=== PATIENT | male | born 1965 | race Caucasian/White ===

== ENCOUNTER → 2016-09-18 | Outpatient (CLI) | payer OTHER ==
[~2016-09-18] MED LIST: ALLO100T PO; ALLO300T2 PO; ASPEC81 PO; INDO-24 PO; KPP250 PO; LAMO100T16 PO; LAMO200T38 PO; METO1TAB69 PO; METO50TA7 PO; PRLSR20 PO
[2016-09-18 12:39] LABS: ALT/SGPT 45 U/L (12-78); BLOOD UREA NITROGEN 8 mg/dl (7-18); BUN/CREATININE RATIO 9.2 (10-20); CALCIUM 9.4 mg/dl (8.5-10.1); CARBON DIOXIDE 28 mmol/L (21-32); CHLORIDE 104 mmol/L (98-107); CREATININE 0.87 mg/dl (0.60-1.40); GLUCOSE 113 mg/dl (70-99); POTASSIUM 3.8 mmol/L (3.5-5.1); SODIUM 140 mmol/L (136-145)
[2016-09-18 12:42] LABS: ALB/GLOB RATIO 0.8 (0.9-2); ALKALINE PHOSPHATASE 101 U/L (45-117); AST/SGOT 80 U/L (15-37)
[2016-09-18 12:54] LABS: BASO % 0.8 %; BASO ABS # 0.03 K/uL (0-0.2); COMPLETE YES; EOS % 1.1 %; HEMATOCRIT 44.3 % (42-52); IG% 0.8 %; LYMPH % 27.8 %; MEAN CELL VOLUME 101.1 fL (80-100); MEAN CORPUSCULAR HEMOGLOBIN 34.7 pg (25-34); MEAN CORPUSCULAR HGB CONC 34.3 g/dl (32-36); MEAN PLATELET VOLUME 10.8 fL (7.4-10.4); MONO % 7.8 %; NEUT % 61.7 %; PLATELET COUNT 105 K/uL (130-400); RED BLOOD COUNT 4.38 M/uL (4.7-6.1)
== END | disposition home or self-care (01) ==
LOC: C.LAB 10:10
PROVIDERS: ATTEND Psychiatry & Neurology Neurology
DX: Z51.81 Encounter for therapeutic drug level monitoring (principal)

== ENCOUNTER 2017-03-31 21:01 | Emergency (ER) | payer BC ==
[~2017-03-31] VITALS: Ht 177.8 cm; Wt 108.9 kg
[~2017-03-31 21:01] MED LIST changes: -ALLO100T PO; -ASPEC81 PO; -LAMO100T16 PO; +LAMO200T35 PO; -LAMO200T38 PO; +METO100T44 PO; -METO1TAB69 PO; -METO50TA7 PO
[2017-03-31 21:03] VITALS: TEMP 36.7; Ht 177.8 cm; Wt 108.9 kg
--- NOTE | 2017-03-31 21:28 | EMERGENCY ROOM VISIT NOTE ---
History First contact with patient: 21:07 Chief Complaint: LEG PAIN,LEG INJURY Stated Complaint: SWELLING/PAIN IN L LEG AND DISCOLORATION History of Present Illness The patient is a 52 year old male who presents to the Emergency Room with complaints of increased left leg pain and swelling today. He states the pain and increased swelling is in the upper leg. He always has lower leg swelling. The patient states that he stands all day at work and then when he is at home he normally cannot sit for long periods due to his back pain. The patient has been seen here in the past for the same symptoms. He also states that he follow -up with his family doctor. He has been wearing compression stockings but did not wear them today. He states he only has knee-high right now but he was called and told that his thigh-high compression stockings would be an today. The patient did not have a chance today because he was at work to pick them up. He states his family doctor has told him if his legs do not get any better he will need to be referred to vascular surgery for his legs. The patient denies any chest pain or shortness of breath. The patient denies any history of blood clots. The patient states he has chronic discoloration of both his legs. Review of Systems 10 system review was performed and was negative unless stated otherwise history of present illness. Past Medical/Surgical History Medical Problems: (1) Gout (2) Seizure disorder Social History Smoking Status: Former Smoker Alcohol Use: occasionally Drug Use: none Marital Status: Housing Status: lives with family Occupation Status: employed Current/Historical Medications Scheduled Allopurinol (Zyloprim), 300 MG PO DAILY Lamotrigine (Lamictal), 300 MG PO BID Levetiractam (Keppra), 250 MG PO DAILY Metoprolol Succ (Toprol Xl) (Toprol-Xl ), 100 MG PO DAILY Omeprazole (Prilosec), 20 MG PO DAILY Scheduled PRN Indomethacin (Indocin), 50 MG PO TID PRN for GOUT Physical Exam Vital Signs Date Time Temp Pulse Resp B/P (MAP) Pulse Ox O2 Delivery O2 Flow Rate FiO2 03/31/17 21:03 36.7 84 20 155/97 93 Room Air Physical Exam GENERAL: 52-year-old white male appears in no acute distress. MENTAL Status: Alert and oriented 3. LUNGS: Clear auscultation without wheezes rales or rhonchi. CARDIAC: Regular rate and rhythm with occasional ectopy. Pulses is full and equal throughout. BILATERAL LOWER EXTREMITIES: Bilateral lower extremities with brown spots and discoloration with moderate varicose veins bilaterally. The patient has some edema noted of the left lower extremity which is not pitting. He also has a large varicose vein noted on the medial aspect of his upper thigh which is worse with weightbearing. There is no erythema or palpable cords in this area. Negative Homans bilaterally. SKIN: There is also noted the patient has dry patches of skin over both his lower legs and on his forearms. His hands are also dry. Medical Decision & Procedures ED Course The patient was evaluated. I discussed with the patient extensively that he has moderate to severe varicose veins in both his legs and that he needs to wear his compression stockings every day. When he gets home from work he needs to elevate his legs whenever possible. The patient verbalized understanding. I did review the patient's EMR. The patient was here in December for similar symptoms when he had a complete workup of bilateral venous Dopplers and complete lab work which was unremarkable. Medical Decision Differential diagnosis include varicose pains, DVT, superficial phlebitis, cellulitis, stasis dermatitis [place] Drug Monitoring Program Search Results: patient reviewed within database Medication Reconcilliation Current Medication List: was personally reviewed by me Blood Pressure Screening Patient's blood pressure: Elevated blood pressure Blood pressure disposition: Elevated BP felt to be situational Impression Primary Impression: Varicose veins of lower extremity with inflammation, bilateral Additional Impression: Eczema Departure Information Dispostion Home / Self-Care Condition GOOD Referrals Giana Wan M.D. 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 Keep legs elevated when you get home from work. Recommend evaluation by vascular surgeon for your varicose veins. For the dry skin recommend avoiding hot showers. Keep skin is dry as possible. Recommend [id number] dermatology approved moisturizer such as Curel, Eucerin Problem Qualifiers Additional Impression: Eczema Eczema type: unspecified Qualified Codes: L30.9 - Dermatitis, unspecified
[2017-03-31 21:36] VITALS: BP 151/86; PULSE 91; O2SAT 94
[2017-03-31] MEDS ORDERED: ASPI81TA28 PO (21:37)
== END 2017-03-31 21:36 | disposition home or self-care (01) ==
LOC: C.EDB 21:02 → C.EDC 21:36
DX: I83.11 Varicose veins of right lower extremity with inflammation (principal); I83.12 Varicose veins of left lower extremity with inflammation; L30.9 Dermatitis, unspecified; M10.9 Gout, unspecified; G40.909 Epilepsy, unspecified, not intractable, without status epilepticus; Z87.891 Personal history of nicotine dependence; Z79.899 Other long term (current) drug therapy

== ENCOUNTER → 2017-05-26 | Outpatient (CLI) | payer BC ==
[~2017-05-26] MED LIST changes: +ASPI81TA28 PO
[2017-05-26 18:09] LABS: INR 1.1 (0.9-1.1); PTT PATIENT 28.3 SECONDS (21.0-31.0)
[2017-05-26 18:30] LABS: BASO % 0.8 %; BASO ABS # 0.03 K/uL (0-0.2); EOS % 3.5 %; EOS ABS # 0.13 K/uL (0-0.5); HEMATOCRIT 40.5 % (42-52); LYMPH % 29.9 %; LYMPH ABS # 1.11 K/uL (1.2-3.4); MEAN CORPUSCULAR HEMOGLOBIN 34.6 pg (25-34); MEAN CORPUSCULAR HGB CONC 34.6 g/dl (32-36); MEAN PLATELET VOLUME 10.4 fL (7.4-10.4); MONO % 8.9 %; MONO ABS # 0.33 K/uL (0.11-0.59); NEUT % 56.9 %; NEUT ABS # 2.11 K/uL (1.4-6.5); PLATELET COUNT 85 K/uL (130-400); RED CELL DISTRIBUTION WIDTH CV 13.3 % (11.5-14.5); RED CELL DISTRIBUTION WIDTH SD 48.5 fL (36.4-46.3); WHITE BLOOD COUNT 3.71 K/uL (4.8-10.8)
[2017-05-26 18:35] LABS: BLOOD UREA NITROGEN 5 mg/dl (7-18); CALCIUM 8.8 mg/dl (8.5-10.1); CARBON DIOXIDE 29 mmol/L (21-32); CREATININE 0.69 mg/dl (0.60-1.40); GLUCOSE 85 mg/dl (70-99); SODIUM 143 mmol/L (136-145)
== END | disposition home or self-care (01) ==
LOC: C.LAB 16:46
PROVIDERS: ATTEND Physician Assistant Medical
DX: Z00.00 Encounter for general adult medical examination without abnormal findings (principal); I10 Essential (primary) hypertension; I87.2 Venous insufficiency (chronic) (peripheral)

== ENCOUNTER 2017-05-29 07:49 | Day surgery (SDC) | payer BC ==
[~2017-05-29] VITALS: Ht 177.8 cm; Wt 107.0 kg
[2017-05-29 08:05] VITALS: BP 142/90; PULSE 76; TEMP 37; O2SAT 94; Ht 177.8 cm; Wt 107.0 kg
--- NOTE | 2017-05-29 08:21 | History and Physical ---
History & Physical Date May 29, 2017. Chief Complaint Varicose veins History of Present Illness Mr. Mendez is a 52-year-old white male with a history of Seizure Disorder, Hypertension, Gait Disturbance, Ataxia, Gout, Anemia, and longstanding Varicose Veins / Chronic Venous Insufficiency with a history of Venous Stasis Dermatitis and Cellulitis here today for left GSV RFA. Developed varicose veins years ago, but over the last 3 or 4 years his varicosities are much more prominent, are becoming painful, and he has developed more and more leg edema and pigmentation changes. More recently patient has developed stasis dermatitis / cellulitis. He was evaluated at [facility] ER on 01/02/2017 and again on 03/31/2017 for leg edema and discoloration of bilateral legs secondary to stasis dermatitis. He was also treated for a lower extremity cellulitis by his PCP on 03/28/2017. Venous reflux ultrasound on 04/09/2017 showed dilated, reflux left GSV with varices. Right GSV dilated at [facility]J with reflux throughout. Past Medical/Surgical History Medical Problems: (1) Gout (2) Seizure disorder Additional History Hepatic Disease: No Endocrine Disorder: No Kidney Disease: No Hypertension: Yes Heart Disease: Yes Bleeding Tendencies: No Infectious Diseases: No Allergies Coded Allergies: No Known Allergies (Verified , 05/29/17) Home Medications Scheduled Allopurinol (Zyloprim), 300 MG PO DAILY Aspirin (Aspirin Ec), 81 MG PO DAILY Lamotrigine (Lamictal), 300 MG PO BID Levetiractam (Keppra), 250 MG PO DAILY Metoprolol Succ (Toprol Xl) (Toprol-Xl ), 100 MG PO DAILY Scheduled PRN Indomethacin (Indocin), 50 MG PO TID PRN for GOUT Physical Examination Skin: warm/dry Respiratory/Chest: lungs clear Cardiovascular: regular rate, rhythm Abdomen / GI: normal bowel sounds Extremities: + pertinent finding (prominent varicosities bilaterally) Diagnosis Chronic venous insufficiency ASA Classification: ASA Class II Plan of Treatment Left GSV RFA
--- NOTE | 2017-05-29 08:22 | Pre Sedation Assessment ---
Pre Sedation Assessment General Date of Sedation: May 29, 2017. Review Cardiovascular: regular rate, rhythm, no edema Lungs: chest non-tender, lungs clear Pre-Sedation Airway Assessment Smoking Status: Former Smoker Hx of Sleep Apnea: No Hx of difficult intubation: No Thyro-mental Distance: > 3 Finger Breadths Oral Cavity: Dental Abnormalities Mallampati Classification: Class II ASA Classification: Class II Procedure Planning Contraindications for Sedation: None Current Medications Reviewed: Yes Notes The planned sedation has been discussed with the patient. Informed Consent was obtained. I have identified the patient, determined the appropriateness of sedation and have assessed the patient immediately prior to the procedure. All medicine(s) and interventions are by my order.
[2017-05-29] MEDS ORDERED: FENTANYL CITRATE INJ 50 MCG/1 ML 2 ML VIAL ONE (09:30)
[2017-05-29] MEDS ORDERED: LIDOCAINE/EPINEPHRINE 1% INJ 50 ML VIAL ONE (09:30)
[2017-05-29] MEDS ORDERED: SODIUM BICARB 8.4% INJ 50 MEQ/50 ML SYR IV ONE (09:30)
[2017-05-29] MEDS ORDERED: MIDAZOLAM HCL 1 MG/ML 2ML VIAL ONE (09:31)
[2017-05-29] MEDS ORDERED: LIDOCAINE HCL 1% 20 ML VIAL ONE (09:42)
--- NOTE | 2017-05-29 10:26 | Post Sedation Assessment ---
Post Sedation Assessment General Date of Sedation May 29, 2017. Vital Signs: Vital Signs Past 12 Hours Date Time Temp Pulse Resp B/P (MAP) Pulse Ox O2 Delivery O2 Flow Rate FiO2 05/29/17 08:05 37 76 18 142/90 (107) 94 Room Air Post Procedure Recovery Score Activity: (2) Moves 4 extremities * Respiration: (2) Deep breath/cough Circulation: (2) +/-20% PreAnes Value Consciousness: (2) Fully Awake Oxygen Saturation: (2) > 92% On Room Air Discharge Sedation Level of Care: Phase I Post Sedation Plan On clinical assessment, the patient appears to have tolerated the sedation without complications. Patient is recovering as anticipated. Patient will continue to be monitored by nursing and may be discharged when sedation discharge criteria are met per below protocol. Upon Completions of procedure and additional 15 minutes continue every 5 minute vital signs and the P.A.R. score; then discharge to a Phase I or Fast Track to Phase II per the following guidelines: * Discharge Patient to appropriate Phase II area if PAR is 8 or greater or return to pre- procedure baseline. The post - procedure orders will be as directed. * If PAR score is less than 8 or not return to pre-procedure baseline then patient will follow Phase I monitoring till PAR is reached for Phase II. The Phase I may be done in procedure room or may call to secure a Phase I area. * If naloxone or flumazenil are used for reversal, hold in Phase I for an additional 60 -120 minutes before discharge to Phase II. Please call the Sedation Physician to re-evaluate and complete post-note for discharge to Phase II area. Do NOT discharge from procedure sedation or Phase 1 until post- sedation evaluation note is complete by procedure /sedation MD Sedation Discharge Instructions to be given to the patient at discharge to home.
--- NOTE | 2017-05-29 10:27 | [facility] Operative Report ---
Operative Report Operative Date May 29, 2017. Pre-Operative Diagnosis Peripheral Vascular Disease Post-Operative Diagnosis peripheral vascular disease Procedure(s) Performed Left Lower Extremity Greater Saphenous Vein Radio Frequency Ablation, Moderate Sedation from 1012 - Surgeon Dr. Reich Cloth Bleaching Range Tender Surgeon(s) None Estimated Blood Loss 5 Findings Dilated left GSV with varicosities Specimens None Drains None Anesthesia Type IV Sedat Cons RN Only Complication(s) none Disposition Recovery Room / PACU Indications chronic venous insufficiency Description of Procedure US guided access Left GSV above the knee. Catheter inserted, 3cm from SFJ. Tumescent injected. US confirmed not in deep system. 2:20, 7 cycles of RFA Left GSV. No complications. Patient tolerated well. US confirmed no DVT post procedure. SUMMARY: 1. Successful Left GSV RFA I attest to the content of the Intraoperative Record and any orders documented therein. Any exceptions are noted below.
[2017-05-29] MEDS ORDERED: LIDOCAINE HCL 1% 20 ML VIAL SQ ONE (10:28)
[2017-05-29] MEDS ORDERED: ORM MISCELLANEOUS MED XX ONE (10:28)
[2017-05-29] MEDS ORDERED: MIDAZOLAM HCL 1 MG/ML 2ML VIAL IV ONE (10:28)
[2017-05-29] MEDS ORDERED: FENTANYL CITRATE INJ 50 MCG/1 ML 2 ML VIAL IV ONE (10:28)
--- NOTE | 2017-05-29 10:29 | Discharge Instructions ---
Discharge Instructions Procedure Procedure Date: May 29, 2017. Reason for Visit: Venous Insufficiency. Discharge Discharge Date: May 29, 2017. Discharge Diagnosis: Venous insufficiency Last Recorded Wt (Kilograms): 107 Anesthesia Post Anesthesia Instructions: If you have had General Anesthesia or IV Sedation: * Do not drive today. * Resume driving when surgeon permits. * Do not make important decisions or sign legal documents today. * Call surgeon for: 1. Temperature elevations greater than 101 degrees F. 2. Uncontrollable pain. 3. Excessive bleeding. 4. Persistent nausea and vomiting. 5. Medication intolerance (nausea, vomiting or rash). * For nausea and vomiting use only clear liquids such as: tea, soda, bouillon until nausea subsides, then gradually increase diet as tolerated. * If you have any concerns or questions, call your surgeon's office. If physician is unavailable and it is an emergency, call 911 or go to the nearest emergency room. Instructions Activity Recommendations: limitations as noted below Recommended Home Diet: resume previous diet Allergies: Coded Allergies: No Known Allergies (Verified , 05/29/17) Follow Up Additional Instructions: Follow instructions as outlined in paperwork from Dr. Reich' office. Up walking today. Follow up Ultrasound as scheduled. HONORIO wrap until scheduled ultrasound Post ultrasound wear compression stockings indefinitely. Any severe pain, present to the emergency room for evaluation for DVT. Follow-up with: As scheduled Dasha Barker Recommendations: Call your doctor if: * Temperature above 101 degrees * Pain not relieved by pain medicine ordered * There is increased drainage or redness from any incision * You have any unanswered questions or concerns. Your Doctors Instructions noted above were prepared by provider Hero Reich. Patient Signature Section: Patient Instructions Signature Page Uvaldo Mendez Patient (or Guardian) Signature/Date: I have read and understand the instructions given to me by my caregivers. Caregiver/RN/Doctor Signature/Date: The above-named patient and/or guardian has received patient instructions on this date. + Original Patient Signature Page (only) stays with chart. Please make copy for patient.
[2017-05-29 10:45] VITALS: BP 135/80; PULSE 69; TEMP 36.8; O2SAT 94
[2017-05-29 11:15] VITALS: BP 121/76; PULSE 73; TEMP 36.8; O2SAT 96
== END 2017-05-29 11:20 | disposition home or self-care (01) ==
LOC: C.ACU 07:49
PROVIDERS: ATTEND Internal Medicine Interventional Cardiology
DX: I73.9 Peripheral vascular disease, unspecified (principal); I83.813 Varicose veins of bilateral lower extremities with pain; I87.2 Venous insufficiency (chronic) (peripheral); I83.893 Varicose veins of bilateral lower extremities with other complications; G40.909 Epilepsy, unspecified, not intractable, without status epilepticus; M10.9 Gout, unspecified; I10 Essential (primary) hypertension; Z82.69 Family history of other diseases of the musculoskeletal system and connective tissue; Z82.49 Family history of ischemic heart disease and other diseases of the circulatory system; Z83.3 Family history of diabetes mellitus; Z87.891 Personal history of nicotine dependence; Z79.899 Other long term (current) drug therapy; Z79.82 Long term (current) use of aspirin

== ENCOUNTER 2017-07-25 22:03 | Emergency (ER) | payer BC ==
[~2017-07-25] VITALS: Ht 180.3 cm; Wt 106.0 kg
[~2017-07-25 22:03] MED LIST changes: -PRLSR20 PO
[2017-07-25 22:10] VITALS: TEMP 36.9; Ht 180.3 cm; Wt 106.0 kg
--- NOTE | 2017-07-25 22:33 | EMERGENCY ROOM VISIT NOTE ---
History Report prepared by Lawson: Javy Lozada Under the Supervision of: Dr. Jessica Aquino D.O. First contact with patient: 22:14 Chief Complaint: RIB PAIN Stated Complaint: RIB PAIN/CAN'T BREATHE, LEG NUMB, CAN'T LIFT ARM History of Present Illness The patient is a 52 year old male who presents to the Emergency Room with complaints of constant SOB beginning today. The patient states that he fell six days ago, and hurt the left side of back. He notes that he hit his head when he fell, but did not lose consciousness. He reports that he remembers the fall and was able to get up on his own afterwards. The patient states that he was mowing his daughter's grass today and was swiveling around in the seat of the mower. He reports that he developed SOB from twisting his upper body. He denies any abdominal pain. She also notes that the patient was bitten on the leg by a tick six days ago and reports that she is worried that he might have Lyme disease. The patient states that he has a history of seizures and takes Lamictal. He notes that he also takes an 81mg baby aspirin and metoprolol. No other anticoagulation. No seizures since fall on Friday. Patient denies any neck pain. Patient has not had any vomiting or change in bowel movements. Patient denies noting any blood in his urine. Source of History: patient, spouse/significant other () Onset: today Position: chest Quality: other (SOB) Timing: constant Associated Symptoms: + back pain (left-sided), + weakness, + numbness, No LOC, No abdominal pain Review of Systems See HPI for pertinent positives & negatives. A total of 10 systems reviewed and were otherwise negative. Past Medical & Surgical Medical Problems: (1) Gout (2) Seizure disorder Family History No pertinent family history stated. Social History Smoking Status: Former Smoker Alcohol Use: occasionally Drug Use: none Marital Status: Housing Status: lives with family Occupation Status: employed Current/Historical Medications Scheduled Allopurinol (Zyloprim), 300 MG PO DAILY Aspirin (Aspirin Ec), 81 MG PO DAILY Lamotrigine (Lamictal), 300 MG PO BID Levetiractam (Keppra), 250 MG PO DAILY Metoprolol Succ (Toprol Xl) (Toprol-Xl ), 100 MG PO DAILY Omeprazole (Prilosec), 20 MG PO BID Scheduled PRN Diazepam (Valium), 5 MG PO Q8 PRN for Muscle Spasms Indomethacin (Indocin), 50 MG PO TID PRN for GOUT Oxycodone/Acetaminophen 5MG/325MG (Percocet 5MG/325MG), 1-2 TABS PO Q6 PRN for Pain Allergies Coded Allergies: No Known Allergies (Verified , 07/25/17) Physical Exam Vital Signs Date Time Temp Pulse Resp B/P (MAP) Pulse Ox O2 Delivery O2 Flow Rate FiO2 07/26/17 02:20 77 18 146/104 93 07/25/17 22:10 36.9 86 20 129/83 92 Room Air Physical Exam GENERAL: alert, well nourished, no distress, non-toxic, appears in pain HEAD: normal cephalic, well healed scar noted to the right frontotemporal scalp EYE EXAM: normal conjunctiva, PERRL and EOM's grossly intact OROPHARYNX: no exudate, no erythema, lips, buccal mucosa, and tongue normal and mucous membranes are moist EARS: TMs clear b/l, no hemotympanum NECK: supple, no nuchal rigidity, no adenopathy, non-tender, no JVD, no tracheal deviation CHEST: stable to compression anteriorly and posteriorly, no chest wall crepitus LUNGS: Normal chest wall mechanics, decreased breath sounds bilaterally, no wheezes, rhonchi, rales. HEART: no murmurs, S1 normal and S2 normal ABDOMEN: abdomen soft, non-tender, normo-active bowel sounds, no masses, no rebound or guarding. PELVIS: stable to compression anteriorly and posteriorly BACK: Back is symmetrical on inspection, no midline tenderness, no CVA tenderness, area of ecchymosis over left flank, tender to palpation, no crepitus. UPPER EXTREMITIES: full active and passive range of motion of all joints without tenderness to palpation LOWER EXTREMITIES: full active and passive range of motion of all joints without tenderness to palpation, prox LLE with subcentimeter mildly erythematous papular lesion consistent with insect bite, no retained FB, no vesicles, no erythema migrans. NEURO EXAM: Normal sensorium, cranial nerves II-XII grossly intact, normal speech, no gross weakness of arms, no gross weakness of legs. GCS: 15. Medical Decision & Procedures ER Provider Diagnostic Interpretation: Radiology results have been interpreted by the radiologist and reviewed by me. CT HEAD: No evidence for acute intracranial hemorrhage or mass effect. No acute calvarial injury. Chronic changes to the right frontal bone. CT CHEST With Contrast: No pneumothorax or effusion. No acute cardiovascular findings. No evidence for pulmonary contusion or acute infiltrate. Dependent atelectasis and old granulomatous changes. Lingular scarring. Atherosclerosis including coronary artery calcifications. Chronic deformity of the right clavicle. No acute fracture visualized. CT ABDOMEN & PELVIS With Contrast: No CT evidence for acute intra-abdominal injury or hemoperitoneum. No acute fracture visualized. Scalloping of the liver periphery, configuration concerning for cirrhosis. Splenomegaly, 14.7cm craniocaudal length. Small splenic granulomas. Moderate left renal hydronephrosis is noted with cortical thinning, also seen to a slightly less prominent degree on the previous examination in 2012. Transition is again at the ureteropelvic junction. Correlate with history of chronic UPJ obstruction. Fatty inguinal hernias. Mild urinary bladder wall thickening. Correlate for cystitis. A few scattered small bowel fluid levels are noted, without significant dilation or focal obstruction. Degenerative/chronic osseous changes. Radiologist: Roberto Kaufman Laboratory Results 07/25/17 22:32 Red Blood Count 3.91, Mean Corpuscular Volume 101.5, Mean Corpuscular Hemoglobin 35.0, Mean Corpuscular Hemoglobin Concent 34.5, Mean Platelet Volume 10.0, Neutrophils (%) (Auto) 68.2, Lymphocytes (%) (Auto) 21.3, Monocytes (%) ( Auto) 7.9, Eosinophils (%) (Auto) 1.8, Basophils (%) (Auto) 0.8, Neutrophils # ( Auto) 3.36, Lymphocytes # (Auto) 1.05, Monocytes # (Auto) 0.39, Eosinophils # ( Auto) 0.09, Basophils # (Auto) 0.04 07/25/17 22:32 Test 07/25/17 22:32 White Blood Count 4.93 K/uL (4.8-10.8) Red Blood Count 3.91 M/uL (4.7-6.1) Hemoglobin 13.7 g/dL (14.0-18.0) Hematocrit 39.7 % (42-52) Mean Corpuscular Volume 101.5 fL (80-100) Mean Corpuscular Hemoglobin 35.0 pg (25-34) Mean Corpuscular Hemoglobin Concent 34.5 g/dl (32-36) Platelet Count 78 K/uL (130-400) Mean Platelet Volume 10.0 fL (7.4-10.4) Neutrophils (%) (Auto) 68.2 % Lymphocytes (%) (Auto) 21.3 % Monocytes (%) (Auto) 7.9 % Eosinophils (%) (Auto) 1.8 % Basophils (%) (Auto) 0.8 % Neutrophils # (Auto) 3.36 K/uL (1.4-6.5) Lymphocytes # (Auto) 1.05 K/uL (1.2-3.4) Monocytes # (Auto) 0.39 K/uL (0.11-0.59) Eosinophils # (Auto) 0.09 K/uL (0-0.5) Basophils # (Auto) 0.04 K/uL (0-0.2) RDW Standard Deviation 48.9 fL (36.4-46.3) RDW Coefficient of Variation 13.2 % (11.5-14.5) Immature Granulocyte % (Auto) 0.0 % Immature Granulocyte # (Auto) 0.00 K/uL (0.00-0.02) Prothrombin Time 12.0 SECONDS (9.0-12.0) Prothromb Time International Ratio 1.1 (0.9-1.1) Anion Gap 5.0 mmol/L (3-11) Est Creatinine Clear Calc Drug Dose 143.3 ml/min Estimated GFR () 121.9 Estimated GFR (Non- 105.2 BUN/Creatinine Ratio 7.8 (10-20) Calcium Level 8.6 mg/dl (8.5-10.1) Total Bilirubin 0.5 mg/dl (0.2-1) Aspartate Amino Transf (AST/SGOT) 124 U/L (15-37) Alanine Aminotransferase (ALT/SGPT) 43 U/L (12-78) Alkaline Phosphatase 154 U/L (45-117) Troponin I < 0.015 ng/ml (0-0.045) Total Protein 9.1 gm/dl (6.4-8.2) Albumin 3.5 gm/dl (3.4-5.0) Globulin 5.6 gm/dl (2.5-4.0) Albumin/Globulin Ratio 0.6 (0.9-2) Laboratory results per my review. Medications Administered Medications (Trade) Dose Ordered Sig/Aspen Route Start Time Stop Time Status Last Admin Dose Admin Fentanyl Citrate (Fentanyl Inj) 100 mcg NOW STAT IV 07/25/17 23:22 07/25/17 23:23 DC 07/25/17 23:32 100 MCG Diazepam (Valium Inj) 5 mg STK-MED ONCE .ROUTE 07/26/17 00:46 07/26/17 00:47 DC 07/26/17 00:48 2.5 MG Oxycodone/ Acetaminophen (Percocet 5-325mg Tab) 1 tab NOW ONCE PO 07/26/17 01:45 07/26/17 01:46 DC 07/26/17 01:45 1 TAB Ketorolac Tromethamine (Toradol Inj) 30 mg NOW STAT IV 07/26/17 01:38 07/26/17 01:39 DC 07/26/17 01:45 30 MG Oxycodone/ Acetaminophen (Percocet 5/ 325MG Home Pack) 1 homepack STK-MED ONCE PO 07/26/17 02:15 07/26/17 02:16 DC 07/26/17 02:20 1 HOMEPACK ECG Per My Interpretation Indication: SOB/dyspnea Rate (beats per minute): 82 Rhythm: sinus rhythm Findings: T-wave inversion (lead 3), no acute ischemic change, other (Normal axis, normal intervals) ED Course 2220: The patient was evaluated in room C5. A complete history and physical exam was performed. 2322: Fentanyl Citrate 100mcg IV 0033: Diazepam 2.5mg IV 0121: I reevaluated the patient and updated him on his results so far. He is still having pain 0138: Toradol Inj 30mg IV 0145: Oxycodone/Acetaminophen 1 tab PO 0146: I rechecked the patient. 0202: Upon reevaluation, the patient is feeling better. I discussed the findings and the treatment plan with the patient. He verbalizes agreement and understanding. The patient was discharged home. Medical Decision Differential diagnosis: Etiologies such as fracture, dislocation, intra-abdominal, pneumothorax, intrathoracic , intracranial, neurologic, as well as other traumatic pathologies were entertained. Patient advised to follow-up with family doctor regarding possible evaluation for Lyme's as Lyme testing in the blood tonight would likely be falsely negative if he did indeed sustain a tick bite. Patient improved here following pain medication. Patient with normal nonfocal neuro exam. I do not suspect occult spinal injury. No evidence of additional trauma noted on CT imaging. I do not suspect any other occult dramatic injury. Labs otherwise reassuring. Patient heme dynamically stable throughout. Patient mildly improved following pain medication. Discussed follow-up with family doctor, use of pain medication and muscle relaxer, use of incentive spirometer, symptoms to watch and return for, precautions regarding driving or alcohol use while taking pain medications and muscle relaxers, activity, he and verbalized understanding of all this and were agreeable with plan. Patient with chronic thrombocytopenia , level tonight appears close to patient's previously recorded level. Discussed with patient risk of occult bleeding due to thrombocytopenia in the setting of trauma. Medication Reconcilliation Current Medication List: was personally reviewed by me Blood Pressure Screening Patient's blood pressure: Normal blood pressure Blood pressure disposition: Did not require urgent referral Impression Primary Impression: Fall Additional Impressions: Left flank pain Contusion Thrombocytopenia Scribe Attestation The scribe's documentation has been prepared under my direction and personally reviewed by me in its entirety. I confirm that the note above accurately reflects all work, treatment, procedures, and medical decision making performed by me. Departure Information Dispostion Home / Self-Care Prescriptions Oxycodone/Acetaminophen 5MG/325MG (PERCOCET 5MG/325MG) Tab 1-2 TABS PO Q6 Y for Pain, #15 TAB Prov: Jessica Aquino, DO 07/26/17 Diazepam (Valium) 5 Mg Tab 5 MG PO Q8 Y for Muscle Spasms, #15 TAB Prov: Jessica Aquino., DO 18 Referrals No Doctor, Assigned (PCP) Forms HOME CARE DOCUMENTATION FORM, IMPORTANT VISIT INFORMATION, WORK / SCHOOL INSTRUCTIONS Patient Instructions My [facility] Additional Instructions Please avoid heavy lifting or strenuous activity until you are feeling improved. Our radiologists will reread the CAT scans from [facility] in the morning as a precaution. If there is any discrepancy you will receive a phone call. Please follow-up with your family doctor to recheck your condition and assure that you are improving. He may use the pain medication and muscle relaxer as prescribed. Please be cautious when taking them together as you may feel very sleepy or drowsy. Please do not take either [address] drink alcohol. Please use the incentive spirometer daily to assure that you are still occasionally taking deep breaths to help prevent pneumonia. If you have any worsening pain, have difficulty urinating, have a worsening cough or trouble breathing, develop fevers or chills, dizziness, feel unsteady on your feet, or you have any other new concerns, please return to the emergency room. Please continue to have your platelets checked at frequent intervals to assure they are not any lower than you have been in the past. Low platelets puts you at a slightly increased risk of bleeding. Problem Qualifiers Primary Impression: Fall Encounter type: initial encounter Qualified Codes: W19.XXXA - Unspecified fall, initial encounter Additional Impressions: Contusion Encounter type: initial encounter Contusion area: thoracic wall Contusion of thoracic wall detail: back wall of thorax Laterality: left Qualified Codes: S20.222A - Contusion of left back wall of thorax, initial encounter
[2017-07-25] MEDS ORDERED: OPTIRAY 320 IV PRN (22:45)
[2017-07-25] MEDS ORDERED: PRLSR20 PO (22:57)
[2017-07-25 23:04] LABS: HEMATOCRIT 39.7 % (42-52); HEMOGLOBIN 13.7 g/dL (14.0-18.0); MEAN CELL VOLUME 101.5 fL (80-100); MEAN CORPUSCULAR HGB CONC 34.5 g/dl (32-36); RED CELL DISTRIBUTION WIDTH CV 13.2 % (11.5-14.5); RED CELL DISTRIBUTION WIDTH SD 48.9 fL (36.4-46.3); WHITE BLOOD COUNT 4.93 K/uL (4.8-10.8)
[2017-07-25 23:13] LABS: INR 1.1 (0.9-1.1)
[2017-07-25] MEDS ORDERED: FENTANYL CITRATE INJ 50 MCG/1 ML 2 ML VIAL IV STA (23:22)
[2017-07-25 23:23] LABS: PLATELET COUNT 78 K/uL (130-400)
[2017-07-25 23:36] LABS: BASO % 0.8 %; BASO ABS # 0.04 K/uL (0-0.2); EOS % 1.8 %; EOS ABS # 0.09 K/uL (0-0.5); LYMPH % 21.3 %; LYMPH ABS # 1.05 K/uL (1.2-3.4); MONO % 7.9 %; MONO ABS # 0.39 K/uL (0.11-0.59); NEUT % 68.2 %; NEUT ABS # 3.36 K/uL (1.4-6.5)
[2017-07-25 23:38] LABS: ALBUMIN 3.5 gm/dl (3.4-5.0); ALT/SGPT 43 U/L (12-78); AST/SGOT 124 U/L (15-37); BLOOD UREA NITROGEN 6 mg/dl (7-18); CALCIUM 8.6 mg/dl (8.5-10.1); CARBON DIOXIDE 27 mmol/L (21-32); CREATININE 0.73 mg/dl (0.60-1.40); GLUCOSE 103 mg/dl (70-99); POTASSIUM 4.2 mmol/L (3.5-5.1); SODIUM 138 mmol/L (136-145)
[2017-07-25 23:42] LABS: ALKALINE PHOSPHATASE 154 U/L (45-117); TOTAL PROTEIN 9.1 gm/dl (6.4-8.2)
[2017-07-26] MEDS ORDERED: DIAZEPAM INJ 5 MG/ML 2 ML CARP IV STA (00:33)
[2017-07-26] MEDS ORDERED: DIAZEPAM 5 MG/ML INJ 10ML VIAL ONE (00:46)
[2017-07-26] MEDS ORDERED: KETOROLAC TROMETHAMINE 30 MG/ML VIAL IV STA (01:38)
[2017-07-26] MEDS ORDERED: OXYC-57 PO (01:45)
[2017-07-26] MEDS ORDERED: OXYCODONE/ACETAMINOPHEN 5-325 TAB PO ONE (01:45)
[2017-07-26] MEDS ORDERED: DIAZ-165 PO (01:45)
[2017-07-26] MEDS ORDERED: PERCOCET HOME PACK PO ONE (02:15)
[2017-07-26 02:20] VITALS: BP 146/104; PULSE 77; O2SAT 93
--- NOTE | 2017-07-26 05:44 | DIAGNOSTIC IMAGING REPORT ---
CT (CHEST) THORAX WITH CLINICAL HISTORY: 52 years-old Male presenting with trauma, sob. TECHNIQUE: Multidetector CT imaging of the chest was performed after the administration of intravenous contrast. IV contrast: 94 mL of Optiray 320. A dose lowering technique was used consistent with the principles of ALARA (as low as reasonably achievable). COMPARISON: 10/06/2012. CT DOSE (mGy.cm): The estimated cumulative dose is 3134.[address] scans. FINDINGS: Media Center Assistant topogram: Unremarkable. On soft tissue windows, normal thyroid and thoracic inlet. No axillary, supraclavicular, hilar, or mediastinal lymphadenopathy. Calcified lymph node noted in the right infrahilar region. Atherosclerosis of the aorta. The main pulmonary artery is enlarged measuring over 4 cm in diameter. Normal heart size. Coronary artery calcification. No pericardial or pleural effusion. Cirrhotic morphology of the liver. On lung windows, minimal dependent changes likely atelectasis. Calcified granulomata noted. No other focal nodule or infiltrate. Airways patent. On bone windows, degenerative changes of the spine. No displaced rib fracture. No acute osseous injury. Post traumatic deformity of the right clavicle. Old fracture deformity of the anterolateral right third through sixth ribs. IMPRESSION: 1. No acute intrathoracic injury. 2. No acute osseous injury. 3. Old posttraumatic deformities of the right clavicle and multiple right ribs. 4. Main pulmonary artery enlargement could suggest pulmonary hypertension. 5. Cirrhosis. Electronically signed by: Tito Stoner M.D. 07/26/2017 5:42 AM Dictated Date/Time: 07/26/2017 5:36 AM
--- NOTE | 2017-07-26 05:48 | DIAGNOSTIC IMAGING REPORT ---
HEAD WITHOUT CONTRAST (CT) CLINICAL HISTORY: 52 years-old Male presenting with trauma. TECHNIQUE: Multidetector CT imaging of the head was performed without the use of intravenous contrast. IV contrast: None. A dose lowering technique was used consistent with the principles of ALARA (as low as reasonably achievable). COMPARISON: 12/17/2016. CT DOSE (mGy.cm): The estimated cumulative dose is 3134.26-[address] scans. FINDINGS: Orthodontic Laboratory Technician topogram: Unremarkable. Ventricles and sulci normal in size. Brain parenchyma normal in appearance with preserved mancia-white differentiation. No mass effect or midline shift. No hemorrhage or acute territorial infarct. No extra-axial fluid collection. Paranasal sinuses and mastoid air cells clear. Old defects in the right frontal bone. Old appearing deformity of the nasal bones. Calvarium otherwise intact. IMPRESSION: 1. No acute intracranial abnormality. 2. Old deformities of the right frontal bone and nasal bones. No acute osseous injury. Electronically signed by: Tito Stoner M.D. 07/26/2017 5:46 AM Dictated Date/Time: 07/26/2017 5:43 AM
--- NOTE | 2017-07-26 05:57 | DIAGNOSTIC IMAGING REPORT ---
ABD/PELVIS IV CONTRAST ONLY CLINICAL HISTORY: 52 years-old Male presenting with trauma, left flank injury. TECHNIQUE: Multidetector CT of the abdomen and pelvis was performed after the administration of intravenous contrast. IV contrast: 94 mL of Optiray 320. A dose lowering technique was used consistent with the principles of ALARA (as low as reasonably achievable). COMPARISON: 10/06/2012. CT DOSE (mGy.cm): The estimated cumulative dose is 3134.26 mGy.cm. FINDINGS: Slubber Frame Changer topogram: Unremarkable. Lung bases: Minimal basilar opacities, likely atelectasis. Calcified granuloma noted at the right lower lobe. Normal heart size. Coronary artery calcification. No pericardial or pleural effusion. Liver: Cirrhotic morphology of the liver. No focal lesion allowing for the single phase of contrast. Patent hepatic vasculature. Biliary: No intrahepatic or extrahepatic biliary ductal dilatation. Normal gallbladder. Pancreas: Mild parenchymal atrophy. Spleen: The spleen is enlarged measuring over 13 cm in maximal sagittal dimension. Splenule noted. Adrenal glands: Normal. Kidneys and ureters: Right kidney normal. No hydronephrosis or nephrolithiasis. Right ureter normal. Left kidney demonstrates diffuse cortical thinning and chronic moderate pelvocaliectasis which is slightly increased from prior. There is abrupt transition of the renal pelvis with the proximal left ureter, which is nondilated. This configuration is consistent with ureteropelvic junction obstruction given the absence of mass or calculus. The left ureter is normal. Bladder: Mild circumferential bladder wall thickening. Pelvic organs: Prostate and seminal vesicles normal. Bowel: Normal appendix. No bowel obstruction. Peritoneal cavity: No free fluid or intraperitoneal gas. Lymph nodes: No enlarged lymph nodes in the abdomen or pelvis. Vasculature: Atherosclerosis of the normal caliber abdominal aorta. IVC patent. Varices noted at the gastroesophageal junction. Recanalization of the periumbilical vein. Abdominal wall: Infiltration of the left flank subcutaneous tissue with minimal overlying skin thickening. Musculoskeletal: Degenerative changes of the spine. IMPRESSION: 1. Contusion of the superficial tissues of the left flank. No hematoma. No intra-abdominal injury. No acute osseous injury. 2. Chronic left ureteropelvic junction obstruction with resultant chronic left renal atrophy. 3. Cirrhosis with portal hypertension evidenced by splenomegaly and varices. This has progressed since prior exam. Electronically signed by: Tito Stoner M.D. 07/26/2017 5:56 AM Dictated Date/Time: 07/26/2017 5:47 AM
== END 2017-07-26 02:36 | disposition home or self-care (01) ==
LOC: C.EDB 22:04 → C.EDC 07-26 02:36
DX: S29.9XXA Unspecified injury of thorax, initial encounter (principal); R06.02 Shortness of breath; R10.9 Unspecified abdominal pain; D69.6 Thrombocytopenia, unspecified; X58.XXXA Exposure to other specified factors, initial encounter; Z87.891 Personal history of nicotine dependence; Z79.899 Other long term (current) drug therapy

== ENCOUNTER → 2017-10-08 | Outpatient (CLI) | payer BC ==
[~2017-10-08] MED LIST changes: +DIAZ-165 PO; +GADAVIST IV PRN; +OXYC-57 PO; +PRLSR20 PO
--- NOTE | 2017-10-08 11:14 | DIAGNOSTIC IMAGING REPORT ---
BRAIN COMBO HISTORY: 52 years-old Male R26.9 Gait [id number] acute bilateral hand tremors, left greater than right with double vision COMPARISON: CT head 07/25/2017, brain MRI 09/16/2012 and 07/24/2006. TECHNIQUE: Multiplanar multisequence MRI of the brain was obtained both with and without the use of 10.5 ml Gadavist utilizing seizure protocol. FINDINGS: No restricted diffusion to suggest acute or subacute infarction. Midline structures including the corpus callosum, brainstem, optic chiasm, pituitary and pineal glands appear unremarkable on the sagittal T1 series. No cerebellar tonsillar herniation. Degenerative changes are noted about the imaged cervical spine. No acute intracranial hemorrhage, midline shift, abnormal extra-axial collections, hydrocephalus or intracranial mass. Mild cerebral atrophy. Mild volume loss with increased T2/FLAIR signal involves the inferior aspect of the anterior right frontal lobe suggesting encephalomalacia and gliosis from prior insult. Mesial temporal lobes appear normal. No seizure focus, cortical dysplasia or mancia matter heterotopia identified. There is no abnormal intra-axial or extra-axial enhancement identified. Major flow voids appear patent. Orbits are symmetric and within normal limits. Mastoid air cells are generally clear. Mild thickening about the left nasal turbinates. Hypoplasia of the right frontal sinus. The skull and soft tissues are unremarkable. IMPRESSION: 1. No acute intracranial abnormality. 2. No acute infarction or abnormal enhancement. 3. Chronic changes as above. The above report was generated using voice recognition software. It may contain grammatical, syntax or spelling errors. Electronically signed by: Barrera Harvey M.D. 10/08/2017 11:12 AM Dictated Date/Time: 10/08/2017 11:05 AM
[2017-10-08 12:00] LABS: BASO % 0.6 %; BASO ABS # 0.03 K/uL (0-0.2); EOS % 0.8 %; EOS ABS # 0.04 K/uL (0-0.5); HEMATOCRIT 41.4 % (42-52); HEMOGLOBIN 14.1 g/dL (14.0-18.0); IG# 0.01 K/uL (0.00-0.02); LYMPH % 12.7 %; MEAN CELL VOLUME 103.2 fL (80-100); MEAN CORPUSCULAR HEMOGLOBIN 35.2 pg (25-34); MEAN CORPUSCULAR HGB CONC 34.1 g/dl (32-36); MEAN PLATELET VOLUME 10.3 fL (7.4-10.4); MONO % 7.6 %; MONO ABS # 0.36 K/uL (0.11-0.59); NEUT % 78.1 %; PLATELET COUNT 106 K/uL (130-400); RED CELL DISTRIBUTION WIDTH CV 13.8 % (11.5-14.5); WHITE BLOOD COUNT 4.74 K/uL (4.8-10.8)
[2017-10-08 12:24] LABS: ALBUMIN 3.2 gm/dl (3.4-5.0); ALKALINE PHOSPHATASE 191 U/L (45-117); ALT/SGPT 35 U/L (12-78); AST/SGOT 125 U/L (15-37); BLOOD UREA NITROGEN 6 mg/dl (7-18); CALCIUM 8.8 mg/dl (8.5-10.1); CARBON DIOXIDE 30 mmol/L (21-32); CREATININE 0.77 mg/dl (0.60-1.40); GLUCOSE 124 mg/dl (70-99); POTASSIUM 3.6 mmol/L (3.5-5.1); SODIUM 139 mmol/L (136-145); TOTAL PROTEIN 9.3 gm/dl (6.4-8.2)
== END | disposition home or self-care (01) ==
LOC: C.MRI 10:06
PROVIDERS: ATTEND Physician Assistant
DX: R25.1 Tremor, unspecified (principal); R26.9 Unspecified abnormalities of gait and mobility; R20.0 Anesthesia of skin

== ENCOUNTER 2018-12-14 08:08 | Observation (INO) ==
[2018-12-14] MEDS ORDERED: fentaNYL citrate 100 MCG/2 ML VIAL ONE ×2 (11:27→13:10)
[2018-12-14] MEDS ORDERED: HEPARIN (PORCINE) 1000 UNIT/ML 10 ML (CATH LAB USE ONLY) ONE (11:27)
[2018-12-14] MEDS ORDERED: NiCARDipine HCL INJ 2.5 MG/ML 10 ML AMP ONE (11:27)
[2018-12-14] MEDS ORDERED: MIDAZOLAM HCL 1 MG/ML 2ML VIAL ONE ×2 (11:28→12:40)
[2018-12-14] MEDS ORDERED: NITROGLYCERIN/D5W 100MCG/ML 20ML SYR ONE (11:28)
--- NOTE | 2018-12-14 12:05 | History & Physical Bridge Note ---
Date of Service December 14, 2018 History & Physical Bridge Note I have examined the patient, reviewed the History & Physical and in the interval since the performance of the History & Physical I have noted the following changes of clinical significance: no changes noted
--- NOTE | 2018-12-14 12:05 | Pre Anesthesia Assessment ---
Date of Service December 14, 2018 Pre Sedation Assessment Vital Signs Temp Pulse Resp BP Pulse Ox 12/14/18 08:37 98.1 F 67 18 126/72 97 Cardiovascular RRR, no murmur, no edema Respiratory normal respiratory effort, lungs clear to auscultation Pre-Sedation Airway Assessment Smoking Status: Never smoker Hx Sleep Apnea: No Hx Difficult Intubation: No Short, Thick Neck: No Thyromental Distance: > or= 3.5 Finger Breadths Oral Cavity: + WNL Mallampati Class: III ASA: ASA3 Procedure Planning Contraindications for Sedation: none Current Medications Reviewed: Yes Notes The planned sedation has been discussed with the patient. Informed Consent was obtained. I have identified the patient, determined the appropriateness of sedation and have assessed the patient immediately prior to the procedure. All medicine(s) and interventions are by my order.
[2018-12-14] MEDS ORDERED: ADENOSINE IV SOLN 3 MG/ML 20 ML VIAL IV ONE (12:50)
[2018-12-14] MEDS ORDERED: CLOPIDOGREL BISULFATE 300 MG TAB ONE (13:31)
[2018-12-14 13:36] LABS: iSTAT Arterial Blood Gas HCO3 27 meg/L (19-24); iSTAT Arterial Blood Gas pCO2 41 mmHg (35-46); iSTAT Arterial Blood Gas pH 7.42 (7.35-7.45); iSTAT Arterial Blood Gas pO2 37 mmHg (80-95); iSTAT Carbon Dioxide 28 mEq/l (24-31)
[2018-12-14] MEDS ORDERED: ONDANSETRON INJ 2 MG/ML 2 ML VIAL IV PRN (13:39)
[2018-12-14] MEDS ORDERED: SODIUM CHLORIDE 0.9% 1000ML 1,000 ML IV SCH (15:00)
--- NOTE | 2018-12-14 17:45 | Post Anesthesia Assessment ---
Date of Service December 14, 2018 Post Sedation Assessment Vital Signs Temp Pulse Resp BP Pulse Ox 12/14/18 17:25 98.2 F 97 H 18 129/74 97 12/14/18 16:25 98.1 F 70 18 124/87 98 12/14/18 15:46 98.6 F 72 18 115/74 96 12/14/18 15:25 98.1 F 78 18 128/78 96 12/14/18 14:55 98.2 F 74 18 127/74 98 12/14/18 14:25 65 18 127/81 97 12/14/18 14:10 97.9 F 62 18 122/76 97 12/14/18 13:55 97.9 F 60 18 124/77 96 12/14/18 13:40 97.9 F 65 18 125/74 97 12/14/18 08:37 98.1 F 67 18 126/72 97 Recovery Score Activity: Moves 4 extremities Respiration: Deep Breath/Cough Circulation: +/-20% PreAnes Value Consciousness: Fully Awake Oxygen Saturation: O2 needed for >90% Discharge Sedation Level of Care: Fast Track Phase II Post Sedation Plan On clinical assessment, the patient appears to have tolerated the sedation without complications. Patient is recovering as anticipated. Patient will continue to be monitored by nursing and may be discharged when sedation discharge criteria are met per below protocol. Upon Completions of procedure and additional 15 minutes continue every 5 minute vital signs and the P.A.R. score; then discharge to a Phase I or Fast Track to Phase II per the following guidelines: * Discharge Patient to appropriate Phase II area if PAR is 8 or greater or return to pre- procedure baseline. The post - procedure orders will be as d irected. * If PAR score is less than 8 or not return to pre-procedure baseline then patient will follow Phase I monitoring till PAR is reached for Phase II. The Phase I may be done in procedure room or may call to secure a Phase I area. * If naloxone or flumazenil are used for reversal, hold in Phase I for continued monitoring from when last reversal dose was given for a minimum of 60 minutes or longer pending the nurse and/or physician discretion of patient condition before discharge to Phase II. Please call the Sedation Physician to re-evaluate and complete post-note for discharge to Phase II area. Do NOT discharge from procedure sedation or Phase 1 until post- sedation evaluation note is complete by procedure /sedation MD Sedation Discharge Instructions to be given to the patient at discharge to home.
--- NOTE | 2018-12-14 18:03 | Cardiac Catheterization ---
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 Cardiac Status Clinical evaluation leading to the procedure CAD Presenation: Stable angina Anginal Classification: CCS III Heart Failure: No Cardiogenic Shock within 24 Hours: No Cardiac Arrest within 24 Hours: No Imaging Studies Past 6 Months: Yes Stress Studies Past 6 Months: No Diagnostic Physicians Name: Rico Reich MD Closure Device Percutaneous Entry Location: Radial Closure Device: Radial Band Recommendations: PCI without planned CABG PCI Indication: Angina despite med therapy Lesion Segment Name: mid LAD Culprit Artery: Yes Stenosis Prior to Rx (%): 70 Chronic Total Occlusion: No IVUS: No FFR: Yes Ratio: less than or equal to 0.75% Pre-Procedure TAYLOR Flow: 3 Previously Treated Lesion: No Lesion Complexity: Non-High/Non-C Lesion Length (mm): 28 Thrombus Present: No Bifurcation Lesion: No Guidewire Across Lesion: Stenosis Post-Procedure (%): 0 Post-Procedure TAYLOR Flow: 3 Devices(s) Deployed: Yes Yes Intraprocedure Events Significant Disection: No Perforation: No Cardiac Cath Procedure Full Procedure Date December 14, 2018 Pre-Procedure Diagnosis Pre-Procedure Diagnosis: Angina AUC Score AUC Score: 7 Post-Procedure Diagnosis Post-Procedure Diagnosis: Severe CAD, Successful PCI and Normal Intracardiac Pressures Procedure(s) Performed Procedure(s) Performed: Coronary Angiography, Left Heart Cath, Right Heart Cath, Drug Eluting Stent, Fractional Flow Lacey and Procedure (IVC/iliac venogram) General Merchandise Manager Rico Reich MD Agile Scrum Coach(s) Humberto Estimated Blood Loss Estimated Blood Loss: 15 Medication(s) Medication(s): Clopidogrel, Fentanyl, Heparin, Lidocaine 1%, Nicardipine, Nitroglycerin and Versed Summary of Findings Indication: Angina, lower extremity swelling Access: 6 Fr right radial artery, 6 Fr anti-cubital pain Catheters: 6 Fr [place], 4 Fr pigtail, [place], JL 3 5 EBU 3.5 guide Findings: LM -separate ostium LAD -20% ostial, calcified mid segment with diffuse up to 60% disease angiographically, mid segment luminal irregularities as wraps around apex. Circumflex -large caliber vessel, gives off large OM 2. No significant disease RCA -moderate caliber vessel, dominant, no significant disease RA 2 RV 32/2 PA 29/10/19 PAWP 5 LV 20 PaSat 72% AoSat 92% [place] CO/CI 6.4/2.9 Thermo CO/CI 7.8/3.5 4 Fr pigtail navigated into IVC, left iliac. No evidence of iliac/IVC obstr uction. FFR of mid LAD Left main cannulated with EBU 3.5 guide BMW wire placed into distal LAD ASIST FFR catheter placed into distal LAD IFR 0.91 FFR 0.71 -- PCI -- Antithrombotic therapy: Heparin, clopidogrel Procedure: Mid LAD lesion predilated with 2.5 x 12 compliant balloon Dilated lesion stented with 3.0 x 34 mm Derek drug-eluting stent Stent post-dilated with 3.5 noncompliant balloon IC vasodilators administered for spasm Post procedure TAYLOR 3 flow, stent well expanded with minimal residual stenosis and no apparent cardiac complications. Arterial Closure: TR band Summary: 1. Severe single vessel coronary artery disease -60-70% calcified mid LAD (FFR 0.71). 2. Normal left and right-sided filling pressures. 3. Normal pulmonary artery pressures 4. Negative IVC/iliac venogram for possible venous obstruction 5. Successful PCI of mid LAD with single drug-eluting stent (3.0 x 34 mm [place]; postdilated with 3.5 NC). Recommendations: To PCU for continued monitoring Loaded with clopidogrel 600 mg in Continue dual-antiplatelet therapy for at least 6 months Continue statin, and ASCVD risk factor modification Consult cardiac Rehab Continue compressive therapy for lower extremity edema likely secondary to chronic venous insufficiency, lymphedema. Hemodynamics Rest Ao:: 142/89/107 Final Ao: 111/62/86 LV: 135/20 Recommendations Recommendations: PCI without planned CABG Specimens Specimens: None Radiation Exposure (mGy) 4153 Contrast (mls) 160 Fluids (cc crystalloids) Fluids (cc crystalloids): 160 Drains Drains: None Anesthesia Moderate Procedural Complication(s) None Disposition PCU
[2018-12-14] MEDS: levETIRAcetam 250 MG TAB PO SCH (19:33)
[2018-12-15 07:11] LABS: Hematocrit (blood only) 39.1 % (42-52); Hemoglobin 13.5 g/dL (14.0-18.0); Mean Corpuscular Hemoglobin 35.6 pg (25-34); Mean Corpuscular Hgb Conc 34.5 g/dL (32-36); Mean Corpuscular Volume 103.2 fL (80-100); RDW Coefficient of Variation 13.2 % (11.5-14.5); RDW Standard Deviation 49.6 fL (36.4-46.3); Red Blood Count 3.79 M/uL (4.7-6.1); White Blood Count 3.55 K/uL (4.8-10.8)
[2018-12-15 07:17] LABS: Mean Platelet Volume 10.7 fL (7.4-10.4); Platelet Count 73 K/uL (130-400)
[2018-12-15 07:41] LABS: Basophils # (auto) 0.02 K/uL (0-0.2); Basophils % (auto) 0.6 %; Eosinophils # (auto) 0.18 K/uL (0-0.5); Eosinophils % (auto) 5.1 %; Immature Granulocytes # (auto) 0.01 K/uL (0.00-0.02); Immature Granulocytes % (auto) 0.3 %; Lymphocytes # (auto) 0.93 K/uL (1.2-3.4); Lymphocytes % (auto) 26.2 %; Monocytes # (auto) 0.42 K/uL (0.11-0.59); Monocytes % (auto) 11.8 %; Neutrophils # (auto) 1.99 K/uL (1.4-6.5)
[2018-12-15] MEDS: levETIRAcetam 250 MG TAB PO SCH (08:24)
[2018-12-15] MEDS ORDERED: ASPIRIN 81 MG ECTAB PO SCH (09:00)
[2018-12-15] MEDS ORDERED: CLOPIDOGREL BISULFATE 75 MG TAB PO SCH (09:00)
[2018-12-15] MEDS ORDERED: METOPROLOL SUCC 50MG EXT REL TAB PO SCH (09:00)
[2018-12-15] MEDS ORDERED: allopurinoL 300 MG TAB PO SCH (09:00)
[2018-12-15] MEDS ORDERED: lisinopriL 20 MG TAB PO SCH (09:00)
[2018-12-15 10:11] LABS: iSTAT Arterial Blood Gas HCO3 25 meg/L (19-24); iSTAT Arterial Blood Gas pCO2 38 mmHg (35-46); iSTAT Arterial Blood Gas pH 7.42 (7.35-7.45); iSTAT Arterial Blood Gas pO2 61 mmHg (80-95); iSTAT Carbon Dioxide 26 mEq/l (24-31)
--- NOTE | 2018-12-28 16:55 | Discharge Summary ---
Date of Service December 15, 2018 Admission HPI Per Admitting Provider 53-year-old man with a history of seizure disorder, hypertension, prior alcohol abuse with cerebellar degeneration, ataxia and cirrhosis, aortic root dilation and longstanding chronic venous insufficiency and varicose veins status post bilateral GSV ablations referred for cardiac catheterization in the setting of progressive exertional dyspnea. Able to go up one flight of steps before having to stop due to shortness of breath. This is sometimes associated with diffuse chest discomfort. Discharge Data Consultations 12/14/18 13:42 Consult Cardiac Rehabilitation Routine Procedures Performed Operation Date: 12/14/18 09:30 Actual Procedures s Cineradiography w/Routine Exam - Hero Reich MD s Drug Eluting Stent SGl Vessel - Hero Reich MD p Cath, Right and Left Heart - Hero Reich MD s Fraction Flow [place] SGL Ves - Hero Reich MD Hospital Course (1) Coronary artery disease: Underwent cardiac catheterization via right radial artery and right antecubital vein. On to have normal left and right-sided filling pressures, normal pulmonary artery pressures and iliac/IVC venogram negative for venous obstruction. Coronary angiography revealed a moderate to severe mid LAD stenosis which was positive by FFR (0.71). Underwent PCI with single drug- eluting stent (3.0 x 34 mL Derek, postdilated with 3.5 NC) to mid LAD. Procedure complicated. Admitted for observation post procedure. Telemetry unremarkable. No apparent access site comp occasions. Post procedure labs stable. Discharged to home on DAPT with aspirin, clopidogrel. We will follow-up in 2 to 3 weeks. Suspect lower extremity swelling secondary to venous insufficiency, lymphedema. Continue compressive therapy, lymphedema PT and repeat venous reflux ultrasound pending.
== END 2018-12-15 09:59 | disposition home or self-care (01) ==
LOC: CC 08:08 → 2S 08:08
DX: F10.10 Alcohol abuse, uncomplicated; R07.89 Other chest pain; Z87.891 Personal history of nicotine dependence; Z79.899 Other long term (current) drug therapy; I87.2 Venous insufficiency (chronic) (peripheral); I77.819 Aortic ectasia, unspecified site; K74.60 Unspecified cirrhosis of liver

== ENCOUNTER 2020-02-10 08:45 | Inpatient (IN) ==
[2020-02-10] MEDS ORDERED: SODIUM CHLORIDE 0.9% 1000ML 1,000 ML IV SCH (09:15)
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
[2020-02-10 10:12] LABS: Albumin Level 2.8 gm/dl (3.4-5.0); BUN Creatinine Ratio 8.9 (10-20); Calcium 8.9 mg/dl (8.5-10.1); Creatinine Clr Calc Pharmacy 95.3 ml/min; Est GFR (African American) 90.9; Est GFR (Non-African American) 78.4; Potassium 3.5 mmol/L (3.5-5.1)
[2020-02-10 10:15] LABS: Eosinophils # (auto) 0.01 K/uL (0-0.5); Eosinophils % (auto) 0.3 %; Hematocrit (blood only) 33.4 % (42-52); Immature Granulocytes # (auto) 0.01 K/uL (0.00-0.02); Immature Granulocytes % (auto) 0.3 %; Lymphocytes # (auto) 0.23 K/uL (1.2-3.4); Lymphocytes % (auto) 6.1 %; Mean Corpuscular Hemoglobin 34.1 pg (25-34); Mean Corpuscular Hgb Conc 32.9 g/dL (32-36); Mean Corpuscular Volume 103.4 fL (80-100); Mean Platelet Volume 12.6 fL (7.4-10.4); Monocytes # (auto) 0.36 K/uL (0.11-0.59); Monocytes % (auto) 9.6 %; Neutrophils # (auto) 3.14 K/uL (1.4-6.5); Neutrophils % (auto) 83.7 %; Platelet Count 32 K/uL (130-400); Platelet Estimate SIGNIFIC DECREASED (Normal); RDW Coefficient of Variation 14.1 % (11.5-14.5); RDW Standard Deviation 53.3 fL (36.4-46.3); Red Blood Count 3.23 M/uL (4.7-6.1); Target Cells 1+; White Blood Count 3.75 K/uL (4.8-10.8)
[2020-02-10 10:23] LABS: Albumin Globulin Ratio 0.5 (0.9-2); Bilirubin,Total 2.9 mg/dl (0.2-1); Globulin 5.5 gm/dl (2.5-4.0); Thyroid Stimulating Hormone 3.31 uIu/ml (0.300-4.500); Total Protein 8.3 gm/dl (6.4-8.2); Troponin I 0.017 ng/ml (0-0.045)
--- NOTE | 2020-02-10 10:34 | CT Scan Report ---
CT head/brain wo con CLINICAL HISTORY: 55 years-old Male with fall, sz hx head injury in past. Acute head injury status p ost fall with seizure. TECHNIQUE: Multiple axial CT images of the head were obtained without contrast. A dose lowering tech nique was utilized adhering to the principles of ALARA. CT DOSE: 687.98 mGy.cm COMPARISON: Head CT 07/22/2019 FINDINGS: No acute intracranial hemorrhage, midline shift, intracranial mass, hydrocephalus, territorial ischem ia or abnormal extra-axial collection. There are mild age-related involutional changes. No acute calvarial fracture. Chronic defect of the right frontal bone near the vertex. The paranasal sinuses, mastoid air cells, and middle ear cavities are clear. IMPRESSION: No acute intracranial abnormality. ACT 112: Negative or not required by law. The above report was generated using voice recognition software. It may contain grammatical, syntax o r spelling errors. Electronically signed by: Barrera Harvey M.D. 02/10/2020 10:33 AM
--- NOTE | 2020-02-10 11:01 | XRay Report ---
XR chest 1V portable HISTORY: 55 years-old Male weakness acute weakness COMPARISON: Chest radiographs 07/10/2018 TECHNIQUE: Portable AP view of the chest FINDINGS: Cardiomediastinal and hilar silhouettes are unchanged. Calcified granuloma of the left upper lung. No pneumothorax, pleural effusion, airspace consolidation or overt pulmonary edema. Healed remote fract ure deformity of the right clavicle. Degenerative changes of the shoulders and spine. IMPRESSION: No acute process. ACT 112: Negative or not required by law. The above report was generated using voice recognition software. It may contain grammatical, syntax o r spelling errors. Electronically signed by: Barrera Harvey M.D. 02/10/2020 11:00 AM
[2020-02-10] MEDS ORDERED: ACETAMINOPHEN 325 MG TAB PO STA (12:05)
--- NOTE | 2020-02-10 16:29 | History & Physical Report ---
Date of Service February 10, 2020 Assessment & Plan (1) Seizure: Uvaldo Mendez is a 55-year-old male with a past medical history of coronary artery disease with LAD stenting 11/2018, hypertension, seizure disorder 2/2 TBI in 1981, alcohol abuse, and ambulatory dysfunction who presents with 2 seizures and increasing falls in the previous weeks. Seizure 2/2 seizure disorder with recent cessation of antiepileptic versus alcohol withdrawal Patient with a history of alcohol abuse, ataxia with last drink 4 to 5 days ago. See below. 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 Previously on Lamictal 250 mg every morning, 400 mg every afternoon and Keppra to 50 mg daily Stopped Keppra 6 months ago, patient is a somewhat poor historian and does not remember why this was stopped or she was advised to stop taking it by physician 2 seizure episodes with tongue biting, tonic-clonic and observed his in the last 24 hours Admit to PCU, seizure monitoring Ativan 2 mg IV push on-call for seizure, alcohol withdrawal management as below Neurology consulted Troponin negative TSH normal Alcohol abuse concerns for active withdrawal Patient tremulous, mildly diaphoretic, with 2 seizures in the past 24 hours Patient endorses daily alcohol intake, at least 10 beers per day but indicates much more and is not observed during the day. Last drink Friday evening 4.5 days ago. Denies history of withdrawal symptoms, but endorses tremor and seizure history as above High risk, admit on AWSS scoring with active Librium protocol Patient with ataxia, without confabulation. ElevMCV. High-dose thiamine regimen (500 3 times daily x1 day, 250 IV x1 day, 100 mg daily) Folic acid daily B12, folate pending Pancytopenia with severe thrombocytopenia WBC 3.75, hemoglobin 11, platelet 32 Patient with history of mild pancytopenia, platelets lower than normal MCV 103 Suspect combination of nutritional deficiency with direct alcohol toxicity Patient also febrile, [place]. Lyme and anaplasmosis pending Peripheral smear pending CMP daily Ambulatory dysfunction Ataxia with superimposed severe deconditioning Multiple falls, up to 11/day. Multiple bruises on patient's torso and legs from falls PT/OT pending. Alcohol treatment as above, patient will likely need rehab services CThead shows no acute intracranial findings or bleed CAD with PCI Patient with PCI to LAD 11/2018 Continue lisinopril 20 mg, metoprolol 100 mg every morning Patient reports he was stopped on a blood thinner due to his falls but cannot remember why he was on it or what it was for but that he was started on it by his picking tech around his heart attack and was stopped from taking it by Dr. Reich. Cardiology notes reviewed, patient was moved from dual aspirin platelet therapy to aspirin monotherapy Aspirin held for severe thrombocytopenia DVT prophylaxis: SCDs Diet: Heart healthy Disposition: PCU CODE STATUS: Full code (2) Fever: (3) SOB (shortness of breath) on exertion: (4) Coronary artery disease: (5) Cirrhosis: (6) Chronic venous insufficiency: (7) Seizure disorder: (8) Portal hypertension: (9) Hypertension: (10) Heavy alcohol use: (11) Anemia: (12) Ataxia: History of Present Illness Chief Complaint: Seizure Primary Care Provider: Giana Wan MD Uvaldo Mendez is a 55-year-old male with a past medical history of coronary artery disease with LAD stenting 11/2018, hypertension, seizure disorder 2/2 TBI in 1981, alcohol abuse, and ambulatory dysfunction who presents with 2 seizures and increasing falls in the previous weeks. Uvaldo is seen at the bedside with his who provides collateral history. He reports that he has had several falls, up to 11/day, over the last few weeks with worsening tremor balance and strength. He has a fairly poor historian, and is unable to recall the names of his medications or why they were changed. His reports that last night he had a seizure episode with tonic/clonic shaking which lasted 1 to 2 minutes. He had another seizure episode this morning which lasted 1 to 2 minutes and which was associated with tongue biting and bleeding. Mr. Mendez does not recall these episodes. He reports that he has not had a seizure in 2 to 3 years, and has seen neurology and has been on seizure medication for a long time after he sustained a traumatic brain injury in 1981 with subsequent seizure. He was previously on Lamictal 300 mg a.m., 400 mg p.m. and Keppra 250 mg daily and had not had a seizure in many years, stopped the Keppra 6 months ago but is unsure why. Patient also reports a very high alcohol intake. He reports that he normally drinks nearly every day, at least 10 beers in a sitting. His who is present at bedside reports she is unsure of how much he drinks because she works and he is at home most of the day, but indicates that patient has a very high alcohol intake. His last drink was Friday, 4-5 days ago. He reports that he has severe worsening tremors at baseline, which seem worse in the last week. Denies visual and auditory hallucinations, endorses that he has a seizure history as above but that he has not noted any effect of alcohol on this. He has had a swollen belly which is nontender which has been progressive over several months per his . She notes that he has lost a lot of muscle mass and does not eat much, but drinks often. Patient reports in the last week he has felt feverish, had night sweats, poor sleep, decreased appetite. No rash or tick bites, notes he lives at his home which is in a wooded area and has pets. He has had tick bites in the past. He has had an intermittent headache in the last week. Review of his chart shows a history of alcoholic cerebellar degeneration and ataxia, patient reports he does not know what these terms are and it had not been mentioned to him previously. He has a history of alcoholic cirrhosis with chronic elevations in his alk phos/transaminases. He reports his belly is not tender, bowel movements have been fairly loose. Medical history: Reviewed Medications: Reviewed, patient is a poor historian but otherwise as above Allergies: Patient denies medication allergies Social: Alcohol as above. Denies tobacco use, recreational drug use. Lives at home with his . CODE STATUS: Full code Family history: Noncontributory Allergies Allergy/AdvReac Type Severity Reaction Status Date / Time No Known Allergies Allergy Unverified 02/10/20 10:12 Home Medications Medication Instructions Recorded Confirmed Type lisinopril 20 mg tablet 20 mg PO QAM tab 02/12/19 02/10/20 History allopurinol 300 mg tablet 300 mg PO QAM #90 tab 01/18/20 02/10/20 Rx metoprolol succinate 100 mg 100 mg PO QAM #90 tab 01/31/20 02/10/20 Rx tablet,extended release 24 hr aspirin 81 mg PO QAM 02/10/20 02/10/20 History lamotrigine [Lamictal] 0 mg PO BID 02/10/20 02/10/20 History Past Med/Surg History Medical History (Updated 02/14/20 @ 22:18 by Gigi Brown DO) Anemia GERD (gastroesophageal reflux disease) no meds Gout Hypertension Kidney stones Myocardial Infarction 2013--PT STATES IT WAS MILD Osteoarthritis Seizure "BLACKOUT" 2015?-F/U Dr. Cade LAST EVENT 5 YEARS AGO ABOUT Situational depression Tremor BILAT HANDS-NO DX PER PT Surgical History History of anesthesia reaction "was out strong enough for scope to go down, still had gag reflux" History of cystoscopy History of esophagogastroduodenoscopy (EGD) X 2 History of fracture of skull REPAIR SKULL-NO PLATE History of umbilical hernia repair History of varicose vein ligation and stripping BILAT Family History Father Family history of diabetes mellitus Cardiac disorder Mother Family history of diabetes mellitus Gout Sister Family history of diabetes mellitus Other No family history of adverse response to anesthesia Social History Smoking Status: Former smoker Tobacco Type: Cigarettes Second Hand Exposure: No; Hx Alcohol Use: Yes Alcohol type: beer and hard liquor Hx Substance Use: No Preferred Language: Wolof Communication Ability: Effective [employer] 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 Appears tremulous. HEENT: Atraumatic, normocephalic. See below. Pulm: CTAB A&P. -wheezes, -rales, -rhonchi. Symmetrical chest rise. No increase work of breathing. No respiratory distress. Cardiac: RRR, -mrg. Radial pulses intact and symmetrical. Abdominal: distended, ascites is present. Nontender. CRANIAL NERVES: II: Pupils equal and reactive, no relative afferent pupillary defect, no VF cuts III, IV, : EOM intact, no gaze preference or deviation, trace lateral nystagmus which extinguishes bilaterally V: normal sensation in V1, V2, and V3 segments bilaterally VII: no asymmetry, no nasolabial fold flattening VIII: normal hearing to speech IX, X: normal palatal elevation, no uvular deviation XI: 5/5 head turn and 5/5 shoulder shrug bilaterally XII: midline tongue protrusion MOTOR: Resting upper and lower extremity tremor, 6- 8 Hz approximate. RUE: 5/5 Shoulder internal rotation, external rotation, flexion, extension, abduction, adduction 5/5 Elbow flexion/extension, wrist flexion/extension 5/5 live in housekeeper nanny strength, finger flexion/extension, interosseus LUE: 5/5 Shoulder internal rotation, external rotation, flexion, extension, abduction, adduction 5/5 Elbow flexion/extension, wrist flexion/extension 5/5 live in housekeeper nanny strength, finger flexion/extension, interosseus RLE: 4/5 to hip flexion/extension, knee flexion/extension, ankle dorsiflexion/plantarflexion LLE: 4/5 to hip flexion/extension, knee flexion/extension, ankle dorsiflexion/plantarflexion SENSORY: Normal to touch in upper and lower extremities without deficit or asymmetry COORD: [id number] impaired bilaterally by exaggerated tremor. [id number] limited by weakness and shaking tremor. Results & Data Results & Data ([facility]) Vital Signs (Past 12 Hours) Vital Signs Temp Pulse Pulse Resp BP BP Pulse Ox 02/10/20 14:27 102 H 22 131/84 02/10/20 12:46 78 20 95 02/10/20 12:45 75 17 124/83 94 02/10/20 12:30 76 25 H 135/78 95 02/10/20 12:16 75 28 H 95 02/10/20 12:15 79 22 160/90 H 96 02/10/20 12:00 70 20 140/84 95 02/10/20 11:45 74 30 H 142/74 H 96 02/10/20 11:31 73 23 96 02/10/20 11:30 75 19 155/79 H 95 02/10/20 11:16 74 24 02/10/20 11:15 75 19 142/88 H 96 02/10/20 11:00 85 21 138/70 02/10/20 10:45 75 20 157/81 H 02/10/20 10:30 77 21 149/83 H 96 02/10/20 10:16 74 25 H 130/92 97 02/10/20 10:15 73 26 H 97 02/10/20 10:10 77 22 02/10/20 09:45 83 19 120/68 96 02/10/20 09:32 73 18 96 02/10/20 09:31 78 18 129/75 97 02/10/20 09:30 79 26 H 82 L 02/10/20 09:16 72 20 95 02/10/20 09:15 75 20 143/76 H 94 02/10/20 09:05 79 16 134/80 96 02/10/20 09:00 83 21 97 02/10/20 08:59 81 24 96 02/10/20 08:49 88 18 133/74 96 02/10/20 08:45 38.1 C H 80 80 20 133/74 133/74 95 Supervising Physician Co-Signing Physician Notes Attending addendum: I have physically seen this patient, have supervised the medical residents activities, and agree with the H&P unless as otherwise noted. Assessment and Plan: Seizure activity/seizure disorder/alcohol withdrawal/recent cessation of seizure meds/history of TBI- The patient will be admitted to telemetry for serial cardiac enzymes, serial EKG's, cardiac rhythm monitoring and a 2-D echocardiogram with Dopplers. Patient reportedly stopped Keppra 6 months ago on his own, but he is a poor historian so information is not reliable. Order MRI brain and EEG. Placed on Keppra IV now, and Ativan IV as needed breakthrough seizures. Alcohol abuse/alcohol withdrawal- AWSS protocol. Folic acid 1 mg p.o. daily Thiamine 100 mg p.o. daily Nephrocaps 1 p.o. daily Pancytopenia/worsening thrombocytopenia- Platelets of 30 to significantly lower than previous Order peripheral smear Lyme and anaplasmosis titers pending. Consult hematology/oncology Remaining orders and notations as noted Resident Activity Tracking Resident Involvement: Resident Care Provided Care Provided: Adult Hospital Medicine (1) Fever Fever type: unspecified Qualified Code(s): R50.9 - Fever, unspecified
[2020-02-10] MEDS ORDERED: cefTRIAXone SODIUM 2000MG/70ML D5W IV ONE (19:30)
[2020-02-10] MEDS: cefTRIAXone SODIUM 2,000 MG in DEXTROSE 5% 50 ML IV SCH (19:34)
[2020-02-10 20:20] LABS: Appearance Urine Clear (Clear); Bacteria Urine Automated Negative (Negative); Blood Urine Negative (Negative); Color Urine Orange; Glucose Urine UA Negative (Negative); Ketones Urine Trace (Negative); Leukocyte Esterase Urine Trace (Negative); Nitrite Urine Positive (Negative); Protein Urine Trace (Negative); RBC Urine Automated 0-4 /hpf (0-4); Specific Gravity Urine 1.021 (1.000-1.030); Urobilinogen Urine Negative (Negative); pH Urine 5.5 (4.5-7.5)
[2020-02-10 20:32] LABS: Bilirubin Urine 1+ (Negative)
[2020-02-10 20:33] LABS: Ictotest Urine Positive (Negative)
[2020-02-10] MEDS ORDERED: chlordiazePOXIDE ALCOHOL WITHDRAWL 25MG PO STA (20:34)
[2020-02-10] MEDS ORDERED: GABAPENTIN 800MG ALCOHOL WITHDRAWAL LOAD PO STA (20:34)
[2020-02-10] MEDS ORDERED: ATIVAN IV ALCOHOL WITHDRAWL IV PRN (20:34)
[2020-02-10] MEDS ORDERED: THIAMINE HCL 500 MG in SYRINGE 9 ML IV STA (20:34)
[2020-02-10] MEDS ORDERED: MULTI-VITAMIN INFUSION 10 ML, THIAMINE HCL 100 MG, FOLIC ACID 1 MG in SODIUM CHLORIDE 0... IV ONE (21:00)
[2020-02-10] MEDS ORDERED: lamoTRIgine 100 MG TAB PO SCH (21:00)
[2020-02-10] MEDS ORDERED: THIAMINE HCL 500 MG in 0.9 % SODIUM CHLORIDE 100 ML IV ONE (21:15)
[2020-02-10] MEDS ORDERED: GABAPENTIN 400 MG CAP PO ONE (21:30)
[2020-02-10 21:35] LABS: INR 1.6 (0.9-1.1); Partial Thromboplastin Ratio 1.2; Partial Thromboplastin Time 33.3 Seconds (21.0-31.0); Prothrombin Time 16.5 Seconds (9.0-12.0)
[2020-02-10] MEDS: FOLIC ACID 1 MG TAB PO SCH (21:36)
[2020-02-10] MEDS: LACTATED RINGER'S 1,000 ML IV SCH (21:40)
[2020-02-10 22:03] LABS: Lyme Ab IgG w/WB Rflx Negative (Negative); Lyme Ab IgM w/WB Rflx Negative (Negative)
[2020-02-10] MEDS: LORazepam 2 MG/4 ML VIAL IV PRN (22:47)
[2020-02-11] MEDS: LORazepam 2 MG/4 ML VIAL IV PRN ×4 (04:17→23:38)
--- NOTE | 2020-02-11 05:35 | Electrocardiogram Report ---
Test Reason : Blood Pressure : / mmHG Vent. Rate : 078 BPM Atrial Rate : 078 BPM P-R Int : 156 ms QRS Dur : 082 ms QT Int : 410 ms P-R-T Axes : 042 -24 019 degrees QTc Int : 467 ms Normal sinus rhythm Nonspecific ST abnormality Abnormal ECG When compared with ECG of 22-JUL-2019 00:57, No significant change was found Confirmed by Savage Toure ([id number]) on 02/11/2020 5:35:43 AM Referred By: ED Confirmed By:Savage Toure
[2020-02-11] MEDS: GABAPENTIN 400 MG CAP PO SCH ×3 (06:20→22:27)
[2020-02-11] MEDS: LACTATED RINGER'S 1,000 ML IV SCH ×2 (08:08→18:01)
[2020-02-11] MEDS: allopurinoL 300 MG TAB PO SCH (08:08)
[2020-02-11] MEDS: METOPROLOL SUCC 50MG EXT REL TAB PO SCH (08:08)
[2020-02-11] MEDS: FOLIC ACID 1 MG TAB PO SCH (08:09)
[2020-02-11] MEDS: THIAMINE HCL 500 MG in 0.9 % SODIUM CHLORIDE 100 ML IV SCH ×3 (08:25→21:00)
[2020-02-11] MEDS ORDERED: THIAMINE HCL 500 MG in SYRINGE 9 ML IV SCH (09:00)
[2020-02-11] MEDS ORDERED: lamoTRIgine 100 MG TAB PO SCH (09:00)
--- NOTE | 2020-02-11 12:35 | Neurology Consultation ---
Date of Consultation February 11, 2020 Assessment & Plan (1) Seizure: Uvaldo Mendez is a 55 yo man w/ PMH of HTN, tremor, arthritis, h/o kidney stones, h/o CO, GERD, gout, anemia, depression, h/o alcohol abuse c/b ataxia/neuropathy/cirrhosis/portal HTN and h/o seizure who p/t [facility] with 2 arlin kthrough seizures and increased difficulty ambulating in the setting of a febrile illness. # Seizures in the setting of fever: could be breakthrough seizures in the setting of illness, cannot r/o TUBE COVERER infection such as meningitis. Unable to obtain LP at this time given severe thrombocytopenia. - would continue empiric treatment for possible TUBE COVERER infection with ceftriaxone/v anc - agree with WAS scale as this could be all related to h/o significant alcohol abuse and DTs - check lamictal level - given his severe hepatic impairment, he should not be on a dose of lamictal hi gher than 200mg total per day. Would decrease to either 100mg bid or 200mg XR - continue thiamine/folate/MV - routine EEG. Would benefit from EMU referral in the future as it is unclear if he actually has seizures or if they are alcohol withdrawal related - low threshold to have repeat MRI brain Thank you this interesting consult. Plan of care discussed with primary team. Please contact with questions. (2) Fever: (3) Heavy alcohol use: (4) Alcoholic cerebellar degeneration: History of Present Illness Attending Physician: Javier Cat History of Present Illness Uvaldo Mendez is a 55 yo man w/ PMH of HTN, tremor, arthritis, h/o kidney stones, h/o CO, GERD, gout, anemia, depression, h/o alcohol abuse c/b ataxia/neuropathy/cirrhosis/portal HTN and h/o seizure who p/t [facility] with 2 breakthrough seizures and increased difficulty ambulating in the setting of a febrile illness. In the ED, patient febrile with temperature 38.1 C, BP 133/74, heart rate 80, respiratory rate 20, satting 95% room air. Labs notable for WBC 3.75, hemoglobin 11.0 with MCV 103.4, platelets extremely low at 32, sodium 137, potassium 3.5, normal gap, creatinine 1.05, glucose 85, AST elevated 121 with normal ALT, elevated alkaline phosphatase 275, CK 117, troponin within normal, albumin low at 2.8, TSH within normal, INR 1.6, B12 1181, UA + for pyuria and nitrites but no bacteria. HCV negative, COVID negative, Lyme negative, anaplasmosis smear negative. Blood cultures pending. Imaging independently reviewed. CT head shows no hemorrhage or hypodensity, chronic bone abnormality in the right frontal lobe, and cerebellar atrophy. CXR no pneumonia. On examination he reports that he no longer drinks but that he had alcohol yesterday evening. He notes that he has a h/o seizures that he takes lamictal for. Does not remember events that brought him into the hospital. Current AEDs: none Prior AEDs: lamotrigine 300mg bid, keppra 250mg bid Of note, on review of his record, the last time he saw [facility] neurology was Dr Cade in June 2018 at which point he was continued on lamictal and keppra at the above doses. Last EEG in our system was in 01/2013 that showed intermittent sharp waves in C3/P3. Allergies Allergy/AdvReac Type Severity Reaction Status Date / Time No Known Allergies Allergy Unverified 02/10/20 10:12 Home Medications Medication Instructions Recorded Confirmed Type lisinopril 20 mg tablet 20 mg PO QAM tab 02/12/19 02/10/20 History allopurinol 300 mg tablet 300 mg PO QAM #90 tab 01/18/20 02/10/20 Rx metoprolol succinate 100 mg 100 mg PO QAM #90 tab 01/31/20 02/10/20 Rx tablet,extended release 24 hr aspirin 81 mg PO QAM 02/10/20 02/10/20 History lamotrigine [Lamictal] 0 mg PO BID 02/10/20 02/10/20 History Patient History Medical History Anemia GERD (gastroesophageal reflux disease) no meds Gout Hypertension Kidney stones Myocardial Infarction 2013--PT STATES IT WAS MILD Osteoarthritis Seizure "BLACKOUT" 2015?-F/U Dr. Cade LAST EVENT 5 YEARS AGO ABOUT Situational depression Tremor BILAT HANDS-NO DX PER PT Surgical History History of anesthesia reaction "was out strong enough for scope to go down, still had gag reflux" History of cystoscopy History of esophagogastroduodenoscopy (EGD) X 2 History of fracture of skull REPAIR SKULL-NO PLATE History of umbilical hernia repair History of varicose vein ligation and stripping BILAT Family History Father Family history of diabetes mellitus Cardiac disorder Mother Family history of diabetes mellitus Gout Sister Family history of diabetes mellitus Other No family history of adverse response to anesthesia Social History Smoking Status: Former smoker Tobacco Type: Cigarettes Second Hand Exposure: No; Hx Alcohol Use: Yes Alcohol type: beer and hard liquor Hx Substance Use: No Preferred Language: Indonesian Communication Ability: Effective Office Technician Required: No Beliefs That Will Affect Care: None Current Living Situation: Spouse Other Information That Helps Us Care for You: No Feels Safe at Home: Yes Safety Concerns: Feels Safe At This Time Assistive Devices: Cane Assistive Devices Comment: x 2 Review of Systems Review of Systems: 14 point review of systems completed and negative except as in HPI. Exam (Neuro) Physical Exam: General Exam: GEN: NAD, sitting in bed. HEENT: No conjunctival injection, no rhinorrhea. CV: RRR, no peripheral edema PULM: Nonlabored respirations on room air. Neuro Exam: MS: Awake and Alert. Oriented to person, not place or date. Speech fluent and appropriate + mild dysarthria, no paraphasic errors. Language intact including naming, comprehension, repetition. Cognition and memory grossly impaired. Inattentive. No clear neglect. CN: Visual callejas full. No extinction to double simultaneous stimuli. Unable to visualize fundi on fundoscopic exam. PERRLA OU. EOMI without nystagmus. Facial sensation intact to LT. Facial muscles full and symmetric. Hearing intact to conversation. Uvula midline with symmetric palatal elevation. Shoulder shrug normal. Tongue midline. MOTOR: Normal bulk and tone. No pronator drift. BUE strength 5/5 at deltoids, biceps, triceps, wrist flexors and extensors, and hand grasp bilaterally. BLE strength 5/5 at iliopsoas, hamstrings, quadriceps, tibialis anterior, and gastrocnemius bilaterally. REFLEXES: 1+ at biceps, triceps, brachioradialis, 1+ patella and absent Achilles bilaterally. Flexor plantar responses bilaterally. SENSORY: Intact to LT without extinction to double simultaneous stimuli. Vibration intact throughout. COORDINATION: Mild dysmetria or ataxia on [id number] bilaterally. Normal Luciano bilaterally. Mild intention and rest tremor. GAIT: deferred given fall risk/physical status Results & Data ([facility]) Vital Signs (Past 12 Hours) Vital Signs Temp Pulse Resp BP Pulse Ox 02/11/20 12:04 36.9 C 76 18 153/72 H 99 02/11/20 08:27 36.9 C 76 18 112/54 L 95 02/11/20 05:23 88 18 145/85 H 95 02/11/20 04:17 36.9 C 86 22 141/80 H 93 PG Care Time/CCT Total # of Minutes Spent Total Time Spent with Patient: Total time spent is greater than 50% in coordination of care (as documented) at patient's floor/unit and/or counseling patient: Coding Level of Care Code 35879 Inpt Consult Level 5 Diagnoses Seizure R56.9 Fever R50.9 Fever type: unspecified Heavy alcohol use Z78.9 Alcoholic cerebellar degeneration F10.20; G31.2 (1) Fever Fever type: unspecified Qualified Code(s): R50.9 - Fever, unspecified
[2020-02-11] MEDS: LORazepam 3 MG/6 ML VIAL IV PRN ×2 (18:35→19:59)
[2020-02-11] MEDS: cefTRIAXone SODIUM 2,000 MG in DEXTROSE 5% 50 ML IV SCH (19:30)
[2020-02-11] MEDS: lamoTRIgine 100 MG TAB PO SCH (22:26)
[2020-02-12] MEDS: LORazepam 2 MG/4 ML VIAL IV PRN ×6 (01:35→22:47)
[2020-02-12] MEDS: LACTATED RINGER'S 1,000 ML IV SCH ×3 (03:38→22:48)
[2020-02-12] MEDS: GABAPENTIN 400 MG CAP PO SCH ×3 (06:20→23:31)
[2020-02-12] MEDS ORDERED: THIAMINE HCL IV SCH (09:00)
[2020-02-12] MEDS ORDERED: THIAMINE HCL 250 MG in SODIUM CHLORIDE 0.9% 50 ML IV SCH (09:00)
[2020-02-12] MEDS: LORazepam 3 MG/6 ML VIAL IV PRN (10:23)
--- NOTE | 2020-02-12 10:58 | Hospitalist Progress Note ---
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 Seizure 2/2 seizure disorder with recent cessation of antiepileptic versus alcohol withdrawal Patient with a history of alcohol abuse, ataxia with last drink 4 to 5 days ago. See below. 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 Previously on Lamictal 250 mg every morning, 400 mg every afternoon and Keppra to 50 mg daily Stopped Keppra 6 months ago, patient is a somewhat poor historian and does not remember why this was stopped or she was advised to stop taking it by physician 2 seizure episodes with tongue biting, tonic-clonic and observed his in the last 24 hours Admit to PCU, seizure monitoring -Patient is confused. -Likely going through withdrawal. Appreciate neuro input. alcohol withdrawal management as below Neurology consulted Troponin negative TSH normal Alcohol abuse concerns for active withdrawal Patient tremulous, mildly diaphoretic, with 2 seizures in the past 24 hours -Likely withdrawal seizures. Patient endorses daily alcohol intake, at least 10 beers per day but indicates much more and is not observed during the day. Last drink Friday evening 4.5 days ago. Denies history of withdrawal symptoms, but endorses tremor and seizure history as above High risk, admit on AWSS scoring with active Librium protocol Patient with ataxia, without confabulation. Elev MCV. High-dose thiamine regimen (500 3 times daily x1 day, 250 IV x1 day, 100 mg daily) Folic acid daily Pancytopenia with severe thrombocytopenia WBC 3.75, hemoglobin 11, platelet 32 Patient with history of mild pancytopenia, platelets lower than normal MCV 103 Suspect combination of nutritional deficiency with direct alcohol toxicity Patient also febrile, [place]. Peripheral smea CMP daily Ambulatory dysfunction Ataxia with superimposed severe deconditioning Multiple falls, up to 11/day. Multiple bruises on patient's torso and legs from falls PT/OT pending. Alcohol treatment as above, patient will likely need rehab services CThead shows no acute intracranial findings or bleed CAD with PCI Patient with PCI to LAD 11/2018 Continue lisinopril 20 mg, metoprolol 100 mg every morning Patient reports he was stopped on a blood thinner due to his falls but cannot remember why he was on it or what it was for but that he was started on it by his director of customer service around his heart attack and was stopped from taking it by Dr. Reich. Cardiology notes reviewed, patient was moved from dual aspirin platelet therapy to aspirin monotherapy Aspirin held for severe thrombocytopenia DVT prophylaxis: SCDs Diet: Heart healthy Disposition: PCU CODE STATUS: Full code (2) Fever: (3) Right knee DJD: (4) Coronary artery disease: (5) Portal hypertension: Patient has signs of portal hypertension, given colateral veins. Patient likely will require transplant. However he wont be acandiate if he continues to drink. (6) Peripheral neuropathy: (7) Hypertension: (8) Heavy alcohol use: (9) Alcoholic cerebellar degeneration: (10) Alcoholic cirrhosis: Admission and Anticipated Discharge Date Admission Date: February 10, 2020 Subjective 55 yo male is a poor historian, continues to be confused. Review of Systems Review of Systems: All systems reviewed & are unremarkable except as noted in HPI & below Physical Exam Physical Exam: General: Somnolent HEENT: Atraumatic, normocephalic. Pulm: CTAB A&P Symmetrical chest rise. No increase work of breathing. No respiratory distress. Cardiac: RRR, -mrg. Radial pulses intact and symmetrical. Abdominal: distended, ascites is likely present. Nontender. collateral veins noted. extremities: no edema Neuro: CN II-XII intacted psych: disoriented Results & Data Results & Data ([facility]) Vital Signs (Past 12 Hours) Vital Signs Temp Pulse Pulse Pulse Resp BP BP 02/12/20 08:00 98 H 02/12/20 03:59 37.1 C 89 19 124/80 02/12/20 02:56 37.4 C 86 19 151/85 H 02/11/20 23:17 92 H 02/11/20 23:15 94 H 02/11/20 23:08 37.5 C 89 19 145/85 H Pulse Ox Pulse Ox 02/12/20 08:00 02/12/20 03:59 97 02/12/20 02:56 97 02/11/20 23:17 97 02/11/20 23:15 02/11/20 23:08 97 PG Care Time/CCT Total # of Minutes Spent Total Time Spent with Patient: Total time spent is greater than 50% in coordination of care (as documented) at patient's floor/unit and/or counseling patient: Coding Level of Care Code 98444 Subseq Hosp Care Lvl 3 Diagnoses Seizure R56.9 Fever R50.9 Fever type: unspecified Right knee DJD M17.11 Coronary artery disease I25.10 Portal hypertension K76.6 Peripheral neuropathy G62.9 Hypertension I10 Heavy alcohol use Z78.9 Alcoholic cerebellar degeneration F10.20; G31.2 Alcoholic cirrhosis K70.30 Time Spent (min) 35 (1) Fever Fever type: unspecified Qualified Code(s): R50.9 - Fever, unspecified
[2020-02-12] MEDS: METOPROLOL SUCC 50MG EXT REL TAB PO SCH (11:47)
[2020-02-12] MEDS: FOLIC ACID 1 MG TAB PO SCH (11:47)
[2020-02-12] MEDS: lamoTRIgine 100 MG TAB PO SCH ×2 (11:47→21:10)
[2020-02-12] MEDS: allopurinoL 300 MG TAB PO SCH (11:47)
--- NOTE | 2020-02-12 22:31 | Hospitalist Progress Note ---
Date of Service February 12, 2020 Assessment & Plan (1) Seizure: Uvaldo Mendez is a 55-year-old male with a past medical history of coronary artery disease with LAD stenting 11/2018, hypertension, seizure disorder 2/2 TBI in 1981, alcohol abuse, and ambulatory dysfunction who presents with 2 s eizures and increasing falls in the previous weeks. Seizure 2/2 seizure disorder with recent cessation of antiepileptic versus alcohol withdrawal Patient with a history of alcohol abuse, ataxia with last drink 4 to 5 days ago. See below. 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 Previously on Lamictal 250 mg every morning, 400 mg every afternoon and Keppra to 50 mg daily Stopped Keppra 6 months ago, patient is a somewhat poor historian and does not remember why this was stopped or she was advised to stop taking it by physician 2 seizure episodes with tongue biting, tonic-clonic and observed his in the 24 hours prior to admission Admit to PCU, seizure monitoring -Patient has remained intermittently confused while here in the hospital. -Likely going through withdrawal. Appreciate neuro input. alcohol withdrawal management as below Neurology consulted Troponin negative TSH normal Alcohol abuse concerns for active withdrawal Patient tremulous, mildly diaphoretic, with 2 seizures in the past 24 hours -Likely withdrawal seizures, however cannot rule out other causes. -Neuro recommends lamictal, This has been started. -Patient currently is a poor historian. Patient endorsed on admission daily alcohol intake, at least 10 beers per day but indicates much more and is not observed during the day. Last drink Friday evening 4.5 days ago. Denies history of withdrawal symptoms, but endorses tremor and seizure history as above High risk, admit on AWSS scoring with active Librium protocol Patient with ataxia, without confabulation. Elev MCV. High-dose thiamine regimen (500 3 times daily x1 day, 250 IV x1 day, 100 mg daily) Folic acid daily Pancytopenia with severe thrombocytopenia WBC 3.75, hemoglobin 11, platelet 32 Patient with history of mild pancytopenia, platelets lower than normal MCV 103 Suspect combination of nutritional deficiency with direct alcohol toxicity Patient also febrile, [place] a [place]ed area. Peripheral smea CMP daily Ambulatory dysfunction Ataxia with superimposed severe deconditioning Multiple falls, up to 11/day. Multiple bruises on patient's torso and legs from falls PT/OT pending. Alcohol treatment as above, patient will likely need rehab services CThead shows no acute intracranial findings or bleed CAD with PCI Patient with PCI to LAD 11/2018 Continue lisinopril 20 mg, metoprolol 100 mg every morning Patient reports he was stopped on a blood thinner due to his falls but cannot remember why he was on it or what it was for but that he was started on it by his dictionary editor around his heart attack and was stopped from taking it by Dr. Reich. Cardiology notes reviewed, patient was moved from dual aspirin platelet therapy to aspirin monotherapy Aspirin held for severe thrombocytopenia DVT prophylaxis: SCDs Diet: Heart healthy Disposition: PCU CODE STATUS: Full code (2) Fever: (3) Right knee DJD: (4) Coronary artery disease: (5) Portal hypertension: Patient has signs of portal hypertension, given colateral veins. Patient likely will require transplant. However he wont be acandiate if he continues to drink. 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 ANNA garza is between 28-32, will recheck labs in AM. If remains elevated will place on prednisolone. Admission and Anticipated Discharge Date Admission Date: February 10, 2020 Subjective Patient remains confused, had a rough night and is now requiring a one to one. Review of Systems Review of Systems: All systems reviewed & are unremarkable except as noted in HPI & below Physical Exam Physical Exam: General: Somnolent HEENT: Atraumatic, normocephalic. Pulm: CTAB A&P Symmetrical chest rise. No increase work of breathing. No respiratory distress. Cardiac: RRR, -mrg. Radial pulses intact and symmetrical. Abdominal: distended, ascites is likely present. Nontender. collateral veins noted. extremities: no edema Neuro: CN II-XII intacted psych: disoriented Results & Data Results & Data ([facility]) Vital Signs (Past 12 Hours) Vital Signs Temp Pulse Pulse Resp BP Pulse Ox 02/12/20 16:11 96 H 02/12/20 15:17 37.3 C 92 H 28 H 166/92 H 97 PG Care Time/CCT Total # of Minutes Spent Total Time Spent with Patient: Total time spent is greater than 50% in coordination of care (as documented) at patient's floor/unit and/or counseling patient: Coding Level of Care Code 46484 Subseq Hosp Care Lvl 3 Diagnoses Seizure R56.9 Fever R50.9 Fever type: unspecified Right knee DJD M17.11 Coronary artery disease I25.10 Portal hypertension K76.6 Peripheral neuropathy G62.9 Hypertension I10 Heavy alcohol use Z78.9 Alcoholic cerebellar degeneration F10.20; G31.2 Alcoholic cirrhosis K70.30 (1) Fever Fever type: unspecified Qualified Code(s): R50.9 - Fever, unspecified
[2020-02-13] MEDS: LORazepam 2 MG/4 ML VIAL IV PRN ×5 (02:12→15:03)
[2020-02-13] MEDS: THIAMINE HCL 100 MG in SYRINGE 9 ML IV SCH (08:23)
--- NOTE | 2020-02-13 10:02 | Neurology Progress Note ---
Date of Service February 13, 2020 Assessment & Plan (1) Seizure: Uvaldo Mendez is a 55 yo man w/ PMH of HTN, tremor, arthritis, h/o kidney stones, h/o OK, GERD, gout, anemia, depression, h/o alcohol abuse c/b ataxia/neuropathy/cirrhosis/portal HTN and h/o seizure who p/t [facility] with 2 breakthrough seizures and increased difficulty ambulating in the setting of a febrile illness. # Seizures in the setting of fever: could be breakthrough seizures in the setting of illness, cannot r/o BRUSHER HAND infection such as meningitis. Unable to obtain LP at this time given severe thrombocytopenia. - would continue empiric treatment for possible BRUSHER HAND infection with ceftriaxone/vanc - agree with WAS scale as this could be all related to h/o significant alcohol abuse and DTs - check lamictal level (pending) - AEDs: continue lamictal 100mg bid - continue thiamine/folate/MV - routine EEG. Would benefit from EMU referral in the future as it is unclear if he actually has seizures or if they are alcohol withdrawal related - low threshold to have repeat MRI brain - would check ammonia level given worsening AMS (ordered), may need to start lactualose Thank you this interesting consult. Plan of care discussed with primary team. Please contact with questions. (2) Fever: (3) Heavy alcohol use: (4) Alcoholic cerebellar degeneration: Admission and Anticipated Discharge Date Admission Date: February 10, 2020 Subjective Significant issues with agitation overnight. Now requiring a one to one to continue safe care. Significantly altered this morning and barely able to stay awake. Denied any complaints. Review of Systems Review of Systems: Unobtainable due to cognitive status and Unobtainable due to reduced consciousness Results & Data ([facility]) Vital Signs (Past 12 Hours) Vital Signs Temp Pulse Pulse Resp BP Pulse Ox 02/13/20 08:08 36.8 C 92 H 22 152/82 H 94 02/12/20 23:29 88 Exam (Neuro) Physical Exam: General Exam: GEN: NAD, sitting in bed. HEENT: No conjunctival injection, no rhinorrhea. CV: RRR, no peripheral edema PULM: Nonlabored respirations on room air. Neuro Exam: MS: Drowsy, requires frequent stimulation to stay awake. Not oriented to person, place or date. Speech fluent and appropriate + mild dysarthria, no paraphasic errors. Language intact including naming, comprehension, repetition. Cognition and memory grossly impaired. Inattentive. No clear neglect. CN: Visual callejas full. No extinction to double simultaneous stimuli. Unable to visualize fundi on fundoscopic exam. PERRLA OU. EOMI without nystagmus. Facial sensation intact to LT. Facial muscles full and symmetric. Hearing intact to conversation. Uvula midline with symmetric palatal elevation. Shoulder shrug normal. Tongue midline. MOTOR: Normal bulk and tone. No pronator drift. BUE strength 5/5 at deltoids, biceps, triceps, wrist flexors and extensors, and hand grasp bilaterally. BLE strength 5/5 at iliopsoas, hamstrings, quadriceps, tibialis anterior, and gastrocnemius bilaterally. REFLEXES: 1+ at biceps, triceps, brachioradialis, 1+ patella and absent Achilles bilaterally. Flexor plantar responses bilaterally. SENSORY: Intact to LT without extinction to double simultaneous stimuli. Vibration intact throughout. COORDINATION: Mild dysmetria or ataxia on [id number] bilaterally. Normal Luciano bilaterally. Mild intention and rest tremor. GAIT: deferred given fall risk/physical status PG Care Time/CCT Total # of Minutes Spent Total Time Spent with Patient: Total time spent is greater than 50% in coordination of care (as documented) at patient's floor/unit and/or counseling patient: Coding Level of Care Code 39723 Subseq Hosp Care Lvl 3 Diagnoses Seizure R56.9 Fever R50.9 Fever type: unspecified Heavy alcohol use Z78.9 Alcoholic cerebellar degeneration F10.20; G31.2 (1) Fever Fever type: unspecified Qualified Code(s): R50.9 - Fever, unspecified
[2020-02-13 10:08] LABS: Hematocrit (blood only) 30.4 % (42-52); Hemoglobin 9.9 g/dL (14.0-18.0); Mean Corpuscular Hemoglobin 33.9 pg (25-34); Mean Corpuscular Hgb Conc 32.6 g/dL (32-36); Mean Corpuscular Volume 104.1 fL (80-100); RDW Coefficient of Variation 14.8 % (11.5-14.5); RDW Standard Deviation 55.1 fL (36.4-46.3); Red Blood Count 2.92 M/uL (4.7-6.1); White Blood Count 3.07 K/uL (4.8-10.8)
[2020-02-13 10:15] LABS: INR 1.6 (0.9-1.1); Prothrombin Time 16.4 Seconds (9.0-12.0)
[2020-02-13 10:23] LABS: Albumin Level 2.4 gm/dl (3.4-5.0); BUN Creatinine Ratio 14.1 (10-20); Calcium 8.3 mg/dl (8.5-10.1); Creatinine Clr Calc Pharmacy 141.8 ml/min; Est GFR (African American) 122.1; Est GFR (Non-African American) 105.4; Potassium 3.1 mmol/L (3.5-5.1)
[2020-02-13 10:26] LABS: Albumin Globulin Ratio 0.5 (0.9-2); Bilirubin,Total 2.8 mg/dl (0.2-1); Globulin 4.6 gm/dl (2.5-4.0)
[2020-02-13 10:33] LABS: Basophils # (auto) 0.02 K/uL (0-0.2); Basophils % (auto) 0.7 %; Eosinophils # (auto) 0.07 K/uL (0-0.5); Eosinophils % (auto) 2.3 %; Lymphocytes # (auto) 0.57 K/uL (1.2-3.4); Lymphocytes % (auto) 18.6 %; Mean Platelet Volume 10.5 fL (7.4-10.4); Monocytes # (auto) 0.42 K/uL (0.11-0.59); Monocytes % (auto) 13.7 %; Neutrophils # (auto) 1.99 K/uL (1.4-6.5); Neutrophils % (auto) 64.7 %; Platelet Count 42 K/uL (130-400)
[2020-02-13] MEDS: FOLIC ACID 1 MG TAB PO SCH (10:50)
[2020-02-13] MEDS: LACTATED RINGER'S 1,000 ML IV SCH ×2 (10:50→20:07)
[2020-02-13] MEDS: METOPROLOL SUCC 50MG EXT REL TAB PO SCH (10:50)
[2020-02-13] MEDS: allopurinoL 300 MG TAB PO SCH (10:50)
[2020-02-13] MEDS: lamoTRIgine 100 MG TAB PO SCH ×2 (10:50→20:08)
[2020-02-13] MEDS: GABAPENTIN 400 MG CAP PO SCH (13:01)
[2020-02-13] MEDS ORDERED: LACTULOSE SYRUP 30 GM/45 ML UDP PO STA (17:45)
[2020-02-13] MEDS: LORazepam 3 MG/6 ML VIAL IV PRN ×2 (18:17→22:15)
[2020-02-13] MEDS ORDERED: LORazepam 2 MG/4 ML VIAL IV STA (18:28)
[2020-02-13] MEDS: POTASSIUM CHLORIDE / WTR 10 MEQ/100 ML PLCT IV SCH ×4 (18:28→22:15)
--- NOTE | 2020-02-13 22:33 | Hospitalist Progress Note ---
Date of Service February 13, 2020 Assessment & Plan (1) Seizure: Uvaldo Mendez is a 55-year-old male with a past medical history of coronary artery disease with LAD stenting 11/2018, hypertension, seizure disorder 2/2 TBI in 1981, alcohol abuse, and ambulatory dysfunction who presents with 2 s eizures and increasing falls in the previous weeks. Seizure 2/2 seizure disorder with recent cessation of antiepileptic versus alcohol withdrawal Patient with a history of alcohol abuse, ataxia with last drink 4 to 5 days prior to admission. See below. 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 Previously on Lamictal 250 mg every morning, 400 mg every afternoon and Keppra to 50 mg daily Stopped Keppra 6 months ago, patient is a somewhat poor historian and does not remember why this was stopped or she was advised to stop taking it by physician 2 seizure episodes with tongue biting, tonic-clonic and observed his in the 24 hours prior to admission Admit to PCU, seizure monitoring. -Given normal procal, doubt meningitis as confusion can be explained by alcohol withdrawal and possible seizures. -Fever on admission, elevated heart rate can also be explained by alcohol withdrawal, which this seems to be the main culprit. -javier stop antibiotics, if any sign of infection returns, will renew. -will aggressively treat with benzo, if continues to remain agitated, may consider transfer to ICU. -updated on phone. -skilled nursing poor prognosis given continued alcohol abuse. -Patient has remained intermittently confused while here in the hospital. -Likely going through withdrawal. Appreciate neuro input. alcohol withdrawal management as below Neurology consulted Troponin negative TSH normal Alcohol abuse concerns for active withdrawal Patient tremulous, mildly diaphoretic, with 2 seizures in the past 24 hours -Likely withdrawal seizures, however cannot rule out other causes. -Neuro recommends lamictal, This has been started. -Patient currently is a poor historian. Patient endorsed on admission daily alcohol intake, at least 10 beers per day but indicates much more and is not observed during the day. Last drink Friday evening 4.5 days ago. Denies history of withdrawal symptoms, but endorses tremor and seizure history as above High risk, admit on AWSS scoring with active Librium protocol Patient with ataxia, without confabulation. Elev MCV. High-dose thiamine regimen (500 3 times daily x1 day, 250 IV x1 day, 100 mg daily) Folic acid daily Pancytopenia with severe thrombocytopenia WBC 3.75, hemoglobin 11, platelet 32 Patient with history of mild pancytopenia, platelets lower than normal MCV 103 Suspect combination of nutritional deficiency with direct alcohol toxicity Patient also febrile, [place] area. Peripheral smear CMP daily Ambulatory dysfunction Ataxia with superimposed severe deconditioning Multiple falls, up to 11/day. Multiple bruises on patient's torso and legs from falls PT/OT pending given confusion. Alcohol treatment as above, patient will likely need rehab services CThead shows no acute intracranial findings or bleed CAD with PCI Patient with PCI to LAD 11/2018 Continue lisinopril 20 mg, metoprolol 100 mg every morning Patient reports he was stopped on a blood thinner due to his falls but cannot remember why he was on it or what it was for but that he was started on it by his baker operator automatic around his heart attack and was stopped from taking it by Dr. Reich. Cardiology notes reviewed, patient was moved from dual aspirin platelet therapy to aspirin monotherapy Aspirin held for severe thrombocytopenia DVT prophylaxis: SCDs Diet: Heart healthy Disposition: PCU CODE STATUS: Full code (2) Fever: (3) Right knee DJD: (4) Coronary artery disease: (5) Portal hypertension: Patient has signs of portal hypertension, given collateral veins. Patient likely will require transplant. However he wont be a candiate if he continues to drink. 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 MADDREY socre is between 28-32. Labs are improving. will hold prednisolone for now. Admission and Anticipated Discharge Date Admission Date: February 10, 2020 Subjective Patient remains confused. Review of Systems Review of Systems: Unobtainable due to cognitive status Physical Exam Physical Exam: General: Somnolent HEENT: Atraumatic, normocephalic. Pulm: CTAB A&P Symmetrical chest rise. No increase work of breathing. No respiratory distress. Cardiac: RRR, -mrg. Radial pulses intact and symmetrical. Abdominal: distended, ascites is likely present. Nontender. collateral veins noted. extremities: no edema Neuro: CN II-XII intacted psych: disoriented Results & Data Results & Data ([facility]) Vital Signs (Past 12 Hours) Vital Signs Temp Pulse Pulse Pulse Resp BP BP 02/13/20 19:37 37.3 C 87 32 H 166/97 H 02/13/20 16:00 82 02/13/20 11:24 36.7 C 86 20 176/90 H 02/13/20 10:51 37 C 90 21 183/97 H Pulse Ox 02/13/20 19:37 98 02/13/20 16:00 02/13/20 11:24 93 02/13/20 10:51 94 PG Care Time/CCT Total # of Minutes Spent Total Time Spent with Patient: Total time spent is greater than 50% in coordination of care (as documented) at patient's floor/unit and/or counseling patient: Coding Level of Care Code 47664 Subseq Hosp Care Lvl 3 Diagnoses Seizure R56.9 Fever R50.9 Fever type: unspecified Right knee DJD M17.11 Coronary artery disease I25.10 Portal hypertension K76.6 Peripheral neuropathy G62.9 Hypertension I10 Heavy alcohol use Z78.9 Alcoholic cerebellar degeneration F10.20; G31.2 Alcoholic cirrhosis K70.30 Time Spent (min) 35 (1) Fever Fever type: unspecified Qualified Code(s): R50.9 - Fever, unspecified
[2020-02-14] MEDS: LORazepam 2 MG/4 ML VIAL IV PRN ×2 (03:58→22:23)
[2020-02-14] MEDS: LACTATED RINGER'S 1,000 ML IV SCH (05:02)
[2020-02-14 06:53] LABS: Hematocrit (blood only) 31.6 % (42-52); Hemoglobin 10.2 g/dL (14.0-18.0); Mean Corpuscular Hemoglobin 33.7 pg (25-34); Mean Corpuscular Hgb Conc 32.3 g/dL (32-36); Mean Corpuscular Volume 104.3 fL (80-100); RDW Coefficient of Variation 15.1 % (11.5-14.5); RDW Standard Deviation 56.4 fL (36.4-46.3); Red Blood Count 3.03 M/uL (4.7-6.1); White Blood Count 3.07 K/uL (4.8-10.8)
[2020-02-14 06:55] LABS: Mean Platelet Volume 11.3 fL (7.4-10.4); Platelet Count 60 K/uL (130-400)
[2020-02-14 07:24] LABS: Basophils # (auto) 0.02 K/uL (0-0.2); Basophils % (auto) 0.7 %; Eosinophils # (auto) 0.09 K/uL (0-0.5); Eosinophils % (auto) 2.9 %; Lymphocytes # (auto) 0.45 K/uL (1.2-3.4); Lymphocytes % (auto) 14.7 %; Monocytes # (auto) 0.44 K/uL (0.11-0.59); Monocytes % (auto) 14.3 %; Neutrophils # (auto) 2.07 K/uL (1.4-6.5); Neutrophils % (auto) 67.4 %; Polychromasia 1+
[2020-02-14 07:27] LABS: Albumin Level 2.3 gm/dl (3.4-5.0); BUN Creatinine Ratio 11.4 (10-20); Calcium 7.9 mg/dl (8.5-10.1); Creatinine Clr Calc Pharmacy 136.3 ml/min; Est GFR (Non-African American) 103.6; Potassium 3.2 mmol/L (3.5-5.1)
[2020-02-14 07:29] LABS: Albumin Globulin Ratio 0.5 (0.9-2); Bilirubin,Total 2.8 mg/dl (0.2-1); Globulin 4.6 gm/dl (2.5-4.0); Total Protein 6.9 gm/dl (6.4-8.2)
[2020-02-14] MEDS: LORazepam 3 MG/6 ML VIAL IV PRN (08:38)
[2020-02-14] MEDS: THIAMINE HCL 100 MG in SYRINGE 9 ML IV SCH (08:41)
[2020-02-14] MEDS: lamoTRIgine 100 MG TAB PO SCH ×2 (08:45→20:29)
[2020-02-14] MEDS: FOLIC ACID 1 MG TAB PO SCH (08:45)
[2020-02-14] MEDS: METOPROLOL SUCC 50MG EXT REL TAB PO SCH (08:45)
[2020-02-14] MEDS: POTASSIUM CHLORIDE 40 MEQ in SODIUM CHLORIDE 0.9% 1000ML 1,000 ML IV SCH ×2 (09:00→20:29)
[2020-02-14] MEDS: allopurinoL 300 MG TAB PO SCH (10:11)
--- NOTE | 2020-02-14 11:34 | Neurology Progress Note ---
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 Agree with reduced dosage of lamotrigine, 100 mg twice daily. I will order a routine bedside EEG. Keppra can be restarted if necessary. Continue supportive medical care for alcohol withdrawal and appropriate vitamin supplementation. He will likely need inpatient rehab to address his ataxia and gait dysfunction. 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 I had evaluated this patient in the past for his seizures and he has been prescribed both Lamictal and Keppra. He was last seen in our neurology clinic in June 2018, however. Unfortunately, he continues to abuse alcohol and has been manifesting signs and symptoms of withdrawal which is currently being managed medically. The patient was evaluated by Dr. Sarmiento, in neurological consultation during this hospitalization on February 10 and on February 12 for follow-up. At this point, the plan is to continue with lamotrigine at a reduced dosage, 100 mg twice daily in light of his history of liver disease. He remains encephalopathic and has been agitated, he received lorazepam earlier this morning. He has been afebrile for the past few days. He has pancytopenia. Review of Systems Review of Systems: Unobtainable due to cognitive status Results & Data ([facility]) Vital Signs (Past 12 Hours) Vital Signs Temp Pulse Pulse Resp BP Pulse Ox 02/14/20 08:00 77 02/14/20 07:37 36.9 C 102 H 18 158/76 H 96 02/14/20 00:41 104 H Laboratory Results WBC 3.07, hemoglobin 10.2, hematocrit 31.6, platelet count 60, sodium 139, potassium 3.2, BUN 8, creatinine 0.72, glucose 80, AST 81, ALT 20, ammonia 38, vitamin B12 1181, TSH 3.[address] of the head completed February 10, 2020 was negative for hemorrhage or acute process. Electrocardiogram completed February 10, 2020 reveals a normal sinus rhythm. Exam (Neuro) Constitutional: well developed, + altered mental status and + disheveled Neurologic: Oriented to:: negative Person, Place and Time Muscle Bulk/Involuntary Movements: No Involuntary Movements Details: Patient is sleeping soundly in bed, he has recently received lorazepam. No abnormal movements or posturing is observed. Coding Level of Care Code 40123 Subseq Hosp Care Lvl 2 Diagnoses Seizure disorder G40.909 Heavy alcohol use Z78.9 Alcoholic cerebellar degeneration F10.20; G31.2
[2020-02-14] MEDS ORDERED: GABAPENTIN 400 MG CAP PO SCH (12:00)
--- NOTE | 2020-02-14 17:42 | Electroencephalogram ---
EEG Procedure Note Date of Service February 14, 2020 Start / End Times Start Time: 1:01 PM End Time: 1:21 PM Referring Physician Oral Cade MD History Posttraumatic seizure disorder, encephalopathy, alcohol withdrawal Home Medication List Medication Instructions Recorded Confirmed Type lisinopril 20 mg tablet 20 mg PO QAM tab 02/12/19 02/10/20 History allopurinol 300 mg tablet 300 mg PO QAM #90 tab 01/18/20 02/10/20 Rx metoprolol succinate 100 mg 100 mg PO QAM #90 tab 01/31/20 02/10/20 Rx tablet,extended release 24 hr aspirin 81 mg PO QAM 02/10/20 02/10/20 History lamotrigine [Lamictal] 0 mg PO BID 02/10/20 02/10/20 History Inpatient Medication List Allopurinol (Allopurinol 300 Mg Tab) 300 mg PO QAM [facility] Stop: 03/12/20 08:59 Last Admin: 02/14/20 10:11 Dose: Not Given Documented by: [id number] Admin: 02/13/20 10:50 Dose: Not Given Documented by: [id number] Admin: 02/12/20 11:47 Dose: Not Given Documented by: [id number] Admin: 02/11/20 08:08 Dose: 300 mg Documented by: [id number] Folic Acid (Folic Acid 1 Mg Tab) 1 mg PO QAM [facility] Stop: 03/11/20 20:33 Last Admin: 02/14/20 08:45 Dose: Not Given Documented by: [id number] Admin: 02/13/20 10:50 Dose: Not Given Documented by: [id number] Admin: 02/12/20 11:47 Dose: Not Given Documented by: [id number] Admin: 02/11/20 08:09 Dose: 1 mg Documented by: [id number] Admin: 02/10/20 21:36 Dose: 1 mg Documented by: [id number] Lorazepam (Ativan) 2 mg in 4 mls @ 4 mls/min IV UD PRN; Protocol PRN Reason: EtOH Withdrawl AWSS Score 8,9 Stop: 03/11/20 20:33 Last Admin: 02/14/20 03:58 Dose: 4 mls/min Documented by: [id number] Admin: 02/13/20 15:03 Dose: 4 mls/min Documented by: [id number] Admin: 02/13/20 11:55 Dose: 4 mls/min Documented by: [id number] Admin: 02/13/20 10:49 Dose: 4 mls/min Documented by: [id number] Admin: 02/13/20 08:19 Dose: 4 mls/min Documented by: [id number] Admin: 02/13/20 02:12 Dose: 4 mls/min Documented by: [id number] Admin: 02/12/20 22:47 Dose: 4 mls/min Documented by: [id number] Admin: 02/12/20 21:09 Dose: 4 mls/min Documented by: [id number] Admin: 02/12/20 13:17 Dose: 4 mls/min Documented by: [id number] Admin: 02/12/20 06:19 Dose: 4 mls/min Documented by: [id number] Admin: 02/12/20 04:04 Dose: 4 mls/min Documented by: [id number] Admin: 02/12/20 01:35 Dose: 4 mls/min Documented by: [id number] Admin: 02/11/20 23:38 Dose: 4 mls/min Documented by: [id number] Admin: 02/11/20 15:24 Dose: 4 mls/min Documented by: [id number] Admin: 02/11/20 08:25 Dose: 4 mls/min Documented by: [id number] Admin: 02/11/20 04:17 Dose: 4 mls/min Documented by: [id number] Admin: 02/10/20 22:47 Dose: 4 mls/min Documented by: [id number] Lorazepam (Ativan) 3 mg in 6 mls @ 4 mls/min IV ONCE PRN; Protocol PRN Reason: EtOH Withdrawl AWSS Score >=10 Stop: 03/11/20 20:33 Last Admin: 02/14/20 08:38 Dose: 4 mls/min Documented by: [id number] Admin: 02/13/20 22:15 Dose: 4 mls/min Documented by: [id number] Admin: 02/13/20 18:17 Dose: 4 mls/min Documented by: [id number] Admin: 02/12/20 10:23 Dose: 4 mls/min Documented by: [id number] Admin: 02/11/20 19:59 Dose: 3 mls/min Documented by: [id number] Admin: 02/11/20 18:35 Dose: 4 mls/min Documented by: [id number] Thiamine HCl 100 mg/ Syringe 10 mls @ 2 mls/min IV QAM [facility] Stop: 03/14/20 08:59 Last Admin: 02/14/20 08:41 Dose: 2 mls/min Documented by: [id number] Admin: 02/13/20 08:23 Dose: 2 mls/min Documented by: [id number] Potassium Chloride 40 meq/ (Sodium Chloride) 1,020 mls @ 100 mls/hr IV .[id number] [facility] Stop: 03/15/20 08:29 Last Admin: 02/14/20 09:00 Dose: 100 mls/hr Documented by: [id number] Lamotrigine (Lamotrigine 100 Mg Tab) 300 mg PO HS [facility] Stop: 03/11/20 20:59 Last Admin: 02/10/20 21:37 Dose: 300 mg Documented by: [id number] Lamotrigine (Lamotrigine 100 Mg Tab) 400 mg PO [facility] Stop: 03/12/20 08:59 Last Admin: 02/11/20 08:08 Dose: 400 mg Documented by: [id number] Lamotrigine (Lamotrigine 100 Mg Tab) 100 mg PO BID [facility] Stop: 03/12/20 20:59 Last Admin: 02/14/20 08:45 Dose: Not Given Documented by: [id number] Admin: 02/13/20 20:08 Dose: Not Given Documented by: [id number] Admin: 02/13/20 10:50 Dose: Not Given Documented by: [id number] Admin: 02/12/20 21:10 Dose: Not Given Documented by: [id number] Admin: 02/12/20 11:47 Dose: Not Given Documented by: [id number] Admin: 02/11/20 22:26 Dose: Not Given Documented by: [id number] Metoprolol Succinate (Metoprolol Succ 50mg Ext Rel Tab) [facility] Stop: 03/12/20 08:59 Last Admin: 02/14/20 08:45 Dose: Not Given Documented by: [id number] Admin: 02/13/20 10:50 Dose: Not Given Documented by: [id number] Admin: 02/12/20 11:47 Dose: Not Given Documented by: [id number] Admin: 02/11/20 08:08 Dose: 100 mg Documented by: [id number] Discontinued Medications Acetaminophen (Acetaminophen 325 Mg Tab) 650 mg PO NOW STA Stop: 02/10/20 12:06 Last Admin: 02/10/20 12:11 Dose: 650 mg Documented by: [id number] Ceftriaxone Sodium (Ceftriaxone Sodium 2000mg/70ml D5w) Confirm Administered Dose 2,000 mg IV .STK-MED ONE Stop: 02/10/20 19:31 Last Admin: 02/10/20 19:34 Dose: Not Given Documented by: [id number] Gabapentin (Gabapentin 400 Mg Cap) 400 mg PO Q12H [facility] Stop: 02/13/20 12:01 Last Admin: 02/13/20 13:01 Dose: Not Given Documented by: [id number] Admin: 02/12/20 23:31 Dose: Not Given Documented by: [id number] Gabapentin (Gabapentin 400 Mg Cap) 400 mg PO Q6H [facility] Stop: 02/11/20 12:01 Last Admin: 02/11/20 13:05 Dose: 400 mg Documented by: [id number] Admin: 02/11/20 06:20 Dose: 400 mg Documented by: [id number] Gabapentin (Gabapentin 400 Mg Cap) 400 mg PO Q8H [facility] Stop: 02/12/20 14:01 Last Admin: 02/12/20 16:04 Dose: Not Given Documented by: [id number] Admin: 02/12/20 06:20 Dose: Not Given Documented by: [id number] Admin: 02/11/20 22:27 Dose: Not Given Documented by: [id number] Gabapentin (Gabapentin 400 Mg Cap) 800 mg PO NOW ONE Stop: 02/10/20 21:31 Last Admin: 02/10/20 21:35 Dose: 800 mg Documented by: [id number] Gabapentin (Gabapentin 400 Mg Cap) 400 mg PO Q24H [facility] Stop: 02/14/20 12:01 Last Admin: 02/14/20 10:53 Dose: Not Given Documented by: [id number] Sodium Chloride (Nss 1000ml) 1,000 mls @ 999 mls/hr IV .Q1H1M [facility] Stop: 02/10/20 10:15 Last Infusion: 02/10/20 10:40 Dose: 0 mls/hr Documented by: [id number] Admin: 02/10/20 09:39 Dose: 999 mls/hr Documented by: [id number] Ceftriaxone Sodium 2,000 mg/ (Dextrose) 70 mls @ 100 mls/hr IV Q24H [facility]; Protocol Stop: 02/12/20 19:29 Last Infusion: 02/11/20 20:12 Dose: 0 mls/hr Documented by: [id number] Admin: 02/11/20 19:30 Dose: 100 mls/hr Documented by: [id number] Infusion: 02/10/20 21:35 Dose: 0 mls/hr Documented by: [id number] Admin: 02/10/20 19:34 Dose: 100 mls/hr Documented by: [id number] Multivitamins 10 ml/ Thiamine HCl 100 mg/ Folic Acid 1 mg/Sodium Chloride 1,011.2 mls @ 500 mls/hr IV .Q2H2M ONE Stop: 02/10/20 23:01 Last Infusion: 02/10/20 22:48 Dose: 0 mls/hr Documented by: [id number] Admin: 02/10/20 21:36 Dose: 500 mls/hr Documented by: [id number] Lactated Ringer's (Lr) 1,000 mls @ 100 mls/hr IV .Q10H [facility] Stop: 03/11/20 20:33 Last Infusion: 02/14/20 08:41 Dose: 0 mls/hr Documented by: [id number] Admin: 02/14/20 05:02 Dose: 100 mls/hr Documented by: [id number] Infusion: 02/14/20 05:02 Dose: 100 mls/hr Documented by: [id number] Admin: 02/13/20 20:07 Dose: 100 mls/hr Documented by: [id number] Infusion: 02/13/20 20:07 Dose: 100 mls/hr Documented by: [id number] Admin: 02/13/20 10:50 Dose: 100 mls/hr Documented by: [id number] Infusion: 02/13/20 08:48 Dose: 100 mls/hr Documented by: [id number] Admin: 02/12/20 22:48 Dose: 100 mls/hr Documented by: [id number] Infusion: 02/12/20 22:48 Dose: 100 mls/hr Documented by: [id number] Admin: 02/12/20 14:33 Dose: 100 mls/hr Documented by: [id number] Infusion: 02/12/20 14:33 Dose: 0 mls/hr Documented by: [id number] Admin: 02/12/20 03:38 Dose: 100 mls/hr Documented by: [id number] Infusion: 02/12/20 03:38 Dose: 0 mls/hr Documented by: [id number] Admin: 02/11/20 18:01 Dose: 100 mls/hr Documented by: [id number] Infusion: 02/11/20 18:01 Dose: 100 mls/hr Documented by: [id number] Admin: 02/11/20 08:08 Dose: 100 mls/hr Documented by: [id number] Infusion: 02/11/20 07:40 Dose: 100 mls/hr Documented by: [id number] Admin: 02/10/20 21:40 Dose: 100 mls/hr Documented by: [id number] Thiamine HCl 500 mg/ Sodium (Chloride) 105 mls @ 210 mls/hr IV 2115 ONE Stop: 02/10/20 21:44 Last Infusion: 02/10/20 22:00 Dose: 0 mls/hr Documented by: [id number] Admin: 02/10/20 21:36 Dose: 210 mls/hr Documented by: [id number] Thiamine HCl 250 mg/ Sodium (Chloride) 52.5 mls @ 210 mls/hr IV QAM [facility] Stop: 02/12/20 23:59 Last Infusion: 02/12/20 11:16 Dose: 0 mls/hr Documented by: [id number] Admin: 02/12/20 10:31 Dose: 210 mls/hr Documented by: [id number] Thiamine HCl 500 mg/ Sodium (Chloride) 105 mls @ 210 mls/hr IV TID [facility] Stop: 02/11/20 21:29 Last Infusion: 02/11/20 21:30 Dose: 0 mls/hr Documented by: [id number] Admin: 02/11/20 21:00 Dose: 210 mls/hr Documented by: [id number] Infusion: 02/11/20 15:21 Dose: 0 mls/hr Documented by: [id number] Admin: 02/11/20 14:46 Dose: 210 mls/hr Documented by: [id number] Infusion: 02/11/20 08:55 Dose: 0 mls/hr Documented by: [id number] Admin: 02/11/20 08:25 Dose: 210 mls/hr Documented by: [id number] Potassium Chloride (K Devan / Wtr) 10 meq in 100 mls @ 100 mls/hr IV Q1H [facility] Stop: 02/13/20 21:59 Last Infusion: 02/13/20 23:27 Dose: 0 mls/hr Documented by: [id number] Admin: 02/13/20 22:15 Dose: 100 mls/hr Documented by: [id number] Infusion: 02/13/20 22:15 Dose: 100 mls/hr Documented by: [id number] Admin: 02/13/20 21:15 Dose: 100 mls/hr Documented by: [id number] Infusion: 02/13/20 21:15 Dose: 0 mls/hr Documented by: [id number] Admin: 02/13/20 20:07 Dose: 100 mls/hr Documented by: [id number] Infusion: 02/13/20 19:29 Dose: 0 mls/hr Documented by: [id number] Admin: 02/13/20 18:28 Dose: 100 mls/hr Documented by: [id number] Lorazepam (Ativan) 2 mg in 4 mls @ 4 mls/min IV NOW STA Stop: 02/13/20 18:29 Last Admin: 02/13/20 18:34 Dose: 4 mls/min Documented by: [id number] Lactulose (Lactulose Syrup 30 Gm/45 Ml Udp) 30 gm PO NOW STA Stop: 02/13/20 17:46 Last Admin: 02/13/20 18:29 Dose: Not Given Documented by: [id number] Description This is a 21 electrode EEG with a single channel dedicated to limited EKG. The electrodes were placed in accordance with the International 10-20 system. The predominant background rhythm consists of a mix of 10 Hz alpha activity and faster frontally predominant beta frequencies. Photic stimulation is unremarkable. Hyperventilation is not performed. There is movement artifact seen throughout the study. Interpretation This is an abnormal awake/drowsy EEG revealing a prominent frontal beta rhythm consistent with a benzodiazepine effect. There is no focal or lateralized slowing. There are no triphasic waves. There are no epileptiform abnormalities. [facility] EEG Procedure Codes Indication for Procedure (1) Seizure: (2) Alcoholic cirrhosis: Neurology Neurology: 89370 EEG include record awake & drowsy
--- NOTE | 2020-02-14 22:13 | Hospitalist Progress Note ---
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 Seizure 2/2 seizure disorder with recent cessation of antiepileptic versus alcohol withdrawal Patient with a history of alcohol abuse, ataxia with last drink 4 to 5 days prior to admission. See below. 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 Previously on Lamictal 250 mg every morning, 400 mg every afternoon and Keppra to 50 mg daily Stopped Keppra 6 months ago, patient is a somewhat poor historian and does not remember why this was stopped or she was advised to stop taking it by physician 2 seizure episodes with tongue biting, tonic-clonic and observed his in the 24 hours prior to admission Admit to PCU, seizure monitoring. -Given normal procal, doubt meningitis as confusion can be explained by alcohol withdrawal and possible seizures. -Fever on admission, elevated heart rate can also be explained by alcohol withdrawal, which this seems to be the main culprit. -javier stop antibiotics -- no signs of infection since stopping -will aggressively treat with benzo, no agitation today -updated on phone. 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 -Patient has remained intermittently confused while here in the hospital. -Likely going through withdrawal. frequent re-orientation Alcohol abuse concerns for active withdrawal Patient tremulous, mildly diaphoretic, with 2 seizures in the past 24 hours at time of admission -Likely withdrawal seizures, however cannot rule out other causes. -Neuro recommends lamictal, This has been started. -Patient currently is a poor historian. Patient endorsed on admission daily alcohol intake, at least 10 beers per day but indicates much more and is not observed during the day. Last drink Friday evening 4.5 days prior to admission. Denies history of withdrawal symptoms, but endorses tremor and seizure history as above High risk, admit on AWSS scoring with active Librium protocol Patient with ataxia, without confabulation. Elev MCV. High-dose thiamine regimen (500 3 times daily x1 day, 250 IV x1 day, 100 mg daily) Folic acid daily calmer today, try to increase activity with therapy Pancytopenia with severe thrombocytopenia WBC 3.75, hemoglobin 11, platelet 32 Patient with history of mild pancytopenia, platelets lower than normal MCV 103 Suspect combination of nutritional deficiency with direct alcohol toxicity on bone marrow Ambulatory dysfunction Ataxia with superimposed severe deconditioning Multiple falls, up to 11/day. Multiple bruises on patient's torso and legs from falls PT/OT pending given confusion. Alcohol treatment as above, patient will likely need rehab services CThead shows no acute intracranial findings or bleed CAD with PCI Patient with PCI to LAD 11/2018 Continue lisinopril 20 mg, metoprolol 100 mg every morning Patient reports he was stopped on a blood thinner due to his falls but cannot remember why he was on it or what it was for but that he was started on it by his rn examiner around his heart attack and was stopped from taking it by Dr. Reich. Cardiology notes reviewed, patient was moved from dual aspirin platelet therapy to aspirin monotherapy Aspirin held for severe thrombocytopenia DVT prophylaxis: SCDs Diet: Heart healthy Disposition: PCU CODE STATUS: Full code (2) Fever: (3) Right knee DJD: (4) Coronary artery disease: (5) Portal hypertension: Patient has signs of portal hypertension, given collateral veins. Patient likely will require transplant. However he wont be a candiate if he continues to drink. 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 MADDREY socre is between 28-32. Labs are improving. will hold prednisolone for now. (11) Hypokalemia: 3.2 today, won't take PO replacement change fluids to NSS + 40mEq of K repeat tomorrow Admission and Anticipated Discharge Date Admission Date: February 10, 2020 Subjective patient is laying in bed, confused, does not know where he is or why he is here discussed he is in [facility] in the hospital for alcohol withdrawal, confusion he says he wants a beer he mentions that his friend in August or September, says that it caused him a lot of pain asked if he was drinking more due to grief, he shrugged his shoulders explained that he had experienced two seizures in 24 hours, he did not believe me reviewed chart appreciate note from neurology Review of Systems Review of Systems: All systems reviewed & are unremarkable except as noted in Subjective Constitutional: + fatigue and + weakness; no fever, no chills and no sweats Respiratory: no cough and no dyspnea Cardiovascular: no chest pain and no edema Gastrointestinal: no abdominal pain, no nausea, no vomiting, no constipation and no diarrhea/loose stools Genitourinary: no dysuria Neurologic: + confusion and + memory loss Psychiatric: + anxiety, + confusion and + substance abuse (alcohol); no hallucinations Physical Exam Constitutional: WD/WN, vitals as above Eyes: PERRL, conjunctivae normal, anicteric sclerae ENMT: external ear and nose normal, oropharynx normal Neck: trachea midline, no thyromegaly Respiratory: normal respiratory effort, lungs clear to auscultation Cardiovascular: RRR, no murmur, no edema Gastrointestinal (Abdomen): normal bowel sounds, soft, nontender, no hepatosplenomegaly Musculoskeletal: no cyanosis or clubbing, extremities motor strength 5/5 Skin: no rashes, warm and dry Neurologic: CN's II-XI intact bilaterally, moves all extremities, awake and + confused; no focal motor deficits Motor/Sensory: no tremor Psychiatric: Orientation: alert, oriented to person and cooperative; + not oriented to place and + not oriented to time Lymphatic: no cervical or axillary lymphadenopathy Results & Data Results & Data ([facility]) Vital Signs (Past 12 Hours) Vital Signs Temp Pulse Pulse Resp BP BP Pulse Ox 02/14/20 19:21 37.5 C 92 H 20 169/91 H 92 02/14/20 16:00 89 02/14/20 15:03 37.2 C 100 H 21 158/91 H 93 02/14/20 11:36 36.7 C 98 H 20 161/71 H 96 Laboratory Results Laboratory Results - last 24 hr 02/10/20 02/14/20 02/14/20 21:01 06:37 06:37 WBC 3.07 L RBC 3.03 L Hgb 10.2 L Hct 31.6 L MCV 104.3 H MCH 33.7 MCHC 32.3 RDW Std Deviation 56.4 H RDW Coeff of Mindy 15.1 H Plt Count 60 L MPV 11.3 H Immature Gran % (Auto) 0.0 Neut % (Auto) 67.4 Lymph % (Auto) 14.7 Rincon % (Auto) 14.3 Eos % (Auto) 2.9 Baso % (Auto) 0.7 Neut # (Auto) 2.07 Lymph # (Auto) 0.45 L Rincon # (Auto) 0.44 Eos # (Auto) 0.09 Baso # (Auto) 0.02 Immature Gran # (Auto) 0.00 Polychromasia 1+ ESR 53 H Sodium Potassium Chloride Carbon Dioxide Anion Gap BUN Creatinine Est Cr Clr Drug Dosing Est GFR ( Amer) Est GFR (Non-Af Amer) BUN/Creatinine Ratio Glucose Calcium Total Bilirubin AST ALT Alkaline Phosphatase Total Protein Albumin Globulin Albumin/Globulin Ratio Procalcitonin A. phagocytophilum DNA Not Detected 02/14/20 02/14/20 06:37 06:37 WBC RBC Hgb Hct MCV MCH MCHC RDW Std Deviation RDW Coeff of Mindy Plt Count MPV Immature Gran % (Auto) Neut % (Auto) Lymph % (Auto) Rincon % (Auto) Eos % (Auto) Baso % (Auto) Neut # (Auto) Lymph # (Auto) Rincon # (Auto) Eos # (Auto) Baso # (Auto) Immature Gran # (Auto) Polychromasia ESR Sodium 139 Potassium 3.2 L Chloride 105 Carbon Dioxide 30 Anion Gap 5.0 BUN 8 Creatinine 0.72 Est Cr Clr Drug Dosing 136.3 Est GFR ( Amer) 120.0 Est GFR (Non-Af Amer) 103.6 BUN/Creatinine Ratio 11.4 Glucose 80 Calcium 7.9 L Total Bilirubin 2.8 H AST 81 H ALT 20 Alkaline Phosphatase 196 H Total Protein 6.9 Albumin 2.3 L Globulin 4.6 H Albumin/Globulin Ratio 0.5 L Procalcitonin 0.43 A. phagocytophilum DNA Medications Administered Current Inpatient Medications Allopurinol (Allopurinol 300 Mg Tab) 300 mg PO [facility] Stop: 03/12/20 08:59 Last Admin: 02/14/20 10:11 Dose: Not Given Documented by: Folic Acid (Folic Acid 1 Mg Tab) 1 mg PO [facility] Stop: 03/11/20 20:33 Last Admin: 02/14/20 08:45 Dose: Not Given Documented by: Lorazepam (Ativan) 1 mg in 2 mls @ 2 mls/min IV UD PRN; Protocol PRN Reason: EtOH Withdrawl AWSS Score 6,7 Stop: 03/11/20 20:33 Lorazepam (Ativan) 2 mg in 4 mls @ 4 mls/min IV UD PRN; Protocol PRN Reason: EtOH Withdrawl AWSS Score 8,9 Stop: 03/11/20 20:33 Last Admin: 02/14/20 03:58 Dose: 4 mls/min Documented by: Lorazepam (Ativan) 3 mg in 6 mls @ 4 mls/min IV ONCE PRN; Protocol PRN Reason: EtOH Withdrawl AWSS Score >=10 Stop: 03/11/20 20:33 Last Admin: 02/14/20 08:38 Dose: 4 mls/min Documented by: Thiamine HCl 100 mg/ Syringe 10 mls @ 2 mls/min IV QAM [facility] Stop: 03/14/20 08:59 Last Admin: 02/14/20 08:41 Dose: 2 mls/min Documented by: Potassium Chloride 40 meq/ (Sodium Chloride) 1,020 mls @ 100 mls/hr IV .[id number] [facility] Stop: 03/15/20 08:29 Last Admin: 02/14/20 20:29 Dose: 100 mls/hr Documented by: Lamotrigine (Lamotrigine 100 Mg Tab) 300 mg PO HS [facility] Stop: 03/11/20 20:59 Last Admin: 02/10/20 21:37 Dose: 300 mg Documented by: Lamotrigine (Lamotrigine 100 Mg Tab) 400 mg PO QAM [facility] Stop: 03/12/20 08:59 Last Admin: 02/11/20 08:08 Dose: 400 mg Documented by: Lamotrigine (Lamotrigine 100 Mg Tab) 100 mg PO BID [facility] Stop: 03/12/20 20:59 Last Admin: 02/14/20 20:29 Dose: Not Given Documented by: Metoprolol Succinate (Metoprolol Succ 50mg Ext Rel Tab) 100 mg PO QAM [facility] Stop: 03/12/20 08:59 Last Admin: 02/14/20 08:45 Dose: Not Given Documented by: PG Care Time/CCT Total # of Minutes Spent Total Time Spent with Patient: Total time spent is greater than 50% in coordination of care (as documented) at patient's floor/unit and/or counseling patient: Coding Level of Care Code 84877 Subseq Hosp Care Lvl 2 Diagnoses Seizure R56.9 Fever R50.9 Fever type: unspecified Right knee DJD M17.11 Coronary artery disease I25.10 Portal hypertension K76.6 Peripheral neuropathy G62.9 Hypertension I10 Heavy alcohol use Z78.9 Alcoholic cerebellar degeneration F10.20; G31.2 Alcoholic cirrhosis K70.30 Hypokalemia E87.6 (1) Fever Fever type: unspecified Qualified Code(s): R50.9 - Fever, unspecified
[2020-02-15] MEDS: LORazepam 2 MG/4 ML VIAL IV PRN ×6 (02:13→23:36)
--- NOTE | 2020-02-15 04:31 | Billing Data ---
Date of Service February 15, 2020 Coding Level of Care Code 53165 Initial Inpt Care Lvl 3
[2020-02-15] MEDS: POTASSIUM CHLORIDE 40 MEQ in SODIUM CHLORIDE 0.9% 1000ML 1,000 ML IV SCH ×2 (05:10→14:43)
[2020-02-15 07:06] LABS: Hematocrit (blood only) 31.2 % (42-52); Hemoglobin 10.1 g/dL (14.0-18.0); Mean Corpuscular Hgb Conc 32.4 g/dL (32-36); Mean Corpuscular Volume 105.1 fL (80-100); RDW Coefficient of Variation 15.3 % (11.5-14.5); Red Blood Count 2.97 M/uL (4.7-6.1); White Blood Count 3.18 K/uL (4.8-10.8)
[2020-02-15 07:14] LABS: Mean Platelet Volume 11.4 fL (7.4-10.4); Platelet Count 78 K/uL (130-400)
[2020-02-15 07:32] LABS: Albumin Level 2.2 gm/dl (3.4-5.0); BUN Creatinine Ratio 13.3 (10-20); Calcium 7.6 mg/dl (8.5-10.1); Creatinine Clr Calc Pharmacy 151.1 ml/min; Est GFR (African American) 125.2; Magnesium 1.8 mg/dl (1.8-2.4); Potassium 3.4 mmol/L (3.5-5.1)
[2020-02-15 07:33] LABS: Basophils # (auto) 0.03 K/uL (0-0.2); Basophils % (auto) 0.9 %; Eosinophils # (auto) 0.08 K/uL (0-0.5); Eosinophils % (auto) 2.5 %; Immature Granulocytes # (auto) 0.01 K/uL (0.00-0.02); Immature Granulocytes % (auto) 0.3 %; Lymphocytes # (auto) 0.58 K/uL (1.2-3.4); Lymphocytes % (auto) 18.2 %; Monocytes # (auto) 0.48 K/uL (0.11-0.59); Monocytes % (auto) 15.1 %
[2020-02-15 07:35] LABS: Albumin Globulin Ratio 0.5 (0.9-2); Bilirubin,Total 2.7 mg/dl (0.2-1); Globulin 4.4 gm/dl (2.5-4.0); Total Protein 6.6 gm/dl (6.4-8.2)
[2020-02-15] MEDS: THIAMINE HCL 100 MG in SYRINGE 9 ML IV SCH (08:24)
[2020-02-15] MEDS: FOLIC ACID 1 MG TAB PO SCH (08:25)
[2020-02-15] MEDS: allopurinoL 300 MG TAB PO SCH (08:25)
[2020-02-15] MEDS: METOPROLOL SUCC 50MG EXT REL TAB PO SCH (08:25)
[2020-02-15] MEDS: lamoTRIgine 100 MG TAB PO SCH ×2 (08:25→20:02)
--- NOTE | 2020-02-15 10:05 | Neurology Progress Note ---
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 No evidence of subclinic al seizure activity on yesterday's EEG. Patient is a bit more alert today but remains encephalopathic. He does have mild asterixis which is likely related to his chronic liver disease. Patient may continue with lamotrigine 100 mg twice daily. He will likely need inpatient rehab for his ataxia/gait dysfunction. Continue supportive medical care in the context of alcohol withdrawal. Admission and Anticipated Discharge Date Admission Date: February 10, 2020 Subjective Follow-up for seizure disorder, history of alcoholic cerebellar degeneration The patient is a 55-year-old male with a history of suspected posttraumatic epilepsy, alcohol abuse, alcohol induced cerebellar degeneration, neuropathy, and liver disease who [facility] and [facility]. He had previously been taking Lamictal and Keppra for his seizures. Keppra was discontinued prior to his admission. His Lamictal dosage was reduced in the context of his liver disease. He had received lorazepam for agitation prior to my assessment of him yesterday morning. An EEG completed at that time revealed a prominent frontal beta rhythm suggestive of benzodiazepine effect. There were no triphasic waves or epileptiform abnormalities. This morning, the patient is a bit more alert but remains moderately encephalopathic. He is an unreliable historian. He has not had any seizure activity overnight. Current monitoring for alcohol withdrawal. Review of Systems Review of Systems: Unobtainable due to cognitive status Results & Data ([facility]) Vital Signs (Past 12 Hours) Vital Signs Temp Pulse Pulse Resp BP Pulse Ox 02/15/20 07:07 37.5 C 86 20 177/89 H 96 02/15/20 03:21 37 C 97 H 22 137/95 96 02/14/20 23:41 100 H 02/14/20 23:06 36.8 C 99 H 20 151/88 H 95 Exam (Neuro) Constitutional: + altered mental status Appears jaundiced Neurologic: Oriented to:: negative Person, Place and Time Attention: negative Span Intact and Concentration Intact Cranial Nerves: Normal II, III, IV, and VII Motor Strength: negative Normal Lower Extremities and Normal Upper Extremities Motor Tone: Normal Lower Extremities and Normal Upper Extremities Coordination: Dysdiadochokinesia, Finger-Nose Abnormal and Heel- Malik Abnormal Details: Patient exhibits bilateral upper extremity negative myoclonus/asterixis of mild severity. Ocular motility normal, no nystagmus or ophthalmoplegia. Coding Level of Care Code 19890 Subseq Hosp Care Lvl 2 Diagnoses Seizure disorder G40.909 Heavy alcohol use Z78.9 Alcoholic cerebellar degeneration F10.20; G31.2
--- NOTE | 2020-02-15 16:20 | Hospitalist Progress Note ---
Date of Service February 15, 2020 Assessment & Plan (1) Seizure: Uvaldo Mendez is a 55-year-old male with a past medical history of coronary artery disease with LAD stenting 11/2018, hypertension, seizure disorder 2/2 TBI in 1981, alcohol abuse, and ambulatory dysfunction who presents with 2 s eizures and increasing falls in the previous weeks. Seizure 2/2 seizure disorder with recent cessation of antiepileptic versus alcohol withdrawal Patient with a history of alcohol abuse, ataxia with last drink 4 to 5 days prior to admission. See below. 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 Previously on Lamictal 250 mg every morning, 400 mg every afternoon and Keppra to 50 mg daily Stopped Keppra 6 months ago, patient is a somewhat poor historian and does not remember why this was stopped or she was advised to stop taking it by physician 2 seizure episodes with tongue biting, tonic-clonic and observed his in the 24 hours prior to admission Admit to PCU, seizure monitoring, no seizure activity since admission no signs of infection, off antibiotics for several days Encephalopathy continues to be oriented only to self and that is not all the time having visual hallucinations not eating unclear etiology, concerned that he may not recover electrolytes stable, ammonia was only 38 on 02/12, no signs of infection, no seizure activity observed could be combination of alcohol abuse and Ativan being given to limit agitation continue to monitor closely, if no improvement then may need to consider palliative consulation Alcohol abuse concerns for active withdrawal Patient tremulous, mildly diaphoretic, with 2 seizures in the past 24 hours at time of admission -Likely withdrawal seizures, however cannot rule out other causes. -Neuro recommends lamictal, This has been started. getting Ativan bases on AWSS score, could be causing his confusion Patient endorsed on admission daily alcohol intake, at least 10 beers per day but indicates much more and is not observed during the day. Last drink Friday evening 4.5 days prior to admission. Denies history of withdrawal symptoms, but endorses tremor and seizure history as above High risk, admit on AWSS scoring with active Librium protocol Patient with ataxia, without confabulation. Elev MCV. High-dose thiamine regimen (500 3 times daily x1 day, 250 IV x1 day, 100 mg daily) Folic acid daily very confused today, having hallucinations Pancytopenia with severe thrombocytopenia WBC 3, hemoglobin 10, platelet 78 Patient with history of mild pancytopenia MCV 103 Suspect combination of nutritional deficiency with direct alcohol toxicity on bone marrow Ambulatory dysfunction Ataxia with superimposed severe deconditioning Multiple falls, up to 11/day. Multiple bruises on patient's torso and legs from falls PT/OT pending given confusion. Alcohol treatment as above, patient will likely need rehab services, may ultimately need placement if he does not improve CThead shows no acute intracranial findings or bleed CAD with PCI Patient with PCI to LAD 11/2018 Continue lisinopril 20 mg, metoprolol 100 mg every morning Patient reports he was stopped on a blood thinner due to his falls but cannot remember why he was on it or what it was for but that he was started on it by his physical plant manager around his heart attack and was stopped from taking it by Dr. Reich. Cardiology notes reviewed, patient was moved from dual aspirin platelet therapy to aspirin monotherapy Aspirin held for severe thrombocytopenia DVT prophylaxis: SCDs Diet: Heart healthy Disposition: PCU CODE STATUS: Full code (2) Fever: (3) SOB (shortness of breath) on exertion: (4) Coronary artery disease: (5) Cirrhosis: (6) Chronic venous insufficiency: (7) Seizure disorder: (8) Portal hypertension: Patient has signs of portal hypertension, given collateral veins. (9) Hypertension: (10) Heavy alcohol use: remains on AWSS (11) Anemia: (12) Ataxia: Admission and Anticipated Discharge Date Admission Date: February 10, 2020 Subjective patient continues to be confused, more confused than yesterday, appears to have visual hallucinations would not eat much for lunch he is not in any distress reviewed labs, WBC 3k, Hb 10, plts 78 K is 3.4 and Cr is 0.65 Review of Systems Review of Systems: Unobtainable due to cognitive status Physical Exam Constitutional: WD/WN, vitals as above Neck: trachea midline, no thyromegaly Respiratory: normal respiratory effort, lungs clear to auscultation Cardiovascular: RRR, no murmur, no edema Gastrointestinal (Abdomen): normal bowel sounds, soft, nontender, no hepatosplenomegaly Musculoskeletal: no cyanosis or clubbing, extremities motor strength 5/5 Skin: no rashes, warm and dry Neurologic: CN's II-XI intact bilaterally, moves all extremities, awake and + confused; no focal motor deficits Motor/Sensory: no tremor Psychiatric: Orientation: alert, oriented to person and cooperative; + not oriented to place and + not oriented to time Eye Contact: + poor eye contact Affect: + flat affect Hallucinations: + visual hallucinations Lymphatic: no cervical or axillary lymphadenopathy Results & Data Results & Data ([facility]) Vital Signs (Past 12 Hours) Vital Signs Temp Pulse Pulse Resp BP BP Pulse Ox 02/15/20 15:56 36.6 C 88 18 160/93 H 93 02/15/20 08:00 94 H 02/15/20 07:07 37.5 C 86 20 177/89 H 96 Laboratory Results Laboratory Results - last 24 hr 02/15/20 02/15/20 06:42 06:42 WBC 3.18 L RBC 2.97 L Hgb 10.1 L Hct 31.2 L MCV 105.1 H MCH 34.0 MCHC 32.4 RDW Std Deviation 58.0 H RDW Coeff of Mindy 15.3 H Plt Count 78 L MPV 11.4 H Immature Gran % (Auto) 0.3 Neut % (Auto) 63.0 Lymph % (Auto) 18.2 [place] % (Auto) 15.1 Eos % (Auto) 2.5 Baso % (Auto) 0.9 Neut # (Auto) 2.00 Lymph # (Auto) 0.58 L [place] # (Auto) 0.48 Eos # (Auto) 0.08 Baso # (Auto) 0.03 Immature Gran # (Auto) 0.01 Sodium 140 Potassium 3.4 L Chloride 109 H Carbon Dioxide 27 Anion Gap 4.0 BUN 9 Creatinine 0.65 Est Cr Clr Drug Dosing 151.1 Est GFR ( Amer) 125.2 Est GFR (Non-Af Amer) 108.0 BUN/Creatinine Ratio 13.3 Glucose 87 Calcium 7.6 L Magnesium 1.8 Total Bilirubin 2.7 H AST 65 H ALT 19 Alkaline Phosphatase 188 H Total Protein 6.6 Albumin 2.2 L Globulin 4.4 H Albumin/Globulin Ratio 0.5 L Medications Administered Current Inpatient Medications [facility]urin[facility] ([facility] 300 Mg Tab) [facility] Stop: 03/12/20 08:59 Last Admin: 02/15/20 08:25 Dose: 300 mg Documented by: Folic Acid (Folic Acid 1 Mg Tab) [facility] Stop: 03/11/20 20:33 Last Admin: 02/15/20 08:25 Dose: 1 mg Documented by: Lorazepam (Ativan) 1 mg in 2 mls @ 2 mls/min IV UD PRN; Protocol PRN Reason: EtOH Withdrawl AWSS Score 6,7 Stop: 03/11/20 20:33 Lorazepam (Ativan) 2 mg in 4 mls @ 4 mls/min IV UD PRN; Protocol PRN Reason: EtOH Withdrawl AWSS Score 8,9 Stop: 03/11/20 20:33 Last Admin: 02/15/20 14:57 Dose: 4 mls/min Documented by: Lorazepam (Ativan) 3 mg in 6 mls @ 4 mls/min IV ONCE PRN; Protocol PRN Reason: EtOH Withdrawl AWSS Score >=10 Stop: 03/11/20 20:33 Last Admin: 02/14/20 08:38 Dose: 4 mls/min Documented by: Thiamine HCl 100 mg/ Syringe 10 mls @ 2 mls/min IV QAM [facility] Stop: 03/14/20 08:59 Last Admin: 02/15/20 08:24 Dose: 2 mls/min Documented by: Potassium Chloride 40 meq/ (Sodium Chloride) 1,020 mls @ 100 mls/hr IV .[id number] [facility] Stop: 03/15/20 08:29 Last Admin: 02/15/20 14:43 Dose: 100 mls/hr Documented by: Lamotrigine (Lamotrigine 100 Mg Tab) 300 mg PO HS [facility] Stop: 03/11/20 20:59 Last Admin: 02/10/20 21:37 Dose: 300 mg Documented by: Lamotrigine (Lamotrigine 100 Mg Tab) 400 mg PO QAM [facility] Stop: 03/12/20 08:59 Last Admin: 02/11/20 08:08 Dose: 400 mg Documented by: Lamotrigine (Lamotrigine 100 Mg Tab) 100 mg PO BID [facility] Stop: 03/12/20 20:59 Last Admin: 02/15/20 08:25 Dose: 100 mg Documented by: Metoprolol Succinate (Metoprolol Succ 50mg Ext Rel Tab) 100 mg PO QAM [facility] Stop: 03/12/20 08:59 Last Admin: 02/15/20 08:25 Dose: 100 mg Documented by: PG Care Time/CCT Total # of Minutes Spent Total Time Spent with Patient: Total time spent is greater than 50% in coordination of care (as documented) at patient's floor/unit and/or counseling patient: Coding Level of Care Code 05703 Subseq Hosp Care Lvl 2 Diagnoses Seizure R56.9 Fever R50.9 Fever type: unspecified SOB (shortness of breath) on exertion R06.02 Coronary artery disease I25.10 Cirrhosis K74.60 Chronic venous insufficiency I87.2 Seizure disorder G40.909 Portal hypertension K76.6 Hypertension I10 Heavy alcohol use Z78.9 Anemia D64.9 Ataxia R27.0 (1) Fever Fever type: unspecified Qualified Code(s): R50.9 - Fever, unspecified
[2020-02-16] MEDS: POTASSIUM CHLORIDE 40 MEQ in SODIUM CHLORIDE 0.9% 1000ML 1,000 ML IV SCH ×3 (00:47→21:29)
[2020-02-16] MEDS: LORazepam 2 MG/4 ML VIAL IV PRN ×7 (00:48→21:29)
--- NOTE | 2020-02-16 09:14 | Neurology Progress Note ---
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 He remains moderately encephalopathic and agitated in the context of alcohol withdrawal with delirium. He has been receiving lorazepam. Patient has not had any observed seizures. Patient should continue lamotrigine 100 mg twice daily. Continue supportive medical care in the context of alcohol withdrawal. Patient will likely need inpatient rehab for his ataxia/gait dysfunction. Would consider obtaining an up-to-date brain MRI, seizure protocol once patient is medically stabilized and less agitated. Admission and Anticipated Discharge Date Admission Date: February 10, 2020 Subjective Follow-up for seizure disorder, history of heavy alcohol use The patient is a 55-year-old male with a history of posttraumatic epilepsy, alcohol abuse, alcohol induced cerebellar degeneration, neuropathy, and liver disease. He had presented to the [facility] on February 09 with seizure and falls and had indicated that his neurologist was decreasing his anticonvulsant medication. He had previously been prescribed Lamictal and Keppra for his posttraumatic seizures. He may not have been taking Keppra any longer and it is unclear how much or if any lamotrigine he has been taking prior to this admission. A lamotrigine level was obtained on February 11 but remains pending at this time. The patient has been intermittently agitated in the context of this hospitalization due to alcohol withdrawal, he continues to receive lorazepam on an as-needed basis. He has not had any observed clinical seizure activity. An EEG completed February 13 revealed a prominent beta rhythm/benzodiazepine effect and was otherwise negative for epileptiform abnormalities. The patient remains agitated this morning, he attempts to climb out of bed periodically he is on one-to-one observation. He remains a poor historian. Review of Systems Review of Systems: Unobtainable due to cognitive status Results & Data ([facility]) Vital Signs (Past 12 Hours) Vital Signs Temp Pulse Pulse Resp BP BP Pulse Ox 02/16/20 07:44 37.2 C 86 86 20 156/84 H 96 02/16/20 04:00 36.8 C 79 20 146/82 H 94 02/16/20 00:46 171/98 H 02/15/20 23:10 36.9 C 78 18 166/85 H 95 Exam (Neuro) Constitutional: + altered mental status Neurologic: Oriented to:: negative Person, Place and Time Attention: negative Span Intact and Concentration Intact Cranial Nerves: Normal II, III, IV, (There is no nystagmus or ophthalmoplegia.) and VII Motor Strength: Normal Lower Extremities and Normal Upper Extremities Muscle Bulk/Involuntary Movements: No Involuntary Movements Details: Patient remains in bed, he is mildly agitated and have been attempting to climb out of bed prior to my arrival. He is on one-to-one observation. He exhibits impaired attention and concentration and is not oriented to place or time. He follows simple commands and will gaze to the left and right, open and close the hands, and wiggle the toes. He becomes easily agitated. No abnormal movements or postures observed. 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
[2020-02-16] MEDS: THIAMINE HCL 100 MG in SYRINGE 9 ML IV SCH (10:26)
[2020-02-16] MEDS: METOPROLOL SUCC 50MG EXT REL TAB PO SCH (10:57)
[2020-02-16] MEDS: lamoTRIgine 100 MG TAB PO SCH ×2 (10:57→21:28)
[2020-02-16] MEDS: allopurinoL 300 MG TAB PO SCH (10:57)
[2020-02-16] MEDS: FOLIC ACID 1 MG TAB PO SCH (10:57)
--- NOTE | 2020-02-16 12:33 | Hospitalist Progress Note ---
Date of Service February 16, 2020 Assessment & Plan (1) Seizure: Uvaldo Mendez is a 55-year-old male with a past medical history of coronary artery disease with LAD stenting 11/2018, hypertension, seizure disorder 2/2 TBI in 1981, alcohol abuse, and ambulatory dysfunction who presents with 2 s eizures and increasing falls in the previous weeks. Seizure 2/2 seizure disorder with recent cessation of antiepileptic versus alcohol withdrawal Patient with a history of alcohol abuse, ataxia with last drink 4 to 5 days prior to admission. See below. 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 Previously on Lamictal 250 mg every morning, 400 mg every afternoon and Keppra to 50 mg daily Stopped Keppra 6 months ago, patient is a somewhat poor historian and does not remember why this was stopped or if he was advised to stop taking it by physician 2 seizure episodes with tongue biting, tonic-clonic and observed his in the 24 hours prior to admission Admit to PCU, seizure monitoring, no seizure activity since admission no signs of infection, off antibiotics for several days neuro plans for keppra, would like MRI when pt is able to cooperate better Keppra levels pending Encephalopathy continues to be oriented only to self and that is not all the time having visual hallucinations not eating unclear etiology, concerned that he may not recover electrolytes stable, ammonia was only 38 on 02/12, no signs of infection, no seizure activity observed could be combination of alcohol abuse and Ativan being given to limit agitation continue to monitor closely, if no improvement then may need to consider palliative consultation Alcohol abuse concerns for active withdrawal Patient tremulous, mildly diaphoretic, with 2 seizures in the past 24 hours at time of admission -Likely withdrawal seizures, however cannot rule out other causes. -Neuro recommends lamictal, This has been started. getting Ativan bases on AWSS score, could be causing his confusion Patient endorsed on admission daily alcohol intake, at least 10 beers per day but indicates much more and is not observed during the day. Last drink Friday evening 4.5 days prior to admission. Denies history of withdrawal symptoms, but endorses tremor and seizure history as above High risk, admit on AWSS scoring with active Librium protocol Patient with ataxia, without confabulation. Elev MCV. High-dose thiamine regimen (500 3 times daily x1 day, 250 IV x1 day, 100 mg daily) Folic acid daily very confused today, having hallucinations Pancytopenia with severe thrombocytopenia WBC 3, hemoglobin 10, platelet 78 Patient with history of mild pancytopenia MCV 103 Suspect combination of nutritional deficiency with direct alcohol toxicity on bone marrow Ambulatory dysfunction Ataxia with superimposed severe deconditioning Multiple falls, up to 11/day. Multiple bruises on patient's torso and legs from falls PT/OT pending given confusion. 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 Reich. Cardiology notes reviewed, patient was moved from dual aspirin platelet therapy to aspirin monotherapy Aspirin held for severe thrombocytopenia DVT prophylaxis: SCDs Diet: Heart healthy Disposition: PCU CODE STATUS: Full code (2) Fever: (3) SOB (shortness of breath) on exertion: (4) Coronary artery disease: (5) Cirrhosis: (6) Chronic venous insufficiency: (7) Seizure disorder: (8) Portal hypertension: Patient has signs of portal hypertension, given collateral veins. (9) Hypertension: (10) Heavy alcohol use: remains on AWSS (11) Anemia: (12) Ataxia: Admission and Anticipated Discharge Date Admission Date: February 10, 2020 Subjective Per nurse who is one-to-one today, pt has been at what is his baseline. He has been talking, but not coherent. No acute issues. Sitter attempted to feed pt, but he was not interested in eating. Review of Systems Review of Systems: Unable to obtain due to current mental status Physical Exam Constitutional: WD/WN, vitals as above Eyes: normal visual callejas by confrontation and + anicteric sclerae Neck: normal visual inspection and trachea midline Respiratory: normal respiratory effort, lungs clear to auscultation Cardiovascular: Rate/Rhythm: regular rate and regular rhythm Gastrointestinal (Abdomen): Inspection/Auscultation: abdomen not distended Percussion/Palpation: abdomen soft; abdomen nontender Musculoskeletal: Head/Neck/Chest: normocephalic and head atraumatic negative for edema, peripheral pulses intact Skin: no rashes, warm and dry Neurologic: awake and + confused Speech / Cognition: + abnormal speech (mumbling) Psychiatric: Orientation: alert Eye Contact: good eye contact (makes eye contact when spoken to, does not appear agitated) Speech: + abnormal rate/rhythm/volume of speech Affect: + blunted affect Results & Data Results & Data ([facility]) Vital Signs (Past 12 Hours) Vital Signs Temp Pulse Pulse Resp BP BP Pulse Ox 02/16/20 11:35 36.9 C 77 18 156/94 H 95 02/16/20 07:44 37.2 C 86 86 20 156/84 H 96 02/16/20 04:00 36.8 C 79 20 146/82 H 94 02/16/20 00:46 171/98 H PG Care Time/CCT Total # of Minutes Spent Total Time Spent with Patient: Total time spent is greater than 50% in coordination of care (as documented) at patient's floor/unit and/or counseling patient: Coding Level of Care Code 04014 Subseq Hosp Care Lvl 3 Diagnoses Seizure R56.9 Fever R50.9 Fever type: unspecified SOB (shortness of breath) on exertion R06.02 Coronary artery disease I25.10 Cirrhosis K74.60 Chronic venous insufficiency I87.2 Seizure disorder G40.909 Portal hypertension K76.6 Hypertension I10 Heavy alcohol use Z78.9 Anemia D64.9 Ataxia R27.0 (1) Fever Fever type: unspecified Qualified Code(s): R50.9 - Fever, unspecified
[2020-02-17] MEDS: LORazepam 2 MG/4 ML VIAL IV PRN ×2 (00:09→04:37)
[2020-02-17 06:19] LABS: Basophils # (auto) 0.04 K/uL (0-0.2); Basophils % (auto) 1.2 %; Eosinophils # (auto) 0.12 K/uL (0-0.5); Eosinophils % (auto) 3.6 %; Hematocrit (blood only) 33.3 % (42-52); Hemoglobin 10.9 g/dL (14.0-18.0); Immature Granulocytes # (auto) 0.01 K/uL (0.00-0.02); Immature Granulocytes % (auto) 0.3 %; Lymphocytes # (auto) 0.51 K/uL (1.2-3.4); Lymphocytes % (auto) 15.3 %; Mean Corpuscular Hemoglobin 34.4 pg (25-34); Mean Platelet Volume 11.2 fL (7.4-10.4); Monocytes # (auto) 0.48 K/uL (0.11-0.59); Monocytes % (auto) 14.4 %; Neutrophils # (auto) 2.18 K/uL (1.4-6.5); Neutrophils % (auto) 65.2 %; Platelet Count 103 K/uL (130-400); RDW Coefficient of Variation 15.1 % (11.5-14.5); RDW Standard Deviation 57.5 fL (36.4-46.3); Red Blood Count 3.17 M/uL (4.7-6.1); White Blood Count 3.34 K/uL (4.8-10.8)
[2020-02-17 06:22] LABS: Mean Corpuscular Hgb Conc 32.7 g/dL (32-36)
--- NOTE | 2020-02-17 06:43 | Communication Note ---
Date of Service: February 17, 2020 Notified that pt was having abdominal discomfort. On exam, pt as restless with diffuse abdominal guarding. Stat CT with IV contrast ordered, CBC, CMP and lipase. Followup by daytime provider. Resident Activity Tracking Resident Involvement: [place] Coverage Note Care Provided: Adult Hospital Medicine
[2020-02-17 07:01] LABS: Albumin Globulin Ratio 0.5 (0.9-2); Albumin Level 2.3 gm/dl (3.4-5.0); BUN Creatinine Ratio 11.9 (10-20); Bilirubin,Total 2.7 mg/dl (0.2-1); Calcium 7.7 mg/dl (8.5-10.1); Creatinine Clr Calc Pharmacy 145.1 ml/min; Est GFR (African American) 123.6; Est GFR (Non-African American) 106.7; Globulin 4.5 gm/dl (2.5-4.0); Total Protein 6.8 gm/dl (6.4-8.2)
[2020-02-17] MEDS ORDERED: IOVERSOL 100ml IV ONE (07:34)
--- NOTE | 2020-02-17 07:43 | CT Scan Report ---
CT abd pelvis IV con only CLINICAL HISTORY: Severe abdominal pain and guarding. COMPARISON STUDY: CT scan dated 07/25/2017 TECHNIQUE: The patient was scanned in a dynamic helical fashion during intravenous administration of 94 cc of Optiray 320 A dose lowering technique was utilized adhering to the principles of ALARA. CT DOSE: 1704.68 mGy.cm FINDINGS: Lower chest: There are coronary artery calcifications. There are small bilateral pleural effusions. T here are basilar airspace opacities likely atelectatic. There is significant respiratory motion artif act. Liver: The liver has a cirrhotic morphology. No focal masses are visualized. The portal and hepatic v eins appear patent. There is evidence for portal venous hypertension with collateral vessels. Gallbladder: Cholelithiasis Spleen: Enlarged measuring 17 cm Pancreas: Unremarkable. Adrenal glands: Unremarkable. Kidneys: There is a chronic left UPJ obstruction, similar to the prior study. No solid renal masses a re visualized. Bowel: There are no transition zones to indicate bowel obstruction. There is mild nonspecific colonic wall thickening. This could be secondary to hepatocellular disease although a colitis cannot be excl uded. There is no evidence of acute appendicitis. Peritoneum: There is mild to moderate ascites. There is no free air. Vasculature: The abdominal aorta is normal in course and caliber. Adenopathy: None. Pelvic viscera: There is an indwelling Lam catheter. Skeletal structures: There is a stable mixed lytic and sclerotic lesion involving the S1 vertebra. Th is appears benign and may represent a hemangioma IMPRESSION: 1. Hepatic cirrhosis with evidence of portal hypertension, splenomegaly, varices, and mild to moderat e ascites 2. Small bilateral pleural effusions 3. No evidence of bowel obstruction. No evidence of free air 4. Cholelithiasis 5. Mild colonic wall thickening. While this may be secondary to hepatocellular disease, a colitis cou ld appear similar 6. Chronic left UPJ obstruction 7. The examination is motion degraded. ACT 112: Negative or not required by law. Electronically signed by: Rahul Rodriguez M.D. 02/17/2020 7:41 AM
[2020-02-17] MEDS: METOPROLOL SUCC 50MG EXT REL TAB PO SCH (10:17)
[2020-02-17] MEDS: lamoTRIgine 100 MG TAB PO SCH ×2 (10:17→20:35)
[2020-02-17] MEDS: THIAMINE HCL 100 MG in SYRINGE 9 ML IV SCH (10:17)
[2020-02-17] MEDS: FOLIC ACID 1 MG TAB PO SCH (10:17)
[2020-02-17] MEDS: allopurinoL 300 MG TAB PO SCH (10:17)
--- NOTE | 2020-02-17 13:45 | Hospitalist Progress Note ---
Date of Service February 17, 2020 Assessment & Plan (1) Seizure: Uvaldo Mendez is a 55-year-old male with a past medical history of coronary artery disease with LAD stenting 11/2018, hypertension, seizure disorder 2/2 TBI in 1981, alcohol abuse, and ambulatory dysfunction who presents with 2 s eizures and increasing falls in the previous weeks. Seizure 2/2 seizure disorder with recent cessation of antiepileptic versus alcohol withdrawal Patient with a history of alcohol abuse, ataxia with last drink 4 to 5 days prior to admission. See below. 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 Previously on Lamictal 250 mg every morning, 400 mg every afternoon and Keppra to 50 mg daily Stopped Keppra 6 months ago, patient is a somewhat poor historian and does not remember why this was stopped or if he was advised to stop taking it by physician 2 seizure episodes with tongue biting, tonic-clonic and observed his in the 24 hours prior to admission Admit to PCU, seizure monitoring, no seizure activity since admission no signs of infection, off antibiotics for several days neuro plans for keppra, would like MRI when pt is able to cooperate better Keppra levels pending Encephalopathy continues to be oriented only to self and that is not all the time having visual hallucinations not eating unclear etiology, concerned that he may not recover electrolytes stable, ammonia was only 38 on 02/12, no signs of infection, no seizure activity observed could be combination of alcohol abuse and Ativan being given to limit agitation continue to monitor closely, if no improvement then may need to consider palliative consultation Alcohol abuse concerns for active withdrawal Patient tremulous, mildly diaphoretic, with 2 seizures in the past 24 hours at time of admission -Likely withdrawal seizures, however cannot rule out other causes. -Neuro recommends lamictal, This has been started. getting Ativan bases on AWSS score, could be causing his confusion Patient endorsed on admission daily alcohol intake, at least 10 beers per day but indicates much more and is not observed during the day. Last drink Friday evening 4.5 days prior to admission. Denies history of withdrawal symptoms, but endorses tremor and seizure history as above High risk, admit on AWSS scoring with active Librium protocol Patient with ataxia, without confabulation. Elev MCV. High-dose thiamine regimen (500 3 times daily x1 day, 250 IV x1 day, 100 mg daily) Folic acid daily confusion appears to be clearing, but still having hallucinations--seems less Abd pain-CTAP with nonspecific colitis, cirrhosis, gallstones but no acute kevin noted Monitor Appears improved today Pancytopenia with severe thrombocytopenia WBC 3, hemoglobin 10, platelet 78 Patient with history of mild pancytopenia MCV 103 Suspect combination of nutritional deficiency with direct alcohol toxicity on bone marrow Ambulatory dysfunction Ataxia with superimposed severe deconditioning Multiple falls, up to 11/day. Multiple bruises on patient's torso and legs from falls PT/OT pending given confusion. Alcohol treatment as above, patient will likely need rehab services, may ultimately need placement if he does not improve CThead shows no acute intracranial findings or bleed CAD with PCI Patient with PCI to LAD 11/2018 Continue lisinopril 20 mg, metoprolol 100 mg every morning Patient reports he was stopped on a blood thinner due to his falls but cannot remember why he was on it or what it was for but that he was started on it by his bit gatherer around his heart attack and was stopped from taking it by Dr. Reich. Cardiology notes reviewed, patient was moved from dual aspirin platelet therapy to aspirin monotherapy Aspirin held for severe thrombocytopenia DVT prophylaxis: SCDs Diet: Heart healthy Disposition: PCU CODE STATUS: Full code (2) Fever: (3) SOB (shortness of breath) on exertion: (4) Coronary artery disease: (5) Cirrhosis: (6) Chronic venous insufficiency: (7) Seizure disorder: (8) Portal hypertension: Patient has signs of portal hypertension, given collateral veins. (9) Hypertension: (10) Heavy alcohol use: remains on AWSS (11) Anemia: (12) Ataxia: Admission and Anticipated Discharge Date Admission Date: February 10, 2020 Subjective Concerns overnight of abd pain. No n/v/d, but did have a bowel movement last night. Pt has been more comfortable today. Sleeping mostly, but has been interactive per nursing and aid. Asked for a popsicle and ate most of it. Has had more moments of clarity, but still with occasional hallucinations. Pt received a lot of ativan overnight. Review of Systems Review of Systems: Unable to obtain due to current mental status Physical Exam Constitutional: WD/WN, vitals as above Eyes: normal visual callejas by confrontation and + anicteric sclerae Neck: normal visual inspection and trachea midline Respiratory: normal respiratory effort, lungs clear to auscultation Cardiovascular: Rate/Rhythm: regular rate and regular rhythm Gastrointestinal (Abdomen): Inspection/Auscultation: + abdomen distended Percussion/Palpation: abdomen soft; abdomen nontender Musculoskeletal: Head/Neck/Chest: normocephalic and head atraumatic Skin: no rashes, warm and dry Neurologic: awake and + confused Speech / Cognition: + abnormal speech (mumbling) Psychiatric: Orientation: alert Eye Contact: good eye contact (makes eye contact when spoken to, does not appear agitated) Speech: + abnormal rate/rhythm/volume of speech Affect: + blunted affect Results & Data Results & Data ([facility]) Vital Signs (Past 12 Hours) Vital Signs Temp Pulse Pulse Resp BP Pulse Ox 02/17/20 12:34 37.1 C 77 16 123/78 02/17/20 08:49 36.9 C 84 16 163/94 H 94 02/17/20 08:00 83 02/17/20 03:00 36.7 C 82 18 173/92 H 94 PG Care Time/CCT Total # of Minutes Spent Total Time Spent with Patient: Total time spent is greater than 50% in coordination of care (as documented) at patient's floor/unit and/or counseling patient: Coding Level of Care Code 45162 Subseq Hosp Care Lvl 3 Diagnoses Seizure R56.9 Fever R50.9 Fever type: unspecified SOB (shortness of breath) on exertion R06.02 Coronary artery disease I25.10 Cirrhosis K74.60 Chronic venous insufficiency I87.2 Seizure disorder G40.909 Portal hypertension K76.6 Hypertension I10 Heavy alcohol use Z78.9 Anemia D64.9 Ataxia R27.0 (1) Fever Fever type: unspecified Qualified Code(s): R50.9 - Fever, unspecified
[2020-02-18] MEDS: LORazepam 2 MG/4 ML VIAL IV PRN ×3 (05:11→16:34)
[2020-02-18] MEDS: FOLIC ACID 1 MG TAB PO SCH ×2 (08:28→08:52)
[2020-02-18] MEDS: METOPROLOL SUCC 50MG EXT REL TAB PO SCH ×3 (08:28→10:30)
[2020-02-18] MEDS: THIAMINE HCL 100 MG in SYRINGE 9 ML IV SCH (08:28)
[2020-02-18] MEDS: allopurinoL 300 MG TAB PO SCH ×2 (08:28→08:52)
[2020-02-18] MEDS: lamoTRIgine 100 MG TAB PO SCH ×4 (08:28→23:21)
[2020-02-18] MEDS ORDERED: METOPROLOL TARTRATE 1 MG/ML VIAL IV STA (08:48)
[2020-02-18] MEDS ORDERED: Nursing to Pharmacy Communication SCH (09:00)
[2020-02-18] MEDS ORDERED: levETIRAcetam 250 MG in 0.9 % SODIUM CHLORIDE 100 ML IV ONE (10:30)
[2020-02-18] MEDS: LORazepam 1 MG/2 ML VIAL IV PRN ×2 (13:57→16:00)
--- NOTE | 2020-02-18 14:33 | Hospitalist Progress Note ---
Date of Service February 18, 2020 Assessment & Plan (1) Seizure: Uvaldo Mendez is a 55-year-old male with a past medical history of coronary artery disease with LAD stenting 11/2018, hypertension, seizure disorder 2/2 TBI in 1981, alcohol abuse, and ambulatory dysfunction who presents with 2 s eizures and increasing falls in the previous weeks. Seizure 2/2 seizure disorder with recent cessation of antiepileptic versus alcohol withdrawal Patient with a history of alcohol abuse, ataxia with last drink 4 to 5 days prior to admission. See below. 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 Previously on Lamictal 250 mg every morning, 400 mg every afternoon and Keppra to 50 mg daily Stopped Keppra 6 months ago, patient is a somewhat poor historian and does not remember why this was stopped or if he was advised to stop taking it by physician 2 seizure episodes with tongue biting, tonic-clonic and observed his in the 24 hours prior to admission Admit to PCU, seizure monitoring, no seizure activity since admission no signs of infection, off antibiotics for several days neuro plans for keppra, would like MRI when pt is able to cooperate better Keppra levels pending Encephalopathy continues to be oriented only to self and that is not all the time having visual hallucinations not eating unclear etiology, concerned that he may not recover electrolytes stable, ammonia was only 38 on 02/12, no signs of infection, no seizure activity observed could be combination of alcohol abuse and Ativan being given to limit agitation continue to monitor closely, if no improvement then may need to consider palliative consultation Alcohol abuse concerns for active withdrawal Patient tremulous, mildly diaphoretic, with 2 seizures in the past 24 hours at time of admission -Likely withdrawal seizures, however cannot rule out other causes. -Neuro recommends lamictal, This has been started. getting Ativan bases on AWSS score, could be causing his confusion Patient endorsed on admission daily alcohol intake, at least 10 beers per day but indicates much more and is not observed during the day. Last drink Friday evening 4.5 days prior to admission. Denies history of withdrawal symptoms, but endorses tremor and seizure history as above High risk, admit on AWSS scoring with active Librium protocol Patient with ataxia, without confabulation. Elev MCV. High-dose thiamine regimen (500 3 times daily x1 day, 250 IV x1 day, 100 mg daily) Folic acid daily confusion appears to be clearing, but still having hallucinations--seems less Abd pain-CTAP with nonspecific colitis, cirrhosis, gallstones but no acute kevin noted Monitor Appears improved today Pancytopenia with severe thrombocytopenia WBC 3, hemoglobin 10, platelet 78 Patient with history of mild pancytopenia MCV 103 Suspect combination of nutritional deficiency with direct alcohol toxicity on bone marrow Ambulatory dysfunction Ataxia with superimposed severe deconditioning Multiple falls, up to 11/day. Multiple bruises on patient's torso and legs from falls PT/OT pending given confusion. Alcohol treatment as above, patient will likely need rehab services, may ultimately need placement if he does not improve CThead shows no acute intracranial findings or bleed CAD with PCI Patient with PCI to LAD 11/2018 Continue lisinopril 20 mg, metoprolol 100 mg every morning Patient reports he was stopped on a blood thinner due to his falls but cannot remember why he was on it or what it was for but that he was started on it by his fire control assistant around his heart attack and was stopped from taking it by Dr. Reich. Cardiology notes reviewed, patient was moved from dual aspirin platelet therapy to aspirin monotherapy Aspirin held for severe thrombocytopenia DVT prophylaxis: SCDs Diet: Heart healthy Disposition: PCU CODE STATUS: Full code Attempted to call yesterday and again today without return call, LMOM both days. (2) Fever: (3) SOB (shortness of breath) on exertion: (4) Coronary artery disease: (5) Cirrhosis: (6) Chronic venous insufficiency: (7) Seizure disorder: (8) Portal hypertension: Patient has signs of portal hypertension, given collateral veins. (9) Hypertension: (10) Heavy alcohol use: remains on AWSS (11) Anemia: (12) Ataxia: Admission and Anticipated Discharge Date Admission Date: February 10, 2020 Subjective Pt was refusing AM meds today, later took them. Did eat some breakfast, but not much. Has been attempting to crawl out of bed this afternoon, but was sedated and calm this AM after ativan dosing. Review of Systems Review of Systems: Unable to obtain due to pt not answering some questions Physical Exam Constitutional: WD/WN, vitals as above Eyes: normal visual callejas by confrontation and + anicteric sclerae Neck: normal visual inspection and trachea midline Respiratory: normal respiratory effort, lungs clear to auscultation Cardiovascular: Rate/Rhythm: regular rate and regular rhythm Gastrointestinal (Abdomen): Inspection/Auscultation: + abdomen distended Percussion/Palpation: abdomen soft; abdomen nontender Musculoskeletal: Head/Neck/Chest: normocephalic and head atraumatic Skin: no rashes, warm and dry Neurologic: awake and + confused Speech / Cognition: + abnormal speech (mumbling) Psychiatric: Orientation: alert Eye Contact: good eye contact (makes eye contact when spoken to, does not appear agitated) Speech: + abnormal rate/rhythm/volume of speech Affect: + blunted affect Results & Data Results & Data ([facility]) Vital Signs (Past 12 Hours) Vital Signs Temp Pulse Pulse Resp BP BP Pulse Ox 02/18/20 12:00 37.3 C 69 16 146/84 H 93 02/18/20 08:00 82 02/18/20 07:08 37 C 83 18 162/88 H 95 02/18/20 03:03 36.6 C 84 92 H 165/95 H 92 PG Care Time/CCT Total # of Minutes Spent Total Time Spent with Patient: Total time spent is greater than 50% in coordination of care (as documented) at patient's floor/unit and/or counseling patient: Coding Level of Care Code 11134 Subseq Hosp Care Lvl 3 Diagnoses Seizure R56.9 Fever R50.9 Fever type: unspecified SOB (shortness of breath) on exertion R06.02 Coronary artery disease I25.10 Cirrhosis K74.60 Chronic venous insufficiency I87.2 Seizure disorder G40.909 Portal hypertension K76.6 Hypertension I10 Heavy alcohol use Z78.9 Anemia D64.9 Ataxia R27.0 (1) Fever Fever type: unspecified Qualified Code(s): R50.9 - Fever, unspecified
[2020-02-18] MEDS ORDERED: HALOPERIDOL LACTATE 5 MG/ML 1 ML VIAL IV STA (16:42)
[2020-02-18] MEDS ORDERED: HALOPERIDOL LACTATE 5 MG/ML 1 ML VIAL ONE (16:43)
[2020-02-18 16:44] LABS: Basophils # (auto) 0.07 K/uL (0-0.2); Basophils % (auto) 1.1 %; Eosinophils # (auto) 0.16 K/uL (0-0.5); Eosinophils % (auto) 2.5 %; Hematocrit (blood only) 36.8 % (42-52); Hemoglobin 12.2 g/dL (14.0-18.0); Lymphocytes # (auto) 1.34 K/uL (1.2-3.4); Lymphocytes % (auto) 21.1 %; Mean Corpuscular Hemoglobin 35.1 pg (25-34); Mean Corpuscular Hgb Conc 33.2 g/dL (32-36); Mean Corpuscular Volume 105.7 fL (80-100); Mean Platelet Volume 11.5 fL (7.4-10.4); Monocytes # (auto) 0.82 K/uL (0.11-0.59); Monocytes % (auto) 12.9 %; Neutrophils # (auto) 3.96 K/uL (1.4-6.5); Neutrophils % (auto) 62.4 %; Platelet Count 153 K/uL (130-400); RDW Coefficient of Variation 15.4 % (11.5-14.5); RDW Standard Deviation 59.4 fL (36.4-46.3); Red Blood Count 3.48 M/uL (4.7-6.1); White Blood Count 6.35 K/uL (4.8-10.8)
[2020-02-18 17:00] LABS: Albumin Level 2.5 gm/dl (3.4-5.0); BUN Creatinine Ratio 9.4 (10-20); Bilirubin Direct 1.6 mg/dl (0-0.2); Calcium 8.6 mg/dl (8.5-10.1); Creatinine Clr Calc Pharmacy 103.3 ml/min; Est GFR (African American) 102.6; Est GFR (Non-African American) 88.5; Magnesium 1.7 mg/dl (1.8-2.4); Potassium 3.6 mmol/L (3.5-5.1)
[2020-02-18 17:03] LABS: Bilirubin,Total 2.7 mg/dl (0.2-1); Phosphorus 3.2 mg/dl (2.5-4.9); Total Protein 7.7 gm/dl (6.4-8.2)
[2020-02-18 17:19] LABS: Appearance Urine Cloudy (Clear); Bacteria Urine Automated Negative (Negative); Blood Urine 3+ (Negative); Cast Urine Automated 0 /lpf (0-5); Color Urine Orange; Epithelial Cell Urine Auto 0-5 /lpf (0-5); Glucose Urine UA Negative (Negative); Ketones Urine Negative (Negative); Leukocyte Esterase Urine 1+ (Negative); Nitrite Urine Negative (Negative); Protein Urine Trace (Negative); RBC Urine Automated >30 /hpf (0-4); Specific Gravity Urine 1.018 (1.000-1.030); Urobilinogen Urine Positive (Negative); pH Urine 5.5 (4.5-7.5)
[2020-02-18 17:23] LABS: Bilirubin Urine Negative (Negative); Ictotest Urine Negative (Negative)
[2020-02-18] MEDS: LORazepam 3 MG/6 ML VIAL IV PRN (22:54)
[2020-02-18] MEDS: LACTULOSE 200 GM, WATER, STERILE IRRIG 700 ML, BARCODE IDENTIFIER 1 EA PR SCH (22:56)
[2020-02-18] MEDS: MAGNESIUM OXIDE 400 MG TAB PO SCH (23:21)
[2020-02-19] MEDS: LORazepam 3 MG/6 ML VIAL IV PRN (05:12)
[2020-02-19] MEDS: LACTULOSE 200 GM, WATER, STERILE IRRIG 700 ML, BARCODE IDENTIFIER 1 EA PR SCH (06:18)
[2020-02-19 07:17] LABS: Basophils # (auto) 0.06 K/uL (0-0.2); Basophils % (auto) 1.4 %; Eosinophils # (auto) 0.08 K/uL (0-0.5); Eosinophils % (auto) 1.9 %; Hematocrit (blood only) 35.6 % (42-52); Hemoglobin 11.5 g/dL (14.0-18.0); Lymphocytes # (auto) 0.57 K/uL (1.2-3.4); Lymphocytes % (auto) 13.3 %; Mean Corpuscular Hemoglobin 33.6 pg (25-34); Mean Corpuscular Hgb Conc 32.3 g/dL (32-36); Mean Corpuscular Volume 104.1 fL (80-100); Mean Platelet Volume 11.6 fL (7.4-10.4); Monocytes # (auto) 0.47 K/uL (0.11-0.59); Neutrophils # (auto) 3.09 K/uL (1.4-6.5); Neutrophils % (auto) 72.4 %; Platelet Count 125 K/uL (130-400); RDW Coefficient of Variation 15.4 % (11.5-14.5); RDW Standard Deviation 58.8 fL (36.4-46.3); Red Blood Count 3.42 M/uL (4.7-6.1); White Blood Count 4.27 K/uL (4.8-10.8)
[2020-02-19 07:32] LABS: BUN Creatinine Ratio 10.4 (10-20); Calcium 8.5 mg/dl (8.5-10.1); Creatinine Clr Calc Pharmacy 121.1 ml/min; Est GFR (African American) 114.3; Est GFR (Non-African American) 98.7; Magnesium 1.9 mg/dl (1.8-2.4); Phosphorus 3.1 mg/dl (2.5-4.9); Potassium 3.4 mmol/L (3.5-5.1)
[2020-02-19] MEDS: METOPROLOL SUCC 50MG EXT REL TAB PO SCH (08:00)
[2020-02-19] MEDS: lamoTRIgine 100 MG TAB PO SCH ×2 (08:00→20:05)
[2020-02-19] MEDS: MAGNESIUM OXIDE 400 MG TAB PO SCH ×2 (08:03→20:05)
[2020-02-19] MEDS: allopurinoL 300 MG TAB PO SCH (08:03)
[2020-02-19] MEDS: FOLIC ACID 1 MG TAB PO SCH (08:03)
[2020-02-19] MEDS: THIAMINE HCL 100 MG in SYRINGE 9 ML IV SCH (10:30)
[2020-02-19] MEDS: LACTULOSE SYRUP 20 GM/30 ML UDC PO SCH ×2 (14:16→20:03)
[2020-02-19] MEDS: POTASSIUM CHLORIDE CRTAB 20 MEQ TABCR PO SCH ×2 (14:16→20:04)
[2020-02-19] MEDS: LORazepam 1 MG/2 ML VIAL IV PRN (20:00)
--- NOTE | 2020-02-19 21:57 | Hospitalist Progress Note ---
Date of Service February 19, 2020 Assessment & Plan (1) Seizure: Uvaldo Mendez is a 55-year-old male with a past medical history of coronary artery disease with LAD stenting 11/2018, hypertension, seizure disorder 2/2 TBI in 1981, alcohol abuse, and ambulatory dysfunction who presents with 2 s eizures and increasing falls in the previous weeks. Seizure 2/2 seizure disorder with recent cessation of antiepileptic versus alcohol withdrawal Patient with a history of alcohol abuse, ataxia with last drink 4 to 5 days prior to admission. See below. 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 Previously on Lamictal 250 mg every morning, 400 mg every afternoon and Keppra to 50 mg daily Stopped Keppra 6 months ago, patient is a somewhat poor historian and does not remember why this was stopped or if he was advised to stop taking it by physician 2 seizure episodes with tongue biting, tonic-clonic and observed his in the 24 hours prior to admission Admit to PCU, seizure monitoring, no seizure activity since admission no signs of infection, off antibiotics for several days neuro plans for keppra, would like MRI when pt is able to cooperate better Keppra levels pending Encephalopathy Likely multifactorial with hepatic encephalopathy playing a role Ordered lactolose enema, and ammonia level improved Now placed lactulose oralluy and will monitor. continues to be oriented only to self but improved could be combination of alcohol abuse and Ativan being given to limit agitation continue to monitor closely, if no improvement then may need to consider palliative consultation Alcohol abuse concerns for active withdrawal Patient tremulous, mildly diaphoretic, with 2 seizures in the past 24 hours at time of admission -Likely withdrawal seizures, however cannot rule out other causes. -Neuro recommends lamictal, This has been started. getting Ativan bases on AWSS score, could be causing his confusion Patient endorsed on admission daily alcohol intake, at least 10 beers per day but indicates much more and is not observed during the day. Last drink Friday evening 4.5 days prior to admission. Denies history of withdrawal symptoms, but endorses tremor and seizure history as above High risk, admit on AWSS scoring with active Librium protocol Patient with ataxia, without confabulation. Elev MCV. High-dose thiamine regimen (500 3 times daily x1 day, 250 IV x1 day, 100 mg daily) Folic acid daily confusion appears to be clearing, but still having hallucinations--seems less Abd pain-CTAP with nonspecific colitis, cirrhosis, gallstones but no acute kevin noted Monitor Appears improved today Pancytopenia with severe thrombocytopenia WBC 3, hemoglobin 10, platelet 78 Patient with history of mild pancytopenia MCV 103 Suspect combination of nutritional deficiency with direct alcohol toxicity on bone marrow Ambulatory dysfunction Ataxia with superimposed severe deconditioning Multiple falls, up to 11/day. Multiple bruises on patient's torso and legs from falls PT/OT pending given confusion. Alcohol treatment as above, patient will likely need rehab services, may ultimately need placement if he does not improve CThead shows no acute intracranial findings or bleed CAD with PCI Patient with PCI to LAD 11/2018 Continue lisinopril 20 mg, metoprolol 100 mg every morning Patient reports he was stopped on a blood thinner due to his falls but cannot remember why he was on it or what it was for but that he was started on it by his coil connector repairer around his heart attack and was stopped from taking it by Dr. Reich. Cardiology notes reviewed, patient was moved from dual aspirin platelet therapy to aspirin monotherapy Aspirin held for severe thrombocytopenia DVT prophylaxis: SCDs Diet: Heart healthy Disposition: PCU CODE STATUS: Full code Attempted to call yesterday and again today without return call, LMOM both days. (2) Fever: (3) SOB (shortness of breath) on exertion: (4) Coronary artery disease: (5) Cirrhosis: (6) Chronic venous insufficiency: (7) Seizure disorder: (8) Portal hypertension: Patient has signs of portal hypertension, given collateral veins. (9) Hypertension: (10) Heavy alcohol use: remains on AWSS (11) Anemia: (12) Ataxia: Admission and Anticipated Discharge Date Admission Date: February 10, 2020 Subjective Patient is calmer today. Patient has no new complaints. As per nursing he is taking his medications today and is less confused. No new complaints. Review of Systems Review of Systems: All systems reviewed & are unremarkable except as noted in HPI & below Physical Exam Physical Exam: General: lying in bed comfortably. HEENT: Atraumatic, normocephalic. Pulm: CTAB A&P Symmetrical chest rise. No increase work of breathing. No respiratory distress. Cardiac: RRR, -mrg. Radial pulses intact and symmetrical. Abdominal: distended, ascites is likely present. Nontender. collateral veins noted. extremities: no edema Neuro: CN II-XII intacted Results & Data Results & Data ([facility]) Vital Signs (Past 12 Hours) Vital Signs Temp Pulse Pulse Resp BP BP Pulse Ox 02/19/20 21:40 36.5 C 93 H 20 170/92 H 93 02/19/20 20:08 37.2 C 85 18 165/90 H 95 02/19/20 16:00 36.9 C 77 16 146/82 H 96 02/19/20 11:37 36.9 C 80 18 146/82 H 92 PG Care Time/CCT Total # of Minutes Spent Total Time Spent with Patient: Total time spent is greater than 50% in coordination of care (as documented) at patient's floor/unit and/or counseling patient: Coding Level of Care Code 51887 Subseq Hosp Care Lvl 3 Diagnoses Seizure R56.9 Fever R50.9 Fever type: unspecified SOB (shortness of breath) on exertion R06.02 Coronary artery disease I25.10 Cirrhosis K74.60 Chronic venous insufficiency I87.2 Seizure disorder G40.909 Portal hypertension K76.6 Hypertension I10 Heavy alcohol use Z78.9 Anemia D64.9 Ataxia R27.0 (1) Fever Fever type: unspecified Qualified Code(s): R50.9 - Fever, unspecified
[2020-02-19] MEDS: LORazepam 2 MG/4 ML VIAL IV PRN (22:20)
[2020-02-20] MEDS: LORazepam 2 MG/4 ML VIAL IV PRN (00:52)
[2020-02-20] MEDS: LORazepam 1 MG/2 ML VIAL IV PRN (03:23)
[2020-02-20] MEDS: HALOPERIDOL LACTATE 5 MG/ML 1 ML VIAL IV PRN ×2 (04:23→10:24)
[2020-02-20 09:39] LABS: Hemoglobin 11.2 g/dL (14.0-18.0); Mean Corpuscular Hemoglobin 34.3 pg (25-34); Mean Corpuscular Hgb Conc 32.9 g/dL (32-36); Mean Platelet Volume 11.4 fL (7.4-10.4); Platelet Count 123 K/uL (130-400); RDW Coefficient of Variation 15.4 % (11.5-14.5); RDW Standard Deviation 58.5 fL (36.4-46.3); Red Blood Count 3.27 M/uL (4.7-6.1); White Blood Count 4.76 K/uL (4.8-10.8)
[2020-02-20 09:58] LABS: Albumin Level 2.3 gm/dl (3.4-5.0); BUN Creatinine Ratio 10.8 (10-20); Calcium 8.6 mg/dl (8.5-10.1); Creatinine Clr Calc Pharmacy 120.9 ml/min; Est GFR (African American) 115.5; Est GFR (Non-African American) 99.7; Potassium 3.9 mmol/L (3.5-5.1)
[2020-02-20 10:03] LABS: Albumin Globulin Ratio 0.5 (0.9-2); Bilirubin,Total 2.4 mg/dl (0.2-1); Ferritin 99.3 ng/ml (8-388); Globulin 4.8 gm/dl (2.5-4.0); Total Protein 7.1 gm/dl (6.4-8.2)
[2020-02-20] MEDS: POTASSIUM CHLORIDE CRTAB 20 MEQ TABCR PO SCH ×4 (10:13→20:33)
[2020-02-20] MEDS: LACTULOSE SYRUP 20 GM/30 ML UDC PO SCH ×4 (10:14→20:27)
[2020-02-20] MEDS: allopurinoL 300 MG TAB PO SCH ×2 (10:14→11:01)
[2020-02-20] MEDS: FOLIC ACID 1 MG TAB PO SCH ×2 (10:15→11:00)
[2020-02-20] MEDS: lamoTRIgine 100 MG TAB PO SCH ×3 (10:15→20:33)
[2020-02-20] MEDS: METOPROLOL SUCC 50MG EXT REL TAB PO SCH ×2 (10:16→11:01)
[2020-02-20] MEDS: MAGNESIUM OXIDE 400 MG TAB PO SCH ×3 (10:16→20:33)
[2020-02-20] MEDS: THIAMINE HCL 100 MG in SYRINGE 9 ML IV SCH (10:17)
[2020-02-20] MEDS: lisinopril 10 MG TAB PO SCH (10:59)
--- NOTE | 2020-02-20 11:16 | Hospitalist Progress Note ---
Date of Service February 20, 2020 Assessment & Plan (1) Seizure: Uvaldo Mendez is a 55-year-old male with a past medical history of coronary artery disease with LAD stenting 11/2018, hypertension, seizure disorder 2/2 TBI in 1981, alcohol abuse, and ambulatory dysfunction who presents with 2 s eizures and increasing falls in the previous weeks. Seizure 2/2 seizure disorder with recent cessation of antiepileptic versus alcohol withdrawal Patient with a history of alcohol abuse, ataxia with last drink 4 to 5 days prior to admission. See below. 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 Previously on Lamictal 250 mg every morning, 400 mg every afternoon and Keppra to 50 mg daily Stopped Keppra 6 months ago, patient is a somewhat poor historian and does not remember why this was stopped or if he was advised to stop taking it by physician 2 seizure episodes with tongue biting, tonic-clonic and observed his in the 24 hours prior to admission Admit to PCU, seizure monitoring, no seizure activity since admission no signs of infection, off antibiotics for several days neuro plans for keppra, would like MRI when pt is able to cooperate better Keppra levels pending Encephalopathy Likely multifactorial with hepatic encephalopathy playing a role May also be experiencing effects from withdrawal. However at this point may be beneficial to hold benzos and monitor. will keep them on board but explained to nurse to hold this. Ordered lactolose enema, and ammonia level improved Now placed lactulose orally and will monitor. continues to be oriented only to self but improved could be combination of alcohol abuse and Ativan being given to limit agitation Alcohol abuse concerns for active withdrawal Patient tremulous, mildly diaphoretic, with 2 seizures in the past 24 hours at time of admission -Likely withdrawal seizures, however cannot rule out other causes. -Neuro recommends lamictal, This has been started. getting Ativan bases on AWSS score, could be causing his confusion Patient endorsed on admission daily alcohol intake, at least 10 beers per day but indicates much more and is not observed during the day. Last drink Friday evening 4.5 days prior to admission. Denies history of withdrawal symptoms, but endorses tremor and seizure history as above High risk, admit on AWSS scoring with active Librium protocol Patient with ataxia, without confabulation. Elev MCV. High-dose thiamine regimen (500 3 times daily x1 day, 250 IV x1 day, 100 mg daily) Folic acid daily confusion appears to be clearing, but still having hallucinations--seems less Abd pain-CTAP with nonspecific colitis, cirrhosis, gallstones but no acute kevin noted Monitor Appears improved today Pancytopenia with severe thrombocytopenia WBC 3, hemoglobin 10, platelet 78 Patient with history of mild pancytopenia MCV 103 Suspect combination of nutritional deficiency with direct alcohol toxicity on bone marrow Ambulatory dysfunction Ataxia with superimposed severe deconditioning Multiple falls, up to 11/day. Multiple bruises on patient's torso and legs from falls PT/OT pending given confusion. Alcohol treatment as above, patient will likely need rehab services, may ultimately need placement if he does not improve CThead shows no acute intracranial findings or bleed CAD with PCI Patient with PCI to LAD 11/2018 Continue lisinopril 20 mg, metoprolol 100 mg every morning Patient reports he was stopped on a blood thinner due to his falls but cannot remember why he was on it or what it was for but that he was started on it by his logistics coordinator around his heart attack and was stopped from taking it by Dr. Reich. Cardiology notes reviewed, patient was moved from dual aspirin platelet therapy to aspirin monotherapy Aspirin held for severe thrombocytopenia DVT prophylaxis: SCDs Diet: Heart healthy Disposition: PCU CODE STATUS: Full code Attempted to call yesterday and again today without return call, LMOM both days. (2) Fever: (3) SOB (shortness of breath) on exertion: (4) Coronary artery disease: (5) Cirrhosis: (6) Chronic venous insufficiency: (7) Seizure disorder: (8) Portal hypertension: Patient has signs of portal hypertension, given collateral veins. (9) Hypertension: (10) Heavy alcohol use: remains on AWSS (11) Anemia: (12) Ataxia: Admission and Anticipated Discharge Date Admission Date: February 10, 2020 Subjective Patinet is very consfused today, trying to get out of bed. Review of Systems Review of Systems: All systems reviewed & are unremarkable except as noted in HPI & below Physical Exam Physical Exam: General: lying in bed comfortably. HEENT: Atraumatic, normocephalic. Pulm: CTAB A&P Symmetrical chest rise. No increase work of breathing. No respiratory distress. Cardiac: RRR, -mrg. Radial pulses intact and symmetrical. Abdominal: distended, ascites is likely present. Nontender. collateral veins noted. extremities: no edema Neuro: CN II-XII intacted Results & Data Results & Data ([facility]) Vital Signs (Past 12 Hours) Vital Signs Temp Pulse Pulse Resp BP Pulse Ox 02/20/20 06:43 37 C 91 H 18 180/97 H 93 02/20/20 05:27 85 155/91 H 02/20/20 02:26 89 20 150/89 H 93 02/20/20 00:44 89 20 171/90 H 93 PG Care Time/CCT Total # of Minutes Spent Total Time Spent with Patient: Total time spent is greater than 50% in coordination of care (as documented) at patient's floor/unit and/or counseling patient: Coding Level of Care Code 83440 Subseq Hosp Care Lvl 2 Diagnoses Seizure R56.9 Fever R50.9 Fever type: unspecified SOB (shortness of breath) on exertion R06.02 Coronary artery disease I25.10 Cirrhosis K74.60 Chronic venous insufficiency I87.2 Seizure disorder G40.909 Portal hypertension K76.6 Hypertension I10 Heavy alcohol use Z78.9 Anemia D64.9 Ataxia R27.0 (1) Fever Fever type: unspecified Qualified Code(s): R50.9 - Fever, unspecified
[2020-02-21 08:23] LABS: Hematocrit (blood only) 34.6 % (42-52); Hemoglobin 11.2 g/dL (14.0-18.0); Mean Corpuscular Hemoglobin 33.6 pg (25-34); Mean Corpuscular Hgb Conc 32.4 g/dL (32-36); Mean Corpuscular Volume 103.9 fL (80-100); Mean Platelet Volume 11.3 fL (7.4-10.4); Platelet Count 128 K/uL (130-400); RDW Coefficient of Variation 15.8 % (11.5-14.5); RDW Standard Deviation 59.6 fL (36.4-46.3); Red Blood Count 3.33 M/uL (4.7-6.1); White Blood Count 4.76 K/uL (4.8-10.8)
[2020-02-21 08:52] LABS: Albumin Globulin Ratio 0.5 (0.9-2); Albumin Level 2.3 gm/dl (3.4-5.0); Bilirubin,Total 2.8 mg/dl (0.2-1); Calcium 8.4 mg/dl (8.5-10.1); Est GFR (African American) 117.4; Est GFR (Non-African American) 101.3; Globulin 4.6 gm/dl (2.5-4.0); Potassium 3.8 mmol/L (3.5-5.1); Total Protein 6.9 gm/dl (6.4-8.2)
[2020-02-21] MEDS: allopurinoL 300 MG TAB PO SCH (09:45)
[2020-02-21] MEDS: MAGNESIUM OXIDE 400 MG TAB PO SCH ×2 (09:45→21:45)
[2020-02-21] MEDS: METOPROLOL SUCC 50MG EXT REL TAB PO SCH (09:45)
[2020-02-21] MEDS: POTASSIUM CHLORIDE CRTAB 20 MEQ TABCR PO SCH (09:45)
[2020-02-21] MEDS: FOLIC ACID 1 MG TAB PO SCH (09:46)
[2020-02-21] MEDS: lisinopril 10 MG TAB PO SCH (09:46)
[2020-02-21] MEDS: LACTULOSE SYRUP 20 GM/30 ML UDC PO SCH ×3 (09:46→21:44)
[2020-02-21] MEDS: lamoTRIgine 100 MG TAB PO SCH ×2 (09:46→21:44)
[2020-02-21] MEDS: THIAMINE HCL 100 MG in SYRINGE 9 ML IV SCH (10:04)
--- NOTE | 2020-02-21 23:12 | Hospitalist Progress Note ---
Date of Service February 21, 2020 Assessment & Plan (1) Seizure: Uvaldo Mendez is a 55-year-old male with a past medical history of coronary artery disease with LAD stenting 11/2018, hypertension, seizure disorder 2/2 TBI in 1981, alcohol abuse, and ambulatory dysfunction who presents with 2 s eizures and increasing falls in the previous weeks. Seizure 2/2 seizure disorder with recent cessation of antiepileptic versus alcohol withdrawal Patient with a history of alcohol abuse, ataxia with last drink 4 to 5 days prior to admission. See below. 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 Previously on Lamictal 250 mg every morning, 400 mg every afternoon and Keppra to 50 mg daily Stopped Keppra 6 months ago, patient is a somewhat poor historian and does not remember why this was stopped or if he was advised to stop taking it by physician 2 seizure episodes with tongue biting, tonic-clonic and observed his in the 24 hours prior to admission Admit to PCU, seizure monitoring, no seizure activity since admission no signs of infection, off antibiotics for several days neuro plans for keppra, would like MRI when pt is able to cooperate better Keppra levels pending Encephalopathy Finally showing signs of improvement today. Likely multifactorial with hepatic encephalopathy playing a role May also be experiencing effects from withdrawal. However at this point may be beneficial to hold benzos and monitor. will keep them on board but explained to nurse to hold this. Ordered lactolose enema, and ammonia level improved Now placed lactulose orally and will monitor. could be combination of alcohol abuse and Ativan being given to limit agitation Alcohol abuse concerns for active withdrawal Patient tremulous, mildly diaphoretic, with 2 seizures in the past 24 hours at time of admission -Likely withdrawal seizures, however cannot rule out other causes. -Neuro recommends lamictal, This has been started. getting Ativan bases on AWSS score, could be causing his confusion Patient endorsed on admission daily alcohol intake, at least 10 beers per day but indicates much more and is not observed during the day. Last drink Friday evening 4.5 days prior to admission. Denies history of withdrawal symptoms, but endorses tremor and seizure history as above High risk, admit on AWSS scoring with active Librium protocol Patient with ataxia, without confabulation. Elev MCV. High-dose thiamine regimen (500 3 times daily x1 day, 250 IV x1 day, 100 mg daily) Folic acid daily confusion appears to be clearing, but still having hallucinations--seems less Abd pain-CTAP with nonspecific colitis, cirrhosis, gallstones but no acute kevin noted Monitor Appears improved today Pancytopenia with severe thrombocytopenia WBC 3, hemoglobin 10, platelet 78 Patient with history of mild pancytopenia MCV 103 Suspect combination of nutritional deficiency with direct alcohol toxicity on bone marrow Ambulatory dysfunction Ataxia with superimposed severe deconditioning Multiple falls, up to 11/day. Multiple bruises on patient's torso and legs from falls PT/OT pending given confusion. Alcohol treatment as above, patient will likely need rehab services, may ultimately need placement if he does not improve CThead shows no acute intracranial findings or bleed CAD with PCI Patient with PCI to LAD 11/2018 Continue lisinopril 20 mg, metoprolol 100 mg every morning Patient reports he was stopped on a blood thinner due to his falls but cannot remember why he was on it or what it was for but that he was started on it by his spinner box around his heart attack and was stopped from taking it by Dr. Reich. Cardiology notes reviewed, patient was moved from dual aspirin platelet therapy to aspirin monotherapy Aspirin held for severe thrombocytopenia DVT prophylaxis: SCDs Diet: Heart healthy Disposition: PCU CODE STATUS: Full code Attempted to call yesterday and again today without return call, LMOM both days. (2) Fever: (3) SOB (shortness of breath) on exertion: (4) Coronary artery disease: (5) Cirrhosis: (6) Chronic venous insufficiency: (7) Seizure disorder: (8) Portal hypertension: Patient has signs of portal hypertension, given collateral veins. (9) Hypertension: (10) Heavy alcohol use: remains on AWSS (11) Anemia: (12) Ataxia: Admission and Anticipated Discharge Date Admission Date: February 10, 2020 Subjective Patient is more awake and calm, but is a poor historian. Review of Systems Review of Systems: Unobtainable due to cognitive status Physical Exam Physical Exam: General: lying in bed comfortably. HEENT: Atraumatic, normocephalic. Pulm: CTAB A&P Symmetrical chest rise. No increase work of breathing. No respiratory distress. Cardiac: RRR, -mrg. Radial pulses intact and symmetrical. Abdominal: distended, ascites is likely present. Nontender. collateral veins noted. extremities: no edema Neuro: CN II-XII intacted Results & Data Results & Data ([facility]) Vital Signs (Past 12 Hours) Vital Signs Temp Pulse Resp BP Pulse Ox 02/21/20 16:00 36.7 C 88 18 133/76 93 PG Care Time/CCT Total # of Minutes Spent Total Time Spent with Patient: Total time spent is greater than 50% in coordination of care (as documented) at patient's floor/unit and/or counseling patient: Coding Level of Care Code 82139 Subseq Hosp Care Lvl 2 Diagnoses Seizure R56.9 Fever R50.9 Fever type: unspecified SOB (shortness of breath) on exertion R06.02 Coronary artery disease I25.10 Cirrhosis K74.60 Chronic venous insufficiency I87.2 Seizure disorder G40.909 Portal hypertension K76.6 Hypertension I10 Heavy alcohol use Z78.9 Anemia D64.9 Ataxia R27.0 Time Spent (min) 25 (1) Fever Fever type: unspecified Qualified Code(s): R50.9 - Fever, unspecified
[2020-02-22] MEDS: LACTULOSE SYRUP 20 GM/30 ML UDC PO SCH ×3 (09:45→20:21)
[2020-02-22] MEDS: FOLIC ACID 1 MG TAB PO SCH (09:46)
[2020-02-22] MEDS: lisinopril 10 MG TAB PO SCH (09:47)
[2020-02-22] MEDS: lamoTRIgine 100 MG TAB PO SCH ×2 (09:49→20:19)
[2020-02-22] MEDS: allopurinoL 300 MG TAB PO SCH (09:49)
[2020-02-22] MEDS: METOPROLOL SUCC 50MG EXT REL TAB PO SCH (09:49)
[2020-02-22] MEDS: MAGNESIUM OXIDE 400 MG TAB PO SCH ×2 (09:50→20:20)
[2020-02-22] MEDS: THIAMINE HCL 100 MG in SYRINGE 9 ML IV SCH (09:50)
[2020-02-22] MEDS: LORazepam 1 MG/2 ML VIAL IV PRN (21:49)
--- NOTE | 2020-02-22 22:31 | Hospitalist Progress Note ---
Date of Service February 22, 2020 Assessment & Plan (1) Seizure: Uvaldo Mendez is a 55-year-old male with a past medical history of coronary artery disease with LAD stenting 11/2018, hypertension, seizure disorder 2/2 TBI in 1981, alcohol abuse, and ambulatory dysfunction who presents with 2 seizures and increasing falls in the previous weeks. Seizure 2/2 seizure disorder with recent cessation of antiepileptic versus alcohol withdrawal Patient with a history of alcohol abuse, ataxia with last drink 4 to 5 days prior to admission. See below. 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 Previously on Lamictal 250 mg every morning, 400 mg every afternoon and Keppra to 50 mg daily Stopped Keppra 6 months ago, patient is a somewhat poor historian and does not remember why this was stopped or if he was advised to stop taking it by physician 2 seizure episodes with tongue biting, tonic-clonic and observed his in the 24 hours prior to admission Admit to PCU, seizure monitoring, no seizure activity since admission no signs of infection, off antibiotics for several days neuro plans for keppra, would like MRI when pt is able to cooperate better Keppra levels pending Encephalopathy Patient has been waxing and waning while here. Likely multifactorial with hepatic encephalopathy playing a role May also be experiencing effects from withdrawal. Eventhouh trying to hold benzos, will continue to order Once lactulose has been ordered, ammonia level improve could be combination of alcohol abuse/ withdrawal and Ativan being given to limit agitation Alcohol abuse concerns for active withdrawal Patient tremulous, mildly diaphoretic, with 2 seizures in the past 24 hours at time of admission -Likely withdrawal seizures, however cannot rule out other causes. -Neuro recommends lamictal, This has been started. getting Ativan bases on AWSS score, could be causing his confusion Patient endorsed on admission daily alcohol intake, at least 10 beers per day but indicates much more and is not observed during the day. Last drink Friday evening 4.5 days prior to admission. Denies history of withdrawal symptoms, but endorses tremor and seizure history as above High risk, admit on AWSS scoring with active Librium protocol Patient with ataxia, without confabulation. Elev MCV. High-dose thiamine regimen (500 3 times daily x1 day, 250 IV x1 day, 100 mg daily) Folic acid daily confusion appears to be clearing, but still having hallucinations--seems less Abd pain-CTAP with nonspecific colitis, cirrhosis, gallstones but no acute kevin noted Monitor Appears improved today Pancytopenia with severe thrombocytopenia WBC 3, hemoglobin 10, platelet 78 Patient with history of mild pancytopenia MCV 103 Suspect combination of nutritional deficiency with direct alcohol toxicity on bone marrow Ambulatory dysfunction Ataxia with superimposed severe deconditioning Multiple falls, up to 11/day. Multiple bruises on patient's torso and legs from falls PT/OT pending given confusion. Alcohol treatment as above, patient will likely need rehab services, may ultimately need placement if he does not improve CThead shows no acute intracranial findings or bleed CAD with PCI Patient with PCI to LAD 11/2018 Continue lisinopril 20 mg, metoprolol 100 mg every morning Patient reports he was stopped on a blood thinner due to his falls but cannot remember why he was on it or what it was for but that he was started on it by his twisting department end finder around his heart attack and was stopped from taking it by Dr. eRich. Cardiology notes reviewed, patient was moved from dual aspirin platelet therapy to aspirin monotherapy Aspirin held for severe thrombocytopenia DVT prophylaxis: SCDs Diet: Heart healthy Disposition: PCU CODE STATUS: Full code Attempted to call yesterday and again today without return call (2) Fever: (3) SOB (shortness of breath) on exertion: (4) Coronary artery disease: (5) Cirrhosis: (6) Chronic venous insufficiency: (7) Seizure disorder: (8) Portal hypertension: Patient has signs of portal hypertension, given collateral veins. (9) Hypertension: (10) Heavy alcohol use: remains on AWSS (11) Anemia: (12) Ataxia: Admission and Anticipated Discharge Date Admission Date: February 10, 2020 Subjective Patient does not verbalize complaints. Spoke to nurse and explained that he has been relatively calm today but does not make sense. And he appears to be hallucinating seeing a chicken outside the window. Review of Systems Review of Systems: All systems reviewed & are unremarkable except as noted in HPI & below Physical Exam Physical Exam: General: lying in bed comfortably. HEENT: Atraumatic, normocephalic. Pulm: CTAB A&P Symmetrical chest rise. No increase work of breathing. No respiratory distress. Cardiac: RRR, -mrg. Radial pulses intact and symmetrical. Abdominal: distended, ascites is likely present. Nontender. collateral veins noted. extremities: no edema Neuro: CN II-XII intacted Results & Data Results & Data ([facility]) Vital Signs (Past 12 Hours) Vital Signs Temp Pulse Resp BP Pulse Ox 02/22/20 19:58 37.2 C 80 19 152/84 H 93 02/22/20 16:58 37.4 C 83 18 138/79 94 PG Care Time/CCT Total # of Minutes Spent Total Time Spent with Patient: Total time spent is greater than 50% in coordination of care (as documented) at patient's floor/unit and/or counseling patient: Coding Level of Care Code 65894 Subseq Hosp Care Lvl 2 Diagnoses Seizure R56.9 Fever R50.9 Fever type: unspecified SOB (shortness of breath) on exertion R06.02 Coronary artery disease I25.10 Cirrhosis K74.60 Chronic venous insufficiency I87.2 Seizure disorder G40.909 Portal hypertension K76.6 Hypertension I10 Heavy alcohol use Z78.9 Anemia D64.9 Ataxia R27.0 (1) Fever Fever type: unspecified Qualified Code(s): R50.9 - Fever, unspecified
[2020-02-23] MEDS ORDERED: traZODone HCL 100 MG TAB PO ONE (02:56)
[2020-02-23] MEDS ORDERED: LORazepam 1 MG/2 ML VIAL IV STA (05:29)
[2020-02-23] MEDS: LORazepam 1 MG/2 ML VIAL IV PRN ×2 (08:01→14:31)
[2020-02-23] MEDS: THIAMINE HCL 100 MG in SYRINGE 9 ML IV SCH (08:49)
[2020-02-23] MEDS: FOLIC ACID 1 MG TAB PO SCH (08:50)
[2020-02-23] MEDS: METOPROLOL SUCC 50MG EXT REL TAB PO SCH (08:50)
[2020-02-23] MEDS: lamoTRIgine 100 MG TAB PO SCH ×2 (08:50→20:20)
[2020-02-23] MEDS: MAGNESIUM OXIDE 400 MG TAB PO SCH ×2 (08:50→20:20)
[2020-02-23] MEDS: LACTULOSE SYRUP 20 GM/30 ML UDC PO SCH ×3 (08:51→20:22)
[2020-02-23] MEDS: allopurinoL 300 MG TAB PO SCH (08:51)
[2020-02-23] MEDS: lisinopril 10 MG TAB PO SCH (08:51)
--- NOTE | 2020-02-23 09:43 | Hospitalist Progress Note ---
Date of Service February 23, 2020 Assessment & Plan (1) Hepatic encephalopathy: Patient was admitted initlaly for seizures and alcohol withdrawal. However patient has remained confused over course of his hopsital stay. Patient has multiple factors that could be in play: alcohol withdrawl sometimes can have a slow recovery in regards to mental status. Possibly wernicke's encephalopathy given his poor nutrition and unbalanced gait. Also his ammonia was elevated during this hospital stay. Could even be somewhat iatrogenic from his benzo's He has required lower doses of benzos over the past few days, and in past 24 hours, had 2 mg of IV ativan. Yesterday he was hallucinating. 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 will increase thiamine dose to 500 mg to treat for possible Wernicke Encephalopathy Also ordered paracenthesis to rule out SBP This was cancelled as patient was agitated. (2) Seizure: Uvaldo Mendez is a 55-year-old male with a past medical history of coronary artery disease with LAD stenting 11/2018, hypertension, seizure disorder 2/2 TBI in 1981, alcohol abuse, and ambulatory dysfunction who presents with 2 seizures and increasing falls in the previous weeks. Seizure 2/2 seizure disorder with recent cessation of antiepileptic versus alcohol withdrawal Patient with a history of alcohol abuse, ataxia with last drink 4 to 5 days prior to admission. See below. 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 Previously on Lamictal 250 mg every morning, 400 mg every afternoon and Keppra to 50 mg daily Stopped Keppra 6 months ago, patient is a somewhat poor historian and does not remember why this was stopped or if he was advised to stop taking it by physician 2 seizure episodes with tongue biting, tonic-clonic and observed his in the 24 hours prior to admission Admit to PCU, seizure monitoring, no seizure activity since admission no signs of infection, off antibiotics for several days neuro plans for keppra, would like MRI when pt is able to cooperate better Keppra levels pending Abd pain-CTAP with nonspecific colitis, cirrhosis, gallstones but no acute kevin noted Monitor Appears improved today Pancytopenia with severe thrombocytopenia Resolved initially: WBC 3, hemoglobin 10, platelet 78 Patient with history of mild pancytopenia MCV 103 Suspect combination of nutritional deficiency with direct alcohol toxicity on bone marrow Ambulatory dysfunction Ataxia with superimposed severe deconditioning Multiple falls, up to 11/day. Multiple bruises on patient's torso and legs from falls PT/OT pending given confusion. Alcohol treatment as above, patient will likely need rehab services, may ultimately need placement if he does not improve CThead shows no acute intracranial findings or bleed CAD with PCI Patient with PCI to LAD 11/2018 Continue lisinopril 20 mg, metoprolol 100 mg every morning Patient reports he was stopped on a blood thinner due to his falls but cannot remember why he was on it or what it was for but that he was started on it by his bounty hunter around his heart attack and was stopped from taking it by Dr. Reich. Cardiology notes reviewed, patient was moved from dual aspirin platelet therapy to aspirin monotherapy Aspirin held for severe thrombocytopenia DVT prophylaxis: SCDs Diet: Heart healthy Disposition: PCU CODE STATUS: Full code Attempted to call yesterday and again today without return call (3) Fever: (4) SOB (shortness of breath) on exertion: (5) Coronary artery disease: (6) Cirrhosis: Maddrey score is below 32. MELD IS 16. 6% mortality in 3 months. (7) Chronic venous insufficiency: (8) Seizure disorder: as stated above. (9) Portal hypertension: Patient has signs of portal hypertension, given collateral veins. (10) Hypertension: (11) Heavy alcohol use: remains on AWSS Alcohol abuse concerns for active withdrawal Patient tremulous, mildly diaphoretic, with 2 seizures in the past 24 hours at time of admission -Likely withdrawal seizures, however cannot rule out other causes. -Neuro recommends lamictal, This has been started. getting Ativan bases on AWSS score, could be causing his confusion Patient endorsed on admission daily alcohol intake, at least 10 beers per day but indicates much more and is not observed during the day. Last drink Friday evening 4.5 days prior to admission. Denies history of withdrawal symptoms, but endorses tremor and seizure history as above High risk, admit on AWSS scoring with active Librium protocol Patient with ataxia, without confabulation. Elev MCV. High-dose thiamine regimen (500 3 times daily x1 day, 250 IV x1 day, 100 mg daily) Folic acid daily confusion appears to be clearing, but still having hallucinations--seems less (12) Anemia: (13) Ataxia: From cirrhosis Admission and Anticipated Discharge Date Admission Date: February 10, 2020 Subjective Patient appears to have been agitated overnight and required a one time dose of ativan 1mg. This morning, patient was trying to get out of bed and required another dose of ativan 1 mg. Had discussion with Bárbara, who reports he has been declining slowly over time. He has poor nutirion and requires 2 canes to walk at home. She also confirms he has had poor nutrition and mainly only drinks. Review of Systems Review of Systems: Unobtainable due to cognitive status Physical Exam Physical Exam: General: lying in bed comfortably. HEENT: Atraumatic, normocephalic. Pulm: CTAB A&P Symmetrical chest rise. No increase work of breathing. No respiratory distress. Cardiac: RRR, -mrg. Radial pulses intact and symmetrical. Abdominal: distended, ascites is likely present. Nontender. collateral veins noted. extremities: no edema Neuro: CN II-XII intacted Results & Data Results & Data ([facility]) Vital Signs (Past 12 Hours) Vital Signs Temp Pulse Resp BP Pulse Ox 02/22/20 23:00 37.2 C 86 18 144/84 H 91 PG Care Time/CCT Total # of Minutes Spent Total Time Spent with Patient: Total time spent is greater than 50% in coordination of care (as documented) at patient's floor/unit and/or counseling patient: Coding Level of Care Code 77510 Subseq Hosp Care Lvl 3 Diagnoses Hepatic encephalopathy K72.90 Seizure R56.9 Fever R50.9 Fever type: unspecified SOB (shortness of breath) on exertion R06.02 Coronary artery disease I25.10 Cirrhosis K74.60 Chronic venous insufficiency I87.2 Seizure disorder G40.909 Portal hypertension K76.6 Hypertension I10 Heavy alcohol use Z78.9 Anemia D64.9 Ataxia R27.0 (1) Fever Fever type: unspecified Qualified Code(s): R50.9 - Fever, unspecified
[2020-02-23 10:56] LABS: Basophils # (auto) 0.07 K/uL (0-0.2); Basophils % (auto) 1.3 %; Eosinophils # (auto) 0.11 K/uL (0-0.5); Eosinophils % (auto) 2.1 %; Hematocrit (blood only) 33.8 % (42-52); Hemoglobin 10.9 g/dL (14.0-18.0); Immature Granulocytes # (auto) 0.01 K/uL (0.00-0.02); Immature Granulocytes % (auto) 0.2 %; Lymphocytes # (auto) 0.74 K/uL (1.2-3.4); Lymphocytes % (auto) 14.1 %; Mean Corpuscular Hemoglobin 33.2 pg (25-34); Mean Corpuscular Hgb Conc 32.2 g/dL (32-36); Mean Platelet Volume 11.5 fL (7.4-10.4); Monocytes % (auto) 9.5 %; Neutrophils # (auto) 3.82 K/uL (1.4-6.5); Neutrophils % (auto) 72.8 %; Platelet Count 146 K/uL (130-400); RDW Coefficient of Variation 15.5 % (11.5-14.5); RDW Standard Deviation 58.2 fL (36.4-46.3); Red Blood Count 3.28 M/uL (4.7-6.1); White Blood Count 5.25 K/uL (4.8-10.8)
[2020-02-23 11:06] LABS: INR 1.6 (0.9-1.1)
[2020-02-23 11:31] LABS: Albumin Level 2.3 gm/dl (3.4-5.0); BUN Creatinine Ratio 12.9 (10-20); Creatinine Clr Calc Pharmacy 126.7 ml/min; Est GFR (Non-African American) 101.8; Potassium 3.8 mmol/L (3.5-5.1)
[2020-02-23 11:34] LABS: Albumin Globulin Ratio 0.5 (0.9-2); Bilirubin,Total 2.9 mg/dl (0.2-1); Globulin 4.8 gm/dl (2.5-4.0); Total Protein 7.1 gm/dl (6.4-8.2)
[2020-02-23] MEDS: THIAMINE HCL 500 MG in SODIUM CHLORIDE 0.9% 50 ML IV SCH ×2 (12:38→13:24)
[2020-02-23] MEDS: THIAMINE HCL 500 MG in 0.9 % SODIUM CHLORIDE 100 ML IV SCH ×2 (13:23→20:20)
[2020-02-23] MEDS ORDERED: traZODone HCL 100 MG TAB PO SCH (21:00)
[2020-02-23] MEDS: LORazepam 2 MG/4 ML VIAL IV PRN (21:37)
[2020-02-23] MEDS ORDERED: HALOPERIDOL LACTATE 5 MG/ML 1 ML VIAL IM PRN (23:04)
[2020-02-24] MEDS: THIAMINE HCL 500 MG in 0.9 % SODIUM CHLORIDE 100 ML IV SCH ×3 (04:06→19:58)
[2020-02-24] MEDS: LORazepam 2 MG/4 ML VIAL IV PRN (04:39)
[2020-02-24 07:34] LABS: Hematocrit (blood only) 35.5 % (42-52); Hemoglobin 11.2 g/dL (14.0-18.0); Mean Corpuscular Hemoglobin 32.8 pg (25-34); Mean Corpuscular Hgb Conc 31.5 g/dL (32-36); Mean Corpuscular Volume 104.1 fL (80-100); Mean Platelet Volume 11.9 fL (7.4-10.4); Platelet Count 140 K/uL (130-400); RDW Coefficient of Variation 15.4 % (11.5-14.5); RDW Standard Deviation 58.6 fL (36.4-46.3); Red Blood Count 3.41 M/uL (4.7-6.1); White Blood Count 4.55 K/uL (4.8-10.8)
[2020-02-24 07:45] LABS: INR 1.5 (0.9-1.1); Prothrombin Time 15.8 Seconds (9.0-12.0)
[2020-02-24 08:00] LABS: Est GFR (African American) 116.1; Est GFR (Non-African American) 100.2; Potassium 3.4 mmol/L (3.5-5.1)
[2020-02-24 08:01] LABS: Albumin Level 2.4 gm/dl (3.4-5.0); BUN Creatinine Ratio 11.4 (10-20); Calcium 8.4 mg/dl (8.5-10.1); Creatinine Clr Calc Pharmacy 121.8 ml/min
[2020-02-24 08:03] LABS: Albumin Globulin Ratio 0.5 (0.9-2); Bilirubin,Total 2.9 mg/dl (0.2-1); Globulin 4.8 gm/dl (2.5-4.0); Total Protein 7.2 gm/dl (6.4-8.2)
[2020-02-24] MEDS: LACTULOSE SYRUP 20 GM/30 ML UDC PO SCH ×3 (11:08→19:59)
[2020-02-24] MEDS: FOLIC ACID 1 MG TAB PO SCH (11:26)
[2020-02-24] MEDS: MAGNESIUM OXIDE 400 MG TAB PO SCH ×2 (11:26→20:06)
[2020-02-24] MEDS: METOPROLOL SUCC 50MG EXT REL TAB PO SCH (11:26)
[2020-02-24] MEDS: lamoTRIgine 100 MG TAB PO SCH ×2 (11:26→20:01)
[2020-02-24] MEDS: lisinopril 10 MG TAB PO SCH (11:27)
[2020-02-24] MEDS: allopurinoL 300 MG TAB PO SCH (11:27)
[2020-02-24] MEDS: HALOPERIDOL LACTATE 5 MG/ML 1 ML VIAL IM PRN ×2 (14:01→19:53)
--- NOTE | 2020-02-24 14:17 | Hospitalist Progress Note ---
Date of Service February 24, 2020 Assessment & Plan (1) Hepatic encephalopathy: Patient was admitted initially for seizures and alcohol withdrawal. However patient has remained confused over course of his hospital stay. Ddx includes continued alcohol withdrawal, iatrogenic, seizures. - Continue thiamine 500 mg IV Q8h for possible Wernicke-Korsakoff - Will discuss with neurology. (2) Seizure: Seizure 2/2 seizure disorder with recent cessation of antiepileptic versus alcohol withdrawal. Patient with a history of alcohol abuse, ataxia with last drink 4 to 5 days prior to admission. 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 Previously on Lamictal 250 mg every morning, 400 mg every afternoon and Keppra 250 mg daily. Stopped Keppra 6 months ago, patient is a somewhat poor historian and does not remember why this was stopped or if he was advised to stop taking it by physician. - Presently only on lamotrigine 100 mg PO BID with multiple missed doses due to agitation. (3) Coronary artery disease: Patient with PCI to LAD 11/2018. Continue lisinopril 10 mg, metoprolol XL 100 mg every morning Aspirin initially held for severe thrombocytopenia (4) Cirrhosis: CT a/p on 02/16 showed cirrhotic-appearing liver. Given known alcoholism, thought to have alcoholic cirrhosis. - MELD-Na score is 15, giving him a 6% 3-month mortality. - Continue lactulose to aim for 3-4 BMs per day. (5) Hypertension: BP today is 130/75. - Continue lisinopril & metoprolol as able. (6) Heavy alcohol use: Per patient and , drinking at least 10 drinks/day. - Remains on AWSS. - Continue folic acid and thiamine - Presently agitated or asleep. (7) Anemia: Likely bone marrow suppression from alcohol. - Stable today. (8) DVT prophylaxis: Heparin 5,000 units SQ Q12h Admission and Anticipated Discharge Date Admission Date: February 10, 2020 Subjective Unable to answer questions. Review of Systems Review of Systems: Unobtainable due to cognitive status Physical Exam Constitutional: + acute distress and + disheveled Eyes: EOM intact bilaterally; no conjunctival abnormality ENMT: external ear and nose normal, oropharynx normal Neck: trachea midline, no thyromegaly normal visual inspection Respiratory: normal respiratory effort, lungs clear to auscultation no respiratory distress Cardiovascular: RRR, no murmur, no edema Gastrointestinal (Abdomen): Inspection/Auscultation: abdomen normal to inspection and normal bowel sounds; abdomen not distended Percussion/Palpation: abdomen soft; abdomen nontender, no guarding, abdomen not rigid and no ascites Musculoskeletal: no cyanosis or clubbing, extremities motor strength 5/5 Skin: no rashes, warm and dry Neurologic: moves all extremities and + obtunded; + not awake Psychiatric: Orientation: + not alert and + uncooperative Results & Data Results & Data ([facility]) Vital Signs (Past 12 Hours) Vital Signs Temp Pulse Resp BP Pulse Ox 02/24/20 06:51 36.5 C 83 18 131/75 93 PG Care Time/CCT Total # of Minutes Spent Total Time Spent with Patient: Total time spent is greater than 50% in coordination of care (as documented) at patient's floor/unit and/or counseling patient: Coding Level of Care Code 66757 Subseq Hosp Care Lvl 3 Diagnoses Hepatic encephalopathy K72.90 Seizure R56.9 Coronary artery disease I25.10 Cirrhosis K74.60 Hypertension I10 Heavy alcohol use Z78.9 Anemia D64.9 DVT prophylaxis Z29.9
[2020-02-24] MEDS: HEPARIN SOD 5,000 UNIT/0.5 ML VIAL SQ SCH (20:00)
[2020-02-25] MEDS: THIAMINE HCL 500 MG in 0.9 % SODIUM CHLORIDE 100 ML IV SCH ×3 (05:26→21:06)
[2020-02-25 07:06] LABS: Hematocrit (blood only) 35.4 % (42-52); Hemoglobin 11.3 g/dL (14.0-18.0); Mean Corpuscular Hemoglobin 33.5 pg (25-34); Mean Corpuscular Hgb Conc 31.9 g/dL (32-36); Mean Platelet Volume 11.4 fL (7.4-10.4); Platelet Count 133 K/uL (130-400); RDW Coefficient of Variation 15.5 % (11.5-14.5); RDW Standard Deviation 60.1 fL (36.4-46.3); Red Blood Count 3.37 M/uL (4.7-6.1); White Blood Count 4.04 K/uL (4.8-10.8)
[2020-02-25 07:23] LABS: INR 1.4 (0.9-1.1)
[2020-02-25 07:38] LABS: Albumin Level 2.3 gm/dl (3.4-5.0); BUN Creatinine Ratio 12.8 (10-20); Calcium 8.6 mg/dl (8.5-10.1); Creatinine Clr Calc Pharmacy 115.9 ml/min; Est GFR (African American) 113.8; Est GFR (Non-African American) 98.2
[2020-02-25 07:44] LABS: Albumin Globulin Ratio 0.5 (0.9-2); Bilirubin,Total 2.6 mg/dl (0.2-1); Globulin 4.9 gm/dl (2.5-4.0); Total Protein 7.2 gm/dl (6.4-8.2)
[2020-02-25] MEDS: lamoTRIgine 100 MG TAB PO SCH ×3 (09:03→21:00)
[2020-02-25] MEDS ORDERED: levETIRAcetam 1,000 MG in 0.9 % SODIUM CHLORIDE 100 ML IV STA (09:04)
[2020-02-25] MEDS: LACTULOSE SYRUP 20 GM/30 ML UDC PO SCH ×3 (09:07→20:57)
[2020-02-25] MEDS: allopurinoL 300 MG TAB PO SCH (09:12)
[2020-02-25] MEDS: MAGNESIUM OXIDE 400 MG TAB PO SCH ×2 (09:12→21:00)
[2020-02-25] MEDS: FOLIC ACID 1 MG TAB PO SCH (09:12)
[2020-02-25] MEDS: lisinopril 10 MG TAB PO SCH (09:12)
[2020-02-25] MEDS: METOPROLOL SUCC 50MG EXT REL TAB PO SCH (09:12)
[2020-02-25] MEDS: HEPARIN SOD 5,000 UNIT/0.5 ML VIAL SQ SCH ×2 (09:12→20:57)
[2020-02-25] MEDS: ASPIRIN 81 MG ECTAB PO SCH (09:12)
--- NOTE | 2020-02-25 10:16 | Ultrasound Report ---
ULTRASOUND ASCITES CHECK CLINICAL HISTORY: Abdominal ascites. COMPARISON STUDY: Abdominal CT dated 02/17/2020. FINDINGS: Real-time grayscale portable ultrasound of all 4 quadrants of the abdomen is performed to a ssess for abdominal ascites. There is a small volume of abdominopelvic ascites. Cirrhotic liver morph ology is noted. IMPRESSION: There is a small volume of abdominopelvic ascites. This is insufficient for paracentesis. Electronically signed by: Mike Jay M.D. 02/25/2020 10:15 AM
--- NOTE | 2020-02-25 10:22 | XRay Report ---
XR chest 1V portable CLINICAL HISTORY: Hypoxemia COMPARISON STUDY: 02/10/2020 FINDINGS: The study is rotated. There is aortic tortuosity/ectasia. There is no lobar consolidation. There are low lung volumes. There is a calcified granuloma within the left upper lung zone.[There are no significant pleural effusions. There is an old right-sided rib fracture. IMPRESSION: 1. Rotated study 2. Aortic tortuosity/ectasia 3. Low lung volumes. No evidence of lobar consolidation ACT 112: Negative or not required by law. Electronically signed by: Rahul Rodriguez M.D. 02/25/2020 10:20 AM
--- NOTE | 2020-02-25 14:54 | Hospitalist Progress Note ---
Date of Service February 25, 2020 Assessment & Plan (1) Hepatic encephalopathy: Patient was admitted initially for seizures and alcohol withdrawal. However patient has remained confused over course of his hospital stay. Ddx includes continued alcohol withdrawal, iatrogenic, seizures. - Continue thiamine 500 mg IV Q8h for possible Wernicke-Korsakoff - Discussed with neurology - Because he is inconsistently taking his lamotrigine, we will start Keppra 1000 mg IV then 500 mg IV BID. Also focus on lactulose and try to resolve any hepatic encephalopathy. (2) Seizure: Seizure 2/2 seizure disorder with recent cessation of antiepileptic versus alcohol withdrawal. Patient with a history of alcohol abuse, ataxia with last drink 4 to 5 days prior to admission. 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 Previously on Lamictal 250 mg every morning, 400 mg every afternoon and Keppra 250 mg daily. Stopped Keppra 6 months ago, patient is a somewhat poor historian and does not remember why this was stopped or if he was advised to stop taking it by physician. - Presently on lamotrigine 150 mg PO BID with multiple missed doses due to agitation. - Keppra as above (3) Coronary artery disease: Patient with PCI to LAD 11/2018. Continue lisinopril 10 mg, metoprolol XL 100 mg every morning Aspirin initially held for severe thrombocytopenia; restart now. (4) Cirrhosis: CT a/p on 02/16 showed cirrhotic-appearing liver. Given known alcoholism, thought to have alcoholic cirrhosis. - MELD-Na score is 15, giving him a 6% 3-month mortality. - Continue lactulose to aim for 3-4 BMs per day. (5) Hypertension: BP today is 150/90. - Continue lisinopril & metoprolol as able. (6) Heavy alcohol use: Per patient and , drinking at least 10 drinks/day. - Remains on AWSS. - Continue folic acid and thiamine - Presently agitated or asleep. (7) Anemia: Likely bone marrow suppression from alcohol. - Stable today. (8) DVT prophylaxis: Heparin 5,000 units SQ Q12h Admission and Anticipated Discharge Date Admission Date: February 10, 2020 Subjective Unresponsive today. Review of Systems Review of Systems: Unobtainable due to cognitive status Physical Exam Constitutional: + acute distress and + disheveled Eyes: EOM intact bilaterally; no conjunctival abnormality ENMT: external ear and nose normal, oropharynx normal Neck: trachea midline, no thyromegaly normal visual inspection Respiratory: normal respiratory effort, lungs clear to auscultation no respiratory distress Cardiovascular: RRR, no murmur, no edema Gastrointestinal (Abdomen): Inspection/Auscultation: abdomen normal to inspection and normal bowel sounds; abdomen not distended Percussion/Palpation: abdomen soft; abdomen nontender, no guarding, abdomen not rigid and no ascites Musculoskeletal: no cyanosis or clubbing, extremities motor strength 5/5 Skin: no rashes, warm and dry Neurologic: moves all extremities and + obtunded; + not awake Psychiatric: Orientation: + not alert and + uncooperative Results & Data Results & Data ([facility]) Vital Signs (Past 12 Hours) Vital Signs Temp Pulse Resp BP Pulse Ox 02/25/20 07:20 36.9 C 85 20 152/88 H 91 PG Care Time/CCT Total # of Minutes Spent Total Time Spent with Patient: Total time spent is greater than 50% in coordination of care (as documented) at patient's floor/unit and/or counseling patient: Coding Level of Care Code 50859 Subseq Hosp Care Lvl 3 Diagnoses Hepatic encephalopathy K72.90 Seizure R56.9 Coronary artery disease I25.10 Cirrhosis K74.60 Hypertension I10 Heavy alcohol use Z78.9 Anemia D64.9 DVT prophylaxis Z29.9
[2020-02-25] MEDS: levETIRAcetam 500 MG in 0.9 % SODIUM CHLORIDE 100 ML IV SCH (20:57)
[2020-02-26] MEDS: FOLIC ACID 1 MG TAB PO SCH (00:02)
[2020-02-26] MEDS: THIAMINE HCL 500 MG in 0.9 % SODIUM CHLORIDE 100 ML IV SCH ×3 (03:43→19:14)
[2020-02-26 04:37] LABS: Hematocrit (blood only) 33.6 % (42-52); Hemoglobin 10.9 g/dL (14.0-18.0); Mean Corpuscular Hemoglobin 33.9 pg (25-34); Mean Corpuscular Hgb Conc 32.4 g/dL (32-36); Mean Corpuscular Volume 104.3 fL (80-100); Mean Platelet Volume 11.3 fL (7.4-10.4); Platelet Count 130 K/uL (130-400); RDW Coefficient of Variation 15.4 % (11.5-14.5); RDW Standard Deviation 59.1 fL (36.4-46.3); Red Blood Count 3.22 M/uL (4.7-6.1)
[2020-02-26 04:49] LABS: INR 1.5 (0.9-1.1); Prothrombin Time 15.6 Seconds (9.0-12.0)
[2020-02-26 04:57] LABS: Albumin Globulin Ratio 0.5 (0.9-2); Albumin Level 2.3 gm/dl (3.4-5.0); BUN Creatinine Ratio 10.9 (10-20); Bilirubin,Total 2.4 mg/dl (0.2-1); Calcium 8.4 mg/dl (8.5-10.1); Creatinine Clr Calc Pharmacy 123.4 ml/min; Est GFR (African American) 116.8; Est GFR (Non-African American) 100.7; Globulin 4.8 gm/dl (2.5-4.0); Potassium 3.4 mmol/L (3.5-5.1); Total Protein 7.1 gm/dl (6.4-8.2)
[2020-02-26] MEDS: lisinopril 10 MG TAB PO SCH (09:00)
[2020-02-26] MEDS: METOPROLOL SUCC 50MG EXT REL TAB PO SCH (09:00)
[2020-02-26] MEDS: MAGNESIUM OXIDE 400 MG TAB PO SCH ×2 (09:00→20:57)
[2020-02-26] MEDS: LACTULOSE SYRUP 20 GM/30 ML UDC PO SCH ×3 (09:00→20:56)
[2020-02-26] MEDS: lamoTRIgine 100 MG TAB PO SCH ×2 (09:00→20:57)
[2020-02-26] MEDS: allopurinoL 300 MG TAB PO SCH (09:00)
[2020-02-26] MEDS: levETIRAcetam 500 MG in 0.9 % SODIUM CHLORIDE 100 ML IV SCH ×2 (09:00→20:57)
[2020-02-26] MEDS: HEPARIN SOD 5,000 UNIT/0.5 ML VIAL SQ SCH ×2 (09:00→20:56)
[2020-02-26] MEDS: ASPIRIN 81 MG ECTAB PO SCH (09:00)
[2020-02-26] MEDS ORDERED: ACETAMINOPHEN 325 MG TAB PO PRN (17:34)
[2020-02-27] MEDS: THIAMINE HCL 500 MG in 0.9 % SODIUM CHLORIDE 100 ML IV SCH ×2 (04:39→11:39)
[2020-02-27 06:50] LABS: Hematocrit (blood only) 36.4 % (42-52); Hemoglobin 11.7 g/dL (14.0-18.0); Mean Corpuscular Hemoglobin 33.6 pg (25-34); Mean Corpuscular Hgb Conc 32.1 g/dL (32-36); Mean Corpuscular Volume 104.6 fL (80-100); Mean Platelet Volume 11.6 fL (7.4-10.4); Platelet Count 125 K/uL (130-400); RDW Coefficient of Variation 15.5 % (11.5-14.5); Red Blood Count 3.48 M/uL (4.7-6.1); White Blood Count 4.82 K/uL (4.8-10.8)
[2020-02-27 07:27] LABS: Albumin Globulin Ratio 0.5 (0.9-2); Albumin Level 2.3 gm/dl (3.4-5.0); BUN Creatinine Ratio 11.1 (10-20); Bilirubin,Total 2.2 mg/dl (0.2-1); Calcium 8.4 mg/dl (8.5-10.1); Creatinine Clr Calc Pharmacy 118.8 ml/min; Est GFR (African American) 114.9; Est GFR (Non-African American) 99.2; Globulin 5.1 gm/dl (2.5-4.0); Magnesium 2.3 mg/dl (1.8-2.4); Potassium 4.9 mmol/L (3.5-5.1); Total Protein 7.4 gm/dl (6.4-8.2)
[2020-02-27] MEDS: METOPROLOL SUCC 50MG EXT REL TAB PO SCH (08:09)
[2020-02-27] MEDS: lamoTRIgine 100 MG TAB PO SCH ×2 (08:10→20:11)
[2020-02-27] MEDS: FOLIC ACID 1 MG TAB PO SCH (08:11)
[2020-02-27] MEDS: LACTULOSE SYRUP 20 GM/30 ML UDC PO SCH ×3 (08:11→20:11)
[2020-02-27] MEDS: ASPIRIN 81 MG ECTAB PO SCH (08:11)
[2020-02-27] MEDS: lisinopril 10 MG TAB PO SCH (08:11)
[2020-02-27] MEDS: allopurinoL 300 MG TAB PO SCH (08:11)
[2020-02-27] MEDS: levETIRAcetam 500 MG in 0.9 % SODIUM CHLORIDE 100 ML IV SCH ×2 (08:12→20:16)
[2020-02-27] MEDS: MAGNESIUM OXIDE 400 MG TAB PO SCH ×2 (08:12→20:11)
[2020-02-27] MEDS: HEPARIN SOD 5,000 UNIT/0.5 ML VIAL SQ SCH ×2 (10:36→20:12)
--- NOTE | 2020-02-27 12:57 | Hospitalist Progress Note ---
Date of Service February 27, 2020 Assessment & Plan (1) Hepatic encephalopathy: Patient was admitted initially for seizures and alcohol withdrawal. However patient has remained confused over course of his hospital stay. Ddx includes continued alcohol withdrawal, iatrogenic, seizures. - Continue thiamine 100 mg PO daily - Discussed with neurology on 02/24 - Because he was inconsistently taking his lamotrigine, we started Keppra. Also focused on lactulose and try to resolve any hepatic encephalopathy. - Much improved today. Will switch thiamine to oral. (2) Seizure: Seizure 2/2 seizure disorder with recent cessation of antiepileptic versus alcohol withdrawal. Patient with a history of alcohol abuse, ataxia with last drink 4 to 5 days prior to admission. 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 Previously on Lamictal 250 mg every morning, 400 mg every afternoon and Keppra 250 mg daily. Stopped Keppra 6 months ago, patient is a somewhat poor historian and does not remember why this was stopped or if he was advised to stop taking it by physician. - Presently on lamotrigine 150 mg PO BID with multiple missed doses due to agitation. - Keppra as above; will discuss with neurology on 02/27 re: adjusting his regimen. (3) Coronary artery disease: Patient with PCI to LAD 11/2018. Continue lisinopril 10 mg, metoprolol XL 100 mg every morning Aspirin initially held for severe thrombocytopenia; restarted now. (4) Cirrhosis: CT a/p on 02/16 showed cirrhotic-appearing liver. Given known alcoholism, thought to have alcoholic cirrhosis. - MELD-Na score was 15, giving him a 6% 3-month mortality. - Continue lactulose to aim for 3-4 BMs per day. (5) Hypertension: BP today is 150/80. - Continue lisinopril & metoprolol as able. (6) Heavy alcohol use: Per patient and , drinking at least 10 drinks/day. - Continue folic acid and thiamine (7) Anemia: Likely bone marrow suppression from alcohol. - Stable today. (8) DVT prophylaxis: Heparin 5,000 units SQ Q12h Admission and Anticipated Discharge Date Admission Date: February 10, 2020 Subjective Much improved today. He is alert and oriented. Feels very weak. Reports no fevers/chills, chest pain, shortness of breath, abdominal pain, nausea, or vomit ing. Physical Exam Constitutional: WD/WN, vitals as above Eyes: EOM intact bilaterally; no conjunctival abnormality ENMT: external ear and nose normal, oropharynx normal Neck: trachea midline, no thyromegaly normal visual inspection Respiratory: normal respiratory effort, lungs clear to auscultation no respiratory distress Cardiovascular: RRR, no murmur, no edema Gastrointestinal (Abdomen): Inspection/Auscultation: abdomen normal to inspection and normal bowel sounds; abdomen not distended Percussion/Palpation: abdomen soft; abdomen nontender, no guarding, abdomen not rigid and no ascites Musculoskeletal: no cyanosis or clubbing, extremities motor strength 5/5 Skin: no rashes, warm and dry Neurologic: moves all extremities and awake Psychiatric: Orientation: alert and cooperative Results & Data Results & Data ([facility]) Vital Signs (Past 12 Hours) Vital Signs Temp Pulse Resp BP Pulse Ox 02/27/20 07:00 37.0 C 81 18 151/79 H 92 PG Care Time/CCT Total # of Minutes Spent Total Time Spent with Patient: Total time spent is greater than 50% in coordination of care (as documented) at patient's floor/unit and/or counseling patient: Coding Level of Care Code 71808 Subseq Hosp Care Lvl 2 Diagnoses Hepatic encephalopathy K72.90 Seizure R56.9 Coronary artery disease I25.10 Cirrhosis K74.60 Hypertension I10 Heavy alcohol use Z78.9 Anemia D64.9 DVT prophylaxis Z29.9
[2020-02-28] MEDS: lamoTRIgine 100 MG TAB PO SCH ×2 (08:23→20:46)
[2020-02-28] MEDS: FOLIC ACID 1 MG TAB PO SCH (08:23)
[2020-02-28] MEDS: LACTULOSE SYRUP 20 GM/30 ML UDC PO SCH ×3 (08:23→20:45)
[2020-02-28] MEDS: ASPIRIN 81 MG ECTAB PO SCH (08:23)
[2020-02-28] MEDS: MAGNESIUM OXIDE 400 MG TAB PO SCH ×2 (08:24→20:46)
[2020-02-28] MEDS: THIAMINE HCL 100 MG TAB PO SCH (08:25)
[2020-02-28] MEDS: HEPARIN SOD 5,000 UNIT/0.5 ML VIAL SQ SCH ×2 (08:25→20:47)
[2020-02-28] MEDS: allopurinoL 300 MG TAB PO SCH (08:25)
[2020-02-28] MEDS: METOPROLOL SUCC 50MG EXT REL TAB PO SCH (08:25)
[2020-02-28] MEDS: lisinopril 10 MG TAB PO SCH (08:25)
[2020-02-28] MEDS: levETIRAcetam 500 MG in 0.9 % SODIUM CHLORIDE 100 ML IV SCH (08:33)
--- NOTE | 2020-02-28 16:17 | Hospitalist Progress Note ---
Date of Service February 28, 2020 Assessment & Plan (1) Hepatic encephalopathy: Patient was admitted initially for seizures and alcohol withdrawal. However patient had remained confused over course of his hospital stay. Ddx includes continued alcohol withdrawal, iatrogenic, seizures. - Continue thiamine 100 mg PO daily - Discussed with neurology on 02/24 - Because he was inconsistently taking his lamotrigine, we started Keppra. Also focused on lactulose and try to resolve any hepatic encephalopathy. - Improved today. Taking his medications. - Discussed with neurology on 02/27 -> Lower lamotrigine dose as it is not ideal with cirrhosis with plan to titrate off. Will increase Keppra 750 mg IV BID. Plan to switch to PO tomorrow. Neurology will see him as well and update recs. - Plan for rehab discharge. (2) Seizure: Seizure 2/2 seizure disorder with recent cessation of antiepileptic versus alcohol withdrawal. Patient with a history of alcohol abuse, ataxia with last drink 4 to 5 days prior to admission. 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 Previously on Lamictal 250 mg every morning, 400 mg every afternoon and Keppra 250 mg daily. Stopped Keppra 6 months ago, patient is a somewhat poor historian and does not remember why this was stopped or if he was advised to stop taking it by physician. - Lamotrigine & Keppra as above (3) Coronary artery disease: Patient with PCI to LAD 11/2018. Continue lisinopril 10 mg, metoprolol XL 100 mg every morning Aspirin initially held for severe thrombocytopenia; restarted now. (4) Cirrhosis: CT a/p on 02/16 showed cirrhotic-appearing liver. Given known alcoholism, thought to have alcoholic cirrhosis. - MELD-Na score was 15, giving him a 6% 3-month mortality. - Continue lactulose to aim for 3-4 BMs per day. (5) Hypertension: BP today is 140/80. - Continue lisinopril & metoprolol as able. (6) Heavy alcohol use: Per patient and , drinking at least 10 drinks/day. - Continue folic acid and thiamine (7) Anemia: Likely bone marrow suppression from alcohol. - Stable today. (8) DVT prophylaxis: Heparin 5,000 units SQ Q12h Admission and Anticipated Discharge Date Admission Date: February 10, 2020 Subjective Sleeping today, but easily arousable. He had a fall today when out of bed, and he has some right hip pain. Reports no fevers/chills, chest pain, shortness of breath, abdominal pain, nausea, or vomiting. Physical Exam Constitutional: WD/WN, vitals as above + acute distress and + disheveled Eyes: EOM intact bilaterally; no conjunctival abnormality ENMT: external ear and nose normal, oropharynx normal Neck: trachea midline, no thyromegaly normal visual inspection Respiratory: normal respiratory effort, lungs clear to auscultation no respiratory distress Cardiovascular: RRR, no murmur, no edema Gastrointestinal (Abdomen): Inspection/Auscultation: abdomen normal to inspection and normal bowel sounds; abdomen not distended Percussion/Palpation: abdomen soft; abdomen nontender, no guarding, abdomen not rigid and no ascites Musculoskeletal: no cyanosis or clubbing, extremities motor strength 5/5 Skin: no rashes, warm and dry Neurologic: moves all extremities and awake Psychiatric: Orientation: alert and cooperative Results & Data Results & Data ([facility]) Vital Signs (Past 12 Hours) Vital Signs Temp Pulse Resp BP BP Pulse Ox 02/28/20 15:16 37.3 C 79 20 140/85 95 02/28/20 07:15 37.0 C 83 18 144/80 H 91 PG Care Time/CCT Total # of Minutes Spent Total Time Spent with Patient: Total time spent is greater than 50% in coordination of care (as documented) at patient's floor/unit and/or counseling patient: Coding Level of Care Code 62476 Subseq Hosp Care Lvl 2 Diagnoses Hepatic encephalopathy K72.90 Seizure R56.9 Coronary artery disease I25.10 Cirrhosis K74.60 Hypertension I10 Heavy alcohol use Z78.9 Anemia D64.9 DVT prophylaxis Z29.9
[2020-02-28] MEDS: levETIRAcetam 750 MG in 0.9 % SODIUM CHLORIDE 100 ML IV SCH (20:45)
[2020-02-29] MEDS: THIAMINE HCL 100 MG TAB PO SCH (07:52)
[2020-02-29] MEDS: MAGNESIUM OXIDE 400 MG TAB PO SCH ×2 (07:52→20:10)
[2020-02-29] MEDS: METOPROLOL SUCC 50MG EXT REL TAB PO SCH (07:52)
[2020-02-29] MEDS: ASPIRIN 81 MG ECTAB PO SCH (07:53)
[2020-02-29] MEDS: FOLIC ACID 1 MG TAB PO SCH (07:53)
[2020-02-29] MEDS: lamoTRIgine 100 MG TAB PO SCH (07:53)
[2020-02-29] MEDS: lisinopril 10 MG TAB PO SCH (07:53)
[2020-02-29] MEDS: levETIRAcetam 750 MG in 0.9 % SODIUM CHLORIDE 100 ML IV SCH (07:53)
[2020-02-29] MEDS: allopurinoL 300 MG TAB PO SCH (07:54)
[2020-02-29] MEDS: HEPARIN SOD 5,000 UNIT/0.5 ML VIAL SQ SCH ×3 (07:54→20:10)
[2020-02-29] MEDS: LACTULOSE SYRUP 20 GM/30 ML UDC PO SCH ×3 (08:02→20:09)
[2020-02-29 08:05] LABS: Hematocrit (blood only) 33.3 % (42-52); Hemoglobin 10.8 g/dL (14.0-18.0); Mean Corpuscular Hemoglobin 33.9 pg (25-34); Mean Corpuscular Hgb Conc 32.4 g/dL (32-36); Mean Corpuscular Volume 104.4 fL (80-100); Mean Platelet Volume 11.6 fL (7.4-10.4); Platelet Count 115 K/uL (130-400); RDW Coefficient of Variation 15.7 % (11.5-14.5); Red Blood Count 3.19 M/uL (4.7-6.1); White Blood Count 4.96 K/uL (4.8-10.8)
[2020-02-29 08:39] LABS: Albumin Globulin Ratio 0.5 (0.9-2); Albumin Level 2.3 gm/dl (3.4-5.0); BUN Creatinine Ratio 12.6 (10-20); Bilirubin,Total 2.1 mg/dl (0.2-1); Calcium 8.2 mg/dl (8.5-10.1); Creatinine Clr Calc Pharmacy 121.8 ml/min; Est GFR (African American) 116.1; Est GFR (Non-African American) 100.2; Globulin 4.6 gm/dl (2.5-4.0); Potassium 3.7 mmol/L (3.5-5.1); Total Protein 6.9 gm/dl (6.4-8.2)
--- NOTE | 2020-02-29 12:17 | Neurology Progress Note ---
Date of Service February 29, 2020 Assessment & Plan (1) Seizure: Uvaldo Mendez is a 55 yo man w/ PMH of HTN, tremor, arthritis, h/o kidney stones, h/o PA, GERD, gout, anemia, depression, h/o alcohol abuse c/b ataxia/neuropathy/cirrhosis/portal HTN and h/o seizure who p/t [facility] with 2 breakthrough seizures and increased difficulty ambulating in the setting of a febrile illness. # Seizures in the setting of fever: Unable to obtain LP at this time given severe thrombocytopenia. Completed abx treatment. Out of window for DTs/withdrawal at this time. Lamictal level was in the therapeutic range (despite missing several doses). Given liver disease, will transition to keppra that is renally cleared to ensure adequate therapeutic AED coverage (and IV access if needed). - AEDs: continue keppra 750mg q12h IV, convert to PO form later today (02/28) - wean off of lamictal as follows: 50mg bid x1 day, then 25mg bid x1 day, then stop - continue thiamine/folate/MV - Would benefit from EMU referral in the future as it is unclear if he actually has seizures or if they are alcohol withdrawal related - continue lactulose for hepatic encephalopathy Thank you this interesting consult. Plan of care discussed with primary team. Please contact with questions. (2) Fever: (3) Heavy alcohol use: (4) Alcoholic cerebellar degeneration: Admission and Anticipated Discharge Date Admission Date: February 10, 2020 Subjective NAEs overnight. He is much more alert and oriented than the last time that I saw him about 2 weeks ago. He was fixated on being able to leave "school" and go home. Required frequent re-direction. Review of Systems Review of Systems: 14 point review of systems completed and negative except for hip pain. Results & Data ([facility]) Vital Signs (Past 12 Hours) Vital Signs Temp Pulse Resp BP Pulse Ox 02/29/20 07:09 37.6 C H 81 20 151/81 H 94 Exam (Neuro) Physical Exam: General Exam: GEN: NAD, sitting in bed. HEENT: No conjunctival injection, no rhinorrhea. CV: RRR, no peripheral edema PULM: Nonlabored respirations on room air. Neuro Exam: MS: Awake, alert. Oriented to person and month/year but not place/situation. Speech fluent and appropriate, minimal dysarthria, no paraphasic errors. Language intact including naming, comprehension, repetition. Cognition and memory grossly impaired. Inattentive. No clear neglect. CN: Visual callejas full. PERRLA OU. EOMI without nystagmus. Facial muscles full and symmetric. Hearing intact to conversation. Shoulder shrug normal. Tongue midline. MOTOR: Normal bulk and tone. No pronator drift. BUE strength 5/5 at deltoids, biceps, triceps, wrist flexors and extensors, and hand grasp bilaterally. BLE strength 5/5 at iliopsoas, hamstrings, quadriceps, tibialis anterior, and gastrocnemius bilaterally. REFLEXES: 1+ at biceps, triceps, brachioradialis, 1+ patella and absent Achilles bilaterally. Flexor plantar responses bilaterally. SENSORY: Intact to LT without extinction to double simultaneous stimuli. Vibration intact throughout. COORDINATION: Mild dysmetria or ataxia on [id number] bilaterally. Normal Luciano bilaterally. Mild intention tremor/fine high frequency tremor on outstretch. GAIT: deferred given fall risk/physical status PG Care Time/CCT Total # of Minutes Spent Total Time Spent with Patient: Total time spent is greater than 50% in coordination of care (as documented) at patient's floor/unit and/or counseling patient: Coding Level of Care Code 61365 Subseq Hosp Care Lvl 2 Diagnoses Seizure R56.9 Fever R50.9 Fever type: unspecified Heavy alcohol use Z78.9 Alcoholic cerebellar degeneration F10.20; G31.2 (1) Fever Fever type: unspecified Qualified Code(s): R50.9 - Fever, unspecified
--- NOTE | 2020-02-29 17:02 | Hospitalist Progress Note ---
Date of Service February 29, 2020 Assessment & Plan (1) Hepatic encephalopathy: Patient was admitted initially for seizures and alcohol withdrawal. However patient had remained confused over course of his hospital stay. Ddx includes continued alcohol withdrawal, iatrogenic, seizures. - Continue thiamine 100 mg PO daily - Discussed with neurology on 02/24 - Because he was inconsistently taking his lamotrigine, we started Keppra. Also focused on lactulose and try to resolve any hepatic encephalopathy. - Improved today. Taking his medications. - Discussed with neurology on 02/27 -> Lower lamotrigine dose as it is not ideal with cirrhosis with plan to titrate off. Will increase Keppra 750 mg IV BID. Plan to switch to PO today. Neurology will see him as well and update recs. - Plan for rehab discharge tomorrow. (2) Seizure: Seizure 2/2 seizure disorder with recent cessation of antiepileptic versus alcohol withdrawal. Patient with a history of alcohol abuse, ataxia with last drink 4 to 5 days prior to admission. 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 Previously on Lamictal 250 mg every morning, 400 mg every afternoon and Keppra 250 mg daily. Stopped Keppra 6 months ago, patient is a somewhat poor historian and does not remember why this was stopped or if he was advised to stop taking it by physician. - Lamotrigine & Keppra as above (3) Coronary artery disease: Patient with PCI to LAD 11/2018. Continue lisinopril 10 mg, metoprolol XL 100 mg every morning Aspirin initially held for severe thrombocytopenia; restarted now. (4) Cirrhosis: CT a/p on 02/16 showed cirrhotic-appearing liver. Given known alcoholism, thought to have alcoholic cirrhosis. - MELD-Na score was 15, giving him a 6% 3-month mortality. - Continue lactulose to aim for 3-4 BMs per day. (5) Hypertension: BP today is 140/80. - Continue lisinopril & metoprolol as able. (6) Heavy alcohol use: Per patient and , drinking at least 10 drinks/day. - Continue folic acid and thiamine (7) Anemia: Likely bone marrow suppression from alcohol. - Stable today. (8) DVT prophylaxis: Heparin 5,000 units SQ Q12h Admission and Anticipated Discharge Date Admission Date: February 10, 2020 Subjective 55 yo male reports no new symptoms. He is asking about his gun in his cabinet at home. However he states he is aware of being in the hospital. Review of Systems Review of Systems: All systems reviewed & are unremarkable except as noted in HPI & below Physical Exam Physical Exam: General: lying in bed comfortably. HEENT: Atraumatic, normocephalic. Pulm: CTAB A&P Symmetrical chest rise. No increase work of breathing. No respiratory distress. Cardiac: RRR, -mrg. Radial pulses intact and symmetrical. Abdominal: distended, ascites is likely present. Nontender. collateral veins noted. extremities: no edema Neuro: CN II-XII intacted Results & Data Results & Data ([facility]) Vital Signs (Past 12 Hours) Vital Signs Temp Pulse Resp BP Pulse Ox 02/29/20 15:32 37.1 C 84 19 153/70 H 94 02/29/20 07:09 37.6 C H 81 20 151/81 H 94 PG Care Time/CCT Total # of Minutes Spent Total Time Spent with Patient: Total time spent is greater than 50% in coordination of care (as documented) at patient's floor/unit and/or counseling patient: Coding Level of Care Code 05097 Subseq Hosp Care Lvl 2 Diagnoses Hepatic encephalopathy K72.90 Seizure R56.9 Coronary artery disease I25.10 Cirrhosis K74.60 Hypertension I10 Heavy alcohol use Z78.9 Anemia D64.9 DVT prophylaxis Z29.9
[2020-02-29] MEDS: lamoTRIgine 25 MG TAB PO SCH (20:09)
[2020-02-29] MEDS: levETIRAcetam 250 MG TAB PO SCH (20:09)
[2020-03-01] MEDS: FOLIC ACID 1 MG TAB PO SCH (07:49)
[2020-03-01] MEDS: METOPROLOL SUCC 50MG EXT REL TAB PO SCH (07:49)
[2020-03-01] MEDS: LACTULOSE SYRUP 20 GM/30 ML UDC PO SCH ×3 (07:49→19:26)
[2020-03-01] MEDS: levETIRAcetam 250 MG TAB PO SCH ×2 (07:50→19:27)
[2020-03-01] MEDS: MAGNESIUM OXIDE 400 MG TAB PO SCH ×2 (07:50→19:28)
[2020-03-01] MEDS: lisinopril 10 MG TAB PO SCH (07:51)
[2020-03-01] MEDS: HEPARIN SOD 5,000 UNIT/0.5 ML VIAL SQ SCH ×2 (07:51→19:28)
[2020-03-01] MEDS: allopurinoL 300 MG TAB PO SCH (07:51)
[2020-03-01] MEDS: ASPIRIN 81 MG ECTAB PO SCH (07:51)
[2020-03-01] MEDS: THIAMINE HCL 100 MG TAB PO SCH (07:51)
[2020-03-01] MEDS: lamoTRIgine 25 MG TAB PO SCH ×2 (07:51→19:26)
--- NOTE | 2020-03-01 15:10 | XRay Report ---
XR hip JUAN CARLOS 2v w pelvis HISTORY: 55 years-old Male hip pain/ s/p fall acute bilateral hip pain without reported trauma COMPARISON: CT abdomen and pelvis 02/18/2020 TECHNIQUE: AP view the pelvis with 2 views of the bilateral hips FINDINGS: Mild to moderate osteoarthritis of the femoral acetabular joints. Degenerative changes of the lower l umbar spine. There is no acute fracture, dislocation or avascular necrosis. Unremarkable soft tissues . Probable phleboliths of the right hemipelvis. Unremarkable soft tissues. IMPRESSION: No acute fracture or dislocation. ACT 112: Negative or not required by law. The above report was generated using voice recognition software. It may contain grammatical, syntax o r spelling errors. Electronically signed by: Barrera Harvey M.D. 03/01/2020 3:08 PM
--- NOTE | 2020-03-01 22:46 | Hospitalist Progress Note ---
Date of Service March 01, 2020 Assessment & Plan (1) Hepatic encephalopathy: Patient was admitted initially for seizures and alcohol withdrawal. However patient had remained confused over course of his hospital stay. Ddx includes continued alcohol withdrawal, iatrogenic, seizures. - Continue thiamine 100 mg PO daily - Discussed with neurology on 02/24 - Because he was inconsistently taking his lamotrigine, we started Keppra. Also focused on lactulose and try to resolve any hepatic encephalopathy. - Improved today. Taking his medications. - Discussed with neurology on 02/27 -> Lower lamotrigine dose as it is not ideal with cirrhosis with plan to titrate off. Will increase Keppra 750 mg IV BID. Plan to switch to PO today. Neurology will see him as well and update recs. - Plan for rehab discharge tomorrow. (2) Seizure: Seizure 2/2 seizure disorder with recent cessation of antiepileptic versus alcohol withdrawal. Patient with a history of alcohol abuse, ataxia with last drink 4 to 5 days prior to admission. 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 Previously on Lamictal 250 mg every morning, 400 mg every afternoon and Keppra 250 mg daily. Stopped Keppra 6 months ago, patient is a somewhat poor historian and does not remember why this was stopped or if he was advised to stop taking it by physician. - Lamotrigine & Keppra as above (3) Coronary artery disease: Patient with PCI to LAD 11/2018. Continue lisinopril 10 mg, metoprolol XL 100 mg every morning Aspirin initially held for severe thrombocytopenia; restarted now. (4) Cirrhosis: CT a/p on 02/16 showed cirrhotic-appearing liver. Given known alcoholism, thought to have alcoholic cirrhosis. - MELD-Na score was 15, giving him a 6% 3-month mortality. - Continue lactulose to aim for 3-4 BMs per day. (5) Hypertension: BP today is 140/80. - Continue lisinopril & metoprolol as able. (6) Heavy alcohol use: Per patient and , drinking at least 10 drinks/day. - Continue folic acid and thiamine (7) Anemia: Likely bone marrow suppression from alcohol. - Stable today. (8) DVT prophylaxis: Heparin 5,000 units SQ Q12h (9) Hip pain: SP fall. negative imaging Admission and Anticipated Discharge Date Admission Date: February 10, 2020 Subjective Patient has no new complaints except for right hip pain. Patient had a fall over 24 hours ago. Review of Systems Review of Systems: All systems reviewed & are unremarkable except as noted in HPI & below Physical Exam Physical Exam: General: lying in bed comfortably. HEENT: Atraumatic, normocephalic. Pulm: CTAB A&P Symmetrical chest rise. No increase work of breathing. No respiratory distress. Cardiac: RRR, -mrg. Radial pulses intact and symmetrical. Abdominal: distended, ascites is likely present. Nontender. collateral veins noted. extremities: no edema Neuro: CN II-XII intacted Results & Data Results & Data ([facility]) Vital Signs (Past 12 Hours) Vital Signs Temp Pulse Resp BP Pulse Ox 03/01/20 19:07 37.1 C 82 20 132/70 93 03/01/20 14:54 37.2 C 70 18 130/78 94 PG Care Time/CCT Total # of Minutes Spent Total Time Spent with Patient: Total time spent is greater than 50% in coordination of care (as documented) at patient's floor/unit and/or counseling patient: Coding Level of Care Code 35564 Subseq Hosp Care Lvl 2 Diagnoses Hepatic encephalopathy K72.90 Seizure R56.9 Coronary artery disease I25.10 Cirrhosis K74.60 Hypertension I10 Heavy alcohol use Z78.9 Anemia D64.9 DVT prophylaxis Z29.9 Hip pain M25.559
[2020-03-02] MEDS: HEPARIN SOD 5,000 UNIT/0.5 ML VIAL SQ SCH ×2 (08:07→21:02)
[2020-03-02] MEDS: LACTULOSE SYRUP 20 GM/30 ML UDC PO SCH ×3 (08:07→21:00)
[2020-03-02] MEDS: THIAMINE HCL 100 MG TAB PO SCH (08:07)
[2020-03-02] MEDS: lamoTRIgine 25 MG TAB PO SCH ×2 (08:08→21:02)
[2020-03-02] MEDS: FOLIC ACID 1 MG TAB PO SCH (08:08)
[2020-03-02] MEDS: ASPIRIN 81 MG ECTAB PO SCH (08:08)
[2020-03-02] MEDS: allopurinoL 300 MG TAB PO SCH (08:08)
[2020-03-02] MEDS: METOPROLOL SUCC 50MG EXT REL TAB PO SCH (08:08)
[2020-03-02] MEDS: levETIRAcetam 250 MG TAB PO SCH ×2 (08:08→21:01)
[2020-03-02] MEDS: lisinopril 10 MG TAB PO SCH (08:08)
[2020-03-02] MEDS: MAGNESIUM OXIDE 400 MG TAB PO SCH ×2 (08:08→21:01)
--- NOTE | 2020-03-03 07:31 | Hospitalist Progress Note ---
Date of Service March 02, 2020 Assessment & Plan (1) Hepatic encephalopathy: Patient was admitted initially for seizures and alcohol withdrawal. However patient had remained confused over course of his hospital stay. Ddx includes continued alcohol withdrawal, iatrogenic, seizures. - Continue thiamine 100 mg PO daily - Discussed with neurology on 02/24 - Because he was inconsistently taking his lamotrigine, we started Keppra. Also focused on lactulose and try to resolve any hepatic encephalopathy. - Improved today. Taking his medications. - Discussed with neurology on 02/27 -> Lower lamotrigine dose as it is not ideal with cirrhosis with plan to titrate off. Will increase Keppra 750 mg IV BID. Plan to switch to PO today. Neurology will see him as well and update recs. - Plan for rehab discharge: awaiting placement. (2) Seizure: Seizure 2/2 seizure disorder with recent cessation of antiepileptic versus alcohol withdrawal. Patient with a history of alcohol abuse, ataxia with last drink 4 to 5 days prior to admission. 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 Previously on Lamictal 250 mg every morning, 400 mg every afternoon and Keppra 250 mg daily. Stopped Keppra 6 months ago, patient is a somewhat poor historian and does not remember why this was stopped or if he was advised to stop taking it by physician. - Lamotrigine & Keppra as above (3) Coronary artery disease: Patient with PCI to LAD 11/2018. Continue lisinopril 10 mg, metoprolol XL 100 mg every morning Aspirin initially held for severe thrombocytopenia; restarted now. (4) Cirrhosis: CT a/p on 02/16 showed cirrhotic-appearing liver. Given known alcoholism, thought to have alcoholic cirrhosis. - MELD-Na score was 15, giving him a 6% 3-month mortality. - Continue lactulose to aim for 3-4 BMs per day. (5) Hypertension: BP today is 140/80. - Continue lisinopril & metoprolol as able. (6) Heavy alcohol use: Per patient and , drinking at least 10 drinks/day. - Continue folic acid and thiamine (7) Anemia: Likely bone marrow suppression from alcohol. - Stable today. (8) DVT prophylaxis: Heparin 5,000 units SQ Q12h (9) Hip pain: SP fall. negative imaging for acute fracture Admission and Anticipated Discharge Date Admission Date: February 10, 2020 Subjective Patient reports no new sympotms today. Review of Systems Review of Systems: All systems reviewed & are unremarkable except as noted in HPI & below Physical Exam Physical Exam: General: lying in bed comfortably. HEENT: Atraumatic, normocephalic. Pulm: CTAB A&P Symmetrical chest rise. No increase work of breathing. No respiratory distress. Cardiac: RRR, -mrg. Radial pulses intact and symmetrical. Abdominal: distended, ascites is likely present. Nontender. collateral veins noted. extremities: no edema Neuro: CN II-XII intacted Results & Data Results & Data ([facility]) Vital Signs (Past 12 Hours) Vital Signs Temp Pulse Resp BP BP Pulse Ox 03/02/20 22:54 36.8 C 81 18 137/81 93 03/02/20 19:53 37.1 C 80 18 132/80 95 PG Care Time/CCT Total # of Minutes Spent Total Time Spent with Patient: Total time spent is greater than 50% in coordination of care (as documented) at patient's floor/unit and/or counseling patient: Coding Level of Care Code 37824 Subseq Hosp Care Lvl 2 Diagnoses Hepatic encephalopathy K72.90 Seizure R56.9 Coronary artery disease I25.10 Cirrhosis K74.60 Hypertension I10 Heavy alcohol use Z78.9 Anemia D64.9 DVT prophylaxis Z29.9 Hip pain M25.559
[2020-03-03] MEDS: MAGNESIUM OXIDE 400 MG TAB PO SCH ×2 (09:42→21:11)
[2020-03-03] MEDS: allopurinoL 300 MG TAB PO SCH (09:42)
[2020-03-03] MEDS: lisinopril 10 MG TAB PO SCH (09:42)
[2020-03-03] MEDS: lamoTRIgine 25 MG TAB PO SCH ×2 (09:42→21:12)
[2020-03-03] MEDS: THIAMINE HCL 100 MG TAB PO SCH (09:42)
[2020-03-03] MEDS: METOPROLOL SUCC 50MG EXT REL TAB PO SCH (09:42)
[2020-03-03] MEDS: ASPIRIN 81 MG ECTAB PO SCH (09:42)
[2020-03-03] MEDS: levETIRAcetam 250 MG TAB PO SCH ×2 (09:42→21:11)
[2020-03-03] MEDS: HEPARIN SOD 5,000 UNIT/0.5 ML VIAL SQ SCH ×2 (09:43→21:11)
[2020-03-03] MEDS: FOLIC ACID 1 MG TAB PO SCH (09:43)
[2020-03-03] MEDS: LACTULOSE SYRUP 20 GM/30 ML UDC PO SCH ×3 (09:43→21:11)
[2020-03-03] MEDS ORDERED: COUGH DROP (SUGAR FREE) LOZ 24 LOZ/1 BOX BUCCAL ONE (09:59)
--- NOTE | 2020-03-03 22:03 | Hospitalist Progress Note ---
Date of Service March 03, 2020 Assessment & Plan (1) Hepatic encephalopathy: Patient was admitted initially for seizures and alcohol withdrawal. However patient had remained confused over course of his hospital stay. Ddx includes continued alcohol withdrawal, iatrogenic, seizures. - Continue thiamine 100 mg PO daily - Discussed with neurology on 02/24 - Because he was inconsistently taking his lamotrigine, we started Keppra. Also focused on lactulose and try to resolve any hepatic encephalopathy. - Improved today. Taking his medications. - Discussed with neurology on 02/27 -> Lower lamotrigine dose as it is not ideal with cirrhosis with plan to titrate off. Will increase Keppra 750 mg IV BID. Plan to switch to PO today. Neurology will see him as well and update recs. - Plan for rehab discharge: awaiting placement. (2) Seizure: Seizure 2/2 seizure disorder with recent cessation of antiepileptic versus alcohol withdrawal. Patient with a history of alcohol abuse, ataxia with last drink 4 to 5 days prior to admission. 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 Previously on Lamictal 250 mg every morning, 400 mg every afternoon and Keppra 250 mg daily. Stopped Keppra 6 months ago, patient is a somewhat poor historian and does not remember why this was stopped or if he was advised to stop taking it by physician. - Lamotrigine & Keppra as above (3) Coronary artery disease: Patient with PCI to LAD 11/2018. Continue lisinopril 10 mg, metoprolol XL 100 mg every morning Aspirin initially held for severe thrombocytopenia; this has been restarted. (4) Cirrhosis: CT a/p on 02/16 showed cirrhotic-appearing liver. Given known alcoholism, thought to have alcoholic cirrhosis. - MELD-Na score was 15, giving him a 6% 3-month mortality. - Continue lactulose to aim for 3-4 BMs per day. (5) Hypertension: BP today is 140/80. - Continue lisinopril & metoprolol as able. (6) Heavy alcohol use: Per patient and , drinking at least 10 drinks/day. - Continue folic acid and thiamine (7) Anemia: Likely bone marrow suppression from alcohol. - Stable today. (8) DVT prophylaxis: Heparin 5,000 units SQ Q12h (9) Hip pain: SP fall. negative imaging for acute fracture Admission and Anticipated Discharge Date Admission Date: February 10, 2020 Subjective Patient has no new complains today. Review of Systems Review of Systems: All systems reviewed & are unremarkable except as noted in HPI & below Physical Exam Physical Exam: General: lying in bed comfortably. HEENT: Atraumatic, normocephalic. Pulm: CTAB A&P Symmetrical chest rise. No increase work of breathing. No respiratory distress. Cardiac: RRR, -mrg. Radial pulses intact and symmetrical. Abdominal: distended, ascites is likely present. Nontender. collateral veins noted. extremities: no edema Neuro: CN II-XII intacted PG Care Time/CCT Total # of Minutes Spent Total Time Spent with Patient: Total time spent is greater than 50% in coordination of care (as documented) at patient's floor/unit and/or counseling patient: Coding Level of Care Code 22268 Subseq Hosp Care Lvl 2 Diagnoses Hepatic encephalopathy K72.90 Seizure R56.9 Coronary artery disease I25.10 Cirrhosis K74.60 Hypertension I10 Heavy alcohol use Z78.9 Anemia D64.9 DVT prophylaxis Z29.9 Hip pain M25.559
[2020-03-04] MEDS: LACTULOSE SYRUP 20 GM/30 ML UDC PO SCH (08:35)
[2020-03-04] MEDS: HEPARIN SOD 5,000 UNIT/0.5 ML VIAL SQ SCH (08:36)
[2020-03-04] MEDS: FOLIC ACID 1 MG TAB PO SCH (08:36)
[2020-03-04] MEDS: lamoTRIgine 25 MG TAB PO SCH (08:36)
[2020-03-04] MEDS: ASPIRIN 81 MG ECTAB PO SCH (08:36)
[2020-03-04] MEDS: levETIRAcetam 250 MG TAB PO SCH (08:36)
[2020-03-04] MEDS: MAGNESIUM OXIDE 400 MG TAB PO SCH (08:37)
[2020-03-04] MEDS: METOPROLOL SUCC 50MG EXT REL TAB PO SCH (08:37)
[2020-03-04] MEDS: lisinopril 10 MG TAB PO SCH (08:38)
[2020-03-04] MEDS: THIAMINE HCL 100 MG TAB PO SCH (08:38)
[2020-03-04] MEDS: allopurinoL 300 MG TAB PO SCH (08:38)
--- NOTE | 2020-03-04 10:11 | Discharge Summary ---
Date of Service March 04, 2020 Admission HPI Per Admitting Provider Uvaldo Mendez is a 55-year-old male with a past medical history of coronary artery disease with LAD stenting 11/2018, hypertension, seizure disorder 2/2 TBI in 1981, alcohol abuse, and ambulatory dysfunction who presents with 2 seizures and increasing falls in the previous weeks. Uvaldo is seen at the bedside with his who provides collateral history. He reports that he has had several falls, up to 11/day, over the last few weeks with worsening tremor balance and strength. He has a fairly poor historian, and is unable to recall the names of his medications or why they were changed. His reports that last night he had a seizure episode with tonic/clonic shaking which lasted 1 to 2 minutes. He had another seizure episode this morning which lasted 1 to 2 minutes and which was associated with tongue biting and bleeding. Mr. Mendez does not recall these episodes. He reports that he has not had a seizure in 2 to 3 years, and has seen neurology and has been on seizure medication for a long time after he sustained a traumatic brain injury in 1981 with subsequent seizure. He was previously on Lamictal 300 mg a.m., 400 mg p.m. and Keppra 250 mg daily and had not had a seizure in many years, stopped the Keppra 6 months ago but is unsure why. Patient also reports a very high alcohol intake. He reports that he normally drinks nearly every day, at least 10 beers in a sitting. His who is present at bedside reports she is unsure of how much he drinks because she works and he is at home most of the day, but indicates that patient has a very high alcohol intake. His last drink was Friday, 4-5 days ago. He reports that he has severe worsening tremors at baseline, which seem worse in the last week. Denies visual and auditory hallucinations, endorses that he has a seizure history as above but that he has not noted any effect of alcohol on this. He has had a swollen belly which is nontender which has been progressive over several months per his . She notes that he has lost a lot of muscle mass and does not eat much, but drinks often. Patient reports in the last week he has felt feverish, had night sweats, poor sleep, decreased appetite. No rash or tick bites, notes he lives at his [place] and has pets. He has had tick bites in the past. He has had an intermittent headache in the last week. Review of his chart shows a history of alcoholic cerebellar degeneration and ataxia, patient reports he does not know what these terms are and it had not been mentioned to him previously. He has a history of alcoholic cirrhosis with chronic elevations in his alk phos/transaminases. He reports his belly is not tender, bowel movements have been fairly loose. Medical history: Reviewed Medications: Reviewed, patient is a poor historian but otherwise as above Allergies: Patient denies medication allergies Social: Alcohol as above. Denies tobacco use, recreational drug use. Lives at home with his . CODE STATUS: Full code Family history: Noncontributory Principal Diagnosis Seizure/ Alcohol withdrawal Discharge Exam General: lying in bed comfortably. HEENT: Atraumatic, normocephalic. Pulm: CTAB A&P Symmetrical chest rise. No increase work of breathing. No respiratory distress. Cardiac: RRR, -mrg. Radial pulses intact and symmetrical. Abdominal: distended, ascites is likely present. Nontender. collateral veins noted. extremities: no edema Neuro: CN II-XII intacted Discharge Data Allergies Allergy/AdvReac Type Severity Reaction Status Date / Time No Known Allergies Allergy Unverified 02/10/20 10:12 Consultations 02/10/20 14:48 ED Decision to Admit Stat 02/10/20 16:08 Consult Neurology Routine Ordered Studies 02/10/20 09:11 CT head/brain wo con Stat 02/17/20 05:52 CT abd pelvis IV con only Stat 02/25/20 14:42 US abdomen limited Routine Hospital Course (1) Hepatic encephalopathy: Patient was admitted initially for seizures and alcohol withdrawal. However patient had remained intermittently confused over course of his hospital stay. Ddx includes continued alcohol withdrawal, iatrogenic, seizures. - Patient will benefit with continuing thiamine 100 mg PO daily and folic acid. - Discussed with neurology on 02/24 - Because he was inconsistently taking his lamotrigine, we started Keppra. Also focused on lactulose and try to resolve any hepatic encephalopathy. - His mentla status over the past few days have improved. - Discussed with neurology on 02/27 -> Lower lamotrigine dose as it is not ideal with cirrhosis with plan to titrate off. On keppra this was increased. Neurology will see him as well and update recs. - Plan for rehab discharge: awaiting placement. - Recommend lamotrigine doses be withdrawn by decreasing in weekly intervals by 50% over at least 2 weeks. (2) Seizure: Seizure 2/2 seizure disorder with recent cessation of antiepileptic versus alcohol withdrawal. Patient with a history of alcohol abuse, ataxia with last drink 4 to 5 days pr ior to admission. 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 Previously on Lamictal 250 mg every morning, 400 mg every afternoon and Keppra 250 mg daily. Stopped Keppra 6 months ago, patient is a somewhat poor historian and does not remember why this was stopped or if he was advised to stop taking it by physician. - Lamotrigine & Keppra as above (3) Coronary artery disease: Patient with PCI to LAD 11/2018. Continue lisinopril 10 mg, metoprolol XL 100 mg every morning Aspirin initially held for severe thrombocytopenia; this has been restarted. (4) Cirrhosis: CT a/p on 02/16 showed cirrhotic-appearing liver. Given known alcoholism, thought to have alcoholic cirrhosis. - MELD-Na score was 15, giving him a 6% 3-month mortality. - Continue lactulose to aim for 2-3 BMs per day. (5) Hypertension: BP today is 140/80. - Continue lisinopril & metoprolol as able. (6) Heavy alcohol use: Per patient and , drinking at least 10 drinks/day. - Continue folic acid and thiamine (7) Anemia: Likely bone marrow suppression from alcohol. - Stable today. (8) DVT prophylaxis: Heparin 5,000 units SQ Q12h (9) Hip pain: SP fall. negative imaging for acute fracture Total Time Total Time Spent Total Time Spent (In Minutes): 32 Total Time Includes: Examination of the Patient, Discharge Planning and Medication Reconciliation Discharge Plan Discharge Items Patient Disposition: Transfer Intermediate Fac Reason For Visit: SEIZURE, ?ETOH WITHDRAWAL Discharge Diagnosis: Seizure/ Alcohol withdrawal Condition on Discharge: Good Activity: As commented below Activity Comment: as determined by Physical therapy Non-emergency contact: Primary Care Provider Call non-emergency contact if: you have any medication questions Follow-up/Referrals: Giana Wan MD [Primary Care Provider] - Diet: Heart Healthy Addtl Attending Provider Instructions: You have been hospitalized for an acute medical problem. During your stay at [facility], we have made an effort to correct the problem that brought you to the hospital while keeping you as comfortable as possible. Medications were used to bring your condition under control and your discharge instructions will include directions for any medications you should take after leaving the hospital. Please make sure you see your Primary Care Provider as part of your follow up plan. You were admitted with change of mental status. You have liver damage from drinking as well as malnutrition which is likely playing a role with your functional decline over the years. You will benefit by abstaining from alcohol. will recommend to continue to use lactulose to maintain 2-3 bowel movements over the course of the next 3 months. - Recommend lamotrigine doses be withdrawn by decreasing in weekly intervals by 50% over at least 2 weeks. Pending Studies at Discharge: No Stand-Alone Forms: My [facility] Skilled Items Patient informed of condition?: Yes DNR: No Discharge Level of Care: Skilled Communicable Disease: No Discharge Prognosis: Stable Lines: None Urinary Catheter: No Medications and DC Order Prescriptions: New lamotrigine [Lamictal] 25 mg Tablet 50 mg PO BID 30 Days Qty: 120 RF: 0 lisinopril 10 mg Tablet 10 mg PO QAM Qty: 30 RF: 0 levetiracetam [Keppra] 250 mg Tablet 750 mg PO BID 30 Days Qty: 180 RF: 0 lactulose 20 gram/30 mL Solution 20 g PO TID 7 Days Qty: 630 RF: 0 thiamine HCl (vitamin B1) [Vitamin B-1] 100 mg Tablet 100 mg PO QAM Qty: 30 RF: 0 magnesium oxide 400 mg (241.3 mg magnesium) Tablet 400 mg PO BID Qty: 60 RF: 0 folic acid 1 mg Tablet 1 mg PO QAM Qty: 30 RF: 0 Continued allopurinol 300 mg tablet 300 mg PO QAM Qty: 90 RF: 3 metoprolol succinate 100 mg tablet extended release 24 hr 100 mg PO QAM Qty: 90 RF: 3 aspirin 81 mg Tablet,Delayed Release (Dr/Ec) 81 mg PO QAM RF: 0 Discontinued lisinopril 20 mg tablet 20 mg PO QAM RF: 0 lamotrigine [Lamictal] 100 mg Tablet 0 mg PO BID RF: 0 Discharge Orders: Discharge Order (Routine); Ordered 03/04/20 Ordered By: Javier Cat Admission Data Admit Date/Time: 02/10/20 16:04 Attending Provider: Javier Cat Admit Provider: Tito Weir Primary Care Provider: Giana Wan Other Providers: Javier Cat ; [facility] ; [facility], ; Kraig Albert ; Prisca Sarmiento Other Interventions: Discharge Summary Assessment (RN) Last Done: 03/04/20 10:15 Coding Level of Care Code D/C Day Management >30 mins Diagnoses Hepatic encephalopathy K72.90 Seizure R56.9 Coronary artery disease I25.10 Cirrhosis K74.60 Hypertension I10 Heavy alcohol use Z78.9 Anemia D64.9 DVT prophylaxis Z29.9 Hip pain M25.559 Time Spent (min) 32
== END 2020-03-04 11:05 | DRG 897 ==
LOC: ED 08:45 → 2S 16:04 → SUATTDRO 16:04 → 2S 20:08 → 2N 02-19 12:48

== ENCOUNTER 2021-08-04 07:03 | Inpatient (IN) ==
[2021-08-04] MEDS ORDERED: MULTI-VITAMIN INFUSION 10 ML, THIAMINE HCL 100 MG, FOLIC ACID 1 MG in SODIUM CHLORIDE 0... IV ONE (07:49)
[2021-08-04] MEDS ORDERED: LORazepam 2 MG/1 ML VIAL IV STA ×2 (07:49→09:33)
--- NOTE | 2021-08-04 07:53 | Emergency Department Note ---
History of Present Illness General Chief complaint: Seizure Stated complaint: SEIZURE Time Seen by Provider: 08/04/21 07:31 History of Present Illness 56-year-old male presents to the ED with a chief complaint of a seizure. The patient was brought to the ED by ambulance. He was postictal when they picked him up and his blood sugar was 101. The provides most of the history. The patient awoke her with a seizure at 6:15 AM. She states that he had 3 seizures in a period of about an hour. The first seizure lasted for about 20 or 30 seconds. 10 minutes later he had a second seizure that lasted for 20 to 30 seconds. 15 or 20 minutes later he had a third seizure that lasted for about a minute. The patient is chronically on Keppra for seizure history. The feels that the patient did not have any alcohol to drink yesterday. He seemed shaky last night, per the . The patient denies any specific complaints. He states that his mouth feels a little dry. He did bite his tongue. The patient does take his medication as prescribed. Patient normally walks with a walker or cane. Home Medications Medication Instructions Recorded Confirmed Type magnesium oxide 400 mg (241.3 mg 400 mg PO BID #60 tab 03/04/20 08/04/21 Rx magnesium) tablet levetiracetam 250 mg tablet 750 mg PO BID #180 tab 06/21/20 08/04/21 Rx folic acid 1 mg tablet 1 mg PO DAILY #90 tab 01/30/21 08/04/21 Rx lansoprazole 30 mg capsule,delayed 30 mg PO DAILY 01/30/21 08/04/21 History release (Prevacid) rifaximin 550 mg tablet (Xifaxan) 550 mg PO BID #60 tab 01/30/21 08/04/21 Rx thiamine HCl (vitamin B1) 100 mg 100 mg PO DAILY #90 tab 01/30/21 08/04/21 Rx tablet (Vitamin B-1) allopurinol 300 mg tablet 300 mg PO DAILY #90 tab 02/23/21 08/04/21 Rx metoprolol succinate 100 mg 100 mg PO DAILY #90 tab 02/23/21 08/04/21 Rx tablet,extended release 24 hr furosemide 20 mg tablet (Lasix) 20 mg PO DAILY #30 tab 04/09/21 08/04/21 Rx spironolactone 50 mg tablet 50 mg PO DAILY #90 tab 04/16/21 08/04/21 Rx lamotrigine 200 mg tablet 300 mg PO BID 08/04/21 08/04/21 History (Lamictal) Allergies Allergy/AdvReac Type Severity Reaction Status Date / Time No Known Allergies Allergy Verified 08/04/21 08:01 Past Med/Surg History Medical History Alcoholic cerebellar degeneration Alcoholic cirrhosis Anemia Chronic venous insufficiency Coronary artery disease Esophageal varices Gout History of kidney stones Hypertension Left knee DJD Osteoarthritis of right knee Peripheral neuropathy Portal hypertension Right knee DJD Seizure disorder (01/04/13) Situational depression Tremor Surgical History History of anesthesia reaction "was out strong enough for scope to go down, still had gag reflux" History of colonoscopy History of cystoscopy History of esophagogastroduodenoscopy (EGD) History of fracture of skull REPAIR SKULL-NO PLATE History of umbilical hernia repair History of varicose vein ligation and stripping BILAT Family History Father Family history of diabetes mellitus Cardiac disorder Mother Family history of diabetes mellitus Gout Sister Family history of diabetes mellitus Other No family history of adverse response to anesthesia Social History Smoking Status: Never smoker Tobacco Type: Cigarettes Second Hand Exposure: Yes; Hx Alcohol Use: No Hx Substance Use: No Preferred Language: Chadian Communication Ability: Effective Recreational Aide Required: No Beliefs That Will Affect Care: None Current Living Situation: Spouse Feels Safe at Home: Yes Assistive Devices: Cane and Glasses Review of Systems A total of 10 systems reviewed and were otherwise negative Physical Exam Vital Signs Vital Signs - 24 hr 08/04/21 07:12 08/04/21 07:30 08/04/21 08:00 Temperature 36.8 C Temperature Source Oral Pulse Rate 86 77 78 Pulse Rate from SpO2 Sensor 78 Respiratory Rate 17 19 21 Blood Pressure 118/76 106/66 125/72 Blood Pressure Mean 90 79 89 Pulse Oximetry 94 92 92 Oxygen Delivery Method Room Air Room Air Room Air Sepsis Recent Fever Within 48 Hours No Sepsis New/Unexplained Change in Mental Status No Sepsis Action Taken by Nursing No Action Required 08/04/21 08:30 08/04/21 09:04 Temperature Temperature Source Pulse Rate 73 75 Pulse Rate from SpO2 Sensor 73 78 Respiratory Rate 15 14 Blood Pressure 142/80 H 155/90 H Blood Pressure Mean 100 111 Pulse Oximetry 93 94 Oxygen Delivery Method Room Air Room Air Sepsis Recent Fever Within 48 Hours Sepsis New/Unexplained Change in Mental Status Sepsis Action Taken by Nursing CONSTITUTIONAL/VITAL SIGNS: Reviewed / noted above. GENERAL: Non-toxic in appearance. INTEGUMENTARY: Warm, dry, and [place]. Bruising in the arms and legs and abdomen, most of which looks subacute. HEAD: Normocephalic. EYES: without scleral icterus or trauma. ENT/OROPHARYNX: clear and moist. Bilateral tongue contusion with some dried blood in the mouth. No bleeding. LYMPHADENOPATHY/NECK: Is supple without lymphadenopathy or meningismus. RESPIRATORY: Clear to auscultation bilaterally. No increased work of breathing. CARDIOVASCULAR: Regular rate and rhythm. GI/ABDOMEN: Soft and nontender. No organomegaly or pulsatile mass. EXTREMITIES: Warm and well perfused. BACK: No CVA tenderness. NEUROLOGICAL: Intact without focal deficits. PSYCHIATRIC: normal affect. MUSCULOSKELETAL: Normally developed with good muscle tone. TRIAGE NURSING DOCUMENTATION REVIEWED. Course Administered Medications Discontinued Medications Multivitamins 10 ml/ Thiamine HCl 100 mg/ Folic Acid 1 mg/Sodium Chloride 1,011.2 mls @ 1,011.2 mls/hr IV .Q1H ONE Stop: 08/04/21 08:48 Last Admin: 08/04/21 08:24 Dose: 1,011.2 mls/hr Documented by: [id number] Lorazepam (Lorazepam 2 Mg/1 Ml Vial) 1 mg IV NOW STA Stop: 08/04/21 07:50 Last Admin: 08/04/21 08:05 Dose: 1 mg Documented by: [id number] Medical Decision Making Differential Diagnosis Differential includes acute cardiac dysrhythmia, microinfarction, CVA, TIA, d ehydration, anemia, electrolyte disturbance, seizure, trauma, intracranial bleeding, acute vascular catastrophe, thoracic aortic dissection, PE, abdominal aortic aneurysm rupture, infection, hypoglycemia, overdose, trauma. Medical Records Attestation: I reviewed the patient's medical records. Home Medications Current Medication List: was personally reviewed by me Laboratory Data Attestation: I reviewed the patient's lab results. Result diagrams: 08/04/21 07:20 08/04/21 07:20 Lab Results 08/04/21 08/04/21 08/04/21 Range/Units 07:20 07:20 07:20 WBC 4.42 L (4.8-10.8) K/uL RBC 3.82 L (4.7-6.1) M/uL Hgb 13.9 L (14.0-18.0) g/dL Hct 40.6 L (42-52) % MCV 106.3 H (80-100) fL MCH 36.4 H (25-34) pg MCHC 34.2 (32-36) g/dL RDW Std Deviation 50.8 H (36.4-46.3) fL RDW Coeff of Mindy 13.1 (11.5-14.5) % Plt Count 35 L (130-400) K/uL MPV 11.7 H (7.4-10.4) fL Immature Gran % (Auto) 0.2 % Neut % (Auto) 86.7 % Lymph % (Auto) 7.7 % [place] % (Auto) 5.4 % Eos % (Auto) 0.0 % Baso % (Auto) 0.0 % Neut # (Auto) 3.83 (1.4-6.5) K/uL Lymph # (Auto) 0.34 L (1.2-3.4) K/uL [place] # (Auto) 0.24 (0.11-0.59) K/uL Eos # (Auto) 0.00 (0-0.5) K/uL Baso # (Auto) 0.00 (0-0.2) K/uL Immature Gran # (Auto) 0.01 (0.00-0.02) K/uL Platelet Estimate Decreased L (Normal) RBC Morphology Unremarkable PT 14.3 H (9.0-12.0) Seconds INR 1.4 H (0.9-1.1) APTT 32.4 H (21.0-31.0) Seconds PTT Ratio 1.2 Sodium 139 (136-145) mmol/L Potassium 3.1 L (3.5-5.1) mmol/L Chloride 97 L (98-107) mmol/L Carbon Dioxide 15 L (21-32) mmol/L Anion Gap 27 H (3-11) BUN 5 L (6-23) mg/dl Creatinine 0.72 (0.6-1.4) mg/dl Est Cr Clr Drug Dosing 137.6 ml/min Est GFR ( Amer) 119.2 ml/min Est GFR (Non-Af Amer) 102.8 ml/min BUN/Creatinine Ratio 6.9 L (10-20) Glucose 139 H (70-99(Fasting)) mg/dl Lactate (0.4-2.0) mmol/L Calcium 9.1 (8.5-10.1) mg/dl Phosphorus 2.7 (2.5-4.9) mg/dl Magnesium 1.5 L (1.7-2.4) mg/dl Total Bilirubin 3.2 H (0.2-1.0) mg/dl AST 162 H (13-39) U/L ALT 35 (7-52) U/L Alkaline Phosphatase 219 H (34-104) U/L Total Creatine Kinase 102 (30-223) U/L Total Protein 7.5 (6.0-8.3) gm/dl Albumin 3.3 L (3.4-5.0) gm/dl Globulin 4.2 H (2.5-4.0) gm/dl Albumin/Globulin Ratio 0.8 L (0.9-2) Ethyl Alcohol mg/dL (<10.0) mg/dl 08/04/21 08/04/21 Range/Units 08:03 08:03 WBC (4.8-10.8) K/uL RBC (4.7-6.1) M/uL Hgb (14.0-18.0) g/dL Hct (42-52) % MCV (80-100) fL MCH (25-34) pg MCHC (32-36) g/dL RDW Std Deviation (36.4-46.3) fL RDW Coeff of Mindy (11.5-14.5) % Plt Count (130-400) K/uL MPV (7.4-10.4) fL Immature Gran % (Auto) % Neut % (Auto) % Lymph % (Auto) % [place] % (Auto) % Eos % (Auto) % Baso % (Auto) % Neut # (Auto) (1.4-6.5) K/uL Lymph # (Auto) (1.2-3.4) K/uL [place] # (Auto) (0.11-0.59) K/uL Eos # (Auto) (0-0.5) K/uL Baso # (Auto) (0-0.2) K/uL Immature Gran # (Auto) (0.00-0.02) K/uL Platelet Estimate (Normal) RBC Morphology PT (9.0-12.0) Seconds INR (0.9-1.1) APTT (21.0-31.0) Seconds PTT Ratio Sodium (136-145) mmol/L Potassium (3.5-5.1) mmol/L Chloride (98-107) mmol/L Carbon Dioxide (21-32) mmol/L Anion Gap (3-11) BUN (6-23) mg/dl Creatinine (0.6-1.4) mg/dl Est Cr Clr Drug Dosing ml/min Est GFR ( Amer) ml/min Est GFR (Non-Af Amer) ml/min BUN/Creatinine Ratio (10-20) Glucose (70-99(Fasting)) mg/dl Lactate 9.4 H* (0.4-2.0) mmol/L Calcium (8.5-10.1) mg/dl Phosphorus (2.5-4.9) mg/dl Magnesium (1.7-2.4) mg/dl Total Bilirubin (0.2-1.0) mg/dl AST (13-39) U/L ALT (7-52) U/L Alkaline Phosphatase (34-104) U/L Total Creatine Kinase (30-223) U/L Total Protein (6.0-8.3) gm/dl Albumin (3.4-5.0) gm/dl Globulin (2.5-4.0) gm/dl Albumin/Globulin Ratio (0.9-2) Ethyl Alcohol mg/dL 21.1 H (<10.0) mg/dl Imaging Data My Impression: Chest x-ray: Per my interpretation shows no acute disease. No pneumonia or pneumothorax ECG Data Attestation: I personally reviewed and interpreted this ECG as follows: Additional Comments: Twelve-lead EKG: Per my interpretation shows a normal sinus rhythm at a rate of 85. No ST elevation. No PVCs. Normal QTC. MDM Narrative Patient presents to the ED after having 3 seizures in a period of an hour. This occurred around 6 AM this morning. Witnessed by the . Patient did bite his tongue. His exam reveals bruising in the upper and lower extremities. He is an alcoholic. does not think he had anything to drink yesterday he was shaky last night. Does chronically take Keppra for seizure disorder. The patient's EKG shows a normal sinus rhythm. Potassium is 3.1 CBC was unremarkable. BUN is 23. Bicarb is 15. Anion gap is 27. Total bilirubin is 3.2. This is up from .May of last year. Magnesium was 1.5. AST is 162 alkaline phosphatase is 219. INR is 1.4. Lactate is 9.4. Chest x-ray did not show acute process. The patient was treated with banana bag as well as IV lorazepam. He was given oral potassium. He required a second dose of lorazepam as he was starting to have some tremors. I spoke with the hospitalist, who will see the patient for count includes the [facility] inpatient evaluation and care. Impression & Plan Seizure, Status epilepticus, Alcohol withdrawal Discharge Plan Visit Data Chief Complaint: Seizure Stated Complaint: SEIZURE ED Provider: Pacheco Emery Discharge Problem: Seizure, Status epilepticus, Alcohol withdrawal Patient Disposition: Being Evaluated by Hospitalist Forms Stand Alone Forms: My [facility] Prescriptions Prescriptions: No Action levetiracetam 250 mg tablet 750 mg PO BID Qty: 180 RF: 5 allopurinol 300 mg tablet 300 mg PO DAILY Qty: 90 RF: 3 metoprolol succinate 100 mg tablet extended release 24 hr 100 mg PO DAILY Qty: 90 RF: 3 furosemide [Lasix] 20 mg tablet 20 mg PO DAILY Qty: 30 RF: 2 spironolactone 50 mg tablet 50 mg PO DAILY Qty: 90 RF: 3 lansoprazole [Prevacid] 30 mg capsule,delayed release(DR/EC) 30 mg PO DAILY RF: 0 Xifaxan 550 mg tablet 550 mg PO BID Qty: 60 RF: 0 thiamine HCl (vitamin B1) [Vitamin B-1] 100 mg tablet 100 mg PO DAILY Qty: 90 RF: 3 folic acid 1 mg tablet 1 mg PO DAILY Qty: 90 RF: 3 magnesium oxide 400 mg (241.3 mg magnesium) Tablet 400 mg PO BID Qty: 60 RF: 0 lamotrigine [Lamictal] 200 mg Tablet 300 mg PO BID RF: 0 Referrals Referrals: Giana Wan MD [Primary Care Provider] -
[2021-08-04 08:18] LABS: Albumin Globulin Ratio 0.8 (0.9-2); Albumin Level 3.3 gm/dl (3.4-5.0); BUN Creatinine Ratio 6.9 (10-20); Bilirubin,Total 3.2 mg/dl (0.2-1.0); Calcium 9.1 mg/dl (8.5-10.1); Creatinine Clr Calc Pharmacy 137.6 ml/min; Est GFR (African American) 119.2 ml/min; Est GFR (Non-African American) 102.8 ml/min; Globulin 4.2 gm/dl (2.5-4.0); Magnesium 1.5 mg/dl (1.7-2.4); Phosphorus 2.7 mg/dl (2.5-4.9); Potassium 3.1 mmol/L (3.5-5.1); Total Protein 7.5 gm/dl (6.0-8.3)
[2021-08-04 08:24] LABS: INR 1.4 (0.9-1.1); Partial Thromboplastin Ratio 1.2; Partial Thromboplastin Time 32.4 Seconds (21.0-31.0); Prothrombin Time 14.3 Seconds (9.0-12.0)
[2021-08-04 08:56] LABS: Hematocrit (blood only) 40.6 % (42-52); Hemoglobin 13.9 g/dL (14.0-18.0); Mean Corpuscular Hemoglobin 36.4 pg (25-34); Mean Corpuscular Hgb Conc 34.2 g/dL (32-36); Mean Corpuscular Volume 106.3 fL (80-100); RDW Coefficient of Variation 13.1 % (11.5-14.5); RDW Standard Deviation 50.8 fL (36.4-46.3); Red Blood Count 3.82 M/uL (4.7-6.1); White Blood Count 4.42 K/uL (4.8-10.8)
[2021-08-04 09:09] LABS: Immature Granulocytes # (auto) 0.01 K/uL (0.00-0.02); Immature Granulocytes % (auto) 0.2 %; Lymphocytes # (auto) 0.34 K/uL (1.2-3.4); Lymphocytes % (auto) 7.7 %; Mean Platelet Volume 11.7 fL (7.4-10.4); Monocytes # (auto) 0.24 K/uL (0.11-0.59); Monocytes % (auto) 5.4 %; Neutrophils # (auto) 3.83 K/uL (1.4-6.5); Neutrophils % (auto) 86.7 %; Platelet Count 35 K/uL (130-400); Platelet Estimate Decreased (Normal); RBC Morphology Unremarkable
[2021-08-04] MEDS ORDERED: POTASSIUM CHLORIDE 10 MEQ TABCR PO STA (09:09)
--- NOTE | 2021-08-04 09:22 | XRay Report ---
XR chest 1V portable CLINICAL HISTORY: sz TECHNIQUE: Single frontal radiograph of the chest was obtained. Comparison: Comparison is made to chest radiograph 02/25/2020 FINDINGS: No lines and tubes are seen. The cardiomediastinal silhouette is normal. The lungs are clear. No evid ence of pleural effusion or pneumothorax. IMPRESSION: No acute chest disease. ACT 112: Negative or not required by law. Electronically signed by: Gigi Gomez M.D. 08/04/2021 9:21 AM
[2021-08-04 09:42] LABS: Amphetamines+Metham, Urine Neg (Neg); Barbiturates, Urine Neg (Neg); Benzodiazepine, Urine Neg (Neg); Cocaine, Urine Neg (Neg); MDMA (Ecstacy), Urine Neg (Neg); Methadone, Urine Neg (Neg); Opiate, Urine Neg (Neg); Phencyclidine, Urine Neg (Neg)
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
--- NOTE | 2021-08-04 10:21 | Electrocardiogram Report ---
Test Reason : Blood Pressure : / mmHG Vent. Rate : 085 BPM Atrial Rate : 085 BPM P-R Int : 168 ms QRS Dur : 096 ms QT Int : 420 ms P-R-T Axes : 045 -22 024 degrees QTc Int : 499 ms Normal sinus rhythm Increased R/S ratio in V1, consider early transition or posterior infarct Nonspecific ST abnormality Prolonged QT Abnormal ECG When compared with ECG of 10-FEB-2020 09:02, No significant change was found Confirmed by Deandre Martines ([id number]) on 08/04/2021 10:20:48 AM Referred By: REFERRED SELF Confirmed By:Deandre Martines
[2021-08-04] MEDS ORDERED: chlordiazePOXIDE ALCOHOL WITHDRAWL 50MG PO STA (10:29)
[2021-08-04] MEDS: MAGNESIUM SULFATE / D5W 1 GM/100 ML BAG IV SCH ×2 (11:22→14:09)
[2021-08-04] MEDS: MAGNESIUM OXIDE 400 MG TAB PO SCH (11:22)
[2021-08-04] MEDS ORDERED: ATIVAN IV ALCOHOL WITHDRAWL IV PRN (12:30)
[2021-08-04] MEDS ORDERED: POLYETHYLENE (MIRALAX) 17 GM PACK PO PRN (12:30)
[2021-08-04] MEDS ORDERED: CHLORDIAZEPOXIDE 50MG STARTING DOSE PO SCH (12:30)
[2021-08-04] MEDS ORDERED: THIAMINE HCL 500 MG in SODIUM CHLORIDE 0.9% 50 ML IV SCH (13:00)
--- NOTE | 2021-08-04 13:45 | CT Scan Report ---
CT head/brain wo con CLINICAL HISTORY: seizure Technique: Contiguous axial CT images of the head were acquired from the base of the skull to the hattie jr without intravenous contrast administration. Images were viewed in brain, [facility]. Automated dose lowering techniques and/or adjustment according to patient size were utilized for this exam. Comparison: Comparison is made to CT head 02/10/2020 Findings: Areas of decreased attenuation are present in the periventricular and subcortical white matter bilate rally consistent with small vessel ischemic disease. Generalized cerebral atrophy with commensurate e nlargement of the ventricles, sulci, and cisterns is also present. There is no acute intracranial hem orrhage or evidence of acute territorial infarction. No shift of the midline structures, mass effect, or extra-axial abnormalities are shown. Atherosclerotic calcifications are present in the intracran ial segments of the internal carotid arteries. Imaged portions of the paranasal sinuses and mastoid air cells are clear. The orbits appear normal. There are no acute fractures of the calvaria or scalp swelling. Impression: No acute intracranial hemorrhage, no evidence of acute territorial infarction or other acute intracra nial disease process. ACT 112: Negative or not required by law. Electronically signed by: Gigi Gomez M.D. 08/04/2021 1:43 PM
[2021-08-04] MEDS ORDERED: THIAMINE HCL 100 MG TAB PO SCH (14:00)
[2021-08-04] MEDS: POTASSIUM CHLORIDE 20 MEQ/15 ML UDC PO SCH ×2 (14:09→19:44)
[2021-08-04] MEDS: chlordiazePOXIDE HCl 25 MG CAP PO SCH ×2 (14:27→19:44)
--- NOTE | 2021-08-04 14:35 | Ultrasound Report ---
US liver CLINICAL HISTORY: HCC screening TECHNIQUE: Multiple real-time sonographic images of the right upper quadrant were obtained. Comparison: None available at the time of this dictation. FINDINGS: The liver is diffusely coarsened in echotexture, with a nodular contour. The liver appears shrunken i n appearance. These findings are suggestive of cirrhosis. No focal mass lesions are seen. No int rahepatic ductal dilatation is seen. Low level internal echoes are identified layering dependently w ithin the gallbladder, which is consistent with gallbladder sludge. Likely gallstones are seen. The g allbladder wall is not thickened. There is no pericholecystic fluid present. A sonographic Millan's sign was not elicited by the sales and production manager. The common duct measures 0.6 cm in diameter at the level of the hepatic artery. The pancreas is not well visualized secondary to overlying bowel gas. The right kidney shows normal echogenicity, cortical thickness and renal contour. The right kidney sh ows no evidence of hydronephrosis or mass. No ascites or free fluid is seen in Andrade's pouch. IMPRESSION: Cirrhosis of the liver is seen without evidence of hepatic mass. ACT 112: Negative or not required by law. Electronically signed by: Gigi Gomez M.D. 08/04/2021 2:33 PM
[2021-08-04] MEDS: lamoTRIgine 100 MG TAB PO SCH (19:43)
[2021-08-04] MEDS: rifAXIMin 550 MG TABLET PO SCH (19:44)
[2021-08-04] MEDS: levETIRAcetam 250 MG TAB PO SCH (19:44)
[2021-08-05] MEDS: chlordiazePOXIDE HCl 25 MG CAP PO SCH ×4 (00:12→21:50)
[2021-08-05 06:04] LABS: Albumin Globulin Ratio 0.8 (0.9-2); Bilirubin,Total 4.4 mg/dl (0.2-1.0); Calcium 8.6 mg/dl (8.5-10.1); Creatinine Clr Calc Pharmacy 147.3 ml/min; Est GFR (African American) 122.8 ml/min; Est GFR (Non-African American) 105.9 ml/min; Globulin 3.8 gm/dl (2.5-4.0); Magnesium 1.7 mg/dl (1.7-2.4); Potassium 3.2 mmol/L (3.5-5.1); Total Protein 6.8 gm/dl (6.0-8.3)
[2021-08-05 06:19] LABS: Hematocrit (blood only) 37.2 % (42-52); Hemoglobin 12.6 g/dL (14.0-18.0); Mean Corpuscular Hemoglobin 36.3 pg (25-34); Mean Corpuscular Hgb Conc 33.9 g/dL (32-36); Mean Corpuscular Volume 107.2 fL (80-100); Mean Platelet Volume 12.2 fL (7.4-10.4); Platelet Count 30 K/uL (130-400); RDW Coefficient of Variation 13.2 % (11.5-14.5); RDW Standard Deviation 51.4 fL (36.4-46.3); Red Blood Count 3.47 M/uL (4.7-6.1); White Blood Count 3.46 K/uL (4.8-10.8)
[2021-08-05 06:20] LABS: Basophils # (auto) 0.01 K/uL (0-0.2); Basophils % (auto) 0.3 %; Eosinophils # (auto) 0.02 K/uL (0-0.5); Eosinophils % (auto) 0.6 %; Lymphocytes # (auto) 0.44 K/uL (1.2-3.4); Lymphocytes % (auto) 12.7 %; Monocytes # (auto) 0.46 K/uL (0.11-0.59); Monocytes % (auto) 13.3 %; Neutrophils # (auto) 2.53 K/uL (1.4-6.5); Neutrophils % (auto) 73.1 %; Platelet Estimate SIGNIFIC DECREASED (Normal)
[2021-08-05] MEDS: LORazepam 2 MG/1 ML VIAL IV PRN ×7 (07:50→22:20)
[2021-08-05] MEDS: POTASSIUM CHLORIDE CRTAB 20 MEQ TABCR PO SCH ×2 (07:56→13:30)
[2021-08-05] MEDS: SPIRONOLACTONE 25 MG TAB PO SCH (07:58)
[2021-08-05] MEDS: rifAXIMin 550 MG TABLET PO SCH ×2 (07:58→21:49)
[2021-08-05] MEDS: lamoTRIgine 100 MG TAB PO SCH ×2 (07:58→21:49)
[2021-08-05] MEDS: levETIRAcetam 250 MG TAB PO SCH ×2 (07:58→21:49)
[2021-08-05] MEDS: MAGNESIUM OXIDE 400 MG TAB PO SCH (07:58)
[2021-08-05] MEDS: FUROSEMIDE 20 MG TAB PO SCH (07:59)
[2021-08-05] MEDS: FOLIC ACID 1 MG TAB PO SCH (07:59)
[2021-08-05] MEDS: METOPROLOL SUCC 50MG EXT REL TAB PO SCH (07:59)
[2021-08-05] MEDS: allopurinoL 300 MG TAB PO SCH (07:59)
[2021-08-05] MEDS: PANTOprazole 40 MG TAB PO SCH (08:00)
[2021-08-05] MEDS: POTASSIUM CHLORIDE 20 MEQ/15 ML UDC PO SCH (08:00)
[2021-08-05] MEDS ORDERED: THIAMINE HCL 300 MG in SODIUM CHLORIDE 0.9% 50 ML IV SCH (09:00)
--- NOTE | 2021-08-05 11:40 | Hospitalist Progress Note ---
Date of Service August 05, 2021 Assessment & Plan (1) Seizure: Plan: Seizure 2/2 EtoH Withdrwawl No leukocytosis on admit, Hgb 13.9, platelet 35. INR 1.4 in the setting of cirrhosis. BSG greater than 100 at EMS, 139 in ER Lactate 9.4 likely due to seizure. Subsequently normalized on recheck. Continue Keppra 750 mg p.o. twice daily Continue Lamictal 300 mg p.o. twice daily Ethyl alcohol on admit 21.1 COVID pendingCXR: No acute disease EKG: Normal sinus rhythm, QT 499 - Pt reports last drink 1-2 days ago. At least 8 beers per sitting. Doesn't remember how much he drank in last sitting. EtoH pos on admit 21.1 - Continue AWSS scoring + librium protocol Ativan 2 mg push on-call for seizure - CT-H without acute findings - Pt with developing and worsening alcohol withdrawal encephalopathy. First sx 08/04, suspect peak ~08/06-08/07 based on past hx. Pt and did express desire to get through withdrawal with hopes to reduce/abstain after at onset. Ammonia 52, on rifaxamin. 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 Platelet count is again low, hold and resume every other day once improved Continue metoprolol 100 mg p.o. daily, hold for hypotension Cirrhosis, alcoholic with history of HCC Patient reported history of hepatitis C. Prior outpatient antibody tests negative HCV RNA Continue rifaximin Continue spironolactone 50 mg daily Continue Lasix 20 mg daily Continue thiamine supplementation AST 162, ALT normal, alk phos 219 on admission. Total bili 3.2. AST downtrending, bili uptrending 08/05 - Hepatocellular Carcinoma screening --> US Liver without signs of hepatic masses. Cirrhosis appreciated. 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 Patient does answer questions and is alert, but is not oriented to place or date and is responding to visual hallucinations. Is reaching handout into the air. is on the phone at bedside with patient. No respiratory distress, is guarding airway. Has received 5 mg of Ativan in preceding hours for breakthrough, continues on Librium protocol. Placed on one-to-one for redirection, patient calm and redirectable at bedside. No further seizures overnight. Review of Systems Review of Systems: Unobtainable due to cognitive status Physical Exam Physical Exam: General: Tremulous, oriented to name only, reaching hands out and responding to internal stimuli. Mumbles incoherent answers to questions. Guarding airway. HEENT: Atraumatic, normocephalic. Vision/hearing grossly intact Pulm: Symmetrical chest rise. No increase in work of breathing. No respiratory distress. Cardiac: RRR, systolic murmur previously known to patient Radial pulses intact and symmetrical. Abdominal: Softly distended, nontender. Bowel sounds present. Results & Data Results & Data ([facility]) Vital Signs (Past 12 Hours) Vital Signs Temp Pulse Resp BP Pulse Ox 08/05/21 11:10 37.0 C 77 19 132/76 94 08/05/21 09:28 37.1 C 104 H 23 110/70 95 08/05/21 07:21 37.3 C 71 18 139/78 95 08/05/21 03:38 37.4 C 77 18 164/92 H 95 PG Care Time/CCT Total # of Minutes Spent Total Time Spent with Patient: Total time spent is greater than 50% in coordination of care (as documented) at patient's floor/unit and/or counseling patient: Coding Level of Care Code 63312 Subseq Hosp Care Lvl 3 Diagnoses Seizure R56.9 Alcohol withdrawal F10.239 Tremor R25.1 Portal hypertension K76.6 Peripheral neuropathy G62.9 Esophageal varices I85.00 Coronary artery disease I25.10 Chronic venous insufficiency I87.2 Alcoholic cirrhosis K70.30 Hypertension I10 Anemia D64.9
[2021-08-05] MEDS ORDERED: CHLORDIAZEPOXIDE 50MG 2ND DOSE PO SCH (14:00)
[2021-08-05] MEDS ORDERED: OLANZapine 10 MG/2.1 ML SDV IM STA (22:13)
[2021-08-06] MEDS: LORazepam 2 MG/1 ML VIAL IV PRN ×5 (01:08→19:55)
[2021-08-06 05:55] LABS: Hematocrit (blood only) 40.6 % (42-52); Hemoglobin 13.8 g/dL (14.0-18.0); Mean Corpuscular Hemoglobin 36.2 pg (25-34); Mean Corpuscular Volume 106.6 fL (80-100); Mean Platelet Volume 11.3 fL (7.4-10.4); Platelet Count 37 K/uL (130-400); RDW Coefficient of Variation 13.3 % (11.5-14.5); RDW Standard Deviation 51.9 fL (36.4-46.3); Red Blood Count 3.81 M/uL (4.7-6.1); White Blood Count 3.21 K/uL (4.8-10.8)
[2021-08-06] MEDS: chlordiazePOXIDE HCl 25 MG CAP PO SCH ×3 (06:04→20:12)
[2021-08-06 06:14] LABS: Basophils # (auto) 0.01 K/uL (0-0.2); Basophils % (auto) 0.3 %; Eosinophils # (auto) 0.03 K/uL (0-0.5); Eosinophils % (auto) 0.9 %; Immature Granulocytes # (auto) 0.01 K/uL (0.00-0.02); Immature Granulocytes % (auto) 0.3 %; Lymphocytes # (auto) 0.44 K/uL (1.2-3.4); Lymphocytes % (auto) 13.7 %; Monocytes # (auto) 0.38 K/uL (0.11-0.59); Monocytes % (auto) 11.8 %; Neutrophils # (auto) 2.34 K/uL (1.4-6.5); Polychromasia 1+
[2021-08-06 07:15] LABS: Anion Gap 8 (3-11); Blood Urea Nitrogen 9 mg/dl (6-23); Calcium 9.2 mg/dl (8.5-10.1); Carbon Dioxide 27 mmol/L (21-32); Chloride 100 mmol/L (98-107); Creatinine Clr Calc Pharmacy 140.3 ml/min; Est GFR (African American) 121.3 ml/min; Est GFR (Non-African American) 104.6 ml/min; Glucose 89 mg/dl (70-99(Fasting)); Sodium 135 mmol/L (136-145)
[2021-08-06] MEDS ORDERED: THIAMINE HCL 100 MG in SYRINGE 9 ML IV SCH (09:00)
[2021-08-06] MEDS: lamoTRIgine 100 MG TAB PO SCH ×2 (10:32→20:12)
[2021-08-06] MEDS: allopurinoL 300 MG TAB PO SCH (10:32)
[2021-08-06] MEDS: FUROSEMIDE 20 MG TAB PO SCH (10:32)
[2021-08-06] MEDS: FOLIC ACID 1 MG TAB PO SCH (10:32)
[2021-08-06] MEDS: MAGNESIUM OXIDE 400 MG TAB PO SCH (10:33)
[2021-08-06] MEDS: levETIRAcetam 250 MG TAB PO SCH (10:33)
[2021-08-06] MEDS: PANTOprazole 40 MG TAB PO SCH (10:33)
[2021-08-06] MEDS: METOPROLOL SUCC 50MG EXT REL TAB PO SCH (10:33)
[2021-08-06] MEDS: SPIRONOLACTONE 25 MG TAB PO SCH (10:34)
[2021-08-06] MEDS: rifAXIMin 550 MG TABLET PO SCH ×2 (10:34→20:12)
[2021-08-06] MEDS ORDERED: METOPROLOL TARTRATE 1 MG/ML VIAL IV PRN (10:48)
[2021-08-06] MEDS: levETIRAcetam 750 MG in 0.9 % SODIUM CHLORIDE 100 ML IV SCH ×2 (11:21→20:03)
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
[2021-08-06] MEDS ORDERED: CHLORDIAZEPOXIDE 25MG 3RD DOSE PO SCH (14:00)
--- NOTE | 2021-08-06 16:31 | Critical Care Consultation ---
Date of Consultation August 06, 2021 Assessment & Plan (1) Alcohol withdrawal: Reason Critically Ill: 56-year-old male with a significant past medical history for alcohol abuse and withdrawal seizures who appears to be in acute delirium tremens. PLAN: Neuro: Acute on chronic alcohol abuse Acute delirium tremens History seizure disorder Continue Keppra 750 mg p.o. twice daily -Converted to IV Continue Lamictal 300 mg p.o. twice daily -On hold secondary to n.p.o. - Pt reports last drink 1-2 days ago. 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 Platelet count is again low, hold and resume every other day once improved Continue metoprolol 100 mg p.o. daily, hold for hypotension EKG: Normal sinus rhythm, QT 499 Fluids/Renal: Daily electrolytes ID: Monitor fever curve GI/Nutrition: Cirrhosis, alcoholic with history of HCC Patient reported history of hepatitis C. Prior outpatient antibody tests negative HCV RNA Continue rifaximin Continue spironolactone 50 mg daily Continue Lasix 20 mg daily Continue thiamine supplementation - Hepatocellular Carcinoma screening -->US Liver without signs of hepatic masses. Cirrhosis appreciated. Patient with outpatient follow-up to [place] [facility] EGD 08/11: Grade 1 varices in lower third of the esophagus Heme: Pancytopenia Suspect alcohol mediated marrow suppression No signs of active bleeding DVT prophylaxis: SCDs, defer pharmaco ppx in the setting of low plt~30k Endocrine: ICU hyperglycemia protocol Vascular access: Peripheral IVs Code Status: Full code Disposition: ICU I have personally spent 50 minutes of critical care time in the direct management of this patient. This is a life/limb threatening event. This includes time spent evaluating patient, direct bedside care, chart review, placing orders, interpretation of diagnostic studies, discussion with consultants, patient, and/or family members regarding treatment decisions, as well as other required patient management activities. This time is exclusive of all separately billable procedures, and teaching time and separate from and in addition to any other critical care service time. (2) Seizure: (3) Seizure disorder: (4) Portal hypertension: (5) Alcoholic cirrhosis: (6) Alcoholic cerebellar degeneration: (7) Hypertension: History of Present Illness Reason for Consultation: Acute alcohol withdrawal Requesting Physician: Tito Weir MD Attending Physician: Tito Weir MD History of Present Illness History is obtained from prior records secondary to decreased mental status: Uvaldo is a 56-year-old male with a past medical history of seizure, alcohol withdrawal, alcohol dependence, alcohol cirrhosis, hypertension, alcoholic cerebellar degeneration, anemia, osteoarthritis of the right knee, portal hypertension, and chronic venous insufficiency who was brought to the ER by ambulance for seizure and was postictal on EMS evaluation with a blood sugar of 101. Patient was EMS was called when patient awoke his he has been recommended for admission for seizure suspected in the setting of alcohol withdrawal Seen at bedside. Patient awakens eyes on command, oriented to name only. Acutely confused and does not answer questions appropriately. Does wave hands intermittently, minimal tremor. No tachycardia. Patient has received over 12 mg of Ativan in the preceding evening. Is spitting out and not taking p.o. at this time. Subjective limited by mental status. Allergies Allergy/AdvReac Type Severity Reaction Status Date / Time No Known Allergies Allergy Verified 08/04/21 08:01 Home Medications Medication Instructions Recorded Confirmed Type magnesium oxide 400 mg (241.3 mg 400 mg PO BID #60 tab 03/04/20 08/04/21 Rx magnesium) tablet levetiracetam 250 mg tablet 750 mg PO BID #180 tab 06/21/20 08/04/21 Rx folic acid 1 mg tablet 1 mg PO DAILY #90 tab 01/30/21 08/04/21 Rx lansoprazole 30 mg capsule,delayed 30 mg PO DAILY 01/30/21 08/04/21 History release (Prevacid) rifaximin 550 mg tablet (Xifaxan) 550 mg PO BID #60 tab 01/30/21 08/04/21 Rx thiamine HCl (vitamin B1) 100 mg 100 mg PO DAILY #90 tab 01/30/21 08/04/21 Rx tablet (Vitamin B-1) allopurinol 300 mg tablet 300 mg PO DAILY #90 tab 02/23/21 08/04/21 Rx metoprolol succinate 100 mg 100 mg PO DAILY #90 tab 02/23/21 08/04/21 Rx tablet,extended release 24 hr furosemide 20 mg tablet (Lasix) 20 mg PO DAILY #30 tab 04/09/21 08/04/21 Rx spironolactone 50 mg tablet 50 mg PO DAILY #90 tab 04/16/21 08/04/21 Rx lamotrigine 200 mg tablet 300 mg PO BID 08/04/21 08/04/21 History (Lamictal) Patient History Medical History Alcoholic cerebellar degeneration Alcoholic cirrhosis Anemia Chronic venous insufficiency Coronary artery disease Esophageal varices Gout History of kidney stones Hypertension Left knee DJD Osteoarthritis of right knee Peripheral neuropathy Portal hypertension Right knee DJD Seizure disorder (01/04/13) Situational depression Tremor Surgical History History of anesthesia reaction "was out strong enough for scope to go down, still had gag reflux" History of colonoscopy History of cystoscopy History of esophagogastroduodenoscopy (EGD) History of fracture of skull REPAIR SKULL-NO PLATE History of umbilical hernia repair History of varicose vein ligation and stripping BILAT Family History Father Family history of diabetes mellitus Cardiac disorder Mother Family history of diabetes mellitus Gout Sister Family history of diabetes mellitus Other No family history of adverse response to anesthesia Social History Smoking Status: Former smoker Tobacco Type: Cigarettes Second Hand Exposure: Yes; Hx Alcohol Use: Yes Alcohol type: beer Hx Substance Use: No Preferred Language: Greenlandic Communication Ability: Effective Sample Grinder Required: No Beliefs That Will Affect Care: None Current Living Situation: Spouse Other Information That Helps Us Care for You: No Feels Safe at Home: Yes Safety Concerns: Feels Safe At This Time Assistive Devices: Cane and Walker Review of Systems Review of Systems: Unobtainable due to reduced consciousness Physical Exam Physical Exam: General: Somnolent nontoxic. Skin: Warm, dry, Head: Atraumatic Ears, nose, mouth and throat: airway patent Cardiovascular: Normal peripheral perfusion, tachycardia Respiratory: no respiratory distress Gastrointestinal: Non distended Musculoskeletal: No deformity Results & Data Results & Data ([facility]) Vital Signs (Past 12 Hours) Vital Signs Temp Pulse Pulse Resp BP BP BP 08/06/21 15:04 92 H 28 H 153/84 H 08/06/21 15:00 89 21 08/06/21 14:00 82 22 149/97 H 08/06/21 13:35 82 28 H 152/99 H 08/06/21 13:00 86 7 L 08/06/21 12:00 84 19 08/06/21 11:05 37.0 C 71 21 175/86 H 08/06/21 11:00 86 21 08/06/21 10:00 86 9 L 08/06/21 09:03 36.5 C 79 22 164/88 H 08/06/21 09:00 81 10 L 08/06/21 08:00 78 28 H 08/06/21 07:07 36.7 C 84 24 153/101 H 08/06/21 07:00 99 H 28 H 08/06/21 06:00 78 19 08/06/21 05:00 78 9 L 08/06/21 04:59 36.3 C L 77 21 159/84 H Pulse Ox Pulse Ox 08/06/21 15:04 95 08/06/21 15:00 93 08/06/21 14:00 96 08/06/21 13:35 97 08/06/21 13:00 08/06/21 12:00 95 08/06/21 11:05 96 08/06/21 11:00 08/06/21 10:00 08/06/21 09:03 96 08/06/21 09:00 08/06/21 08:00 08/06/21 07:07 96 08/06/21 07:00 08/06/21 06:00 08/06/21 05:00 08/06/21 04:59 95 Critical Care Results & Data Vital Signs (Past 12 Hours) Vital Signs Temp Pulse Pulse Resp BP BP BP 08/06/21 15:04 92 H 28 H 153/84 H 08/06/21 15:00 89 21 08/06/21 14:00 82 22 149/97 H 08/06/21 13:35 82 28 H 152/99 H 08/06/21 13:00 86 7 L 08/06/21 12:00 84 19 08/06/21 11:05 37.0 C 71 21 175/86 H 08/06/21 11:00 86 21 08/06/21 10:00 86 9 L 08/06/21 09:03 36.5 C 79 22 164/88 H 08/06/21 09:00 81 10 L 08/06/21 08:00 78 28 H 08/06/21 07:07 36.7 C 84 24 153/101 H 08/06/21 07:00 99 H 28 H 08/06/21 06:00 78 19 08/06/21 05:00 78 9 L 08/06/21 04:59 36.3 C L 77 21 159/84 H Pulse Ox Pulse Ox 08/06/21 15:04 95 08/06/21 15:00 93 08/06/21 14:00 96 08/06/21 13:35 97 08/06/21 13:00 08/06/21 12:00 95 08/06/21 11:05 96 08/06/21 11:00 08/06/21 10:00 08/06/21 09:03 96 08/06/21 09:00 08/06/21 08:00 08/06/21 07:07 96 08/06/21 07:00 08/06/21 06:00 08/06/21 05:00 08/06/21 04:59 95 Lab & Micro Results (Past 24 Hours) RBC 3.81 M/uL (4.7-6.1) L 08/06/21 WBC 3.21 K/uL (4.8-10.8) L 08/06/21 Hgb 13.8 g/dL (14.0-18.0) L 08/06/21 Hct 40.6 % (42-52) L 08/06/21 MCV 106.6 fL (80-100) H 08/06/21 MCH 36.2 pg (25-34) H 08/06/21 MCHC 34.0 g/dL (32-36) 08/06/21 RDW Standard Deviation 51.9 fL (36.4-46.3) H 08/06/21 RDW Coefficient of Variation 13.3 % (11.5-14.5) 08/06/21 Plt Count 37 K/uL (130-400) L 08/06/21 MPV 11.3 fL (7.4-10.4) H 08/06/21 Neutrophils (%) (Auto) 73.0 % 08/06/21 Lymphocytes (%) (Auto) 13.7 % 08/06/21 Monocytes # (Auto) 0.38 K/uL (0.11-0.59) 08/06/21 Eosinophils # (Auto) 0.03 K/uL (0-0.5) 08/06/21 Immature Granulocyte % (Auto) 0.3 % 08/06/21 Neutrophils # (Auto) 2.34 K/uL (1.4-6.5) 08/06/21 Lymphocytes # (Auto) 0.44 K/uL (1.2-3.4) L 08/06/21 Monocytes # (Auto) 0.38 K/uL (0.11-0.59) 08/06/21 Eosinophils # (Auto) 0.03 K/uL (0-0.5) 08/06/21 Basophils # (Auto) 0.01 K/uL (0-0.2) 08/06/21 Immature Granulocyte # (Auto) 0.01 K/uL (0.00-0.02) 08/06/21 Polychromasia 1+ 08/06/21 Na 135 mmol/L (136-145) L 08/06/21 K 3.6 mmol/L (3.5-5.1) 08/06/21 Cl 100 mmol/L (98-107) 08/06/21 CO2 27 mmol/L (21-32) 08/06/21 Anion Gap 8 (3-11) 08/06/21 BUN 9 mg/dl (6-23) 08/06/21 Creatinine 0.69 mg/dl (0.6-1.4) 08/06/21 Estimated GFR ( Amer) 121.3 ml/min 08/06/21 Estimated GFR (Non-Af Amer) 104.6 ml/min 08/06/21 BUN/Creatinine Ratio 13.0 (10-20) 08/06/21 Glu 89 mg/dl (70-99(Fasting)) 08/06/21 Ca 9.2 mg/dl (8.5-10.1) 08/06/21 Calcium Level 9.2 mg/dl (8.5-10.1) 08/06/21 05:32 08/06/21 I & O Totals 24 Hours 08/05/21 08/06/21 08/07/21 06:59 06:59 06:59 Intake Total 2106.2 / 2106.2 173 / 173 107.5 / 107.5 Output Total 1050 / 1050 1202 / 1202 500 / 500 Balance 1056.2 / 1056.2 -1029 / -1029 -392.5 / -392.5 Cumulative 08/04/21 06:53 thru 08/06/21 15:38 Intake Total 2386.7 Output Total 2752 Balance -365.3 RT Ventilator Mngmt (Last Documented) Ventilator Ordered Settings Respiratory Rate 28 08/06/21 15:04 Ventilator - PT Measurements Respiratory Rate 28 Coding Level of Care Code Critical Care 1st 30-74 mins Diagnoses Seizure R56.9 Alcohol withdrawal F10.239 Seizure disorder G40.909 Portal hypertension K76.6 Alcoholic cirrhosis K70.30 Alcoholic cerebellar degeneration F10.20; G31.2 Hypertension I10
[2021-08-07] MEDS: chlordiazePOXIDE HCl 25 MG CAP PO SCH (04:55)
[2021-08-07 05:10] LABS: Hematocrit (blood only) 40.6 % (42-52); Hemoglobin 13.8 g/dL (14.0-18.0); Mean Corpuscular Hemoglobin 37.3 pg (25-34); Mean Corpuscular Volume 109.7 fL (80-100); RDW Coefficient of Variation 13.6 % (11.5-14.5); RDW Standard Deviation 55.2 fL (36.4-46.3); White Blood Count 3.77 K/uL (4.8-10.8)
[2021-08-07 05:14] LABS: Mean Platelet Volume 11.2 fL (7.4-10.4); Platelet Count 51 K/uL (130-400)
[2021-08-07 05:22] LABS: BUN Creatinine Ratio 15.4 (10-20); Calcium 9.2 mg/dl (8.5-10.1); Creatinine Clr Calc Pharmacy 124.1 ml/min; Est GFR (African American) 115.3 ml/min; Est GFR (Non-African American) 99.5 ml/min; Magnesium 1.9 mg/dl (1.7-2.4); Phosphorus 3.5 mg/dl (2.5-4.9); Potassium 3.8 mmol/L (3.5-5.1)
[2021-08-07 05:49] LABS: Basophils # (auto) 0.02 K/uL (0-0.2); Basophils % (auto) 0.5 %; Eosinophils # (auto) 0.07 K/uL (0-0.5); Eosinophils % (auto) 1.9 %; Immature Granulocytes # (auto) 0.01 K/uL (0.00-0.02); Immature Granulocytes % (auto) 0.3 %; Lymphocytes # (auto) 0.51 K/uL (1.2-3.4); Lymphocytes % (auto) 13.5 %; Monocytes # (auto) 0.53 K/uL (0.11-0.59); Monocytes % (auto) 14.1 %; Neutrophils # (auto) 2.63 K/uL (1.4-6.5); Neutrophils % (auto) 69.7 %
[2021-08-07] MEDS: levETIRAcetam 750 MG in 0.9 % SODIUM CHLORIDE 100 ML IV SCH ×2 (08:35→21:08)
[2021-08-07] MEDS: THIAMINE HCL 100 MG in SYRINGE 9 ML IV SCH (08:44)
[2021-08-07] MEDS: rifAXIMin 550 MG TABLET PO SCH ×2 (09:25→21:08)
[2021-08-07] MEDS: PANTOprazole 40 MG TAB PO SCH (09:25)
[2021-08-07] MEDS: FOLIC ACID 1 MG TAB PO SCH (09:25)
[2021-08-07] MEDS: MAGNESIUM OXIDE 400 MG TAB PO SCH (09:25)
[2021-08-07] MEDS: lamoTRIgine 100 MG TAB PO SCH ×2 (09:25→21:08)
[2021-08-07] MEDS: allopurinoL 300 MG TAB PO SCH (09:25)
[2021-08-07] MEDS: SPIRONOLACTONE 25 MG TAB PO SCH (09:25)
[2021-08-07] MEDS: LORazepam 2 MG/1 ML VIAL IV PRN (10:08)
[2021-08-07] MEDS ORDERED: PHENobarbitaL 30 MG TAB PO SCH (10:32)
[2021-08-07] MEDS ORDERED: PHENobarbitaL 30 MG TAB PO STA (10:32)
--- NOTE | 2021-08-07 10:33 | Critical Care Progress Note ---
Date of Service August 07, 2021 Assessment & Plan (1) Alcohol withdrawal: Plan: Reason Critically Ill: 56-year-old male with a significant past medical history for alcohol abuse and withdrawal seizures who appears to be in acute delirium tremens. PLAN: Neuro: Acute on chronic alcohol abuse Acute delirium tremens History seizure disorder Continue Keppra 750 mg p.o. twice daily -Converted to IV Continue Lamictal 300 mg p.o. twice daily -On hold secondary to n.p.o. - Pt reports last drink 1-2 days ago. 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 Platelet count is again low, hold and resume every other day once improved Continue metoprolol 100 mg p.o. daily, hold for hypotension Repeat EKG Fluids/Renal: Daily electrolytes ID: Monitor fever curve GI/Nutrition: Cirrhosis, alcoholic with history of HCC Patient reported history of hepatitis C. Prior outpatient antibody tests negative HCV RNA Continue rifaximin Continue spironolactone 50 mg daily Continue Lasix 20 mg daily Continue thiamine supplementation - Hepatocellular Carcinoma screening -->US Liver without signs of hepatic masses. Cirrhosis appreciated. Patient with outpatient follow-up to [place] [facility] EGD 08/11: Grade 1 varices in lower third of the esophagus Heme: Pancytopenia Suspect alcohol mediated marrow suppression No signs of active bleeding DVT prophylaxis: SCDs, defer pharmaco ppx in the setting of low plt~30k Endocrine: ICU hyperglycemia protocol Vascular access: Peripheral IVs Code Status: Full code Disposition: Possible downgrade later today pending results of EEG Update: 1600 EEG no epileptic discharges. Coresafe placed to allow feedings. Will proceed with symptom triggered AWSS. meds and nutrition via coresafe. Stable for downgrade (2) Seizure: (3) Seizure disorder: (4) Portal hypertension: (5) Alcoholic cirrhosis: (6) Alcoholic cerebellar degeneration: (7) Hypertension: Admission and Anticipated Discharge Date Admission Date: August 04, 2021 Subjective Following simple commands for nursing, otherwise largely unchanged from yesterday Physical Exam Physical Exam: General: Somnolent nontoxic. Skin: Warm, dry, Head: Atraumatic Ears, nose, mouth and throat: airway patent Cardiovascular: Normal peripheral perfusion, tachycardia Respiratory: no respiratory distress Gastrointestinal: Non distended Musculoskeletal: No deformity Results & Data Results & Data ([facility]) Vital Signs (Past 12 Hours) Vital Signs Temp Pulse Pulse Resp BP BP Pulse Ox 08/07/21 05:50 36.5 C 90 24 129/82 95 08/07/21 05:13 90 23 129/82 93 08/07/21 05:00 96 H 23 128/83 93 08/07/21 04:00 37.4 C 95 H 27 H 157/101 H 94 08/07/21 03:00 94 H 26 H 130/74 93 08/07/21 02:00 101 H 21 118/76 94 08/07/21 01:00 93 H 16 130/78 95 08/07/21 00:00 92 H 24 123/85 94 08/06/21 23:00 86 24 125/92 95 Critical Care Results & Data Vital Signs (Past 12 Hours) Vital Signs Temp Pulse Pulse Resp BP BP Pulse Ox 08/07/21 05:50 36.5 C 90 24 129/82 95 08/07/21 05:13 90 23 129/82 93 08/07/21 05:00 96 H 23 128/83 93 08/07/21 04:00 37.4 C 95 H 27 H 157/101 H 94 08/07/21 03:00 94 H 26 H 130/74 93 08/07/21 02:00 101 H 21 118/76 94 08/07/21 01:00 93 H 16 130/78 95 08/07/21 00:00 92 H 24 123/85 94 08/06/21 23:00 86 24 125/92 95 Lab & Micro Results (Past 24 Hours) RBC 3.70 M/uL (4.7-6.1) L 08/07/21 WBC 3.77 K/uL (4.8-10.8) L 08/07/21 Hgb 13.8 g/dL (14.0-18.0) L 08/07/21 Hct 40.6 % (42-52) L 08/07/21 MCV 109.7 fL (80-100) H 08/07/21 MCH 37.3 pg (25-34) H 08/07/21 MCHC 34.0 g/dL (32-36) 08/07/21 RDW Standard Deviation 55.2 fL (36.4-46.3) H 08/07/21 RDW Coefficient of Variation 13.6 % (11.5-14.5) 08/07/21 Plt Count 51 K/uL (130-400) L 08/07/21 MPV 11.2 fL (7.4-10.4) H 08/07/21 Neutrophils (%) (Auto) 69.7 % 08/07/21 Lymphocytes (%) (Auto) 13.5 % 08/07/21 Monocytes # (Auto) 0.53 K/uL (0.11-0.59) 08/07/21 Eosinophils # (Auto) 0.07 K/uL (0-0.5) 08/07/21 Immature Granulocyte % (Auto) 0.3 % 08/07/21 Neutrophils # (Auto) 2.63 K/uL (1.4-6.5) 08/07/21 Lymphocytes # (Auto) 0.51 K/uL (1.2-3.4) L 08/07/21 Monocytes # (Auto) 0.53 K/uL (0.11-0.59) 08/07/21 Eosinophils # (Auto) 0.07 K/uL (0-0.5) 08/07/21 Basophils # (Auto) 0.02 K/uL (0-0.2) 08/07/21 Immature Granulocyte # (Auto) 0.01 K/uL (0.00-0.02) 08/07/21 Na 138 mmol/L (136-145) 08/07/21 K 3.8 mmol/L (3.5-5.1) 08/07/21 Cl 102 mmol/L (98-107) 08/07/21 CO2 28 mmol/L (21-32) 08/07/21 Anion Gap 8 (3-11) 08/07/21 BUN 12 mg/dl (6-23) 08/07/21 Creatinine 0.78 mg/dl (0.6-1.4) 08/07/21 Estimated GFR ( Amer) 115.3 ml/min 08/07/21 Estimated GFR (Non-Af Amer) 99.5 ml/min 08/07/21 BUN/Creatinine Ratio 15.4 (10-20) 08/07/21 Glu 86 mg/dl (70-99(Fasting)) 08/07/21 Ca 9.2 mg/dl (8.5-10.1) 08/07/21 Phosphorus Level 3.5 mg/dl (2.5-4.9) 08/07/21 Mg 1.9 mg/dl (1.7-2.4) 08/07/21 04:35 08/07/21 Calcium Level 9.2 mg/dl (8.5-10.1) 08/07/21 04:35 08/07/21 I & O Totals 24 Hours 08/06/21 08/07/21 08/08/21 06:59 06:59 06:59 Intake Total 173 / 173 215.0 / 215.0 107.5 / 107.5 Output Total 1202 / 1202 600 / 600 Balance -1029 / -1029 -385.0 / -385.0 107.5 / 107.5 Cumulative 08/04/21 06:53 thru 08/07/21 09:27 Intake Total 2601.7 Output Total 2852 Balance -250.3 RT Ventilator Mngmt (Last Documented) Ventilator Ordered Settings Respiratory Rate 24 08/07/21 05:50 Ventilator - PT Measurements Respiratory Rate 24 Coding Level of Care Code 36871 Subseq Hosp Care Lvl 3 Diagnoses Alcohol withdrawal F10.239 Seizure R56.9 Seizure disorder G40.909 Portal hypertension K76.6 Alcoholic cirrhosis K70.30 Alcoholic cerebellar degeneration F10.20; G31.2 Hypertension I10
--- NOTE | 2021-08-07 11:27 | XRay Report ---
[facility] CLINICAL HISTORY: confirm Coresafe insertion COMPARISON STUDY: CT of the abdomen and pelvis February 17, 2020. FINDINGS: Tip of feeding tube projects over the gastric fundus. There is slight gaseous dilatation of the colon. No dilated loops of small bowel are evident. IMPRESSION: Tip of feeding tube projects over the gastric fundus. ACT 112: Negative or not required by law. Electronically signed by: Richard Wan M.D. 08/07/2021 11:25 AM
[2021-08-07] MEDS ORDERED: METOPROLOL TARTRATE 25 MG TAB PO SCH (12:00)
[2021-08-07] MEDS: MULTIVITAMIN TAB PO SCH (12:50)
--- NOTE | 2021-08-07 13:31 | Hospitalist Progress Note ---
Date of Service August 07, 2021 Assessment & Plan (1) Seizure: Plan: Seizure 2/2 EtoH Withdrwawl No leukocytosis on admit, Hgb 13.9, platelet 35. INR 1.4 in the setting of cirrhosis. BSG greater than 100 at EMS, 139 in ER Lactate 9.4 likely due to seizure. Subsequently normalized on recheck. Continue Keppra 750 mg p.o. twice daily Continue Lamictal 300 mg p.o. twice daily Ethyl alcohol on admit 21.1 COVID pendingCXR: No acute disease EKG: Normal sinus rhythm, QT 499 - Pt reports last drink 1-2 days ago. At least 8 beers per sitting. Doesn't remember how much he drank in last sitting. EtoH pos on admit 21.1 Admitted on LARS S/Librium - CT-H without acute findings - Pt with developing and worsening alcohol withdrawal encephalopathy. First sx 08/04. Pt and did express desire to get through withdrawal with hopes to reduce/abstain after at onset. Ammonia 52, on rifaxamin on admit. Given concern for swallow safety Keppra has been converted to IV, p.o. held. Metoprolol converted to as needed every 6 hours. No oral conversion for lamo trigine. - 08/06 required over 12 mg of Ativan in the preceding night. Given patient's high seizure risk, progressive withdrawal, and inability to give his second antiepileptic via IV recommend consideration for phenobarbital protocol. - 08/07 no seizures, control w/symptom triggered benzos. EEG with no evidence of occult seizure. NG placed for nutrition/meds. MTP dose reduced + IV PRN. Downgraded, given 1x dose phenobarb at downgrade, and continued AWSS. Librium d/k[place]on. Thiamine continued. Enteral nutrition continued. 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 Within normal limits 08/06 CAD, PCI with JESSEE to mid LAD 11/2018 in the setting of angina - Reports was narrowed from DAPT to ASA monotherapy - ASA monotherapy sopped due to thrombocytopenia, seizures, EtoH falls with concern for bleeding On reassessment 06/12 patient was recommended to take aspirin every other day after a 1 week hold for thrombocytopenia. plt count remains suppressed; hold and resume every other day once improved MTP as noted, hold for hypotension Cirrhosis, alcoholic with history of HCC Patient reported history of hepatitis C. Prior outpatient antibody tests negative HCV RNA Continue rifaximin Continue spironolactone 50 mg daily Continue Lasix 20 mg daily Continue thiamine supplementation AST 162, ALT normal, alk phos 219 on admission. Total bili 3.2. AST downtrending, bili uptrending 08/05 - Hepatocellular Carcinoma screening --> US Liver without signs of hepatic masses. Cirrhosis appreciated. Patient with outpatient follow-up to [place] [facility] EGD 08/11: Grade 1 varices in lower third of the esophagus History of gout Continue allopurinol 300 mg daily, p.o. 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 Opens eyes transiently to loud voice and vigorous shake/name, otherwise falls back asleep. Review of Systems Review of Systems: Unobtainable due to reduced consciousness Physical Exam Physical Exam: General: Sedated, arouses transiently to vigorous shake and voice but does not follow commands and falls back asleep HEENT: Superior skull deformity from old injury, no acute abnormality. Patient and hearing grossly intact, unable to fully assess due to cognitive status. Pupils equal and reactive to light Pulm: Diminished but grossly clear. Symmetrical chest rise. No increase in work of breathing. No respiratory distress. Cardiac: RRR, systolic murmur Radial pulses intact and symmetrical. Abdominal: Softly distended, nontender. Bowel sounds present. Extremities: Warm, moist. Unable to complete strength/sensation testing. Does withdraw to thumb pinch Results & Data Results & Data ([facility]) Vital Signs (Past 12 Hours) Vital Signs Temp Pulse Pulse Resp BP BP Pulse Ox 08/07/21 05:50 36.5 C 90 24 129/82 95 08/07/21 05:13 90 23 129/82 93 08/07/21 05:00 96 H 23 128/83 93 08/07/21 04:00 37.4 C 95 H 27 H 157/101 H 94 08/07/21 03:00 94 H 26 H 130/74 93 08/07/21 02:00 101 H 21 118/76 94 PG Care Time/CCT Total # of Minutes Spent Total Time Spent with Patient: Total time spent is greater than 50% in coordination of care (as documented) at patient's floor/unit and/or counseling patient: Coding Level of Care Code 57095 Subseq Hosp Care Lvl 2 Diagnoses Seizure R56.9 Alcohol withdrawal F10.239 Tremor R25.1 Portal hypertension K76.6 Peripheral neuropathy G62.9 Esophageal varices I85.00 Coronary artery disease I25.10 Chronic venous insufficiency I87.2 Alcoholic cirrhosis K70.30 Hypertension I10 Anemia D64.9
[2021-08-07] MEDS ORDERED: IMPACT LIQD 1.0 CAL 1,000 ML BAG NG SCH (14:00)
[2021-08-07] MEDS: TUBE FEEDING WATER FLUSH NG SCH ×3 (14:47→21:09)
--- NOTE | 2021-08-07 15:14 | Electrocardiogram Report ---
Test Reason : Blood Pressure : / mmHG Vent. Rate : 095 BPM Atrial Rate : 095 BPM P-R Int : 156 ms QRS Dur : 092 ms QT Int : 372 ms P-R-T Axes : 038 -27 -01 degrees QTc Int : 467 ms Sinus rhythm with occasional Premature ventricular complexes Possible Left atrial enlargement Borderline ECG When compared with ECG of 04-AUG-2021 07:12, Premature ventricular complexes are now Present Confirmed by Rico Gtz ([id number]) on 08/07/2021 3:13:59 PM Referred By: REFERRED SELF Confirmed By:Alexis Gtz
--- NOTE | 2021-08-07 15:40 | Electroencephalogram ---
EEG Procedure Note Date of Service August 07, 2021 Start / End Times Start Time: 12:09 PM End Time: 12:29 PM Referring Physician Oral Alvarado DO History History of alcohol abuse, seizures Home Medication List Medication Instructions Recorded Confirmed Type magnesium oxide 400 mg (241.3 mg 400 mg PO BID #60 tab 03/04/20 08/04/21 Rx magnesium) tablet levetiracetam 250 mg tablet 750 mg PO BID #180 tab 06/21/20 08/04/21 Rx folic acid 1 mg tablet 1 mg PO DAILY #90 tab 01/30/21 08/04/21 Rx lansoprazole 30 mg capsule,delayed 30 mg PO DAILY 01/30/21 08/04/21 History release (Prevacid) rifaximin 550 mg tablet (Xifaxan) 550 mg PO BID #60 tab 01/30/21 08/04/21 Rx thiamine HCl (vitamin B1) 100 mg 100 mg PO DAILY #90 tab 01/30/21 08/04/21 Rx tablet (Vitamin B-1) allopurinol 300 mg tablet 300 mg PO DAILY #90 tab 02/23/21 08/04/21 Rx metoprolol succinate 100 mg 100 mg PO DAILY #90 tab 02/23/21 08/04/21 Rx tablet,extended release 24 hr furosemide 20 mg tablet (Lasix) 20 mg PO DAILY #30 tab 04/09/21 08/04/21 Rx spironolactone 50 mg tablet 50 mg PO DAILY #90 tab 04/16/21 08/04/21 Rx lamotrigine 200 mg tablet 300 mg PO BID 08/04/21 08/04/21 History (Lamictal) Inpatient Medication List Allopurinol (Allopurinol 300 Mg Tab) 300 mg PO DAILY MIST[facility] Stop: 09/04/21 08:59 Last Admin: 08/07/21 09:25 Dose: Not Given Documented by: [id number] Admin: 08/06/21 10:32 Dose: Not Given Documented by: [id number] Admin: 08/05/21 07:59 Dose: 300 mg Documented by: [id number] Enteral Nutritional Formula (Impact Liqd 1.0 Chad 1,000 Ml Bag) 1,000 ml NG UD MISTY; Protocol Stop: 09/06/21 13:59 Last Admin: 08/07/21 14:47 Dose: 1,000 ml Documented by: [id number] Folic Acid (Folic Acid 1 Mg Tab) 1 mg PO DAILY M[facility] Stop: 09/04/21 08:59 Last Admin: 08/07/21 09:25 Dose: Not Given Documented by: [id number] Admin: 08/06/21 10:32 Dose: Not Given Documented by: [id number] Admin: 08/05/21 07:59 Dose: 1 mg Documented by: [id number] Thiamine HCl 100 mg/ Syringe 10 mls @ 2 mls/min IV QAM [facility] Stop: 09/06/21 08:59 Last Admin: 08/07/21 08:44 Dose: 2 mls/min Documented by: [id number] Levetiracetam 750 mg/ Sodium (Chloride) 107.5 mls @ 440 mls/hr IV BID M[facility] Stop: 09/05/21 10:59 Last Infusion: 08/07/21 09:27 Dose: 0 mls/hr Documented by: [id number] Admin: 08/07/21 08:35 Dose: 440 mls/hr Documented by: [id number] Infusion: 08/06/21 20:29 Dose: 0 mls/hr Documented by: [id number] Admin: 08/06/21 20:03 Dose: 440 mls/hr Documented by: [id number] Infusion: 08/06/21 11:53 Dose: 0 mls/hr Documented by: [id number] Admin: 08/06/21 11:21 Dose: 440 mls/hr Documented by: [id number] Lamotrigine (Lamotrigine 100 Mg Tab) 300 mg PO BID MIST[facility] Stop: 09/03/21 20:59 Last Admin: 08/07/21 09:25 Dose: Not Given Documented by: [id number] Admin: 08/06/21 20:12 Dose: Not Given Documented by: [id number] Admin: 08/06/21 10:32 Dose: Not Given Documented by: [id number] Admin: 08/05/21 21:49 Dose: 300 mg Documented by: [id number] Admin: 08/05/21 07:58 Dose: 300 mg Documented by: [id number] Admin: 08/04/21 19:43 Dose: 300 mg Documented by: [id number] Lorazepam (Lorazepam 2 Mg/1 Ml Vial) 2 mg IV UD PRN PRN Reason: seizure Stop: 09/03/21 12:14 Last Admin: 08/05/21 22:20 Dose: 2 mg Documented by: [id number] Lorazepam (Lorazepam 2 Mg/1 Ml Vial) 1 mg IV UD PRN; Protocol PRN Reason: EtOH Withdrawl AWSS Score 6,7 Stop: 09/03/21 12:29 Last Admin: 08/07/21 10:08 Dose: 1 mg Documented by: [id number] Admin: 08/06/21 07:33 Dose: 1 mg Documented by: [id number] Admin: 08/06/21 05:06 Dose: 1 mg Documented by: [id number] Admin: 08/06/21 03:12 Dose: 1 mg Documented by: [id number] Admin: 08/06/21 01:08 Dose: 1 mg Documented by: [id number] Admin: 08/05/21 19:50 Dose: 1 mg Documented by: [id number] Lorazepam (Lorazepam 2 Mg/1 Ml Vial) 2 mg IV UD PRN; Protocol PRN Reason: EtOH Withdrawl AWSS Score 8,9 Stop: 09/03/21 12:29 Last Admin: 08/06/21 19:55 Dose: 2 mg Documented by: [id number] Admin: 08/05/21 17:55 Dose: 2 mg Documented by: [id number] Admin: 08/05/21 13:18 Dose: 2 mg Documented by: [id number] Admin: 08/05/21 11:30 Dose: 2 mg Documented by: [id number] Admin: 08/05/21 07:50 Dose: 2 mg Documented by: [id number] Lorazepam (Lorazepam 2 Mg/1 Ml Vial) 3 mg IV ONCE PRN; Protocol PRN Reason: EtOH Withdrawl AWSS Score >=10 Stop: 09/03/21 12:29 Last Admin: 08/05/21 09:13 Dose: 3 mg Documented by: [id number] Magnesium Oxide (Magnesium Oxide 400 Mg Tab) 400 mg PO QAM [facility] Stop: 09/03/21 10:44 Last Admin: 08/07/21 09:25 Dose: Not Given Documented by: [id number] Admin: 08/06/21 10:33 Dose: Not Given Documented by: [id number] Admin: 08/05/21 07:58 Dose: 400 mg Documented by: [id number] Admin: 08/04/21 11:22 Dose: 400 mg Documented by: [id number] Metoprolol Succinate (Metoprolol Succ 50mg Ext Rel Tab) 100 mg PO DAILY [facility] Stop: 09/04/21 08:59 Last Admin: 08/06/21 10:33 Dose: Not Given Documented by: [id number] Admin: 08/05/21 07:59 Dose: 100 mg Documented by: [id number] Metoprolol Tartrate (Metoprolol Tartrate 25 Mg Tab) 75 mg PO QAM [facility] Stop: 09/06/21 11:59 Last Admin: 08/07/21 12:50 Dose: 75 mg Documented by: [id number] [facility]ivit[facility] ([facility]itamin Tab) [facility] Stop: 09/06/21 10:59 Last Admin: 08/07/21 12:50 Dose: 1 tab Documented by: [id number] Pantoprazole Sodium (Pantoprazole 40 Mg Tab) 40 mg PO DAILY [facility] Stop: 09/04/21 08:59 Last Admin: 08/07/21 09:25 Dose: Not Given Documented by: [id number] Admin: 08/06/21 10:33 Dose: Not Given Documented by: [id number] Admin: 08/05/21 08:00 Dose: 40 mg Documented by: [id number] Phenobarbital (Phenobarbital 30 Mg Tab) 30 mg PO TODAY@1032 [facility] Stop: 08/07/21 18:00 Last Admin: 08/07/21 12:56 Dose: Not Given Documented by: [id number] Rifaximin (Rifaximin 550 Mg Tablet) 550 mg PO BID [facility] Stop: 09/03/21 20:59 Last Admin: 08/07/21 09:25 Dose: Not Given Documented by: [id number] Admin: 08/06/21 20:12 Dose: Not Given Documented by: [id number] Admin: 08/06/21 10:34 Dose: Not Given Documented by: [id number] Admin: 08/05/21 21:49 Dose: 550 mg Documented by: [id number] Admin: 08/05/21 07:58 Dose: 550 mg Documented by: [id number] Admin: 08/04/21 19:44 Dose: 550 mg Documented by: [id number] Spironolactone (Spironolactone 25 Mg Tab) 50 mg PO DAILY [facility] Stop: 09/04/21 08:59 Last Admin: 08/07/21 09:25 Dose: Not Given Documented by: [id number] Admin: 08/06/21 10:34 Dose: Not Given Documented by: [id number] Admin: 08/05/21 07:58 Dose: 50 mg Documented by: [id number] Sterile Water (Tube Feeding Water Flush) 100 ml NG Q4H [facility] Stop: 09/06/21 13:59 Last Admin: 08/07/21 14:47 Dose: 100 ml Documented by: [id number] Discontinued Medications Chlordiazepoxide HCl (Chlordiazepoxide Hcl 25 Mg Cap) 25 mg PO Q8H MISTY; Taper Stop: 08/07/21 12:59 Last Admin: 08/07/21 04:55 Dose: Not Given Documented by: [id number] Admin: 08/06/21 20:12 Dose: Not Given Documented by: [id number] Admin: 08/06/21 13:32 Dose: Not Given Documented by: [id number] Admin: 08/06/21 06:04 Dose: 50 mg Documented by: [id number] Admin: 08/05/21 21:50 Dose: 50 mg Documented by: [id number] Admin: 08/05/21 13:30 Dose: Not Given Documented by: [id number] Admin: 08/05/21 07:51 Dose: 50 mg Documented by: [id number] Admin: 08/05/21 00:12 Dose: 50 mg Documented by: [id number] Admin: 08/04/21 19:44 Dose: 50 mg Documented by: [id number] Admin: 08/04/21 14:27 Dose: 50 mg Documented by: [id number] Furosemide (Furosemide 20 Mg Tab) 20 mg PO DAILY [facility] Stop: 09/04/21 08:59 Last Admin: 08/06/21 10:32 Dose: Not Given Documented by: [id number] Admin: 08/05/21 07:59 Dose: 20 mg Documented by: [id number] Multivitamins 10 ml/ Thiamine HCl 100 mg/ Folic Acid 1 mg/Sodium Chloride 1,011.2 mls @ 1,011.2 mls/hr IV .Q1H ONE Stop: 08/04/21 08:48 Last Infusion: 08/04/21 09:24 Dose: 0 mls/hr Documented by: [id number] Admin: 08/04/21 08:24 Dose: 1,011.2 mls/hr Documented by: [id number] Magnesium Sulfate/Dextrose (Magnesium Sulfate / D5w) 1 gm in 100 mls @ 50 mls/hr IV Q2H [facility] Stop: 08/04/21 14:44 Last Infusion: 08/04/21 17:19 Dose: 0 mls/hr Documented by: [id number] Admin: 08/04/21 14:09 Dose: 50 mls/hr Documented by: [id number] Infusion: 08/04/21 13:22 Dose: 50 mls/hr Documented by: [id number] Admin: 08/04/21 11:22 Dose: 50 mls/hr Documented by: [id number] Thiamine HCl 500 mg/ Sodium (Chloride) 55 mls @ 208 mls/hr IV QAM [facility] Stop: 08/04/21 13:16 Last Infusion: 08/04/21 15:03 Dose: 0 mls/hr Documented by: [id number] Admin: 08/04/21 14:10 Dose: 208 mls/hr Documented by: [id number] Thiamine HCl 100 mg/ Syringe 10 mls @ 2 mls/min IV TODAY@0900 [facility] Stop: 08/06/21 09:04 Last Admin: 08/06/21 09:06 Dose: 2 mls/min Documented by: [id number] Thiamine HCl 300 mg/ Sodium (Chloride) 53 mls @ 210 mls/hr IV TODAY@0900 [facility] Stop: 08/05/21 09:16 Last Infusion: 08/05/21 09:45 Dose: 0 mls/hr Documented by: [id number] Admin: 08/05/21 09:17 Dose: 210 mls/hr Documented by: [id number] Levetiracetam (Levetiracetam 250 Mg Tab) 750 mg PO BID [facility] Stop: 09/03/21 20:59 Last Admin: 08/06/21 10:33 Dose: Not Given Documented by: [id number] Admin: 08/05/21 21:49 Dose: 750 mg Documented by: [id number] Admin: 08/05/21 07:58 Dose: 750 mg Documented by: [id number] Admin: 08/04/21 19:44 Dose: 750 mg Documented by: [id number] Lorazepam (Lorazepam 2 Mg/1 Ml Vial) 1 mg IV NOW STA Stop: 08/04/21 07:50 Last Admin: 08/04/21 08:05 Dose: 1 mg Documented by: [id number] Lorazepam (Lorazepam 2 Mg/1 Ml Vial) 2 mg IV NOW STA Stop: 08/04/21 09:34 Last Admin: 08/04/21 09:39 Dose: 2 mg Documented by: [id number] Olanzapine (Olanzapine 10 Mg/2.1 Ml Sdv) 5 mg IM NOW STA Stop: 08/05/21 22:14 Last Admin: 08/05/21 22:29 Dose: 5 mg Documented by: [id number] Potassium Chloride (Potassium Chloride 10 Meq Tabcr) 40 meq PO NOW STA Stop: 08/04/21 09:10 Last Admin: 08/04/21 09:27 Dose: 40 meq Documented by: [id number] Potassium Chloride (Potassium Chloride 20 Meq/15 Ml Udc) 40 meq PO TID [facility] Stop: 08/05/21 09:01 Last Admin: 08/05/21 08:00 Dose: Not Given Documented by: [id number] Admin: 08/04/21 19:44 Dose: 40 meq Documented by: [id number] Admin: 08/04/21 14:09 Dose: 40 meq Documented by: [id number] Potassium Chloride (Potassium Chloride Crtab 20 Meq Tabcr) 40 meq PO Q6H [facility] Stop: 08/05/21 13:16 Last Admin: 08/05/21 13:30 Dose: Not Given Documented by: [id number] Admin: 08/05/21 07:56 Dose: 40 meq Documented by: [id number] Description This is a 21 electrode EEG with a single channel dedicated to limited EKG. The electrodes were placed in accordance with the International 10-20 system. There is a posterior dominant rhythm of about 15 Hz which is observed throughout the entirety of the study. There is a normal anterior to posterior organization. Photic stimulation is unremarkable. Hyperventilation is not performed. There is a symmetric frontal beta rhythm. There is intermittent movement artifact throughout the study. There is no focal slowing. There are no epileptiform abnormalities. Interpretation Fairly normal-appearing awake/drowsy EEG revealing a persistent background rhythm of about 15 Hz. The patient is notably agitated and confused during the study and the background rhythm does not significantly change potentially suggestive of encephalopathy, however. No epileptiform abnormalities observed. [facility] EEG Procedure Codes Indication for Procedure (1) Seizure: (2) Alcohol withdrawal: Neurology Neurology: [id number] EEG include record awake & drowsy
[2021-08-07] MEDS ORDERED: CHLORDIAZEPOXIDE 10MG 4TH DOSE PO SCH (18:00)
[2021-08-08] MEDS: TUBE FEEDING WATER FLUSH NG SCH ×6 (01:26→21:43)
[2021-08-08] MEDS: LORazepam 2 MG/1 ML VIAL IV PRN ×5 (01:32→19:58)
[2021-08-08] MEDS ORDERED: OLANZapine 10 MG/2.1 ML SDV IM STA (03:12)
[2021-08-08 05:08] LABS: Hematocrit (blood only) 40.1 % (42-52); Hemoglobin 13.7 g/dL (14.0-18.0); Mean Corpuscular Hemoglobin 37.8 pg (25-34); Mean Corpuscular Hgb Conc 34.2 g/dL (32-36); Mean Corpuscular Volume 110.8 fL (80-100); RDW Coefficient of Variation 13.9 % (11.5-14.5); RDW Standard Deviation 55.5 fL (36.4-46.3); Red Blood Count 3.62 M/uL (4.7-6.1); White Blood Count 4.29 K/uL (4.8-10.8)
[2021-08-08 05:12] LABS: Albumin Globulin Ratio 0.7 (0.9-2); BUN Creatinine Ratio 17.9 (10-20); Bilirubin,Total 3.5 mg/dl (0.2-1.0); Calcium 9.3 mg/dl (8.5-10.1); Creatinine Clr Calc Pharmacy 122.6 ml/min; Est GFR (African American) 115.3 ml/min; Est GFR (Non-African American) 99.5 ml/min; Globulin 4.4 gm/dl (2.5-4.0); Potassium 3.6 mmol/L (3.5-5.1); Total Protein 7.4 gm/dl (6.0-8.3)
[2021-08-08 05:17] LABS: Mean Platelet Volume 10.7 fL (7.4-10.4); Platelet Count 61 K/uL (130-400)
[2021-08-08 05:29] LABS: Basophils # (auto) 0.01 K/uL (0-0.2); Basophils % (auto) 0.2 %; Eosinophils # (auto) 0.08 K/uL (0-0.5); Eosinophils % (auto) 1.9 %; Immature Granulocytes # (auto) 0.01 K/uL (0.00-0.02); Immature Granulocytes % (auto) 0.2 %; Lymphocytes # (auto) 0.36 K/uL (1.2-3.4); Lymphocytes % (auto) 8.4 %; Macrocytosis Present; Monocytes # (auto) 0.57 K/uL (0.11-0.59); Monocytes % (auto) 13.3 %; Neutrophils # (auto) 3.26 K/uL (1.4-6.5)
--- NOTE | 2021-08-08 06:53 | Hospitalist Progress Note ---
Date of Service August 08, 2021 Assessment & Plan (1) Seizure: Plan: Seizure subsequent to EtoH Withdrwawl; Ethyl alcohol on admit 21.1, - CT-H without acute findings - Pt with developing and worsening alcohol withdrawal encephalopathy Continue Keppra 750 mg p.o. twice daily, converted to IV due to swallowing issues Continue Lamictal 300 mg p.o. twice daily\ EEG with no evidence of occult seizure. NG placed for nutrition/meds. Thiamine continued. Enteral nutrition continued. 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 Prior outpatient antibody tests negative HCV RNA Continue rifaximin, spironolactone 50 mg daily, Lasix 20 mg daily Continue thiamine supplementation US Liver without signs of hepatic masses. Cirrhosis appreciated. 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, uses 2 canes for mobility Thiamine and acute alcohol withdrawal management as previously noted Pancytopenia Suspect alcohol mediated marrow suppression No signs of active bleeding History of gout typically on allopurinol DVT: SCDs, defer pharmaco ppx in the setting of thrombocytopenia CODE STATUS: Full (2) Alcohol withdrawal: (3) Tremor: (4) Portal hypertension: (5) Peripheral neuropathy: (6) Esophageal varices: (7) Coronary artery disease: (8) Chronic venous insufficiency: (9) Alcoholic cirrhosis: (10) Hypertension: (11) Anemia: Admission and Anticipated Discharge Date Admission Date: August 04, 2021 Subjective Pt is sedate and sleeping, he did have significant reduction in agitation but now is not responsible Review of Systems Review of Systems: Unobtainable due to cognitive status Physical Exam Physical Exam: The patient appeared well nourished and normally developed he is lethargic but awakens briefly to stimuli Vital signs as documented. Head exam is normocephalic atraumatic Neck is without JVD, thyromegaly, or carotid bruits. Lungs are clear to auscultation, diminished bilaterally Cardiac exam, Rhythm is regular.. No murmurs, rubs or gallops. Abdominal exam reveals normal bowel sounds, soft non tender, no masses Extremities are nonedematous and both pedal pulses are present Neurologic exam is obtundent Skin is without bruises or rashes Results & Data Results & Data ([facility]) Vital Signs (Past 12 Hours) Vital Signs Temp Pulse Pulse Pulse Resp BP Pulse Ox 08/08/21 03:00 99.0 F 96 H 23 139/77 95 08/08/21 00:00 99.1 F 89 85 24 141/79 H 96 08/07/21 20:00 99.1 F 82 87 24 144/79 H 94 PG Care Time/CCT Total # of Minutes Spent Total Time Spent with Patient: Total time spent is greater than 50% in coordination of care (as documented) at patient's floor/unit and/or counseling patient: Coding Level of Care Code 14063 Subseq Hosp Care Lvl 3 Diagnoses Seizure R56.9 Alcohol withdrawal F10.239 Tremor R25.1 Portal hypertension K76.6 Peripheral neuropathy G62.9 Esophageal varices I85.00 Coronary artery disease I25.10 Chronic venous insufficiency I87.2 Alcoholic cirrhosis K70.30 Hypertension I10 Anemia D64.9
[2021-08-08] MEDS ORDERED: chlordiazePOXIDE HCl 25 MG CAP PO SCH (07:00)
[2021-08-08] MEDS: allopurinoL 300 MG TAB PO SCH (08:14)
[2021-08-08] MEDS: rifAXIMin 550 MG TABLET PO SCH ×2 (08:14→21:43)
[2021-08-08] MEDS: FOLIC ACID 1 MG TAB PO SCH (08:15)
[2021-08-08] MEDS: SPIRONOLACTONE 25 MG TAB PO SCH (08:15)
[2021-08-08] MEDS: PANTOprazole 40 MG TAB PO SCH (08:15)
[2021-08-08] MEDS: lamoTRIgine 100 MG TAB PO SCH ×2 (08:15→21:42)
[2021-08-08] MEDS: MULTIVITAMIN TAB PO SCH (08:16)
[2021-08-08] MEDS: MAGNESIUM OXIDE 400 MG TAB PO SCH (08:30)
[2021-08-08] MEDS ORDERED: GABAPENTIN 400 MG CAP PO ONE (09:34)
[2021-08-08] MEDS ORDERED: GABAPENTIN 800MG ALCOHOL WITHDRAWAL LOAD PO STA (09:34)
[2021-08-08] MEDS: THIAMINE HCL 100 MG in SYRINGE 9 ML IV SCH (10:06)
[2021-08-08] MEDS: GABAPENTIN 400 MG CAP PO SCH ×2 (10:06→16:56)
[2021-08-08] MEDS: levETIRAcetam 750 MG in 0.9 % SODIUM CHLORIDE 100 ML IV SCH ×2 (10:06→21:41)
[2021-08-08] MEDS: METOPROLOL SUCC 50MG EXT REL TAB PO SCH (10:57)
[2021-08-08] MEDS: LORazepam 1 MG TAB PEG SCH ×3 (10:59→16:57)
[2021-08-08] MEDS: METOPROLOL TARTRATE 50 MG TAB NG SCH ×2 (11:53→21:41)
--- NOTE | 2021-08-08 14:55 | Electrocardiogram Report ---
Test Reason : Blood Pressure : / mmHG Vent. Rate : 097 BPM Atrial Rate : 097 BPM P-R Int : 168 ms QRS Dur : 068 ms QT Int : 364 ms P-R-T Axes : 041 -29 -12 degrees QTc Int : 462 ms Poor data quality, interpretation may be adversely affected Normal sinus rhythm Nonspecific ST abnormality Abnormal ECG When compared with ECG of 04-AUG-2021 07:12, ST now depressed in Inferior leads Non-specific change in ST segment in Lateral leads Confirmed by Rico Gtz ([id number]) on 08/08/2021 2:54:44 PM Referred By: REFERRED SELF Confirmed By:Alexis Gtz
[2021-08-08] MEDS ORDERED: GABAPENTIN 400 MG CAP PO SCH (16:00)
[2021-08-09] MEDS: GABAPENTIN 400 MG CAP PO SCH ×3 (00:06→17:08)
[2021-08-09] MEDS: LORazepam 1 MG TAB PEG SCH ×2 (01:57→09:16)
[2021-08-09] MEDS: TUBE FEEDING WATER FLUSH NG SCH ×6 (01:57→20:46)
[2021-08-09] MEDS ORDERED: GABAPENTIN 400 MG CAP PO SCH (06:00)
[2021-08-09 07:38] LABS: Hematocrit (blood only) 38.5 % (42-52); Hemoglobin 12.8 g/dL (14.0-18.0); Mean Corpuscular Hemoglobin 36.5 pg (25-34); Mean Corpuscular Hgb Conc 33.2 g/dL (32-36); Mean Corpuscular Volume 109.7 fL (80-100); RDW Coefficient of Variation 14.3 % (11.5-14.5); RDW Standard Deviation 56.5 fL (36.4-46.3); Red Blood Count 3.51 M/uL (4.7-6.1); White Blood Count 4.65 K/uL (4.8-10.8)
[2021-08-09 08:03] LABS: BUN Creatinine Ratio 18.8 (10-20); Creatinine Clr Calc Pharmacy 150.7 ml/min; Est GFR (African American) 125.1 ml/min; Est GFR (Non-African American) 107.9 ml/min; Potassium 3.5 mmol/L (3.5-5.1)
[2021-08-09 08:07] LABS: Mean Platelet Volume 10.3 fL (7.4-10.4); Platelet Count 65 K/uL (130-400)
[2021-08-09] MEDS: SPIRONOLACTONE 25 MG TAB PO SCH (08:13)
[2021-08-09] MEDS: MULTIVITAMIN TAB PO SCH (08:13)
[2021-08-09] MEDS: PANTOprazole 40 MG TAB PO SCH (08:13)
[2021-08-09] MEDS: rifAXIMin 550 MG TABLET PO SCH ×2 (08:13→20:46)
[2021-08-09] MEDS: allopurinoL 300 MG TAB PO SCH (08:13)
[2021-08-09] MEDS: FOLIC ACID 1 MG TAB PO SCH (08:13)
[2021-08-09] MEDS: lamoTRIgine 100 MG TAB PO SCH ×2 (08:13→20:46)
[2021-08-09] MEDS: METOPROLOL TARTRATE 50 MG TAB NG SCH ×2 (08:14→20:46)
[2021-08-09] MEDS: THIAMINE HCL 100 MG in SYRINGE 9 ML IV SCH (08:17)
[2021-08-09] MEDS: levETIRAcetam 750 MG in 0.9 % SODIUM CHLORIDE 100 ML IV SCH ×2 (08:17→20:40)
[2021-08-09 09:25] LABS: Albumin Globulin Ratio 0.7 (0.9-2); Albumin Level 2.8 gm/dl (3.4-5.0); Bilirubin,Total 3.2 mg/dl (0.2-1.0); Globulin 4.2 gm/dl (2.5-4.0)
[2021-08-09] MEDS: MAGNESIUM OXIDE 400 MG TAB PO SCH (11:23)
--- NOTE | 2021-08-09 18:09 | Hospitalist Progress Note ---
Date of Service August 09, 2021 Assessment & Plan (1) Seizure: Plan: Seizure subsequent to EtoH Withdrawal; Ethyl alcohol on admit 21.1, - CT-H without acute findings - Pt with alcohol withdrawal encephalopathy slow to improve Continue Keppra 750 mg p.o. twice daily, converted to IV due to swallowing issues Continue Lamictal 300 mg p.o. twice daily\ EEG with no evidence of occult seizure. NG placed for nutrition/meds. Thiamine continued. 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 Prior outpatient antibody tests negative HCV RNA Continue rifaximin, spironolactone 50 mg daily, Lasix 20 mg daily Continue thiamine supplementation US Liver without signs of hepatic masses. Cirrhosis appreciated. 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, uses 2 canes for mobility Thiamine and acute alcohol withdrawal management as previously noted Pancytopenia Suspect alcohol mediated marrow suppression No signs of active bleeding History of gout typically on allopurinol DVT: SCDs, defer pharmaco ppx in the setting of thrombocytopenia CODE STATUS: Full (2) Alcohol withdrawal: (3) Tremor: (4) Portal hypertension: (5) Peripheral neuropathy: (6) Esophageal varices: (7) Coronary artery disease: (8) Chronic venous insufficiency: (9) Alcoholic cirrhosis: (10) Hypertension: (11) Anemia: Admission and Anticipated Discharge Date Admission Date: August 04, 2021 Subjective Pt is docile and redirectable, not making sense, but trying to speak to at bedside, no focal complaints Review of Systems Review of Systems: Unobtainable due to cognitive status Physical Exam Physical Exam: The patient appeared well nourished and normally developed he is lethargic but awakens and makes eye contact Vital signs as documented. Head exam is normocephalic atraumatic Neck is without JVD, thyromegaly, or carotid bruits. Lungs are clear to auscultation, remains diminished bilaterally Cardiac exam, Rhythm is regular.. No murmurs, rubs or gallops. Abdominal exam reveals normal bowel sounds, soft non tender, no masses Extremities are nonedematous and both pedal pulses are present Neurologic exam is awake and tries to follow commands, makes eye contact very little verbal response Skin is without bruises or rashes Results & Data Results & [facility] ([facility]) Vital Signs (Past 12 Hours) Vital Signs Temp Pulse Pulse Resp BP BP Pulse Ox 08/09/21 16:57 78 08/09/21 16:13 97.9 F 81 16 110/70 93 08/09/21 14:00 85 23 93 08/09/21 13:00 86 24 95 08/09/21 12:00 85 27 H 135/79 91 08/09/21 11:00 85 28 H 95 08/09/21 10:00 79 26 H 93 08/09/21 09:00 87 27 H 88 L 08/09/21 08:00 93 H 23 121/71 92 08/09/21 07:00 92 H 22 92 PG Care Time/CCT Total # of Minutes Spent Total Time Spent with Patient: Total time spent is greater than 50% in coordination of care (as documented) at patient's floor/unit and/or counseling patient: Coding Level of Care Code 20763 Subseq Hosp Care Lvl 2 Diagnoses Seizure R56.9 Alcohol withdrawal F10.239 Tremor R25.1 Portal hypertension K76.6 Peripheral neuropathy G62.9 Esophageal varices I85.00 Coronary artery disease I25.10 Chronic venous insufficiency I87.2 Alcoholic cirrhosis K70.30 Hypertension I10 Anemia D64.9
[2021-08-09] MEDS: LORazepam 2 MG/1 ML VIAL IV PRN (20:06)
[2021-08-10] MEDS: TUBE FEEDING WATER FLUSH NG SCH ×5 (01:08→22:01)
[2021-08-10] MEDS: LORazepam 2 MG/1 ML VIAL IV PRN (02:56)
[2021-08-10] MEDS: GABAPENTIN 400 MG CAP PO SCH ×2 (05:41→17:55)
--- NOTE | 2021-08-10 08:27 | Hospitalist Progress Note ---
Date of Service August 10, 2021 Assessment & Plan (1) Seizure: Plan: Seizure subsequent to EtoH Withdrawal; Ethyl alcohol on admit 21.1, - CT-H without acute findings - Pt with alcohol withdrawal encephalopathy Pt reports last drink 1-2 days prior to admission, At least 8 beers daily usually slowly improving Continue Keppra 750 mg p.o. twice daily, converted to IV due to swallowing issues Continue Lamictal 300 mg p.o. twice daily\ EEG with no evidence of occult seizure. speech screen failed, NG placed for nutrition/meds. speech re eval 08/10/21 Thiamine continued. 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 Prior outpatient antibody tests negative HCV RNA Continue rifaximin, spironolactone 50 mg daily, Lasix 20 mg daily Continue thiamine supplementation US Liver without signs of hepatic masses. Cirrhosis appreciated. 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, uses 2 canes for mobility Thiamine and acute alcohol withdrawal management as previously noted Pancytopenia Suspect alcohol mediated marrow suppression No signs of active bleeding History of gout typically on allopurinol DVT: SCDs, defer pharmaco ppx in the setting of thrombocytopenia CODE STATUS: Full PT/OT once more clear (2) Alcohol withdrawal: (3) Tremor: (4) Portal hypertension: (5) Peripheral neuropathy: (6) Esophageal varices: (7) Coronary artery disease: (8) Chronic venous insufficiency: (9) Alcoholic cirrhosis: (10) Hypertension: (11) Anemia: Admission and Anticipated Discharge Date Admission Date: August 04, 2021 Subjective pt is awake and attempts to respond to commands, will have speech eval for ability to remove feeding tube. Review of Systems Review of Systems: Unobtainable due to cognitive status overall no real complaints but is sleepy and not completely clear of mentation Physical Exam Physical Exam: The patient appeared well nourished and normally developed he is lethargic overall improved since 08/09/21 Vital signs as documented. Head exam is normocephalic atraumatic Neck is without JVD, thyromegaly, or carotid bruits. Lungs are clear to auscultation, remains diminished bilaterally Cardiac exam, Rhythm is regular.. No murmurs, rubs or gallops. Abdominal exam reveals normal bowel sounds, soft non tender, no masses Extremities are nonedematous and both pedal pulses are present Neurologic exam is awake and tries to follow commands, makes eye contact very little verbal response Skin is without bruises or rashes Results & Data Results & Data ([facility]) Vital Signs (Past 12 Hours) Vital Signs Temp Pulse Pulse Pulse Resp BP BP 08/10/21 07:55 98.6 F 78 19 121/70 08/10/21 02:51 98.1 F 72 24 158/89 H 08/09/21 22:43 98.2 F 70 18 115/71 08/09/21 22:20 74 Pulse Ox 08/10/21 07:55 96 08/10/21 02:51 96 08/09/21 22:43 97 08/09/21 22:20 PG Care Time/CCT Total # of Minutes Spent Total Time Spent with Patient: Total time spent is greater than 50% in coordination of care (as documented) at patient's floor/unit and/or counseling patient: Coding Level of Care Code 11449 Subseq Hosp Care Lvl 2 Diagnoses Seizure R56.9 Alcohol withdrawal F10.239 Tremor R25.1 Portal hypertension K76.6 Peripheral neuropathy G62.9 Esophageal varices I85.00 Coronary artery disease I25.10 Chronic venous insufficiency I87.2 Alcoholic cirrhosis K70.30 Hypertension I10 Anemia D64.9
--- NOTE | 2021-08-10 08:45 | XRay Report ---
XR chest 1V portable HISTORY: Cough. eval for aspiration pneumonia COMPARISON: [facility] 08/07/2021. FINDINGS: Interval development of a right basilar airspace opacity. The left lung is clear. The heart is enlarged. There are low lung volumes. No pneumothorax. Left upper lobe calcified granuloma again noted. Old, healed right midshaft clavicle fracture. Nasogastric tube terminates in the stomach. IMPRESSION: 1. Interval development of right base airspace opacity. This is consistent with a pneumonia and may b e secondary to aspiration. 2. Nasogastric tube terminates in the body of the stomach. ACT 112: Negative or not required by law. Electronically signed by: Roberto Parra M.D. 08/10/2021 8:44 AM
[2021-08-10] MEDS: FOLIC ACID 1 MG TAB PO SCH (08:59)
[2021-08-10] MEDS: levETIRAcetam 750 MG in 0.9 % SODIUM CHLORIDE 100 ML IV SCH ×2 (08:59→21:48)
[2021-08-10] MEDS: allopurinoL 300 MG TAB PO SCH (08:59)
[2021-08-10] MEDS: MULTIVITAMIN TAB PO SCH (08:59)
[2021-08-10] MEDS: THIAMINE HCL 100 MG in SYRINGE 9 ML IV SCH (08:59)
[2021-08-10] MEDS: SPIRONOLACTONE 25 MG TAB PO SCH (09:00)
[2021-08-10] MEDS: rifAXIMin 550 MG TABLET PO SCH ×2 (09:00→22:01)
[2021-08-10] MEDS: lamoTRIgine 100 MG TAB PO SCH ×2 (09:01→22:01)
[2021-08-10] MEDS: METOPROLOL TARTRATE 50 MG TAB NG SCH ×2 (09:01→22:00)
[2021-08-10] MEDS: MAGNESIUM OXIDE 400 MG TAB PO SCH (09:59)
[2021-08-10] MEDS: PANTOprazole 40 MG TAB PO SCH (09:59)
[2021-08-10] MEDS ORDERED: GABAPENTIN 400 MG CAP PO SCH (10:00)
[2021-08-11] MEDS: TUBE FEEDING WATER FLUSH NG SCH ×2 (04:45→16:08)
[2021-08-11] MEDS: lamoTRIgine 100 MG TAB PO SCH ×2 (08:45→20:45)
[2021-08-11] MEDS: MAGNESIUM OXIDE 400 MG TAB PO SCH (08:45)
[2021-08-11] MEDS: METOPROLOL TARTRATE 50 MG TAB NG SCH (08:45)
[2021-08-11] MEDS: FOLIC ACID 1 MG TAB PO SCH (08:45)
[2021-08-11] MEDS: allopurinoL 300 MG TAB PO SCH (08:45)
[2021-08-11] MEDS: PANTOprazole 40 MG TAB PO SCH (08:45)
[2021-08-11] MEDS: MULTIVITAMIN TAB PO SCH (08:46)
[2021-08-11] MEDS: SPIRONOLACTONE 25 MG TAB PO SCH (08:46)
[2021-08-11] MEDS: rifAXIMin 550 MG TABLET PO SCH ×2 (08:48→20:45)
[2021-08-11] MEDS: THIAMINE HCL 100 MG in SYRINGE 9 ML IV SCH (08:50)
[2021-08-11] MEDS: levETIRAcetam 750 MG in 0.9 % SODIUM CHLORIDE 100 ML IV SCH ×2 (08:50→20:41)
[2021-08-11] MEDS: LACTATED RINGER'S 1,000 ML IV SCH ×2 (08:55→17:59)
[2021-08-11 09:41] LABS: BUN Creatinine Ratio 19.4 (10-20); Calcium 8.8 mg/dl (8.5-10.1); Creatinine Clr Calc Pharmacy 155.7 ml/min; Est GFR (African American) 126.7 ml/min; Est GFR (Non-African American) 109.3 ml/min; Magnesium 1.9 mg/dl (1.7-2.4); Phosphorus 3.3 mg/dl (2.5-4.9); Potassium 3.9 mmol/L (3.5-5.1)
--- NOTE | 2021-08-11 15:40 | Hospitalist Progress Note ---
Date of Service August 11, 2021 Assessment & Plan (1) Seizure: Plan: Seizure subsequent to EtoH Withdrawal; Ethyl alcohol on admit 21.1, - CT-H without acute findings - Pt with alcohol withdrawal encephalopathy resolving Pt reports last drink 1-2 days prior to admission, At least 8 beers daily usually slowly improving Continue Keppra 750 mg p.o. twice daily, converted to IV due to swallowing issues Continue Lamictal 300 mg p.o. twice daily\ EEG with no evidence of occult seizure. speech screen failed, NG placed for nutrition/meds. speech re eval 08/10/21 ng pulled Thiamine continued. 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 Prior outpatient antibody tests negative HCV RNA Continue rifaximin, spironolactone 50 mg daily, Lasix 20 mg daily Continue thiamine supplementation US Liver without signs of hepatic masses. Cirrhosis appreciated. 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, uses 2 canes for mobility Thiamine and acute alcohol withdrawal management as previously noted Pancytopenia Suspect alcohol mediated marrow suppression No signs of active bleeding History of gout typically on allopurinol DVT: SCDs, defer pharmaco ppx in the setting of thrombocytopenia CODE STATUS: Full PT/OT once more clear (2) Alcohol withdrawal: (3) Tremor: (4) Portal hypertension: (5) Peripheral neuropathy: (6) Esophageal varices: (7) Coronary artery disease: (8) Chronic venous insufficiency: (9) Alcoholic cirrhosis: (10) Hypertension: (11) Anemia: Admission and Anticipated Discharge Date Admission Date: August 04, 2021 Subjective pt is awake and attempts to respond to commands, continues to slowly improve, speech cleared to eat Review of Systems Review of Systems: overall no real complaints but is sleepy and not completely clear of mentation to have full ROS Physical Exam Physical Exam: The patient appeared well nourished and normally developed he is lethargic overall improved since 08/09/21 Vital signs as documented. Head exam is normocephalic atraumatic Neck is without JVD, thyromegaly, or carotid bruits. Lungs are clear to auscultation, remains diminished bilaterally Cardiac exam, Rhythm is regular.. No murmurs, rubs or gallops. Abdominal exam reveals normal bowel sounds, soft non tender, no masses Extremities are nonedematous and both pedal pulses are present Neurologic exam is awake and tries to follow commands, makes eye contact very little verbal response Skin is without bruises or rashes Results & Data Results & Data ([facility]) Vital Signs (Past 12 Hours) Vital Signs Temp Pulse Resp BP Pulse Ox 08/11/21 10:40 97.9 F 70 22 146/83 H 95 08/11/21 08:03 98.6 F 81 22 165/96 H 94 PG Care Time/CCT Total # of Minutes Spent Total Time Spent with Patient: Total time spent is greater than 50% in coordination of care (as documented) at patient's floor/unit and/or counseling patient: Coding Level of Care Code 89535 Subseq Hosp Care Lvl 2 Diagnoses Seizure R56.9 Alcohol withdrawal F10.239 Tremor R25.1 Portal hypertension K76.6 Peripheral neuropathy G62.9 Esophageal varices I85.00 Coronary artery disease I25.10 Chronic venous insufficiency I87.2 Alcoholic cirrhosis K70.30 Hypertension I10 Anemia D64.9
[2021-08-11] MEDS ORDERED: GABAPENTIN 400 MG CAP PO SCH ×2 (18:00→22:00)
[2021-08-11] MEDS: METOPROLOL TARTRATE 50 MG TAB PO SCH (20:45)
[2021-08-11] MEDS: LORazepam 2 MG/1 ML VIAL IV PRN (20:49)
[2021-08-12 06:58] LABS: BUN Creatinine Ratio 15.8 (10-20); Calcium 8.5 mg/dl (8.5-10.1); Creatinine Clr Calc Pharmacy 169.4 ml/min; Est GFR (African American) 131.2 ml/min; Est GFR (Non-African American) 113.2 ml/min; Potassium 3.6 mmol/L (3.5-5.1)
[2021-08-12] MEDS: rifAXIMin 550 MG TABLET PO SCH ×2 (08:28→20:14)
[2021-08-12] MEDS: METOPROLOL TARTRATE 50 MG TAB PO SCH ×2 (08:28→20:14)
[2021-08-12] MEDS: MULTIVITAMIN TAB PO SCH (08:28)
[2021-08-12] MEDS: PANTOprazole 40 MG TAB PO SCH (08:28)
[2021-08-12] MEDS: lamoTRIgine 100 MG TAB PO SCH ×2 (08:28→20:14)
[2021-08-12] MEDS: allopurinoL 300 MG TAB PO SCH (08:29)
[2021-08-12] MEDS: FOLIC ACID 1 MG TAB PO SCH (08:29)
[2021-08-12] MEDS: SPIRONOLACTONE 25 MG TAB PO SCH (08:29)
[2021-08-12] MEDS: MAGNESIUM OXIDE 400 MG TAB PO SCH (08:29)
[2021-08-12] MEDS: THIAMINE HCL 100 MG in SYRINGE 9 ML IV SCH (08:36)
[2021-08-12] MEDS: levETIRAcetam 750 MG in 0.9 % SODIUM CHLORIDE 100 ML IV SCH ×2 (08:43→20:14)
--- NOTE | 2021-08-12 14:36 | Hospitalist Progress Note ---
Date of Service August 12, 2021 Assessment & Plan (1) Seizure: Plan: Seizure subsequent to EtoH Withdrawal; Ethyl alcohol on admit 21.1, - CT-H without acute findings - Pt with alcohol withdrawal encephalopathy resolving Pt reports last drink 1-2 days prior to admission, At least 8 beers daily usually Remains with encephalopathy Continue Keppra 750 mg p.o. twice daily, converted to IV due to swallowing issues Continue Lamictal 300 mg p.o. twice daily\ EEG with no evidence of occult seizure. Initial speech screen failed, NG placed for nutrition/meds. speech re eval 08/10/21 ng pulled, able to tolerate diet able to eat but not feed himself Thiamine continued. 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 Prior outpatient antibody tests negative HCV RNA Continue rifaximin, spironolactone 50 mg daily, Lasix 20 mg daily Continue thiamine supplementation US Liver without signs of hepatic masses. Cirrhosis appreciated. 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, uses 2 canes for mobility Thiamine and acute alcohol withdrawal management as previously noted Pancytopenia Suspect alcohol mediated marrow suppression No signs of active bleeding History of gout typically on allopurinol DVT: SCDs, defer pharmaco ppx in the setting of thrombocytopenia CODE STATUS: Full PT/OT once more clear (2) Alcohol withdrawal: (3) Tremor: (4) Portal hypertension: (5) Peripheral neuropathy: (6) Esophageal varices: (7) Coronary artery disease: (8) Chronic venous insufficiency: (9) Alcoholic cirrhosis: (10) Hypertension: (11) Anemia: Admission and Anticipated Discharge Date Admission Date: August 04, 2021 Subjective pt is awake and attempts to respond to commands, continues to slowly improve, speech cleared to eat Review of Systems Review of Systems: Mild distress and significant fatigue no headache, no visual changes To speak in short sentences no chest pain, pressure or palpitations no shortness of breath, cough or wheezes no abdominal pain, nausea or vomiting, diarrhea or constipation no bruising, bleeding or rashes no focal signs of weakness or numbness continues with altered alertness Physical Exam Physical Exam: The patient appeared chronically ill and a bit obtunded Vital signs as documented. Head exam is normocephalic atraumatic Neck is without JVD, thyromegaly, or carotid bruits. Lungs are clear to auscultation, no focal loss of breath sounds Cardiac exam, Rhythm is regular.. No murmurs, rubs or gallops. Abdominal exam reveals normal bowel sounds, soft non tender, no masses Extremities are nonedematous and both pedal pulses are present Neurologic exam is alert and oriented x1 no focal loss of strength or sensation can move extremities and follows some commands Skin is without bruises or rashes Results & Data Results & Data ([facility]) Vital Signs (Past 12 Hours) Vital Signs Temp Pulse Resp BP Pulse Ox 08/12/21 07:09 99.3 F 88 18 149/95 H 94 PG Care Time/CCT Total # of Minutes Spent Total Time Spent with Patient: Total time spent is greater than 50% in coordination of care (as documented) at patient's floor/unit and/or counseling patient: Coding Level of Care Code 06126 Subseq Hosp Care Lvl 2 Diagnoses Seizure R56.9 Alcohol withdrawal F10.239 Tremor R25.1 Portal hypertension K76.6 Peripheral neuropathy G62.9 Esophageal varices I85.00 Coronary artery disease I25.10 Chronic venous insufficiency I87.2 Alcoholic cirrhosis K70.30 Hypertension I10 Anemia D64.9
[2021-08-13 06:19] LABS: Hematocrit (blood only) 37.5 % (42-52); Mean Corpuscular Hemoglobin 36.8 pg (25-34); Mean Corpuscular Hgb Conc 34.7 g/dL (32-36); Mean Corpuscular Volume 106.2 fL (80-100); Mean Platelet Volume 10.3 fL (7.4-10.4); Platelet Count 128 K/uL (130-400); RDW Coefficient of Variation 13.3 % (11.5-14.5); Red Blood Count 3.53 M/uL (4.7-6.1); White Blood Count 4.78 K/uL (4.8-10.8)
[2021-08-13 06:54] LABS: BUN Creatinine Ratio 12.5 (10-20); Calcium 8.7 mg/dl (8.5-10.1); Creatinine Clr Calc Pharmacy 134.1 ml/min; Est GFR (African American) 119.2 ml/min; Est GFR (Non-African American) 102.8 ml/min; Magnesium 1.9 mg/dl (1.7-2.4); Potassium 3.6 mmol/L (3.5-5.1)
[2021-08-13] MEDS: levETIRAcetam 750 MG in 0.9 % SODIUM CHLORIDE 100 ML IV SCH ×2 (08:15→20:41)
[2021-08-13] MEDS: MAGNESIUM OXIDE 400 MG TAB PO SCH (08:16)
[2021-08-13] MEDS: rifAXIMin 550 MG TABLET PO SCH ×2 (08:16→20:42)
[2021-08-13] MEDS: THIAMINE HCL 100 MG in SYRINGE 9 ML IV SCH (08:16)
[2021-08-13] MEDS: PANTOprazole 40 MG TAB PO SCH (08:16)
[2021-08-13] MEDS: allopurinoL 300 MG TAB PO SCH (08:17)
[2021-08-13] MEDS: SPIRONOLACTONE 25 MG TAB PO SCH (08:17)
[2021-08-13] MEDS: lamoTRIgine 100 MG TAB PO SCH ×2 (08:17→20:41)
[2021-08-13] MEDS: METOPROLOL TARTRATE 50 MG TAB PO SCH ×2 (08:17→20:42)
[2021-08-13] MEDS: FOLIC ACID 1 MG TAB PO SCH (08:17)
[2021-08-13] MEDS: MULTIVITAMIN TAB PO SCH (08:18)
--- NOTE | 2021-08-13 13:49 | Hospitalist Progress Note ---
Date of Service August 13, 2021 Assessment & Plan (1) Seizure: Plan: Seizure subsequent to EtoH Withdrawal; Ethyl alcohol on admit 21.1, - CT-H without acute findings - Pt with alcohol withdrawal encephalopathy resolving Pt reports last drink 1-2 days prior to admission, At least 8 beers daily usually Remains with encephalopathy Continue Keppra 750 mg p.o. twice daily, converted to IV due to swallowing issues Continue Lamictal 300 mg p.o. twice daily\ EEG with no evidence of occult seizure. Initial speech screen failed, NG placed for nutrition/meds. speech re eval 08/10/21 ng pulled, able to tolerate diet able to eat but not feed himself Thiamine continued. Patient appears to be weaker than his baseline. Will obtain PT/OT. Patient will likely need to be placed. 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 Prior outpatient antibody tests negative HCV RNA Continue rifaximin, spironolactone 50 mg daily, Lasix 20 mg daily Continue thiamine supplementation US Liver without signs of hepatic masses. Cirrhosis appreciated. 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, uses 2 canes for mobility Thiamine and acute alcohol withdrawal management as previously noted Pancytopenia Suspect alcohol mediated marrow suppression No signs of active bleeding History of gout typically on allopurinol DVT: SCDs, defer pharmaco ppx in the setting of thrombocytopenia CODE STATUS: Full PT/OT once more clear (2) Alcohol withdrawal: (3) Tremor: (4) Portal hypertension: (5) Peripheral neuropathy: (6) Esophageal varices: (7) Coronary artery disease: (8) Chronic venous insufficiency: (9) Alcoholic cirrhosis: (10) Hypertension: (11) Anemia: Admission and Anticipated Discharge Date Admission Date: August 04, 2021 Subjective Patient is more awake. Patient reports feeling weak. Updated his . Review of Systems Review of Systems: All systems reviewed & are unremarkable except as noted in HPI & below Physical Exam Physical Exam: The patient appeared chronically ill and a bit obtunded Vital signs as documented. Head exam is normocephalic atraumatic Neck is without JVD, thyromegaly, or carotid bruits. Lungs are clear to auscultation, no focal loss of breath sounds Cardiac exam, Rhythm is regular.. No murmurs, rubs or gallops. Abdominal exam reveals normal bowel sounds, soft non tender, no masses Extremities are nonedematous and both pedal pulses are present Neurologic exam is alert and oriented x1 no focal loss of strength or sensation can move extremities and follows some commands Skin is without bruises or rashes Results & Data Results & Data ([facility]) Vital Signs (Past 12 Hours) Vital Signs Temp Pulse Resp BP Pulse Ox 08/13/21 07:21 37.3 C 81 18 180/91 H 95 PG Care Time/CCT Total # of Minutes Spent Total Time Spent with Patient: Total time spent is greater than 50% in coordination of care (as documented) at patient's floor/unit and/or counseling patient: Coding Level of Care Code 19421 Subseq Hosp Care Lvl 2 Diagnoses Seizure R56.9 Alcohol withdrawal F10.239 Tremor R25.1 Portal hypertension K76.6 Peripheral neuropathy G62.9 Esophageal varices I85.00 Coronary artery disease I25.10 Chronic venous insufficiency I87.2 Alcoholic cirrhosis K70.30 Hypertension I10 Anemia D64.9
[2021-08-14] MEDS: LORazepam 2 MG/1 ML VIAL IV PRN (00:31)
[2021-08-14 08:31] LABS: Hematocrit (blood only) 37.7 % (42-52); Hemoglobin 12.9 g/dL (14.0-18.0); Mean Corpuscular Hgb Conc 34.2 g/dL (32-36); Mean Corpuscular Volume 105.3 fL (80-100); Mean Platelet Volume 10.4 fL (7.4-10.4); Platelet Count 144 K/uL (130-400); RDW Coefficient of Variation 13.6 % (11.5-14.5); RDW Standard Deviation 52.1 fL (36.4-46.3); Red Blood Count 3.58 M/uL (4.7-6.1); White Blood Count 4.65 K/uL (4.8-10.8)
[2021-08-14 08:54] LABS: Albumin Globulin Ratio 0.7 (0.9-2); BUN Creatinine Ratio 17.2 (10-20); Bilirubin,Total 2.3 mg/dl (0.2-1.0); Calcium 8.8 mg/dl (8.5-10.1); Creatinine Clr Calc Pharmacy 166.4 ml/min; Est GFR (African American) 130.3 ml/min; Est GFR (Non-African American) 112.4 ml/min; Globulin 4.2 gm/dl (2.5-4.0); Potassium 3.6 mmol/L (3.5-5.1); Total Protein 7.2 gm/dl (6.0-8.3)
[2021-08-14] MEDS: levETIRAcetam 750 MG in 0.9 % SODIUM CHLORIDE 100 ML IV SCH ×2 (09:00→20:48)
[2021-08-14] MEDS: THIAMINE HCL 100 MG in SYRINGE 9 ML IV SCH (09:05)
[2021-08-14] MEDS: lamoTRIgine 100 MG TAB PO SCH ×2 (10:05→20:48)
[2021-08-14] MEDS: METOPROLOL TARTRATE 50 MG TAB PO SCH ×2 (10:05→20:48)
[2021-08-14] MEDS: SPIRONOLACTONE 25 MG TAB PO SCH (10:05)
[2021-08-14] MEDS: rifAXIMin 550 MG TABLET PO SCH ×2 (10:07→20:48)
[2021-08-14] MEDS: MULTIVITAMIN TAB PO SCH (10:07)
[2021-08-14] MEDS: FOLIC ACID 1 MG TAB PO SCH (10:07)
[2021-08-14] MEDS: MAGNESIUM OXIDE 400 MG TAB PO SCH (10:07)
[2021-08-14] MEDS: PANTOprazole 40 MG TAB PO SCH (10:07)
[2021-08-14] MEDS: allopurinoL 300 MG TAB PO SCH (10:07)
--- NOTE | 2021-08-14 21:15 | Hospitalist Progress Note ---
Date of Service August 14, 2021 Assessment & Plan (1) Seizure: Plan: Seizure subsequent to EtoH Withdrawal; Ethyl alcohol on admit 21.1, - CT-H without acute findings - Pt with alcohol withdrawal encephalopathy resolving Pt reports last drink 1-2 days prior to admission, At least 8 beers daily usually Remains with encephalopathy Continue Keppra 750 mg p.o. twice daily, converted to IV due to swallowing issues Continue Lamictal 300 mg p.o. twice daily\ EEG with no evidence of occult seizure. Initial speech screen failed, NG placed for nutrition/meds. speech re eval 08/10/21 ng pulled, able to tolerate diet able to eat but not feed himself Thiamine continued. Patient appears to be weaker than his baseline. Will obtain PT/OT. Patient will likely need to be placed. unwilling to participate in PT today. 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 Prior outpatient antibody tests negative HCV RNA Continue rifaximin, spironolactone 50 mg daily, Lasix 20 mg daily Continue thiamine supplementation US Liver without signs of hepatic masses. Cirrhosis appreciated. 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, uses 2 canes for mobility Thiamine and acute alcohol withdrawal management as previously noted Pancytopenia Suspect alcohol mediated marrow suppression No signs of active bleeding History of gout typically on allopurinol DVT: SCDs, defer pharmaco ppx in the setting of thrombocytopenia CODE STATUS: Full PT/OT once more clear (2) Alcohol withdrawal: (3) Tremor: (4) Portal hypertension: (5) Peripheral neuropathy: (6) Esophageal varices: (7) Coronary artery disease: (8) Chronic venous insufficiency: (9) Alcoholic cirrhosis: (10) Hypertension: (11) Anemia: Admission and Anticipated Discharge Date Admission Date: August 04, 2021 Subjective Patient is a poor historian. Review of Systems Review of Systems: All systems reviewed & are unremarkable except as noted in HPI & below Physical Exam Physical Exam: The patient appeared chronically ill and a bit obtunded Vital signs as documented. Head exam is normocephalic atraumatic Neck is without JVD, thyromegaly, or carotid bruits. Lungs are clear to auscultation, no focal loss of breath sounds Cardiac exam, Rhythm is regular.. No murmurs, rubs or gallops. Abdominal exam reveals normal bowel sounds, soft non tender, no masses Extremities are nonedematous and both pedal pulses are present Neurologic exam is alert and oriented x1 no focal loss of strength or sensation can move extremities and follows some commands Skin is without bruises or rashes Results & Data Results & Data ([facility]) Vital Signs (Past 12 Hours) Vital Signs Temp Pulse Resp BP Pulse Ox 08/14/21 15:05 36.5 C 82 18 158/90 H 97 PG Care Time/CCT Total # of Minutes Spent Total Time Spent with Patient: Total time spent is greater than 50% in coordination of care (as documented) at patient's floor/unit and/or counseling patient: Coding Level of Care Code 22211 Subseq Hosp Care Lvl 2 Diagnoses Seizure R56.9 Alcohol withdrawal F10.239 Tremor R25.1 Portal hypertension K76.6 Peripheral neuropathy G62.9 Esophageal varices I85.00 Coronary artery disease I25.10 Chronic venous insufficiency I87.2 Alcoholic cirrhosis K70.30 Hypertension I10 Anemia D64.9
[2021-08-15] MEDS: THIAMINE HCL 100 MG in SYRINGE 9 ML IV SCH (08:14)
[2021-08-15] MEDS: levETIRAcetam 750 MG in 0.9 % SODIUM CHLORIDE 100 ML IV SCH ×2 (08:15→20:27)
[2021-08-15] MEDS: SPIRONOLACTONE 25 MG TAB PO SCH (08:15)
[2021-08-15] MEDS: MULTIVITAMIN TAB PO SCH (08:15)
[2021-08-15] MEDS: FOLIC ACID 1 MG TAB PO SCH (08:15)
[2021-08-15] MEDS: METOPROLOL TARTRATE 50 MG TAB PO SCH ×2 (08:15→20:30)
[2021-08-15] MEDS: rifAXIMin 550 MG TABLET PO SCH ×2 (08:15→20:30)
[2021-08-15] MEDS: lamoTRIgine 100 MG TAB PO SCH ×2 (08:15→20:29)
[2021-08-15] MEDS: MAGNESIUM OXIDE 400 MG TAB PO SCH (08:15)
[2021-08-15] MEDS: PANTOprazole 40 MG TAB PO SCH (08:15)
[2021-08-15] MEDS: allopurinoL 300 MG TAB PO SCH (08:16)
[2021-08-15 10:42] LABS: Hematocrit (blood only) 38.2 % (42-52); Hemoglobin 12.9 g/dL (14.0-18.0); Mean Corpuscular Hemoglobin 35.7 pg (25-34); Mean Corpuscular Hgb Conc 33.8 g/dL (32-36); Mean Corpuscular Volume 105.8 fL (80-100); Mean Platelet Volume 10.2 fL (7.4-10.4); Platelet Count 158 K/uL (130-400); RDW Coefficient of Variation 13.8 % (11.5-14.5); RDW Standard Deviation 53.7 fL (36.4-46.3); Red Blood Count 3.61 M/uL (4.7-6.1)
[2021-08-15 11:05] LABS: BUN Creatinine Ratio 13.9 (10-20); Bilirubin Direct 1.1 mg/dl (0-0.2); Bilirubin,Total 2.4 mg/dl (0.2-1.0); Calcium 8.8 mg/dl (8.5-10.1); Creatinine Clr Calc Pharmacy 134.1 ml/min; Est GFR (African American) 119.2 ml/min; Est GFR (Non-African American) 102.8 ml/min; Magnesium 1.9 mg/dl (1.7-2.4); Potassium 3.6 mmol/L (3.5-5.1); Total Protein 7.1 gm/dl (6.0-8.3)
--- NOTE | 2021-08-15 21:11 | Hospitalist Progress Note ---
Date of Service August 15, 2021 Assessment & Plan (1) Seizure: Plan: Seizure subsequent to EtoH Withdrawal; Ethyl alcohol on admit 21.1, - CT-H without acute findings - Pt with alcohol withdrawal encephalopathy resolving Pt reports last drink 1-2 days prior to admission, At least 8 beers daily usually Remains with encephalopathy Continue Keppra 750 mg p.o. twice daily, converted to IV due to swallowing issues Continue Lamictal 300 mg p.o. twice daily\ EEG with no evidence of occult seizure. Initial speech screen failed, NG placed for nutrition/meds. speech re eval 08/10/21 ng pulled, able to tolerate diet able to eat but not feed himself Thiamine continued. Patient appears to be weaker than his baseline. D/W , patient is active at home Sister reports he did have a similar episode years ago where he was obtunded and required to be hospitalized for 2 weeks after drinking Will obtain PT/OT. Patient will likely need to be placed. Patient stood up but unable to follow commands, he was ataxic on PT noted. Unable to follow commands at this time, discharged held until patient is able to follow commands for SNF. If no improvement, may consider MRI brain w/wo contrast. Patient does have a plate in his head from an injury when patient was young, this appears to be MRI compatible as he has had MRI of foot since then. 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 Prior outpatient antibody tests negative HCV RNA Continue rifaximin, spironolactone 50 mg daily, Lasix 20 mg daily Continue thiamine supplementation US Liver without signs of hepatic masses. Cirrhosis appreciated. 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, uses 2 canes for mobility Thiamine and acute alcohol withdrawal management as previously noted Pancytopenia Suspect alcohol mediated marrow suppression No signs of active bleeding History of gout typically on allopurinol DVT: SCDs, defer pharmaco ppx in the setting of thrombocytopenia CODE STATUS: Full PT/OT once more clear (2) Alcohol withdrawal: (3) Tremor: (4) Portal hypertension: (5) Peripheral neuropathy: (6) Esophageal varices: (7) Coronary artery disease: (8) Chronic venous insufficiency: (9) Alcoholic cirrhosis: (10) Hypertension: (11) Anemia: Admission and Anticipated Discharge Date Admission Date: August 04, 2021 Subjective Patient does not participate in questioning. Review of Systems Review of Systems: All systems reviewed & are unremarkable except as noted in HPI & below Physical Exam Physical Exam: The patient appeared chronically ill and a bit obtunded Vital signs as documented. Head exam is normocephalic atraumatic Neck is without JVD, thyromegaly, or carotid bruits. Lungs are clear to auscultation, no focal loss of breath sounds Cardiac exam, Rhythm is regular.. No murmurs, rubs or gallops. Abdominal exam reveals normal bowel sounds, soft non tender, no masses Extremities are nonedematous and both pedal pulses are present Neurologic exam is alert and oriented x1 no focal loss of strength or sensation can move extremities and follows some commands Skin is without bruises or rashes Results & Data Results & Data ([facility]) Vital Signs (Past 12 Hours) Vital Signs Temp Pulse Resp BP Pulse Ox 08/15/21 20:22 36.9 C 84 18 153/84 H 96 08/15/21 15:15 37 C 90 18 121/77 94 PG Care Time/CCT Total # of Minutes Spent Total Time Spent with Patient: Total time spent is greater than 50% in coordination of care (as documented) at patient's floor/unit and/or counseling patient: Coding Level of Care Code 68223 Subseq Hosp Care Lvl 2 Diagnoses Seizure R56.9 Alcohol withdrawal F10.239 Tremor R25.1 Portal hypertension K76.6 Peripheral neuropathy G62.9 Esophageal varices I85.00 Coronary artery disease I25.10 Chronic venous insufficiency I87.2 Alcoholic cirrhosis K70.30 Hypertension I10 Anemia D64.9
[2021-08-16 08:17] LABS: Hematocrit (blood only) 39.3 % (42-52); Hemoglobin 13.2 g/dL (14.0-18.0); Mean Corpuscular Hemoglobin 35.7 pg (25-34); Mean Corpuscular Hgb Conc 33.6 g/dL (32-36); Mean Corpuscular Volume 106.2 fL (80-100); Mean Platelet Volume 9.9 fL (7.4-10.4); Platelet Count 159 K/uL (130-400); RDW Coefficient of Variation 13.7 % (11.5-14.5); RDW Standard Deviation 53.1 fL (36.4-46.3); White Blood Count 4.93 K/uL (4.8-10.8)
[2021-08-16] MEDS: levETIRAcetam 750 MG in 0.9 % SODIUM CHLORIDE 100 ML IV SCH ×2 (09:52→19:57)
[2021-08-16] MEDS: MULTIVITAMIN TAB PO SCH (09:53)
[2021-08-16] MEDS: FOLIC ACID 1 MG TAB PO SCH (09:53)
[2021-08-16] MEDS: allopurinoL 300 MG TAB PO SCH (09:53)
[2021-08-16] MEDS: SPIRONOLACTONE 25 MG TAB PO SCH (09:53)
[2021-08-16] MEDS: rifAXIMin 550 MG TABLET PO SCH ×2 (09:53→19:58)
[2021-08-16] MEDS: PANTOprazole 40 MG TAB PO SCH (09:53)
[2021-08-16] MEDS: MAGNESIUM OXIDE 400 MG TAB PO SCH (09:53)
[2021-08-16] MEDS: lamoTRIgine 100 MG TAB PO SCH ×2 (09:53→19:57)
[2021-08-16] MEDS: THIAMINE HCL 100 MG in SYRINGE 9 ML IV SCH (09:53)
[2021-08-16] MEDS: METOPROLOL TARTRATE 50 MG TAB PO SCH (09:54)
--- NOTE | 2021-08-16 14:52 | Hospitalist Progress Note ---
Date of Service August 16, 2021 Assessment & Plan (1) Seizure: Plan: Seizure subsequent to EtoH Withdrawal; Ethyl alcohol on admit 21.1, - CT-H without acute findings Pt with alcohol withdrawal encephalopathy resolving Pt reports last drink 1-2 days prior to admission, At least 8 beers daily usually Continue Keppra 750 mg p.o. twice daily, converted to IV due to swallowing issues Continue Lamictal 300 mg p.o. twice daily EEG with no evidence of occult seizure. Initial speech screen failed, NG placed for nutrition/meds. speech re eval 08/10/21 ng pulled, able to tolerate diet able to eat but not feed himself On daily IV Thiamine 100mg. 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 Prior outpatient antibody tests negative HCV RNA Continue rifaximin, spironolactone 50 mg daily, Lasix 20 mg daily Continue thiamine supplementation US Liver without signs of hepatic masses. Cirrhosis appreciated. typically follows [place] [facility] EGD 08/11: Grade 1 varices in lower third of the esophagus ammonia 08/08 is normal, scl70 has a titre, lfts are stable will have follow up in outpt (8) Hypertension: Plan: Lopressor 50mg BID on board, will uptitrate to 75mg BID for tighter BP and HR control (9) Anemia: Plan: Apparently was pancytopenic at some point during this hospitalization which was felt to be secondary to EtOH mediated marrow suppression no longer an issue, platelets and wbc count have normalized H&H uptrending Plan: OT finally able to work with patient today. He is completely dependent throughout assessment. OT agreed pt will require SNF upon d/c. Will add Hydroxyzine 25mg q8h prn restlessness/anxiety. Follow up labs in AM. Case management following for d/c planning. Additional referrals sent (as was initially requesting [facility] or [facility], [facility] no beds and [facility] will likely not accept). Will discuss plan w/ attending. Admission and Anticipated Discharge Date Admission Date: August 04, 2021 Supervising Physician Co-Signing Physician Notes reviewed and agree christine Trejo PAC Subjective Patient seen on daily rounds this morning. Pt does not participate in questioning. He is oriented to only self. RN notes that he has been very restless and is wondering if something can be provided on an as needed basis for anxiety/restlessness. Review of Systems Review of Systems: unobtainable Physical Exam Physical Exam: GENERAL: 56 yo Well-developed, well-nourished WM. NAD. LUNGS: Clear to auscultation bilaterally. CARDIOVASCULAR: Regular rate and rhythm. No M/G/R. No JVD. ABDOMEN: Soft, non-tender and non-distended. BS normal x 4 quad. EXTREMITIES: No edema. Non-tender. Peripheral pulses +2/4. NEUROLOGIC: A&O x3. No focal neurological deficits. PSYCHIATRIC: Cooperative. Appropriate mood and affect. SKIN: Warm, dry, intact. No rashes or lesions. Results & Data Results & Data ([facility]) Vital Signs (Past 12 Hours) Vital Signs Temp Pulse Resp BP Pulse Ox 08/16/21 07:40 37.2 C 92 H 18 158/88 H 96 Laboratory Results 08/16/21 07:57 08/15/21 10:22 PG Care Time/CCT Total # of Minutes Spent Total Time Spent with Patient: Total time spent is greater than 50% in coordination of care (as documented) at patient's floor/unit and/or counseling patient: Coding Level of Care Code 49910 Subseq Hosp Care Lvl 2 Diagnoses Seizure R56.9 Alcohol withdrawal F10.239 Tremor R25.1 Portal hypertension K76.6 Peripheral neuropathy G62.9 Coronary artery disease I25.10 Alcoholic cirrhosis K70.30 Hypertension I10 Anemia D64.9
[2021-08-16] MEDS: hydrOXYzine HCl 25 MG TAB PO PRN (19:58)
[2021-08-16] MEDS: METOPROLOL TARTRATE 25 MG TAB PO SCH (19:58)
[2021-08-17 06:49] LABS: Albumin Globulin Ratio 0.7 (0.9-2); Albumin Level 3.1 gm/dl (3.4-5.0); BUN Creatinine Ratio 13.7 (10-20); Bilirubin,Total 2.4 mg/dl (0.2-1.0); Calcium 9.1 mg/dl (8.5-10.1); Creatinine Clr Calc Pharmacy 132.2 ml/min; Est GFR (African American) 118.5 ml/min; Est GFR (Non-African American) 102.2 ml/min; Globulin 4.4 gm/dl (2.5-4.0); Potassium 3.7 mmol/L (3.5-5.1); Total Protein 7.5 gm/dl (6.0-8.3)
[2021-08-17] MEDS: hydrOXYzine HCl 25 MG TAB PO PRN (08:02)
[2021-08-17] MEDS: MAGNESIUM OXIDE 400 MG TAB PO SCH (08:02)
[2021-08-17] MEDS: allopurinoL 300 MG TAB PO SCH (08:02)
[2021-08-17] MEDS: METOPROLOL TARTRATE 25 MG TAB PO SCH ×2 (08:02→21:54)
[2021-08-17] MEDS: FOLIC ACID 1 MG TAB PO SCH (08:02)
[2021-08-17] MEDS: lamoTRIgine 100 MG TAB PO SCH ×2 (08:02→21:54)
[2021-08-17] MEDS: SPIRONOLACTONE 25 MG TAB PO SCH (08:02)
[2021-08-17] MEDS: MULTIVITAMIN TAB PO SCH (08:03)
[2021-08-17] MEDS: PANTOprazole 40 MG TAB PO SCH (08:03)
[2021-08-17] MEDS: rifAXIMin 550 MG TABLET PO SCH ×2 (08:03→21:53)
[2021-08-17] MEDS: levETIRAcetam 750 MG in 0.9 % SODIUM CHLORIDE 100 ML IV SCH (08:03)
[2021-08-17] MEDS: THIAMINE HCL 100 MG in SYRINGE 9 ML IV SCH (08:03)
--- NOTE | 2021-08-17 13:26 | Hospitalist Progress Note ---
Date of Service August 17, 2021 Assessment & Plan (1) Seizure: Plan: Seizure subsequent to EtoH Withdrawal; Ethyl alcohol on admit 21.1, - CT-H without acute findings Pt with alcohol withdrawal encephalopathy resolving Pt reports last drink 1-2 days prior to admission, At least 8 beers daily usually Continue Keppra 750 mg p.o. twice daily, converted to IV due to swallowing issues but will transition back to oral Continue Lamictal 300 mg p.o. twice daily EEG with no evidence of occult seizure. Initial speech screen failed, NG placed for nutrition/meds. 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 Prior outpatient antibody tests negative HCV RNA Continue rifaximin, spironolactone 50 mg daily, Lasix 20 mg daily Continue thiamine supplementation US Liver without signs of hepatic masses. Cirrhosis appreciated. typically follows [place] [facility] EGD 08/11: Grade 1 varices in lower third of the esophagus ammonia 08/08 is normal, scl70 has a titre, lfts are stable will have follow up in outpt LFTs stable (8) Hypertension: Plan: Lopressor 50mg BID on board, will uptitrate to 75mg BID for tighter BP and HR control (9) Anemia: Plan: Apparently was pancytopenic at some point during this hospitalization which was felt to be secondary to EtOH mediated marrow suppression no longer an issue, platelets and wbc count have normalized H&H uptrending Plan: OT finally able to work with patient today. He is completely dependent throughout assessment. OT agreed pt will require SNF upon d/c. Will add Hydroxyzine 25mg q8h prn restlessness/anxiety. Follow up labs in AM. Case management following for d/c planning. Per case management, [facility] will take him but cannot take him today (08/17). Hopefully they can take him over the weekend. Will d/w attending. Admission and Anticipated Discharge Date Admission Date: August 04, 2021 Supervising Physician Co-Signing Physician Notes reviewed and agree christine Trejo PAC Subjective Patient seen on daily rounds this morning. Pt does not participate in questioning. He is oriented to only self. Per staff, just keeps undressing self and asking for beer. Review of Systems Review of Systems: unobtainable Physical Exam Physical Exam: GENERAL: 56 yo Well-developed, well-nourished WM. NAD. LUNGS: Clear to auscultation bilaterally. CARDIOVASCULAR: Regular rate and rhythm. No M/G/R. No JVD. ABDOMEN: Soft, non-tender and non-distended. BS normal x 4 quad. EXTREMITIES: No edema. Non-tender. Peripheral pulses +2/4. NEUROLOGIC: A&O x3. No focal neurological deficits. PSYCHIATRIC: Cooperative. Appropriate mood and affect. SKIN: Warm, dry, intact. No rashes or lesions. Results & Data Results & Data ([facility]) Vital Signs (Past 12 Hours) Vital Signs Temp Pulse Resp BP Pulse Ox 08/17/21 07:39 36.6 C 79 18 145/85 H 97 Laboratory Results 08/16/21 07:57 08/17/21 05:46 PG Care Time/CCT Total # of Minutes Spent Total Time Spent with Patient: Total time spent is greater than 50% in coordination of care (as documented) at patient's floor/unit and/or counseling patient: Coding Level of Care Code 05984 Subseq Hosp Care Lvl 2 Diagnoses Seizure R56.9 Alcohol withdrawal F10.239 Tremor R25.1 Portal hypertension K76.6 Peripheral neuropathy G62.9 Coronary artery disease I25.10 Alcoholic cirrhosis K70.30 Hypertension I10 Anemia D64.9
[2021-08-17] MEDS ORDERED: GADOBUTROL 65ML VIAL IV ONE (21:38)
--- NOTE | 2021-08-17 21:52 | Magnetic Resonance Report ---
MRI OF THE BRAIN COMBO CLINICAL HISTORY: Encephalopathy. Alcohol withdrawal. COMPARISON STUDY: CT of the brain dated 08/04/2021. MRI of the brain dated 10/08/2017. TECHNIQUE: MRI of the brain was performed utilizing various T1 and T2-weighted sequences in the axial , sagittal, and coronal planes. Contrast-enhanced sequences were acquired following the administratio n of 10 cc of Gadavist. Examination is degraded by motion artifact. FINDINGS: Brain parenchyma: Involutional change is advanced for age. Right frontal encephalomalacia is unchange d and consistent with a remote insult. There is no hemorrhage or mass effect. There is no restricted diffusion to suggest acute ischemia. No enhancing mass lesion is identified on the postcontrast image s. Ayala-white matter differentiation is preserved. No extra-axial fluid collection is seen. The cereb ellar tonsils are normal in configuration. Ventricles, sulci, and cisterns: Prominent secondary to involutional change. Pituitary and sella: Unremarkable. Intracranial vasculature: Normal flow voids are maintained at the skull base. Orbits: The bony orbits are grossly intact. Orbital contents are normal in appearance. Sinuses and mastoids: Clear. Calvarium: There is chronic deformity of the right frontal convexity. No destructive calvarial lesion is identified. Cervical cord: Partially visualized cervical spinal cord is normal in morphology and signal intensity . IMPRESSION: No acute intracranial abnormality. ACT 112: Negative or not required by law. Electronically signed by: Mike Jay M.D. 08/17/2021 9:49 PM
[2021-08-17] MEDS: levETIRAcetam 250 MG TAB PO SCH (21:53)
[2021-08-18] MEDS: levETIRAcetam 250 MG TAB PO SCH ×2 (07:28→20:19)
[2021-08-18] MEDS: lamoTRIgine 100 MG TAB PO SCH ×2 (07:29→20:22)
[2021-08-18] MEDS: MAGNESIUM OXIDE 400 MG TAB PO SCH (07:29)
[2021-08-18] MEDS: METOPROLOL TARTRATE 25 MG TAB PO SCH ×2 (07:37→20:21)
[2021-08-18] MEDS: rifAXIMin 550 MG TABLET PO SCH ×2 (07:38→20:19)
[2021-08-18] MEDS: FOLIC ACID 1 MG TAB PO SCH (07:38)
[2021-08-18] MEDS: PANTOprazole 40 MG TAB PO SCH (07:39)
[2021-08-18] MEDS: allopurinoL 300 MG TAB PO SCH (07:39)
[2021-08-18] MEDS: THIAMINE HCL 100 MG TAB PO SCH (07:40)
[2021-08-18] MEDS: MULTIVITAMIN TAB PO SCH (07:40)
[2021-08-18] MEDS: SPIRONOLACTONE 25 MG TAB PO SCH (07:40)
--- NOTE | 2021-08-18 10:39 | Hospitalist Progress Note ---
Date of Service August 18, 2021 Assessment & Plan (1) Altered mental status: Plan: Uncertain if this is toxic d/t ongoing EtOH withdrawal or if pt has a component of EtOH induced dementia with superimposed delirium MRI of the brain with and without contrast performed 08/17, no acute findings noted Concern that current state may be permanent and may not return to his baseline mentation which was communicated to his Trial of Seroquel 25 mg at at bedtime to start 08/18 (2) Alcohol withdrawal: Plan: Continue AWSS, adjust and utilize Ativan for scale >8 As noted, is on Thiamine, Folic Acid, and Multivitamin (3) Urinary retention: Plan: Could be secondary to medications, especially hydroxyzine Will stop hydroxyzine in favor of trial of Seroquel (4) Seizure: Plan: Seizure subsequent to EtOH Withdrawal; Ethyl alcohol on admit 21.1, - CT-H without acute findings Pt reports last drink 1-2 days prior to admission, At least 8 beers daily usually Continue Keppra 750 mg p.o. twice daily, converted to IV due to swallowing issues but will transition back to oral Continue Lamictal 300 mg p.o. twice daily EEG with no evidence of occult seizure. Initial speech screen failed, NG placed for nutrition/meds. 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 Prior outpatient antibody tests negative HCV RNA Continue rifaximin, spironolactone 50 mg daily, Lasix 20 mg daily Continue thiamine supplementation US Liver without signs of hepatic masses. Cirrhosis appreciated. typically follows [place] [facility] EGD 08/11: Grade 1 varices in lower third of the esophagus ammonia 08/08 is normal, scl70 has a titre, lfts are stable will have follow up in outpt LFTs stable (10) Hypertension: Plan: Lopressor 50mg BID on board, will uptitrate to 75mg BID for tighter BP and HR control (11) Anemia: Plan: Apparently was pancytopenic at some point during this hospitalization which was felt to be secondary to EtOH mediated marrow suppression no longer an issue, platelets and wbc count have normalized H&H stable Plan: Continue PT/OT. Case management following for d/c planning. Per case management, [facility] will take him but won't accept today due to documented agitation overnight. Updated patient's by phone today. Will d/w attending. Admission and Anticipated Discharge Date Admission Date: August 04, 2021 Supervising Physician Co-Signing Physician Notes reviewed and agree christine Trejo PAC Subjective Patient seen on daily rounds this morning. Apparently, per RN, pt was agitated overnight around 2am and was bladder scanned for 421 ml. Overnight resident was notified. Order given to straight cath patient but no gomez inserted. Does not appear patient was medicated for behavior overnight. Currently, he is pleasantly confused. Believes he is in [place] and that it is 1980. Denies complaints. Review of Systems Review of Systems: All systems reviewed and are unremarkable except as noted in HPI and below. Reliability is questionable. Denies fever, chills, fatigue, headache, nasal congestion, sore throat, cough, chest pain, shortness of breath, palpitations, orthopnea, PND, abdominal pain, n/v/d, constipation, dysuria, hematuria, frequency, back pain, joint pain or swelling, easy bruising or bleeding, skin lesions or rashes. Physical Exam Physical Exam: GENERAL: 56 yo Well-developed, well-nourished WM. NAD. LUNGS: Clear to auscultation bilaterally. CARDIOVASCULAR: Regular rate and rhythm. No M/G/R. No JVD. ABDOMEN: Soft, non-tender and non-distended. BS normal x 4 quad. EXTREMITIES: No edema. Non-tender. Peripheral pulses +2/4. NEUROLOGIC: A&O x1. No focal neurological deficits. PSYCHIATRIC: Cooperative. Appropriate mood and affect. SKIN: Scattered ecchymosis and abrasions on all extremities. Results & Data Results & Data ([facility]) Vital Signs (Past 12 Hours) Vital Signs Temp Pulse Resp BP Pulse Ox 08/18/21 07:31 37 C 78 16 135/79 97 08/18/21 02:10 80 18 130/75 96 08/17/21 22:47 36.8 C 94 H 20 144/83 H 97 Laboratory Results None today Diagnostic Findings Brain MRI 08/17/21 11:55 MRI OF THE BRAIN COMBO CLINICAL HISTORY: Encephalopathy. Alcohol withdrawal. COMPARISON STUDY: CT of the brain dated 08/04/2021. MRI of the brain dated 10/08/2017. TECHNIQUE: MRI of the brain was performed utilizing various T1 and T2-weighted sequences in the axial, sagittal, and coronal planes. Contrast-enhanced sequences were acquired following the administration of 10 cc of Gadavist. Examination is degraded by motion artifact. FINDINGS: Brain parenchyma: Involutional change is advanced for age. Right frontal encephalomalacia is unchanged and consistent with a remote insult. There is no hemorrhage or mass effect. There is no restricted diffusion to suggest acute ischemia. No enhancing mass lesion is identified on the postcontrast images. Ayala-white matter differentiation is preserved. No extra-axial fluid collection is seen. The cerebellar tonsils are normal in configuration. Ventricles, sulci, and cisterns: Prominent secondary to involutional change. Pituitary and sella: Unremarkable. Intracranial vasculature: Normal flow voids are maintained at the skull base. Orbits: The bony orbits are grossly intact. Orbital contents are normal in appearance. Sinuses and mastoids: Clear. Calvarium: There is chronic deformity of the right frontal convexity. No destructive calvarial lesion is identified. Cervical cord: Partially visualized cervical spinal cord is normal in morphology and signal intensity. IMPRESSION: No acute intracranial abnormality. ACT 112: Negative or not required by law. Electronically signed by: Mike Jay M.D. 08/17/2021 9:49 PM PG Care Time/CCT Total # of Minutes Spent Total Time Spent with Patient: Total time spent is greater than 50% in coordination of care (as documented) at patient's floor/unit and/or counseling patient: Coding Level of Care Code 92793 Subseq Hosp Care Lvl 2 Diagnoses Seizure R56.9 Alcohol withdrawal F10.239 Portal hypertension K76.6 Peripheral neuropathy G62.9 Coronary artery disease I25.10 Alcoholic cirrhosis K70.30 Hypertension I10 Anemia D64.9 Alcoholic cerebellar degeneration F10.20; G31.2 Urinary retention R33.9 Altered mental status R41.82
[2021-08-18] MEDS ORDERED: LORazepam 2 MG/1 ML VIAL IV PRN (11:25)
[2021-08-18] MEDS: QUEtiapine FUMARATE 25 MG TABLET PO SCH (20:23)
[2021-08-18] MEDS: TAMSULOSIN HCL 0.4 MG CAP PO SCH (20:24)
[2021-08-19] MEDS: THIAMINE HCL 100 MG TAB PO SCH (08:03)
[2021-08-19] MEDS: rifAXIMin 550 MG TABLET PO SCH ×2 (08:04→20:12)
[2021-08-19] MEDS: FOLIC ACID 1 MG TAB PO SCH (08:04)
[2021-08-19] MEDS: SPIRONOLACTONE 25 MG TAB PO SCH (08:04)
[2021-08-19] MEDS: PANTOprazole 40 MG TAB PO SCH (08:05)
[2021-08-19] MEDS: MULTIVITAMIN TAB PO SCH (08:05)
[2021-08-19] MEDS: MAGNESIUM OXIDE 400 MG TAB PO SCH (08:05)
[2021-08-19] MEDS: METOPROLOL TARTRATE 25 MG TAB PO SCH ×2 (08:06→20:12)
[2021-08-19] MEDS: lamoTRIgine 100 MG TAB PO SCH ×2 (08:06→20:12)
[2021-08-19] MEDS: allopurinoL 300 MG TAB PO SCH (08:07)
[2021-08-19] MEDS: levETIRAcetam 250 MG TAB PO SCH ×2 (10:43→20:12)
--- NOTE | 2021-08-19 11:59 | Hospitalist Progress Note ---
Date of Service August 19, 2021 Assessment & Plan (1) Altered mental status: Plan: Uncertain if this is toxic d/t ongoing EtOH withdrawal or if pt has a component of EtOH induced dementia with superimposed delirium MRI of the brain with and without contrast performed 08/17, no acute findings noted Concern that current state may be permanent and may not return to his baseline mentation which was communicated to his Trial of Seroquel 25 mg at at bedtime to start 08/18 (2) Alcohol withdrawal: Plan: Continue AWSS, adjust and utilize Ativan for scale >8 As noted, is on Thiamine, Folic Acid, and Multivitamin (3) Urinary retention: Plan: Could be secondary to medications, especially hydroxyzine Will stop hydroxyzine in favor of trial of Seroquel Started flomax 0.4mg HS (4) Seizure: Plan: Seizure subsequent to EtOH Withdrawal; Ethyl alcohol on admit 21.1, - CT-H without acute findings Pt reports last drink 1-2 days prior to admission, At least 8 beers daily usually Continue Keppra 750 mg p.o. twice daily, converted to IV due to swallowing issues but will transition back to oral Continue Lamictal 300 mg p.o. twice daily EEG with no evidence of occult seizure. Initial speech screen failed, NG placed for nutrition/meds. 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 Prior outpatient antibody tests negative HCV RNA Continue rifaximin, spironolactone 50 mg daily, Lasix 20 mg daily Continue thiamine supplementation US Liver without signs of hepatic masses. Cirrhosis appreciated. typically follows [facility] EGD 08/11: Grade 1 varices in lower third of the esophagus ammonia 08/08 is normal, scl70 has a titre, lfts are stable will have follow up in outpt LFTs stable (10) Hypertension: Plan: Lopressor 50mg BID on board, will uptitrate to 75mg BID for tighter BP and HR control (11) Anemia: Plan: Apparently was pancytopenic at some point during this hospitalization which was felt to be secondary to EtOH mediated marrow suppression no longer an issue, platelets and wbc count have normalized H&H stable Plan: Continue PT/OT. Case management following for d/c planning. Per case management, [facility] has claimed they will take him but last few days has had multiple reasons why they "can't take him" that day. Today they won't accept due to gomez being inserted yesterday. Pt's updated by phone 08/18. Will d/w attending. Admission and Anticipated Discharge Date Admission Date: August 04, 2021 Supervising Physician Co-Signing Physician Notes reviewed and agree christine Trejo PAC, with persistence of AMS and EtOH abuse - trial of high dose thiamine Subjective Patient seen on daily rounds this morning. Pt had gomez inserted yesterday afternoon for urinary retention. Thus far, it remains in place. He was started o n Seroquel 25mg at HS last evening. He is currently sedated and not participating in any interview questions. Review of Systems Review of Systems: unobtainable as he is currently sedated Physical Exam Physical Exam: GENERAL: 56 yo Well-developed, well-nourished WM. NAD. LUNGS: Clear to auscultation bilaterally. CARDIOVASCULAR: Regular rate and rhythm. No M/G/R. No JVD. ABDOMEN: Soft, non-tender and non-distended. BS normal x 4 quad. : gomez in place, urine dark xi EXTREMITIES: No edema. Non-tender. Peripheral pulses +2/4. NEUROLOGIC: A&O x1. No focal neurological deficits. PSYCHIATRIC: Cooperative. Appropriate mood and affect. SKIN: Scattered ecchymosis and abrasions on all extremities. Results & Data Results & Data ([facility]) Vital Signs (Past 12 Hours) Vital Signs Temp Pulse Resp BP Pulse Ox 08/19/21 10:49 83 16 125/79 97 08/19/21 01:38 36.7 C 82 16 143/87 H 95 PG Care Time/CCT Total # of Minutes Spent Total Time Spent with Patient: Total time spent is greater than 50% in coordination of care (as documented) at patient's floor/unit and/or counseling patient: Coding Level of Care Code 22867 Subseq Hosp Care Lvl 2 Diagnoses Altered mental status R41.82 Alcohol withdrawal F10.239 Urinary retention R33.9 Seizure R56.9 Alcoholic cerebellar degeneration F10.20; G31.2 Portal hypertension K76.6 Peripheral neuropathy G62.9 Coronary artery disease I25.10 Alcoholic cirrhosis K70.30 Hypertension I10 Anemia D64.9
[2021-08-19] MEDS: THIAMINE HCL 500 MG in SODIUM CHLORIDE 0.9% 50 ML IV SCH ×2 (15:24→21:23)
[2021-08-19] MEDS: TAMSULOSIN HCL 0.4 MG CAP PO SCH (20:12)
[2021-08-19] MEDS: QUEtiapine FUMARATE 25 MG TABLET PO SCH (20:12)
[2021-08-20] MEDS: THIAMINE HCL 500 MG in SODIUM CHLORIDE 0.9% 50 ML IV SCH ×3 (05:12→22:48)
[2021-08-20] MEDS: SPIRONOLACTONE 25 MG TAB PO SCH (08:29)
[2021-08-20] MEDS: rifAXIMin 550 MG TABLET PO SCH ×2 (08:29→21:25)
[2021-08-20] MEDS: MULTIVITAMIN TAB PO SCH (08:30)
[2021-08-20] MEDS: PANTOprazole 40 MG TAB PO SCH (08:30)
[2021-08-20] MEDS: MAGNESIUM OXIDE 400 MG TAB PO SCH (08:30)
[2021-08-20] MEDS: METOPROLOL TARTRATE 25 MG TAB PO SCH ×2 (08:30→21:27)
[2021-08-20] MEDS: allopurinoL 300 MG TAB PO SCH (08:32)
[2021-08-20] MEDS: levETIRAcetam 250 MG TAB PO SCH ×2 (08:32→21:28)
[2021-08-20] MEDS: lamoTRIgine 100 MG TAB PO SCH ×2 (08:32→21:27)
[2021-08-20] MEDS: FOLIC ACID 1 MG TAB PO SCH (08:32)
--- NOTE | 2021-08-20 10:09 | Hospitalist Progress Note ---
Date of Service August 20, 2021 Assessment & Plan (1) Altered mental status: Plan: Uncertain if this is toxic d/t ongoing EtOH withdrawal or if pt has a component of EtOH induced dementia with superimposed delirium MRI of the brain with and without contrast performed 08/17, no acute findings noted Concern that current state may be permanent and may not return to his baseline mentation which was communicated to his Trial of Seroquel 25 mg at at bedtime to start 08/18 Given underlying EtOH abuse and ongoing encephalopathy, will trial high dose Thiamine for possible wernicke's (2) Alcohol withdrawal: Plan: Continue AWSS, adjust and utilize Ativan for scale >8 As noted, is on Thiamine, Folic Acid, and Multivitamin (3) Urinary retention: Plan: Could be secondary to medications, especially hydroxyzine Will stop hydroxyzine in favor of trial of Seroquel Started flomax 0.4mg HS Check urinalysis with reflex urine culture (4) Seizure: Plan: Seizure subsequent to EtOH Withdrawal; Ethyl alcohol on admit 21.1, - CT-H without acute findings Pt reports last drink 1-2 days prior to admission, At least 8 beers daily usually Continue Keppra 750 mg p.o. twice daily, converted to IV due to swallowing issues but will transition back to oral Continue Lamictal 300 mg p.o. twice daily EEG with no evidence of occult seizure. Initial speech screen failed, NG placed for nutrition/meds. 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 Prior outpatient antibody tests negative HCV RNA Continue rifaximin, spironolactone 50 mg daily, Lasix 20 mg daily Continue thiamine supplementation US Liver without signs of hepatic masses. Cirrhosis appreciated. typically follows [facility] EGD 5/21: Grade 1 varices in lower third of the esophagus ammonia 08/08 is normal, scl70 has a titre, lfts are stable will have follow up in outpt LFTs stable (10) Hypertension: Plan: Lopressor 50mg BID on board, uptitrated to 75mg BID for tighter BP and HR control (11) Anemia: Plan: Apparently was pancytopenic at some point during this hospitalization which was felt to be secondary to EtOH mediated marrow suppression no longer an issue, platelets and wbc count have normalized H&H stable Plan: Continue PT/OT. Case management following for d/c planning. Per case management, [facility] has claimed they will take him but last few days has had multiple reasons why they "can't" take him. Yesterday they refused to accept due to gomez being inserted. As noted UA to be collected today to exclude infection which could be contributing to his AMS. Trial of high dose Thiamine. Pt's updated by phone 08/18. Will d/w attending. Admission and Anticipated Discharge Date Admission Date: August 04, 2021 Subjective Patient seen on daily rounds this morning. Pt with gomez in place for urinary retention. He is currently sedated and not participating in any interview questions. Review of Systems Review of Systems: unobtainable as he is currently sedated Physical Exam Physical Exam: GENERAL: 56 yo Well-developed, well-nourished WM. NAD. LUNGS: Clear to auscultation bilaterally. CARDIOVASCULAR: Regular rate and rhythm. No M/G/R. No JVD. ABDOMEN: Soft, non-tender and non-distended. BS normal x 4 quad. : gomez in place, urine dark xi EXTREMITIES: No edema. Non-tender. Peripheral pulses +2/4. NEUROLOGIC: Sedated. Resting tremor noted. PSYCHIATRIC: Cooperative. Appropriate mood and affect. SKIN: Scattered ecchymosis and abrasions on all extremities. Results & Data Results & Data ([facility]) Vital Signs (Past 12 Hours) Vital Signs Temp Pulse Resp BP Pulse Ox 08/20/21 05:39 36.8 C 80 18 122/85 96 PG Care Time/CCT Total # of Minutes Spent Total Time Spent with Patient: Total time spent is greater than 50% in coordination of care (as documented) at patient's floor/unit and/or counseling patient: Coding Level of Care Code 55211 Subseq Hosp Care Lvl 2 Diagnoses Altered mental status R41.82 Alcohol withdrawal F10.239 Urinary retention R33.9 Seizure R56.9 Alcoholic cerebellar degeneration F10.20; G31.2 Portal hypertension K76.6 Peripheral neuropathy G62.9 Coronary artery disease I25.10 Alcoholic cirrhosis K70.30 Hypertension I10 Anemia D64.9
[2021-08-20 12:36] LABS: Appearance Urine Clear (Clear); Bacteria Urine Automated Negative (Negative); Bilirubin Urine 1+ (Negative); Blood Urine 3+ (Negative); Color Urine Dark Yellow; Glucose Urine UA Negative (Negative); Ketones Urine Negative (Negative); Leukocyte Esterase Urine 1+ (Negative); Nitrite Urine Negative (Negative); Protein Urine Negative (Negative); RBC Urine Automated >30 /hpf (0-4); Urobilinogen Urine Negative (Negative)
[2021-08-20] MEDS: TAMSULOSIN HCL 0.4 MG CAP PO SCH (21:28)
[2021-08-20] MEDS: QUEtiapine FUMARATE 25 MG TABLET PO SCH (21:29)
[2021-08-21] MEDS ORDERED: LORazepam 2 MG/1 ML VIAL IV STA (01:06)
[2021-08-21] MEDS: THIAMINE HCL 500 MG in SODIUM CHLORIDE 0.9% 50 ML IV SCH (06:00)
[2021-08-21] MEDS: levETIRAcetam 250 MG TAB PO SCH ×2 (07:55→20:28)
[2021-08-21] MEDS: METOPROLOL TARTRATE 25 MG TAB PO SCH ×3 (07:56→20:39)
[2021-08-21] MEDS: lamoTRIgine 100 MG TAB PO SCH ×2 (07:56→20:28)
[2021-08-21] MEDS: MULTIVITAMIN TAB PO SCH (07:56)
[2021-08-21] MEDS: SPIRONOLACTONE 25 MG TAB PO SCH (07:57)
[2021-08-21] MEDS: MAGNESIUM OXIDE 400 MG TAB PO SCH (07:57)
[2021-08-21] MEDS: rifAXIMin 550 MG TABLET PO SCH ×2 (07:57→20:28)
[2021-08-21] MEDS: PANTOprazole 40 MG TAB PO SCH (07:57)
[2021-08-21] MEDS: allopurinoL 300 MG TAB PO SCH ×2 (08:20→09:12)
[2021-08-21] MEDS: FOLIC ACID 1 MG TAB PO SCH ×2 (08:20→09:11)
--- NOTE | 2021-08-21 13:40 | Hospitalist Progress Note ---
Date of Service August 21, 2021 Assessment & Plan (1) Altered mental status: Plan: Uncertain if this is toxic d/t ongoing EtOH withdrawal or if pt has a component of EtOH induced dementia with superimposed delirium MRI of the brain with and without contrast performed 08/17, no acute findings noted Concern that current state may be permanent and may not return to his baseline mentation which was communicated to his Trial of Seroquel 25 mg at at bedtime to start 08/18 Given underlying EtOH abuse and ongoing encephalopathy, will trial high dose Thiamine for possible wernicke's (2) Alcohol withdrawal: Plan: Continue AWSS, adjust and utilize Ativan for scale >8 As noted, is on Thiamine, Folic Acid, and Multivitamin (3) Urinary retention: Plan: Could be secondary to medications, especially hydroxyzine Will stop hydroxyzine in favor of trial of Seroquel Started flomax 0.4mg HS UA is positive for 1+ LE and 5-10 WBC, urine cx prelim probably enterococcus c/w urinary tract infection which is likely cause of his urinary retention * Start on Unasyn 08/21, will await urine culture to finalize and tailor abx accordingly (4) Seizure: Plan: Seizure subsequent to EtOH Withdrawal; Ethyl alcohol on admit 21.1, - CT-H without acute findings Pt reports last drink 1-2 days prior to admission, At least 8 beers daily usually Continue Keppra 750 mg p.o. twice daily, converted to IV due to swallowing issues but will transition back to oral Continue Lamictal 300 mg p.o. twice daily EEG with no evidence of occult seizure. Initial speech screen failed, NG placed for nutrition/meds. 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 Prior outpatient antibody tests negative HCV RNA Continue rifaximin, spironolactone 50 mg daily, Lasix 20 mg daily Continue thiamine supplementation US Liver without signs of hepatic masses. Cirrhosis appreciated. typically follows [facility] EGD 08/11: Grade 1 varices in lower third of the esophagus ammonia 08/08 is normal, scl70 has a titre, lfts are stable will have follow up in outpt LFTs stable (10) Hypertension: Plan: Lopressor 50mg BID on board, uptitrated to 75mg BID for tighter BP and HR control (11) Anemia: Plan: Apparently was pancytopenic at some point during this hospitalization which was felt to be secondary to EtOH mediated marrow suppression no longer an issue, platelets and wbc count have normalized H&H stable Plan: Continue PT/OT. Case management following for d/c planning. Per case management, [facility] has claimed they will take him but last few days has had multiple re asons why they "can't" take him. Now stating that he has to be w/o any agitation/behavioral issues x 24 hours. Being trialed on high dose Thiamine. Starting abx for UTI. Pt's updated by phone 08/18. Will d/w attending. Admission and Anticipated Discharge Date Admission Date: August 04, 2021 Subjective Patient seen on daily rounds this morning. Pt laying in bed, doesn't participate in any questioning. Review of Systems Review of Systems: unobtainable as he is currently sedated Physical Exam Physical Exam: GENERAL: 56 yo Well-developed, well-nourished WM. NAD. LUNGS: Clear to auscultation bilaterally. CARDIOVASCULAR: Regular rate and rhythm. No M/G/R. No JVD. ABDOMEN: Soft, non-tender and non-distended. BS normal x 4 quad. : gomez in place, urine dark xi EXTREMITIES: No edema. Non-tender. Peripheral pulses +2/4. NEUROLOGIC: Sedated. Resting tremor noted. PSYCHIATRIC: not able to assess as he is sedated SKIN: Scattered ecchymosis and abrasions on all extremities. Results & Data Results & Data ([facility]) Vital Signs (Past 12 Hours) Vital Signs Temp Pulse Resp BP Pulse Ox 08/21/21 07:12 36.8 C 81 16 131/79 96 PG Care Time/CCT Total # of Minutes Spent Total Time Spent with Patient: Total time spent is greater than 50% in coordination of care (as documented) at patient's floor/unit and/or counseling patient: Coding Level of Care Code 47876 Subseq Hosp Care Lvl 2 Diagnoses Altered mental status R41.82 Alcohol withdrawal F10.239 Urinary retention R33.9 Seizure R56.9 Alcoholic cerebellar degeneration F10.20; G31.2 Portal hypertension K76.6 Peripheral neuropathy G62.9 Coronary artery disease I25.10 Alcoholic cirrhosis K70.30 Hypertension I10 Anemia D64.9
[2021-08-21] MEDS: AMPICILLIN/SULBACTAM SOD 1,500 MG in 0.9 % SODIUM CHLORIDE 100 ML IV SCH ×2 (14:12→20:27)
[2021-08-21] MEDS: TAMSULOSIN HCL 0.4 MG CAP PO SCH (20:27)
[2021-08-21] MEDS: QUEtiapine FUMARATE 25 MG TABLET PO SCH (20:28)
[2021-08-22] MEDS: AMPICILLIN/SULBACTAM SOD 1,500 MG in 0.9 % SODIUM CHLORIDE 100 ML IV SCH ×4 (01:11→19:53)
[2021-08-22] MEDS ORDERED: D5W AND 1/2NSS 1,000 ML IV SCH (08:30)
[2021-08-22] MEDS: METOPROLOL TARTRATE 25 MG TAB PO SCH ×2 (09:45→20:40)
[2021-08-22] MEDS: FOLIC ACID 1 MG TAB PO SCH (09:46)
[2021-08-22] MEDS: PANTOprazole 40 MG TAB PO SCH (09:46)
[2021-08-22] MEDS: SPIRONOLACTONE 25 MG TAB PO SCH (09:46)
[2021-08-22] MEDS: rifAXIMin 550 MG TABLET PO SCH ×2 (09:46→20:34)
[2021-08-22] MEDS: allopurinoL 300 MG TAB PO SCH (09:47)
[2021-08-22] MEDS: levETIRAcetam 250 MG TAB PO SCH ×2 (09:47→20:38)
[2021-08-22] MEDS: lamoTRIgine 100 MG TAB PO SCH ×2 (09:48→20:37)
[2021-08-22] MEDS: MULTIVITAMIN TAB PO SCH (09:49)
[2021-08-22] MEDS: MAGNESIUM OXIDE 400 MG TAB PO SCH (09:49)
[2021-08-22 10:08] LABS: Basophils # (auto) 0.03 K/uL (0-0.2); Basophils % (auto) 0.6 %; Eosinophils # (auto) 0.16 K/uL (0-0.5); Hematocrit (blood only) 38.2 % (42-52); Hemoglobin 12.9 g/dL (14.0-18.0); Immature Granulocytes # (auto) 0.01 K/uL (0.00-0.02); Immature Granulocytes % (auto) 0.2 %; Lymphocytes # (auto) 0.92 K/uL (1.2-3.4); Lymphocytes % (auto) 17.2 %; Mean Corpuscular Hemoglobin 35.6 pg (25-34); Mean Corpuscular Hgb Conc 33.8 g/dL (32-36); Mean Corpuscular Volume 105.5 fL (80-100); Mean Platelet Volume 10.5 fL (7.4-10.4); Monocytes # (auto) 0.41 K/uL (0.11-0.59); Monocytes % (auto) 7.6 %; Neutrophils # (auto) 3.83 K/uL (1.4-6.5); Neutrophils % (auto) 71.4 %; Platelet Count 145 K/uL (130-400); RDW Coefficient of Variation 13.4 % (11.5-14.5); RDW Standard Deviation 51.7 fL (36.4-46.3); Red Blood Count 3.62 M/uL (4.7-6.1); White Blood Count 5.36 K/uL (4.8-10.8)
[2021-08-22] MEDS: THIAMINE HCL 250 MG in SODIUM CHLORIDE 0.9% 50 ML IV SCH (10:09)
[2021-08-22 10:21] LABS: Albumin Globulin Ratio 0.7 (0.9-2); BUN Creatinine Ratio 14.9 (10-20); Bilirubin,Total 2.3 mg/dl (0.2-1.0); Creatinine Clr Calc Pharmacy 144.1 ml/min; Est GFR (African American) 122.8 ml/min; Est GFR (Non-African American) 105.9 ml/min; Globulin 4.3 gm/dl (2.5-4.0); Magnesium 1.8 mg/dl (1.7-2.4); Potassium 3.5 mmol/L (3.5-5.1); Total Protein 7.3 gm/dl (6.0-8.3)
--- NOTE | 2021-08-22 14:26 | Hospitalist Progress Note ---
Date of Service August 22, 2021 Assessment & Plan (1) Altered mental status: Plan: Uncertain if this is toxic d/t ongoing EtOH withdrawal or if pt has a component of EtOH induced dementia with superimposed delirium MRI of the brain with and without contrast performed 08/17, no acute findings noted Concern that current state may be permanent and may not return to his baseline mentation which was communicated to his Trial of Seroquel 25 mg at at bedtime to start 08/18 Given underlying EtOH abuse and ongoing encephalopathy, will trial high dose IV Thiamine for possible wernicke's with transition back to 100mg orally for maintenance on 08/27 Pt also could have a component of metabolic encephalopathy d/t UTI (Enterococcus faecalis) which could be contributing to his AMS as well (2) Alcohol withdrawal: Plan: Continue AWSS, adjust and utilize Ativan for scale >8 As noted, is on Thiamine, Folic Acid, and Multivitamin (3) UTI (urinary tract infection): Plan: Secondary to E. faecalis, sensitive to Ampicillin Continue Unasyn (4) Urinary retention: Plan: Could be secondary to medications, especially hydroxyzine + UTI Hydroxyzine discontinued Started flomax 0.4mg HS UA is positive for 1+ LE and 5-10 WBC Urine cx with E. faecalis -- continue Unasyn started 08/21 (5) Seizure: Plan: Seizure subsequent to EtOH Withdrawal; Ethyl alcohol on admit 21.1, - CT-H without acute findings Pt reports last drink 1-2 days prior to admission, At least 8 beers daily usually Continue Keppra 750 mg p.o. twice daily, converted to IV due to swallowing issues but will transition back to oral Continue Lamictal 300 mg p.o. twice daily EEG with no evidence of occult seizure. Initial speech screen failed, NG placed for nutrition/meds. 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, uses 2 canes for mobility Thiamine and acute alcohol withdrawal management as previously noted (7) Portal hypertension: Plan: Chronic EtOH use with associated alcohol-induced cirrhosis, portal hyp ertension, and esophageal varices (8) Peripheral neuropathy: Plan: Previously on Neurontin which has been stopped (9) Coronary artery disease: Plan: CAD and HTN was on ASA monotherapy, ASA monotherapy stopped due to thrombocytopenia, seizures, EtOH falls with concern for bleeding also on metoprolol tartrate which was uptitrated from 50mg to 75mg BID for better BP control (10) Alcoholic cirrhosis: Plan: Patient reported history of hepatitis C. Prior outpatient antibody tests nega tive HCV RNA Continue rifaximin, spironolactone 50 mg daily, Lasix 20 mg daily Continue thiamine supplementation US Liver without signs of hepatic masses. Cirrhosis appreciated. typically follows [facility] EGD 08/11: Grade 1 varices in lower third of the esophagus ammonia 08/08 is normal, scl70 has a titre, lfts are stable will have follow up in outpt LFTs stable (11) Anemia: Plan: Apparently was pancytopenic at some point during this hospitalization which was felt to be secondary to EtOH mediated marrow suppression no longer an issue, platelets and wbc count have normalized H&H stable Plan: Continue PT/OT. Case management following for d/c planning. Per case management, [facility] has claimed they will take him but last few days has had multiple reasons why they "can't" take him. Now stating that he has to be w/o any agita tion/behavioral issues x 24 hours, needs to be following commands, etc. Case management now looking into SNFs with rehab. updated via phone. Plan to be d/w Dr. Rodas. Admission and Anticipated Discharge Date Admission Date: August 04, 2021 Subjective Patient seen on daily rounds this morning. Resting. Continues not to follow commands or answer questions. Gomez remains in place. Now on treatment for UTI. Review of Systems Review of Systems: unobtainable as he is currently sedated Physical Exam Physical Exam: GENERAL: 56 yo Well-developed, well-nourished WM. NAD. LUNGS: Clear to auscultation bilaterally. CARDIOVASCULAR: Regular rate and rhythm. No M/G/R. No JVD. ABDOMEN: Soft, non-tender and non-distended. BS normal x 4 quad. : gomez in place, urine dark xi EXTREMITIES: No edema. Non-tender. Peripheral pulses +2/4. NEUROLOGIC: Sedated. At times is tremulous. Not able to follow commands. PSYCHIATRIC: confused SKIN: Scattered ecchymosis and abrasions on all extremities. Results & Data Results & Data ([facility]) Vital Signs (Past 12 Hours) Vital Signs Temp Pulse Resp BP BP Pulse Ox 08/22/21 09:43 77 129/72 08/22/21 07:48 36.7 C 79 16 113/69 97 Laboratory Results 08/22/21 09:42 08/22/21 09:42 PG Care Time/CCT Total # of Minutes Spent Total Time Spent with Patient: Total time spent is greater than 50% in coordination of care (as documented) at patient's floor/unit and/or counseling patient: Coding Level of Care Code 64705 Subseq Hosp Care Lvl 2 Diagnoses Altered mental status R41.82 Alcohol withdrawal F10.239 Urinary retention R33.9 Seizure R56.9 Alcoholic cerebellar degeneration F10.20; G31.2 Portal hypertension K76.6 Peripheral neuropathy G62.9 Coronary artery disease I25.10 Alcoholic cirrhosis K70.30 Anemia D64.9 UTI (urinary tract infection) N39.0
[2021-08-22] MEDS ORDERED: hydrALAZINE HCL 20 MG/ML VIAL IV PRN (17:06)
[2021-08-22] MEDS: QUEtiapine FUMARATE 25 MG TABLET PO SCH (20:35)
[2021-08-22] MEDS: TAMSULOSIN HCL 0.4 MG CAP PO SCH (20:39)
[2021-08-23] MEDS: AMPICILLIN/SULBACTAM SOD 1,500 MG in 0.9 % SODIUM CHLORIDE 100 ML IV SCH ×4 (01:47→19:34)
[2021-08-23] MEDS: THIAMINE HCL 250 MG in SODIUM CHLORIDE 0.9% 50 ML IV SCH (09:26)
[2021-08-23] MEDS: rifAXIMin 550 MG TABLET PO SCH ×2 (09:27→20:42)
[2021-08-23] MEDS: levETIRAcetam 250 MG TAB PO SCH ×2 (09:28→20:44)
[2021-08-23] MEDS: SPIRONOLACTONE 25 MG TAB PO SCH (09:28)
[2021-08-23] MEDS: lamoTRIgine 100 MG TAB PO SCH ×2 (09:28→20:39)
[2021-08-23] MEDS: allopurinoL 300 MG TAB PO SCH (09:28)
[2021-08-23] MEDS: PANTOprazole 40 MG TAB PO SCH (09:29)
[2021-08-23] MEDS: MAGNESIUM OXIDE 400 MG TAB PO SCH (09:29)
[2021-08-23] MEDS: FOLIC ACID 1 MG TAB PO SCH (09:29)
[2021-08-23] MEDS: MULTIVITAMIN TAB PO SCH (09:29)
[2021-08-23] MEDS: METOPROLOL TARTRATE 25 MG TAB PO SCH ×2 (09:29→20:41)
--- NOTE | 2021-08-23 10:39 | Hospitalist Progress Note ---
Date of Service August 23, 2021 Assessment & Plan (1) Encephalopathy: Plan: Uncertain if this is toxic d/t ongoing EtOH withdrawal or if pt has a component of EtOH induced dementia with superimposed delirium Baseline unclear at this time MRI of the brain with and without contrast performed 08/17, no acute findings noted Concern that current state may be permanent and may not return to his baseline mentation which was communicated to his Trial of Seroquel 25 mg at at bedtime started 08/18 Given underlying EtOH abuse and ongoing encephalopathy, will trial high dose IV Thiamine for possible wernicke's with transition back to 100mg orally for maintenance on 08/27 Pt also could have a component of metabolic encephalopathy d/t UTI (Enterococcus faecalis) which could be contributing to his AMS as well For completeness sake, add TSH, vitamin B12, vitamin D level, RPR, VBG, and ammonia level (2) Alcohol withdrawal: Plan: Completed Librium/Neurontin taper utilized Ativan upfront with AWSS monitorring Patient remains encephalopathic. Uncertain if this is secondary to prolonged withdrawal As noted, is on Thiamine, Folic Acid, and Multivitamin (3) UTI (urinary tract infection): Plan: Secondary to E. faecalis, sensitive to Ampicillin Continue Unasyn. Antibiotics to complete 08/26 (4) Urinary retention: Plan: Could be secondary to medications, especially hydroxyzine + UTI Hydroxyzine discontinued Started flomax 0.4mg HS UA is positive for 1+ LE and 5-10 WBC Urine cx with E. faecalis -- continue Unasyn started 08/21 Now with indwelling Gomez catheter. Keep in place with trial of void after completion of antibiotics for UTI. 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 twice daily Continue Lamictal 300 mg p.o. twice daily EEG with no evidence of occult seizure. Initial speech screen failed, NG placed for nutrition/meds. 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, uses 2 canes for mobility Thiamine and acute alcohol withdrawal management as previously noted Current baseline unclear at this point (7) Portal hypertension: Plan: Chronic EtOH use with associated alcohol-induced cirrhosis, portal hypertens ion, and esophageal varices On chronic Aldactone (8) Peripheral neuropathy: Plan: Previously on Neurontin which has been stopped (9) Coronary artery disease: Plan: CAD and HTN was on ASA monotherapy, ASA monotherapy stopped due to thrombocytopenia, seizures, EtOH falls with concern for bleeding also on metoprolol tartrate which was uptitrated from 50mg to 75mg BID for better BP control (10) Alcoholic cirrhosis: Plan: Patient reported history of hepatitis C. Prior outpatient antibody tests negative HCV RNA Continue rifaximin, spironolactone 50 mg daily, Lasix 20 mg daily Continue thiamine supplementation US Liver without signs of hepatic masses. Cirrhosis appreciated. typically follows [facility] EGD 08/11: Grade 1 varices in lower third of the esophagus ammonia 08/08 is normal. LFTs are slightly elevated but stable INR slightly elevated consistent with auto anticoagulation given his underlying cirrhosis (11) Anemia: Plan: Apparently was pancytopenic at some point during this hospitalization which was felt to be secondary to EtOH mediated marrow suppression no longer an issue, platelets and wbc count have normalized H&H stable Plan: Continue PT/OT. Rehab potential unknown at this point as he remains encephalopathic. Uncertain if this will continue to clear or if this is perhaps his baseline [facility]errals [facility] management following Plan to be d/w Dr. Rodas. Admission and Anticipated Discharge Date Admission Date: August 04, 2021 Subjective Patient seen on daily rounds today. In bed. Somnolent but arousable. Mostly nonverbal. Speech is mumbled. Per staff, this is how he has been. Usually pulls all of his clothes off and pulls at his gomez/IV. Needs to be fed as unable to independently feed himself. Nursing voices no c/c. Review of Systems Review of Systems: unobtainable Physical Exam Physical Exam: limited cooperation General: Resting comfortably in his hospital bed. He is somnolent but arousable. Limited cooperation. When attempting to pull the covers down to listen to his heart/lungs, he pushes my hands away and proceeds to pull the covers back up over his chest. NAD. HEENT: Head is AT/NC but exam limited Neck: Limited exam. No obvious JVD Cardiac: Limited exam. From what I can tell appears to be regular rate and rhythm Lungs: CTA without W/R/R Abdomen: Normoactive X4. Again, limited exam Extremities: No peripheral clubbing cyanosis or edema Neuro: Somnolent but arousable. Exam very limited due to lack of cooperation Skin: No obvious skin lesions or rashes Psych: Limited. Mumbled speech. Results & Data Results & Data ([facility]) Vital Signs (Past 12 Hours) Vital Signs Temp Pulse Resp BP Pulse Ox 08/23/21 09:28 35.4 C L 78 18 119/72 94 Laboratory Results Most recent lab data 08/22/21 09:42 08/22/21 09:42 PG Care Time/CCT Total # of Minutes Spent Total Time Spent with Patient: Total time spent is greater than 50% in coordination of care (as documented) at patient's floor/unit and/or counseling patient: Coding Level of Care Code 50079 Subseq Hosp Care Lvl 1 Diagnoses Alcohol withdrawal F10.239 UTI (urinary tract infection) N39.0 Urinary retention R33.9 Seizure R56.9 Alcoholic cerebellar degeneration F10.20; G31.2 Portal hypertension K76.6 Peripheral neuropathy G62.9 Coronary artery disease I25.10 Alcoholic cirrhosis K70.30 Anemia D64.9 Encephalopathy G93.40
[2021-08-23] MEDS ORDERED: HALOPERIDOL LACTATE 5 MG/ML 1 ML VIAL IM PRN (10:55)
[2021-08-23 11:15] LABS: Base Excess VBG 3.6 mEq/L; Oxygen Saturation VBG 75.5 %; pH VBG 7.46 (7.36-7.41)
[2021-08-23 11:46] LABS: Vitamin B12 > 1500 pg/ml (180-914)
[2021-08-23 11:50] LABS: Vitamin D, 25 Hydrox 49.8 ng/ml (30-100)
--- NOTE | 2021-08-23 12:12 | Psychiatric Consultation ---
Date of Consultation August 23, 2021 Impression / Recommendations Impression 56 yo man with history of TBI and chronic prefrontal lobe changes, severe alcohol use disorder and seizure disorder admitted medically for alcohol withdrawal and now with ongoing confusion even with completion of benzo taper. Diagnostically consistent with encephalopathy/delirium which seems to be varying between hyperactive and hypoactive delirium states. 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 Goal is maximizing non-pharmacologic strategies for behavioral management. However, given worsening agitation/aggression agree with use of a scheduled antipsychotic as risk/benefit profile now favors treatment. Note all antipsychotic medications carry black box warning for increased risk of all- cause mortality in setting of dementia. -consider 1-on-1 prn if needed for agitation -Increase seroquel to 25mg BID scheduled to address delirium, would check EKG QTc routinely but QTc per last EKG is stable and <500ms, can slightly reduce seizure threshold but he is on keppra and lamictal and has been stable in this regard -Will add melatonin 3mg qhs -Continue medical workup to rule out and treat any underlying causes contributin g to potential delirium, avoid or limit use of deliriogenic medications (benzodiazepines, opioids, anticholinergics) -Continue with delirium prevention measures: raising blinds during the day, closing at night, frequent re-orientation, contact with family/friends, explaining procedures/nursing care measures prior to physical contact, correct any hearing and visual impairments -For behavioral emergency: olanzapine 2.5 mg IM x 1 (DO NOT exceed 10mg per 24 hours, check EKG if IM dose required, NEVER co-administer with IM or IV benzo diazepines). (1) Encephalopathy: (2) Alcohol use disorder, severe, dependence: (3) UTI (urinary tract infection): (4) Seizure disorder: (5) Alcoholic cirrhosis: see above Psych History Identifying Data 56 yo man with history of TBI at age 16, alcohol use disorder severe with medical sequelae of cerebellar ataxia/neuropathy/esophageal varices/cirrhosis and seizure disorder on keppra and lamictal admitted medically for alcohol withdrawal and seizure in this context. Psychiatry consulted for delirium management. Chief Complaint garbled speech/nonsensical History of Present Illness 56 yo man with history of TBI at age 16, alcohol use disorder severe with medical sequelae of cerebellar ataxia/neuropathy/esophageal varices/cirrhosis and seizure disorder on keppra and lamictal admitted medically for alcohol withdrawal and seizure on 08/04/21. He had been drinking about 8 beers per day but had stopped drinking about 36 hours prior to admission. He is now outside the typical window for alcohol withdrawal having completed the AWSS and librium taper but continues to have nonsensical garbled speech, periods of agitation with nursing interventions and at times pulling out IV lines even with recent initiation of seroquel 25mg qhs started on 08/18. He is also being treated for a UTI and is on IV thiamine. Recent head imaging via head CT on 08/04/21 notable for cerebral atrophy and small vessel ischemia and atherosclerosis in internal carotids. Brain MRI on 08/17/21 notable for right frontal encephalomalacia and advanced changes for being middle-aged. Today he is lying in bed and awake but responds nonsensically with garbled speech when greeted by name and otherwise engages only briefly with garbled responses. Allergies Allergy/AdvReac Type Severity Reaction Status Date / Time No Known Allergies Allergy Verified 08/04/21 08:01 Home Medications Medication Instructions Recorded Confirmed Type magnesium oxide 400 mg (241.3 mg 400 mg PO BID #60 tab 03/04/20 08/04/21 Rx magnesium) tablet levetiracetam 250 mg tablet 750 mg PO BID #180 tab 06/21/20 08/04/21 Rx folic acid 1 mg tablet 1 mg PO DAILY #90 tab 01/30/21 08/04/21 Rx lansoprazole 30 mg capsule,delayed 30 mg PO DAILY 01/30/21 08/04/21 History release (Prevacid) rifaximin 550 mg tablet (Xifaxan) 550 mg PO BID #60 tab 01/30/21 08/04/21 Rx thiamine HCl (vitamin B1) 100 mg 100 mg PO DAILY #90 tab 01/30/21 08/04/21 Rx tablet (Vitamin B-1) allopurinol 300 mg tablet 300 mg PO DAILY #90 tab 02/23/21 08/04/21 Rx metoprolol succinate 100 mg 100 mg PO DAILY #90 tab 02/23/21 08/04/21 Rx tablet,extended release 24 hr furosemide 20 mg tablet (Lasix) 20 mg PO DAILY #30 tab 04/09/21 08/04/21 Rx spironolactone 50 mg tablet 50 mg PO DAILY #90 tab 04/16/21 08/04/21 Rx lamotrigine 200 mg tablet 300 mg PO BID 08/04/21 08/04/21 History (Lamictal) Substance Abuse History Extensive and chronic alcohol use disorder Personal History Living Arrangements: Home (with his ) Beliefs That Will Affect Care: None Patient History Medical History Alcoholic cerebellar degeneration Alcoholic cirrhosis Anemia Chronic venous insufficiency Coronary artery disease Esophageal varices Gout History of kidney stones Hypertension Left knee DJD Osteoarthritis of right knee Peripheral neuropathy Portal hypertension Right knee DJD Seizure disorder (01/04/13) Situational depression Tremor Surgical History History of anesthesia reaction "was out strong enough for scope to go down, still had gag reflux" History of colonoscopy History of cystoscopy History of esophagogastroduodenoscopy (EGD) History of fracture of skull REPAIR SKULL-NO PLATE History of umbilical hernia repair History of varicose vein ligation and stripping BILAT Family History Father Family history of diabetes mellitus Cardiac disorder Mother Family history of diabetes mellitus Gout Sister Family history of diabetes mellitus Other No family history of adverse response to anesthesia Social History Smoking Status: Former smoker Tobacco Type: Cigarettes Second Hand Exposure: Yes; Hx Alcohol Use: Yes Alcohol type: beer Hx Substance Use: No Preferred Language: Bengali Communication Ability: Effective Salon Stylist Required: No Beliefs That Will Affect Care: None Current Living Situation: Spouse Other Information That Helps Us Care for You: No Feels Safe at Home: Yes Safety Concerns: Feels Safe At This Time Assistive Devices: Cane and Walker Physical Exam Psychiatric: Orientation: alert and oriented to person; + not oriented to place and + not oriented to time Apperance: appropriately dressed and appropriately groomed Eye Contact: + poor eye contact Motor Behavior: no abnormal motor movements Speech: + abnormal rate/rhythm/volume of speech (garbled) Affect: + constricted affect Thought Process: + incoherent thought process Hallucinations: no auditory hallucinations (does not appear to be responding but diff to assess) and no visual hallucinations Cognition: + recent memory not intact, + remote memory not intact, + attention not intact and + language not intact Insight: + severely impaired insight Judgement: + severely impaired judgement Vital Signs (Past 24 Hours): Last Vital Signs Temp 35.4 C L 08/23/21 09:28 Pulse 78 08/23/21 09:28 Resp 18 08/23/21 09:28 BP 119/72 08/23/21 09:28 Pulse Ox 94 08/23/21 09:28 Review of Systems Unobtainable due to cognitive status Results & Data (PSY) Laboratory Results labs reviewed-nml Na+, nml ammonia, elevated B12, nml Vit D, nml TSH Diagnostic Findings EKG QTc 462 ms on 08/07/21 Medications Administered Allopurinol (Allopurinol 300 Mg Tab) 300 mg PO DAILY MISTY Stop: 09/04/21 08:59 Last Admin: 08/23/21 09:28 Dose: 300 mg Documented by: [id number] Admin: 08/22/21 09:47 Dose: 300 mg Documented by: [id number] Admin: 08/21/21 09:12 Dose: Not Given Documented by: [id number] Admin: 08/20/21 08:32 Dose: Not Given Documented by: [id number] Admin: 08/19/21 08:07 Dose: 300 mg Documented by: [id number] Admin: 08/18/21 07:39 Dose: 300 mg Documented by: [id number] Admin: 08/17/21 08:02 Dose: 300 mg Documented by: [id number] Admin: 08/16/21 09:53 Dose: 300 mg Documented by: [id number] Admin: 08/15/21 08:16 Dose: 300 mg Documented by: [id number] Admin: 08/14/21 10:07 Dose: 300 mg Documented by: [id number] Admin: 08/13/21 08:17 Dose: 300 mg Documented by: [id number] Admin: 08/12/21 08:29 Dose: 300 mg Documented by: [id number] Admin: 08/11/21 08:45 Dose: 300 mg Documented by: [id number] Admin: 08/10/21 08:59 Dose: 300 mg Documented by: [id number] Admin: 08/09/21 08:13 Dose: 300 mg Documented by: [id number] Admin: 08/08/21 08:14 Dose: 300 mg Documented by: [id number] Admin: 08/07/21 09:25 Dose: Not Given Documented by: [id number] Admin: 08/06/21 10:32 Dose: Not Given Documented by: [id number] Admin: 08/05/21 07:59 Dose: 300 mg Documented by: [id number] Folic Acid (Folic Acid 1 Mg Tab) 1 mg PO DAILY MISTY Stop: 09/04/21 08:59 Last Admin: 08/23/21 09:29 Dose: 1 mg Documented by: [id number] Admin: 08/22/21 09:46 Dose: 1 mg Documented by: [id number] Admin: 08/21/21 09:11 Dose: Not Given Documented by: [id number] Admin: 08/20/21 08:32 Dose: Not Given Documented by: [id number] Admin: 08/19/21 08:04 Dose: 1 mg Documented by: [id number] Admin: 08/18/21 07:38 Dose: 1 mg Documented by: [id number] Admin: 08/17/21 08:02 Dose: 1 mg Documented by: [id number] Admin: 08/16/21 09:53 Dose: 1 mg Documented by: [id number] Admin: 08/15/21 08:15 Dose: 1 mg Documented by: [id number] Admin: 08/14/21 10:07 Dose: 1 mg Documented by: [id number] Admin: 08/13/21 08:17 Dose: 1 mg Documented by: [id number] Admin: 08/12/21 08:29 Dose: 1 mg Documented by: [id number] Admin: 08/11/21 08:45 Dose: 1 mg Documented by: [id number] Admin: 08/10/21 08:59 Dose: 1 mg Documented by: [id number] Admin: 08/09/21 08:13 Dose: 1 mg Documented by: [id number] Admin: 08/08/21 08:15 Dose: 1 mg Documented by: [id number] Admin: 08/07/21 09:25 Dose: Not Given Documented by: [id number] Admin: 08/06/21 10:32 Dose: Not Given Documented by: [id number] Admin: 08/05/21 07:59 Dose: 1 mg Documented by: [id number] Thiamine HCl 250 mg/ Sodium (Chloride) 52.5 mls @ 210 mls/hr IV DAILY MISTY Stop: 08/26/21 12:00 Last Infusion: 08/23/21 10:21 Dose: 0 mls/hr Documented by: [id number] Admin: 08/23/21 09:26 Dose: 210 mls/hr Documented by: [id number] Infusion: 08/22/21 10:46 Dose: 0 mls/hr Documented by: [id number] Admin: 08/22/21 10:09 Dose: 210 mls/hr Documented by: [id number] Ampicillin Sodium/Sulbactam Sodium 1,500 mg/ Sodium Chloride 104 mls @ 200 mls/hr IV Q6H MISTY; Protocol Stop: 08/26/21 13:29 Last Infusion: 08/23/21 11:31 Dose: 0 mls/hr Documented by: [id number] Admin: 08/23/21 10:30 Dose: 200 mls/hr Documented by: [id number] Infusion: 08/23/21 02:25 Dose: 0 mls/hr Documented by: [id number] Admin: 08/23/21 01:47 Dose: 200 mls/hr Documented by: [id number] Infusion: 08/22/21 20:27 Dose: 0 mls/hr Documented by: [id number] Admin: 08/22/21 19:53 Dose: 200 mls/hr Documented by: [id number] Infusion: 08/22/21 14:05 Dose: 0 mls/hr Documented by: [id number] Admin: 08/22/21 13:23 Dose: 200 mls/hr Documented by: [id number] Infusion: 08/22/21 08:55 Dose: 0 mls/hr Documented by: [id number] Admin: 08/22/21 07:35 Dose: 200 mls/hr Documented by: [id number] Infusion: 08/22/21 01:47 Dose: 0 mls/hr Documented by: [id number] Admin: 08/22/21 01:11 Dose: 200 mls/hr Documented by: [id number] Infusion: 08/21/21 20:59 Dose: 0 mls/hr Documented by: [id number] Admin: 08/21/21 20:27 Dose: 200 mls/hr Documented by: [id number] Infusion: 08/21/21 14:59 Dose: 0 mls/hr Documented by: [id number] Admin: 08/21/21 14:12 Dose: 200 mls/hr Documented by: [id number] Lamotrigine (Lamotrigine 100 Mg Tab) 300 mg PO BID MISTY Stop: 09/03/21 20:59 Last Admin: 08/23/21 09:28 Dose: 300 mg Documented by: [id number] Admin: 08/22/21 20:37 Dose: 300 mg Documented by: [id number] Admin: 08/22/21 09:48 Dose: 300 mg Documented by: [id number] Admin: 08/21/21 20:28 Dose: 300 mg Documented by: [id number] Admin: 08/21/21 07:56 Dose: 300 mg Documented by: [id number] Admin: 08/20/21 21:27 Dose: 300 mg Documented by: [id number] Admin: 08/20/21 08:32 Dose: Not Given Documented by: [id number] Admin: 08/19/21 20:12 Dose: 300 mg Documented by: [id number] Admin: 08/19/21 08:06 Dose: 300 mg Documented by: [id number] Admin: 08/18/21 20:22 Dose: 300 mg Documented by: [id number] Admin: 08/18/21 07:29 Dose: 300 mg Documented by: [id number] Admin: 08/17/21 21:54 Dose: 300 mg Documented by: [id number] Admin: 08/17/21 08:02 Dose: 300 mg Documented by: [id number] Admin: 08/16/21 19:57 Dose: 300 mg Documented by: [id number] Admin: 08/16/21 09:53 Dose: 300 mg Documented by: [id number] Admin: 08/15/21 20:29 Dose: 300 mg Documented by: [id number] Admin: 08/15/21 08:15 Dose: 300 mg Documented by: [id number] Admin: 08/14/21 20:48 Dose: 300 mg Documented by: [id number] Admin: 08/14/21 10:05 Dose: 300 mg Documented by: [id number] Admin: 08/13/21 20:41 Dose: 300 mg Documented by: [id number] Admin: 08/13/21 08:17 Dose: 300 mg Documented by: [id number] Admin: 08/12/21 20:14 Dose: 300 mg Documented by: [id number] Admin: 08/12/21 08:28 Dose: 300 mg Documented by: [id number] Admin: 08/11/21 20:45 Dose: 300 mg Documented by: [id number] Admin: 08/11/21 08:45 Dose: 300 mg Documented by: [id number] Admin: 08/10/21 22:01 Dose: 300 mg Documented by: [id number] Admin: 08/10/21 09:01 Dose: 300 mg Documented by: [id number] Admin: 08/09/21 20:46 Dose: 300 mg Documented by: [id number] Admin: 08/09/21 08:13 Dose: 300 mg Documented by: [id number] Admin: 08/08/21 21:42 Dose: 300 mg Documented by: [id number] Admin: 08/08/21 08:15 Dose: 300 mg Documented by: [id number] Admin: 08/07/21 21:08 Dose: 300 mg Documented by: [id number] Admin: 08/07/21 09:25 Dose: Not Given Documented by: [id number] Admin: 08/06/21 20:12 Dose: Not Given Documented by: [id number] Admin: 08/06/21 10:32 Dose: Not Given Documented by: [id number] Admin: 08/05/21 21:49 Dose: 300 mg Documented by: [id number] Admin: 08/05/21 07:58 Dose: 300 mg Documented by: [id number] Admin: 08/04/21 19:43 Dose: 300 mg Documented by: [id number] Levetiracetam (Levetiracetam 250 Mg Tab) 750 mg PO BID MISTY Stop: 09/16/21 20:59 Last Admin: 08/23/21 09:28 Dose: 750 mg Documented by: [id number] Admin: 08/22/21 20:38 Dose: 750 mg Documented by: [id number] Admin: 08/22/21 09:47 Dose: 750 mg Documented by: [id number] Admin: 08/21/21 20:28 Dose: 750 mg Documented by: [id number] Admin: 08/21/21 07:55 Dose: 750 mg Documented by: [id number] Admin: 08/20/21 21:28 Dose: 750 mg Documented by: [id number] Admin: 08/20/21 08:32 Dose: Not Given Documented by: [id number] Admin: 08/19/21 20:12 Dose: 750 mg Documented by: [id number] Admin: 08/19/21 10:43 Dose: 750 mg Documented by: [id number] Admin: 08/18/21 20:19 Dose: 750 mg Documented by: [id number] Admin: 08/18/21 07:28 Dose: 750 mg Documented by: [id number] Admin: 08/17/21 21:53 Dose: 750 mg Documented by: [id number] Magnesium Oxide (Magnesium Oxide 400 Mg Tab) 400 mg PO QAM MISTY Stop: 09/03/21 10:44 Last Admin: 08/23/21 09:29 Dose: 400 mg Documented by: [id number] Admin: 08/22/21 09:49 Dose: 400 mg Documented by: [id number] Admin: 08/21/21 07:57 Dose: 400 mg Documented by: [id number] Admin: 08/20/21 08:30 Dose: Not Given Documented by: [id number] Admin: 08/19/21 08:05 Dose: 400 mg Documented by: [id number] Admin: 08/18/21 07:29 Dose: 400 mg Documented by: [id number] Admin: 08/17/21 08:02 Dose: 400 mg Documented by: [id number] Admin: 08/16/21 09:53 Dose: 400 mg Documented by: [id number] Admin: 08/15/21 08:15 Dose: 400 mg Documented by: [id number] Admin: 08/14/21 10:07 Dose: 400 mg Documented by: [id number] Admin: 08/13/21 08:16 Dose: 400 mg Documented by: [id number] Admin: 08/12/21 08:29 Dose: 400 mg Documented by: [id number] Admin: 08/11/21 08:45 Dose: 400 mg Documented by: [id number] Admin: 08/10/21 09:59 Dose: 400 mg Documented by: [id number] Admin: 08/09/21 11:23 Dose: 400 mg Documented by: [id number] Admin: 08/08/21 08:30 Dose: 400 mg Documented by: [id number] Admin: 08/07/21 09:25 Dose: Not Given Documented by: [id number] Admin: 08/06/21 10:33 Dose: Not Given Documented by: [id number] Admin: 08/05/21 07:58 Dose: 400 mg Documented by: [id number] Admin: 08/04/21 11:22 Dose: 400 mg Documented by: [id number] Metoprolol Tartrate (Metoprolol Tartrate 25 Mg Tab) 75 mg PO BID MISTY Stop: 09/15/21 20:59 Last Admin: 08/23/21 09:29 Dose: 75 mg Documented by: [id number] Admin: 08/22/21 20:40 Dose: 75 mg Documented by: [id number] Admin: 08/22/21 09:45 Dose: 75 mg Documented by: [id number] Admin: 08/21/21 20:39 Dose: 75 mg Documented by: [id number] Admin: 08/21/21 07:56 Dose: 75 mg Documented by: [id number] Admin: 08/20/21 21:27 Dose: 75 mg Documented by: [id number] Admin: 08/20/21 08:30 Dose: Not Given Documented by: [id number] Admin: 08/19/21 20:12 Dose: 75 mg Documented by: [id number] Admin: 08/19/21 08:06 Dose: 75 mg Documented by: [id number] Admin: 08/18/21 20:21 Dose: 75 mg Documented by: [id number] Admin: 08/18/21 07:37 Dose: 75 mg Documented by: [id number] Admin: 08/17/21 21:54 Dose: 75 mg Documented by: [id number] Admin: 08/17/21 08:02 Dose: 75 mg Documented by: [id number] Admin: 08/16/21 19:58 Dose: 75 mg Documented by: [id number] Multivitamins (Multivitamin Tab) 1 tab PO QAM MISTY Stop: 09/06/21 10:59 Last Admin: 08/23/21 09:29 Dose: 1 tab Documented by: [id number] Admin: 08/22/21 09:49 Dose: 1 tab Documented by: [id number] Admin: 08/21/21 07:56 Dose: 1 tab Documented by: [id number] Admin: 08/20/21 08:30 Dose: Not Given Documented by: [id number] Admin: 08/19/21 08:05 Dose: 1 tab Documented by: [id number] Admin: 08/18/21 07:40 Dose: 1 tab Documented by: [id number] Admin: 08/17/21 08:03 Dose: 1 tab Documented by: [id number] Admin: 08/16/21 09:53 Dose: 1 tab Documented by: [id number] Admin: 08/15/21 08:15 Dose: 1 tab Documented by: [id number] Admin: 08/14/21 10:07 Dose: 1 tab Documented by: [id number] Admin: 08/13/21 08:18 Dose: 1 tab Documented by: [id number] Admin: 08/12/21 08:28 Dose: 1 tab Documented by: [id number] Admin: 08/11/21 08:46 Dose: 1 tab Documented by: [id number] Admin: 08/10/21 08:59 Dose: 1 tab Documented by: [id number] Admin: 08/09/21 08:13 Dose: 1 tab Documented by: [id number] Admin: 08/08/21 08:16 Dose: 1 tab Documented by: [id number] Admin: 08/07/21 12:50 Dose: 1 tab Documented by: [id number] Pantoprazole Sodium (Pantoprazole 40 Mg Tab) 40 mg PO DAILY MISTY Stop: 09/04/21 08:59 Last Admin: 08/23/21 09:29 Dose: 40 mg Documented by: [id number] Admin: 08/22/21 09:46 Dose: 40 mg Documented by: [id number] Admin: 08/21/21 07:57 Dose: 40 mg Documented by: [id number] Admin: 08/20/21 08:30 Dose: Not Given Documented by: [id number] Admin: 08/19/21 08:05 Dose: 40 mg Documented by: [id number] Admin: 08/18/21 07:39 Dose: 40 mg Documented by: [id number] Admin: 08/17/21 08:03 Dose: 40 mg Documented by: [id number] Admin: 08/16/21 09:53 Dose: 40 mg Documented by: [id number] Admin: 08/15/21 08:15 Dose: 40 mg Documented by: [id number] Admin: 08/14/21 10:07 Dose: 40 mg Documented by: [id number] Admin: 08/13/21 08:16 Dose: 40 mg Documented by: [id number] Admin: 08/12/21 08:28 Dose: 40 mg Documented by: [id number] Admin: 08/11/21 08:45 Dose: 40 mg Documented by: [id number] Admin: 08/10/21 09:59 Dose: 40 mg Documented by: [id number] Admin: 08/09/21 08:13 Dose: 40 mg Documented by: [id number] Admin: 08/08/21 08:15 Dose: 40 mg Documented by: [id number] Admin: 08/07/21 09:25 Dose: Not Given Documented by: [id number] Admin: 08/06/21 10:33 Dose: Not Given Documented by: [id number] Admin: 08/05/21 08:00 Dose: 40 mg Documented by: [id number] Quetiapine Fumarate (Quetiapine Fumarate 25 Mg Tablet) 25 mg PO HS MISTY Stop: 09/17/21 20:59 Last Admin: 08/22/21 20:35 Dose: 25 mg Documented by: [id number] Admin: 08/21/21 20:28 Dose: 25 mg Documented by: [id number] Admin: 08/20/21 21:29 Dose: 25 mg Documented by: [id number] Admin: 08/19/21 20:12 Dose: 25 mg Documented by: [id number] Admin: 08/18/21 20:23 Dose: 25 mg Documented by: [id number] Rifaximin (Rifaximin 550 Mg Tablet) 550 mg PO BID MISTY Stop: 09/03/21 20:59 Last Admin: 08/23/21 09:27 Dose: 550 mg Documented by: [id number] Admin: 08/22/21 20:34 Dose: 550 mg Documented by: [id number] Admin: 08/22/21 09:46 Dose: 550 mg Documented by: [id number] Admin: 08/21/21 20:28 Dose: 550 mg Documented by: [id number] Admin: 08/21/21 07:57 Dose: 550 mg Documented by: [id number] Admin: 08/20/21 21:25 Dose: 550 mg Documented by: [id number] Admin: 08/20/21 08:29 Dose: Not Given Documented by: [id number] Admin: 08/19/21 20:12 Dose: 550 mg Documented by: [id number] Admin: 08/19/21 08:04 Dose: 550 mg Documented by: [id number] Admin: 08/18/21 20:19 Dose: 550 mg Documented by: [id number] Admin: 08/18/21 07:38 Dose: 550 mg Documented by: [id number] Admin: 08/17/21 21:53 Dose: 550 mg Documented by: [id number] Admin: 08/17/21 08:03 Dose: 550 mg Documented by: [id number] Admin: 08/16/21 19:58 Dose: 550 mg Documented by: [id number] Admin: 08/16/21 09:53 Dose: 550 mg Documented by: [id number] Admin: 08/15/21 20:30 Dose: 550 mg Documented by: [id number] Admin: 08/15/21 08:15 Dose: 550 mg Documented by: [id number] Admin: 08/14/21 20:48 Dose: 550 mg Documented by: [id number] Admin: 08/14/21 10:07 Dose: 550 mg Documented by: [id number] Admin: 08/13/21 20:42 Dose: 550 mg Documented by: [id number] Admin: 08/13/21 08:16 Dose: 550 mg Documented by: [id number] Admin: 08/12/21 20:14 Dose: 550 mg Documented by: [id number] Admin: 08/12/21 08:28 Dose: 550 mg Documented by: [id number] Admin: 08/11/21 20:45 Dose: 550 mg Documented by: [id number] Admin: 08/11/21 08:48 Dose: 550 mg Documented by: [id number] Admin: 08/10/21 22:01 Dose: 550 mg Documented by: [id number] Admin: 08/10/21 09:00 Dose: 550 mg Documented by: [id number] Admin: 08/09/21 20:46 Dose: 550 mg Documented by: [id number] Admin: 08/09/21 08:13 Dose: 550 mg Documented by: [id number] Admin: 08/08/21 21:43 Dose: 550 mg Documented by: [id number] Admin: 08/08/21 08:14 Dose: 550 mg Documented by: [id number] Admin: 08/07/21 21:08 Dose: 550 mg Documented by: [id number] Admin: 08/07/21 09:25 Dose: Not Given Documented by: [id number] Admin: 08/06/21 20:12 Dose: Not Given Documented by: [id number] Admin: 08/06/21 10:34 Dose: Not Given Documented by: [id number] Admin: 08/05/21 21:49 Dose: 550 mg Documented by: [id number] Admin: 08/05/21 07:58 Dose: 550 mg Documented by: [id number] Admin: 08/04/21 19:44 Dose: 550 mg Documented by: [id number] Spironolactone (Spironolactone 25 Mg Tab) 50 mg PO DAILY MISTY Stop: 09/04/21 08:59 Last Admin: 08/23/21 09:28 Dose: 50 mg Documented by: [id number] Admin: 08/22/21 09:46 Dose: 50 mg Documented by: [id number] Admin: 08/21/21 07:57 Dose: 50 mg Documented by: [id number] Admin: 08/20/21 08:29 Dose: Not Given Documented by: [id number] Admin: 08/19/21 08:04 Dose: 50 mg Documented by: [id number] Admin: 08/18/21 07:40 Dose: 50 mg Documented by: [id number] Admin: 08/17/21 08:02 Dose: 50 mg Documented by: [id number] Admin: 08/16/21 09:53 Dose: 50 mg Documented by: [id number] Admin: 08/15/21 08:15 Dose: 50 mg Documented by: [id number] Admin: 08/14/21 10:05 Dose: 50 mg Documented by: [id number] Admin: 08/13/21 08:17 Dose: 50 mg Documented by: [id number] Admin: 08/12/21 08:29 Dose: 50 mg Documented by: [id number] Admin: 08/11/21 08:46 Dose: 50 mg Documented by: [id number] Admin: 08/10/21 09:00 Dose: 50 mg Documented by: [id number] Admin: 08/09/21 08:13 Dose: 50 mg Documented by: [id number] Admin: 08/08/21 08:15 Dose: 50 mg Documented by: [id number] Admin: 08/07/21 09:25 Dose: Not Given Documented by: [id number] Admin: 08/06/21 10:34 Dose: Not Given Documented by: [id number] Admin: 08/05/21 07:58 Dose: 50 mg Documented by: [id number] Tamsulosin HCl (Tamsulosin Hcl 0.4 Mg Cap) 0.4 mg PO HS MISTY Stop: 09/17/21 20:59 Last Admin: 08/22/21 20:39 Dose: 0.4 mg Documented by: [id number] Admin: 08/21/21 20:27 Dose: 0.4 mg Documented by: [id number] Admin: 08/20/21 21:28 Dose: 0.4 mg Documented by: [id number] Admin: 08/19/21 20:12 Dose: 0.4 mg Documented by: [id number] Admin: 08/18/21 20:24 Dose: 0.4 mg Documented by: [id number] Coding Level of Care Code 53267 Inpt Consult Level 3 Diagnoses Encephalopathy G93.40 UTI (urinary tract infection) N39.0 Seizure disorder G40.909 Alcoholic cirrhosis K70.30 Alcohol use disorder, severe, dependence F10.20
[2021-08-23] MEDS: QUEtiapine FUMARATE 25 MG TABLET PO SCH ×2 (14:29→20:39)
[2021-08-23] MEDS: TAMSULOSIN HCL 0.4 MG CAP PO SCH (20:37)
[2021-08-23] MEDS: MELATONIN 3 MG TAB PO SCH (20:37)
[2021-08-24] MEDS: AMPICILLIN/SULBACTAM SOD 1,500 MG in 0.9 % SODIUM CHLORIDE 100 ML IV SCH ×4 (00:34→19:40)
[2021-08-24] MEDS: QUEtiapine FUMARATE 25 MG TABLET PO SCH ×2 (08:34→19:39)
[2021-08-24] MEDS: SPIRONOLACTONE 25 MG TAB PO SCH (08:35)
[2021-08-24] MEDS: METOPROLOL TARTRATE 25 MG TAB PO SCH ×2 (08:35→19:38)
[2021-08-24] MEDS: MULTIVITAMIN TAB PO SCH (08:35)
[2021-08-24] MEDS: MAGNESIUM OXIDE 400 MG TAB PO SCH (08:35)
[2021-08-24] MEDS: allopurinoL 300 MG TAB PO SCH (08:35)
[2021-08-24] MEDS: FOLIC ACID 1 MG TAB PO SCH (08:35)
[2021-08-24] MEDS: rifAXIMin 550 MG TABLET PO SCH ×2 (08:35→19:39)
[2021-08-24] MEDS: PANTOprazole 40 MG TAB PO SCH (08:35)
[2021-08-24] MEDS: lamoTRIgine 100 MG TAB PO SCH ×2 (08:35→19:37)
[2021-08-24] MEDS: levETIRAcetam 250 MG TAB PO SCH ×2 (08:35→19:38)
[2021-08-24] MEDS: THIAMINE HCL 250 MG in SODIUM CHLORIDE 0.9% 50 ML IV SCH (08:45)
--- NOTE | 2021-08-24 13:15 | Psychiatric Progress Note ---
Date of Service August 24, 2021 Impression / Recommendations Impression 56 yo man with history of TBI and chronic prefrontal lobe changes, severe alcohol use disorder and seizure disorder admitted medically for alcohol withdrawal and now with ongoing confusion even with completion of benzo taper. Diagnostically consistent with encephalopathy/delirium which seems to be varying between hyperactive and hypoactive delirium states. 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 08/24/21: Ongoing delirium and periods of agitation. Continue with BID seroquel, if agitation persists may add afternoon dose as this tends to be more difficult time of day. (1) Encephalopathy: (2) Alcohol use disorder, severe, dependence: (3) UTI (urinary tract infection): (4) Seizure disorder: (5) Alcoholic cirrhosis: -consider 1-on-1 prn if needed for agitation -seroquel to 25mg BID scheduled to address delirium (if agitation persists may add additional 12.5 mg dose prn in afternoon as this tends to be worse time of day), would check EKG QTc routinely but QTc per last EKG is stable and <500ms, can slightly reduce seizure threshold but he is on keppra and lamictal and has been stable in this regard -melatonin 3mg qhs -Continue with delirium prevention measures -For behavioral emergency: olanzapine 2.5 mg IM x 1 (DO NOT exceed 10mg per 24 hours, check EKG if IM dose required, NEVER co-administer with IM or IV benzodiazepines). Interval History Identifying Information 56 yo man with history of TBI at age 16, alcohol use disorder severe with medical sequelae of cerebellar ataxia/neuropathy/esophageal varices/cirrhosis a nd seizure disorder on keppra and lamictal admitted medically for alcohol withdrawal and seizure in this context. Psychiatry consulted for delirium management. Chief Complaint incoherent mumbling Review of Systems Notes unable to assess given cognitive status Subjective Subjective Patient was seen & assessed and interval progress reviewed. Continues with periods of agitation. Speech remains incoherent. Has been eating with nursing assistance. Could state his name and birthdate this morning. Currently lying in bed, appears restless, unable to communicate or respond to verbal commands. Physical Exam Psychiatric Orientation: alert; + not oriented to person, + not oriented to place and + not oriented to time Apperance: appropriately dressed and appropriately groomed Eye Contact: + poor eye contact Motor Behavior: no abnormal motor movements Speech: + abnormal rate/rhythm/volume of speech (garbled) Affect: + constricted affect Thought Process: + incoherent thought process Hallucinations: no auditory hallucinations (does not appear to be responding but diff to assess) and no visual hallucinations Cognition: + recent memory not intact, + remote memory not intact, + attention not intact and + language not intact Insight: + severely impaired insight Judgement: + severely impaired judgement Vital Signs (Past 24 Hours) Last Vital Signs Temp 37.1 C 08/24/21 07:15 Pulse 82 08/24/21 07:15 Resp 16 08/24/21 07:15 BP 119/68 08/24/21 07:15 Pulse Ox 93 08/24/21 07:15 Results & Data ([facility]) Laboratory Results Laboratory Results - last 24 hr 08/23/21 10:43 RPR Nonreactive Current Inpatient Medications Current Inpatient Medications: Current Inpatient Medications Allopurinol (Allopurinol 300 Mg Tab) 300 mg PO DAILY [facility] Stop: 09/04/21 08:59 Last Admin: 08/24/21 08:35 Dose: 300 mg Documented by: Folic Acid (Folic Acid 1 Mg Tab) 1 mg PO DAILY [facility] Stop: 09/04/21 08:59 Last Admin: 08/24/21 08:35 Dose: 1 mg Documented by: Haloperidol Lactate (Haloperidol Lactate 5 Mg/Ml 1 Ml Vial) 5 mg IM Q6H PRN PRN Reason: Agitation Stop: 09/22/21 10:54 Hydralazine HCl (Hydralazine Hcl 20 Mg/Ml Vial) 10 mg IV Q6H PRN PRN Reason: sbp>170 or dbp>100 Stop: 09/21/21 17:14 Thiamine HCl 250 mg/ Sodium (Chloride) 52.5 mls @ 210 mls/hr IV DAILY [facility] Stop: 08/26/21 12:00 Last Infusion: 08/24/21 09:02 Dose: Infused Documented by: Ampicillin Sodium/Sulbactam Sodium 1,500 mg/ Sodium Chloride 104 mls @ 200 mls/hr IV Q6H [facility]; Protocol Stop: 08/26/21 13:29 Last Infusion: 08/24/21 10:51 Dose: Infused Documented by: Lamotrigine (Lamotrigine 100 Mg Tab) 300 mg PO BID [facility] Stop: 09/03/21 20:59 Last Admin: 08/24/21 08:35 Dose: 300 mg Documented by: Levetiracetam (Levetiracetam 250 Mg Tab) 750 mg PO BID [facility] Stop: 09/16/21 20:59 Last Admin: 08/24/21 08:35 Dose: 750 mg Documented by: Magnesium Oxide (Magnesium Oxide 400 Mg Tab) 400 mg PO QAM [facility] Stop: 09/03/21 10:44 Last Admin: 08/24/21 08:35 Dose: 400 mg Documented by: Melatonin (Melatonin 3 Mg Tab) 3 mg PO HS [facility] Stop: 09/22/21 20:59 Last Admin: 08/23/21 20:37 Dose: 3 mg Documented by: Metoprolol Tartrate (Metoprolol Tartrate 25 Mg Tab) 75 mg PO BID [facility] Stop: 09/15/21 20:59 Last Admin: 08/24/21 08:35 Dose: 75 mg Documented by: Multivitamins (Multivitamin Tab) 1 tab PO QAM [facility] Stop: 09/06/21 10:59 Last Admin: 08/24/21 08:35 Dose: 1 tab Documented by: Pantoprazole Sodium (Pantoprazole 40 Mg Tab) 40 mg PO DAILY [facility] Stop: 09/04/21 08:59 Last Admin: 08/24/21 08:35 Dose: 40 mg Documented by: Polyethylene Glycol (Polyethylene (Miralax) 17 Gm Pack) 17 gm PO DAILY PRN PRN Reason: Constipation Stop: 09/03/21 12:29 Quetiapine Fumarate (Quetiapine Fumarate 25 Mg Tablet) 25 mg PO BID [facility] Stop: 09/22/21 12:59 Last Admin: 08/24/21 08:34 Dose: 25 mg Documented by: Rifaximin (Rifaximin 550 Mg Tablet) 550 mg PO BID [facility] Stop: 09/03/21 20:59 Last Admin: 08/24/21 08:35 Dose: 550 mg Documented by: Spironolactone (Spironolactone 25 Mg Tab) 50 mg PO DAILY [facility] Stop: 09/04/21 08:59 Last Admin: 08/24/21 08:35 Dose: 50 mg Documented by: Tamsulosin HCl (Tamsulosin Hcl 0.4 Mg Cap) 0.4 mg PO [facility] Stop: 09/17/21 20:59 Last Admin: 08/23/21 20:37 Dose: 0.4 mg Documented by: Thiamine HCl (Thiamine Hcl 100 Mg Tab) 100 mg PO [facility] Stop: 09/26/21 08:59
--- NOTE | 2021-08-24 16:26 | Hospitalist Progress Note ---
Date of Service August 24, 2021 Assessment & Plan (1) Encephalopathy: Plan: Uncertain if this is toxic d/t ongoing EtOH withdrawal or if pt has a component of EtOH induced dementia with superimposed delirium Baseline unclear at this time MRI of the brain with and without contrast performed 08/17, no acute findings noted Concern that current state may be permanent and may not return to his baseline mentation which was communicated to his Is still having intermittent periods of agitation Started on Seroquel with up titration guided per psychiatry. Psych believes this may be prolonged delirium given his longstanding history of alcohol abuse and is hopeful this will continue to improve with time Given underlying EtOH abuse and ongoing encephalopathy, on high dose IV Thiamine for possible wernicke's with transition back to 100mg orally for maint enance on 08/27 Pt also could have a component of metabolic encephalopathy d/t UTI (Enterococcus faecalis) which could be contributing to his AMS as well For completeness sake, added TSH, vitamin B12, vitamin D level, RPR, VBG, and ammonia level--> all WNL (2) Alcohol withdrawal: Plan: Completed Librium/Neurontin taper utilized Ativan upfront with AWSS monitorring Patient remains encephalopathic. Uncertain if this is secondary to prolonged withdrawal As noted, is on Thiamine, Folic Acid, and Multivitamin (3) UTI (urinary tract infection): Plan: Secondary to E. faecalis, sensitive to Ampicillin Continue Unasyn. Antibiotics to complete 08/26 (4) Urinary retention: Plan: Could be secondary to medications, especially hydroxyzine + UTI Hydroxyzine discontinued Started flomax 0.4mg HS UA is positive for 1+ LE and 5-10 WBC Urine cx with E. faecalis -- continue Unasyn started 08/21 Now with indwelling Lam catheter. Keep in place with trial of void after c ompletion of antibiotics for UTI. 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 twice daily Continue Lamictal 300 mg p.o. twice daily EEG with no evidence of occult seizure. Initial speech screen failed, NG placed for nutrition/meds. 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, uses 2 canes for mobility Thiamine and acute alcohol withdrawal management as previously noted Current baseline unclear at this point (7) Portal hypertension: Plan: Chronic EtOH use with associated alcohol-induced cirrhosis, portal hypertension, and esophageal varices On chronic Aldactone (8) Peripheral neuropathy: Plan: Previously on Neurontin which has been stopped (9) Coronary artery disease: Plan: CAD and HTN was on ASA monotherapy, ASA monotherapy stopped due to thrombocytopenia, seizures, EtOH falls with concern for bleeding also on metoprolol tartrate which was uptitrated from 50mg to 75mg BID for better BP control (10) Alcoholic cirrhosis: Plan: Patient reported history of hepatitis C. Prior outpatient antibody tests negative HCV RNA Continue rifaximin, spironolactone 50 mg daily, Lasix 20 mg daily Continue thiamine supplementation US Liver without signs of hepatic masses. Cirrhosis appreciated. typically follows [facility] EGD 08/11: Grade 1 varices in lower third of the esophagus ammonia 08/08 is normal. LFTs are slightly elevated but stable INR slightly elevated consistent with auto anticoagulation given his underlying cirrhosis (11) Anemia: Plan: Apparently was pancytopenic at some point during this hospitalization which was felt to be secondary to EtOH mediated marrow suppression no longer an issue, platelets and wbc count have normalized H&H stable Plan: Continue PT/OT. Rehab potential unknown at this point as he remains encephalopathic. Uncertain if this will continue to clear or if this is perhaps his baseline All rehab facilities unable to take patient until he was without behaviors for >24 hoursagain still with intermittent periods of agitation Case management following Plan to be d/w Dr. Rodas. Admission and Anticipated Discharge Date Admission Date: August 04, 2021 Subjective Patient seen on daily rounds today. In bed. Seems more awake today. Talkative but mostly nonsensical. I am; however, able to make out his speech. He is oriented to self but not to time, place or situation. He does seem to be having hallucinations as he continues to look past me, point to the door and ask if "he can hold that". Nursing voices no c/c. Review of Systems Review of Systems: Unobtainable Physical Exam Physical Exam: limited cooperation General: Resting comfortably in his hospital bed. More awake. Talkative. Speech pattern somewhat sensible HEENT: Head is AT/NC but exam limited Neck: Limited exam. No obvious JVD Cardiac: Limited exam. From what I can tell appears to be regular rate and rhythm Lungs: CTA without W/R/R Abdomen: Normoactive X4. Again, limited exam Extremities: No peripheral clubbing cyanosis or edema Neuro: Awake. Oriented to self but not to place, time or situation Exam very limited due to lack of cooperation Skin: No obvious skin lesions or rashes Psych: Limited. Results & Data Results & Data ([facility]) Vital Signs (Past 12 Hours) Vital Signs Temp Pulse Resp BP Pulse Ox 08/24/21 14:23 36.2 C L 71 18 97/59 L 93 08/24/21 07:15 37.1 C 82 16 119/68 93 Laboratory Results No lab data today PG Care Time/CCT Total # of Minutes Spent Total Time Spent with Patient: Total time spent is greater than 50% in coordination of care (as documented) at patient's floor/unit and/or counseling patient: Coding Level of Care Code 63897 Subseq Hosp Care Lvl 2 Diagnoses Encephalopathy G93.40 Alcohol withdrawal F10.239 UTI (urinary tract infection) N39.0 Urinary retention R33.9 Seizure R56.9 Alcoholic cerebellar degeneration F10.20; G31.2 Portal hypertension K76.6 Peripheral neuropathy G62.9 Coronary artery disease I25.10 Alcoholic cirrhosis K70.30 Anemia D64.9
[2021-08-24] MEDS: MELATONIN 3 MG TAB PO SCH (19:38)
[2021-08-24] MEDS: TAMSULOSIN HCL 0.4 MG CAP PO SCH (19:40)
[2021-08-25] MEDS: AMPICILLIN/SULBACTAM SOD 1,500 MG in 0.9 % SODIUM CHLORIDE 100 ML IV SCH ×4 (01:37→19:46)
[2021-08-25] MEDS: FOLIC ACID 1 MG TAB PO SCH (08:15)
[2021-08-25] MEDS: PANTOprazole 40 MG TAB PO SCH (08:15)
[2021-08-25] MEDS: allopurinoL 300 MG TAB PO SCH (08:15)
[2021-08-25] MEDS: MULTIVITAMIN TAB PO SCH (08:15)
[2021-08-25] MEDS: QUEtiapine FUMARATE 25 MG TABLET PO SCH ×2 (08:15→19:51)
[2021-08-25] MEDS: METOPROLOL TARTRATE 25 MG TAB PO SCH ×2 (08:15→19:50)
[2021-08-25] MEDS: SPIRONOLACTONE 25 MG TAB PO SCH (08:15)
[2021-08-25] MEDS: MAGNESIUM OXIDE 400 MG TAB PO SCH (08:15)
[2021-08-25] MEDS: rifAXIMin 550 MG TABLET PO SCH ×2 (08:15→19:49)
[2021-08-25] MEDS: lamoTRIgine 100 MG TAB PO SCH ×2 (08:16→19:51)
[2021-08-25] MEDS: levETIRAcetam 250 MG TAB PO SCH ×2 (08:16→19:49)
[2021-08-25] MEDS: THIAMINE HCL 250 MG in SODIUM CHLORIDE 0.9% 50 ML IV SCH (08:23)
--- NOTE | 2021-08-25 11:33 | Psychiatric Progress Note ---
Date of Service August 25, 2021 Impression / Recommendations Impression 56 yo man with history of TBI and chronic prefrontal lobe changes, severe alcohol use disorder and seizure disorder admitted medically for alcohol withdrawal and now with ongoing confusion even with completion of benzo taper. Diagnostically consistent with encephalopathy/delirium which seems to be varying between hyperactive and hypoactive delirium states. 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 08/25/21: Ongoing delirium, no agitation overnight now on higher dose of seroquel BID with no apparent side effects. Continue with BID seroquel, if agitation persists could add afternoon dose of 12.5 mg scheduled or prn. (1) Encephalopathy: (2) Alcohol use disorder, severe, dependence: (3) UTI (urinary tract infection): (4) Seizure disorder: (5) Alcoholic cirrhosis: -consider 1-on-1 prn if needed for agitation -seroquel 25mg BID scheduled to address delirium (if agitation persists may add additional 12.5 mg dose scheduled or prn in afternoon as this tends to be worse time of day), would check EKG QTc routinely but QTc per last EKG is stable and <500ms, can slightly reduce seizure threshold but he is on keppra and lamictal and has been stable in this regard -melatonin 3mg qhs -Continue with delirium prevention measures -For behavioral emergency: olanzapine 2.5 mg IM x 1 (DO NOT exceed 10mg per 24 hours, check EKG if IM dose required, NEVER co-administer with IM or IV benzodiazepines). Interval History Identifying Information 56 yo man with history of TBI at age 16, alcohol use disorder severe with medical sequelae of cerebellar ataxia/neuropathy/esophageal varices/cirrhosis and seizure disorder on keppra and lamictal admitted medically for alcohol withdrawal and seizure in this context. Psychiatry consulted for delirium management. Chief Complaint patient mute Subjective Subjective Patient was seen & assessed and interval progress reviewed. Appears he slept overnight and was cooperative with nursing care. No apparent side effects from the seroquel. Today was lying in bed awaiting nursing assistance for a bath. He did not open his eyes or engage but was awake and moving at times. Per nursing tends to be oriented only to self. Eating with assistance. Appeared to be responding to possible visual hallucinations yesterday afternoon. Physical Exam Psychiatric Orientation: alert; + not oriented to person, + not oriented to place and + not oriented to time Apperance: appropriately dressed and appropriately groomed Eye Contact: + poor eye contact Motor Behavior: no abnormal motor movements Speech: + mute Affect: + constricted affect Thought Process: + incoherent thought process Hallucinations: no auditory hallucinations (does not appear to be responding but diff to assess) and no visual hallucinations Cognition: + recent memory not intact, + remote memory not intact, + attention not intact and + language not intact Insight: + severely impaired insight Judgement: + severely impaired judgement Vital Signs (Past 24 Hours) Last Vital Signs Temp 36.6 C 08/25/21 07:45 Pulse 90 08/25/21 07:45 Resp 18 08/25/21 07:45 BP 139/79 08/25/21 07:45 Pulse Ox 95 08/25/21 07:45 Results & Data ([facility]) Current Inpatient Medications Current Inpatient Medications: Current Inpatient Medications Allopurinol (Allopurinol 300 Mg Tab) 300 mg PO DAILY [facility] Stop: 09/04/21 08:59 Last Admin: 08/25/21 08:15 Dose: 300 mg Documented by: Folic Acid (Folic Acid 1 Mg Tab) 1 mg PO DAILY [facility] Stop: 09/04/21 08:59 Last Admin: 08/25/21 08:15 Dose: 1 mg Documented by: Haloperidol Lactate (Haloperidol Lactate 5 Mg/Ml 1 Ml Vial) 5 mg IM Q6H PRN PRN Reason: Agitation Stop: 09/22/21 10:54 Hydralazine HCl (Hydralazine Hcl 20 Mg/Ml Vial) 10 mg IV Q6H PRN PRN Reason: sbp>170 or dbp>100 Stop: 09/21/21 17:14 Thiamine HCl 250 mg/ Sodium (Chloride) 52.5 mls @ 210 mls/hr IV DAILY [facility] Stop: 08/26/21 12:00 Last Infusion: 08/25/21 08:49 Dose: Infused Documented by: Ampicillin Sodium/Sulbactam Sodium 1,500 mg/ Sodium Chloride 104 mls @ 200 mls/hr IV Q6H [facility]; Protocol Stop: 08/26/21 13:29 Last Infusion: 08/25/21 08:40 Dose: Infused Documented by: Lamotrigine (Lamotrigine 100 Mg Tab) 300 mg PO BID [facility] Stop: 09/03/21 20:59 Last Admin: 08/25/21 08:16 Dose: 300 mg Documented by: Levetiracetam (Levetiracetam 250 Mg Tab) 750 mg PO BID [facility] Stop: 09/16/21 20:59 Last Admin: 08/25/21 08:16 Dose: 750 mg Documented by: Magnesium Oxide (Magnesium Oxide 400 Mg Tab) 400 mg PO QAM [facility] Stop: 09/03/21 10:44 Last Admin: 08/25/21 08:15 Dose: 400 mg Documented by: Melatonin (Melatonin 3 Mg Tab) 3 mg PO HS [facility] Stop: 09/22/21 20:59 Last Admin: 08/24/21 19:38 Dose: 3 mg Documented by: Metoprolol Tartrate (Metoprolol Tartrate 25 Mg Tab) 75 mg PO BID [facility] Stop: 09/15/21 20:59 Last Admin: 08/25/21 08:15 Dose: 75 mg Documented by: Multivitamins (Multivitamin Tab) 1 tab PO QAM [facility] Stop: 09/06/21 10:59 Last Admin: 08/25/21 08:15 Dose: 1 tab Documented by: Pantoprazole Sodium (Pantoprazole 40 Mg Tab) 40 mg PO DAILY [facility] Stop: 09/04/21 08:59 Last Admin: 08/25/21 08:15 Dose: 40 mg Documented by: Polyethylene Glycol (Polyethylene (Miralax) 17 Gm Pack) 17 gm PO DAILY PRN PRN Reason: Constipation Stop: 09/03/21 12:29 Quetiapine Fumarate (Quetiapine Fumarate 25 Mg Tablet) 25 mg PO BID [facility] Stop: 09/22/21 12:59 Last Admin: 08/25/21 08:15 Dose: 25 mg Documented by: Rifaximin (Rifaximin 550 Mg Tablet) 550 mg PO BID [facility] Stop: 09/03/21 20:59 Last Admin: 08/25/21 08:15 Dose: 550 mg Documented by: Spironolactone (Spironolactone 25 Mg Tab) 50 mg PO DAILY [facility] Stop: 09/04/21 08:59 Last Admin: 08/25/21 08:15 Dose: 50 mg Documented by: Tamsulosin HCl (Tamsulosin Hcl 0.4 Mg Cap) 0.4 mg PO [facility] Stop: 09/17/21 20:59 Last Admin: 08/24/21 19:40 Dose: 0.4 mg Documented by: Thiamine HCl (Thiamine Hcl 100 Mg Tab) 100 mg PO [facility] Stop: 09/26/21 08:59
[2021-08-25] MEDS ORDERED: bisacodyL 10 MG SUPP PR STA (12:32)
--- NOTE | 2021-08-25 12:51 | Hospitalist Progress Note ---
Date of Service August 25, 2021 Assessment & Plan (1) Encephalopathy: Plan: Uncertain if this is toxic d/t ongoing EtOH withdrawal or if pt has a component of EtOH induced dementia with superimposed delirium Baseline unclear at this time MRI of the brain with and without contrast performed 08/17, no acute findings noted Concern that current state may be permanent and may not return to his baseline mentation which was communicated to his Is still having intermittent periods of agitation Started on Seroquel with up titration guided per psychiatry. Psych believes this may be prolonged delirium given his longstanding history of alcohol abuse and is hopeful this will continue to improve with time Given underlying EtOH abuse and ongoing encephalopathy, on high dose IV Thiamine for possible wernicke's with transition back to 100mg orally for maint enance on 08/27 Pt also could have a component of metabolic encephalopathy d/t UTI (Enterococcus faecalis) which could be contributing to his AMS as well For completeness sake, added TSH, vitamin B12, vitamin D level, RPR, VBG, and ammonia level--> all WNL Overall, is showing continued favorable response (2) Alcohol withdrawal: Plan: Completed Librium/Neurontin taper utilized Ativan upfront with AWSS monitorring Patient remains encephalopathic. Uncertain if this is secondary to prolonged withdrawal--> overall mentation slowly improving As noted, is on Thiamine, Folic Acid, and Multivitamin (3) UTI (urinary tract infection): Plan: Secondary to E. faecalis, sensitive to Ampicillin Continue Unasyn. Antibiotics to complete 08/26 (4) Urinary retention: Plan: Could be secondary to medications, especially hydroxyzine + UTI Hydroxyzine discontinued Started flomax 0.4mg HS UA is positive for 1+ LE and 5-10 WBC Urine cx with E. faecalis -- continue Unasyn started 08/21 Lam catheter to be removed. Nurse asked to perform post void bladder scan to assess residual. If patient unable to void within 6 to 8 hours of removal of Lam catheter, nurse instructed to BladderScan (5) Seizure: Plan: Seizure subsequent to EtOH Withdrawal; Ethyl alcohol on admit 21.1, - CT-H without acute findings Pt reports last drink 1-2 days prior to admission, At least 8 beers daily usually Continue Keppra 750 mg p.o. twice daily Continue Lamictal 300 mg p.o. twice daily EEG with no evidence of occult seizure. Initial speech screen failed, NG placed for nutrition/meds. 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, uses 2 canes for mobility Thiamine and acute alcohol withdrawal management as previously noted Current baseline unclear at this point (7) Portal hypertension: Plan: Chronic EtOH use with associated alcohol-induced cirrhosis, portal hypertension, and esophageal varices On chronic Aldactone (8) Peripheral neuropathy: Plan: Previously on Neurontin which has been stopped (9) Coronary artery disease: Plan: CAD and HTN was on ASA monotherapy, ASA monotherapy stopped due to thrombocytopenia, seizures, EtOH falls with concern for bleeding also on metoprolol tartrate which was uptitrated from 50mg to 75mg BID for better BP control (10) Alcoholic cirrhosis: Plan: Patient reported history of hepatitis C. Prior outpatient antibody tests negative HCV RNA Continue rifaximin, spironolactone 50 mg daily, Lasix 20 mg daily Continue thiamine supplementation US Liver without signs of hepatic masses. Cirrhosis appreciated. typically follows [facility] EGD 08/11: Grade 1 varices in lower third of the esophagus ammonia 08/08 is normal. LFTs are slightly elevated but stable INR slightly elevated consistent with auto anticoagulation given his underl delfin cirrhosis (11) Anemia: Plan: Apparently was pancytopenic at some point during this hospitalization which was felt to be secondary to EtOH mediated marrow suppression no longer an issue, platelets and wbc count have normalized H&H stable (12) Constipation: Plan: Continue MiraLAX daily as needed Start lactulose daily (especially in the setting of underlying cirrhosis. His ammonia level has not been elevated) Can utilize Dulcolax suppository as needed (13) Subconjunctival hemorrhage: Plan: Noted to left eye Uncertain exact etiology as no recent seizure, no vomiting or coughing. will monitor Plan: Continue PT/OT. Rehab potential unknown at this point as he remains encephalopathic. Uncertain if this will continue to clear or if this is perhaps his baseline All rehab facilities unable to take patient until he was without behaviors for >24 hourswhich no behaviors since the overnight hours of 08/23--> told that facilities cannot accept him over the weekend Case management following Plan to be d/w Dr. Rodas. Admission and Anticipated Discharge Date Admission Date: August 04, 2021 Subjective Patient seen on daily rounds today. In bed. Seems more awake today. Talkative and making more sense. Seems to be making some jokes with me and winking at the nurse. Nurse reports that patient has not had a BM since 08/18. Unable to get enough li quid in orally to take Miralax. Nursing also concerned about his left eye is red and bleeding. No injury to knowledge of staff. No vomiting, coughing, etc. Patient unable to provide any hx Nursing voices no c/c. Review of Systems Review of Systems: Unobtainable But answered no when asked if he is having any F/C, CP, SOB, abd pain, N/V or pain. Physical Exam Physical Exam: limited cooperation General: Resting comfortably in his hospital bed. More awake. Talkative. HEENT: left eye with subconjunctival hemorrhage. Head is AT/NC but exam limited Neck: Limited exam. No obvious JVD Cardiac: Limited exam. From what I can tell appears to be regular rate and rhythm Lungs: CTA without W/R/R Abdomen: Normoactive X4. Again, limited exam Extremities: No peripheral clubbing cyanosis or edema Neuro: Awake. Oriented to self but not to place, time or situation Exam very limited due to lack of cooperation Skin: No obvious skin lesions or rashes Psych: Limited. Results & Data Results & Data ([facility]) Vital Signs (Past 12 Hours) Vital Signs Temp Pulse Resp BP Pulse Ox 08/25/21 07:45 36.6 C 90 18 139/79 95 Laboratory Results Last labs: 08/22/21 09:42 08/22/21 09:42 PG Care Time/CCT Total # of Minutes Spent Total Time Spent with Patient: Total time spent is greater than 50% in coordination of care (as documented) at patient's floor/unit and/or counseling patient: Coding Level of Care Code 29386 Subseq Hosp Care Lvl 2 Diagnoses Encephalopathy G93.40 Alcohol withdrawal F10.239 UTI (urinary tract infection) N39.0 Urinary retention R33.9 Seizure R56.9 Alcoholic cerebellar degeneration F10.20; G31.2 Portal hypertension K76.6 Peripheral neuropathy G62.9 Coronary artery disease I25.10 Alcoholic cirrhosis K70.30 Anemia D64.9 Constipation K59.00 Subconjunctival hemorrhage H11.30
[2021-08-25] MEDS: MELATONIN 3 MG TAB PO SCH (19:49)
[2021-08-25] MEDS: TAMSULOSIN HCL 0.4 MG CAP PO SCH (19:50)
[2021-08-26] MEDS: AMPICILLIN/SULBACTAM SOD 1,500 MG in 0.9 % SODIUM CHLORIDE 100 ML IV SCH ×2 (02:20→13:42)
--- NOTE | 2021-08-26 12:10 | Hospitalist Progress Note ---
Date of Service August 26, 2021 Assessment & Plan (1) Encephalopathy: Plan: Uncertain if this is toxic d/t ongoing EtOH withdrawal or if pt has a component of EtOH induced dementia with superimposed delirium Baseline unclear at this time MRI of the brain with and without contrast performed 08/17, no acute findings noted Concern that current state may be permanent and may not return to his baseline mentation which was communicated to his Is still having intermittent periods of agitation- no longer combative but pulling out IV's Started on Seroquel with up titration guided per psychiatry. Psych believes this may be prolonged delirium given his longstanding history of alcohol abuse and is hopeful this will continue to improve with time Given underlying EtOH abuse and ongoing encephalopathy, on high dose IV Thiamine for possible wernicke's with transition back to 100mg orally for maintenance on 08/27 Pt also could have a component of metabolic encephalopathy d/t UTI (Enterococcus faecalis) which could be contributing to his AMS as well-- co mpleted full course of abx For completeness sake, added TSH, vitamin B12, vitamin D level, RPR, VBG, and ammonia level--> all WNL Overall, is showing slow but favorable response (2) Alcohol withdrawal: Plan: Completed Librium/Neurontin taper utilized Ativan upfront with AWSS monitorring Patient remains encephalopathic. Uncertain if this is secondary to prolonged withdrawal--> overall mentation slowly improving As noted, is on Thiamine, Folic Acid, and Multivitamin (3) UTI (urinary tract infection): Plan: Secondary to E. faecalis, sensitive to Ampicillin--completed full course of ampicillin (4) Urinary retention: Plan: Could be secondary to medications, especially hydroxyzine + UTI Hydroxyzine discontinued Started flomax 0.4mg HS Urine cx with E. faecalis --completed a full course of ampicillin Lam catheter removed. Patient is voiding/mostly incontinent. Unable to adequately measure a postvoid bladder scan but does not seem to be significantly retaining at this time (5) Seizure: Plan: Seizure subsequent to EtOH Withdrawal; Ethyl alcohol on admit 21.1, - CT-H without acute findings Pt reports last drink 1-2 days prior to admission, At least 8 beers daily usually Continue Keppra 750 mg p.o. twice daily Continue Lamictal 300 mg p.o. twice daily EEG with no evidence of occult seizure. Initial speech screen failed, NG placed for nutrition/meds. 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, uses 2 canes for mobility Thiamine and acute alcohol withdrawal management as previously noted Current baseline unclear at this point (7) Portal hypertension: Plan: Chronic EtOH use with associated alcohol-induced cirrhosis, portal hypertension, and esophageal varices On chronic Aldactone (8) Peripheral neuropathy: Plan: Previously on Neurontin which has been stopped (9) Coronary artery disease: Plan: CAD and HTN was on ASA monotherapy, ASA monotherapy stopped due to thrombocytopenia, seizures, EtOH falls with concern for bleeding also on metoprolol tartrate which was uptitrated from 50mg to 75mg BID for better BP control (10) Alcoholic cirrhosis: Plan: Patient reported history of hepatitis C. Prior outpatient antibody tests negative HCV RNA Continue rifaximin, spironolactone 50 mg daily, Lasix 20 mg daily Continue thiamine supplementation US Liver without signs of hepatic masses. Cirrhosis appreciated. typically follows [facility] EGD 08/11: Grade 1 varices in lower third of the esophagus ammonia 08/08 is normal. LFTs are slightly elevated but stable INR slightly elevated consistent with auto anticoagulation given his un derlying cirrhosis (11) Anemia: Plan: Apparently was pancytopenic at some point during this hospitalization which was felt to be secondary to EtOH mediated marrow suppression no longer an issue, platelets and wbc count have normalized H&H stable (12) Constipation: Plan: Continue MiraLAX daily as needed Started on lactulose daily (especially in the setting of underlying cirrhosis. His ammonia level has not been elevated) Can utilize Dulcolax suppository as needed - moving his bowels (13) Subconjunctival hemorrhage: Plan: Noted to left eye Uncertain exact etiology as no recent seizure, no vomiting or coughing. will monitor Plan: Continue PT/OT. Rehab potential unknown at this point as he remains encephalopathic. Uncertain if this will continue to clear or if this is perhaps his baseline All rehab facilities unable to take patient until he was without behaviors for >24 hoursno combative behaviors since the overnight hours of 08/23. limited cooperative; however, (taking pills)--> told that facilities cannot accept him over the weekend Case management following Plan to be d/w Dr. Rodas. Admission and Anticipated Discharge Date Admission Date: August 04, 2021 Subjective Patient seen on daily rounds today. Excessively somnolent and difficult to arouse. Nursing reports that he did wake briefly and was oriented to self/place and was asking "Why am I in the hospital". If voiding (incontinent). Several bladder scans with 200-300 (in an attempt to get a post void) but is incontinent; thus, not getting true post void read. Nursing claims patient has removed multiple IVs. Not having combative behavior but still very fidgety and pulling at IVs. Review of Systems Review of Systems: Unobtainable Physical Exam Physical Exam: General: Resting comfortably in his hospital bed. Excessively somnolent and barely arousable for me today. NAD. HEENT: Head is AT/NC. Buccal mucosa is dry with dried saliva Neck: No JVD. Negative hepatojugular reflex Cardiac: RRR without M/G/R Lungs: CTA without W/R/R Abdomen: Normoactive X4. Soft and does not appear tender Extremities: No peripheral clubbing cyanosis or edema Neuro:somnolent and limited today Skin: poor mouth hygiene today Psych:somnolent and barely arousable Results & Data Results & Data ([facility]) Vital Signs (Past 12 Hours) Vital Signs Temp Pulse Resp BP Pulse Ox 08/26/21 08:10 36.8 C 88 16 129/77 95 08/26/21 00:06 37.4 C 85 18 131/78 93 Laboratory Results no lab data today PG Care Time/CCT Total # of Minutes Spent Total Time Spent with Patient: Total time spent is greater than 50% in coordination of care (as documented) at patient's floor/unit and/or counseling patient: Coding Level of Care Code 41087 Subseq Hosp Care Lvl 1 Diagnoses Encephalopathy G93.40 Alcohol withdrawal F10.239 UTI (urinary tract infection) N39.0 Urinary retention R33.9 Seizure R56.9 Alcoholic cerebellar degeneration F10.20; G31.2 Portal hypertension K76.6 Peripheral neuropathy G62.9 Coronary artery disease I25.10 Alcoholic cirrhosis K70.30 Anemia D64.9 Constipation K59.00 Subconjunctival hemorrhage H11.30
[2021-08-26] MEDS: THIAMINE HCL 250 MG in SODIUM CHLORIDE 0.9% 50 ML IV SCH (13:41)
[2021-08-26] MEDS: lamoTRIgine 100 MG TAB PO SCH ×2 (13:44→20:25)
[2021-08-26 15:30] LABS: Base Excess VBG 6.7 mEq/L; HCO3 VBG 32 mmol/L; PCO2 VBG 46 mmHg (38-50); PO2 VBG 22 mmHg; pH VBG 7.45 (7.36-7.41)
[2021-08-26 15:38] LABS: Oxygen Saturation VBG < 60.0 %
[2021-08-26] MEDS: MULTIVITAMIN TAB PO SCH (16:33)
[2021-08-26] MEDS: METOPROLOL TARTRATE 25 MG TAB PO SCH ×2 (16:33→20:28)
[2021-08-26] MEDS: LACTULOSE SYRUP 20 GM/30 ML UDC PO SCH (16:33)
[2021-08-26] MEDS: allopurinoL 300 MG TAB PO SCH (16:33)
[2021-08-26] MEDS: levETIRAcetam 250 MG TAB PO SCH ×2 (16:33→20:25)
[2021-08-26] MEDS: MAGNESIUM OXIDE 400 MG TAB PO SCH (16:33)
[2021-08-26] MEDS: PANTOprazole 40 MG TAB PO SCH (16:33)
[2021-08-26] MEDS: FOLIC ACID 1 MG TAB PO SCH (16:33)
[2021-08-26] MEDS: rifAXIMin 550 MG TABLET PO SCH ×2 (16:34→20:27)
[2021-08-26] MEDS: QUEtiapine FUMARATE 25 MG TABLET PO SCH ×2 (16:34→20:24)
[2021-08-26] MEDS: SPIRONOLACTONE 25 MG TAB PO SCH (16:34)
[2021-08-26] MEDS: TAMSULOSIN HCL 0.4 MG CAP PO SCH (20:25)
[2021-08-26] MEDS: MELATONIN 3 MG TAB PO SCH (20:27)
[2021-08-26] MEDS ORDERED: TAMSULOSIN HCL 0.4 MG CAP PO SCH (21:00)
[2021-08-27] MEDS: QUEtiapine FUMARATE 25 MG TABLET PO SCH ×2 (07:40→21:12)
[2021-08-27] MEDS: FOLIC ACID 1 MG TAB PO SCH (07:40)
[2021-08-27] MEDS: THIAMINE HCL 100 MG TAB PO SCH (07:40)
[2021-08-27] MEDS: LACTULOSE SYRUP 20 GM/30 ML UDC PO SCH (07:40)
[2021-08-27] MEDS: rifAXIMin 550 MG TABLET PO SCH ×2 (07:40→21:12)
[2021-08-27] MEDS: allopurinoL 300 MG TAB PO SCH (07:40)
[2021-08-27] MEDS: PANTOprazole 40 MG TAB PO SCH (07:40)
[2021-08-27] MEDS: SPIRONOLACTONE 25 MG TAB PO SCH (07:40)
[2021-08-27] MEDS: levETIRAcetam 250 MG TAB PO SCH ×2 (07:41→21:10)
[2021-08-27] MEDS: MULTIVITAMIN TAB PO SCH (07:41)
[2021-08-27] MEDS: lamoTRIgine 100 MG TAB PO SCH ×2 (07:41→21:10)
[2021-08-27] MEDS: MAGNESIUM OXIDE 400 MG TAB PO SCH (07:42)
[2021-08-27] MEDS: METOPROLOL TARTRATE 25 MG TAB PO SCH ×2 (07:44→21:11)
--- NOTE | 2021-08-27 08:14 | XRay Report ---
XR chest 1V portable HISTORY: 56 years-old Male choking when taking pills acute dysphasia COMPARISON: 08/10/2021 TECHNIQUE: Portable AP view of the chest FINDINGS: Subcentimeter calcified granuloma of the left upper lung. Moderate cardiomegaly. No pneumothorax, ple ural effusion, airspace consolidation or overt pulmonary edema. Healed chronic right clavicular fract ure deformity. Degenerative changes of the shoulders and spine. IMPRESSION: No acute process. ACT 112: Negative or not required by law. The above report was generated using voice recognition software. It may contain grammatical, syntax o r spelling errors. Electronically signed by: Rogerio Harvey M.D. 08/27/2021 8:13 AM
--- NOTE | 2021-08-27 12:17 | Magnetic Resonance Report ---
MRI OF THE BRAIN WITHOUT IV CONTRAST CLINICAL HISTORY: Dysphagia COMPARISON STUDY: MRI of the brain dated 08/17/2021. TECHNIQUE: MRI of the brain was performed utilizing various T1 and T2-weighted sequences in the axial , sagittal, and coronal planes. IV contrast was not administered for this examination. FINDINGS: Brain parenchyma: There is age advanced involutional change noting minimal microangiopathic disease. Right frontal encephalomalacia is unchanged and consistent with a remote insult. There is no hemorrha ge or mass effect. There is no restricted diffusion to suggest acute ischemia. Ayala-white matter diff erentiation is preserved. No extra-axial fluid collection is seen. The cerebellar tonsils are normal in configuration. Ventricles, sulci, and cisterns: Prominent secondary to involutional change. Pituitary and sella: Unremarkable. Intracranial vasculature: Normal flow voids are maintained at the skull base. Orbits: The bony orbits are grossly intact. Orbital contents are normal in appearance. Sinuses and mastoids: Clear. Calvarium: Chronic deformity of the right frontal convexity is unchanged. No destructive calvarial le dinora is identified. Cervical cord: Partially visualized cervical spinal cord is normal in morphology and signal intensity . IMPRESSION: No acute intracranial abnormality and no change from 08/17/2021. ACT 112: Negative or not required by law. Electronically signed by: Mike Jay M.D. 08/27/2021 12:15 PM
--- NOTE | 2021-08-27 12:30 | Hospitalist Progress Note ---
Date of Service August 27, 2021 Assessment & Plan (1) Encephalopathy: Plan: Uncertain if this is toxic d/t ongoing EtOH withdrawal or if pt has a component of EtOH induced dementia with superimposed delirium Baseline unclear at this time MRI of the brain with and without contrast performed 08/17, no acute findings noted Concern that current state may be permanent and may not return to his baseline mentation which was communicated to his Is still having intermittent periods of agitation- no longer combative but pulling out IV's Started on Seroquel with up titration guided per psychiatry. Psych believes this may be prolonged delirium given his longstanding history of alcohol abuse and is hopeful this will continue to improve with time Given underlying EtOH abuse and ongoing encephalopathy, on high dose IV Thiamine for possible wernicke's with transition back to 100mg orally for maintenance on 08/27 Pt also could have a component of metabolic encephalopathy d/t UTI (Enterococcus faecalis) which could be contributing to his AMS as well-- co mpleted full course of abx For completeness sake, added TSH, vitamin B12, vitamin D level, RPR, VBG, and ammonia level--> all WNL Overall, is showing slow but favorable response It has been hard to do a thorough assessment given his excessive somnolence. He is now more awake and alert and his speech is garbled/there is concern for aspiration. Will obtain an MRI of the head to ensure he has not had an acute intracranial process (likwly related to prolonged withdrawal). I have consulted speech therapy--> appreciate recommendations. (2) Alcohol withdrawal: Plan: Completed Librium/Neurontin taper utilized Ativan upfront with AWSS monitorring Patient remains encephalopathic. Uncertain if this is secondary to prolonged withdrawal--> overall mentation slowly improving As noted, is on Thiamine, Folic Acid, and Multivitamin (3) UTI (urinary tract infection): Plan: Secondary to E. faecalis, sensitive to Ampicillin--completed full course of ampicillin (4) Urinary retention: Plan: Could be secondary to medications, especially hydroxyzine + UTI Hydroxyzine discontinued Started flomax 0.4mg HS Urine cx with E. faecalis --completed a full course of ampicillin Lam catheter removed. Patient is voiding/mostly incontinent. Unable to adequately measure a postvoid bladder scan but does not seem to be significantly retaining at this time (5) Seizure: Plan: Seizure subsequent to EtOH Withdrawal; Ethyl alcohol on admit 21.1, - CT-H without acute findings Pt reports last drink 1-2 days prior to admission, At least 8 beers daily usually Continue Keppra 750 mg p.o. twice daily Continue Lamictal 300 mg p.o. twice daily EEG with no evidence of occult seizure. Initial speech screen failed, NG placed for nutrition/meds. 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, uses 2 canes for mobility Thiamine and acute alcohol withdrawal management as previously noted Current baseline unclear at this point (7) Portal hypertension: Plan: Chronic EtOH use with associated alcohol-induced cirrhosis, portal hypertension, and esophageal varices On chronic Aldactone (8) Peripheral neuropathy: Plan: Previously on Neurontin which has been stopped (9) Coronary artery disease: Plan: CAD and HTN was on ASA monotherapy, ASA monotherapy stopped due to thrombocytopenia, seizures, EtOH falls with concern for bleeding also on metoprolol tartrate which was uptitrated from 50mg to 75mg BID for better BP control (10) Alcoholic cirrhosis: Plan: Patient reported history of hepatitis C. Prior outpatient antibody tests negative HCV RNA Continue rifaximin, spironolactone 50 mg daily, Lasix 20 mg daily Continue thiamine supplementation US Liver without signs of hepatic masses. Cirrhosis appreciated. typically follows [place] [facility] EGD 08/11: Grade 1 varices in lower third of the esophagus ammonia 18 and 6/ is normal. LFTs are slightly elevated but stable INR slightly elevated consistent with auto anticoagulation given his underlying cirrhosis (11) Anemia: Plan: Apparently was pancytopenic at some point during this hospitalization which was felt to be secondary to EtOH mediated marrow suppression no longer an issue, platelets and wbc count have normalized H&H stable (12) Constipation: Plan: Continue MiraLAX daily as needed Started on lactulose daily (especially in the setting of underlying cirrhosis. His ammonia level has not been elevated) Can utilize Dulcolax suppository as needed - moving his bowels (13) Subconjunctival hemorrhage: Plan: Noted to left eye Uncertain exact etiology as no recent seizure, no vomiting or coughing. will monitor Plan: Continue PT/OT. Rehab potential unknown at this point as he remains encephalopathic. Uncertain if this will continue to clear or if this is perhaps his baseline All rehab facilities unable to take patient until he was without behaviors for >24 hoursno combative behaviors since the overnight hours of 08/23. Was told that [facility] will not accept him until participating more with therapy. Referrals being made to SNF Case management following Plan to be d/w Dr. Rodas. Admission and Anticipated Discharge Date Admission Date: August 04, 2021 Subjective Patient seen on daily rounds today. He is much more awake. He is talkative but his speech is intermittently garbled. Per nursing, had difficulty swallowing his pills yesterday and there was concern that he potentially aspirated. He is not having any respiratory symptoms or requiring supplemental oxygen. A chest x-ray was done this morning showing no acute process. He has not had any agitation or combative behavior since 08/23. Yesterday he was pulling out his IV but again was excessively somnolent. Today he is much more awake and cooperative. He voices no c/c. Denies F/c, CP, SOB, ad pain, N/V. Review of Systems Review of Systems: Question reliability but seems much more awake and alert All systems reviewed and are unremarkable except as noted in HPI and below Denies fevers, chills, headache, nasal congestion, sore throat, cough, chest pain, shortness of breath, palpitations, orthopnea, PND, abdominal pain, nausea, vomiting, diarrhea, constipation, dysuria, hematuria, frequency, back pain, joint pain or swelling, easy bruising or bleeding, skin lesions or rashes. Physical Exam Physical Exam: General: Resting comfortably in his hospital bed. Much more awake. Speech slightly garbled HEENT: Head is AT/NC. Buccal mucosa is moist and pink. Improving subconjunctival hemorrhage on the left Neck: No JVD. Negative hepatojugular reflex Cardiac: RRR without M/G/R Lungs: CTA without W/R/R Abdomen: Normoactive X4. Soft and nontender in all quadrants. Extremities: No peripheral clubbing cyanosis or edema Neuro: Awake. Oriented to self. Is oriented to the year but not the month. Somewhat oriented to details regarding his hospital stay. Speech is garbled and he does seem to have a hard time forming his words. Otherwise, tongue is midline. Uvula midline. No facial droop. Cranial nerves II through XII are grossly intact. No focal neuro-deficits. Negative modified Romberg/pronator drift. Downward Babinski. Skin: No obvious skin lesions or rashes Psych: Awake. Pleasant and cooperative today. Making jokes. Results & Data Results & Data ([facility]) Vital Signs (Past 12 Hours) Vital Signs Temp Pulse Resp BP BP Pulse Ox 08/27/21 08:09 36.7 C 83 16 135/87 95 08/27/21 07:44 36.6 C 82 18 127/77 96 Laboratory Results 08/22/21 09:42 08/22/21 09:42 PG Care Time/CCT Total # of Minutes Spent Total Time Spent with Patient: Total time spent is greater than 50% in coordination of care (as documented) at patient's floor/unit and/or counseling patient: Coding Level of Care Code 79020 Subseq Hosp Care Lvl 2 Diagnoses Encephalopathy G93.40 Alcohol withdrawal F10.239 UTI (urinary tract infection) N39.0 Urinary retention R33.9 Seizure R56.9 Alcoholic cerebellar degeneration F10.20; G31.2 Portal hypertension K76.6 Peripheral neuropathy G62.9 Coronary artery disease I25.10 Alcoholic cirrhosis K70.30 Anemia D64.9 Constipation K59.00 Subconjunctival hemorrhage H11.30
[2021-08-27] MEDS: MELATONIN 3 MG TAB PO SCH (21:11)
[2021-08-27] MEDS: TAMSULOSIN HCL 0.4 MG CAP PO SCH (21:12)
[2021-08-28] MEDS: LACTULOSE SYRUP 20 GM/30 ML UDC PO SCH (08:03)
[2021-08-28] MEDS: MAGNESIUM OXIDE 400 MG TAB PO SCH (08:06)
[2021-08-28] MEDS: lamoTRIgine 100 MG TAB PO SCH ×2 (08:06→20:45)
[2021-08-28] MEDS: allopurinoL 300 MG TAB PO SCH (08:06)
[2021-08-28] MEDS: SPIRONOLACTONE 25 MG TAB PO SCH (08:06)
[2021-08-28] MEDS: THIAMINE HCL 100 MG TAB PO SCH (08:07)
[2021-08-28] MEDS: rifAXIMin 550 MG TABLET PO SCH ×2 (08:07→20:48)
[2021-08-28] MEDS: PANTOprazole 40 MG TAB PO SCH ×2 (08:07→11:42)
[2021-08-28] MEDS: FOLIC ACID 1 MG TAB PO SCH (08:07)
[2021-08-28] MEDS: MULTIVITAMIN TAB PO SCH (08:07)
[2021-08-28] MEDS: QUEtiapine FUMARATE 25 MG TABLET PO SCH ×2 (08:07→20:47)
[2021-08-28] MEDS: METOPROLOL TARTRATE 25 MG TAB PO SCH ×2 (08:08→20:47)
[2021-08-28] MEDS: levETIRAcetam 250 MG TAB PO SCH ×2 (08:08→20:46)
--- NOTE | 2021-08-28 11:30 | Hospitalist Progress Note ---
Date of Service August 28, 2021 Assessment & Plan (1) Encephalopathy: Plan: seems to have good days and bad. Likely a result of prolonged ETOH withdrawal/Wernicke's. Uncertain if he will recover or have Korsakoff dementia MRI of the brain with and without contrast performed 08/17 and again 08/27: no acute findings noted Concern that current state may be permanent and may not return to his baseline mentation which was communicated to his Was agitated and combative upfront but no behaviors since 08/23 Started on Seroquel with up titration guided per psychiatry. Psych believes this may be prolonged delirium given his longstanding history of alcohol abuse and is hopeful this will continue to improve with time on high dose IV Thiamine for days with transition to 100mg orally for maintenance on 08/27 treated for UTI (Enterococcus faecalis) -- unlikely contributing to AMS as no change with successful Tx vitamin B12, vitamin D level, RPR, VBG, and ammonia level--> all WNL Overall, is showing slow but favorable response ST saw and recommending holding oral intake when somnolent and not safe to eat/aspiration precautions. Needs SNF with continued PT/OT/ST (2) Alcohol withdrawal: Plan: Completed Librium/Neurontin taper utilized Ativan upfront with AWSS monitorring Patient remains encephalopathic. Uncertain if this is secondary to prolonged withdrawal--> overall mentation slowly improving As noted, is on Thiamine, Folic Acid, and Multivitamin (3) UTI (urinary tract infection): Plan: Secondary to E. faecalis, sensitive to Ampicillin--completed full course of ampicillin (4) Urinary retention: Plan: Could be secondary to medications, especially hydroxyzine + UTI Hydroxyzine discontinued Started flomax 0.4mg HS Urine cx with E. faecalis --completed a full course of ampicillin Lam catheter removed. Patient is voiding/mostly incontinent. Unable to adequately measure a postvoid bladder scan but does not seem to be significantly retaining at this time (5) Seizure: Plan: Seizure subsequent to EtOH Withdrawal; Ethyl alcohol on admit 21.1, - CT-H without acute findings Pt reports last drink 1-2 days prior to admission, At least 8 beers daily usually Continue Keppra 750 mg p.o. twice daily Continue Lamictal 300 mg p.o. twice daily EEG with no evidence of occult seizure. Initial speech screen failed, NG placed for nutrition/meds. 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, uses 2 canes for mobility Thiamine and acute alcohol withdrawal management as previously noted Current baseline unclear at this point (7) Portal hypertension: Plan: Chronic EtOH use with associated alcohol-induced cirrhosis, portal hypertension, and esophageal varices On chronic Aldactone and Metoprolol (8) Peripheral neuropathy: Plan: Previously on Neurontin which has been stopped (9) Coronary artery disease: Plan: CAD and HTN was on ASA monotherapy, ASA monotherapy stopped due to thrombocytopenia, seizures, EtOH falls with concern for bleeding also on metoprolol tartrate which was uptitrated from 50mg to 75mg BID for better BP control (10) Alcoholic cirrhosis: Plan: Patient reported history of hepatitis C. Prior outpatient antibody tests negative HCV RNA Continue rifaximin, spironolactone 50 mg daily, Lasix 20 mg daily Continue thiamine supplementation US Liver without signs of hepatic masses. Cirrhosis appreciated. typically follows [place] [facility] EGD 08/11: Grade 1 varices in lower third of the esophagus ammonia 08/08 and 08/26 is normal. LFTs are slightly elevated but stable INR slightly elevated consistent with auto anticoagulation given his underlying cirrhosis (11) Anemia: Plan: Apparently was pancytopenic at some point during this hospitalization which was felt to be secondary to EtOH mediated marrow suppression no longer an issue, platelets and wbc count have normalized H&H stable (12) Constipation: Plan: Continue MiraLAX daily as needed Started on lactulose daily (especially in the setting of underlying cirrhosis. His ammonia level has not been elevated) Can utilize Dulcolax suppository as needed - moving his bowels (13) Subconjunctival hemorrhage: Plan: Noted to left eye Uncertain exact etiology as no recent seizure, no vomiting or coughing. will monitor Plan: Continue PT/OT. Rehab potential unknown at this point as he remains encephalopathic (baseline unknown). Uncertain if this will continue to clear or if this is perhaps his baseline All rehab facilities unable to take patient until he was without behaviors for >24 hoursno combative behaviors since the overnight hours of 08/23. Was told that [facility] will not accept him until participating more with therapy. Referrals being made to SNF Case management following Plan to be d/w Dr. Rodas. Admission and Anticipated Discharge Date Admission Date: August 04, 2021 Subjective Patient seen on daily rounds today. Awake today but not oriented to place or situation. Is oriented to self. Is picking at his gown today. Nursing staff reports he was somnolent this morning and not able to take his oral medications. They will reattempt when more awake. Otherwise, no complaints or concerns from staff. Patient is a limited historian today Review of Systems Review of Systems: Unobtainable today Physical Exam Physical Exam: General: Resting comfortably in his hospital bed. Awake, pulling at hospital gown and continues to attempt to sit up. Speech garbled HEENT: Head is AT/NC. Buccal mucosa is moist and pink. Improving subconjunctival hemorrhage on the left Neck: No JVD. Negative hepatojugular reflex Cardiac: RRR without M/G/R Lungs: CTA without W/R/R Abdomen: Normoactive X4. Soft and nontender in all quadrants. Extremities: No peripheral clubbing cyanosis or edema Neuro: Awake. Oriented to self. Is oriented to the year but not the month. Today is not oriented to place (although he was yesterday). Speech garbled Skin: No obvious skin lesions or rashes Psych: Awake. Results & Data Results & Data ([facility]) Vital Signs (Past 12 Hours) Vital Signs Temp Pulse Resp BP Pulse Ox 08/28/21 07:53 37.0 C 72 16 126/65 95 Laboratory Results no lab data today PG Care Time/CCT Total # of Minutes Spent Total Time Spent with Patient: Total time spent is greater than 50% in coordination of care (as documented) at patient's floor/unit and/or counseling patient: Coding Level of Care Code 81828 Subseq Hosp Care Lvl 1 Diagnoses Encephalopathy G93.40 Alcohol withdrawal F10.239 UTI (urinary tract infection) N39.0 Urinary retention R33.9 Seizure R56.9 Alcoholic cerebellar degeneration F10.20; G31.2 Portal hypertension K76.6 Peripheral neuropathy G62.9 Coronary artery disease I25.10 Alcoholic cirrhosis K70.30 Anemia D64.9 Constipation K59.00 Subconjunctival hemorrhage H11.30
[2021-08-28] MEDS: MELATONIN 3 MG TAB PO SCH (20:47)
[2021-08-28] MEDS: TAMSULOSIN HCL 0.4 MG CAP PO SCH (20:48)
[2021-08-29] MEDS: METOPROLOL TARTRATE 25 MG TAB PO SCH ×2 (09:05→21:47)
[2021-08-29] MEDS: THIAMINE HCL 100 MG TAB PO SCH (09:05)
[2021-08-29] MEDS: allopurinoL 300 MG TAB PO SCH (09:05)
[2021-08-29] MEDS: MULTIVITAMIN TAB PO SCH (09:05)
[2021-08-29] MEDS: SPIRONOLACTONE 25 MG TAB PO SCH (09:05)
[2021-08-29] MEDS: LACTULOSE SYRUP 20 GM/30 ML UDC PO SCH (09:05)
[2021-08-29] MEDS: rifAXIMin 550 MG TABLET PO SCH ×2 (09:05→21:49)
[2021-08-29] MEDS: PANTOprazole 40 MG TAB PO SCH (09:05)
[2021-08-29] MEDS: FOLIC ACID 1 MG TAB PO SCH (09:05)
[2021-08-29] MEDS: MAGNESIUM OXIDE 400 MG TAB PO SCH (09:05)
[2021-08-29] MEDS: QUEtiapine FUMARATE 25 MG TABLET PO SCH ×2 (09:05→21:48)
[2021-08-29] MEDS: levETIRAcetam 250 MG TAB PO SCH ×2 (09:06→21:46)
[2021-08-29] MEDS: lamoTRIgine 100 MG TAB PO SCH ×2 (09:06→21:46)
--- NOTE | 2021-08-29 14:36 | Hospitalist Progress Note ---
Date of Service August 29, 2021 Assessment & Plan (1) Encephalopathy: Plan: seems to have good days and bad. Likely a result of prolonged ETOH withdrawal/Wernicke's. Uncertain if he will recover or have Korsakoff dementia MRI of the brain with and without contrast performed 08/17 and again 08/27: no acute findings noted Concern that current state may be permanent and may not return to his baseline mentation which was communicated to his Was agitated and combative upfront but no behaviors since 08/23 Started on Seroquel with up titration guided per psychiatry. Psych believes this may be prolonged delirium given his longstanding history of alcohol abuse and is hopeful this will continue to improve with time on high dose IV Thiamine for days with transition to 100mg orally for maintenance on 08/27 treated for UTI (Enterococcus faecalis) -- unlikely contributing to AMS as no change with successful Tx vitamin B12, vitamin D level, RPR, VBG, and ammonia level--> all WNL Overall, is showing slow but favorable response ST saw and recommending holding oral intake when somnolent and not safe to eat/aspiration precautions. Needs SNF with continued PT/OT/ST (2) Alcohol withdrawal: Plan: Completed Librium/Neurontin taper utilized Ativan upfront with AWSS monitorring Patient remains encephalopathic. Uncertain if this is secondary to prolonged withdrawal--> overall mentation slowly improving As noted, is on Thiamine, Folic Acid, and Multivitamin (3) UTI (urinary tract infection): Plan: Secondary to E. faecalis, sensitive to Ampicillin--completed full course of ampicillin (4) Urinary retention: Plan: Could be secondary to medications, especially hydroxyzine + UTI Hydroxyzine discontinued Started flomax 0.4mg HS Urine cx with E. faecalis --completed a full course of ampicillin Lam catheter removed. Patient is voiding/mostly incontinent. Unable to adequately measure a postvoid bladder scan but does not seem to be significantly retaining at this time (5) Seizure: Plan: Seizure subsequent to EtOH Withdrawal; Ethyl alcohol on admit 21.1, - CT-H without acute findings Pt reports last drink 1-2 days prior to admission, At least 8 beers daily usually Continue Keppra 750 mg p.o. twice daily Continue Lamictal 300 mg p.o. twice daily EEG with no evidence of occult seizure. Initial speech screen failed, NG placed for nutrition/meds. 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, uses 2 canes for mobility Thiamine and acute alcohol withdrawal management as previously noted Current baseline unclear at this point (7) Portal hypertension: Plan: Chronic EtOH use with associated alcohol-induced cirrhosis, portal hypertension, and esophageal varices On chronic Aldactone and Metoprolol (8) Peripheral neuropathy: Plan: Previously on Neurontin which has been stopped (9) Coronary artery disease: Plan: CAD and HTN was on ASA monotherapy, ASA monotherapy stopped due to thrombocytopenia, seizures, EtOH falls with concern for bleeding also on metoprolol tartrate which was uptitrated from 50mg to 75mg BID for better BP control (10) Alcoholic cirrhosis: Plan: Patient reported history of hepatitis C. Prior outpatient antibody tests negative HCV RNA Continue rifaximin, spironolactone 50 mg daily, Lasix 20 mg daily Continue thiamine supplementation US Liver without signs of hepatic masses. Cirrhosis appreciated. typically follows [facility] EGD 08/11: Grade 1 varices in lower third of the esophagus ammonia 08/08 and 08/26 is normal. LFTs are slightly elevated but stable INR slightly elevated consistent with auto anticoagulation given his underlying cirrhosis (11) Anemia: Plan: Apparently was pancytopenic at some point during this hospitalization which was felt to be secondary to EtOH mediated marrow suppression no longer an issue, platelets and wbc count have normalized H&H stable (12) Constipation: Plan: Continue MiraLAX daily as needed Started on lactulose daily (especially in the setting of underlying cirrhosis. His ammonia level has not been elevated) Can utilize Dulcolax suppository as needed moving his bowels (13) Subconjunctival hemorrhage: Plan: Noted to left eye Uncertain exact etiology as no recent seizure, no vomiting or coughing. will monitor Plan: Continue PT/OT. Rehab potential unknown at this point as he remains encephalopathic (baseline unknown). Uncertain if this will continue to clear or if this is perhaps his baseline All rehab facilities unable to take patient until he was without behaviors for >24 hoursno combative behaviors since the overnight hours of 08/23. Was told that [facility] will not accept him until participating more with therapy. Referrals being made to SNF Case management following Plan d/w Dr. Weir Admission and Anticipated Discharge Date Admission Date: August 04, 2021 Subjective Patient seen on daily rounds today. Talkative but speech remains garbled. Vocalizes no significant complaints or concerns. Nursing voices no complaints or concerns. Therapy attempted to work with patient however patient was unable to participate. Review of Systems Review of Systems: Unobtainable today Physical Exam Physical Exam: General: Resting comfortably in his hospital bed. Awake, pulling at hospital gown and continues to attempt to sit up. Speech garbled HEENT: Head is AT/NC. Buccal mucosa is moist and pink. Improving subconjunctival hemorrhage on the left Neck: No JVD. Negative hepatojugular reflex Cardiac: RRR without M/G/R Lungs: CTA without W/R/R Abdomen: Normoactive X4. Soft and nontender in all quadrants. Extremities: No peripheral clubbing cyanosis or edema Neuro: Awake. Oriented to self, place and time. Not oriented to situation. Speech garbled/indiscernible at times Skin: No obvious skin lesions or rashes Psych: Awake. Results & Data Results & Data ([facility]) Vital Signs (Past 12 Hours) Vital Signs Temp Pulse Resp BP Pulse Ox 08/29/21 09:04 91 H 108/64 96 08/29/21 07:15 36.8 C 80 16 128/78 95 Laboratory Results No lab data today PG Care Time/CCT Total # of Minutes Spent Total Time Spent with Patient: Total time spent is greater than 50% in coordination of care (as documented) at patient's floor/unit and/or counseling patient: Coding Level of Care Code 77360 Subseq Hosp Care Lvl 1 Diagnoses Encephalopathy G93.40 Alcohol withdrawal F10.239 UTI (urinary tract infection) N39.0 Urinary retention R33.9 Seizure R56.9 Alcoholic cerebellar degeneration F10.20; G31.2 Portal hypertension K76.6 Peripheral neuropathy G62.9 Coronary artery disease I25.10 Alcoholic cirrhosis K70.30 Anemia D64.9 Constipation K59.00 Subconjunctival hemorrhage H11.30
[2021-08-29] MEDS: MELATONIN 3 MG TAB PO SCH (21:47)
[2021-08-29] MEDS: TAMSULOSIN HCL 0.4 MG CAP PO SCH (21:48)
[2021-08-30 06:55] LABS: Hematocrit (blood only) 35.6 % (42-52); Hemoglobin 12.2 g/dL (14.0-18.0); Mean Corpuscular Hemoglobin 35.6 pg (25-34); Mean Corpuscular Hgb Conc 34.3 g/dL (32-36); Mean Corpuscular Volume 103.8 fL (80-100); RDW Coefficient of Variation 13.7 % (11.5-14.5); RDW Standard Deviation 51.1 fL (36.4-46.3); Red Blood Count 3.43 M/uL (4.7-6.1); White Blood Count 4.61 K/uL (4.8-10.8)
[2021-08-30 06:59] LABS: INR 1.3 (0.9-1.1)
[2021-08-30 07:13] LABS: Albumin Globulin Ratio 0.7 (0.9-2); Albumin Level 2.8 gm/dl (3.4-5.0); BUN Creatinine Ratio 10.3 (10-20); Bilirubin,Total 1.6 mg/dl (0.2-1.0); Calcium 8.4 mg/dl (8.5-10.1); Creatinine Clr Calc Pharmacy 123.8 ml/min; Est GFR (African American) 115.3 ml/min; Est GFR (Non-African American) 99.5 ml/min; Globulin 3.8 gm/dl (2.5-4.0); Magnesium 1.7 mg/dl (1.7-2.4); Potassium 2.9 mmol/L (3.5-5.1); Total Protein 6.6 gm/dl (6.0-8.3)
[2021-08-30 07:24] LABS: Mean Platelet Volume 10.5 fL (7.4-10.4); Platelet Count 90 K/uL (130-400)
[2021-08-30 08:03] LABS: Basophils # (auto) 0.04 K/uL (0-0.2); Basophils % (auto) 0.9 %; Eosinophils # (auto) 0.17 K/uL (0-0.5); Eosinophils % (auto) 3.7 %; Immature Granulocytes # (auto) 0.01 K/uL (0.00-0.02); Immature Granulocytes % (auto) 0.2 %; Lymphocytes # (auto) 0.89 K/uL (1.2-3.4); Lymphocytes % (auto) 19.3 %; Monocytes # (auto) 0.51 K/uL (0.11-0.59); Monocytes % (auto) 11.1 %; Neutrophils # (auto) 2.99 K/uL (1.4-6.5); Neutrophils % (auto) 64.8 %
[2021-08-30] MEDS: FOLIC ACID 1 MG TAB PO SCH (09:16)
[2021-08-30] MEDS: PANTOprazole 40 MG TAB PO SCH (09:16)
[2021-08-30] MEDS: MULTIVITAMIN TAB PO SCH (09:16)
[2021-08-30] MEDS: METOPROLOL TARTRATE 25 MG TAB PO SCH (09:16)
[2021-08-30] MEDS: LACTULOSE SYRUP 20 GM/30 ML UDC PO SCH (09:16)
[2021-08-30] MEDS: levETIRAcetam 250 MG TAB PO SCH (09:16)
[2021-08-30] MEDS: rifAXIMin 550 MG TABLET PO SCH (09:16)
[2021-08-30] MEDS: SPIRONOLACTONE 25 MG TAB PO SCH (09:16)
[2021-08-30] MEDS: MAGNESIUM OXIDE 400 MG TAB PO SCH (09:16)
[2021-08-30] MEDS: lamoTRIgine 100 MG TAB PO SCH (09:16)
[2021-08-30] MEDS: POTASSIUM CHLORIDE 20 MEQ/15 ML UDC PO SCH ×2 (09:16→13:35)
[2021-08-30] MEDS: QUEtiapine FUMARATE 25 MG TABLET PO SCH (09:16)
[2021-08-30] MEDS: allopurinoL 300 MG TAB PO SCH (09:17)
[2021-08-30] MEDS: THIAMINE HCL 100 MG TAB PO SCH (09:17)
--- NOTE | 2021-08-30 12:49 | Psychiatric Progress Note ---
Date of Service August 30, 2021 Impression / Recommendations Impression 56 yo man with history of TBI and chronic prefrontal lobe changes, severe alcohol use disorder and seizure disorder admitted medically for alcohol withdrawal and now with ongoing confusion even with completion of benzo taper. Diagnostically consistent with encephalopathy/delirium which seems to be varying between hyperactive and hypoactive delirium states. 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 08/30/21: Some improvement in delirium, more spontaneous speech and more consistently awake and alert though remains difficult to understand and oriented only to self. No recent episodes of agitation with seroquel BID and no apparent side effects. Continue with BID seroquel, if agitation re-occurs could add afternoon dose of 12.5 mg scheduled or prn. (1) Encephalopathy: (2) Alcohol use disorder, severe, dependence: (3) UTI (urinary tract infection): (4) Seizure disorder: (5) Alcoholic cirrhosis: -seroquel 25mg BID scheduled to address delirium (if agitation re-occurs may add additional 12.5 mg dose scheduled or prn in afternoon as this tends to be worse time of day), would check EKG QTc routinely but QTc per last EKG is stable and <500ms, can slightly reduce seizure threshold but he is on keppra and lamictal and has been stable in this regard -melatonin 3mg qhs -Continue with delirium prevention measures -For behavioral emergency: olanzapine 2.5 mg IM x 1 (DO NOT exceed 10mg per 24 hours, check EKG if IM dose required, NEVER co-administer with IM or IV benzodiazepines). Interval History Identifying Information 56 yo man with history of TBI at age 16, alcohol use disorder severe with medical sequelae of cerebellar ataxia/neuropathy/esophageal varices/cirrhosis and seizure disorder on keppra and lamictal admitted medically for alcohol withdrawal and seizure in this context. Psychiatry consulted for delirium management. Chief Complaint "I don't have the number". Review of Systems Notes appears to be eating well, sleep is disrupted but less sleepy during the day Subjective Subjective Patient was seen & assessed and interval progress reviewed. Sitting up in bed, cooperative and pleasant with interaction but difficult to understand his responses. Seems he was maybe discussing calling his . Watching TV. oriented only to self. Physical Exam Psychiatric Orientation: alert; + not oriented to person, + not oriented to place and + not oriented to time Apperance: appropriately dressed and appropriately groomed Eye Contact: good eye contact Motor Behavior: no abnormal motor movements Speech: + abnormal rate/rhythm/volume of speech (difficult to understand) Affect: euthymic affect Thought Process: + looseness of associations Hallucinations: no auditory hallucinations (does not appear to be responding ) and no visual hallucinations Cognition: attention grossly intact; + recent memory not intact, + remote memory not intact and + language not intact Insight: + impaired insight Judgement: + impaired judgement Vital Signs (Past 24 Hours) Last Vital Signs Temp 36.7 C 08/30/21 08:34 Pulse 72 08/30/21 08:34 Resp 16 08/30/21 08:34 BP 109/70 08/30/21 08:34 Pulse Ox 94 08/30/21 08:34 Results & Data ([facility]) Laboratory Results Laboratory Results - last 24 hr 08/30/21 08/30/21 08/30/21 06:30 06:30 06:30 WBC 4.61 L RBC 3.43 L Hgb 12.2 L Hct 35.6 L MCV 103.8 H MCH 35.6 H MCHC 34.3 RDW Std Deviation 51.1 H RDW Coeff of Mindy 13.7 Plt Count 90 L MPV 10.5 H Immature Gran % (Auto) 0.2 Neut % (Auto) 64.8 Lymph % (Auto) 19.3 [place] % (Auto) 11.1 Eos % (Auto) 3.7 Baso % (Auto) 0.9 Neut # (Auto) 2.99 Lymph # (Auto) 0.89 L [place] # (Auto) 0.51 Eos # (Auto) 0.17 Baso # (Auto) 0.04 Immature Gran # (Auto) 0.01 PT 14.0 H INR 1.3 H Sodium 139 Potassium 2.9 L Chloride 102 Carbon Dioxide 30 Anion Gap 7 BUN 8 Creatinine 0.78 Est Cr Clr Drug Dosing 123.8 Est GFR ( Amer) 115.3 Est GFR (Non-Af Amer) 99.5 BUN/Creatinine Ratio 10.3 Glucose 86 Calcium 8.4 L Magnesium 1.7 Total Bilirubin 1.6 H AST 49 H ALT 19 Alkaline Phosphatase 132 H Total Protein 6.6 Albumin 2.8 L Globulin 3.8 Albumin/Globulin Ratio 0.7 L Current Inpatient Medications Current Inpatient Medications: Current Inpatient Medications Allopurinol (Allopurinol 300 Mg Tab) 300 mg PO DAILY MISTY Stop: 09/04/21 08:59 Last Admin: 08/30/21 09:17 Dose: 300 mg Documented by: Folic Acid (Folic Acid 1 Mg Tab) 1 mg PO DAILY MISTY Stop: 09/04/21 08:59 Last Admin: 08/30/21 09:16 Dose: 1 mg Documented by: Haloperidol Lactate (Haloperidol Lactate 5 Mg/Ml 1 Ml Vial) 5 mg IM Q6H PRN PRN Reason: Agitation Stop: 09/22/21 10:54 Hydralazine HCl (Hydralazine Hcl 20 Mg/Ml Vial) 10 mg IV Q6H PRN PRN Reason: sbp>170 or dbp>100 Stop: 09/21/21 17:14 Lactulose (Lactulose Syrup 20 Gm/30 Ml Udc) 20 gm PO DAILY MISTY Stop: 09/25/21 08:59 Last Admin: 08/30/21 09:16 Dose: 20 gm Documented by: Lamotrigine (Lamotrigine 100 Mg Tab) 300 mg PO BID MISTY Stop: 09/03/21 20:59 Last Admin: 08/30/21 09:16 Dose: 300 mg Documented by: Levetiracetam (Levetiracetam 250 Mg Tab) 750 mg PO BID MISTY Stop: 09/16/21 20:59 Last Admin: 08/30/21 09:16 Dose: 750 mg Documented by: Magnesium Oxide (Magnesium Oxide 400 Mg Tab) 400 mg PO QAM MISTY Stop: 09/03/21 10:44 Last Admin: 08/30/21 09:16 Dose: 400 mg Documented by: Melatonin (Melatonin 3 Mg Tab) 3 mg PO HS MISTY Stop: 09/22/21 20:59 Last Admin: 08/29/21 21:47 Dose: 3 mg Documented by: Metoprolol Tartrate (Metoprolol Tartrate 25 Mg Tab) 75 mg PO BID MISTY Stop: 09/15/21 20:59 Last Admin: 08/30/21 09:16 Dose: 75 mg Documented by: Multivitamins (Multivitamin Tab) 1 tab PO QAM MISTY Stop: 09/06/21 10:59 Last Admin: 08/30/21 09:16 Dose: 1 tab Documented by: Pantoprazole Sodium (Pantoprazole 40 Mg Tab) 40 mg PO DAILY MISTY Stop: 09/04/21 08:59 Last Admin: 08/30/21 09:16 Dose: 40 mg Documented by: Polyethylene Glycol (Polyethylene (Miralax) 17 Gm Pack) 17 gm PO DAILY PRN PRN Reason: Constipation Stop: 09/03/21 12:29 Potassium Chloride (Potassium Chloride 20 Meq/15 Ml Udc) 40 meq PO Q6H MISTY Stop: 08/30/21 14:01 Last Admin: 08/30/21 09:16 Dose: 40 meq Documented by: Quetiapine Fumarate (Quetiapine Fumarate 25 Mg Tablet) 25 mg PO BID MISTY Stop: 09/22/21 12:59 Last Admin: 08/30/21 09:16 Dose: 25 mg Documented by: Rifaximin (Rifaximin 550 Mg Tablet) 550 mg PO BID MISTY Stop: 09/03/21 20:59 Last Admin: 08/30/21 09:16 Dose: 550 mg Documented by: Spironolactone (Spironolactone 25 Mg Tab) 50 mg PO DAILY MISTY Stop: 09/04/21 08:59 Last Admin: 08/30/21 09:16 Dose: 50 mg Documented by: Tamsulosin HCl (Tamsulosin Hcl 0.4 Mg Cap) 0.4 mg PO HS MISTY Stop: 09/17/21 20:59 Last Admin: 08/29/21 21:48 Dose: 0.4 mg Documented by: Thiamine HCl (Thiamine Hcl 100 Mg Tab) 100 mg PO QAM MISTY Stop: 09/26/21 08:59 Last Admin: 08/30/21 09:17 Dose: 100 mg Documented by:
--- NOTE | 2021-08-30 13:31 | Hospitalist Progress Note ---
Date of Service August 30, 2021 Assessment & Plan (1) Encephalopathy: Plan: Has waxed and waned throughout hospitalization-likely secondary a result of prolonged ETOH withdrawal/Wernicke's. Uncertain if he will recover or have Korsakoff dementia MRI of the brain with and without contrast performed 08/17 and again 08/27: no acute findings noted Concern that current state may be permanent and may not return to his baseline mentation which was communicated to his Was agitated and combative upfront but no behaviors since 08/23 Started on Seroquel with up titration guided per psychiatry. Psych believes this may be prolonged delirium given his longstanding history of alcohol abuse and is hopeful this will continue to improve with time on high dose IV Thiamine for days with transition to 100mg orally for maintenance on 08/27 treated for UTI (Enterococcus faecalis) -- unlikely contributing to AMS as no change with successful Tx vitamin B12, vitamin D level, RPR, VBG, and ammonia level--> all WNL Overall, is showing slow but favorable response ST saw and recommending holding oral intake when somnolent and not safe to eat/aspiration precautions. Needs rehab with continued PT/OT/ST DRAMATIC improvement today, pt awake/alert, oriented x2, able to follow commands and feed himself (2) Alcohol withdrawal: Plan: Completed Librium/Neurontin taper utilized Ativan upfront with AWSS monitorring Patient remains encephalopathic. Uncertain if this is secondary to prolonged withdrawal--> overall mentation slowly improving As noted, is on Thiamine, Folic Acid, and Multivitamin (3) UTI (urinary tract infection): Plan: Secondary to E. faecalis, sensitive to Ampicillin--completed full course of ampicillin (4) Urinary retention: Plan: Could be secondary to medications, especially hydroxyzine + UTI Hydroxyzine discontinued Started flomax 0.4mg HS Urine cx with E. faecalis --completed a full course of ampicillin Gomez catheter removed. Patient is voiding/mostly incontinent. Unable to adequately measure a postvoid bladder scan but does not seem to be significantly retaining at this time (5) Seizure: Plan: Seizure subsequent to EtOH Withdrawal; Ethyl alcohol on admit 21.1, - CT-H without acute findings Pt reports last drink 1-2 days prior to admission, At least 8 beers daily usually Continue Keppra 750 mg p.o. twice daily Continue Lamictal 300 mg p.o. twice daily EEG with no evidence of occult seizure. Initial speech screen failed, NG placed for nutrition/meds. 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, uses 2 canes for mobility Thiamine and acute alcohol withdrawal management as previously noted Current baseline unclear at this point (7) Portal hypertension: Plan: Chronic EtOH use with associated alcohol-induced cirrhosis, portal hypertension, and esophageal varices On chronic Aldactone and Metoprolol (8) Peripheral neuropathy: Plan: Previously on Neurontin which has been stopped (9) Coronary artery disease: Plan: CAD and HTN was on ASA monotherapy, ASA monotherapy stopped due to thrombocytopenia, seizures, EtOH falls with concern for bleeding also on metoprolol tartrate which was uptitrated from 50mg to 75mg BID for better BP control (10) Alcoholic cirrhosis: Plan: Patient reported history of hepatitis C. Prior outpatient antibody tests negative HCV RNA Continue rifaximin, spironolactone 50 mg daily, Lasix 20 mg daily Continue thiamine supplementation US Liver without signs of hepatic masses. Cirrhosis appreciated. typically follows [place] hepatology EGD 08/11: Grade 1 varices in lower third of the esophagus ammonia 08/08 and 08/26 is normal. LFTs are slightly elevated but stable INR slightly elevated consistent with auto anticoagulation given his underlying cirrhosis platelet count this AM 90, not on Lovenox, likely d/t his ETOH-induced liver disease, will monitor (11) Anemia: Plan: Apparently was pancytopenic at some point during this hospitalization which was felt to be secondary to EtOH mediated marrow suppression no longer an issue, platelets and wbc count have normalized H&H stable (12) Constipation: Plan: Continue MiraLAX daily as needed Started on lactulose daily (especially in the setting of underlying cirrhosis. His ammonia level has not been elevated) Can utilize Dulcolax suppository as needed moving his bowels (13) Subconjunctival hemorrhage: Plan: Noted to left eye Uncertain exact etiology as no recent seizure, no vomiting or coughing. will monitor Plan: Continue PT/OT. All rehab facilities unable to take patient until he was without behaviors for >24 hoursno combative behaviors since the overnight hours of 6/2. Was told that [facility] will not accept him until participating more with therapy. Referrals being made to SNF. However, apparently [facility] has reached back out about taking patient. Case management following Medically, pt is cleared for d/c once a facility has accepted him Provided update to patient's , Bárbara, via phone on 08/30 Plan d/w Dr. Weir Admission and Anticipated Discharge Date Admission Date: August 04, 2021 Subjective Patient seen on daily rounds today. He is awake, alert, conversing. He is able to tell me his name, , and year. He is able to answer questions appropriately and follow simple commands. He was also able to feed himself while I was in the room. Review of Systems Review of Systems: All systems reviewed and are unremarkable except as noted in HPI and below. Denies fever, chills, fatigue, headache, nasal congestion, sore throat, cough, c hest pain, shortness of breath, palpitations, orthopnea, PND, abdominal pain, n/v/d, constipation, dysuria, hematuria, frequency, back pain, joint pain or swelling, easy bruising or bleeding, skin lesions or rashes. Physical Exam Physical Exam: GENERAL: 56 yo Well-developed, well-nourished WM. NAD. LUNGS: Clear to auscultation bilaterally. CARDIOVASCULAR: Regular rate and rhythm. No M/G/R. ABDOMEN: Soft, non-tender and non-distended. BS normal x 4 quad. : gomez in place, urine dark xi EXTREMITIES: No edema. Non-tender. Peripheral pulses +2/4. NEUROLOGIC: Awake, alert, oriented x2. No gross focal neuro deficits. PSYCHIATRIC: Cooperative. Pleasant mood. SKIN: Scattered ecchymosis and abrasions on all extremities. Results & Data Results & Data ([facility]) Vital Signs (Past 12 Hours) Vital Signs Temp Pulse Resp BP Pulse Ox 08/30/21 08:34 36.7 C 72 16 109/70 94 Laboratory Results 08/30/21 06:30 08/30/21 06:30 PG Care Time/CCT Total # of Minutes Spent Total Time Spent with Patient: Total time spent is greater than 50% in coordination of care (as documented) at patient's floor/unit and/or counseling patient: Coding Level of Care Code 33567 Subseq Hosp Care Lvl 2 Diagnoses Encephalopathy G93.40 Alcohol withdrawal F10.239 UTI (urinary tract infection) N39.0 Urinary retention R33.9 Seizure R56.9 Alcoholic cerebellar degeneration F10.20; G31.2 Portal hypertension K76.6 Peripheral neuropathy G62.9 Coronary artery disease I25.10 Alcoholic cirrhosis K70.30 Anemia D64.9 Constipation K59.00 Subconjunctival hemorrhage H11.30
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
== END 2021-08-30 15:23 | DRG 896 ==
LOC: ED 07:03 → SUATTDRO 10:29 → 2S 10:29 → 1E 08-06 13:38 → 2S 08-09 15:50 → 3E 08-11 16:13

== ENCOUNTER 2022-01-29 18:00 | Inpatient (IN) ==
--- NOTE | 2022-01-29 18:22 | Emergency Department Note ---
History of Present Illness General Chief Complaint: Seizure Stated Complaint: SEIZURE, UNRESPONESIVE Time Seen by Provider: 01/29/22 18:11 Source: patient and EMS History of Present Illness Provider Complaint: + seizure Onset (ago): 4 hour(s) Description of Episode: + loss of consciousness and + tonic-clonic movement Witnessed: + yes - by bystander and + yes - by EMS Trauma: Yes Seizure History: + known seizure disorder and + history of withdrawal seizures Place: + home Possible Precipitating Event: + alcohol withdrawal HPI Narrative: 56-year-old male presents emergency department via EMS. Per EMS the patient has been having recurrent falls and had a seizure a few weeks ago. EMS reports that the patient fell today at about 1635 and had a seizure lasting approximately 5 minutes. Per EMS the family stated that he was unresponsive and they did CPR on him until he got a response. EMS arrived and states that the patient had 2 additional tonic-clonic seizures the first 1 lasting 1 to 2 minutes, 2 mg of Versed were given 5 minutes later a second seizure occurred which lasted approximately 1 minute resolved with 2 mg of Versed also. Patient states he last drank alcohol yesterday. Home Medications Medication Instructions Recorded Confirmed Type folic acid 1 mg tablet 1 mg PO DAILY #90 tabs 01/30/21 01/29/22 Rx rifaximin 550 mg tablet (Xifaxan) 550 mg PO BID #60 tabs 01/30/21 01/29/22 Rx allopurinol 300 mg tablet 300 mg PO DAILY #90 tabs 02/23/21 01/29/22 Rx spironolactone 50 mg tablet 50 mg PO DAILY #90 tabs 04/16/21 01/29/22 Rx lactulose 20 gram/30 mL oral 30 ml PO DAILY #900 mL 08/30/21 01/29/22 Rx solution multivitamin with folic acid 400 1 tab PO QAM #30 tabs 08/30/21 01/29/22 Rx mcg tablet (Daily-Ellie (with folic acid)) acetaminophen 325 mg tablet 650 mg PO Q4H PRN Pain (Scale 09/06/21 01/29/22 History (Tylenol) Score 1-3) bisacodyl 10 mg rectal suppository [address] DAILY PRN Constipation 09/06/21 01/29/22 History cyanocobalamin (vitamin B-12) 250 250 mcg PO DAILY 09/06/21 01/29/22 History mcg tablet (Vitamin B-12) polyethylene glycol 3350 17 17 g PO QDL PRN Constipation 09/06/21 01/29/22 History gram/dose oral powder (Miralax) sennosides 8.6 mg-docusate sodium 1 tab-cap PO QDL PRN Constipation 09/06/21 01/29/22 History 50 mg tablet (Senokot-S) sodium phosphates 19 gram-[address] DAILY PRN Constipation 09/06/21 01/29/22 History gram/118 mL enema (Fleet Enema) magnesium hydroxide 400 mg/5 mL 30 ml PO DAILY PRN Constipation 12/06/21 01/29/22 Rx oral suspension (Milk of Magnesia) #355 mL metoprolol tartrate 75 mg tablet 75 mg PO BID #180 tabs 12/06/21 01/29/22 Rx quetiapine 25 mg tablet (Seroquel) 25 mg PO HS #90 tabs 12/06/21 01/29/22 Rx thiamine HCl (vitamin B1) 100 mg 100 mg PO DAILY #90 tabs 12/06/21 01/29/22 Rx tablet (Vitamin B-1) lamotrigine 150 mg tablet 300 mg PO BID 30 days #120 tabs 12/27/21 01/29/22 Rx levetiracetam 1,000 mg tablet 1,000 mg PO BID #60 tabs 12/27/21 01/29/22 Rx (Keppra) levetiracetam 250 mg tablet 250 mg PO BID #60 tabs 12/27/21 01/29/22 Rx magnesium oxide 400 mg (241.3 mg 400 mg PO BID #60 tabs 01/02/22 01/29/22 Rx magnesium) tablet tamsulosin 0.4 mg capsule 0.4 mg PO HS #90 caps 01/02/22 01/29/22 Rx melatonin 3 mg tablet 3 mg PO HS #90 tabs 01/04/22 01/29/22 Rx rimegepant 75 mg disintegrating 75 mg PO DIRECTED PRN HEADACHES 01/29/22 01/29/22 History tablet (Nurtec ODT) Allergies Allergy/AdvReac Type Severity Reaction Status Date / Time No Known Allergies Allergy Verified 01/29/22 19:15 Past Med/Surg History Medical History Alcoholic cerebellar degeneration Alcoholic cirrhosis Anemia Chronic venous insufficiency Coronary artery disease Esophageal varices Gout History of kidney stones Hypertension Left knee DJD Osteoarthritis of right knee Peripheral neuropathy Portal hypertension Right knee DJD Seizure disorder (01/04/13) Situational depression Tremor Surgical History History of anesthesia reaction "was out strong enough for scope to go down, still had gag reflux" History of colonoscopy History of cystoscopy History of esophagogastroduodenoscopy (EGD) History of fracture of skull REPAIR SKULL-NO PLATE History of umbilical hernia repair History of varicose vein ligation and stripping BILAT Family History Father Family history of diabetes mellitus Cardiac disorder Mother Family history of diabetes mellitus Gout Sister Family history of diabetes mellitus Other No family history of adverse response to anesthesia Social History Smoking Status: Former smoker Tobacco Type: Cigarettes Second Hand Exposure: Yes; Hx Alcohol Use: Yes Alcohol type: beer Hx Substance Use: No Preferred Language: Bahamian Communication Ability: Effective 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: No Beliefs That Will Affect Care: None Current Living Situation: Spouse Feels Safe at Home: Yes Safety Concerns Comment: Concerned about having seizures/falling when home alone Childhood Exposure to Second-Hand Smoke: Yes caffeine: No Assistive Devices: Brace/Splint/Immobilizer, Cane and Walker Review of Systems A total of 10 systems reviewed and were otherwise negative Physical Exam Vital Signs: Vital Signs - 24 hr 01/29/22 18:08 01/29/22 18:37 01/29/22 19:00 Temperature 36.4 C L Temperature Source Oral Pulse Rate 88 Pulse Rate [Apical ] 68 Pulse Rhythm Regular Pulse Rhythm [Apic al] Regular Pulse Strength Normal Pulse Strength [Ap ical] Respiratory Rate 12 14 Respiratory Effort / Characteristics Non-Labored Sponta neous Non-Labored Sponta neous Respiratory Depth Normal Normal Respiratory Patter n Blood Pressure 151/92 H Blood Pressure [Ri ght Arm] 153/80 H Blood Pressure Breana n 111 Blood Pressure Breana n [Right Arm] 104 Blood Pressure Pos ition [Right Arm] Pulse Oximetry 97 95 99 Oxygen Delivery Me thod Room Air Room Air Room Air Sepsis Recent Feve r Within 48 Hours No Sepsis New/Unexpla ined Change in Men dominick Status No Sepsis Action Take n by Nursing No Action Required 01/29/22 18:34 01/29/22 19:00 01/29/22 20:17 Temperature Temperature Source Pulse Rate 70 Pulse Rate [Apical ] 67 67 Pulse Rhythm Pulse Rhythm [Apic al] Regular Pulse Strength Pulse Strength [Ap ical] Normal Respiratory Rate 21 18 16 Respiratory Effort / Characteristics Non-Labored Sponta neous Non-Labored Respiratory Depth Normal Normal Respiratory Patter n Regular Blood Pressure 153/80 H Blood Pressure [Ri ght Arm] 147/87 H 128/72 Blood Pressure Breana n 104 Blood Pressure Breana n [Right Arm] 107 90 Blood Pressure Pos ition [Right Arm] Lying Pulse Oximetry 96 98 99 Oxygen Delivery Me thod Room Air Room Air Room Air Sepsis Recent Feve r Within 48 Hours Sepsis New/Unexpla ined Change in Men dominick Status Sepsis Action Take n by Nursing Physical Exam: Physical Exam GENERAL: He is oriented to person, place, and time. Patient slurring his words. HENT: Exam performed. - Head: Normocephalic and atraumatic. - Right Ear: External ear normal. No mastoid tenderness. - Left Ear: External ear normal. No mastoid tenderness. - Mouth/Throat: The oropharynx is clear and moist. No trismus in the jaw. No dental abscesses or uvula swelling. No oropharyngeal exudate or tonsillar abscesses. No evidence of tongue bite. EYES: Conjunctivae and EOM are normal. Pupils are equal, round, and reactive to light. Right eye exhibits no discharge. Left eye exhibits no discharge. No scleral icterus. NECK: Patient in c-collar. CV: Normal rate, regular rhythm, normal heart sounds and intact distal pulses. There is no peripheral edema. Palpable radial pulses bue. PULM/CHEST: Rhonchi bilaterally. ABD: The abdomen is soft. MUSC/SKEL: Pelvis stable. Right knee is in knee immobilizer. Left lower extremity has an IO placed by EMS. NEURO: GCS eye subscore is 4. GCS verbal subscore is 4. GCS motor subscore is 6. Course Course 1810: The patient was evaluated in room B1. A complete history and physical exam was performed Cardiac monitoring: An order was placed for continuous cardiac monitoring. The monitor shows a rate of 70 with sinus rhythm 1936: Family is now bedside. I asked the patient if he has been taking his Keppra and he states he is not sure and is not sure if he is supposed to take it in the morning or in the evening. Per the EMR the patient supposed to take the Keppra twice daily. The family states that the patient's has been out of town who usually gives his medications. It is presumed that the patient has not been taking his Keppra as directed patient be treated with IV Keppra in the emergency department. 2015: Vital signs stable. Labs within normal limits. Alcohol is less than 10. Imaging shows no traumatic injury. Patient will be admitted for alcohol withdrawal seizure and seizure. Dr. Mir [facility] hospitalist team notified. Administered Medications Discontinued Medications Levetiracetam 1,000 mg/ Sodium (Chloride) 110 mls @ 440 mls/hr IV NOW STA Stop: 01/29/22 19:49 Last Infusion: 01/29/22 20:34 Dose: 0 mls/hr Documented By: Admin: 01/29/22 20:17 Dose: 440 mls/hr Documented By: BALTAZAR Ioversol (Optiray 350 100ml) 94 ml IV ONCE ONE Stop: 01/29/22 18:54 Last Admin: 01/29/22 18:54 Dose: 94 ml Documented By: JOAQUIM Medical Decision Making Laboratory Data Result diagrams: 01/29/22 18:11 01/29/22 18:11 Lab Results 01/29/22 01/29/22 01/29/22 Range/Units 18:11 18:11 18:11 WBC 4.83 (4.8-10.8) K/ul RBC 4.09 L (4.63-6.08) M/uL Hgb 14.5 (14.0-18.0) g/dl POC Hgb (14.0-18.0) g/dl Hct 40.7 (40.1-51.0) % POC Hct (42-52) % MCV 99.5 (80.0-100.0) fL MCH 35.5 H (25.0-34.0) pg MCHC 35.6 (32.0-36.0) g/dL RDW Std Deviation 49.3 H (36.4-46.3) fL RDW Coeff of Mindy 13.5 (11.5-14.5) % Plt Count 87 L (130-400) K/uL MPV 9.6 (9.4-12.4) fL Immature Gran % (Auto) 0.2 % Neut % (Auto) 73.7 % Lymph % (Auto) 17.0 % Keith % (Auto) 7.9 % Eos % (Auto) 1.0 % Baso % (Auto) 0.2 % Neut # (Auto) 3.56 (1.4-6.5) K/uL Lymph # (Auto) 0.82 L (1.2-3.4) K/uL Keith # (Auto) 0.38 (0.24-0.82) K/uL Eos # (Auto) 0.05 (0-0.50) K/uL Baso # (Auto) 0.01 (0-0.2) K/uL Immature Gran # (Auto) 0.01 (0.00-0.02) K/uL Platelet Estimate Decreased L (Normal) PT (9.0-12.0) Seconds INR (0.9-1.1) APTT (21.0-31.0) Seconds PTT Ratio POC Sodium (135-144) mmol/L Sodium 137 (136-145) mmol/L POC Potassium (3.3-5.0) mmol/L Potassium 4.4 (3.5-5.1) mmol/L POC Chloride (101-112) mmol/L Chloride 100 (98-107) mmol/L Carbon Dioxide 30 (21-32) mmol/L POC Total CO2 (24-31) mmol/L Anion Gap 7 (3-11) POC Anion Gap (16-25) mmol/L POC BUN (7-18) mg/dl BUN 15 (6-23) mg/dl Creatinine 1.09 (0.6-1.4) mg/dl POC Creatinine (0.6-1.3) mg/dl Est Cr Clr Drug Dosing 94.4 ml/min Est GFR ( Amer) 86.3 ml/min Est GFR (Non-Af Amer) 74.4 ml/min BUN/Creatinine Ratio 13.8 (10-20) Glucose 81 (70-99(Fasting)) mg/dl POC Glucose 86 (70-99) mg/dl POC Glucose (other) (70-99) mg/dl Lactate (0.4-2.0) mmol/L Calcium 9.5 (8.5-10.1) mg/dl POC Ioniz Calcium Lotus (1.12-1.32) mmol/l Magnesium 2.1 (1.7-2.4) mg/dl Total Bilirubin 1.4 H (0.2-1.0) mg/dl Direct Bilirubin 0.3 H (0-0.2) mg/dl AST 52 H (13-39) U/L ALT 35 (7-52) U/L Alkaline Phosphatase 144 H (34-104) U/L Total Protein 8.1 (6.0-8.3) gm/dl Albumin 4.0 (3.4-5.0) gm/dl Lipase 33 (11-82) U/L Ethyl Alcohol mg/dL (<10.0) mg/dl SARS-CoV-2, RNA, NAAT (NEGATIVE) 01/29/22 01/29/22 01/29/22 Range/Units 18:11 18:11 18:14 WBC (4.8-10.8) K/ul RBC (4.63-6.08) M/uL Hgb (14.0-18.0) g/dl POC Hgb 14.6 (14.0-18.0) g/dl Hct (40.1-51.0) % POC Hct 43 (42-52) % MCV (80.0-100.0) fL MCH (25.0-34.0) pg MCHC (32.0-36.0) g/dL RDW Std Deviation (36.4-46.3) fL RDW Coeff of Mindy (11.5-14.5) % Plt Count (130-400) K/uL MPV (9.4-12.4) fL Immature Gran % (Auto) % Neut % (Auto) % Lymph % (Auto) % Keith % (Auto) % Eos % (Auto) % Baso % (Auto) % Neut # (Auto) (1.4-6.5) K/uL Lymph # (Auto) (1.2-3.4) K/uL Keith # (Auto) (0.24-0.82) K/uL Eos # (Auto) (0-0.50) K/uL Baso # (Auto) (0-0.2) K/uL Immature Gran # (Auto) (0.00-0.02) K/uL Platelet Estimate (Normal) PT 12.1 H (9.0-12.0) Seconds INR 1.1 (0.9-1.1) APTT 28.5 (21.0-31.0) Seconds PTT Ratio 1.0 POC Sodium 137 (135-144) mmol/L Sodium (136-145) mmol/L POC Potassium 4.4 (3.3-5.0) mmol/L Potassium (3.5-5.1) mmol/L POC Chloride 100 L (101-112) mmol/L Chloride (98-107) mmol/L Carbon Dioxide (21-32) mmol/L POC Total CO2 27 (24-31) mmol/L Anion Gap (3-11) POC Anion Gap 16.0 (16-25) mmol/L POC BUN 15 (7-18) mg/dl BUN (6-23) mg/dl Creatinine (0.6-1.4) mg/dl POC Creatinine 1.1 (0.6-1.3) mg/dl Est Cr Clr Drug Dosing ml/min Est GFR ( Amer) ml/min Est GFR (Non-Af Amer) ml/min BUN/Creatinine Ratio (10-20) Glucose (70-99(Fasting)) mg/dl POC Glucose (70-99) mg/dl POC Glucose (other) 81 (70-99) mg/dl Lactate (0.4-2.0) mmol/L Calcium (8.5-10.1) mg/dl POC Ioniz Calcium Lotus 1.16 (1.12-1.32) mmol/l Magnesium (1.7-2.4) mg/dl Total Bilirubin (0.2-1.0) mg/dl Direct Bilirubin (0-0.2) mg/dl AST (13-39) U/L ALT (7-52) U/L Alkaline Phosphatase (34-104) U/L Total Protein (6.0-8.3) gm/dl Albumin (3.4-5.0) gm/dl Lipase (11-82) U/L Ethyl Alcohol mg/dL < 10.0 (<10.0) mg/dl SARS-CoV-2, RNA, NAAT (NEGATIVE) 01/29/22 01/29/22 Range/Units 18:32 19:11 WBC (4.8-10.8) K/ul RBC (4.63-6.08) M/uL Hgb (14.0-18.0) g/dl POC Hgb (14.0-18.0) g/dl Hct (40.1-51.0) % POC Hct (42-52) % MCV (80.0-100.0) fL MCH (25.0-34.0) pg MCHC (32.0-36.0) g/dL RDW Std Deviation (36.4-46.3) fL RDW Coeff of Mindy (11.5-14.5) % Plt Count (130-400) K/uL MPV (9.4-12.4) fL Immature Gran % (Auto) % Neut % (Auto) % Lymph % (Auto) % Keith % (Auto) % Eos % (Auto) % Baso % (Auto) % Neut # (Auto) (1.4-6.5) K/uL Lymph # (Auto) (1.2-3.4) K/uL Keith # (Auto) (0.24-0.82) K/uL Eos # (Auto) (0-0.50) K/uL Baso # (Auto) (0-0.2) K/uL Immature Gran # (Auto) (0.00-0.02) K/uL Platelet Estimate (Normal) PT (9.0-12.0) Seconds INR (0.9-1.1) APTT (21.0-31.0) Seconds PTT Ratio POC Sodium (135-144) mmol/L Sodium (136-145) mmol/L POC Potassium (3.3-5.0) mmol/L Potassium (3.5-5.1) mmol/L POC Chloride (101-112) mmol/L Chloride (98-107) mmol/L Carbon Dioxide (21-32) mmol/L POC Total CO2 (24-31) mmol/L Anion Gap (3-11) POC Anion Gap (16-25) mmol/L POC BUN (7-18) mg/dl BUN (6-23) mg/dl Creatinine (0.6-1.4) mg/dl POC Creatinine (0.6-1.3) mg/dl Est Cr Clr Drug Dosing ml/min Est GFR ( Amer) ml/min Est GFR (Non-Af Amer) ml/min BUN/Creatinine Ratio (10-20) Glucose (70-99(Fasting)) mg/dl POC Glucose (70-99) mg/dl POC Glucose (other) (70-99) mg/dl Lactate 1.3 (0.4-2.0) mmol/L Calcium (8.5-10.1) mg/dl POC Ioniz Calcium Lotus (1.12-1.32) mmol/l Magnesium (1.7-2.4) mg/dl Total Bilirubin (0.2-1.0) mg/dl Direct Bilirubin (0-0.2) mg/dl AST (13-39) U/L ALT (7-52) U/L Alkaline Phosphatase (34-104) U/L Total Protein (6.0-8.3) gm/dl Albumin (3.4-5.0) gm/dl Lipase (11-82) U/L Ethyl Alcohol mg/dL (<10.0) mg/dl SARS-CoV-2, RNA, NAAT NEGATIVE (NEGATIVE) Imaging Data Radiologist's Impression: Abdomen/Pelvis CT 01/29/22 18:12 CT SCAN OF THE ABDOMEN AND PELVIS WITH IV CONTRAST CLINICAL HISTORY: Falls. Intoxication. COMPARISON STUDY: Abdominal CT dated 02/17/2020. TECHNIQUE: Following the IV administration of 94 cc of Optiray 350, CT scan of the abdomen and pelvis is performed from the lung bases to the proximal femora. Images are reviewed in the axial, sagittal, and coronal planes. IV contrast was administered without complication. A dose lowering technique was utilized adhering to the principles of ALARA. FINDINGS: Lung bases: The heart is top normal in size and without pericardial effusion. The coronary arteries and mitral annulus are densely calcified. There is a small hiatal hernia. Large esophageal varices are noted. There are calcified granulomas. The lung bases are otherwise clear noting bibasilar scarring/atelectasis. Calcified hilar lymph nodes are partially visualized. Liver: The contrast-enhanced liver is cirrhotic in morphology and heterogeneous in attenuation. There is nodularity of the hepatic surface contour and hypertrophy of the left lobe and caudate. There is no intrahepatic biliary ductal dilatation. The hepatic veins and portal veins are patent. Gallbladder: The gallbladder is contracted and contains numerous calcified gallstones. Spleen: The spleen is enlarged, measuring 15.5 cm in length. There are calcified splenic granulomas. Pancreas: Unremarkable. Adrenal glands: Unremarkable. Kidneys: There is asymmetric cortical atrophy of the left kidney as compared to the right. Moderate to severe left-sided hydronephrosis is unchanged. The left ureter is normal in caliber, no obstructing stone or lesion identified. This likely represents a UPJ type obstruction. No hydronephrosis is seen on the right. The kidneys enhance symmetrically. A retroaortic left renal vein is incidentally noted. Abdominal vasculature: The abdominal aorta is normal in course and caliber noting mild to moderate atherosclerotic calcification. Bowel: There is mild to moderate colonic fecal retention. No bowel obstruction is seen. The appendix is well-visualized and normal. Peritoneum: There is trace. Hepatic ascites. No intraperitoneal free air is seen. Lymphadenopathy: None. Pelvic viscera: The prostate gland is diminutive and heterogeneous. The bladder is distended, the wall appears thickened/trabeculated indicating chronic outlet obstruction. Skeletal structures: The skeletal structures are osteopenic. There is moderate lumbosacral spondylosis. A hemangioma is again noted in the body of S1. No lytic or blastic lesions are seen. IMPRESSION: 1. The liver is cirrhotic in morphology and heterogeneous in attenuation. 2. Splenomegaly, trace perihepatic ascites, and esophageal varices indicate portal hypertension. 3. Moderate to severe left hydronephrosis is similar to previous and likely represents a UPJ type obstruction. 4. Cholelithiasis. 5. Additional findings above. ACT 112: Negative or not required by law. Electronically signed by: Mike Jay M.D. 01/29/2022 8:[address] 01/29/22 18:12 CT SCAN OF THE CERVICAL SPINE CLINICAL HISTORY: Falls. Seizure. Intoxication. COMPARISON STUDY: CT of the cervical spine dated 12/17/2014. TECHNIQUE: CT scan of the cervical spine is performed from the skull base to the upper thoracic spine. Images are reviewed in the axial, sagittal, and coronal planes. IV contrast was not administered for this examination. A dose lowering technique was utilized adhering to the principles of ALARA. CT DOSE: 2758.11 mGy.cm FINDINGS: Skeletal structures: The skeletal structures are osteopenic. There is no evidence of fracture or subluxation involving the cervical spine. Vertebral body height and alignment are maintained. Anterior osteophytes are seen throughout. The odontoid process and lateral masses are intact. The atlantoaxial articulation is preserved noting productive degenerative change. The spinous processes appear intact. There is moderate multilevel cervical spondylosis. Uncovertebral and facet arthropathy contribute to neural foraminal narrowing at several levels. Intervertebral discs: There is mild multilevel degenerative disc space narrowing. Central canal: A posterior disc osteophyte complex at C4-C5 may contribute to mild acquired compromise of the central canal. Soft tissues: The prevertebral and paraspinous soft tissues are within normal limits. There is atherosclerotic calcification of the carotid bulbs. Calvarium: The visualized calvarium at the skull base appears intact. Brain parenchyma: Partially visualized brain parenchyma at the skull base is within normal limits. Sinuses and mastoids: The visualized paranasal sinuses are clear. The mastoid air cells are well pneumatized. Lung apices: Clear as visualized. IMPRESSION: 1. There is no evidence of fracture or subluxation involving the cervical spine. 2. Osteopenia and spondylotic change as above. ACT 112: Negative or not required by law. Electronically signed by: Mike Jay M.D. 01/29/2022 7:05 PM Chest X-Ray 01/29/22 18:12 SINGLE VIEW CHEST CLINICAL HISTORY: Falls. Seizure. Intoxication. FINDINGS: An AP, portable, semierect chest radiograph is compared to study dated 09/06/2021 and correlated with chest CT dated 07/25/2017. The examination is degraded by portable technique and patient rotation. The heart is enlarged. The pulmonary vascularity is noncongested. Apparent widening of the mediastinum is related to patient rotation. This is similar in appearance to similarly positioned prior examinations. The lungs and pleural spaces are clear noting bibasilar atelectasis. No pneumothorax is seen. The skeletal structures are osteopenic. There is chronic post marked deformity of the right clavicle. IMPRESSION: No active disease in the chest. ACT 112: Negative or not required by law. Electronically signed by: Mike Jay M.D. 01/29/2022 7:[address] 01/29/22 18:12 CT SCAN OF THE BRAIN WITHOUT IV CONTRAST CLINICAL HISTORY: Falls. Seizure. Intoxication. COMPARISON STUDY: CT of the brain dated 09/06/2021. TECHNIQUE: Unenhanced axial CT scan of the brain is performed from the vertex to the skull base. A dose lowering technique was utilized adhering to the principles of ALARA. FINDINGS: Brain parenchyma: There is involutional change noting minimal microangiopathic disease. There is no hemorrhage, mass effect, or evidence of acute territorial ischemia by CT criteria. Ayala-white matter differentiation is preserved. No extra-axial fluid collection is seen. Ventricles, sulci, cisterns: Prominent secondary to involutional change. Intracranial vasculature: There is atherosclerotic calcification of the cavernous carotid arteries. Calvarium: The skeletal structures are osteopenic. No depressed calvarial fracture is identified. There is chronic deformity along the frontal convexity. There are chronic bilateral nasal bone fractures. Sinuses and mastoids: There is trace mucosal thickening in the left maxillary antrum. The remaining visualized paranasal sinuses are clear. The mastoid air cells are well pneumatized. Orbits: The bony orbits are grossly intact. IMPRESSION: No acute intracranial abnormality. ACT 112: Negative or not required by law. Electronically signed by: Mike Jay M.D. 01/29/2022 7:11 PM ECG Data Indication: other (seizure) Rate (beats per minute): 75 Rhythm: normal sinus Findings: no ST depression, no ST elevation or no prolonged QT MDM Narrative 1810: The patient was evaluated in room B1. A complete history and physical exam was performed Cardiac monitoring: An order was placed for continuous cardiac monitoring. The monitor shows a rate of 70 with sinus rhythm 1935: Family is now bedside. I asked the patient if he has been taking his Keppra and he states he is not sure and is not sure if he is supposed to take it in the morning or in the evening. Per the EMR the patient supposed to take the Keppra twice daily. The family states that the patient's has been out of town who usually gives his medications. It is presumed that the patient has not been taking his Keppra as directed patient be treated with IV Keppra in the emergency department. 2015: Vital signs stable. Labs within normal limits. Alcohol is less than 10. Imaging shows no traumatic injury. Patient will be admitted for alcohol withdrawal seizure and seizure. Dr. Mir [facility] hospitalist team notified. Impression & Plan Seizure disorder, Alcohol withdrawal seizure Discharge Plan Visit Data Chief Complaint: Seizure Stated Complaint: SEIZURE, UNRESPONESIVE ED Provider: Sandoval Patel Discharge Problem: Seizure disorder, Alcohol withdrawal seizure Patient Disposition: Being Evaluated by Hospitalist Forms Stand Alone Forms: My [facility] Prescriptions Prescriptions: No Action allopurinol 300 mg tablet 300 mg PO DAILY Qty: 90 3RF spironolactone 50 mg tablet 50 mg PO DAILY Qty: 90 3RF thiamine HCl (vitamin B1) [Vitamin B-1] 100 mg tablet 100 mg PO DAILY Qty: 90 3RF quetiapine [Seroquel] 25 mg tablet 25 mg PO HS Qty: 90 3RF magnesium hydroxide [Milk of Magnesia] 400 mg/5 mL suspension 30 ml PO DAILY PRN (Reason: Constipation) Qty: 355 0RF metoprolol tartrate 75 mg tablet 75 mg PO BID Qty: 180 3RF tamsulosin 0.4 mg capsule 0.4 mg PO HS Qty: 90 1RF magnesium oxide 400 mg (241.3 mg magnesium) tablet 400 mg PO BID Qty: 60 0RF melatonin 3 mg tablet 3 mg PO HS Qty: 90 3RF levetiracetam [Keppra] 1,000 mg tablet 1,000 mg PO BID Qty: 60 5RF Rx Instructions: TOTAL DOSE 1,250 MG--TAKES WITH 250 MG TAB. levetiracetam 250 mg tablet 250 mg PO BID Qty: 60 5RF Rx Instructions: TOTAL DOSE 1,250 MG--TAKES WITH 1,000 MG TAB. lamotrigine 150 mg tablet 300 mg PO BID 30 Days Qty: 120 5RF Xifaxan 550 mg tablet 550 mg PO BID Qty: 60 0RF folic acid 1 mg tablet 1 mg PO DAILY Qty: 90 3RF lactulose 20 gram/30 mL Solution 30 ml PO DAILY Qty: 900 0RF multivitamin with folic acid [Daily-Ellie (with folic acid)] 400 mcg Tablet 1 tab PO QAM Qty: 30 0RF acetaminophen [Tylenol] 325 mg Tablet 650 mg PO Q4H PRN (Reason: Pain (Scale Score 1-3)) sennosides-docusate sodium [Senokot-S] 8.6-50 mg Tablet 1 tab-cap PO QDL PRN (Reason: Constipation) cyanocobalamin (vitamin B-12) [Vitamin B-12] 250 mcg Tablet 250 mcg PO DAILY bisacodyl 10 mg Suppository [address] DAILY PRN (Reason: Constipation) Fleet Enema 19-7 gram/118 mL Enema [address] DAILY PRN (Reason: Constipation) polyethylene glycol 3350 [Miralax] 17 gram/dose Powder 17 g PO QDL PRN (Reason: Constipation) Nurtec ODT 75 mg tablet,disintegrating 75 mg PO DIRECTED PRN (Reason: HEADACHES) Referrals Referrals: Giana Wan MD [Primary Care Provider] -
[2022-01-29 18:32] LABS: iSTAT Creatinine 1.1 mg/dl (0.6-1.3); iSTAT Hemoglobin 14.6 g/dl (14.0-18.0); iSTAT Ionized Calcium 1.16 mmol/l (1.12-1.32); iSTAT Potassium 4.4 mmol/L (3.3-5.0)
[2022-01-29 18:38] LABS: INR 1.1 (0.9-1.1); Partial Thromboplastin Time 28.5 Seconds (21.0-31.0); Prothrombin Time 12.1 Seconds (9.0-12.0)
[2022-01-29 18:47] LABS: Basophils # (auto) 0.01 K/uL (0-0.2); Basophils % (auto) 0.2 %; Eosinophils # (auto) 0.05 K/uL (0-0.50); Hematocrit (blood only) 40.7 % (40.1-51.0); Hemoglobin 14.5 g/dl (14.0-18.0); Immature Granulocytes # (auto) 0.01 K/uL (0.00-0.02); Immature Granulocytes % (auto) 0.2 %; Lymphocytes # (auto) 0.82 K/uL (1.2-3.4); Mean Corpuscular Hemoglobin 35.5 pg (25.0-34.0); Mean Corpuscular Hgb Conc 35.6 g/dL (32.0-36.0); Mean Corpuscular Volume 99.5 fL (80.0-100.0); Mean Platelet Volume 9.6 fL (9.4-12.4); Monocytes # (auto) 0.38 K/uL (0.24-0.82); Monocytes % (auto) 7.9 %; Neutrophils # (auto) 3.56 K/uL (1.4-6.5); Neutrophils % (auto) 73.7 %; Platelet Count 87 K/uL (130-400); Platelet Estimate Decreased (Normal); RDW Coefficient of Variation 13.5 % (11.5-14.5); RDW Standard Deviation 49.3 fL (36.4-46.3); Red Blood Count 4.09 M/uL (4.63-6.08); White Blood Count 4.83 K/ul (4.8-10.8)
[2022-01-29] MEDS ORDERED: OPTIRAY 350 100ml IV ONE (18:53)
[2022-01-29 18:54] LABS: BUN Creatinine Ratio 13.8 (10-20); Bilirubin Direct 0.3 mg/dl (0-0.2); Bilirubin,Total 1.4 mg/dl (0.2-1.0); Calcium 9.5 mg/dl (8.5-10.1); Creatinine Clr Calc Pharmacy 94.4 ml/min; Est GFR (African American) 86.3 ml/min; Est GFR (Non-African American) 74.4 ml/min; Magnesium 2.1 mg/dl (1.7-2.4); Potassium 4.4 mmol/L (3.5-5.1); Total Protein 8.1 gm/dl (6.0-8.3)
--- NOTE | 2022-01-29 19:02 | XRay Report ---
SINGLE VIEW CHEST CLINICAL HISTORY: Falls. Seizure. Intoxication. FINDINGS: An AP, portable, semierect chest radiograph is compared to study dated 09/06/2021 and correl ated with chest CT dated 07/25/2017. The examination is degraded by portable technique and patient rota tion. The heart is enlarged. The pulmonary vascularity is noncongested. Apparent widening of the med iastinum is related to patient rotation. This is similar in appearance to similarly positioned prior examinations. The lungs and pleural spaces are clear noting bibasilar atelectasis. No pneumothorax is seen. The skeletal structures are osteopenic. There is chronic post marked deformity of the right cl avicle. IMPRESSION: No active disease in the chest. ACT 112: Negative or not required by law. Electronically signed by: Mike Jay M.D. 01/29/2022 7:00 PM
--- NOTE | 2022-01-29 19:08 | CT Scan Report ---
CT SCAN OF THE CERVICAL SPINE CLINICAL HISTORY: Falls. Seizure. Intoxication. COMPARISON STUDY: CT of the cervical spine dated 12/17/2014. TECHNIQUE: CT scan of the cervical spine is performed from the skull base to the upper thoracic spine . Images are reviewed in the axial, sagittal, and coronal planes. IV contrast was not administered fo r this examination. A dose lowering technique was utilized adhering to the principles of ALARA. CT DOSE: 2758.11 mGy.cm FINDINGS: Skeletal structures: The skeletal structures are osteopenic. There is no evidence of fracture or subl uxation involving the cervical spine. Vertebral body height and alignment are maintained. Anterior os teophytes are seen throughout. The odontoid process and lateral masses are intact. The atlantoaxial a rticulation is preserved noting productive degenerative change. The spinous processes appear intact. There is moderate multilevel cervical spondylosis. Uncovertebral and facet arthropathy contribute to neural foraminal narrowing at several levels. Intervertebral discs: There is mild multilevel degenerative disc space narrowing. Central canal: A posterior disc osteophyte complex at C4-C5 may contribute to mild acquired compromis e of the central canal. Soft tissues: The prevertebral and paraspinous soft tissues are within normal limits. There is athero sclerotic calcification of the carotid bulbs. Calvarium: The visualized calvarium at the skull base appears intact. Brain parenchyma: Partially visualized brain parenchyma at the skull base is within normal limits. Sinuses and mastoids: The visualized paranasal sinuses are clear. The mastoid air cells are well pneu matized. Lung apices: Clear as visualized. IMPRESSION: 1. There is no evidence of fracture or subluxation involving the cervical spine. 2. Osteopenia and spondylotic change as above. ACT 112: Negative or not required by law. Electronically signed by: Mike Jay M.D. 01/29/2022 7:05 PM
--- NOTE | 2022-01-29 19:13 | CT Scan Report ---
CT SCAN OF THE BRAIN WITHOUT IV CONTRAST CLINICAL HISTORY: Falls. Seizure. Intoxication. COMPARISON STUDY: CT of the brain dated 09/06/2021. TECHNIQUE: Unenhanced axial CT scan of the brain is performed from the vertex to the skull base. A do se lowering technique was utilized adhering to the principles of ALARA. FINDINGS: Brain parenchyma: There is involutional change noting minimal microangiopathic disease. There is no h emorrhage, mass effect, or evidence of acute territorial ischemia by CT criteria. Ayala-white matter d ifferentiation is preserved. No extra-axial fluid collection is seen. Ventricles, sulci, cisterns: Prominent secondary to involutional change. Intracranial vasculature: There is atherosclerotic calcification of the cavernous carotid arteries. Calvarium: The skeletal structures are osteopenic. No depressed calvarial fracture is identified. The re is chronic deformity along the frontal convexity. There are chronic bilateral nasal bone fractures . Sinuses and mastoids: There is trace mucosal thickening in the left maxillary antrum. The remaining v isualized paranasal sinuses are clear. The mastoid air cells are well pneumatized. Orbits: The bony orbits are grossly intact. IMPRESSION: No acute intracranial abnormality. ACT 112: Negative or not required by law. Electronically signed by: Mike Jay M.D. 01/29/2022 7:11 PM
[2022-01-29] MEDS ORDERED: levETIRAcetam 1,000 MG in 0.9 % SODIUM CHLORIDE 100 ML IV STA (19:35)
--- NOTE | 2022-01-29 20:04 | CT Scan Report ---
CT SCAN OF THE ABDOMEN AND PELVIS WITH IV CONTRAST CLINICAL HISTORY: Falls. Intoxication. COMPARISON STUDY: Abdominal CT dated 02/17/2020. TECHNIQUE: Following the IV administration of 94 cc of Optiray 350, CT scan of the abdomen and pelvi s is performed from the lung bases to the proximal femora. Images are reviewed in the axial, sagittal , and coronal planes. IV contrast was administered without complication. A dose lowering technique wa s utilized adhering to the principles of ALARA. FINDINGS: Lung bases: The heart is top normal in size and without pericardial effusion. The coronary arteries a nd mitral annulus are densely calcified. There is a small hiatal hernia. Large esophageal varices are noted. There are calcified granulomas. The lung bases are otherwise clear noting bibasilar scarring/ atelectasis. Calcified hilar lymph nodes are partially visualized. Liver: The contrast-enhanced liver is cirrhotic in morphology and heterogeneous in attenuation. There is nodularity of the hepatic surface contour and hypertrophy of the left lobe and caudate. There is no intrahepatic biliary ductal dilatation. The hepatic veins and portal veins are patent. Gallbladder: The gallbladder is contracted and contains numerous calcified gallstones. Spleen: The spleen is enlarged, measuring 15.5 cm in length. There are calcified splenic granulomas. Pancreas: Unremarkable. Adrenal glands: Unremarkable. Kidneys: There is asymmetric cortical atrophy of the left kidney as compared to the right. Moderate t o severe left-sided hydronephrosis is unchanged. The left ureter is normal in caliber, no obstructing stone or lesion identified. This likely represents a UPJ type obstruction. No hydronephrosis is seen on the right. The kidneys enhance symmetrically. A retroaortic left renal vein is incidentally noted . Abdominal vasculature: The abdominal aorta is normal in course and caliber noting mild to moderate at herosclerotic calcification. Bowel: There is mild to moderate colonic fecal retention. No bowel obstruction is seen. The appendix is well-visualized and normal. Peritoneum: There is trace. Hepatic ascites. No intraperitoneal free air is seen. Lymphadenopathy: None. Pelvic viscera: The prostate gland is diminutive and heterogeneous. The bladder is distended, the wal l appears thickened/trabeculated indicating chronic outlet obstruction. Skeletal structures: The skeletal structures are osteopenic. There is moderate lumbosacral spondylosi s. A hemangioma is again noted in the body of S1. No lytic or blastic lesions are seen. IMPRESSION: 1. The liver is cirrhotic in morphology and heterogeneous in attenuation. 2. Splenomegaly, trace perihepatic ascites, and esophageal varices indicate portal hypertension. 3. Moderate to severe left hydronephrosis is similar to previous and likely represents a UPJ type obs truction. 4. Cholelithiasis. 5. Additional findings above. ACT 112: Negative or not required by law. Electronically signed by: Mike Jay M.D. 01/29/2022 8:02 PM
[2022-01-29] MEDS ORDERED: ACETAMINOPHEN 325 MG TAB PO PRN (21:02)
[2022-01-29] MEDS ORDERED: POLYETHYLENE (MIRALAX) 17 GM PACK PO PRN (21:02)
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
[2022-01-29] MEDS ORDERED: lamoTRIgine 100 MG TAB PO ONE (21:30)
[2022-01-29] MEDS ORDERED: METOPROLOL TARTRATE 25 MG TAB PO ONE (21:30)
[2022-01-29] MEDS: ENOXAPARIN INJ 30 MG/0.3 ML SYR SQ SCH (23:38)
[2022-01-30] MEDS ORDERED: PERFLUTREN LIPID MICROSPHERE (DEFINITY) IV ONE (06:59)
[2022-01-30 08:33] LABS: BUN Creatinine Ratio 13.9 (10-20); Calcium 9.4 mg/dl (8.5-10.1); Creatinine Clr Calc Pharmacy 98.9 ml/min; Est GFR (African American) 94.6 ml/min; Est GFR (Non-African American) 81.6 ml/min; Potassium 4.3 mmol/L (3.5-5.1)
[2022-01-30 08:37] LABS: Hematocrit (blood only) 37.9 % (40.1-51.0); Hemoglobin 13.2 g/dl (14.0-18.0); Mean Corpuscular Hemoglobin 34.5 pg (25.0-34.0); Mean Corpuscular Hgb Conc 34.8 g/dL (32.0-36.0); Mean Platelet Volume 9.9 fL (9.4-12.4); Platelet Count 73 K/uL (130-400); RDW Coefficient of Variation 13.4 % (11.5-14.5); RDW Standard Deviation 48.9 fL (36.4-46.3); Red Blood Count 3.83 M/uL (4.63-6.08); White Blood Count 3.78 K/ul (4.8-10.8)
[2022-01-30] MEDS: ENOXAPARIN INJ 30 MG/0.3 ML SYR SQ SCH ×2 (08:39→21:48)
[2022-01-30] MEDS: MULTIVITAMIN TAB PO SCH (08:40)
[2022-01-30] MEDS: LACTULOSE SYRUP 20 GM/30 ML UDC PO SCH (08:40)
[2022-01-30] MEDS: MAGNESIUM OXIDE 400 MG TAB PO SCH ×2 (08:40→21:39)
[2022-01-30] MEDS: SPIRONOLACTONE 25 MG TAB PO SCH (08:41)
[2022-01-30] MEDS: rifAXIMin 550 MG TABLET PO SCH ×2 (08:41→21:40)
[2022-01-30] MEDS: levETIRAcetam 500 MG TAB PO SCH ×3 (08:41→21:49)
[2022-01-30] MEDS: THIAMINE HCL 100 MG TAB PO SCH (08:41)
[2022-01-30] MEDS: lamoTRIgine 100 MG TAB PO SCH ×2 (08:42→21:50)
[2022-01-30] MEDS: METOPROLOL TARTRATE 25 MG TAB PO SCH ×2 (08:42→21:38)
[2022-01-30] MEDS: allopurinoL 300 MG TAB PO SCH (08:42)
[2022-01-30] MEDS: CYANOCOBALAMIN (B-12) 500 MCG TABLET PO SCH (08:43)
[2022-01-30] MEDS: FOLIC ACID 1 MG TAB PO SCH (08:43)
[2022-01-30] MEDS ORDERED: levETIRAcetam 250 MG TAB PO SCH (09:00)
--- NOTE | 2022-01-30 10:17 | Hospitalist Progress Note ---
Date of Service January 30, 2022 Assessment & Plan (1) Alcohol withdrawal seizure: Plan: Found down by family, followed by several witnessed tonic-clonic seizures while with EMS. - Continue home meds -> Patient admits he may not have been taking them. - LARS protocol as he has resumed drinking - Neurology consulted (2) Hypertension: Plan: BP normal today. - Continue beta-kennedi (3) Alcoholic cirrhosis: Plan: Appears compensated at this time. - Continue home lactulose, rifaximin, & spironolactone (4) Coronary artery disease: Plan: Hx of LAD stent. - Continue beta-kennedi - Not on ASA for esophageal varices (5) DVT prophylaxis: Plan: SCDs - Defer heparin given high bleeding risk Admission and Anticipated Discharge Date Admission Date: January 29, 2022 Subjective Doing well today. No focal complaints. Reports no fevers/chills, chest pain, shortness of breath, abdominal pain, nausea, or vomiting. He does not remember any/much of yesterday. Possibly waking up in the ambulance, though he is not sure. Physical Exam Constitutional: WD/WN, vitals as above Eyes: EOM intact bilaterally; no conjunctival abnormality ENMT: external ear and nose normal, oropharynx normal Neck: trachea midline, no thyromegaly normal visual inspection Respiratory: normal respiratory effort, lungs clear to auscultation no respiratory distress Cardiovascular: RRR, no murmur, no edema Gastrointestinal (Abdomen): Inspection/Auscultation: abdomen normal to inspection and + abdomen distended Musculoskeletal: no cyanosis or clubbing, extremities motor strength 5/5 Skin: no rashes, warm and dry Neurologic: moves all extremities and awake Psychiatric: Orientation: alert, oriented to person and cooperative Results & Data Results & Data ([facility]) Vital Signs (Past 12 Hours) Vital Signs Temp Pulse Pulse Resp BP Pulse Ox O2 Del Method 01/30/22 07:08 36.9 C 63 18 137/81 94 Room Air 01/30/22 06:09 65 01/30/22 03:54 36.5 C 65 20 148/87 H 95 Room Air 01/29/22 22:41 71 01/29/22 22:32 Room Air 01/29/22 22:32 36.6 C 67 16 129/82 97 Room Air PG Care Time/CCT Total # of Minutes Spent Total Time Spent with Patient: Total time spent is greater than 50% in coordination of care (as documented) at patient's floor/unit and/or counseling patient: Coding Level of Care Code 85094 Subseq Hosp Care Lvl 2 Diagnoses Alcohol withdrawal seizure F10.939; R56.9 Complication of substance-induced condition: with unspecified complication Hypertension I10 Alcoholic cirrhosis K70.30 Coronary artery disease I25.10 DVT prophylaxis Z29.9 (1) Alcohol withdrawal seizure Complication of substance-induced condition: with unspecified complication Qualified Code(s): F10.939 - Alcohol use, unspecified with withdrawal, unspecified; R56.9 - Unspecified convulsions
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
--- NOTE | 2022-01-30 16:08 | XCELERA ---
[id number]
--- NOTE | 2022-01-30 16:40 | Electrocardiogram Report ---
Test Reason : Blood Pressure : / mmHG Vent. Rate : 075 BPM Atrial Rate : 075 BPM P-R Int : 142 ms QRS Dur : 088 ms QT Int : 412 ms P-R-T Axes : 060 -57 032 degrees QTc Int : 460 ms Poor data quality, interpretation may be adversely affected Normal sinus rhythm Left axis deviation Abnormal ECG When compared with ECG of 10-SEP-2021 14:50, No significant change was found Confirmed by Saad Blair [id number]) on 01/30/2022 4:39:43 PM Referred By: REFERRED SELF Confirmed By:Saad Blair
--- NOTE | 2022-01-30 20:39 | Billing Data ---
Date of Service January 30, 2022 Coding Level of Care Code 57981 Initial Inpt Care Lvl 3
[2022-01-30] MEDS: QUEtiapine FUMARATE 25 MG TABLET PO SCH (21:37)
[2022-01-30] MEDS: MELATONIN 3 MG TAB PO SCH (21:40)
[2022-01-30] MEDS: TAMSULOSIN HCL 0.4 MG CAP PO SCH (21:40)
--- NOTE | 2022-01-31 07:28 | CT Scan Report ---
CT head/brain wo con CLINICAL HISTORY: new-onset confusion Technique: Contiguous axial CT images of the head were acquired from the base of the skull to the hattie jr without intravenous contrast administration. Images were viewed in brain, subdural and bone [facility]. Automated dose lowering techniques and/or adjustment according to patient size were utilized for this exam. Comparison: Comparison is made to CT head 01/29/2022 Findings: The ventricles, basal cisterns, and cerebral sulci are normal. There is no acute intracranial hemorrh age or evidence of acute territorial infarction. Neither mass effect, shift of the midline structures , nor abnormal extra-axial fluid collections are shown. Imaged portions of the paranasal sinuses and mastoid air cells are clear. The orbits appear normal. There are no acute fractures of the calvaria or scalp swelling. There is chronic deformity along the frontal convexity bilateral nasal bone fractures. Impression: No acute intracranial hemorrhage, no evidence of acute territorial infarction or other acute intracra nial disease process. ACT 112: Negative or not required by law. Electronically signed by: Gigi Gomez M.D. 01/31/2022 7:27 AM
[2022-01-31 07:33] LABS: Hematocrit (blood only) 37.6 % (40.1-51.0); Hemoglobin 13.5 g/dl (14.0-18.0); Mean Platelet Volume 9.6 fL (9.4-12.4); Platelet Count 75 K/uL (130-400); White Blood Count 3.72 K/ul (4.8-10.8)
[2022-01-31 07:59] LABS: Mean Corpuscular Hemoglobin 34.5 pg (25.0-34.0); Mean Corpuscular Hgb Conc 35.9 g/dL (32.0-36.0); Mean Corpuscular Volume 96.2 fL (80.0-100.0); RDW Coefficient of Variation 13.2 % (11.5-14.5); RDW Standard Deviation 47.3 fL (36.4-46.3); Red Blood Count 3.91 M/uL (4.63-6.08)
[2022-01-31] MEDS: lamoTRIgine 100 MG TAB PO SCH ×2 (08:02→20:24)
[2022-01-31] MEDS: THIAMINE HCL 100 MG TAB PO SCH (08:02)
[2022-01-31] MEDS: allopurinoL 300 MG TAB PO SCH (08:02)
[2022-01-31] MEDS: rifAXIMin 550 MG TABLET PO SCH ×2 (08:02→20:26)
[2022-01-31] MEDS: MAGNESIUM OXIDE 400 MG TAB PO SCH ×2 (08:02→20:30)
[2022-01-31] MEDS: CYANOCOBALAMIN (B-12) 500 MCG TABLET PO SCH (08:03)
[2022-01-31] MEDS: FOLIC ACID 1 MG TAB PO SCH (08:03)
[2022-01-31] MEDS: MULTIVITAMIN TAB PO SCH (08:03)
[2022-01-31] MEDS: SPIRONOLACTONE 25 MG TAB PO SCH (08:03)
[2022-01-31] MEDS: METOPROLOL TARTRATE 25 MG TAB PO SCH ×2 (08:03→20:27)
[2022-01-31 08:04] LABS: Albumin Globulin Ratio 0.9 (0.9-2); Albumin Level 3.5 gm/dl (3.4-5.0); BUN Creatinine Ratio 13.4 (10-20); Bilirubin,Total 1.3 mg/dl (0.2-1.0); Calcium 9.3 mg/dl (8.5-10.1); Creatinine Clr Calc Pharmacy 103.3 ml/min; Est GFR (African American) 99.3 ml/min; Est GFR (Non-African American) 85.7 ml/min; Globulin 3.7 gm/dl (2.5-4.0); Magnesium 1.9 mg/dl (1.7-2.4); Total Protein 7.2 gm/dl (6.0-8.3)
[2022-01-31] MEDS: levETIRAcetam 500 MG TAB PO SCH ×5 (08:04→21:43)
[2022-01-31] MEDS: LACTULOSE SYRUP 20 GM/30 ML UDC PO SCH (08:04)
[2022-01-31] MEDS: ENOXAPARIN INJ 30 MG/0.3 ML SYR SQ SCH ×2 (08:11→20:24)
--- NOTE | 2022-01-31 10:40 | Electroencephalogram ---
EEG Procedure Note Date of Service January 31, 2022 Start / End Times Start Time: 918 End Time: [address] 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 Home Medication List Medication Instructions Recorded Confirmed Type folic acid 1 mg tablet 1 mg PO DAILY #90 tabs 01/30/21 01/29/22 Rx rifaximin 550 mg tablet (Xifaxan) 550 mg PO BID #60 tabs 01/30/21 01/29/22 Rx allopurinol 300 mg tablet 300 mg PO DAILY #90 tabs 02/23/21 01/29/22 Rx spironolactone 50 mg tablet 50 mg PO DAILY #90 tabs 04/16/21 01/29/22 Rx lactulose 20 gram/30 mL oral 30 ml PO DAILY #900 mL 08/30/21 01/29/22 Rx solution multivitamin with folic acid 400 1 tab PO QAM #30 tabs 08/30/21 01/29/22 Rx mcg tablet (Daily-Ellie (with folic acid)) acetaminophen 325 mg tablet 650 mg PO Q4H PRN Pain (Scale 09/06/21 01/29/22 History (Tylenol) Score 1-3) bisacodyl 10 mg rectal suppository 10 mg [place] DAILY PRN Constipation 09/06/21 01/29/22 History cyanocobalamin (vitamin B-12) 250 250 mcg PO DAILY 09/06/21 01/29/22 History mcg tablet (Vitamin B-12) polyethylene glycol 3350 17 17 g PO QDL PRN Constipation 09/06/21 01/29/22 History gram/dose oral powder (Miralax) sennosides 8.6 mg-docusate sodium 1 tab-cap PO QDL PRN Constipation 09/06/21 01/29/22 History 50 mg tablet (Senokot-S) sodium phosphates 19 gram-7 118 ml [place] DAILY PRN Constipation 09/06/21 01/29/22 History gram/118 mL enema (Fleet Enema) magnesium hydroxide 400 mg/5 mL 30 ml PO DAILY PRN Constipation 12/06/21 01/29/22 Rx oral suspension (Milk of Magnesia) #355 mL metoprolol tartrate 75 mg tablet 75 mg PO BID #180 tabs 12/06/21 01/29/22 Rx quetiapine 25 mg tablet (Seroquel) 25 mg PO HS #90 tabs 12/06/21 01/29/22 Rx thiamine HCl (vitamin B1) 100 mg 100 mg PO DAILY #90 tabs 12/06/21 01/29/22 Rx tablet (Vitamin B-1) lamotrigine 150 mg tablet 300 mg PO BID 30 days #120 tabs 12/27/21 01/29/22 Rx levetiracetam 1,000 mg tablet 1,000 mg PO BID #60 tabs 12/27/21 01/29/22 Rx (Keppra) levetiracetam 250 mg tablet 250 mg PO BID #60 tabs 12/27/21 01/29/22 Rx tamsulosin 0.4 mg capsule 0.4 mg PO HS #90 caps 01/02/22 01/29/22 Rx melatonin 3 mg tablet 3 mg PO HS #90 tabs 01/04/22 01/29/22 Rx rimegepant 75 mg disintegrating 75 mg PO DIRECTED PRN HEADACHES 01/29/22 01/29/22 History tablet (Nurtec ODT) magnesium oxide 400 mg (241.3 mg 400 mg PO BID #60 tabs 01/30/22 Rx magnesium) tablet Inpatient Medication List Allopurinol (Allopurinol 300 Mg Tab) 300 mg PO DAILY MISTY Stop: 03/01/22 08:59 Last Admin: 01/31/22 08:02 Dose: 300 mg Documented By: Admin: 01/30/22 08:42 Dose: 300 mg Documented By: MG Cyanocobalamin (Cyanocobalamin (B-12) 500 Mcg Tablet) 250 mcg PO DAILY MISTY Stop: 03/01/22 08:59 Last Admin: 01/31/22 08:03 Dose: 250 mcg Documented By: Admin: 01/30/22 08:43 Dose: 250 mcg Documented By: MG Enoxaparin Sodium (Enoxaparin Inj 30 Mg/0.3 Ml Syr) 30 mg SQ Q12 MISTY Stop: 02/28/22 22:59 Last Admin: 01/31/22 08:11 Dose: 30 mg Documented By: Admin: 01/30/22 21:48 Dose: 30 mg Documented By: Admin: 01/30/22 08:39 Dose: 30 mg Documented By: Admin: 01/29/22 23:38 Dose: 30 mg Documented By: AGUSTO Folic Acid (Folic Acid 1 Mg Tab) 1 mg PO DAILY MISTY Stop: 03/01/22 08:59 Last Admin: 01/31/22 08:03 Dose: 1 mg Documented By: Admin: 01/30/22 08:43 Dose: 1 mg Documented By: MG Lactulose (Lactulose Syrup 20 Gm/30 Ml Udc) 20 gm PO DAILY MISTY Stop: 03/01/22 08:59 Last Admin: 01/31/22 08:04 Dose: 20 gm Documented By: Admin: 01/30/22 08:40 Dose: 20 gm Documented By: MG Lamotrigine (Lamotrigine 100 Mg Tab) 300 mg PO BID MISTY Stop: 03/01/22 08:59 Last Admin: 01/31/22 08:02 Dose: 300 mg Documented By: Admin: 01/30/22 21:50 Dose: 300 mg Documented By: Admin: 01/30/22 08:42 Dose: 300 mg Documented By: MG Levetiracetam (Levetiracetam 500 Mg Tab) 1,000 mg PO BID MISTY Stop: 03/01/22 08:59 Last Admin: 01/31/22 08:04 Dose: 1,000 mg Documented By: Admin: 01/30/22 21:37 Dose: 1,000 mg Documented By: Admin: 01/30/22 08:41 Dose: 1,000 mg Documented By: MG Levetiracetam (Levetiracetam 500 Mg Tab) 500 mg PO BID MISTY Stop: 03/01/22 20:59 Last Admin: 01/31/22 08:05 Dose: 500 mg Documented By: Admin: 01/30/22 21:49 Dose: 500 mg Documented By: QG Magnesium Oxide (Magnesium Oxide 400 Mg Tab) 400 mg PO BID MISTY Stop: 03/01/22 08:59 Last Admin: 01/31/22 08:02 Dose: 400 mg Documented By: Admin: 01/30/22 21:39 Dose: 400 mg Documented By: Admin: 01/30/22 08:40 Dose: 400 mg Documented By: MG Melatonin (Melatonin 3 Mg Tab) 3 mg PO HS MISTY Stop: 03/01/22 20:59 Last Admin: 01/30/22 21:40 Dose: 3 mg Documented By: QG Metoprolol Tartrate (Metoprolol Tartrate 25 Mg Tab) 75 mg PO BID MISTY Stop: 03/01/22 08:59 Last Admin: 01/31/22 08:03 Dose: 75 mg Documented By: Admin: 01/30/22 21:38 Dose: 75 mg Documented By: Admin: 01/30/22 08:42 Dose: 75 mg Documented By: MG Multivitamins (Multivitamin Tab) 1 tab PO QAM MISTY Stop: 03/01/22 08:59 Last Admin: 01/31/22 08:03 Dose: 1 tab Documented By: Admin: 01/30/22 08:40 Dose: 1 tab Documented By: MG Quetiapine Fumarate (Quetiapine Fumarate 25 Mg Tablet) 25 mg PO MISTY Stop: 03/01/22 20:59 Last Admin: 01/30/22 21:37 Dose: 25 mg Documented By: QG Rifaximin (Rifaximin 550 Mg Tablet) 550 mg PO BID MISTY Stop: 03/01/22 08:59 Last Admin: 01/31/22 08:02 Dose: 550 mg Documented By: Admin: 01/30/22 21:40 Dose: 550 mg Documented By: Admin: 01/30/22 08:41 Dose: 550 mg Documented By: MG Spironolactone (Spironolactone 25 Mg Tab) 50 mg PO DAILY MISTY Stop: 03/01/22 08:59 Last Admin: 01/31/22 08:03 Dose: 50 mg Documented By: Admin: 01/30/22 08:41 Dose: 50 mg Documented By: MG Tamsulosin HCl (Tamsulosin Hcl 0.4 Mg Cap) 0.4 mg PO HS MISTY Stop: 03/01/22 20:59 Last Admin: 01/30/22 21:40 Dose: 0.4 mg Documented By: QG Thiamine HCl (Thiamine Hcl 100 Mg Tab) 100 mg PO DAILY MISTY Stop: 03/01/22 08:59 Last Admin: 01/31/22 08:02 Dose: 100 mg Documented By: Admin: 01/30/22 08:41 Dose: 100 mg Documented By: MG Discontinued Medications Levetiracetam 1,000 mg/ Sodium (Chloride) 110 mls @ 440 mls/hr IV NOW STA Stop: 01/29/22 19:49 Last Infusion: 01/29/22 20:34 Dose: 0 mls/hr Documented By: Admin: 01/29/22 20:17 Dose: 440 mls/hr Documented By: ES Ioversol (Optiray 350 100ml) 94 ml IV ONCE ONE Stop: 01/29/22 18:54 Last Admin: 01/29/22 18:54 Dose: 94 ml Documented By: JOAQUIM Lamotrigine (Lamotrigine 100 Mg Tab) 300 mg PO 0 ONE Stop: 01/29/22 21:31 Last Admin: 01/29/22 21:59 Dose: 300 mg Documented By: ES Levetiracetam (Levetiracetam 250 Mg Tab) 250 mg PO BID MISTY Stop: 03/01/22 08:59 Last Admin: 01/30/22 08:40 Dose: 250 mg Documented By: MG Metoprolol Tartrate (Metoprolol Tartrate 25 Mg Tab) 75 mg PO 2129 ONE Stop: 01/29/22 21:31 Last Admin: 01/29/22 21:59 Dose: 75 mg Documented By: BALTAZAR Perflutren Lipid Microsphere (Perflutren Lipid Microsphere (Definity)) 2 ml IV ONCE ONE Stop: 01/30/22 07:00 Last Admin: 01/30/22 06:59 Dose: 2 ml Documented By: OLI Description This is a 21 electrode EEG with a single channel dedicated to limited EKG. The electrodes were placed in accordance with the International 10-20 system. Interpretation The predominant background activity consists of a Somewhat irregular 8Hz activity, of up to 40 mV in amplitude,seen symmetrically distributed over the posterior head regions bilaterally. This activity attenuates nicely with eye- opening and other alerting procedures. Photic stimulation was performed and elicited no change in the background activity and no abnormal responses were seen. Hyperventilation was not performed. A mild amount of muscle and movement artifact activity contaminated the recording and did not hinder interpretation to any significant degree. Throughout the waking portion of the recording, no focal abnormalities, abnormal slow activity, or potentially epileptogenic discharges are seen. The patient entered the drowsy state from time to time with no further activation. Deeper stages of sleep were not recorded. In summary, this EEG was normal during wakefulness and drowsiness. No focal abnormalities, potentially epileptogenic discharges, or abnormal slow activity was seen. Clinical Correlation The abscence of potentially epileptogenic activity does not exclude a seizure disorder, since interictally, EEGs can be normal. Clinical correlation is required. [facility] EEG Procedure Codes Indication for Procedure (1) Seizure disorder: Neurology Neurology: 84447 EEG include record awake & drowsy
--- NOTE | 2022-01-31 10:50 | Neurology Progress Note ---
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 He was admitted with several seizures on January 29. His alcohol level was undetectable and, according to his , he should have had no access to alcohol recently. It is likely he had seizures either because he was not taking his medication correctly or he had breakthrough seizures for some other reason. The patient's spell last evening was noted. After observing him this morning I wonder how much of his lack of responsiveness is volitional as compared to an encephalopathy or seizure. He has no signs of infection currently. 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 In addition he likely has a polyneuropathy which could be alcoholic as well. Recommendations: 1. Continue levetiracetam 1500 mg twice daily and check a trough level in 2 weeks. 2. Continue lamotrigine at 300 mg twice a day. also check a trough level in 2 weeks. 3. Consider MRI of the brain with without contrast to evaluate for intracranial abnormalities 4. Otherwise follow-up with Dr. Cade in clinic - [place] in 3-4 weeks. Overall, I spent a total of 35 minutes with this case including review of records, direct evaluation the patient at bedside, and discussion of the case with the patient at bedside and Dr. Mendez, including differential diagnosis and treatment options. Admission and Anticipated Discharge Date Admission Date: January 29, 2022 Subjective patient has no complaint of pain or headache. He does not feel dizzy and he is lying in bed with his eyes closed. He will follow 1 step commands but has a delay in doing so. Blood pressure is 136/78 and he is afebrile. Laboratory studies reveal a minimal anemia on CBC and a Chem profile which showed some elevated liver enzymes, but improved/stable from previous Patient had an episode last evening around 1955 where he was found to be unresponsive to voice but did respond to sternal rub. He was confused and was wandering the banerjee and incontinence x1. Pulled out his IV. This lasted for an uncertain period of time but he was back to baseline the rest of the night and this morning. I observed him during much of the EEG. EEG was normal during wakefulness and drowsiness with no focal abnormalities or potentially epileptogenic discharges Results & Data ([facility]) Vital Signs (Past 12 Hours) Vital Signs Temp Pulse Resp BP Pulse Ox O2 Del Method 01/31/22 07:30 Room Air 01/31/22 07:40 36.9 C 62 20 136/78 93 Room Air 01/31/22 03:06 36.9 C 64 18 122/69 94 Room Air 01/30/22 23:48 Room Air 01/30/22 23:10 37.4 C 76 16 142/82 H 93 Room Air Exam (Neuro) Physical Exam: Today he is lying in bed with his eyes closed but will open to command and wiggle his hands and feet to command. He is slow to react and is tending to "play possum". He will follow commands if I speak to him slightly more sternly and he seems To have symmetrical limb strength. PG Care Time/CCT Total # of Minutes Spent Total Time Spent with Patient: Total time spent is greater than 50% in coordination of care (as documented) at patient's floor/unit and/or counseling patient: Coding Level of Care Code 24823 Subseq Hosp Care Lvl 3 Diagnoses Seizure disorder G40.909 Time Spent (min) 35
--- NOTE | 2022-01-31 15:20 | Hospitalist Progress Note ---
Date of Service January 31, 2022 Assessment & Plan (1) Seizure disorder: Plan: Found down by family, followed by several witnessed tonic-clonic seizures while with EMS. - Continue home meds -> Patient admits he may not have been taking them. - LARS protocol as he has resumed drinking - Neurology consulted -> Recommend increasing Keppra to 1500 mg PO BID. Patient had EEG on 01/31 without concerning findings, so no need to further adjust meds at this time. - MRI brain pending; if normal, can be discharge to [facility]. (2) Hypertension: Plan: BP today is 155/80. - Continue beta-kennedi (3) Alcoholic cirrhosis: Plan: Appears compensated at this time. - Continue home lactulose, rifaximin, & spironolactone - Will get ammonia. Last was in 08/2021 and was normal. (4) Coronary artery disease: Plan: Hx of LAD stent. - Continue beta-kennedi - Not on ASA for esophageal varices (5) DVT prophylaxis: Plan: SCDs - Defer heparin given high bleeding risk Admission and Anticipated Discharge Date Admission Date: January 29, 2022 Subjective No complaints today. Had concerning night with some confusion and unresponsive episode. Reports no fevers/chills, chest pain, shortness of breath, abdominal pain, nausea, or vomiting. Physical Exam Constitutional: WD/WN, vitals as above Eyes: EOM intact bilaterally; no conjunctival abnormality ENMT: external ear and nose normal, oropharynx normal Neck: trachea midline, no thyromegaly normal visual inspection Respiratory: normal respiratory effort, lungs clear to auscultation no respiratory distress Cardiovascular: RRR, no murmur, no edema Gastrointestinal (Abdomen): Inspection/Auscultation: abdomen normal to inspection and + abdomen distended Musculoskeletal: no cyanosis or clubbing, extremities motor strength 5/5 Skin: no rashes, warm and dry Neurologic: moves all extremities and awake Psychiatric: Orientation: alert, oriented to person and cooperative Results & Data Results & Data ([facility]) Vital Signs (Past 12 Hours) Vital Signs Temp Pulse Pulse Resp BP BP Pulse Ox 01/31/22 06:09 62 01/31/22 11:26 36.7 C 62 16 155/80 H 95 01/31/22 07:30 01/31/22 07:40 36.9 C 62 20 136/78 93 O2 Del Method 01/31/22 06:09 01/31/22 11:26 Room Air 01/31/22 07:30 Room Air 01/31/22 07:40 Room Air PG Care Time/CCT Total # of Minutes Spent Total Time Spent with Patient: Total time spent is greater than 50% in coordination of care (as documented) at patient's floor/unit and/or counseling patient: Coding Level of Care Code 10994 Subseq Hosp Care Lvl 3 Diagnoses Seizure disorder G40.909 Hypertension I10 Alcoholic cirrhosis K70.30 Coronary artery disease I25.10 DVT prophylaxis Z29.9
[2022-01-31] MEDS ORDERED: GADOBUTROL 65ML VIAL IV ONE (17:35)
[2022-01-31] MEDS: QUEtiapine FUMARATE 25 MG TABLET PO SCH (20:24)
[2022-01-31] MEDS: MELATONIN 3 MG TAB PO SCH (20:27)
[2022-01-31] MEDS: TAMSULOSIN HCL 0.4 MG CAP PO SCH (20:27)
--- NOTE | 2022-01-31 20:51 | Magnetic Resonance Report ---
Brain MRI WITH AND WITHOUT CONTRAST HISTORY: Recurrent seizures TECHNIQUE: Multiplanar multisequence MRI of the brain was performed both before and after the intrave nous administration of contrast. COMPARISON STUDY: Brain MRI 08/27/2021. Head CT 01/30/2022. FINDINGS: No areas restricted diffusion to suggest acute infarction. The midline structures are intac t. There is no mass, hematoma, midline shift. The major vascular flow-voids at the skull base are wel l-maintained. Postcontrast sequences show no areas of abnormal enhancement. Small areas of encephalom alacia within the right anterior frontal lobe and right anterior temporal lobe with associated gliosi s. This remains unchanged. Mild atrophic changes again noted throughout the brain. Mild asymmetric at rophy within the right medial temporal lobe in comparison to the left. This is also unchanged. Focal defect within the right frontal bone, unchanged. IMPRESSION: No significant change compared to the prior study. No acute intracranial abnormality. ACT 112: Negative or not required by law. Electronically signed by: Roberto Parra M.D. 01/31/2022 8:49 PM
[2022-02-01] MEDS: MAGNESIUM OXIDE 400 MG TAB PO SCH (07:56)
[2022-02-01] MEDS: LACTULOSE SYRUP 20 GM/30 ML UDC PO SCH (07:56)
[2022-02-01] MEDS: levETIRAcetam 500 MG TAB PO SCH (07:56)
[2022-02-01] MEDS: METOPROLOL TARTRATE 25 MG TAB PO SCH (07:57)
[2022-02-01] MEDS: THIAMINE HCL 100 MG TAB PO SCH (07:57)
[2022-02-01] MEDS: FOLIC ACID 1 MG TAB PO SCH (07:57)
[2022-02-01] MEDS: lamoTRIgine 100 MG TAB PO SCH (07:58)
[2022-02-01] MEDS: rifAXIMin 550 MG TABLET PO SCH (07:58)
[2022-02-01] MEDS: MULTIVITAMIN TAB PO SCH (07:58)
[2022-02-01] MEDS: allopurinoL 300 MG TAB PO SCH (07:58)
[2022-02-01] MEDS: SPIRONOLACTONE 25 MG TAB PO SCH (07:59)
[2022-02-01] MEDS: ENOXAPARIN INJ 30 MG/0.3 ML SYR SQ SCH (07:59)
[2022-02-01] MEDS: CYANOCOBALAMIN (B-12) 500 MCG TABLET PO SCH (07:59)
[2022-02-01 08:57] LABS: Hematocrit (blood only) 38.1 % (40.1-51.0); Hemoglobin 13.7 g/dl (14.0-18.0); Mean Platelet Volume 9.6 fL (9.4-12.4); Platelet Count 71 K/uL (130-400); White Blood Count 3.61 K/ul (4.8-10.8)
[2022-02-01 09:12] LABS: INR 1.1 (0.9-1.1); Partial Thromboplastin Ratio 1.1; Partial Thromboplastin Time 30.6 Seconds (21.0-31.0)
[2022-02-01 09:17] LABS: Mean Corpuscular Hemoglobin 34.6 pg (25.0-34.0); Mean Corpuscular Volume 96.2 fL (80.0-100.0); RDW Coefficient of Variation 13.2 % (11.5-14.5); RDW Standard Deviation 46.6 fL (36.4-46.3); Red Blood Count 3.96 M/uL (4.63-6.08)
[2022-02-01 09:51] LABS: Albumin Globulin Ratio 0.9 (0.9-2); Albumin Level 3.5 gm/dl (3.4-5.0); BUN Creatinine Ratio 15.1 (10-20); Bilirubin,Total 1.3 mg/dl (0.2-1.0); Calcium 9.1 mg/dl (8.5-10.1); Creatinine Clr Calc Pharmacy 105.1 ml/min; Est GFR (African American) 104.5 ml/min; Est GFR (Non-African American) 90.2 ml/min; Globulin 3.8 gm/dl (2.5-4.0); Magnesium 1.8 mg/dl (1.7-2.4); Potassium 3.8 mmol/L (3.5-5.1); Total Protein 7.3 gm/dl (6.0-8.3)
--- NOTE | 2022-02-01 12:12 | Neurology Progress Note ---
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 He was admitted with several seizures on January 29. His alcohol level was undetectable and, according to his , he should have had no access to alcohol recently. It is likely he had seizures either because he was not taking his medication correctly or he had breakthrough seizures for some other reason. The patient's spell last evening was noted. After observing him this morning I wonder how much of his lack of responsiveness is volitional as compared to an encephalopathy or seizure. He has no signs of infection currently. 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 His ammonia level was elevated at 74 which could add to encephalopathy/ mental status changes and put him at a little higher risk for seizures. In addition he likely has a polyneuropathy which could be alcoholic as well. Recommendations: 1. Continue levetiracetam 1500 mg twice daily and check a trough level in 2 weeks. 2. Continue lamotrigine at 300 mg twice a day. also check a trough level in 2 weeks. 3. Otherwise follow-up with Dr. Cade in clinic - [place] in 3-4 weeks. Overall, I spent a total of 25 minutes with this case including review of records, direct evaluation the patient at bedside, and discussion of the case with the patient at bedside and Dr. Mendez, including differential diagnosis and treatment options. Admission and Anticipated Discharge Date Admission Date: January 29, 2022 Subjective patient was feeling fairly well this morning. His is at bedside. Blood pressure is 150/87 and his CBC and Chem profile were stable compared to previous. His ammonia level was elevated at 74 and his believes that he was not taking his lactulose (he does not like the taste ) MRI of the brain showed no acute changes or differences compared the previous MRI of August of this year. Results & Data ([facility]) Vital Signs (Past 12 Hours) Vital Signs Temp Pulse Pulse Pulse Resp BP BP 02/01/22 11:40 36.8 C 59 L 20 150/87 H 02/01/22 11:04 36.8 C 68 55 L 18 118/71 136/78 02/01/22 07:55 36.8 C 55 L 18 118/71 02/01/22 07:20 61 02/01/22 02:59 36.7 C 55 L 18 149/84 H Pulse Ox O2 Del Method 02/01/22 11:40 95 Room Air 02/01/22 11:04 97 02/01/22 07:55 97 Room Air 02/01/22 07:20 02/01/22 02:59 95 Room Air Exam (Neuro) Physical Exam: he was awake and alert. Speech was without aphasia or dysarthria. He follows one-step commands and his mood was reasonable. Extraocular eye muscles are intact without nystagmus. There is no facial droop. Coordination was normal in the right upper extremity. He had no abnormal involuntary movements. PG Care Time/CCT Total # of Minutes Spent Total Time Spent with Patient: Total time spent is greater than 50% in coordination of care (as documented) at patient's floor/unit and/or counseling patient: Coding Level of Care Code 31752 Subseq Hosp Care Lvl 2 Diagnoses Seizure disorder G40.909 Time Spent (min) 25
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
== END 2022-02-01 12:50 | DRG 101 ==
LOC: ED 18:00 → SUATTDRO 21:03 → 2N 21:03

== ENCOUNTER 2022-03-23 01:19 | Inpatient (IN) ==
[2022-03-23 01:57] LABS: iSTAT Hemoglobin 12.9 g/dl (14.0-18.0); iSTAT Ionized Calcium 1.14 mmol/l (1.12-1.32); iSTAT Potassium 3.9 mmol/L (3.3-5.0)
[2022-03-23 02:09] LABS: Basophils # (auto) 0.02 K/uL (0-0.2); Basophils % (auto) 0.4 %; Eosinophils # (auto) 0.04 K/uL (0-0.50); Eosinophils % (auto) 0.8 %; Hematocrit (blood only) 38.2 % (40.1-51.0); Hemoglobin 13.6 g/dl (14.0-18.0); Immature Granulocytes # (auto) 0.01 K/uL (0.00-0.02); Immature Granulocytes % (auto) 0.2 %; Lymphocytes # (auto) 0.65 K/uL (1.2-3.4); Lymphocytes % (auto) 12.2 %; Mean Corpuscular Hemoglobin 34.9 pg (25.0-34.0); Mean Corpuscular Hgb Conc 35.6 g/dL (32.0-36.0); Mean Corpuscular Volume 97.9 fL (80.0-100.0); Mean Platelet Volume 9.8 fL (9.4-12.4); Monocytes # (auto) 0.34 K/uL (0.24-0.82); Monocytes % (auto) 6.4 %; Neutrophils # (auto) 4.26 K/uL (1.4-6.5); Platelet Count 96 K/uL (130-400); RDW Coefficient of Variation 13.1 % (11.5-14.5); RDW Standard Deviation 46.6 fL (36.4-46.3); White Blood Count 5.32 K/ul (4.8-10.8)
[2022-03-23] MEDS ORDERED: ONDANSETRON INJ 2 MG/ML 2 ML VIAL IV STA (02:28)
[2022-03-23] MEDS ORDERED: HYDROmorphone INJ 0.5 MG/0.5 ML SYR IV STA ×2 (02:28→05:29)
[2022-03-23] MEDS ORDERED: DIPHTHERIA/TETANUS/PERTUSSIS 0.5 ML SYR/VIAL IM ONE (02:41)
--- NOTE | 2022-03-23 02:41 | Emergency Department Note ---
Impression & Plan Acute pancreatitis Admit to the [facility] ED Provider Note NAME: KRISTIN REYES AGE: 57 SEX: M ARRIVES VIA: Walk-In INFORMANT: Patient and his ED PROVIDER(S): Fabby Harvey DO CHIEF COMPLAINT: Right-sided abdominal pain PLAN: Disposition: Admit to the [facility] Condition: Guarded MEDICAL DECISION MAKING: This is a 57-year-old male patient with an extensive past medical history who presents to the emergency department with right-sided abdominal pain. Patient has a history of cirrhosis and had a sudden onset of right upper quadrant abdominal pain today. Incidentally, he suffered a fall this morning and his [employer] tractor ran over his left lower extremity. I do not believe this is related to his right upper quadrant abdominal pain. He does have a significant contusion noted to the left leg but no obvious fracture or other injury on exam from the trauma. Patient did have some superficial abrasions received IM Adacel for this. CT scan of the abdomen/pelvis shows peripancreatic inflammation and his lipase was 14,000. Ammonia level and INR were normal. Patient has received multiple doses of IV Dilaudid for pain. He is receiving IV normal saline. I have discussed the case with the [facility] and they will evalu ate for further inpatient care. Triage Nursing notes reviewed and agree with them. Additional history obtained from his is at the bedside Prior medical records reviewed Vital Signs: reviewed and unremarkable Differential diagnosis: Intra-abdominal trauma; cholecystitis; diverticulitis; appendicitis ER treatment provided: IV Dilaudid x3 IV Zofran IM Adacel Diagnostics interpreted by me: Cardiac Monitoring: Normal sinus rhythm at 74 Laboratory studies: See below Imaging studies: As per stat rad CT ABDOMEN & PELVIS With Contrast: 01/29/2022 comparison New peripancreatic fat stranding. No evidence of pancreatic necrosis or laceration. No loculated collection. No other acute findings. Normal appendix. No fracture. Other chronic findings are unchanged from the prior examination. Heterogeneous attenuation of the superior aspect of the right hepatic lobe. Consider a liver protocol MRI to exclude an underlying neoplasm in the setting of advanced cirrhosis. HPI: 57/M arrives for evaluation of right-sided abdominal pain. Patient has had right-sided abdominal pain since noon yesterday. Patient did suffer an injury yesterday morning where he was run over by a [employer] tractor. He was standing next to the tractor in his driveway when he turned the tractor on and it was in gear. It knocked him to the ground and the tractor actually ran over his left leg but not his abdomen. He seemed to feel okay for couple of hours but then began to have some pain in his abdomen. The pain has continued to worsen throughout the day and seems to be located in his right abdomen. He has no other significant associated symptoms. Patient has a history of cirrhosis. Patient denies any alcohol use over the past 6 weeks. ROS: See above HPI for pertinent positives & negatives. A total of 10 systems reviewed and were otherwise negative. PAST MEDICAL HISTORY:See Below PAST SURGICAL HISTORY:See Below FAMILY HISTORY:See Below SOCIAL HISTORY:See Below HOME MEDICATIONS:Patient does take a blood thinner but is not sure of the name. ALLERGIES:None VITALS:See Below PHYSICAL EXAMINATION: HEENT: Head - normocephalic and atraumatic. Pupils are equal, round, and reactive to light. Extraocular eye muscles are intact and sclera are anicteric. Ears - bilaterally patent canals with no evidence of hemotympanum. Nose - moist nasal mucosa without evidence of trauma or discharge. Mouth - moist buccal mucosa with no trauma to the teeth or signs of malocclusion. Neck:The neck is supple and there is no pain to palpation over the posterior cervical spine and no obvious step-offs or deformities. There is no JVD or tracheal deviation. Chest: There are no signs of deformities, contusions or abrasions to the chest wall. There is no obvious crepitus or paradoxical chest rise. Heart: Regular, rate, and rhythm. There is a normal S1 and S2 with no murmurs, clicks, or gallops appreciated. Lungs: Clear to auscultation bilaterally with no wheezes, rales, or rhonchi. Abdomen: Soft but extremely tender to palpation in the right upper quadrant and right mid abdomen. Pelvis: Stable to rock and compression. Extremities: Patient has some superficial abrasions and lacerations to the left arm from a pet. He also has a large contusion to the left lower extremity. Neuro: The patient is awake and alert and easily able to follow commands. Muscle strength is 5 out of 5 in all 4 extremities. Otherwise, neuro exam is unremarkable. ED COURSE: Times/Reassessments: 205: Patient was evaluated in room B4. A complete history and physical was performed. I performed a FAST exam at the bedside which was unremarkable. An IV lock was initiated and labs are drawn as above. The patient was medicated with IV Zofran and IV Dilaudid. Patient went for CT scan of the abdomen/pelvis. He was started on IV normal saline drip. He was given IM Adacel. I reviewed the results of the lab and the CT with the patient. I added additional laboratory studies to the patient's blood work. He required additional doses of IV Dilaudid for pain management. I discussed the case with the [facility] and they will evaluate her further inpatient care. Fabby Harvey, Past Med/Surg History Medical History Alcoholic cerebellar degeneration Alcoholic cirrhosis Anemia Chronic venous insufficiency Coronary artery disease Esophageal varices Gout History of kidney stones Hypertension Left knee DJD Osteoarthritis of right knee Peripheral neuropathy Portal hypertension Right knee DJD Seizure disorder (01/04/13) Situational depression Tremor Surgical History History of anesthesia reaction "was out strong enough for scope to go down, still had gag reflux" History of colonoscopy History of cystoscopy History of esophagogastroduodenoscopy (EGD) History of fracture of skull REPAIR SKULL-NO PLATE History of umbilical hernia repair History of varicose vein ligation and stripping BILAT Family History Father , in his 70s Family history of diabetes mellitus Cardiac disorder Mother Family history of diabetes mellitus Gout Sister Family history of diabetes mellitus Other No family history of adverse response to anesthesia Social History Smoking Status: Former smoker Tobacco Type: Cigarettes Second Hand Exposure: Yes; Do You Dip or Chew Tobacco: No; Hx Alcohol Use: Yes Alcohol type: beer Hx Substance Use: No Preferred Language: Turkmen Communication Ability: Effective Community Service Organization Director Required: No Beliefs That Will Affect Care: None Current Living Situation: Spouse Other Information That Helps Us Care for You: No Feels Safe at Home: Yes Safety Concerns: Feels Safe At This Time Safety Concerns Comment: Concerned about having seizures/falling when home alone Childhood Exposure to Second-Hand Smoke: Yes caffeine: No Assistive Devices: Cane Allergies Allergies Allergy/AdvReac Type Severity Reaction Status Date / Time No Known Allergies Allergy Verified 03/23/22 02:22 Home Meds Home Medications Medication Instructions Recorded Confirmed acetaminophen 325 mg tablet 650 mg PO Q4H PRN Pain (Scale 09/06/21 03/23/22 (Tylenol) Score 1-3) bisacodyl 10 mg rectal suppository 10 mg IN DAILY PRN Constipation 09/06/21 03/23/22 cyanocobalamin (vitamin B-12) 250 250 mcg PO DAILY 09/06/21 03/23/22 mcg tablet (Vitamin B-12) polyethylene glycol 3350 17 17 g PO QDL PRN Constipation 09/06/21 03/23/22 gram/dose oral powder (Miralax) sodium phosphates 19 gram-7 118 ml IN DAILY PRN Constipation 09/06/21 03/23/22 gram/118 mL enema (Fleet Enema) rimegepant 75 mg disintegrating 75 mg PO DIRECTED PRN HEADACHES 01/29/22 03/23/22 tablet (Nurtec ODT) levetiracetam 1,000 mg tablet 1,500 mg PO BID 02/21/22 03/23/22 (Keppra) Previous Rx's Medication Instructions Recorded rifaximin 550 mg tablet (Xifaxan) 550 mg PO BID #60 tabs 01/30/21 allopurinol 300 mg tablet 300 mg PO DAILY #90 tabs 02/23/21 lactulose 20 gram/30 mL oral 30 ml PO DAILY #900 mL 08/30/21 solution multivitamin with folic acid 400 1 tab PO QAM #30 tabs 08/30/21 mcg tablet (Daily-Ellie (with folic acid)) magnesium hydroxide 400 mg/5 mL 30 ml PO DAILY PRN Constipation 12/06/21 oral suspension (Milk of Magnesia) #355 mL metoprolol tartrate 75 mg tablet 75 mg PO BID #180 tabs 12/06/21 quetiapine 25 mg tablet (Seroquel) 25 mg PO HS #90 tabs 12/06/21 thiamine HCl (vitamin B1) 100 mg 100 mg PO DAILY #90 tabs 12/06/21 tablet (Vitamin B-1) lamotrigine 150 mg tablet 300 mg PO BID 30 days #120 tabs 12/27/21 tamsulosin 0.4 mg capsule 0.4 mg PO HS #90 caps 01/02/22 melatonin 3 mg tablet 3 mg PO HS #90 tabs 01/04/22 magnesium oxide 400 mg (241.3 mg 400 mg PO BID #60 tabs 01/30/22 magnesium) tablet folic acid 1 mg tablet 1 mg PO DAILY #90 tabs 02/01/22 levetiracetam 250 mg tablet 500 mg PO BID #60 tabs 02/01/22 Results & Data (ED) Vital Signs Vital Signs - 24 hr 03/23/22 01:23 03/23/22 03:19 03/23/22 01:45 Temperature 36.5 C Temperature Source Temporal Artery Scan Pulse Rate 74 65 Pulse Rate [Finger] Pulse Rate from SpO2 Sensor 65 Respiratory Rate 18 21 Respiratory Effort / Characteristics Non-Labored Spontaneous Non-Labored Respiratory Depth Normal Normal Blood Pressure 122/80 Blood Pressure [Left Arm] Blood Pressure Mean 94 Blood Pressure Mean [Left Arm] Pulse Oximetry 96 95 Oxygen Delivery Method Room Air Sepsis New/Unexplained Change in Mental Status N/A Sepsis Action Taken by Nursing No Action Required 03/23/22 01:50 03/23/22 02:00 03/23/22 02:10 Temperature Temperature Source Pulse Rate 63 63 62 Pulse Rate [Finger] Pulse Rate from SpO2 Sensor 64 63 62 Respiratory Rate 16 19 19 Respiratory Effort / Characteristics Respiratory Depth Blood Pressure Blood Pressure [Left Arm] Blood Pressure Mean Blood Pressure Mean [Left Arm] Pulse Oximetry 96 96 97 Oxygen Delivery Method Sepsis New/Unexplained Change in Mental Status Sepsis Action Taken by Nursing 03/23/22 02:20 03/23/22 02:30 03/23/22 02:59 Temperature Temperature Source Pulse Rate 75 61 63 Pulse Rate [Finger] Pulse Rate from SpO2 Sensor 61 Respiratory Rate 19 12 10 L Respiratory Effort / Characteristics Respiratory Depth Blood Pressure Blood Pressure [Left Arm] Blood Pressure Mean Blood Pressure Mean [Left Arm] Pulse Oximetry 94 Oxygen Delivery Method Sepsis New/Unexplained Change in Mental Status Sepsis Action Taken by Nursing 03/23/22 03:00 03/23/22 03:00 03/23/22 03:10 Temperature Temperature Source Pulse Rate 63 60 Pulse Rate [Finger] Pulse Rate from SpO2 Sensor 64 60 Respiratory Rate 20 18 Respiratory Effort / Characteristics Respiratory Depth Blood Pressure 129/77 Blood Pressure [Left Arm] Blood Pressure Mean 94 Blood Pressure Mean [Left Arm] Pulse Oximetry 95 93 Oxygen Delivery Method Sepsis New/Unexplained Change in Mental Status Sepsis Action Taken by Nursing 03/23/22 03:20 03/23/22 03:30 03/23/22 03:30 Temperature Temperature Source Pulse Rate 60 59 L Pulse Rate [Finger] Pulse Rate from SpO2 Sensor 60 59 L Respiratory Rate 17 17 Respiratory Effort / Characteristics Respiratory Depth Blood Pressure 133/76 Blood Pressure [Left Arm] Blood Pressure Mean 95 Blood Pressure Mean [Left Arm] Pulse Oximetry 93 94 Oxygen Delivery Method Sepsis New/Unexplained Change in Mental Status Sepsis Action Taken by Nursing 03/23/22 03:40 03/23/22 03:50 03/23/22 04:00 Temperature Temperature Source Pulse Rate 59 L 59 L Pulse Rate [Finger] Pulse Rate from SpO2 Sensor 59 L 59 L Respiratory Rate 20 17 Respiratory Effort / Characteristics Respiratory Depth Blood Pressure 146/83 H Blood Pressure [Left Arm] Blood Pressure Mean 104 Blood Pressure Mean [Left Arm] Pulse Oximetry 93 93 Oxygen Delivery Method Sepsis New/Unexplained Change in Mental Status Sepsis Action Taken by Nursing 03/23/22 04:00 03/23/22 04:10 03/23/22 04:20 Temperature Temperature Source Pulse Rate 59 L 58 L 59 L Pulse Rate [Finger] Pulse Rate from SpO2 Sensor 59 L 58 L 58 L Respiratory Rate 17 16 17 Respiratory Effort / Characteristics Respiratory Depth Blood Pressure Blood Pressure [Left Arm] Blood Pressure Mean Blood Pressure Mean [Left Arm] Pulse Oximetry 94 94 94 Oxygen Delivery Method Sepsis New/Unexplained Change in Mental Status Sepsis Action Taken by Nursing 03/23/22 04:30 03/23/22 04:30 03/23/22 07:37 Temperature Temperature Source Pulse Rate 62 Pulse Rate [Finger] 64 Pulse Rate from SpO2 Sensor 57 L Respiratory Rate 16 18 Respiratory Effort / Characteristics Respiratory Depth Blood Pressure 115/73 Blood Pressure [Left Arm] 147/83 H Blood Pressure Mean 87 Blood Pressure Mean [Left Arm] 104 Pulse Oximetry 94 96 Oxygen Delivery Method Room Air Sepsis New/Unexplained Change in Mental Status Sepsis Action Taken by Nursing Laboratory Data Result diagrams: 03/23/22 12:39 03/23/22 12:39 Lab Results 12/31/22 12/31/22 12/31/22 Range/Units 01:39 01:39 01:39 WBC 5.32 (4.8-10.8) K/ul RBC 3.90 L (4.63-6.08) M/uL Hgb 13.6 L (14.0-18.0) g/dl POC Hgb (14.0-18.0) g/dl Hct 38.2 L (40.1-51.0) % POC Hct (42-52) % MCV 97.9 (80.0-100.0) fL MCH 34.9 H (25.0-34.0) pg MCHC 35.6 (32.0-36.0) g/dL RDW Std Deviation 46.6 H (36.4-46.3) fL RDW Coeff of Mindy 13.1 (11.5-14.5) % Plt Count 96 L (130-400) K/uL MPV 9.8 (9.4-12.4) fL Immature Gran % (Auto) 0.2 % Neut % (Auto) 80.0 % Lymph % (Auto) 12.2 % Grady % (Auto) 6.4 % Eos % (Auto) 0.8 % Baso % (Auto) 0.4 % Neut # (Auto) 4.26 (1.4-6.5) K/uL Lymph # (Auto) 0.65 L (1.2-3.4) K/uL Grady # (Auto) 0.34 (0.24-0.82) K/uL Eos # (Auto) 0.04 (0-0.50) K/uL Baso # (Auto) 0.02 (0-0.2) K/uL Immature Gran # (Auto) 0.01 (0.00-0.02) K/uL PT (9.0-12.0) Seconds INR (0.9-1.1) POC Sodium (135-144) mmol/L Sodium 138 (136-145) mmol/L POC Potassium (3.3-5.0) mmol/L Potassium 3.9 (3.5-5.1) mmol/L POC Chloride (101-112) mmol/L Chloride 103 (98-107) mmol/L Carbon Dioxide 30 (21-32) mmol/L POC Total CO2 (24-31) mmol/L Anion Gap 5 (3-11) POC Anion Gap (16-25) mmol/L POC BUN (7-18) mg/dl BUN 13 (6-23) mg/dl Creatinine 0.85 (0.6-1.4) mg/dl POC Creatinine (0.6-1.3) mg/dl Est Cr Clr Drug Dosing Not Reportable Est GFR ( Amer) 110.5 ml/min Est GFR (Non-Af Amer) 95.4 ml/min BUN/Creatinine Ratio 15.3 (10-20) Glucose 112 H (70-99(Fasting)) mg/dl POC Glucose (other) (70-99) mg/dl Calcium 9.0 (8.5-10.1) mg/dl POC Ioniz Calcium Lotus (1.12-1.32) mmol/l Total Bilirubin 3.4 H (0.2-1.0) mg/dl AST 90 H (13-39) U/L ALT 53 H (7-52) U/L Alkaline Phosphatase 264 H (34-104) U/L Ammonia (18-72) umol/L Total Protein 7.4 (6.0-8.3) gm/dl Albumin 3.7 (3.4-5.0) gm/dl Globulin 3.7 (2.5-4.0) gm/dl Albumin/Globulin Ratio 1.0 (0.9-2) Lipase 94458 H (11-82) U/L Urine Color Urine Appearance (Clear) Urine pH (4.5-7.5) Ur Specific [place] (1.000-1.030) Urine Protein (Negative) Urine Glucose (UA) (Negative) Urine Ketones (Negative) Urine Blood (Negative) Urine Nitrite (Negative) Urine Bilirubin (Negative) Urine Urobilinogen (Negative) Ur Leukocyte Esterase (Negative) Ethyl Alcohol mg/dL (<10.0) mg/dl SARS-CoV-2, RNA, NAAT (NEGATIVE) 03/23/22 03/23/22 03/23/22 Range/Units 01:44 01:46 05:34 WBC (4.8-10.8) K/ul RBC (4.63-6.08) M/uL Hgb (14.0-18.0) g/dl POC Hgb 12.9 L (14.0-18.0) g/dl Hct (40.1-51.0) % POC Hct 38 L (42-52) % MCV (80.0-100.0) fL MCH (25.0-34.0) pg MCHC (32.0-36.0) g/dL RDW Std Deviation (36.4-46.3) fL RDW Coeff of Mindy (11.5-14.5) % Plt Count (130-400) K/uL MPV (9.4-12.4) fL Immature Gran % (Auto) % Neut % (Auto) % Lymph % (Auto) % Grady % (Auto) % Eos % (Auto) % Baso % (Auto) % Neut # (Auto) (1.4-6.5) K/uL Lymph # (Auto) (1.2-3.4) K/uL Grady # (Auto) (0.24-0.82) K/uL Eos # (Auto) (0-0.50) K/uL Baso # (Auto) (0-0.2) K/uL Immature Gran # (Auto) (0.00-0.02) K/uL PT 12.2 H (9.0-12.0) Seconds INR 1.2 H (0.9-1.1) POC Sodium 141 (135-144) mmol/L Sodium (136-145) mmol/L POC Potassium 3.9 (3.3-5.0) mmol/L Potassium (3.5-5.1) mmol/L POC Chloride 101 (101-112) mmol/L Chloride (98-107) mmol/L Carbon Dioxide (21-32) mmol/L POC Total CO2 28 (24-31) mmol/L Anion Gap (3-11) POC Anion Gap 16.0 (16-25) mmol/L POC BUN 11 (7-18) mg/dl BUN (6-23) mg/dl Creatinine (0.6-1.4) mg/dl POC Creatinine 1.0 (0.6-1.3) mg/dl Est Cr Clr Drug Dosing Est GFR ( Amer) ml/min Est GFR (Non-Af Amer) ml/min BUN/Creatinine Ratio (10-20) Glucose (70-99(Fasting)) mg/dl POC Glucose (other) 111 H (70-99) mg/dl Calcium (8.5-10.1) mg/dl POC Ioniz Calcium Lotus 1.14 (1.12-1.32) mmol/l Total Bilirubin (0.2-1.0) mg/dl AST (13-39) U/L ALT (7-52) U/L Alkaline Phosphatase (34-104) U/L Ammonia 38.0 (18-72) umol/L Total Protein (6.0-8.3) gm/dl Albumin (3.4-5.0) gm/dl Globulin (2.5-4.0) gm/dl Albumin/Globulin Ratio (0.9-2) Lipase (11-82) U/L Urine Color Urine Appearance (Clear) Urine pH (4.5-7.5) Ur Specific [place] (1.000-1.030) Urine Protein (Negative) Urine Glucose (UA) (Negative) Urine Ketones (Negative) Urine Blood (Negative) Urine Nitrite (Negative) Urine Bilirubin (Negative) Urine Urobilinogen (Negative) Ur Leukocyte Esterase (Negative) Ethyl Alcohol mg/dL (<10.0) mg/dl SARS-CoV-2, RNA, NAAT (NEGATIVE) 03/23/22 03/23/22 03/23/22 Range/Units 05:34 05:40 06:55 WBC (4.8-10.8) K/ul RBC (4.63-6.08) M/uL Hgb (14.0-18.0) g/dl POC Hgb (14.0-18.0) g/dl Hct (40.1-51.0) % POC Hct (42-52) % MCV (80.0-100.0) fL MCH (25.0-34.0) pg MCHC (32.0-36.0) g/dL RDW Std Deviation (36.4-46.3) fL RDW Coeff of Mindy (11.5-14.5) % Plt Count (130-400) K/uL MPV (9.4-12.4) fL Immature Gran % (Auto) % Neut % (Auto) % Lymph % (Auto) % Grady % (Auto) % Eos % (Auto) % Baso % (Auto) % Neut # (Auto) (1.4-6.5) K/uL Lymph # (Auto) (1.2-3.4) K/uL Grady # (Auto) (0.24-0.82) K/uL Eos # (Auto) (0-0.50) K/uL Baso # (Auto) (0-0.2) K/uL Immature Gran # (Auto) (0.00-0.02) K/uL PT (9.0-12.0) Seconds INR (0.9-1.1) POC Sodium (135-144) mmol/L Sodium (136-145) mmol/L POC Potassium (3.3-5.0) mmol/L Potassium (3.5-5.1) mmol/L POC Chloride (101-112) mmol/L Chloride (98-107) mmol/L Carbon Dioxide (21-32) mmol/L POC Total CO2 (24-31) mmol/L Anion Gap (3-11) POC Anion Gap (16-25) mmol/L POC BUN (7-18) mg/dl BUN (6-23) mg/dl Creatinine (0.6-1.4) mg/dl POC Creatinine (0.6-1.3) mg/dl Est Cr Clr Drug Dosing Est GFR ( Amer) ml/min Est GFR (Non-Af Amer) ml/min BUN/Creatinine Ratio (10-20) Glucose (70-99(Fasting)) mg/dl POC Glucose (other) (70-99) mg/dl Calcium (8.5-10.1) mg/dl POC Ioniz Calcium Lotus (1.12-1.32) mmol/l Total Bilirubin (0.2-1.0) mg/dl AST (13-39) U/L ALT (7-52) U/L Alkaline Phosphatase (34-104) U/L Ammonia (18-72) umol/L Total Protein (6.0-8.3) gm/dl Albumin (3.4-5.0) gm/dl Globulin (2.5-4.0) gm/dl Albumin/Globulin Ratio (0.9-2) Lipase (11-82) U/L Urine Color Dark Yellow Urine Appearance Clear (Clear) Urine pH 8.0 H (4.5-7.5) Ur Specific [place] 1.029 (1.000-1.030) Urine Protein Negative (Negative) Urine Glucose (UA) Negative (Negative) Urine Ketones Negative (Negative) Urine Blood Negative (Negative) Urine Nitrite Negative (Negative) Urine Bilirubin Negative (Negative) Urine Urobilinogen Negative (Negative) Ur Leukocyte Esterase Negative (Negative) Ethyl Alcohol mg/dL < 10.0 (<10.0) mg/dl SARS-CoV-2, RNA, NAAT NEGATIVE (NEGATIVE) Administered Medications Allopurinol (Allopurinol 300 Mg Tab) 300 mg PO DAILY MISTY Stop: 04/22/22 10:29 Last Admin: 03/23/22 11:12 Dose: 300 mg Documented By: MADHAVI Hydromorphone HCl (Hydromorphone Inj 0.5 Mg/0.5 Ml Syr) 0.5 mg IV Q6H PRN PRN Reason: Pain Stop: 04/06/22 13:50 Last Admin: 03/23/22 14:03 Dose: 0.5 mg Documented By: MADHAVI Lactated Ringer's (Lr) 1,000 mls @ 150 mls/hr IV .Q6H40M [facility] Stop: 04/22/22 08:44 Last Infusion: 03/23/22 12:44 Dose: 150 mls/hr Documented By: Infusion: 03/23/22 12:30 Dose: 0 mls/hr Documented By: Infusion: 03/23/22 12:28 Dose: 150 mls/hr Documented By: Infusion: 03/23/22 11:20 Dose: 0 mls/hr Documented By: Admin: 03/23/22 10:01 Dose: 150 mls/hr Documented By: MADHAVI Lactulose (Lactulose Syrup 20 Gm/30 Ml Udc) 20 gm PO DAILY MISTY Stop: 04/22/22 10:29 Last Admin: 03/23/22 11:13 Dose: 20 gm Documented By: MADHAVI Lamotrigine (Lamotrigine 100 Mg Tab) 300 mg PO BID MISTY Stop: 04/22/22 10:29 Last Admin: 03/23/22 11:12 Dose: 300 mg Documented By: MADHAVI Levetiracetam (Levetiracetam 500 Mg Tab) 1,500 mg PO BID [facility] Stop: 04/22/22 10:29 Last Admin: 03/23/22 11:11 Dose: 1,500 mg Documented By: MADHAVI Metoprolol Tartrate (Metoprolol Tartrate 25 Mg Tab) 75 mg PO BID [facility] Stop: 03/24/22 00:01 Last Admin: 03/23/22 11:12 Dose: 75 mg Documented By: MADHAVI Rifaximin (Rifaximin 550 Mg Tablet) 550 mg PO BID [facility] Stop: 04/22/22 10:29 Last Admin: 03/23/22 11:12 Dose: 550 mg Documented By: MADHAVI Thiamine HCl (Thiamine Hcl 100 Mg Tab) 100 mg PO DAILY MISTY Stop: 04/22/22 10:29 Last Admin: 03/23/22 11:12 Dose: 100 mg Documented By: MADHAVI Discontinued Medications Diphtheria/Pertussis/Tetanus Vacc (Diphtheria/Tetanus/Pertussis 0.5 Ml Syr/Vial) 0.5 ml IM .ONCE ONE Stop: 03/23/22 02:42 Last Admin: 03/23/22 03:55 Dose: 0.5 ml Documented By: SOCO Hydromorphone HCl (Hydromorphone Inj 0.5 Mg/0.5 Ml Syr) 0.5 mg IV NOW STA Stop: 03/23/22 02:29 Last Admin: 03/23/22 02:34 Dose: 0.5 mg Documented By: SOCO Hydromorphone HCl (Hydromorphone Inj 0.5 Mg/0.5 Ml Syr) 0.5 mg IV NOW STA Stop: 03/23/22 05:30 Last Admin: 03/23/22 05:42 Dose: 0.5 mg Documented By: SOCO Hydromorphone HCl (Hydromorphone Inj 1 Mg/Ml Syringe) 1 mg IV NOW STA Stop: 03/23/22 07:32 Last Admin: 03/23/22 07:42 Dose: 1 mg Documented By: KERA Sodium Chloride (Nss) 500 mls @ 999 mls/hr IV .Q31M ONE Stop: 03/23/22 05:49 Last Infusion: 03/23/22 06:30 Dose: 0 mls/hr Documented By: Admin: 03/23/22 05:39 Dose: 999 mls/hr Documented By: SOCO Sodium Chloride (Nss) 500 mls @ 125 mls/hr IV .Q4H MISTY Stop: 04/22/22 05:29 Last Admin: 03/23/22 09:58 Dose: Not Given Documented By: Infusion: 03/23/22 09:58 Dose: 0 mls/hr Documented By: Admin: 03/23/22 06:45 Dose: 125 mls/hr Documented By: SOCO Ioversol (Optiray 350 100ml) 86 ml IV ONCE ONE Stop: 03/23/22 02:58 Last Admin: 03/23/22 02:57 Dose: 86 ml Documented By: TACHO Levetiracetam (Levetiracetam 500 Mg Tab) 500 mg PO ONE ONE Stop: 03/23/22 07:13 Last Admin: 03/23/22 07:43 Dose: 500 mg Documented By: KERA Levetiracetam (Levetiracetam 500 Mg Tab) 1,000 mg PO ONE ONE Stop: 03/23/22 07:47 Last Admin: 03/23/22 08:03 Dose: 1,000 mg Documented By: KERA Ondansetron HCl (Ondansetron Inj 2 Mg/Ml 2 Ml Vial) 4 mg IV NOW STA Stop: 03/23/22 02:29 Last Admin: 03/23/22 02:34 Dose: 4 mg Documented By: SOCO Imaging Data Radiologist's Impression: Abdomen/Pelvis CT 03/23/22 02:[address] WITH IV CONTRAST CT DOSE: 1544.03 mGy.cm HISTORY: Right lower quadrant abd pain, run over by tractor TECHNIQUE: Multiaxial CT images of the abdomen and pelvis were performed following the use of intravenous contrast. A dose lowering technique was utilized adhering to the principles of ALARA. COMPARISON STUDY: Abdomen and pelvis CT 01/29/2022. FINDINGS: Mild dependent changes seen within the lung bases. There is a punctate calcified granuloma within the right lower lobe. No pneumoperitoneum. No pneumatosis. There are old, healed bilateral rib fractures. No acute fractures identified. Cirrhosis, splenomegaly, and paraesophageal/upper abdominal varices are again noted. Diffuse peripancreatic edema/inflammatory change consistent with acute pancreatitis. No evidence for peripancreatic loculated fluid collections or pancreatic necrosis. Mild peripancreatic lymphadenopathy is likely reactive. Cholelithiasis. Trace pericholecystic fluid may be due to the patient's cirrhosis. The main portal vein is patent. Normal caliber abdominal aorta. There is a left retroaortic renal vein. 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 Mild thickening of the duodenum is likely reactive to the suspected acute pancreatitis. The bladder is unremarkable. Trace fluid along the left paracolic gutter. No bowel wall thickening or obstruction. Normal appendix. IMPRESSION: 1. Peripancreatic edema/inflammatory change consistent with an acute pancreatitis. No evidence for pancreatic necrosis at this time. 2. Cholelithiasis. Mild gallbladder wall thickening and trace pericholecystic fluid is likely due to the patient's cirrhosis. A developing acute cholecystitis could also have a similar appearance but is considered less likely. 3. Cirrhosis with stigmata of portal hypertension again noted. 4. Additional findings as described above. ACT 112: Negative or not required by law. Electronically signed by: Roberto Parra M.D. 03/23/2022 8:05 AM Discharge Plan Visit Data Chief Complaint: Abdominal Pain Stated Complaint: R SIDE ABD PAINS ED Provider: Fabby Harvey Discharge Problem: Acute pancreatitis Patient Disposition: Admitted As Inpatient Discharge Instructions Interventions: ED Discharge Assessment Last Done: 03/23/22 09:37 : Acute pancreatitis Qualifiers: Pancreatitis type: unspecified pancreatitis type Acute pancreatitis complication: no infection or necrosis Qualified Code(s): K85.90 - Acute pancreatitis without necrosis or infection, unspecified
[2022-03-23 02:43] LABS: Alanine Aminotransferase 53 U/L (7-52); Albumin Level 3.7 gm/dl (3.4-5.0); Alkaline Phosphatase 264 U/L (34-104); Anion Gap 5 (3-11); Aspartate Aminotransferase 90 U/L (13-39); BUN Creatinine Ratio 15.3 (10-20); Bilirubin,Total 3.4 mg/dl (0.2-1.0); Blood Urea Nitrogen 13 mg/dl (6-23); Carbon Dioxide 30 mmol/L (21-32); Chloride 103 mmol/L (98-107); Est GFR (African American) 110.5 ml/min; Est GFR (Non-African American) 95.4 ml/min; Globulin 3.7 gm/dl (2.5-4.0); Glucose 112 mg/dl (70-99(Fasting)); Potassium 3.9 mmol/L (3.5-5.1); Sodium 138 mmol/L (136-145); Total Protein 7.4 gm/dl (6.0-8.3)
[2022-03-23] MEDS ORDERED: OPTIRAY 350 100ml IV ONE (02:57)
[2022-03-23] MEDS ORDERED: SODIUM CHLORIDE 0.9% 500 ML IV ONE (05:19)
[2022-03-23 06:27] LABS: Appearance Urine Clear (Clear); Bilirubin Urine Negative (Negative); Blood Urine Negative (Negative); Color Urine Dark Yellow; Glucose Urine UA Negative (Negative); Ketones Urine Negative (Negative); Leukocyte Esterase Urine Negative (Negative); Nitrite Urine Negative (Negative); Protein Urine Negative (Negative); Specific Gravity Urine 1.029 (1.000-1.030); Urobilinogen Urine Negative (Negative)
[2022-03-23] MEDS: SODIUM CHLORIDE 0.9% 500 ML IV SCH ×2 (06:45→09:58)
[2022-03-23 07:02] LABS: INR 1.2 (0.9-1.1); Prothrombin Time 12.2 Seconds (9.0-12.0)
[2022-03-23] MEDS ORDERED: levETIRAcetam 500 MG TAB PO ONE ×2 (07:12→07:46)
[2022-03-23] MEDS ORDERED: HYDROmorphone INJ 1 MG/ML SYRINGE IV STA (07:31)
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
[2022-03-23] MEDS ORDERED: POLYETHYLENE (MIRALAX) 17 GM PACK PO PRN (09:56)
[2022-03-23] MEDS ORDERED: MAGNESIUM HYDROXIDE SUSP 30 ML UDC PO PRN (09:56)
[2022-03-23] MEDS ORDERED: bisacodyL 10 MG SUPP PR PRN (09:56)
[2022-03-23] MEDS ORDERED: ONDANSETRON INJ 2 MG/ML 2 ML VIAL IV PRN (09:56)
[2022-03-23] MEDS: LACTATED RINGER'S 1,000 ML IV SCH ×2 (10:01→17:47)
--- NOTE | 2022-03-23 10:38 | XRay Report ---
XR tibia fibula LT 2V CLINICAL HISTORY: injury,pain,contusion COMPARISON: Left knee radiographs December 20, 2014. FINDINGS: No acute fracture within the left tibia or fibula is identified. Talar dome is intact. Per iosteal thickening of the medial shaft of the left tibia is chronic. There is no suspicious osseous l esion. IMPRESSION: No acute fracture within the left tibia or fibula. ACT 112: Negative or not required by law. Electronically signed by: Richard Wan M.D. 03/23/2022 10:35 AM
[2022-03-23] MEDS: levETIRAcetam 500 MG TAB PO SCH ×2 (11:11→19:26)
[2022-03-23] MEDS: lamoTRIgine 100 MG TAB PO SCH ×2 (11:12→19:25)
[2022-03-23] MEDS: METOPROLOL TARTRATE 25 MG TAB PO SCH ×2 (11:12→19:24)
[2022-03-23] MEDS: allopurinoL 300 MG TAB PO SCH (11:12)
[2022-03-23] MEDS: rifAXIMin 550 MG TABLET PO SCH ×2 (11:12→19:26)
[2022-03-23] MEDS: THIAMINE HCL 100 MG TAB PO SCH (11:12)
[2022-03-23] MEDS: LACTULOSE SYRUP 20 GM/30 ML UDC PO SCH (11:13)
--- NOTE | 2022-03-23 12:42 | Magnetic Resonance Report ---
MRCP CLINICAL HISTORY: pancreatitis,elevated LFTs TECHNIQUE: Utilizing a 1.5 Adriana magnet and dedicated coil, multiplanar, multiecho imaging of the [facility] er abdomen was performed utilizing heavily T2 weighted pulsing sequences without IV contrast. COMPARISON STUDY: CT of the abdomen and pelvis January 29, 2022 and March 23, 2022. Right upper q uadrant ultrasound August 04, 2021. FINDINGS: The liver is cirrhotic. A small amount of perihepatic ascites is noted. No hepatic lesions are identified although sensitivity is diminished on this unenhanced exam. No intra or extrahepatic b iliary ductal dilatation is present. The common bile duct measures 4 mm in caliber. No common bile du ct calculi are identified although this exam is mildly compromised by motion artifact. There are gall stones within the gallbladder. Gallbladder wall thickening with trace pericholecystic fluid is noted. However, the gallbladder is not distended. These findings do not suggest acute cholecystitis. Abdomi nal varices are noted, including paraesophageal varices. Mild splenomegaly is noted. Small amount of peripancreatic fluid is present. No peripancreatic fluid collection is present. A few small cystic le sions within the pancreas communicate with the main pancreatic duct. These measure up to 1.1 cm. No p ancreatic ductal dilatation is present. There is no right hydronephrosis. Left hydronephrosis is unch anged and represents congenital UPJ type obstruction. Caliber of visualized small and large bowel are normal. There is no abdominal lymphadenopathy. IMPRESSION: 1. No biliary ductal dilatation. No common bile duct calculi identified although exam compromised by motion artifact. 2. Cholelithiasis. Mild gallbladder wall thickening with trace pericholecystic fluid which is likely related to cirrhosis. These findings do not suggest acute cholecystitis. 3. Cirrhosis with manifestations of portal hypertension including varices formation, ascites and sple nomegaly. 4. Peripancreatic fluid consistent with acute pancreatitis. No peripancreatic fluid collection. 5. A few small cystic pancreatic lesions which communicate with the main pancreatic duct. These likel y reflect side branch IPMNs. A follow-up MRI of the pancreas in one year to ensure stability is recom mended. ACT 112: Negative or not required by law. Electronically signed by: Richard Wan M.D. 03/23/2022 12:40 PM
[2022-03-23 12:46] LABS: Hematocrit (blood only) 38.2 % (40.1-51.0); Hemoglobin 13.7 g/dl (14.0-18.0); Mean Corpuscular Hemoglobin 35.1 pg (25.0-34.0); Mean Corpuscular Hgb Conc 35.9 g/dL (32.0-36.0); Mean Corpuscular Volume 97.9 fL (80.0-100.0); Mean Platelet Volume 9.3 fL (9.4-12.4); Platelet Count 101 K/uL (130-400); RDW Coefficient of Variation 13.1 % (11.5-14.5); RDW Standard Deviation 46.5 fL (36.4-46.3); White Blood Count 7.16 K/ul (4.8-10.8)
[2022-03-23 13:07] LABS: Creatinine Clr Calc Pharmacy 137.4 ml/min; Potassium 3.9 mmol/L (3.5-5.1)
[2022-03-23] MEDS: HYDROmorphone INJ 0.5 MG/0.5 ML SYR IV PRN ×2 (14:03→19:27)
[2022-03-23] MEDS: TAMSULOSIN HCL 0.4 MG CAP PO SCH (19:25)
[2022-03-23] MEDS: QUEtiapine FUMARATE 25 MG TABLET PO SCH (19:26)
[2022-03-24] MEDS: ACETAMINOPHEN 325 MG TAB PO PRN ×3 (00:13→20:07)
[2022-03-24] MEDS: LACTATED RINGER'S 1,000 ML IV SCH ×9 (00:14→17:35)
[2022-03-24] MEDS: HYDROmorphone INJ 0.5 MG/0.5 ML SYR IV PRN ×3 (06:01→17:50)
[2022-03-24] MEDS: LACTULOSE SYRUP 20 GM/30 ML UDC PO SCH (07:20)
[2022-03-24] MEDS: levETIRAcetam 500 MG TAB PO SCH ×2 (07:21→20:07)
[2022-03-24] MEDS: lamoTRIgine 100 MG TAB PO SCH ×2 (07:22→20:07)
[2022-03-24] MEDS: rifAXIMin 550 MG TABLET PO SCH ×2 (07:22→20:07)
[2022-03-24] MEDS: allopurinoL 300 MG TAB PO SCH (07:23)
[2022-03-24] MEDS: nadoloL 40 MG TAB PO SCH (07:23)
[2022-03-24] MEDS: THIAMINE HCL 100 MG TAB PO SCH (07:23)
[2022-03-24 07:34] LABS: Hematocrit (blood only) 33.7 % (40.1-51.0); Hemoglobin 11.8 g/dl (14.0-18.0); Mean Corpuscular Hemoglobin 34.7 pg (25.0-34.0); Mean Corpuscular Volume 99.1 fL (80.0-100.0); Mean Platelet Volume 9.6 fL (9.4-12.4); Platelet Count 82 K/uL (130-400); RDW Coefficient of Variation 12.9 % (11.5-14.5); RDW Standard Deviation 46.9 fL (36.4-46.3); White Blood Count 4.96 K/ul (4.8-10.8)
[2022-03-24 07:43] LABS: INR 1.2 (0.9-1.1); Prothrombin Time 12.9 Seconds (9.0-12.0)
[2022-03-24 07:46] LABS: BUN Creatinine Ratio 14.7 (10-20); Calcium 8.3 mg/dl (8.5-10.1); Creatinine Clr Calc Pharmacy 135.5 ml/min; Est GFR (African American) 116.4 ml/min; Est GFR (Non-African American) 100.4 ml/min
[2022-03-24 08:04] LABS: Albumin Level 3.1 gm/dl (3.4-5.0); Bilirubin Direct 0.8 mg/dl (0-0.2); Bilirubin,Total 1.9 mg/dl (0.2-1.0); Total Protein 6.3 gm/dl (6.0-8.3)
--- NOTE | 2022-03-24 08:29 | Hospitalist Progress Note ---
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 Lipase improved today to 749 NPO Was on 125/hr over night per patient only had one dark colored urine IVFs LR increased to 250/hr (has normal EF 60-65%, no RWMA and normal ventricular systolic function on echo Jan 2022) Continue to closely monitor abdominal exam, vital and labs Repeat CBC and BMP in AM Dilaudid 0.5mg q 6 hours as needed for pain (2) Alcoholic cirrhosis: Plan: Per patient last alcohol use December Continue Xifaxan, Lactulose Discussed the importance of lactulose and the need for 2-4 loose BMs daily Continue complete ETOH abstinence Continue to follow with hepatology Dr Jessica Schaffer at [place] (last AFP this EMR was 05/14 and was normal, last U/S 08/12) Daily INR, BMP and LFTs (3) Seizure disorder: Plan: Continue Keppra 1500mg BID Continue Lamotrigine 300 BID Continue seizure precautions (4) Hypertension: Plan: Change Metoprolol 75mg BID to Nadolol 80 mg once daily starting today Continue to closely monitor BP, May need to increase nadolol (5) Esophageal varices: Plan: Changed Beta kennedi to a nonselective Beta kennedi see above (6) Constipation: Plan: Continue Lactulose Goal for 2-3 loose BMs daily (7) Left leg pain: Plan: Xray with no fracture or acute changes following trauma elevation ice as needed tylenol as needed Plan Full code NPO on LR IVFs Increased LR to 250/hour for 6 hours, patient had increased urination and decrease in abdominal pain. He also stated his urine was promotions specialist in color.Decreased LR back to 125/hour. Hope to discontinue IVFs and start clear liquids tomorrow Admission and Anticipated Discharge Date Admission Date: March 23, 2022 Supervising Physician Co-Signing Physician Notes PA Supervision Note: I did not personally see or examine the patient. I verified all redmond points and agree with AL Quevedo with the following exceptions and/or additions: none Admission for pancreatitis. History of alcohol use, reports no use for 6 weeks. IVF at increased rate briefly today, but decreased and plan to transition to PO intake tomorrow if pain continuing to improve. Dilaudid prn dosing for pain as needed. Lipase improved significantly today. Will have EUS in the future, per determination of outpatient GI. Labs, nursing notes, vitals reviewed Subjective Patient is awake sitting up in bed watching TV. He states he is feeling slightly better today. But he only urinated once thru the night and was dark in color. Review of Systems Constitutional: + fatigue; no fever, no chills, no body aches and no weight loss Ear, Nose, Mouth, Throat: + post nasal drip; no ear pain, no epistaxis and no sinus pain/pressure Respiratory: + pain on inspiration; no cough, no chest congestion and no hemoptysis Cardiovascular: no chest pain, no dyspnea, no lightheadedness, no syncope and no calf pain Gastrointestinal: + abdominal pain and + bloating; no nausea, no vomiting and no blood in stools Genitourinary: + as per Subjective / HPI; no dysuria Musculoskeletal: + back pain; no neck pain, no joint pain and no limited range of motion Integumentary: abrasion left lower leg Neurologic: Hx TBI Physical Exam Constitutional: WD/WN, vitals as above Neck: trachea midline, no thyromegaly Respiratory: normal respiratory effort, lungs clear to auscultation saturating well on RA, No respiratory distress, patient states it hurts to take deep breaths with the abdominal pain Cardiovascular: RRR, no murmur, no edema Extremities: no calf tenderness and no edema Gastrointestinal (Abdomen): Inspection/Auscultation: abdomen normal to inspection, + abdomen distended and normal bowel sounds Percussion/Palpation: + abdomen tender and + guarding; no hepatomegaly and no abdominal mass tender to palpation epigastric and right and left upper quadrants, voluntary guarding Skin: no rashes, warm and dry peripheral vascular skin discolrations lower extremities Psychiatric: A+Ox3, euthymic affect Results & Data Results & Data ([facility]) Vital Signs (Past 12 Hours) Vital Signs Temp Pulse Resp BP Pulse Ox O2 Del Method 03/24/22 07:11 36.9 C 71 16 124/72 91 Room Air Laboratory Results Abnormal lab results 03/24/22 03/24/22 03/24/22 Range/Units 06:58 06:58 06:58 RBC 3.40 L (4.63-6.08) M/uL Hgb 11.8 L (14.0-18.0) g/dl Hct 33.7 L (40.1-51.0) % MCH 34.7 H (25.0-34.0) pg RDW Std Deviation 46.9 H (36.4-46.3) fL Plt Count 82 L (130-400) K/uL PT 12.9 H (9.0-12.0) Seconds INR 1.2 H (0.9-1.1) Calcium 8.3 L (8.5-10.1) mg/dl Total Bilirubin 1.9 H (0.2-1.0) mg/dl Direct Bilirubin 0.8 H (0-0.2) mg/dl AST 59 H (13-39) U/L Alkaline Phosphatase 237 H (34-104) U/L Albumin 3.1 L (3.4-5.0) gm/dl Lipase 796 H (11-82) U/L PG Care Time/CCT Total # of Minutes Spent Total Time Spent with Patient: Total time spent is greater than 50% in coordination of care (as documented) at patient's floor/unit and/or counseling patient: Coding Level of Care Code 31188 Subseq Hosp Care Lvl 3 Diagnoses Pancreatitis, acute K85.90 Alcoholic cirrhosis K70.30 Seizure disorder G40.909 Hypertension I10 Esophageal varices I85.00 Constipation K59.00 Left leg pain M79.605
[2022-03-24] MEDS: TAMSULOSIN HCL 0.4 MG CAP PO SCH (20:07)
[2022-03-24] MEDS: QUEtiapine FUMARATE 25 MG TABLET PO SCH (20:07)
[2022-03-25] MEDS: HYDROmorphone INJ 0.5 MG/0.5 ML SYR IV PRN ×3 (00:03→19:58)
[2022-03-25] MEDS: MELATONIN 3 MG TAB PO PRN ×2 (00:03→22:33)
[2022-03-25] MEDS: LACTATED RINGER'S 1,000 ML IV SCH ×3 (00:10→15:58)
[2022-03-25] MEDS: ACETAMINOPHEN 325 MG TAB PO PRN ×3 (04:41→13:13)
[2022-03-25] MEDS: nadoloL 40 MG TAB PO SCH (07:11)
[2022-03-25] MEDS: THIAMINE HCL 100 MG TAB PO SCH (07:12)
[2022-03-25] MEDS: lamoTRIgine 100 MG TAB PO SCH ×2 (07:12→19:59)
[2022-03-25] MEDS: levETIRAcetam 500 MG TAB PO SCH ×2 (07:12→19:59)
[2022-03-25] MEDS: rifAXIMin 550 MG TABLET PO SCH ×2 (07:12→19:59)
[2022-03-25] MEDS: LACTULOSE SYRUP 20 GM/30 ML UDC PO SCH (07:13)
[2022-03-25] MEDS: allopurinoL 300 MG TAB PO SCH (07:13)
[2022-03-25 07:22] LABS: Hematocrit (blood only) 33.9 % (40.1-51.0); Hemoglobin 12.2 g/dl (14.0-18.0); Mean Platelet Volume 9.4 fL (9.4-12.4); Platelet Count 77 K/uL (130-400)
[2022-03-25 07:30] LABS: INR 1.2 (0.9-1.1); Prothrombin Time 12.8 Seconds (9.0-12.0)
[2022-03-25 07:51] LABS: Albumin Level 3.2 gm/dl (3.4-5.0); BUN Creatinine Ratio 13.6 (10-20); Bilirubin Direct 0.8 mg/dl (0-0.2); Bilirubin,Total 1.8 mg/dl (0.2-1.0); Est GFR (African American) 122.7 ml/min; Est GFR (Non-African American) 105.8 ml/min; Potassium 3.9 mmol/L (3.5-5.1); Total Protein 6.8 gm/dl (6.0-8.3)
[2022-03-25 07:53] LABS: Mean Corpuscular Hemoglobin 35.2 pg (25.0-34.0); Mean Corpuscular Volume 97.7 fL (80.0-100.0); RDW Coefficient of Variation 12.4 % (11.5-14.5); RDW Standard Deviation 44.2 fL (36.4-46.3); Red Blood Count 3.47 M/uL (4.63-6.08)
[2022-03-25] MEDS ORDERED: nadoloL 40 MG TAB PO ONE (08:15)
--- NOTE | 2022-03-25 09:06 | Hospitalist Progress Note ---
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 Lipase improved 03/23/22 to 749 Continue to closely monitor abdominal exam, vital and labs Repeat CBC and BMP in AM Will stop IVFs and will start clear liquid diet Dilaudid 0.5mg q 6 hours as needed for pain (2) Alcoholic cirrhosis: Plan: Per patient last alcohol use December Continue Xifaxan, Lactulose Discussed the importance of lactulose and the need for 2-4 loose BMs daily Continue complete ETOH abstinence Continue to follow with hepatology Dr Jessica Schaffer at [place] (last AFP this EMR was 05/14 and was normal, last U/S 08/12) Daily INR, BMP and LFTs Discussed Low sodium diet with patient (3) Seizure disorder: Plan: Continue Keppra 1500mg BID Continue Lamotrigine 300 BID Continue seizure precautions (4) Hypertension: Plan: Change Metoprolol 75mg BID to Nadolol 100mg once daily (per pharmacy equivalent of 75 BID of atenolol is 120 Nadolol) Continue to closely monitor BP (5) Esophageal varices: Plan: Changed Beta kennedi to a nonselective Beta kennedi see above Continue to follow with hepatology at [place] and GI (6) Constipation: Plan: Continue Lactulose Goal for 2-3 loose BMs daily (7) Left leg pain: Plan: Xray with no fracture or acute changes following trauma elevation ice as needed tylenol as needed (8) Chronic venous insufficiency: Plan: Discussed elevation of extremities and support stockings (9) Headache: Plan: Patient has a history of migraine headaches and is on Nurtec at home. Patient states he always gets headaches when he is in the hospital Will try IV dose of Benadryl 50 gm x 1 Tylenol as needed Plan Full code clear liquids Admission and Anticipated Discharge Date Admission Date: March 23, 2022 Supervising Physician Co-Signing Physician Notes PA Supervision Note: I did not personally see or examine the patient. I verified all redmond points and agree with AL Quevedo with the following exceptions and/or additions: none Admission for pancreatitis. Pain improving, can escalate diet to clears and advance further as tolerated. Dilaudid prn dosing for pain as needed. Lipase improved significantly following IV fluids. Will have EUS in the future, per determination of outpatient GI. Subjective Patient is resting in bed. He s complaining of a headache. He states at home he take Nurtec. He states the dilaudi helps his abdominal pain but not his headache. He states he is thirsty. He denies any nausea or vomiting. He denies any chest pain, shortness of breath. Review of Systems Constitutional: + fatigue; no fever, no chills, no body aches and no weight loss Eyes: no blind spots, no diplopia, no eye pain and no photophobia Ear, Nose, Mouth, Throat: + post nasal drip; no ear pain, no epistaxis and no sinus pain/pressure Respiratory: + pain on inspiration; no cough, no chest congestion and no hemoptysis Cardiovascular: no chest pain, no dyspnea, no lightheadedness, no syncope and no calf pain Gastrointestinal: + abdominal pain and + bloating; no nausea, no vomiting and no blood in stools Genitourinary: + as per Subjective / HPI; no dysuria Musculoskeletal: + back pain; no neck pain, no joint pain and no limited range of motion Integumentary: abrasion left lower leg Neurologic: Hx TBI Psychiatric: no anxiety, no confusion and no auditory hallucinations previous alcohol abuse per patient last drink was in December Hematologic / Lymphatic: + easy bruising; no night sweats and no unexplained weight loss Physical Exam Constitutional: WD/WN, vitals as above Eyes: PERRL, conjunctivae normal, anicteric sclerae Neck: trachea midline, no thyromegaly Respiratory: normal respiratory effort, lungs clear to auscultation Cardiovascular: RRR, no murmur, no edema Extremities: no calf tenderness and no edema Gastrointestinal (Abdomen): Inspection/Auscultation: abdomen normal to inspection, + abdomen distended, normal bowel sounds and + hypoactive bowel sounds; Ayala-Hidalgo sign absent Percussion/Palpation: + abdomen tender and + guarding; no hepatomegaly and no abdominal mass Musculoskeletal: no cyanosis or clubbing, extremities motor strength 5/5 Skin: no rashes, warm and dry Neurologic: PERRL, EOMI, accommodation nl, no face palsy, no dysarthria Psychiatric: A+Ox3, euthymic affect Results & Data Results & Data ([facility]) Vital Signs (Past 12 Hours) Vital Signs Temp Pulse Resp BP Pulse Ox O2 Del Method 03/25/22 07:45 36.4 C L 67 16 174/97 H 93 Room Air Laboratory Results Abnormal lab results 03/25/22 03/25/22 03/25/22 Range/Units 06:58 06:58 06:58 RBC 3.47 L (4.63-6.08) M/uL Hgb 12.2 L (14.0-18.0) g/dl Hct 33.9 L (40.1-51.0) % MCH 35.2 H (25.0-34.0) pg Plt Count 77 L (130-400) K/uL PT 12.8 H (9.0-12.0) Seconds INR 1.2 H (0.9-1.1) Total Bilirubin 1.8 H (0.2-1.0) mg/dl Direct Bilirubin 0.8 H (0-0.2) mg/dl AST 47 H (13-39) U/L Alkaline Phosphatase 224 H (34-104) U/L Albumin 3.2 L (3.4-5.0) gm/dl PG Care Time/CCT Total # of Minutes Spent Total Time Spent with Patient: Total time spent is greater than 50% in coordination of care (as documented) at patient's floor/unit and/or counseling patient: Coding Level of Care Code 14892 Subseq Hosp Care Lvl 3 Diagnoses Pancreatitis, acute K85.90 Alcoholic cirrhosis K70.30 Seizure disorder G40.909 Hypertension I10 Esophageal varices I85.00 Constipation K59.00 Left leg pain M79.605 Chronic venous insufficiency I87.2 Headache R51.9
[2022-03-25] MEDS ORDERED: diphenhydrAMINE 50 MG/ML VIAL IV STA (16:31)
[2022-03-25] MEDS: QUEtiapine FUMARATE 25 MG TABLET PO SCH (19:59)
[2022-03-25] MEDS: TAMSULOSIN HCL 0.4 MG CAP PO SCH (19:59)
[2022-03-26 06:14] LABS: Hematocrit (blood only) 35.6 % (40.1-51.0); Hemoglobin 13.1 g/dl (14.0-18.0); Mean Platelet Volume 8.7 fL (9.4-12.4); Platelet Count 95 K/uL (130-400); White Blood Count 4.88 K/ul (4.8-10.8)
[2022-03-26 06:29] LABS: INR 1.2 (0.9-1.1); Prothrombin Time 12.2 Seconds (9.0-12.0)
[2022-03-26 06:38] LABS: Albumin Level 3.4 gm/dl (3.4-5.0); BUN Creatinine Ratio 11.9 (10-20); Bilirubin Direct 0.6 mg/dl (0-0.2); Bilirubin,Total 1.6 mg/dl (0.2-1.0); Calcium 9.2 mg/dl (8.5-10.1); Creatinine Clr Calc Pharmacy 151.7 ml/min; Est GFR (African American) 121.9 ml/min; Est GFR (Non-African American) 105.2 ml/min; Potassium 3.7 mmol/L (3.5-5.1); Total Protein 7.4 gm/dl (6.0-8.3)
[2022-03-26 06:42] LABS: Mean Corpuscular Hgb Conc 36.8 g/dL (32.0-36.0); Mean Corpuscular Volume 95.2 fL (80.0-100.0); RDW Coefficient of Variation 12.2 % (11.5-14.5); RDW Standard Deviation 42.6 fL (36.4-46.3); Red Blood Count 3.74 M/uL (4.63-6.08)
[2022-03-26] MEDS: rifAXIMin 550 MG TABLET PO SCH ×2 (07:17→20:14)
[2022-03-26] MEDS: LACTULOSE SYRUP 20 GM/30 ML UDC PO SCH (07:17)
[2022-03-26] MEDS: nadoloL 40 MG TAB PO SCH (07:18)
[2022-03-26] MEDS: levETIRAcetam 500 MG TAB PO SCH ×2 (07:18→20:14)
[2022-03-26] MEDS: lamoTRIgine 100 MG TAB PO SCH ×2 (07:19→20:15)
[2022-03-26] MEDS: allopurinoL 300 MG TAB PO SCH (07:19)
[2022-03-26] MEDS: THIAMINE HCL 100 MG TAB PO SCH (07:19)
[2022-03-26] MEDS: ACETAMINOPHEN 325 MG TAB PO PRN ×2 (07:21→20:14)
[2022-03-26] MEDS: SPIRONOLACTONE 25 MG TAB PO SCH (11:58)
--- NOTE | 2022-03-26 15:04 | Hospitalist Progress Note ---
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 Lipase normal today Continue to closely monitor abdominal exam, vital and labs Repeat labs in the morning Will advance diet to low fat, low sodium heart healthy diet Patient has not required any Dilaudid today (2) Alcoholic cirrhosis: Plan: Per patient last alcohol use December Continue Xifaxan, Lactulose Discussed the importance of lactulose and the need for 2-4 loose BMs daily Continue complete ETOH abstinence Continue to follow with hepatology Dr Jessica Schaffer at [place] (last [facility] this EMR was 05/14 and was normal, last U/S 08/12) Daily INR, BMP and LFTs Discussed Low sodium diet with patient Started low sodium diet today Also restarted Aldactone 50mg one daily today (confirmed this medication was s tarted in December) (3) Seizure disorder: Plan: Continue Keppra 1500mg BID Continue Lamotrigine 300 BID Continue seizure precautions (4) Hypertension: Plan: Change Metoprolol 75mg BID to Nadolol 100mg once daily (per pharmacy equivalent of 75 BID of atenolol is 120 Nadolol) Continue to closely monitor BP Also restarted Aldactone today (5) Esophageal varices: Plan: Changed Beta kennedi to a nonselective Beta kennedi see above Continue to follow with hepatology at [place] and GI (6) Constipation: Plan: Continue Lactulose Goal for 2-3 loose BMs daily (7) Left leg pain: Plan: Xray with no fracture or acute changes following trauma elevation ice as needed tylenol as needed (8) Chronic venous insufficiency: Plan: Discussed elevation of extremities and support stockings (9) Headache: Plan: Patient has a history of migraine headaches and is on Nurtec at home. Patient states he always gets headaches when he is in the hospital Tylenol as needed Plan Full code low sodium, low fat heart healthy diet Admission and Anticipated Discharge Date Admission Date: March 23, 2022 Supervising Physician Co-Signing Physician Notes PA Supervision Note: I did not personally see or examine the patient. I verified all redmond points and agree with AL Quevedo with the following exceptions and/or additions: none Subjective Patient is awake in bed and states his abdominal pain has significantly improved. He is tolerating the clear liquid diet. He is moving his bowels and they are soft to liquid. He has had no N/V. He has only a mild headache. Patient denies any chest pain or SOB Review of Systems Constitutional: + fatigue; no fever, no chills, no body aches and no weight loss Eyes: no blind spots, no diplopia, no eye pain and no photophobia Ear, Nose, Mouth, Throat: + post nasal drip; no ear pain, no epistaxis and no sinus pain/pressure Respiratory: + pain on inspiration; no cough, no chest congestion and no hemoptysis Cardiovascular: no chest pain, no dyspnea, no lightheadedness, no syncope and no calf pain Gastrointestinal: + abdominal pain and + bloating; no nausea, no vomiting and no blood in stools Genitourinary: + as per Subjective / HPI; no dysuria Musculoskeletal: + back pain; no neck pain, no joint pain and no limited range of motion Integumentary: abrasion left lower leg Neurologic: + headache(s); no seizure-like activity and no syncope Hx TBI Psychiatric: no anxiety, no confusion and no auditory hallucinations previous alcohol abuse per patient last drink was in December Hematologic / Lymphatic: + easy bruising; no night sweats and no unexplained weight loss Physical Exam Constitutional: WD/WN, vitals as above Eyes: PERRL, conjunctivae normal, anicteric sclerae Neck: trachea midline, no thyromegaly (neck supple ) Respiratory: normal respiratory effort, lungs clear to auscultation Cardiovascular: RRR, no murmur, no edema Extremities: no calf tenderness and no edema Gastrointestinal (Abdomen): Inspection/Auscultation: abdomen normal to inspection, + abdomen distended and + hyperactive bowel sounds Percussion/Palpation: + abdomen tender and + guarding; no hepatomegaly and no abdominal mass Musculoskeletal: no cyanosis or clubbing, extremities motor strength 5/5 Skin: no rashes, warm and dry Neurologic: PERRL, EOMI, accommodation nl, no face palsy, no dysarthria Psychiatric: A+Ox3, euthymic affect Results & Data Results & Data ([facility]) Vital Signs (Past 12 Hours) Vital Signs Temp Pulse Resp BP Pulse Ox O2 Del Method 03/26/22 07:39 36.8 C 69 16 174/95 H 96 Room Air Laboratory Results Abnormal lab results 03/26/22 03/26/22 03/26/22 Range/Units 05:59 05:59 05:59 RBC 3.74 L (4.63-6.08) M/uL Hgb 13.1 L (14.0-18.0) g/dl Hct 35.6 L (40.1-51.0) % MCH 35.0 H (25.0-34.0) pg MCHC 36.8 H (32.0-36.0) g/dL Plt Count 95 L (130-400) K/uL MPV 8.7 L (9.4-12.4) fL PT 12.2 H (9.0-12.0) Seconds INR 1.2 H (0.9-1.1) Total Bilirubin 1.6 H (0.2-1.0) mg/dl Direct Bilirubin 0.6 H (0-0.2) mg/dl AST 42 H (13-39) U/L Alkaline Phosphatase 230 H (34-104) U/L PG Care Time/CCT Total # of Minutes Spent Total Time Spent with Patient: Total time spent is greater than 50% in coordination of care (as documented) at patient's floor/unit and/or counseling patient: Coding Level of Care Code 89181 SUB INP/OBS CARE 2/35MIN Diagnoses Pancreatitis, acute K85.90 Alcoholic cirrhosis K70.30 Seizure disorder G40.909 Hypertension I10 Esophageal varices I85.00 Constipation K59.00 Left leg pain M79.605 Chronic venous insufficiency I87.2 Headache R51.9
[2022-03-26] MEDS: TAMSULOSIN HCL 0.4 MG CAP PO SCH (20:14)
[2022-03-26] MEDS: QUEtiapine FUMARATE 25 MG TABLET PO SCH (20:15)
[2022-03-26] MEDS: MELATONIN 3 MG TAB PO PRN (22:12)
[2022-03-27] MEDS: lamoTRIgine 100 MG TAB PO SCH (08:44)
[2022-03-27] MEDS: rifAXIMin 550 MG TABLET PO SCH (08:45)
[2022-03-27] MEDS: THIAMINE HCL 100 MG TAB PO SCH (08:45)
[2022-03-27] MEDS: nadoloL 40 MG TAB PO SCH (08:45)
[2022-03-27] MEDS: LACTULOSE SYRUP 20 GM/30 ML UDC PO SCH (08:45)
[2022-03-27] MEDS: levETIRAcetam 500 MG TAB PO SCH (08:45)
[2022-03-27] MEDS: allopurinoL 300 MG TAB PO SCH (08:45)
[2022-03-27] MEDS: SPIRONOLACTONE 25 MG TAB PO SCH (08:45)
[2022-03-27 08:59] LABS: Hematocrit (blood only) 37.3 % (40.1-51.0); Hemoglobin 13.6 g/dl (14.0-18.0); Mean Platelet Volume 9.1 fL (9.4-12.4); Platelet Count 113 K/uL (130-400); White Blood Count 3.93 K/ul (4.8-10.8)
[2022-03-27 09:07] LABS: INR 1.2 (0.9-1.1); Prothrombin Time 12.2 Seconds (9.0-12.0)
[2022-03-27 09:33] LABS: Albumin Level 3.3 gm/dl (3.4-5.0); Bilirubin Direct 0.4 mg/dl (0-0.2); Bilirubin,Total 1.2 mg/dl (0.2-1.0); Total Protein 7.2 gm/dl (6.0-8.3)
[2022-03-27 09:51] LABS: Mean Corpuscular Hemoglobin 35.3 pg (25.0-34.0); Mean Corpuscular Hgb Conc 36.5 g/dL (32.0-36.0); Mean Corpuscular Volume 96.9 fL (80.0-100.0); RDW Coefficient of Variation 12.6 % (11.5-14.5); RDW Standard Deviation 44.1 fL (36.4-46.3); Red Blood Count 3.85 M/uL (4.63-6.08)
--- NOTE | 2022-03-27 12:36 | Discharge Summary ---
Date of Service March 27, 2022 Admission HPI Per Admitting Provider Uvaldo Mendez is a 57 year old male with a past medical history of alcoholic cirrhosis complicated by varices and HE, HTN, CAD, venous insufficiency and recent hospital admission 6 weeks ago for seizures. 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 Per patient he has had no alcohol in the past 6 weeks. He presents to the ER today with right sided and upper abdominal pain that radiates to his back. Per patient, 03/21/22 he was standing beside his tractor and was going to spread salt on his [place] driveway. He turned the tractor on, while standing beside it and did not realize the tractor was in gear and lunged forward knocking him to the ground onto his back. He denies any LOC. He denies any head injury or pain. The tractor ran over his left lower leg. He crawled to the garage and got himself to his 4 cooper and went to shut the tractor off. He said that later that day his upper abdomen began to hurt and he was worried this was from his fall. He admits to nausea and decreased appetite recently but denies any vomiting. He admits to having constipation recently and not taking his lactulose as prescribed. He states that his left leg is "fine" and he is able to walk on the leg but limps slightly. He does have pain to palpation of the left Tibia. He denies any chest pain, SOB. He states due to the abdominal pain it does hurt to take a deep breath. Patient denies ever having pancreatitis in the past and denies ever having abdominal pain like this ever. He states he has been slightly constipated lately and admits to not always taking his lactulose. He denies any evidence of any GI bleeding. Patient tells me that he follow with hepatology at [facility] Last AFP level in chart was from Apr 2020 and was normal Last U/S RUQ was 07/2021 - Cirrhosis without mass Last EGD in this EMR was July 2020 and revealed gastritis and Grade I varices Admission Exam Per Admitting Provider Constitutional: WD/WN, vitals as above Eyes: PERRL, conjunctivae normal, anicteric sclerae Neck: trachea midline, no thyromegaly Respiratory: normal respiratory effort, lungs clear to auscultation Cardiovascular: RRR, no murmur, no edema Gastrointestinal (Abdomen): Inspection/Auscultation: + abdomen distended and + hypoactive bowel sounds; Ayala-Hidalgo sign absent voluntary guarding, tender to palpation upper abdomen Musculoskeletal: no cyanosis or clubbing, extremities motor strength 5/5 tender to palpation left tibia with ecchymoses and abrasion noted, no amy deformities Skin: ecchymoses upper arms Contusion, swelling and abrasion left tibia, tender to palpation No calf tenderness DP, PT pulses +2 symmetric Neurologic: PERRL, EOMI, accommodation nl, no face palsy, no dysarthria Psychiatric: A+Ox3, euthymic affect Principal Diagnosis acute pancreatitis Discharge Exam Constitutional WD/WN, vitals as above Eyes PERRL, conjunctivae normal, anicteric sclerae Neck trachea midline, no thyromegaly (neck supple ) Respiratory normal respiratory effort, lungs clear to auscultation Cardiovascular RRR, no murmur, no edema Extremities: no calf tenderness and no edema Gastrointestinal (Abdomen) Inspection/Auscultation: abdomen normal to inspection, + abdomen distended, normal bowel sounds, + hyperactive bowel sounds and + hypoactive bowel sounds; Ayala-Hidalgo sign absent Percussion/Palpation: + abdomen tender and + guarding; no hepatomegaly and no abdominal mass Musculoskeletal no cyanosis or clubbing, extremities motor strength 5/5 Skin no rashes, warm and dry Neurologic PERRL, EOMI, accommodation nl, no face palsy, no dysarthria Psychiatric A+Ox3, euthymic affect Discharge Data Allergies Allergy/AdvReac Type Severity Reaction Status Date / Time No Known Allergies Allergy Verified 03/23/22 02:22 Consultations 03/23/22 08:02 ED Decision to Admit Stat Ordered Studies 03/23/22 02:02 CT abd pelvis IV con only Urgent 03/23/22 11:25 MR MRCP Stat Hospital Course (1) Pancreatitis, acute: 57 year old male with a history of alcohol abuse (last use 5 weeks ago per patient) presented after a [place] accident with upper abdominal pain, CT changes of acute pancreatitis and lipase 48825 on admission Bilirubin was elevated and thus a MRCP was ordered with no evidence of any choledocholithiasis or cholecystitis Possible IPMNs recommend EUS and/or repeat imaging 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 Lipase normalized yesterday Tolerating low fat, low sodium heart healthy diet Patient has not required any Dilaudid past 36 hours (2) Alcoholic cirrhosis: Per patient last alcohol use December Continue Xifaxan, Lactulose Discussed the importance of lactulose and the need for 2-4 loose BMs daily Continue complete ETOH abstinence Continue to follow with hepatology Dr Jessica Schaffer at [facility] (last AFP this EMR was 05/14 and was normal, last U/S 08/12) Daily INR, BMP and LFTs Discussed Low sodium diet with patient Started low sodium diet today Also restarted Aldactone 50mg one daily yesterday (confirmed this medication was started in December) (3) Seizure disorder: Continue Keppra 1500mg BID Continue Lamotrigine 300 BID Continue seizure precautions (4) Hypertension: Change Metoprolol 75mg BID to Nadolol 100mg once daily Continue to closely monitor BP Also restarted Aldactone 50mg daily yesterday BP improved today to 135/80 (5) Esophageal varices: Changed Beta kennedi to a nonselective Beta kennedi see above Continue to follow with hepatology at [facility] and GI (6) Constipation: Continue Lactulose Goal for 2-3 loose BMs daily (7) Left leg pain: Xray with no fracture or acute changes following trauma elevation ice as needed (8) Chronic venous insufficiency: Discussed elevation of extremities and support stockings (9) Headache: Patient has a history of migraine headaches and is on Nurtec at home. Patient states he always gets headaches when he is in the hospital Treated in the hospital with tylenol 650mg and also a dose of 50mg Benedryl (10) Pancreatic cyst: Patient to follow up with his [facility] Par[facility] Dr Schaffer at [facility] Patient also to follow up with GI Possibly may need EUS vs repeat MRI with pancreatic protocol in 1 year Plan Full code low sodium, low fat heart healthy diet Total Time Total Time Spent Total Time Spent (In Minutes): 35 Discharge Plan Discharge Items Patient Disposition: Home - Self-Care Reason For Visit: PANCREATITIS Discharge Diagnosis: pancreatitis pancreatic cyst (possible IPMN) Alcohol liver cirrhosis Condition on Discharge: Good Activity: Resume your previous activity Lifting: Gradually increase as tolerated Weightbearing: Full weightbearing Non-emergency contact: Primary Care Provider Call non-emergency contact if: you have any medication questions and your symptoms worsen Follow-up/Referrals: Giana Wan MD [Primary Care Provider] - 04/03/22 2:00 pm Diet: Low Fat and Low Sodium (2gm) Addtl Attending Provider Instructions: You were admitted with abdominal pain and found to have pancreatitis. You liver blood tests were elevated and you had a MRCP that was essentially normal with the exception of some cysts seen in the pancreas and it is recommended that you may need a repeat MRI in 1 year to document stability of the cysts or a GI doctor may do a Endoscopic Ultrasound of the area. You should follow up with your family doctor in 1 week, the GI specialist in 2-3 weeks, and keep your regular scheduled appointment with your golf starter and ranger. You have stated that your last consumption of alcohol was 5-6 weeks ago. It is imparitive that you continue to abstain from ALL Alcohol. You were started on a new medication called Nadolol (Corgard) 100mg to take daily. This medication REPLACES your Metoprolol DO NOT take your metoprolol. This new medication is for your elevated blood pressure and also will help maintain your esophageal varices. You should continue all your other previous medications including Spironolactone 50mg one daily. Stand-Alone Forms: My [facility] Medications and DC Order Prescriptions: New nadolol 40 mg Tablet 100 mg PO QAM Qty: 90 0RF spironolactone 25 mg Tablet 50 mg PO QAM Qty: 30 0RF Continued allopurinol 300 mg tablet 300 mg PO DAILY Qty: 90 3RF thiamine HCl (vitamin B1) [Vitamin B-1] 100 mg tablet 100 mg PO DAILY Qty: 90 3RF quetiapine [Seroquel] 25 mg tablet 25 mg PO HS Qty: 90 3RF magnesium hydroxide [Milk of Magnesia] 400 mg/5 mL suspension 30 ml PO DAILY PRN (Reason: Constipation) Qty: 355 0RF tamsulosin 0.4 mg capsule 0.4 mg PO HS Qty: 90 1RF melatonin 3 mg tablet 3 mg PO HS Qty: 90 3RF magnesium oxide 400 mg (241.3 mg magnesium) tablet 400 mg PO BID Qty: 60 5RF folic acid 1 mg tablet 1 mg PO DAILY Qty: 90 3RF lamotrigine 150 mg tablet 300 mg PO BID 30 Days Qty: 120 5RF Xifaxan 550 mg tablet 550 mg PO BID Qty: 60 0RF levetiracetam [Keppra] 1,000 mg tablet 1,500 mg PO BID Rx Instructions: TOTAL DOSE 1,500 MG--TAKES WITH 250 MG TABS. lactulose 20 gram/30 mL Solution 30 ml PO DAILY Qty: 900 0RF multivitamin with folic acid [Daily-Ellie (with folic acid)] 400 mcg Tablet 1 tab PO QAM Qty: 30 0RF acetaminophen [Tylenol] 325 mg Tablet 650 mg PO Q4H PRN (Reason: Pain (Scale Score 1-3)) cyanocobalamin (vitamin B-12) [Vitamin B-12] 250 mcg Tablet 250 mcg PO DAILY polyethylene glycol 3350 [Miralax] 17 gram/dose Powder 17 g PO QDL PRN (Reason: Constipation) Nurtec ODT 75 mg tablet,disintegrating 75 mg PO DIRECTED PRN (Reason: HEADACHES) levetiracetam 250 mg tablet 500 mg PO BID Qty: 60 5RF Rx Instructions: TOTAL DOSE 1,500 MG--TAKES WITH 1,000 MG TAB. Discontinued metoprolol tartrate 75 mg tablet 75 mg PO BID Qty: 180 3RF bisacodyl 10 mg Suppository 10 mg IL DAILY PRN (Reason: Constipation) Fleet Enema 19-7 gram/118 mL Enema 118 ml IL DAILY PRN (Reason: Constipation) Discharge Orders: Discharge Order (Routine); Ordered 03/27/22 Ordered By: Susanne Watts/Other Patient Handouts: Treating Cirrhosis, Understanding Cirrhosis, Understanding Pancreatitis, Pancreatitis Acute Dc Admission Data Admit Date/Time: 03/23/22 08:23 Attending Provider: Kiera Estrada Admit Provider: Tri Rios Primary Care Provider: Giana Wan Other Providers: Tri Rios Other Interventions: Discharge Summary Assessment (RN) Last Done: 03/27/22 14:33 Supervising Physician Co-Signing Physician Notes PA Supervision Note: I personally saw and examined the patient. I verified all redmond points and agree with AL Quevedo with the following exceptions and/or additions: Subjective: 57 yo M admitted for pancreatitis, with significant improvement in pain and nausea with IVF -> has been transitioned to regular low fat diet. Doing well without much pain on abdomen. Leg sore from trauma. Otherwise no complaints. Physical exam: Vitals reviewed Gen: Alert and oriented, NAD CV: RRR no mgr nl S1S2 Pulm: CTAB no wcr Abd: +BS soft NT ND no masses Skin: no rashes, warm/dry Neuro: No focal neurologic deficits Labs, Rads, and ECG reviewed Assessment and Plan: Pancreatitis: Improvement in symptoms with IVF, has been escalated to low fat diet on discharge without issues regarding diet tolerance. No IV pain medications for 36 hours, and no Zofran either. History of alcohol use reports last use December. Possibly may need EUS vs repeat MRI with pancreatic protocol in 1 year, per discretion of outpatient GI. Alcoholic cirrhosis, esophageal varices: resumed aldactone, and transitioned metoprolol to nadolol 100mg daily. Follow up PCP/GI. Seizure Hx: continue antiepileptics. Otherwise see assessment and plan above. Coding Level of Care Code HOSP INP/OBS DISCH >30 MIN Diagnoses Pancreatitis, acute K85.90 Alcoholic cirrhosis K70.30 Seizure disorder G40.909 Hypertension I10 Esophageal varices I85.00 Constipation K59.00 Left leg pain M79.605 Chronic venous insufficiency I87.2 Headache R51.9 Pancreatic cyst K86.2 Time Spent (min) 35
== END 2022-03-27 18:37 | disposition home or self-care (01) | DRG 439 ==
LOC: ED 01:19 → SUATTDRO 08:23 → 3E 08:23

== ENCOUNTER 2022-06-21 13:58 | Inpatient (IN) ==
[2022-06-21] MEDS ORDERED: SODIUM CHLORIDE 0.9% 1000ML 1,000 ML IV ONE ×2 (14:09→14:11)
[2022-06-21] MEDS ORDERED: MoRPHine SULFATE 2 MG/ML CARP IV STA (14:11)
[2022-06-21] MEDS ORDERED: ONDANSETRON INJ 2 MG/ML 2 ML VIAL IV STA (14:11)
--- NOTE | 2022-06-21 14:17 | Emergency Department Note ---
Impression & Plan Syncope, Fall, Back pain ED Provider Note NAME: KRISTIN REYES AGE: 57 SEX: M : 1965 ARRIVES VIA: Ambulance INFORMANT: Patient ED PROVIDER(S): Chad Braden DO CHIEF COMPLAINT: falls HPI: Patient is a 57-year-old male who presents the ER for recurrent falls this week. He has a past medical history of impaired mobility, alcohol abuse, encephalopathy, seizures, and CAD. He notes that intermittently when he is up he has been seeing white lights and he falls to the ground. He admits to some tingling in his bilateral hands. He does have a headache. He admits to diffuse back pain and anterior chest wall pain. No leg pain. No weakness. No other exacerbating or remitting factors. He denies any blood thinners. PAST MEDICAL HISTORY:See Below PAST SURGICAL HISTORY:See Below FAMILY HISTORY:See Below SOCIAL HISTORY:See Below HOME MEDICATIONS:See Below ALLERGIES:See Below VITALS:See Below PHYSICAL EXAMINATION: GENERAL: Sitting up in bed, alert, well appearing, well nourished, no distress, non-toxic EYE EXAM: normal conjunctiva. PERRL and EOM's grossly intact. OROPHARYNX: mucous membranes are dry NECK: supple, no nuchal rigidity, no adenopathy, non-tender LUNGS: Clear to auscultation. Normal chest wall mechanics HEART: no murmurs, S1 normal and S2 normal ABDOMEN: abdomen soft, non-tender, normo-active bowel sounds, no masses, no rebound or guarding. BACK: Back is symmetrical on inspection and there is no deformity, no midline tenderness, no CVA tenderness. SKIN: Bruising throughout the mid back UPPER EXTREMITIES: Pain on palpation of left elbow with a small abrasion. No tenderness throughout the proximal or mid humerus. No tenderness throughout the mid or distal forearm or hand on the left. No pain throughout palpation of the entire right upper extremity. LOWER EXTREMITIES: No tenderness through bilateral lower extremities NEURO EXAM: Oriented to person place and time, no focal weakness in the lower extremities or upper extremities. MEDICAL DECISION MAKING: Patient is a 57-year-old male who presents ER for above-stated complaint. External records were reviewed. IV was established. Blood work was obtained. Labs show no significant leukocytosis. No anemia. INR unremarkable. BMP with mild hyponatremia at 131. T. bili and LFTs were unremarkable. Troponin was negative. UA was clean. Alcohol slightly elevated. Question if these are seizures that he is having for syncope but cannot be certain. CT of the head, cervical spine, chest abdomen pelvis thoracic and lumbar spine showed no acute pathology with the exception of pneumonitis. chest x-ray shows no focal infiltrate. Patient was updated in regards to his findings and was given IV Keppra. Case was discussed with the hospitalist for further management and e valuation. Patient was given IV fluids as well. He was also given IV morphine. Triage Nursing notes reviewed. Limited review of prior medical records performed Vital Signs: reviewed and remarkable for no significant abnormalities Differential diagnosis: Differential diagnoses include major intracranial, cervical, spinal, thoracic, abdominal, pelvic and neurologic injury. Fracture, contusion, sprain, strain, laceration, abrasions included as well. ER treatment provided: See below Diagnostics interpreted by me include EKG and cardiac monitoring as listed below: -Cardiac Monitoring: An order was placed for continuous cardiac monitoring. The monitor shows a rate of 70 with sinus rhythm. -ECG: Sinus rhythm rate 65 Left axis No PVCs QTc 445 -Laboratory studies:Interpreted by me as stated above in MDM and shown below. Imaging studies: Xrays: As interpreted by me: Portable AP upright 1 view of the chest shows no focal infiltrate CTs show: CT is as described above in [facility] Consultation(s): Discussed with the hospitalist Dr. Cantu for further evaluation management treatment Procedures:none Critical Care: None Past Med/Surg History Medical History Acute pancreatitis Alcoholic cerebellar degeneration Alcoholic cirrhosis Anemia Chronic venous insufficiency Constipation Coronary artery disease Esophageal varices Gout Headache History of kidney stones Hypertension Left knee DJD Left leg pain Osteoarthritis of right knee Peripheral neuropathy Portal hypertension Right knee DJD Seizure disorder (01/04/13) Situational depression Tremor Surgical History History of anesthesia reaction History of colonoscopy History of cystoscopy History of esophagogastroduodenoscopy (EGD) History of fracture of skull History of umbilical hernia repair History of varicose vein ligation and stripping Family History Father Family history of diabetes mellitus Cardiac disorder Mother Family history of diabetes mellitus Gout Sister Family history of diabetes mellitus Other No family history of adverse response to anesthesia Social History Smoking Status: Former smoker Tobacco Type: Cigarettes Second Hand Exposure: Yes; Hx Alcohol Use: No Hx Substance Use: No Preferred Language: Latvian Communication Ability: Effective Program Counselor Required: No Beliefs That Will Affect Care: None Current Living Situation: Spouse Other Information That Helps Us Care for You: No Feels Safe at Home: Yes Safety Concerns: Feels Safe At This Time Safety Concerns Comment: Concerned about having seizures/falling when home alone Childhood Exposure to Second-Hand Smoke: Yes caffeine: No Assistive Devices: Cane and Walker Allergies Allergies Allergy/AdvReac Type Severity Reaction Status Date / Time No Known Allergies Allergy Verified 06/21/22 17:53 Home Meds Home Medications Medication Instructions Recorded Confirmed acetaminophen 325 mg tablet 650 mg PO Q4H PRN Pain (Scale 09/06/21 06/21/22 (Tylenol) Score 1-3) polyethylene glycol 3350 17 17 g PO QDL PRN Constipation 09/06/21 06/21/22 gram/dose oral powder (Miralax) levetiracetam 500 mg tablet 1,500 mg PO BID 06/21/22 06/21/22 Previous Rx's Medication Instructions Recorded rifaximin 550 mg tablet (Xifaxan) 550 mg PO BID #60 tabs 01/30/21 lactulose 20 gram/30 mL oral 30 ml PO DAILY #900 mL 08/30/21 solution multivitamin with folic acid 400 1 tab PO QAM #30 tabs 08/30/21 mcg tablet (Daily-Ellie (with folic acid)) magnesium hydroxide 400 mg/5 mL 30 ml PO DAILY PRN Constipation 12/06/21 oral suspension (Milk of Magnesia) #355 mL quetiapine 25 mg tablet (Seroquel) 25 mg PO HS #90 tabs 12/06/21 thiamine HCl (vitamin B1) 100 mg 100 mg PO DAILY #90 tabs 12/06/21 tablet (Vitamin B-1) tamsulosin 0.4 mg capsule 0.4 mg PO HS #90 caps 01/02/22 melatonin 3 mg tablet 3 mg PO HS #90 tabs 01/04/22 magnesium oxide 400 mg (241.3 mg 400 mg PO BID #60 tabs 01/30/22 magnesium) tablet folic acid 1 mg tablet 1 mg PO DAILY #90 tabs 02/01/22 spironolactone 25 mg tablet 50 mg PO QAM #30 tabs 03/27/22 allopurinol 300 mg tablet 300 mg PO DAILY #90 tabs 04/15/22 nadolol 40 mg tablet 100 mg PO DAILY #225 tabs 04/25/22 rimegepant 75 mg disintegrating 75 mg PO Q OTHER DAY PRN migraine 05/02/22 tablet (Nurtec ODT) #16 tabs levetiracetam 250 mg tablet 250 mg PO BID #60 tabs 05/08/22 (Keppra) lamotrigine 150 mg tablet 300 mg PO BID 30 days #120 tabs 06/17/22 Results & Data (ED) Vital Signs Vital Signs - 24 hr 06/21/22 14:23 06/21/22 14:23 Temperature 37 C Temperature Source Oral Pulse Rate 63 Respiratory Rate 14 Blood Pressure 145/86 H Blood Pressure Mean 105 Pulse Oximetry 94 Oxygen Delivery Method Room Air Room Air Sepsis New/Unexplained Change in Mental Status No Sepsis Action Taken by Nursing No Action Required Laboratory Data 06/21/22 14:10 06/21/22 14:10 Lab Results 06/21/22 06/21/22 06/21/22 Range/Units 14:10 14:10 14:10 WBC 6.28 (4.8-10.8) K/ul RBC 3.69 L (4.70-6.10) M/uL Hgb 12.7 L (14.0-18.0) g/dl POC Hgb (14.0-18.0) g/dl Hct 34.9 L (42.0-52.0) % POC Hct (42-52) % MCV 94.6 (80.0-100.0) fL MCH 34.4 H (25.0-34.0) pg MCHC 36.4 H (32.0-36.0) g/dL RDW Std Deviation 45.1 (36.4-46.3) fL RDW Coeff of Mindy 13.2 (11.5-14.5) % Plt Count 178 (130-400) K/uL MPV 10.5 (9.4-12.4) fL Immature Gran % (Auto) 0.3 % Neut % (Auto) 77.6 % Lymph % (Auto) 11.3 % [place] % (Auto) 8.9 % Eos % (Auto) 1.4 % Baso % (Auto) 0.5 % Neut # (Auto) 4.87 (1.40-6.50) K/uL Lymph # (Auto) 0.71 L (1.2-3.4) K/uL [place] # (Auto) 0.56 (0.11-0.59) K/uL Eos # (Auto) 0.09 (0-0.50) K/uL Baso # (Auto) 0.03 (0-0.2) K/uL Immature Gran # (Auto) 0.02 (0.01-0.20) K/uL PT Cancelled INR Cancelled POC Sodium (135-144) mmol/L Sodium 131 L (136-145) mmol/L POC Potassium (3.3-5.0) mmol/L Potassium 4.6 (3.5-5.1) mmol/L POC Chloride (101-112) mmol/L Chloride 99 (98-107) mmol/L Carbon Dioxide 27 (21-32) mmol/L POC Total CO2 (24-31) mmol/L Anion Gap 5 (3-11) POC Anion Gap (16-25) mmol/L POC BUN (7-18) mg/dl BUN 15 (6-23) mg/dl Creatinine 0.95 (0.6-1.4) mg/dl POC Creatinine (0.6-1.3) mg/dl Est Cr Clr Drug Dosing Not Reportable Est GFR ( Amer) 101.1 ml/min Est GFR (Non-Af Amer) 87.3 ml/min BUN/Creatinine Ratio 15.8 (10-20) Glucose 99 (70-99(Fasting)) mg/dl POC Glucose (other) (70-99) mg/dl Calcium 9.3 (8.6-10.3) mg/dl POC Ioniz Calcium Lotus (1.12-1.32) mmol/l Total Bilirubin 0.9 (0.2-1.0) mg/dl AST 40 H (13-39) U/L ALT 19 (7-52) U/L Alkaline Phosphatase 165 H (34-104) U/L Troponin I High Sens 5.0 (0-20) pg/ml Total Protein 7.7 (6.0-8.3) gm/dl Albumin 3.5 (3.4-5.0) gm/dl Globulin 4.2 H (2.5-4.0) gm/dl Albumin/Globulin Ratio 0.8 L (0.9-2) Urine Color Urine Appearance (Clear) Urine pH (4.5-7.5) Ur Specific [place] (1.000-1.030) Urine Protein (Negative) Urine Glucose (UA) (Negative) Urine Ketones (Negative) Urine Blood (Negative) Urine Nitrite (Negative) Urine Bilirubin (Negative) Urine Urobilinogen (Negative) Ur Leukocyte Esterase (Negative) Urine WBC (Auto) (0-5) /hpf Urine RBC (Auto) (0-4) /hpf U Hyaline Cast (Auto) (0-5) /lpf U Epithel Cells (Auto) (0-5) /lpf Urine Bacteria (Auto) (Negative) Ethyl Alcohol mg/dL (<10.0) mg/dl SARS-CoV-2, RNA, NAAT (NEGATIVE) 06/21/22 06/21/22 06/21/22 Range/Units 14:10 14:16 14:38 WBC (4.8-10.8) K/ul RBC (4.70-6.10) M/uL Hgb (14.0-18.0) g/dl POC Hgb 12.9 L (14.0-18.0) g/dl Hct (42.0-52.0) % POC Hct 38 L (42-52) % MCV (80.0-100.0) fL MCH (25.0-34.0) pg MCHC (32.0-36.0) g/dL RDW Std Deviation (36.4-46.3) fL RDW Coeff of Mindy (11.5-14.5) % Plt Count (130-400) K/uL MPV (9.4-12.4) fL Immature Gran % (Auto) % Neut % (Auto) % Lymph % (Auto) % [place] % (Auto) % Eos % (Auto) % Baso % (Auto) % Neut # (Auto) (1.40-6.50) K/uL Lymph # (Auto) (1.2-3.4) K/uL [place] # (Auto) (0.11-0.59) K/uL Eos # (Auto) (0-0.50) K/uL Baso # (Auto) (0-0.2) K/uL Immature Gran # (Auto) (0.01-0.20) K/uL PT INR POC Sodium 134 L (135-144) mmol/L Sodium (136-145) mmol/L POC Potassium 4.7 (3.3-5.0) mmol/L Potassium (3.5-5.1) mmol/L POC Chloride 96 L (101-112) mmol/L Chloride (98-107) mmol/L Carbon Dioxide (21-32) mmol/L POC Total CO2 27 (24-31) mmol/L Anion Gap (3-11) POC Anion Gap 16.0 (16-25) mmol/L POC BUN 18 (7-18) mg/dl BUN (6-23) mg/dl Creatinine (0.6-1.4) mg/dl POC Creatinine 1.0 (0.6-1.3) mg/dl Est Cr Clr Drug Dosing Est GFR ( Amer) ml/min Est GFR (Non-Af Amer) ml/min BUN/Creatinine Ratio (10-20) Glucose (70-99(Fasting)) mg/dl POC Glucose (other) 102 H (70-99) mg/dl Calcium (8.6-10.3) mg/dl POC Ioniz Calcium Lotus 1.18 (1.12-1.32) mmol/l Total Bilirubin (0.2-1.0) mg/dl AST (13-39) U/L ALT (7-52) U/L Alkaline Phosphatase (34-104) U/L Troponin I High Sens (0-20) pg/ml Total Protein (6.0-8.3) gm/dl Albumin (3.4-5.0) gm/dl Globulin (2.5-4.0) gm/dl Albumin/Globulin Ratio (0.9-2) Urine Color Urine Appearance (Clear) Urine pH (4.5-7.5) Ur Specific [place] (1.000-1.030) Urine Protein (Negative) Urine Glucose (UA) (Negative) Urine Ketones (Negative) Urine Blood (Negative) Urine Nitrite (Negative) Urine Bilirubin (Negative) Urine Urobilinogen (Negative) Ur Leukocyte Esterase (Negative) Urine WBC (Auto) (0-5) /hpf Urine RBC (Auto) (0-4) /hpf U Hyaline Cast (Auto) (0-5) /lpf U Epithel Cells (Auto) (0-5) /lpf Urine Bacteria (Auto) (Negative) Ethyl Alcohol mg/dL 11.0 H (<10.0) mg/dl SARS-CoV-2, RNA, NAAT NEGATIVE (NEGATIVE) 06/21/22 06/21/22 Range/Units 15:20 15:42 WBC (4.8-10.8) K/ul RBC (4.70-6.10) M/uL Hgb (14.0-18.0) g/dl POC Hgb (14.0-18.0) g/dl Hct (42.0-52.0) % POC Hct (42-52) % MCV (80.0-100.0) fL MCH (25.0-34.0) pg MCHC (32.0-36.0) g/dL RDW Std Deviation (36.4-46.3) fL RDW Coeff of Mindy (11.5-14.5) % Plt Count (130-400) K/uL MPV (9.4-12.4) fL Immature Gran % (Auto) % Neut % (Auto) % Lymph % (Auto) % [place] % (Auto) % Eos % (Auto) % Baso % (Auto) % Neut # (Auto) (1.40-6.50) K/uL Lymph # (Auto) (1.2-3.4) K/uL [place] # (Auto) (0.11-0.59) K/uL Eos # (Auto) (0-0.50) K/uL Baso # (Auto) (0-0.2) K/uL Immature Gran # (Auto) (0.01-0.20) K/uL PT 11.9 INR 1.1 POC Sodium (135-144) mmol/L Sodium (136-145) mmol/L POC Potassium (3.3-5.0) mmol/L Potassium (3.5-5.1) mmol/L POC Chloride (101-112) mmol/L Chloride (98-107) mmol/L Carbon Dioxide (21-32) mmol/L POC Total CO2 (24-31) mmol/L Anion Gap (3-11) POC Anion Gap (16-25) mmol/L POC BUN (7-18) mg/dl BUN (6-23) mg/dl Creatinine (0.6-1.4) mg/dl POC Creatinine (0.6-1.3) mg/dl Est Cr Clr Drug Dosing Est GFR ( Amer) ml/min Est GFR (Non-Af Amer) ml/min BUN/Creatinine Ratio (10-20) Glucose (70-99(Fasting)) mg/dl POC Glucose (other) (70-99) mg/dl Calcium (8.6-10.3) mg/dl POC Ioniz Calcium Lotus (1.12-1.32) mmol/l Total Bilirubin (0.2-1.0) mg/dl AST (13-39) U/L ALT (7-52) U/L Alkaline Phosphatase (34-104) U/L Troponin I High Sens (0-20) pg/ml Total Protein (6.0-8.3) gm/dl Albumin (3.4-5.0) gm/dl Globulin (2.5-4.0) gm/dl Albumin/Globulin Ratio (0.9-2) Urine Color Yellow Urine Appearance Clear (Clear) Urine pH 5.5 (4.5-7.5) Ur Specific [place] 1.013 (1.000-1.030) Urine Protein Negative (Negative) Urine Glucose (UA) Negative (Negative) Urine Ketones Negative (Negative) Urine Blood Negative (Negative) Urine Nitrite Negative (Negative) Urine Bilirubin Negative (Negative) Urine Urobilinogen Negative (Negative) Ur Leukocyte Esterase Trace H (Negative) Urine WBC (Auto) 1-5 (0-5) /hpf Urine RBC (Auto) 0-4 (0-4) /hpf U Hyaline Cast (Auto) 0 (0-5) /lpf U Epithel Cells (Auto) 0-5 (0-5) /lpf Urine Bacteria (Auto) Negative (Negative) Ethyl Alcohol mg/dL (<10.0) mg/dl SARS-CoV-2, RNA, NAAT (NEGATIVE) Administered Medications Thiamine HCl 100 mg/ Syringe 10 mls @ 2 mls/min IV QAM MISTY Stop: 07/21/22 19:59 Last Admin: 06/21/22 20:16 Dose: 2 mls/min Documented By: CASSANDRA Folic Acid 1 mg/ Syringe 10 mls @ 5 mls/min IV QAM MISTY Stop: 07/21/22 19:59 Last Admin: 06/21/22 20:16 Dose: 5 mls/min Documented By: CASSANDRA Discontinued Medications Sodium Chloride (Nss 1000ml) 1,000 mls @ 999 mls/hr IV .Q1H1M ONE Stop: 06/21/22 15:09 Last Infusion: 06/21/22 17:07 Dose: 0 mls/hr Documented By: Admin: 06/21/22 14:17 Dose: 999 mls/hr Documented By: YISSEL Sodium Chloride (Nss 1000ml) 1,000 mls @ 999 mls/hr IV .Q1H1M ONE Stop: 06/21/22 15:11 Last Infusion: 06/21/22 17:07 Dose: 0 mls/hr Documented By: Admin: 06/21/22 14:17 Dose: 999 mls/hr Documented By: YISSEL Ceftriaxone Sodium (Rocephin) 2,000 mg in 70 mls @ 140 mls/hr IV NOW STA Stop: 06/21/22 16:41 Last Infusion: 06/21/22 17:42 Dose: 0 mls/hr Documented By: Admin: 06/21/22 17:10 Dose: 140 mls/hr Documented By: EUGENE Azithromycin 500 mg/ Dextrose 255 mls @ 125 mls/hr IV ONE ONE Stop: 06/21/22 18:14 Last Infusion: 06/21/22 18:52 Dose: 0 mls/hr Documented By: Admin: 06/21/22 16:49 Dose: 125 mls/hr Documented By: EUGENE Levetiracetam 1,000 mg/ Sodium (Chloride) 110 mls @ 440 mls/hr IV NOW STA Stop: 06/21/22 16:36 Last Infusion: 06/21/22 17:12 Dose: 0 mls/hr Documented By: Admin: 06/21/22 16:49 Dose: 440 mls/hr Documented By: EUGENE Ioversol (Optiray 350 100ml) 89 ml IV ONCE ONE Stop: 06/21/22 14:59 Last Admin: 06/21/22 14:58 Dose: 89 ml Documented By: JOAQUIM Morphine Sulfate (Morphine Sulfate 2 Mg/Ml Carp) 2 mg IV NOW STA Stop: 06/21/22 14:12 Last Admin: 06/21/22 14:17 Dose: 2 mg Documented By: YISSEL Morphine Sulfate (Morphine Sulfate 4 Mg/Ml 1 Ml Carp\Vial) 4 mg IV NOW STA Stop: 06/21/22 16:46 Last Admin: 06/21/22 16:49 Dose: 4 mg Documented By: EUGENE Ondansetron HCl (Ondansetron Inj 2 Mg/Ml 2 Ml Vial) 4 mg IV NOW STA Stop: 06/21/22 14:12 Last Admin: 06/21/22 14:17 Dose: 4 mg Documented By: YISSEL Imaging Data Radiologist's Impression: Chest X-Ray 06/21/22 14:09 XR chest 1V portable CLINICAL HISTORY: trauma TECHNIQUE: Single frontal radiograph of the chest was obtained. Comparison: Comparison is made to chest radiograph 01/29/2022 FINDINGS: Exam is limited by patient rotation. Cardiomegaly is noted. Lungs are underinflated. Airspace opacities are noted in the right lung and left upper lung. No evidence of pleural effusion or pneumothorax. There is suggestion of irregularities in the right ribs most prominently in the right lateral fifth rib. IMPRESSION: Airspace opacities in the right greater than left lung which may represent contusion and/or aspiration/atelectasis. Possible rib fractures, tension on CT chest is recommended. ACT 112: Negative or not required by law. Electronically signed by: Gigi Gomez M.D. 06/21/2022 2:[address] 06/21/22 14:09 CT head/brain wo con CLINICAL HISTORY: 57 years-old Male with Trauma. Acute head trauma TECHNIQUE: Multiple axial CT images of the head were obtained without contrast. A dose lowering technique was utilized adhering to the principles of ALARA. COMPARISON: CT cervical spine of same day, head CT 01/30/2022 FINDINGS: No acute intracranial hemorrhage, midline shift, intracranial mass, hydrocephalus, territorial ischemia or abnormal extra-axial collection. Involutional changes with chronic microvascular ischemic disease. No acute calvarial fracture. Chronic defects of the frontal calvarium. Mastoid air cells are clear. Moderate mucosal thickening in the left maxillary sinus. IMPRESSION: No acute intracranial abnormality. ACT 112: Negative or not required by law. The above report was generated using voice recognition software. It may contain grammatical, syntax or spelling errors. Electronically signed by: Rogerio Harvey M.D. 06/21/2022 3:05 PM Abdomen/Pelvis CT 06/21/22 14:10 CT abd pelvis IV con only, CT lumbar spine w con CLINICAL HISTORY: Trauma TECHNIQUE: Helical axial images of the abdomen and pelvis were obtained and displayed. Automated dose lowering techniques and/or adjustment according to patient size were utilized for this exam. Dedicated images of the lumbar spine were obtained. This exam was performed with intravenous contrast. COMPARISON: Comparison is made to CT abdomen pelvis 03/23/2022 FINDINGS: Lower chest: Bibasilar atelectasis versus scarring is seen. Mild cardiomegaly is noted. Liver: Nodular contour of the liver is seen compatible with cirrhosis. Gallbladder and biliary tree: Cholelithiasis is seen without evidence of cholecystitis. No intra- or extrahepatic biliary ductal dilation. Pancreas: Unremarkable, no focal lesions. Spleen: Splenomegaly is noted, the spleen measures 15 cm in craniocaudal dimension. A splenule is incidentally noted. Adrenals: Unremarkable. Kidneys and ureters: There is redemonstration of left hydronephrosis without evidence of obstructive stone, there is pelviectasis and abrupt narrowing in the proximal ureter. Bladder: Unremarkable. Reproductive organs: Unremarkable. Bowel: The appendix is normal. Lymph nodes Retroperitoneal: Unremarkable. Pelvic: Unremarkable. Mesenteric: Unremarkable. Peritoneum: Normal. Vessels: Mild atherosclerotic disease is seen. Numerous varices are seen most prominently about the spleen and esophagus. Abdominal wall: Bilateral fat-containing inguinal hernias are seen. Bones: Degenerative changes in the visualized spine. No acute fractures are seen. There is suggestion of old healed rib fractures. IMPRESSION: 1. No acute abnormalities and in particular no evidence of acute fracture. 2. Cirrhosis with findings of portal hypertension. 3. Cholelithiasis without cholecystitis. 4. Redemonstration of left hydronephrosis without obstructive stone likely due to a UPJ obstruction. ACT 112: Negative or not required by law. Electronically signed by: Gigi Gomez M.D. 06/21/2022 3:[address] 06/21/22 14:10 CT cervical spine wo con CLINICAL HISTORY: Trauma TECHNIQUE: Multidetector row helical CT of the cervical spine was performed without administration of intravenous contrast. Coronal and sagittal reformations were obtained. Automated dose lowering techniques and/or adjustment according to patient size were utilized for this exam. Comparison: None available at the time of this dictation. FINDINGS: No acute fractures or subluxations are identified. Degenerative changes are seen in the visualized spine. The alignment is normal. Soft tissues are unremarkable. IMPRESSION: Degenerative changes without evidence of acute bony injury. ACT 112: Negative or not required by law. Electronically signed by: Gigi Gomez M.D. 06/21/2022 3:[address] 06/21/22 14:[address] WITH CONTRAST; CT THORACIC SPINE WITH IV CONTRAST HISTORY: Acute chest and back trauma status post fall Trauma TECHNIQUE: Multiaxial CT images of the chest and thoracic spine were performed following the IV administration of 89 cc of Optiray. A dose lowering technique was utilized adhering to the principles of ALARA. COMPARISON: CT abdomen and pelvis and lumbar spine studies of same day, CT abdomen and pelvis 03/23/2022, chest CT 07/25/2017 FINDINGS: CT CHEST: Unremarkable thyroid. Partially calcified mediastinal and hilar lymph nodes. Gynecomastia. Moderate cardiomegaly without pericardial effusion. Extensive coronary artery calcifications. No thoracic aortic aneurysm. The opacified pulmonary artery is unremarkable. Mild groundglass and tree-in-bud nodules within the upper lobes right lung base. Mild bronchial wall thickening. There are a few scattered calcified pulmonary granulomata. The central airways appear patent. Unremarkable soft tissues. Cirrhotic liver with splenomegaly and upper abdominal varicosities. Cholelithiasis. Partially imaged left-sided hydronephrosis. Partially imaged chronic right clavicular fracture deformity. Healed chronic bilateral rib fractures. No definite acute fracture identified. CT THORACIC SPINE: Mild superior endplate compression of the T2, T4 vertebral bodies is unchanged. Mild mid thoracic dextroscoliosis. Multilevel bridging osteophytosis with mild to moderate intervertebral disc space narrowing and moderate facet arthrosis. No paravertebral edema. IMPRESSION: 1. No acute posttraumatic intrathoracic abnormality identified. 2. No acute fracture or pneumothorax. 3. Chronic bilateral rib fractures. 4. Mild groundglass and tree-in-bud nodules within the upper lobes and right lung base suggestive of a subtle infectious or inflammatory pneumonitis. 5. Please refer to the CT abdomen and pelvis study of same day for additional findings. ACT 112: Negative or not required by law. Electronically signed by: Rogerio Harvey M.D. 06/21/2022 3:[address] 06/21/22 14:10 CT abd pelvis IV con only, CT lumbar spine w con CLINICAL HISTORY: Trauma TECHNIQUE: Helical axial images of the abdomen and pelvis were obtained and displayed. Automated dose lowering techniques and/or adjustment according to patient size were utilized for this exam. Dedicated images of the lumbar spine were obtained. This exam was performed with intravenous contrast. COMPARISON: Comparison is made to CT abdomen pelvis 03/23/2022 FINDINGS: Lower chest: Bibasilar atelectasis versus scarring is seen. Mild cardiomegaly is noted. Liver: Nodular contour of the liver is seen compatible with cirrhosis. Gallbladder and biliary tree: Cholelithiasis is seen without evidence of cholecystitis. No intra- or extrahepatic biliary ductal dilation. Pancreas: Unremarkable, no focal lesions. Spleen: Splenomegaly is noted, the spleen measures 15 cm in craniocaudal dimension. A splenule is incidentally noted. Adrenals: Unremarkable. Kidneys and ureters: There is redemonstration of left hydronephrosis without evidence of obstructive stone, there is pelviectasis and abrupt narrowing in the proximal ureter. Bladder: Unremarkable. Reproductive organs: Unremarkable. Bowel: The appendix is normal. Lymph nodes Retroperitoneal: Unremarkable. Pelvic: Unremarkable. Mesenteric: Unremarkable. Peritoneum: Normal. Vessels: Mild atherosclerotic disease is seen. Numerous varices are seen most prominently about the spleen and esophagus. Abdominal wall: Bilateral fat-containing inguinal hernias are seen. Bones: Degenerative changes in the visualized spine. No acute fractures are seen. There is suggestion of old healed rib fractures. IMPRESSION: 1. No acute abnormalities and in particular no evidence of acute fracture. 2. Cirrhosis with findings of portal hypertension. 3. Cholelithiasis without cholecystitis. 4. Redemonstration of left hydronephrosis without obstructive stone likely due to a UPJ obstruction. ACT 112: Negative or not required by law. Electronically signed by: Gigi Gomez M.D. 06/21/2022 3:[address] 06/21/22 14:[address] WITH CONTRAST; CT THORACIC SPINE WITH IV CONTRAST HISTORY: Acute chest and back trauma status post fall Trauma TECHNIQUE: Multiaxial CT images of the chest and thoracic spine were performed following the IV administration of 89 cc of Optiray. A dose lowering technique was utilized adhering to the principles of ALARA. COMPARISON: CT abdomen and pelvis and lumbar spine studies of same day, CT abdomen and pelvis 03/23/2022, chest CT 07/25/2017 FINDINGS: CT CHEST: Unremarkable thyroid. Partially calcified mediastinal and hilar lymph nodes. Gynecomastia. Moderate cardiomegaly without pericardial effusion. Extensive coronary artery calcifications. No thoracic aortic aneurysm. The opacified pulmonary artery is unremarkable. Mild groundglass and tree-in-bud nodules within the upper lobes right lung base. Mild bronchial wall thickening. There are a few scattered calcified pulmonary granulomata. The central airways appear patent. Unremarkable soft tissues. Cirrhotic liver with splenomegaly and upper abdominal varicosities. Cholelithiasis. Partially imaged left-sided hydronephrosis. Partially imaged chronic right clavicular fracture deformity. Healed chronic bilateral rib fractu res. No definite acute fracture identified. CT THORACIC SPINE: Mild superior endplate compression of the T2, T4 vertebral bodies is unchanged. Mild mid thoracic dextroscoliosis. Multilevel bridging osteophytosis with mild to moderate intervertebral disc space narrowing and moderate facet arthrosis. No paravertebral edema. IMPRESSION: 1. No acute posttraumatic intrathoracic abnormality identified. 2. No acute fracture or pneumothorax. 3. Chronic bilateral rib fractures. 4. Mild groundglass and tree-in-bud nodules within the upper lobes and right lung base suggestive of a subtle infectious or inflammatory pneumonitis. 5. Please refer to the CT abdomen and pelvis study of same day for additional fi ndings. ACT 112: Negative or not required by law. Electronically signed by: Rogerio Harvey M.D. 06/21/2022 3:35 PM Elbow X-Ray 06/21/22 14:11 XR elbow LT min 3V routine HISTORY: 57 years-old Male l elbow pain . Left elbow pain status post trauma COMPARISON: None TECHNIQUE: 3 views of the left elbow FINDINGS: Mild to moderate osteoarthritis with associated enthesophytes. Mild dorsal soft tissue swelling. No acute fracture, dislocation or large joint effusion. IMPRESSION: No acute fracture or dislocation. ACT 112: Negative or not required by law. The above report was generated using voice recognition software. It may contain grammatical, syntax or spelling errors. Electronically signed by: Rogerio Harvey M.D. 06/21/2022 2:36 PM Discharge Plan Visit Data Chief Complaint: Fall ED Provider: Chad Braden Discharge Problem: Syncope, Fall, Back pain Patient Disposition: Admitted As Inpatient Discharge Instructions Interventions: ED Discharge Assessment Last Done: 06/21/22 18:42
[2022-06-21 14:28] LABS: iSTAT Hemoglobin 12.9 g/dl (14.0-18.0); iSTAT Ionized Calcium 1.18 mmol/l (1.12-1.32); iSTAT Potassium 4.7 mmol/L (3.3-5.0)
--- NOTE | 2022-06-21 14:38 | XRay Report ---
XR elbow LT min 3V routine HISTORY: 57 years-old Male l elbow pain . Left elbow pain status post trauma COMPARISON: None TECHNIQUE: 3 views of the left elbow FINDINGS: Mild to moderate osteoarthritis with associated enthesophytes. Mild dorsal soft tissue swelling. No a cute fracture, dislocation or large joint effusion. IMPRESSION: No acute fracture or dislocation. ACT 112: Negative or not required by law. The above report was generated using voice recognition software. It may contain grammatical, syntax o r spelling errors. Electronically signed by: Rogerio Harvey M.D. 06/21/2022 2:36 PM
--- NOTE | 2022-06-21 14:40 | XRay Report ---
XR chest 1V portable CLINICAL HISTORY: trauma TECHNIQUE: Single frontal radiograph of the chest was obtained. Comparison: Comparison is made to chest radiograph 01/29/2022 FINDINGS: Exam is limited by patient rotation. Cardiomegaly is noted. Lungs are underinflated. Airspace opaciti es are noted in the right lung and left upper lung. No evidence of pleural effusion or pneumothorax. There is suggestion of irregularities in the right ribs most prominently in the right lateral fifth r ib. IMPRESSION: Airspace opacities in the right greater than left lung which may represent contusion and/or aspiratio n/atelectasis. Possible rib fractures, tension on CT chest is recommended. ACT 112: Negative or not required by law. Electronically signed by: Gigi Gomez M.D. 06/21/2022 2:39 PM
[2022-06-21 14:42] LABS: Basophils # (auto) 0.03 K/uL (0-0.2); Basophils % (auto) 0.5 %; Eosinophils # (auto) 0.09 K/uL (0-0.50); Eosinophils % (auto) 1.4 %; Hematocrit (blood only) 34.9 % (42.0-52.0); Hemoglobin 12.7 g/dl (14.0-18.0); Immature Granulocytes # (auto) 0.02 K/uL (0.01-0.20); Immature Granulocytes % (auto) 0.3 %; Lymphocytes # (auto) 0.71 K/uL (1.2-3.4); Lymphocytes % (auto) 11.3 %; Mean Corpuscular Hemoglobin 34.4 pg (25.0-34.0); Mean Corpuscular Hgb Conc 36.4 g/dL (32.0-36.0); Mean Corpuscular Volume 94.6 fL (80.0-100.0); Mean Platelet Volume 10.5 fL (9.4-12.4); Monocytes # (auto) 0.56 K/uL (0.11-0.59); Monocytes % (auto) 8.9 %; Neutrophils # (auto) 4.87 K/uL (1.40-6.50); Neutrophils % (auto) 77.6 %; Platelet Count 178 K/uL (130-400); RDW Coefficient of Variation 13.2 % (11.5-14.5); RDW Standard Deviation 45.1 fL (36.4-46.3); Red Blood Count 3.69 M/uL (4.70-6.10); White Blood Count 6.28 K/ul (4.8-10.8)
[2022-06-21 14:57] LABS: Alanine Aminotransferase 19 U/L (7-52); Albumin Globulin Ratio 0.8 (0.9-2); Albumin Level 3.5 gm/dl (3.4-5.0); Alkaline Phosphatase 165 U/L (34-104); Anion Gap 5 (3-11); Aspartate Aminotransferase 40 U/L (13-39); BUN Creatinine Ratio 15.8 (10-20); Bilirubin,Total 0.9 mg/dl (0.2-1.0); Blood Urea Nitrogen 15 mg/dl (6-23); Calcium 9.3 mg/dl (8.6-10.3); Carbon Dioxide 27 mmol/L (21-32); Chloride 99 mmol/L (98-107); Est GFR (African American) 101.1 ml/min; Est GFR (Non-African American) 87.3 ml/min; Globulin 4.2 gm/dl (2.5-4.0); Glucose 99 mg/dl (70-99(Fasting)); Potassium 4.6 mmol/L (3.5-5.1); Sodium 131 mmol/L (136-145); Total Protein 7.7 gm/dl (6.0-8.3)
--- NOTE | 2022-06-21 14:57 | Electrocardiogram Report ---
Test Reason : Blood Pressure : / mmHG Vent. Rate : 065 BPM Atrial Rate : 065 BPM P-R Int : 160 ms QRS Dur : 080 ms QT Int : 428 ms P-R-T Axes : 036 -41 028 degrees QTc Int : 445 ms Poor data quality, interpretation may be adversely affected Normal sinus rhythm Left axis deviation Abnormal ECG When compared with ECG of 29-JAN-2022 18:04, No significant change was found Confirmed by Saad Blair ([id number]) on 06/21/2022 2:57:24 PM Referred By: Confirmed By:Saad Blair
[2022-06-21] MEDS ORDERED: OPTIRAY 350 100ml IV ONE (14:58)
--- NOTE | 2022-06-21 15:06 | CT Scan Report ---
CT head/brain wo con CLINICAL HISTORY: 57 years-old Male with Trauma. Acute head trauma TECHNIQUE: Multiple axial CT images of the head were obtained without contrast. A dose lowering tech nique was utilized adhering to the principles of ALARA. COMPARISON: CT cervical spine of same day, head CT 01/30/2022 FINDINGS: No acute intracranial hemorrhage, midline shift, intracranial mass, hydrocephalus, territorial ischem ia or abnormal extra-axial collection. Involutional changes with chronic microvascular ischemic disea se. No acute calvarial fracture. Chronic defects of the frontal calvarium. Mastoid air cells are clear. Moderate mucosal thickening in the left maxillary sinus. IMPRESSION: No acute intracranial abnormality. ACT 112: Negative or not required by law. The above report was generated using voice recognition software. It may contain grammatical, syntax o r spelling errors. Electronically signed by: Rogerio Harvey M.D. 06/21/2022 3:05 PM
--- NOTE | 2022-06-21 15:11 | CT Scan Report ---
CT cervical spine wo con CLINICAL HISTORY: Trauma TECHNIQUE: Multidetector row helical CT of the cervical spine was performed without administration of intravenous contrast. Coronal and sagittal reformations were obtained. Automated dose lowering techn iques and/or adjustment according to patient size were utilized for this exam. Comparison: None available at the time of this dictation. FINDINGS: No acute fractures or subluxations are identified. Degenerative changes are seen in the visualized sp ine. The alignment is normal. Soft tissues are unremarkable. IMPRESSION: Degenerative changes without evidence of acute bony injury. ACT 112: Negative or not required by law. Electronically signed by: Gigi Gomez M.D. 06/21/2022 3:09 PM
--- NOTE | 2022-06-21 15:20 | CT Scan Report ---
CT abd pelvis IV con only, CT lumbar spine w con CLINICAL HISTORY: Trauma TECHNIQUE: Helical axial images of the abdomen and pelvis were obtained and displayed. Automated dose lowering techniques and/or adjustment according to patient size were utilized for this exam. Dedicat ed images of the lumbar spine were obtained. This exam was performed with intravenous contrast. COMPARISON: Comparison is made to CT abdomen pelvis 03/23/2022 FINDINGS: Lower chest: Bibasilar atelectasis versus scarring is seen. Mild cardiomegaly is noted. Liver: Nodular contour of the liver is seen compatible with cirrhosis. Gallbladder and biliary tree: Cholelithiasis is seen without evidence of cholecystitis. No intra- or extrahepatic biliary ductal dilation. Pancreas: Unremarkable, no focal lesions. Spleen: Splenomegaly is noted, the spleen measures 15 cm in craniocaudal dimension. A splenule is inc identally noted. Adrenals: Unremarkable. Kidneys and ureters: There is redemonstration of left hydronephrosis without evidence of obstructive stone, there is pelviectasis and abrupt narrowing in the proximal ureter. Bladder: Unremarkable. Reproductive organs: Unremarkable. Bowel: The appendix is normal. Lymph nodes Retroperitoneal: Unremarkable. Pelvic: Unremarkable. Mesenteric: Unremarkable. Peritoneum: Normal. Vessels: Mild atherosclerotic disease is seen. Numerous varices are seen most prominently about the s pleen and esophagus. Abdominal wall: Bilateral fat-containing inguinal hernias are seen. Bones: Degenerative changes in the visualized spine. No acute fractures are seen. There is suggestion of old healed rib fractures. IMPRESSION: 1. No acute abnormalities and in particular no evidence of acute fracture. 2. Cirrhosis with findings of portal hypertension. 3. Cholelithiasis without cholecystitis. 4. Redemonstration of left hydronephrosis without obstructive stone likely due to a UPJ obstruction. ACT 112: Negative or not required by law. Electronically signed by: Gigi Gomez M.D. 06/21/2022 3:19 PM
--- NOTE | 2022-06-21 15:36 | CT Scan Report ---
CHEST CT WITH CONTRAST; CT THORACIC SPINE WITH IV CONTRAST HISTORY: Acute chest and back trauma status post fall Trauma TECHNIQUE: Multiaxial CT images of the chest and thoracic spine were performed following the IV admin istration of 89 cc of Optiray. A dose lowering technique was utilized adhering to the principles of ALARA. COMPARISON: CT abdomen and pelvis and lumbar spine studies of same day, CT abdomen and pelvis 2021, chest CT 07/25/2017 FINDINGS: CT CHEST: Unremarkable thyroid. Partially calcified mediastinal and hilar lymph nodes. Gynecomastia. Moderate c ardiomegaly without pericardial effusion. Extensive coronary artery calcifications. No thoracic aorti c aneurysm. The opacified pulmonary artery is unremarkable. Mild groundglass and tree-in-bud nodules within the upper lobes right lung base. Mild bronchial wall thickening. There are a few scattered calcified pulmonary granulomata. The central airways appear pat ent. Unremarkable soft tissues. Cirrhotic liver with splenomegaly and upper abdominal varicosities. C holelithiasis. Partially imaged left-sided hydronephrosis. Partially imaged chronic right clavicular fracture deformity. Healed chronic bilateral rib fractures. No definite acute fracture identified. CT THORACIC SPINE: Mild superior endplate compression of the T2, T4 vertebral bodies is unchanged. Mild mid thoracic de xtroscoliosis. Multilevel bridging osteophytosis with mild to moderate intervertebral disc space narr owing and moderate facet arthrosis. No paravertebral edema. IMPRESSION: 1. No acute posttraumatic intrathoracic abnormality identified. 2. No acute fracture or pneumothorax. 3. Chronic bilateral rib fractures. 4. Mild groundglass and tree-in-bud nodules within the upper lobes and right lung base suggestive of a subtle infectious or inflammatory pneumonitis. 5. Please refer to the CT abdomen and pelvis study of same day for additional findings. ACT 112: Negative or not required by law. Electronically signed by: Rogerio Harvey M.D. 06/21/2022 3:35 PM
[2022-06-21] MEDS ORDERED: cefTRIAXone SODIUM 2,000 MG/70 ML BAG IV STA (16:12)
[2022-06-21] MEDS ORDERED: AZITHROMYCIN 500 MG in DEXTROSE 5% 250 ML IV ONE (16:12)
[2022-06-21] MEDS ORDERED: levETIRAcetam 1,000 MG in 0.9 % SODIUM CHLORIDE 100 ML IV STA (16:22)
--- NOTE | 2022-06-21 16:36 | History & Physical Report ---
Date of Service June 21, 2022 Assessment & Plan (1) Ataxic gait: Plan: Recurrent falls Multifactorial, history of ataxic gait with alcoholic cerebellar degeneration, chronic deconditioning, cirrhosis and alcohol use. Suspect may be acutely worsened in the setting of pneumonia, has had 2 months of cough. Has had flashing lights concerning for seizures, patient has been taking NyQuil for at least a month for this and is very unclear on how much she is taking.? Dextromethorphan related contribution to hallucinations Left elbow x-ray: No acute fracture/dislocation CTCspine: 1. No acute abnormalities and in particular no evidence of acute fracure.2. Cirrhosis with findings of portal hypertension.3. Cholelithiasis without cholecystitis. 4. Redemonstration of left hydronephrosis without obstructive stone likely due to a UPJ obstruction. - CT- Tspine: 1. No acute posttraumatic intrathoracic abnormality identified.2. No acute fracture or pneumothorax.3. Chronic bilateral rib fractures.4. Mild groundglass and tree-in-bud nodules within the upper lobes and right lung base suggestive of a subtle infectious or inflammatory pneumonitis.5. Please refer to the CT abdomen and pelvis study of same day for additional findings. - CT-Chest: 1. No acute posttraumatic intrathoracic abnormality identified.2. No acute fracture or pneumothorax.3. Chronic bilateral rib fractures.4. Mild groundglass and tree-in-bud nodules within the upper lobes and right lung base suggestive of a subtle infectious or inflammatory pneumonitis. - CT-A/P: 1. No acute abnormalities and in particular no evidence of acute fracture.2. Cirrhosis with findings of portal hypertension.3. Cholelithiasis without cholecystitis.4. Redemonstration of left hydronephrosis without obstructive stone likely due to a UPJ obstruction. CT-H: No acute intracranial abnormality. groundglass and tree-in-bud nodules in upper lobes and right lung base consistent with pneumonitis versus pneumonia High-sensitivity troponin normal Alcohol level of 11.0 on admission. 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 Consulted for reevaluation given patient symptoms with increased flashing lights and LOC. Imaging as noted otherwise Mood Continue Seroquel 25 mg p.o. 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 He reports that while walking he is seeing bright flashing lights and then falls to his hand and has tingling in his hands. Seen at bedside with . Having worsened balance, sometimes uses a cane vs walker. Generally worse in week. went to work this morning and he was in his normal health, but then called his ~1130 after a fall with increased back pain. No AMS or confusion in the last few days. HE reports he has had episodes of bright colors and has been follwoing with Dr. Cade. Thinks he has done worse seen keppra was increased. Currently is taking 1750mg AM/PM per pt which he did not take this morning. No syncope recently per patient, but weak and gets dizzy and 'have to sit down quick.' No chest or chest pressure. No bleeding recently. Dnies vomiting, aspiration, or choking. Has had 'a bad cough for at least a month or two'. Had not been seen for the cough, taking nyquil and dayquil which does not help much. Has been taking nyquil, one bottle lasts a few days per pt. Pt unclear on how much he takes per dose. R distal forarm with skin tear. Medical History: Reviewed Medications: Reviewed Surgical History: Reviewed Family history: Reviewed Allergies: Reviewed Social History: No tobacco use. Denies alcohol use. Code Status: Full Code Allergies Allergy/AdvReac Type Severity Reaction Status Date / Time No Known Allergies Allergy Verified 06/21/22 17:53 Home Medications Medication Instructions Recorded Confirmed Type rifaximin 550 mg tablet (Xifaxan) 550 mg PO BID #60 tabs 01/30/21 06/21/22 Rx lactulose 20 gram/30 mL oral 30 ml PO DAILY #900 mL 08/30/21 06/21/22 Rx solution multivitamin with folic acid 400 1 tab PO QAM #30 tabs 08/30/21 06/21/22 Rx mcg tablet (Daily-Ellie (with folic acid)) acetaminophen 325 mg tablet 650 mg PO Q4H PRN Pain (Scale 09/06/21 06/21/22 History (Tylenol) Score 1-3) polyethylene glycol 3350 17 17 g PO QDL PRN Constipation 09/06/21 06/21/22 History gram/dose oral powder (Miralax) magnesium hydroxide 400 mg/5 mL 30 ml PO DAILY PRN Constipation 12/06/21 06/21/22 Rx oral suspension (Milk of Magnesia) #355 mL quetiapine 25 mg tablet (Seroquel) 25 mg PO HS #90 tabs 12/06/21 06/21/22 Rx thiamine HCl (vitamin B1) 100 mg 100 mg PO DAILY #90 tabs 12/06/21 06/21/22 Rx tablet (Vitamin B-1) tamsulosin 0.4 mg capsule 0.4 mg PO HS #90 caps 01/02/22 06/21/22 Rx melatonin 3 mg tablet 3 mg PO HS #90 tabs 01/04/22 06/21/22 Rx magnesium oxide 400 mg (241.3 mg 400 mg PO BID #60 tabs 01/30/22 06/21/22 Rx magnesium) tablet folic acid 1 mg tablet 1 mg PO DAILY #90 tabs 02/01/22 06/21/22 Rx spironolactone 25 mg tablet 50 mg PO QAM #30 tabs 03/27/22 06/21/22 Rx allopurinol 300 mg tablet 300 mg PO DAILY #90 tabs 04/15/22 06/21/22 Rx nadolol 40 mg tablet 100 mg PO DAILY #225 tabs 04/25/22 06/21/22 Rx rimegepant 75 mg disintegrating 75 mg PO Q OTHER DAY PRN migraine 05/02/22 06/21/22 Rx tablet (Nurtec ODT) #16 tabs levetiracetam 250 mg tablet 250 mg PO BID #60 tabs 05/08/22 06/21/22 Rx (Keppra) lamotrigine 150 mg tablet 300 mg PO BID 30 days #120 tabs 06/17/22 06/21/22 Rx levetiracetam 500 mg tablet 1,500 mg PO BID 06/21/22 06/21/22 History Past Med/Surg History Medical History Acute pancreatitis Alcoholic cerebellar degeneration Alcoholic cirrhosis Anemia Chronic venous insufficiency Constipation Coronary artery disease Esophageal varices Gout Headache History of kidney stones Hypertension Left knee DJD Left leg pain Osteoarthritis of right knee Peripheral neuropathy Portal hypertension Right knee DJD Seizure disorder (01/04/13) Situational depression Tremor Surgical History History of anesthesia reaction History of colonoscopy History of cystoscopy History of esophagogastroduodenoscopy (EGD) History of fracture of skull History of umbilical hernia repair History of varicose vein ligation and stripping Family History Father Family history of diabetes mellitus Cardiac disorder Mother Family history of diabetes mellitus Gout Sister Family history of diabetes mellitus Other No family history of adverse response to anesthesia Social History Smoking Status: Former smoker Tobacco Type: Cigarettes Second Hand Exposure: Yes; Hx Alcohol Use: No Hx Substance Use: No Preferred Language: [place]i Communication Ability: Effective Brazer Electronic Required: No Beliefs That Will Affect Care: None Current Living Situation: Spouse Other Information That Helps Us Care for You: No Feels Safe at Home: Yes Safety Concerns: Feels Safe At This Time Safety Concerns Comment: Concerned about having seizures/falling when home alone Childhood Exposure to Second-Hand Smoke: Yes caffeine: No Assistive Devices: Cane and Walker Review of Systems Review of Systems: All systems reviewed & are unremarkable except as noted in HPI & below Physical Exam Physical Exam: General: A&Ox3. NAD. Cooperative. HEENT: Atraumatic, normocephalic. Patient/hearing intact Pulm: CTAB A&P. -wheezes, -rales, -rhonchi. Symmetrical chest rise. No increased work of breathing. No respiratory distress. Cardiac: RRR, -mrg. Radial pulses intact and symmetrical. Abdominal: Nontender, softly distended, BS diminished Extremities: Warm, dry. Area Forester strength, ankle dorsiflexion/plantarflexion 5/5 although with weak effort. Sensation soft touch is intact in hands and feet. Right distal forearm with skin tear Results & Data Results & Data Vital Signs (Past 12 Hours) Vital Signs Temp Pulse Resp BP Pulse Ox O2 Del Method 06/21/22 14:23 Room Air 06/21/22 14:23 37 C 63 14 145/86 H 94 Room Air PG Care Time/CCT Total # of Minutes Spent Total Time Spent with Patient: Total time spent is greater than 50% in coordination of care (as documented) at patient's floor/unit and/or counseling patient: Coding Level of Care Code 99518 INT INP/OBS CARE 3/75MIN Diagnoses Ataxic gait R26.0 Seizure disorder G40.909 Encephalopathy G93.40 Alcohol use disorder, severe, dependence F10.20 Impaired mobility and endurance Z74.09
[2022-06-21 16:38] LABS: Appearance Urine Clear (Clear); Bacteria Urine Automated Negative (Negative); Bilirubin Urine Negative (Negative); Blood Urine Negative (Negative); Cast Urine Automated 0 /lpf (0-5); Color Urine Yellow; Epithelial Cell Urine Auto 0-5 /lpf (0-5); Glucose Urine UA Negative (Negative); Ketones Urine Negative (Negative); Leukocyte Esterase Urine Trace (Negative); Nitrite Urine Negative (Negative); Protein Urine Negative (Negative); RBC Urine Automated 0-4 /hpf (0-4); Specific Gravity Urine 1.013 (1.000-1.030); Urobilinogen Urine Negative (Negative); pH Urine 5.5 (4.5-7.5)
[2022-06-21] MEDS ORDERED: MoRPHine SULFATE 4 MG/ML 1 ML CARP\\VIAL IV STA (16:45)
[2022-06-21 16:51] LABS: INR 1.1 (0.9-1.1); Prothrombin Time 11.9 Seconds (9.0-12.0)
[2022-06-21] MEDS ORDERED: Ativan IV Alcohol Withdrawal--Active Protocol IV PRN (19:06)
[2022-06-21] MEDS ORDERED: LORazepam 2 MG/1 ML VIAL IV PRN ×4 (19:06)
[2022-06-21] MEDS ORDERED: ACETAMINOPHEN 325 MG TAB PO PRN (19:48)
[2022-06-21] MEDS ORDERED: POLYETHYLENE (MIRALAX) 17 GM PACK PO PRN (19:48)
[2022-06-21] MEDS ORDERED: MAGNESIUM HYDROXIDE SUSP 30 ML UDC PO PRN (19:48)
[2022-06-21] MEDS: THIAMINE HCL 100 MG in SYRINGE 9 ML IV SCH (20:16)
[2022-06-21] MEDS: FOLIC ACID 1 MG in SYRINGE 9.8 ML IV SCH (20:16)
[2022-06-21] MEDS ORDERED: BENZONATATE 100 MG CAPSULE PO PRN (20:50)
[2022-06-21] MEDS ORDERED: IBUPROFEN 600 MG TAB PO PRN (20:51)
[2022-06-21] MEDS ORDERED: levETIRAcetam 250 MG TAB PO SCH (21:00)
[2022-06-21] MEDS: levETIRAcetam 500 MG TAB PO SCH (21:11)
[2022-06-21] MEDS: rifAXIMin 550 MG TABLET PO SCH (21:12)
[2022-06-21] MEDS: TAMSULOSIN HCL 0.4 MG CAP PO SCH (21:12)
[2022-06-21] MEDS: QUEtiapine FUMARATE 25 MG TABLET PO SCH (21:12)
[2022-06-21] MEDS: MAGNESIUM OXIDE 400 MG TAB PO SCH (21:13)
[2022-06-21] MEDS: MELATONIN 3 MG TAB PO SCH (21:13)
[2022-06-21] MEDS: guaiFENesin 600 MG TABCR PO SCH (22:00)
[2022-06-21] MEDS: lamoTRIgine 100 MG TAB PO SCH (22:00)
[2022-06-22 06:56] LABS: Basophils # (auto) 0.02 K/uL (0-0.2); Basophils % (auto) 0.4 %; Eosinophils # (auto) 0.08 K/uL (0-0.50); Eosinophils % (auto) 1.8 %; Hematocrit (blood only) 33.7 % (42.0-52.0); Hemoglobin 11.6 g/dl (14.0-18.0); Immature Granulocytes # (auto) 0.01 K/uL (0.01-0.20); Immature Granulocytes % (auto) 0.2 %; Lymphocytes % (auto) 19.7 %; Mean Corpuscular Hemoglobin 33.8 pg (25.0-34.0); Mean Corpuscular Hgb Conc 34.4 g/dL (32.0-36.0); Mean Corpuscular Volume 98.3 fL (80.0-100.0); Mean Platelet Volume 9.2 fL (9.4-12.4); Monocytes # (auto) 0.55 K/uL (0.11-0.59); Monocytes % (auto) 12.1 %; Neutrophils % (auto) 65.8 %; Platelet Count 103 K/uL (130-400); RDW Coefficient of Variation 13.2 % (11.5-14.5); RDW Standard Deviation 47.1 fL (36.4-46.3); Red Blood Count 3.43 M/uL (4.70-6.10); White Blood Count 4.56 K/ul (4.8-10.8)
[2022-06-22 07:10] LABS: BUN Creatinine Ratio 15.2 (10-20); Creatinine Clr Calc Pharmacy 126.8 ml/min; Est GFR (African American) 113.9 ml/min; Est GFR (Non-African American) 98.3 ml/min; Potassium 4.6 mmol/L (3.5-5.1)
[2022-06-22] MEDS: FOLIC ACID 1 MG in SYRINGE 9.8 ML IV SCH (08:27)
[2022-06-22] MEDS: THIAMINE HCL 100 MG in SYRINGE 9 ML IV SCH (08:27)
[2022-06-22] MEDS: nadoloL 40 MG TAB PO SCH (08:27)
[2022-06-22] MEDS: lamoTRIgine 100 MG TAB PO SCH ×2 (08:27→20:08)
[2022-06-22] MEDS: levETIRAcetam 500 MG TAB PO SCH ×2 (08:27→20:11)
[2022-06-22] MEDS: guaiFENesin 600 MG TABCR PO SCH ×2 (08:27→20:10)
[2022-06-22] MEDS: MULTIVITAMIN TAB PO SCH (08:28)
[2022-06-22] MEDS: rifAXIMin 550 MG TABLET PO SCH ×2 (08:28→20:10)
[2022-06-22] MEDS: SPIRONOLACTONE 25 MG TAB PO SCH (08:28)
[2022-06-22] MEDS: LACTULOSE SYRUP 20 GM/30 ML UDC PO SCH (08:28)
[2022-06-22] MEDS: allopurinoL 300 MG TAB PO SCH (08:28)
[2022-06-22] MEDS: MAGNESIUM OXIDE 400 MG TAB PO SCH ×2 (08:28→20:11)
[2022-06-22] MEDS: DOXYCYCLINE HYCLATE 100 MG CAP PO SCH ×2 (12:22→20:00)
--- NOTE | 2022-06-22 16:54 | Neurology Consultation ---
Date of Consultation June 22, 2022 Assessment & Plan (1) Fall: Impression: The patient recently fell down without loss of consciousness, after feeling dizzy, with bright lights in his vision. There was no tonic-clonic activity, urinary incontinence, and tongue biting. This event lastly secondary to near syncope. Serum alcohol level was higher than normal even though the patient reports an alcohol intake. The patient recently has been having coughing, and his balance has been worsened. Recommendations/plan: We will check the serum levetiracetam and lamotrigine trough levels. Apparently, toxic levels might affect balance. The patient will need to be evaluated by outpatient neurology, for peripheral polyneuropathy. Fall precautions are fully explained to patient. Physical therapy. Patient should use walker during ambulation. (2) Ataxic gait: Impression: The patient has been having imbalance, with frequent falls. Ataxic gait was reported before. He reports recently increased imbalance with falls. 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 Recommendations and plan: Fall precautions. She should use walker during ambulation. Neurology clinic follow-up. (3) Seizure disorder: Impression: The patient has established diagnosis of seizure disorder. Based on chart, the patient has traumatic brain injury, which was the likely cause of seizures. He has been on lamotrigine and levetiracetam with recent therapeutic serum levels. The patient has been compliant and denies any typical seizure or seizure-like activities. Bright light in his vision, when he felt dizzy, likely not due to seizures. Recommendations/plan: We will keep the patient on the current dosage of levetiracetam and lamotrigine. Trough serum levels of low blood levetiracetam and lamotrigine. Follow-up at neurology clinic with Dr. Cade. (4) Alcoholic cerebellar degeneration: Impression: This was reported in the chart. The patient has imbalance and gait disturbance, which was attributed to his alcoholic cerebellar degeneration. Plan As seen above. Thank you for the consultation. History of Present Illness Reason for Consultation: Fall, hx/o seizures Requesting Physician: Tito Weir MD Attending Physician: Tito Weir MD History of Present Illness The patient is a 57-year-old gentleman, with multiple comorbid conditions including alcoholic cirrhosis, history of alcoholism, dizziness, unsteady gait, seizure disorder secondary to traumatic brain injury, and alcoholic cerebellar degeneration, who was brought to emergency department yesterday, after the patient fell down and could not stand up. The patient denies loss of consciousness, or tonic-clonic activity. He was standing up in the house, felt dizzy, with bright lights in his vision, and then fell on his left arm. In emergency department, imaging studies did not show any fracture or injury. The patient reports that he has been having frequent coughing recently. He also complains of low back pain, which has been worse than usual. He has been fo llowed by Dr. Cade at neurology clinic primarily for seizure disorder, and currently on Lamictal 200 mg twice a day and levetiracetam 1250 mg twice a day. He reports that he has been compliant. He has not had any typical seizure activity for a long time. He has no focal neurological deficit. His last serum lamotrigine and levetiracetam levels from few months ago were therapeutic. Recent level is pending. Urine drug screen showed elevated serum alcohol level although the patient reports no intake for a long time. The patient typically ambulates with walker. He has a long history of unsteady gait, which was attributed to alcoholic cerebellar degeneration. However, he also has decreased sensation in distal lower extremities, which is highly suggestive of peripheral polyneuropathy, which would also contribute to the patient's imbalance and frequent falls. I have reviewed the patient's chart including imaging studies and visualized them personally. I have discussed the case with the patient and answered his questions in detail. Allergies Allergy/AdvReac Type Severity Reaction Status Date / Time No Known Allergies Allergy Verified 06/21/22 17:53 Home Medications Medication Instructions Recorded Confirmed Type rifaximin 550 mg tablet (Xifaxan) 550 mg PO BID #60 tabs 01/30/21 06/21/22 Rx lactulose 20 gram/30 mL oral 30 ml PO DAILY #900 mL 08/30/21 06/21/22 Rx solution multivitamin with folic acid 400 1 tab PO QAM #30 tabs 08/30/21 06/21/22 Rx mcg tablet (Daily-Ellie (with folic acid)) acetaminophen 325 mg tablet 650 mg PO Q4H PRN Pain (Scale 09/06/21 06/21/22 History (Tylenol) Score 1-3) polyethylene glycol 3350 17 17 g PO QDL PRN Constipation 09/06/21 06/21/22 History gram/dose oral powder (Miralax) magnesium hydroxide 400 mg/5 mL 30 ml PO DAILY PRN Constipation 12/06/21 06/21/22 Rx oral suspension (Milk of Magnesia) #355 mL quetiapine 25 mg tablet (Seroquel) 25 mg PO HS #90 tabs 12/06/21 06/21/22 Rx thiamine HCl (vitamin B1) 100 mg 100 mg PO DAILY #90 tabs 12/06/21 06/21/22 Rx tablet (Vitamin B-1) tamsulosin 0.4 mg capsule 0.4 mg PO HS #90 caps 01/02/22 06/21/22 Rx melatonin 3 mg tablet 3 mg PO HS #90 tabs 01/04/22 06/21/22 Rx magnesium oxide 400 mg (241.3 mg 400 mg PO BID #60 tabs 01/30/22 06/21/22 Rx magnesium) tablet folic acid 1 mg tablet 1 mg PO DAILY #90 tabs 02/01/22 06/21/22 Rx spironolactone 25 mg tablet 50 mg PO QAM #30 tabs 03/27/22 06/21/22 Rx allopurinol 300 mg tablet 300 mg PO DAILY #90 tabs 04/15/22 06/21/22 Rx nadolol 40 mg tablet 100 mg PO DAILY #225 tabs 04/25/22 06/21/22 Rx rimegepant 75 mg disintegrating 75 mg PO Q OTHER DAY PRN migraine 05/02/22 06/21/22 Rx tablet (Nurtec ODT) #16 tabs lamotrigine 150 mg tablet 300 mg PO BID 30 days #120 tabs 06/17/22 06/21/22 Rx levetiracetam 500 mg tablet 1,500 mg PO BID 06/21/22 06/21/22 History Patient History Medical History Acute pancreatitis Alcoholic cerebellar degeneration Alcoholic cirrhosis Anemia Chronic venous insufficiency Constipation Coronary artery disease Esophageal varices Gout Headache History of kidney stones Hypertension Left knee DJD Left leg pain Osteoarthritis of right knee Peripheral neuropathy Portal hypertension Right knee DJD Seizure disorder (01/04/13) Situational depression Tremor Surgical History History of anesthesia reaction "was out strong enough for scope to go down, still had gag reflux" History of colonoscopy History of cystoscopy History of esophagogastroduodenoscopy (EGD) History of fracture of skull REPAIR SKULL-NO PLATE History of umbilical hernia repair History of varicose vein ligation and stripping BILAT Family History Father , in his 70s Family history of diabetes mellitus Cardiac disorder Mother Family history of diabetes mellitus Gout Sister Family history of diabetes mellitus Other No family history of adverse response to anesthesia Social History Smoking Status: Former smoker Tobacco Type: Cigarettes Second Hand Exposure: Yes; Hx Alcohol Use: No Hx Substance Use: No Preferred Language: Nepali Communication Ability: Effective Palliative Care Physician Required: No Beliefs That Will Affect Care: None Current Living Situation: Spouse Other Information That Helps Us Care for You: No Feels Safe at Home: Yes Safety Concerns: Feels Safe At This Time Safety Concerns Comment: Concerned about having seizures/falling when home alone Childhood Exposure to Second-Hand Smoke: Yes caffeine: No Assistive Devices: Cane and Walker Review of Systems Review of Systems: All systems reviewed & are unremarkable except as noted in HPI & below Physical Exam Physical Exam: General Examination: Constitutional: Well developed person in no acute distress. HENT: Normal exam with inspection. CV: Hearth rhythm is regular. Neck: Supple, no carotid bruits. Lungs: Non-labored and comfortable breathing. Abdomen: Soft, non-tender, non-distended. Skin: No rash or ecchymosis.Significant discoloration in feet and distal lower extremity skin. Extremities: No edema or cyanosis NEUROLOGICAL EXAMINATION: Mental Status: Alert and oriented to place, person and time. Cranial Nerves: II-XII are intact. No nystagmus. Funduscopy: Normal looking optic discs. Motor: 5/5 in all extremities without asymmetry. Tone: Normal without spasticity or rigidity. Sensory: Decreased sensation in distal lower extremities, up to knees, to all sensory modalities. Coordination: No dysmetria with FTN testing. Slight dysmetria with [id number] testing, bilaterally, but worse on the right. Speech: Fluent. Comprehension is intact. Gait: Not assessed. Musculoskeletal: Normal muscle bulk, no atrophy. DTRs: 1+ in upper extremities, 1 - in knees, and absent in ankles. Plantar reflexes bilaterally downgoing. Results & Data Vital Signs (Past 12 Hours) Vital Signs Temp Pulse Pulse Resp BP Pulse Ox O2 Del Method 06/22/22 16:04 36.6 C 60 20 138/75 94 Room Air 06/22/22 11:34 37.0 C 62 19 140/83 94 Room Air 06/22/22 08:00 Room Air 06/22/22 08:02 37.0 C 65 20 105/61 92 Room Air 06/22/22 07:00 58 L Laboratory Results Laboratory Results - last 24 hr 06/21/22 06/21/22 06/22/22 15:20 17:57 06:25 WBC 4.56 L RBC 3.43 L Hgb 11.6 L Hct 33.7 L MCV 98.3 MCH 33.8 MCHC 34.4 RDW Std Deviation 47.1 H RDW Coeff of Mindy 13.2 Plt Count 103 L MPV 9.2 L Immature Gran % (Auto) 0.2 Neut % (Auto) 65.8 Lymph % (Auto) 19.7 [place] % (Auto) 12.1 Eos % (Auto) 1.8 Baso % (Auto) 0.4 Neut # (Auto) 3.00 Lymph # (Auto) 0.90 L [place] # (Auto) 0.55 Eos # (Auto) 0.08 Baso # (Auto) 0.02 Immature Gran # (Auto) 0.01 PT 11.9 INR 1.1 Sodium Potassium Chloride Carbon Dioxide Anion Gap BUN Creatinine Est Cr Clr Drug Dosing Est GFR ( Amer) Est GFR (Non-Af Amer) BUN/Creatinine Ratio Glucose Calcium Ammonia 38.0 Procalcitonin 06/22/22 06/22/22 06:25 07:57 WBC RBC Hgb Hct MCV MCH MCHC RDW Std Deviation RDW Coeff of Mindy Plt Count MPV Immature Gran % (Auto) Neut % (Auto) Lymph % (Auto) [place] % (Auto) Eos % (Auto) Baso % (Auto) Neut # (Auto) Lymph # (Auto) [place] # (Auto) Eos # (Auto) Baso # (Auto) Immature Gran # (Auto) PT INR Sodium 137 Potassium 4.6 Chloride 105 Carbon Dioxide 27 Anion Gap 5 BUN 12 Creatinine 0.79 Est Cr Clr Drug Dosing 126.8 Est GFR ( Amer) 113.9 Est GFR (Non-Af Amer) 98.3 BUN/Creatinine Ratio 15.2 Glucose 109 H Calcium 9.0 Ammonia Procalcitonin < 0.05 Diagnostic Findings Chest X-Ray 06/21/22 14:09 XR chest 1V portable CLINICAL HISTORY: trauma TECHNIQUE: Single frontal radiograph of the chest was obtained. Comparison: Comparison is made to chest radiograph 01/29/2022 FINDINGS: Exam is limited by patient rotation. Cardiomegaly is noted. Lungs are underinflated. Airspace opacities are noted in the right lung and left upper lung. No evidence of pleural effusion or pneumothorax. There is suggestion of irregularities in the right ribs most prominently in the right lateral fifth rib. IMPRESSION: Airspace opacities in the right greater than left lung which may represent contusion and/or aspiration/atelectasis. Possible rib fractures, tension on CT chest is recommended. ACT 112: Negative or not required by law. Electronically signed by: Gigi Gomez M.D. 06/21/2022 2:[address] 06/21/22 14:09 CT head/brain wo con CLINICAL HISTORY: 57 years-old Male with Trauma. Acute head trauma TECHNIQUE: Multiple axial CT images of the head were obtained without contrast. A dose lowering technique was utilized adhering to the principles of ALARA. COMPARISON: CT cervical spine of same day, head CT 01/30/2022 FINDINGS: No acute intracranial hemorrhage, midline shift, intracranial mass, hydrocephalus, territorial ischemia or abnormal extra-axial collection. Involutional changes with chronic microvascular ischemic disease. No acute calvarial fracture. Chronic defects of the frontal calvarium. Mastoid air cells are clear. Moderate mucosal thickening in the left maxillary sinus. IMPRESSION: No acute intracranial abnormality. ACT 112: Negative or not required by law. The above report was generated using voice recognition software. It may contain grammatical, syntax or spelling errors. Electronically signed by: Rogerio Harvey M.D. 06/21/2022 3:05 PM Abdomen/Pelvis CT 06/21/22 14:10 CT abd pelvis IV con only, CT lumbar spine w con CLINICAL HISTORY: Trauma TECHNIQUE: Helical axial images of the abdomen and pelvis were obtained and displayed. Automated dose lowering techniques and/or adjustment according to patient size were utilized for this exam. Dedicated images of the lumbar spine were obtained. This exam was performed with intravenous contrast. COMPARISON: Comparison is made to CT abdomen pelvis 03/23/2022 FINDINGS: Lower chest: Bibasilar atelectasis versus scarring is seen. Mild cardiomegaly is noted. Liver: Nodular contour of the liver is seen compatible with cirrhosis. Gallbladder and biliary tree: Cholelithiasis is seen without evidence of cholecystitis. No intra- or extrahepatic biliary ductal dilation. Pancreas: Unremarkable, no focal lesions. Spleen: Splenomegaly is noted, the spleen measures 15 cm in craniocaudal dimension. A splenule is incidentally noted. Adrenals: Unremarkable. Kidneys and ureters: There is redemonstration of left hydronephrosis without evidence of obstructive stone, there is pelviectasis and abrupt narrowing in the proximal ureter. Bladder: Unremarkable. Reproductive organs: Unremarkable. Bowel: The appendix is normal. Lymph nodes Retroperitoneal: Unremarkable. Pelvic: Unremarkable. Mesenteric: Unremarkable. Peritoneum: Normal. Vessels: Mild atherosclerotic disease is seen. Numerous varices are seen most prominently about the spleen and esophagus. Abdominal wall: Bilateral fat-containing inguinal hernias are seen. Bones: Degenerative changes in the visualized spine. No acute fractures are seen. There is suggestion of old healed rib fractures. IMPRESSION: 1. No acute abnormalities and in particular no evidence of acute fracture. 2. Cirrhosis with findings of portal hypertension. 3. Cholelithiasis without cholecystitis. 4. Redemonstration of left hydronephrosis without obstructive stone likely due to a UPJ obstruction. ACT 112: Negative or not required by law. Electronically signed by: Gigi Gomez M.D. 06/21/2022 3:[address] 06/21/22 14:10 CT cervical spine wo con CLINICAL HISTORY: Trauma TECHNIQUE: Multidetector row helical CT of the cervical spine was performed without administration of intravenous contrast. Coronal and sagittal reformations were obtained. Automated dose lowering techniques and/or adjustment according to patient size were utilized for this exam. Comparison: None available at the time of this dictation. FINDINGS: No acute fractures or subluxations are identified. Degenerative changes are seen in the visualized spine. The alignment is normal. Soft tissues are unremarkable. IMPRESSION: Degenerative changes without evidence of acute bony injury. ACT 112: Negative or not required by law. Electronically signed by: Gigi Gomez M.D. 06/21/2022 3:[address] 06/21/22 14:[address] WITH CONTRAST; CT THORACIC SPINE WITH IV CONTRAST HISTORY: Acute chest and back trauma status post fall Trauma TECHNIQUE: Multiaxial CT images of the chest and thoracic spine were performed following the IV administration of 89 cc of Optiray. A dose lowering technique was utilized adhering to the principles of ALARA. COMPARISON: CT abdomen and pelvis and lumbar spine studies of same day, CT abdomen and pelvis 03/23/2022, chest CT 07/25/2017 FINDINGS: CT CHEST: Unremarkable thyroid. Partially calcified mediastinal and hilar lymph nodes. Gynecomastia. Moderate cardiomegaly without pericardial effusion. Extensive coronary artery calcifications. No thoracic aortic aneurysm. The opacified pulmonary artery is unremarkable. Mild groundglass and tree-in-bud nodules within the upper lobes right lung base. Mild bronchial wall thickening. There are a few scattered calcified pulmonary granulomata. The central airways appear patent. Unremarkable soft tissues. Cirrhotic liver with splenomegaly and upper abdominal varicosities. Cholelithiasis. Partially imaged left-sided hydronephrosis. Partially imaged chronic right clavicular fracture deformity. Healed chronic bilateral rib fractures. No definite acute fracture identified. CT THORACIC SPINE: Mild superior endplate compression of the T2, T4 vertebral bodies is unchanged. Mild mid thoracic dextroscoliosis. Multilevel bridging osteophytosis with mild to moderate intervertebral disc space narrowing and moderate facet arthrosis. No paravertebral edema. IMPRESSION: 1. No acute posttraumatic intrathoracic abnormality identified. 2. No acute fracture or pneumothorax. 3. Chronic bilateral rib fractures. 4. Mild groundglass and tree-in-bud nodules within the upper lobes and right lung base suggestive of a subtle infectious or inflammatory pneumonitis. 5. Please refer to the CT abdomen and pelvis study of same day for additional findings. ACT 112: Negative or not required by law. Electronically signed by: Rogerio Harvey M.D. 06/21/2022 3:[address] 06/21/22 14:10 CT abd pelvis IV con only, CT lumbar spine w con CLINICAL HISTORY: Trauma TECHNIQUE: Helical axial images of the abdomen and pelvis were obtained and displayed. Automated dose lowering techniques and/or adjustment according to patient size were utilized for this exam. Dedicated images of the lumbar spine were obtained. This exam was performed with intravenous contrast. COMPARISON: Comparison is made to CT abdomen pelvis 03/23/2022 FINDINGS: Lower chest: Bibasilar atelectasis versus scarring is seen. Mild cardiomegaly is noted. Liver: Nodular contour of the liver is seen compatible with cirrhosis. Gallbladder and biliary tree: Cholelithiasis is seen without evidence of cholecystitis. No intra- or extrahepatic biliary ductal dilation. Pancreas: Unremarkable, no focal lesions. Spleen: Splenomegaly is noted, the spleen measures 15 cm in craniocaudal dimension. A splenule is incidentally noted. Adrenals: Unremarkable. Kidneys and ureters: There is redemonstration of left hydronephrosis without evidence of obstructive stone, there is pelviectasis and abrupt narrowing in the proximal ureter. Bladder: Unremarkable. Reproductive organs: Unremarkable. Bowel: The appendix is normal. Lymph nodes Retroperitoneal: Unremarkable. Pelvic: Unremarkable. Mesenteric: Unremarkable. Peritoneum: Normal. Vessels: Mild atherosclerotic disease is seen. Numerous varices are seen most prominently about the spleen and esophagus. Abdominal wall: Bilateral fat-containing inguinal hernias are seen. Bones: Degenerative changes in the visualized spine. No acute fractures are seen. There is suggestion of old healed rib fractures. IMPRESSION: 1. No acute abnormalities and in particular no evidence of acute fracture. 2. Cirrhosis with findings of portal hypertension. 3. Cholelithiasis without cholecystitis. 4. Redemonstration of left hydronephrosis without obstructive stone likely due to a UPJ obstruction. ACT 112: Negative or not required by law. Electronically signed by: Gigi Gomez M.D. 06/21/2022 3:[address] 06/21/22 14:[address] WITH CONTRAST; CT THORACIC SPINE WITH IV CONTRAST HISTORY: Acute chest and back trauma status post fall Trauma TECHNIQUE: Multiaxial CT images of the chest and thoracic spine were performed following the IV administration of 89 cc of Optiray. A dose lowering technique was utilized adhering to the principles of ALARA. COMPARISON: CT abdomen and pelvis and lumbar spine studies of same day, CT abdomen and pelvis 03/23/2022, chest CT 07/25/2017 FINDINGS: CT CHEST: Unremarkable thyroid. Partially calcified mediastinal and hilar lymph nodes. Gynecomastia. Moderate cardiomegaly without pericardial effusion. Extensive coronary artery calcifications. No thoracic aortic aneurysm. The opacified pulmonary artery is unremarkable. Mild groundglass and tree-in-bud nodules within the upper lobes right lung base. Mild bronchial wall thickening. There are a few scattered calcified pulmonary granulomata. The central airways appear patent. Unremarkable soft tissues. Cirrhotic liver with splenomegaly and upper abdominal varicosities. Cholelithiasis. Partially imaged left-sided hydronephrosis. Partially imaged chronic right clavicular fracture deformity. Healed chronic bilateral rib fractures. No definite acute fracture identified. CT THORACIC SPINE: Mild superior endplate compression of the T2, T4 vertebral bodies is unchanged. Mild mid thoracic dextroscoliosis. Multilevel bridging osteophytosis with mild to moderate intervertebral disc space narrowing and moderate facet arthrosis. No paravertebral edema. IMPRESSION: 1. No acute posttraumatic intrathoracic abnormality identified. 2. No acute fracture or pneumothorax. 3. Chronic bilateral rib fractures. 4. Mild groundglass and tree-in-bud nodules within the upper lobes and right lung base suggestive of a subtle infectious or inflammatory pneumonitis. 5. Please refer to the CT abdomen and pelvis study of same day for additional findings. ACT 112: Negative or not required by law. Electronically signed by: Rogerio Harvey M.D. 06/21/2022 3:35 PM Elbow X-Ray 06/21/22 14:11 XR elbow LT min 3V routine HISTORY: 57 years-old Male l elbow pain . Left elbow pain status post trauma COMPARISON: None TECHNIQUE: 3 views of the left elbow FINDINGS: Mild to moderate osteoarthritis with associated enthesophytes. Mild dorsal soft tissue swelling. No acute fracture, dislocation or large joint effusion. IMPRESSION: No acute fracture or dislocation. ACT 112: Negative or not required by law. The above report was generated using voice recognition software. It may contain grammatical, syntax or spelling errors. Electronically signed by: Rogerio Harvey M.D. 06/21/2022 2:36 PM
[2022-06-22] MEDS ORDERED: cefTRIAXone SODIUM 2,000 MG in DEXTROSE 5% 50 ML IV SCH (17:00)
[2022-06-22] MEDS: QUEtiapine FUMARATE 25 MG TABLET PO SCH (20:10)
[2022-06-22] MEDS: TAMSULOSIN HCL 0.4 MG CAP PO SCH (20:11)
--- NOTE | 2022-06-22 21:26 | Hospitalist Progress Note ---
Date of Service June 22, 2022 Assessment & Plan (1) Ataxic gait: Plan: Recurrent falls - Uncertain of what is acute from subacute from chronic. 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 Although he told admitting team he has been sober for the past year, he did have an etoh level of 11 on admission. Fortunately he does not appear to have suffered any MSK injuries from his fall. He uses a cane/walker at baseline. Despite his subjective reports of being weak, on my exam, his muscles had normal strength, making an imbalance etiology more likely - There was some concern about a possible acute cause for weakness, that of pneumonia. His Chest CT showed groundglass and tree-in-bud nodules in upper lobes and right lung base consistent with pneumonitis versus pneumonia. However he has been afebrile with a normal WBC and procal. Admitting team had started him on Rocephin for possible PNA -- I stopped it and started doxycycline in the event he had either an aspiration pneumonitis (from etoh drinking) or simply has an inflammatory pneumonitis and would benefit from the properties of doxy - His report of flashing lights before his fall concerning for seizures (he has a known underlying seizure disorder) --> neurology was consulted and ordered lamotrigine and levetiracetam serum levels, however clinical impression is that seizure not implicated. Dispo pending PT/OT eval History of cirrhosis, alcohol use Patient reports that he has had no alcohol use in the preceding year, alcohol level is 11.0 on admission pro S protocol Continue nadolol, folic acid, lactulose, spironolactone, rifaximin Ammonia level ordered on admission --> normal Suspected pneumonia CT with tree-in-bud/groundglass opacities in upper lobes and right lung base? Pneumonitis versus pneumonia No leukocytosis Procalcitonin neg Rocephin stopped and doxy started as above History of seizures Keppra and lamotrigine levels pending Continue Keppra 1500 mg twice daily Continue Lamictal 300mg BID - Ativan apron trimmer for breakthrough seizures Patient has had recurrent seizure events and is followed with neurology as an outpatient. Mood Continue Seroquel 25 mg p.o. nightly DVT prophylaxis: SCDs, pharmacal prophylaxis deferred due to bleeding risk Diet: Low-sodium, heart healthy Disposition: PCU. PT/OT evals pending CODE STATUS: DNR/DNI Admission and Anticipated Discharge Date Admission Date: June 21, 2022 Subjective Patient states he feels weak. He says he has had a cough for the last month and a half. Review of Systems Respiratory: + cough Physical Exam Physical Exam: General Appearance: well-developed, well-nourished adult male in no acute distress HEENT: NC/AT. Sclera anicteric. Neck: Supple. No JVD. Carotid upstrokes brisk but not bounding; no bruits or palpable thrills bilaterally. No thyromegaly or thyroid nodules. CV: RRR. S1 and S2 appreciated. No murmurs, clicks, gallops or rubs. Lungs: CTA in all lung callejas bilaterally with equal air movement. No wheezes, rales, rhonchi or crackles. MSK: Hip flexion, abduction and adduction 5/5 strength b/l. Ankle dorsi and plantar flexion 5/5 b/l. Shoulder shrug 5/5 strength. Elbow flexion and extension 5/5 b/l. Skin: warm, dry, and intact Neuro: AAO x 3. No focal deficits. Psych: Appropriate mood and affect. Results & Data Results & Data Vital Signs (Past 12 Hours) Vital Signs Temp Pulse Pulse Resp BP Pulse Ox O2 Del Method 06/22/22 16:04 36.6 C 60 20 138/75 94 Room Air 06/22/22 11:34 37.0 C 62 19 140/83 94 Room Air 06/22/22 08:00 Room Air 06/22/22 08:02 37.0 C 65 20 105/61 92 Room Air 06/22/22 07:00 58 L PG Care Time/CCT Total # of Minutes Spent Total Time Spent with Patient: Total time spent is greater than 50% in coordination of care (as documented) at patient's floor/unit and/or counseling patient: Coding Level of Care Code 57423 SUB INP/OBS CARE 2/35MIN Diagnoses Ataxic gait R26.0
[2022-06-23] MEDS: MELATONIN 3 MG TAB PO SCH ×2 (00:11→00:12)
[2022-06-23] MEDS: DOXYCYCLINE HYCLATE 100 MG CAP PO SCH (06:13)
[2022-06-23] MEDS: nadoloL 40 MG TAB PO SCH (09:06)
[2022-06-23] MEDS: MAGNESIUM OXIDE 400 MG TAB PO SCH (09:06)
[2022-06-23] MEDS: MULTIVITAMIN TAB PO SCH (09:06)
[2022-06-23] MEDS: lamoTRIgine 100 MG TAB PO SCH (09:06)
[2022-06-23] MEDS: SPIRONOLACTONE 25 MG TAB PO SCH (09:06)
[2022-06-23] MEDS: rifAXIMin 550 MG TABLET PO SCH (09:06)
[2022-06-23] MEDS: THIAMINE HCL 100 MG in SYRINGE 9 ML IV SCH (09:07)
[2022-06-23] MEDS: levETIRAcetam 500 MG TAB PO SCH (09:07)
[2022-06-23] MEDS: FOLIC ACID 1 MG in SYRINGE 9.8 ML IV SCH (09:07)
[2022-06-23] MEDS: guaiFENesin 600 MG TABCR PO SCH (09:08)
[2022-06-23] MEDS: LACTULOSE SYRUP 20 GM/30 ML UDC PO SCH (09:08)
--- NOTE | 2022-06-23 10:06 | Hospitalist Progress Note ---
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 uses a cane/walker at baseline. -metabolic encephalopathy maybe acute cause for weakness, that of acute pneumonia. moderate risk His Chest CT showed groundglass and tree-in-bud nodules in upper lobes and right lung base consistent with pneumonitis versus pneumonia. 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 nightly DVT prophylaxis: SCDs, CODE STATUS: DNR/DNI Admission and Anticipated Discharge Date Admission Date: June 21, 2022 Results & Data Results & Data Vital Signs (Past 12 Hours) Vital Signs Temp Pulse Pulse Resp BP Pulse Ox O2 Del Method 06/23/22 07:50 Room Air 06/23/22 07:45 98.2 F 61 18 127/78 94 Room Air 06/23/22 07:00 78 06/22/22 23:00 Room Air 06/22/22 23:05 98.6 F 69 17 129/77 97 Room Air 06/22/22 22:30 97.9 F 67 18 133/67 92 Room Air PG Care Time/CCT Total # of Minutes Spent Total Time Spent with Patient: Total time spent is greater than 50% in coordination of care (as documented) at patient's floor/unit and/or counseling patient: Coding Diagnoses Ataxic gait R26.0
[2022-06-23] MEDS: allopurinoL 300 MG TAB PO SCH (10:14)
--- NOTE | 2022-06-23 16:52 | Discharge Summary ---
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 He reports that while walking he is seeing bright flashing lights and then falls to his hand and has tingling in his hands. Seen at bedside with . Having worsened balance, sometimes uses a cane vs walker. Generally worse in week. went to work this morning and he was in his normal health, but then called his ~1130 after a fall with increased back pain. No AMS or confusion in the last few days. HE reports he has had episodes of bright colors and has been follwoing with Dr. Cade. Thinks he has done worse seen keppra was increased. Currently is taking 1750mg AM/PM per pt which he did not take this morning. No syncope recently per patient, but weak and gets dizzy and 'have to sit down quick.' No chest or chest pressure. No bleeding recently. Dnies vomiting, aspiration, or choking. Has had 'a bad cough for at least a month or two'. Had not been seen for the cough, taking nyquil and dayquil which does not help much. Has been taking nyquil, one bottle lasts a few days per pt. Pt unclear on how much he takes per dose. R distal forarm with skin tear. Medical History: Reviewed Medications: Reviewed Surgical History: Reviewed Family history: Reviewed Allergies: Reviewed Social History: No tobacco use. Denies alcohol use. Code Status: Full Code Principal Diagnosis Metabolic encephalopathy from pneumonitis causing worsening of chronic ataxic gait from cerebellar degeneration and alcoholic polyneuropathy Discharge Exam Patient is a limitations of movement however was evaluated by PT and OT with myself in the room I feel he is appropriate to go home with home health. The patient refuses home health wants to go home anyway. He was offered prescription for outpatient physical therapy which she refused Discharge Data Allergies Allergy/AdvReac Type Severity Reaction Status Date / Time No Known Allergies Allergy Verified 06/21/22 17:53 Consultations 06/21/22 16:13 ED Decision to Admit Stat 06/21/22 19:06 Consult Neurology Routine Ordered Studies 06/21/22 14:09 CT head/brain wo con Stat 06/21/22 14:10 CT abd pelvis IV con only Stat CT cervical spine wo con Stat CT chest diagnostic w con Stat CT lumbar spine w con Stat CT thoracic spine w con Stat Hospital Course (1) Ataxic gait: acute on chronic moderate risk Patient has a 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 uses a cane/walker at baseline. -metabolic encephalopathy maybe acute cause for weakness, that of acute pneumonia. moderate risk His Chest CT showed groundglass and tree-in-bud nodules in upper lobes and right lung base consistent with pneumonitis versus pneumonia. 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 nightly CODE STATUS: DNR/DNI Total Time Total Time Spent Total Time Spent (In Minutes): It required greater than 30 minutes to prepare this patient for discharge Discharge Plan Discharge Items Patient Disposition: Home - Self-Care Reason For Visit: WEAKNESS, FALLS, ?VISUALS HALLUCINATIONS Discharge Diagnosis: weakness from pneumonitis difficulty walking Activity: Resume your previous activity Non-emergency contact: Primary Care Provider Call non-emergency contact if: your symptoms worsen Follow-up/Referrals: Giana Wan MD [Primary Care Provider] - Diet: Regular Addtl Attending Provider Instructions: Please complete your antibiotics you can start your first dose in the a.m. on 06/24/2022 Please continue to take a multiple vitamin with thiamine and folic acid Please follow-up with your family doctor this week Please use assistive device to walk about as recommended by physical occupational therapy Pending Studies at Discharge: No Stand-Alone Forms: [facility], Smoking Cessation Medications and DC Order Prescriptions: New doxycycline hyclate 100 mg Capsule 100 mg PO BID@0700,1900 Qty: 12 0RF Continued thiamine HCl (vitamin B1) [Vitamin B-1] 100 mg tablet 100 mg PO DAILY Qty: 90 3RF quetiapine [Seroquel] 25 mg tablet 25 mg PO HS Qty: 90 3RF magnesium hydroxide [Milk of Magnesia] 400 mg/5 mL suspension 30 ml PO DAILY PRN (Reason: Constipation) Qty: 355 0RF tamsulosin 0.4 mg capsule 0.4 mg PO HS Qty: 90 1RF melatonin 3 mg tablet 3 mg PO HS Qty: 90 3RF magnesium oxide 400 mg (241.3 mg magnesium) tablet 400 mg PO BID Qty: 60 5RF folic acid 1 mg tablet 1 mg PO DAILY Qty: 90 3RF allopurinol 300 mg tablet 300 mg PO DAILY Qty: 90 3RF nadolol 40 mg tablet 100 mg PO DAILY Qty: 225 3RF lamotrigine 150 mg tablet 300 mg PO BID 30 Days Qty: 120 5RF Xifaxan 550 mg tablet 550 mg PO BID Qty: 60 0RF Nurtec ODT 75 mg tablet,disintegrating 75 mg PO Q OTHER DAY PRN (Reason: migraine) Qty: 16 5RF lactulose 20 gram/30 mL Solution 30 ml PO DAILY Qty: 900 0RF multivitamin with folic acid [Daily-Ellie (with folic acid)] 400 mcg Tablet 1 tab PO QAM Qty: 30 0RF acetaminophen [Tylenol] 325 mg Tablet 650 mg PO Q4H PRN (Reason: Pain (Scale Score 1-3)) polyethylene glycol 3350 [Miralax] 17 gram/dose Powder 17 g PO QDL PRN (Reason: Constipation) spironolactone 25 mg Tablet 50 mg PO QAM Qty: 30 0RF levetiracetam 500 mg tablet 1,500 mg PO BID Discharge Orders: Discharge Order (Routine); Ordered 06/23/22 Ordered By: Kevin Rodas Admission Data Admit Date/Time: 06/21/22 16:56 Attending Provider: Kevin Rodas Admit Provider: Tito Weir Primary Care Provider: Giana Wan Other Providers: Tito Weir ; Alexandr Bowman Coding Level of Care Code 16340 INP/OBS DISCH >30 MIN Diagnoses Ataxic gait R26.0
== END 2022-06-23 17:57 | disposition home or self-care (01) | DRG 193 ==
LOC: ED 13:58 → SUATTDRO 16:56 → 2E 16:56 → 3N 06-22 22:56

== ENCOUNTER 2023-02-11 23:16 | Inpatient (IN) ==
[2023-02-11] MEDS ORDERED: LORazepam 1 MG in SYRINGE 0.5 ML IV STA (23:30)
[2023-02-11] MEDS ORDERED: levETIRAcetam 1,000 MG in 0.9 % SODIUM CHLORIDE 100 ML IV STA (23:32)
[2023-02-11] MEDS ORDERED: LORazepam 2 MG/1 ML VIAL ONE (23:32)
[2023-02-11] MEDS ORDERED: NALOXONE HCL 0.4 MG/1 ML VIAL/CARP ONE (23:34)
[2023-02-11] MEDS ORDERED: SODIUM CHLORIDE 0.9% 1,000 ML IV SCH (23:45)
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
[2023-02-12 00:34] LABS: Basophils # (auto) 0.03 K/uL (0.00-0.20); Basophils % (auto) 0.6 %; Eosinophils # (auto) 0.12 K/uL (0.00-0.50); Eosinophils % (auto) 2.4 %; Hematocrit (blood only) 35.6 % (42.0-52.0); Hemoglobin 12.6 g/dl (14.0-18.0); Immature Granulocytes # (auto) 0.01 K/uL (0.01-0.20); Immature Granulocytes % (auto) 0.2 %; Lymphocytes # (auto) 0.81 K/uL (1.20-3.40); Lymphocytes % (auto) 16.2 %; Mean Corpuscular Hemoglobin 35.2 pg (25.0-34.0); Mean Corpuscular Hgb Conc 35.4 g/dL (32.0-36.0); Mean Corpuscular Volume 99.4 fL (80.0-100.0); Mean Platelet Volume 9.3 fL (9.4-12.4); Monocytes # (auto) 0.38 K/uL (0.11-0.59); Monocytes % (auto) 7.6 %; Neutrophils # (auto) 3.64 K/uL (1.40-6.50); Platelet Count 107 K/uL (130-400); RDW Coefficient of Variation 12.6 % (11.5-14.5); RDW Standard Deviation 45.4 fL (36.4-46.3); Red Blood Count 3.58 M/uL (4.70-6.10); White Blood Count 4.99 K/ul (4.8-10.8)
[2023-02-12 01:01] LABS: Albumin Level 3.6 gm/dl (3.4-5.0); Bilirubin,Total 1.1 mg/dl (0.2-1.0); Calcium 9.3 mg/dl (8.6-10.3); Creatinine Clr Calc Pharmacy 130.3 ml/min; Est GFR (African American) 113.1 ml/min; Est GFR (Non-African American) 97.6 ml/min; Globulin 3.7 gm/dl (2.5-4.0); Magnesium 2.3 mg/dl (1.7-2.4); Total Protein 7.3 gm/dl (6.0-8.3)
--- NOTE | 2023-02-12 01:05 | CT Scan Report ---
Exam(s): CT HEAD Without Contrast EXAM: CT Head Without Intravenous Contrast CLINICAL HISTORY: Reason for exam: AMS. TECHNIQUE: Axial computed tomography images of the head/brain without intravenous contrast. Automated exposure control was utilized for the study. A dose lowering technique was utilized adhering to the principles of ALARA. COMPARISON: No relevant prior studies available. FINDINGS: Brain: Mild cerebral atrophy. The brain is otherwise unremarkable. No acute large vessel infarct or intracranial hemorrhage is seen. Ventricles: Unremarkable. No ventriculomegaly. Bones/joints: See below. Soft tissues: Small left frontal scalp hematoma. No skull fracture is seen. There is an old healed right frontal skull fracture or craniotomy. Sinuses: There is a gas fluid level within a mostly opacified left maxillary sinus consistent with acute sinusitis. The remaining paranasal sinuses are within normal limits. Mastoid air cells: Unremarkable as visualized. No mastoid effusion. IMPRESSION: 1. There is a gas fluid level within a mostly opacified left maxillary sinus consistent with acute sinusitis. The remaining paranasal sinuses are within normal limits. 2. Mild cerebral atrophy. The brain is otherwise unremarkable. No acute large vessel infarct or intracranial hemorrhage is seen. Electronically signed by: Carlos Kennedy MD 02/12/23 01:05 AM
--- NOTE | 2023-02-12 01:15 | CT Scan Report ---
Exam(s): CT C SPINE EXAM: CT Cervical Spine Without Intravenous Contrast CLINICAL HISTORY: Reason for exam: fall. TECHNIQUE: Axial computed tomography images of the cervical spine without intravenous contrast. Automated exposure control was utilized for the study. A dose lowering technique was utilized adhering to the principles of ALARA. COMPARISON: No relevant prior studies available. FINDINGS: Vertebrae: Mild narrowing and osteophytosis of the atlantodental joint. The odontoid process is intact. No acute fracture. Soft tissues: Unremarkable. Vasculature: Mild calcification of the carotid bifurcation bilaterally. DISCS/SPINAL CANAL/NEURAL FORAMINA: C2-C3: Mild degenerative disc disease. No stenosis. C3-C4: Mild degenerative disc disease. No stenosis. C4-C5: Mild degenerative disc disease. No stenosis. C5-C6: Mild degenerative disc disease. No stenosis. C6-C7: Mild degenerative disc disease. No stenosis. C7-T1: Mild degenerative disc disease. No stenosis. IMPRESSION: Mild multilevel degenerative disc disease and facet arthrosis throughout the cervical spine. No acute fracture or traumatic subluxation is seen. No significant spinal stenosis is identified. Electronically signed by: Carlos Kennedy MD 02/12/23 01:13 AM
--- NOTE | 2023-02-12 02:09 | History & Physical Report ---
Date of Service February 12, 2023 Assessment & Plan (1) Fall: Plan: -Fall at home, unclear at the current time if there was any witnessed seizure activity from the as she is not in the room with him at the time of interview. -WBC count WNL, hgb and platelets around baseline for patient. -CMP unremarkable, lactate normal, alcohol level negative. -CT head w/o acute intracranial abnormality, acute sinusitis L maxillary sinus, mild cerebral atrophy. -CT neck without any acute fractures. -Gomez catheter in ER drained ~900cc, urinary retention, possible UTI vs BPH. -Patient has a history of frequent falls, difficult to say if this is the same course vs seizure. -He is on Keppra 1750mg BID and lamotrigine 300mg BID. Unclear if patient is compliant. Will send for Keppra and lamotrigine level. -Possible post-ictal state with drowsiness. -Ordered EEG, consulted neurology, follows with [facility] neurolog[facility] outpatient, will appreciate recommendations. -Continue to monitor on telemetry -Can give Ativan for breakthrough seizures. (2) Urinary retention: Plan: -Urinary retention in ER with ~900cc of drainage. -Urinalysis with culture pending. -If urinalysis shows signs of infection could start on Ceftriaxone for coverage. (3) Seizure disorder: Plan: -As above, follows with [facility] outpatient. -On Keppra 1750mg BID and lamotrigine 300mg BID. -Ordered EEG. (4) Hypertension: Plan: -Continue home nadolol (5) Chronic venous insufficiency: Plan: -Chronic issue. Noted. (6) Multiple skin tears: Plan: -Multiple falls, abrasions from multiple falls present, wound care ordered. (7) Frequent falls: Plan: -History of frequent falls. Fall precautions in place, PT/OT consulted for eval and treat. (8) Alcoholic cirrhosis: Plan: -Alcohol negative on admission. -continue home lactulose, spironolactone, rifaximin. (9) BPH w urinary obs/LUTS: Plan: -Likely contributing to urinary retention, continue home tamsulosin. Plan F/E/N/GI: NPO while drowsy, if more awake can progress diet DVT Prophylaxis: Lovenox 40mg daily. Code status: Patient was DNR on previous admission, however not able to get response from patient at the current time regarding code status, will make full code - will need clarification during the day time with patient or . Dispo: Telemetry. History of Present Illness Chief Complaint: Fall with history of seizures Primary Care Provider: Giana Wan MD Uvaldo is a 58 year old male w/ PmHx HTN, alcoholic cirrhosis and cerebellar degeneration, migraine, chronic venous insufficiency, multiple falls with abrasions, history of seizure due to alcohol withdrawal, peripheral neuropathy coming into the hospital for being found after a fall by his at his home. Patient was not able to converse with me, barely arousable with sternal rub and only able to respond very vaguely; was not in the room at the time of visit either. Upon speaking with the ER provider, patient was found by his earlier in the night while she was in the house with him. She had heard him fall down and found him fallen in the living room nonresponsive. He was then transported to the ER via EMS for further evaluation. Patient woke up when gomez placed a little bit later, knew he was at a hospital and that it was 2022 however not able to get much else out of the patient as he was fixated on his gomez catheter. In the ER CBC was at baseline for hemoglobin and platelets, WBC 4.99, CMP unremarkable, alcohol level negative. CT head was negative for acute intrac ranial issue, gas fluid level within mostly opacified L maxillary sinus consistent with acute sinusitis, mild cerebral atrophy. CT cervical spine mild multilevel degenerative disc disease and facet arthrosis throughout cervical spine without acute fracture or traumatic subluxation. Allergies Allergy/AdvReac Type Severity Reaction Status Date / Time No Known Allergies Allergy Verified 02/12/23 00:12 Home Medications Medication Instructions Recorded Confirmed Type multivitamin with folic acid 400 1 tab PO QAM #30 tabs 08/30/21 02/12/23 Rx mcg tablet (Daily-Ellie (with folic acid)) polyethylene glycol 3350 17 17 g PO QDL PRN Constipation 09/06/21 02/12/23 History gram/dose oral powder (Miralax) magnesium hydroxide 400 mg/5 mL 30 ml PO DAILY PRN Constipation 12/06/21 02/12/23 Rx oral suspension (Milk of Magnesia) #355 mL folic acid 1 mg tablet 1 mg PO DAILY #90 tabs 02/01/22 02/12/23 Rx magnesium oxide 400 mg (241.3 mg 400 mg PO BID #180 tabs 08/15/22 02/12/23 Rx magnesium) tablet rifaximin 550 mg tablet (Xifaxan) 550 mg PO BID 08/26/22 02/12/23 History allopurinol 300 mg tablet 300 mg PO QAM 11/01/22 02/12/23 History lactulose 20 gram/30 mL oral 30 ml PO QAM 11/01/22 02/12/23 History solution nadolol 40 mg tablet 100 mg PO QAM 11/01/22 02/12/23 History levetiracetam 500 mg tablet 1,500 mg (3 x 500 mg) PO BID 30 11/26/22 02/12/23 Rx days #180 tabs thiamine HCl (vitamin B1) 100 mg 100 mg PO DAILY #90 tabs 11/29/22 02/12/23 Rx tablet (Vitamin B-1) spironolactone 50 mg tablet 50 mg PO DAILY #90 tabs 12/10/22 02/12/23 Rx lamotrigine 150 mg tablet 300 mg (2 x 150 mg) PO BID 30 days 12/19/22 02/12/23 Rx #120 tabs levetiracetam 250 mg tablet 250 mg PO BID #60 tabs 12/19/22 02/12/23 Rx rimegepant 75 mg disintegrating 75 mg PO Q OTHER DAY migraine #16 12/19/22 02/12/23 Rx tablet (Nurtec ODT) tabs melatonin 3 mg tablet 3 mg PO HS #90 tabs 01/06/23 02/12/23 Rx tamsulosin 0.4 mg capsule 0.4 mg PO HS #90 caps 01/06/23 02/12/23 Rx celecoxib 100 mg capsule (Celebrex) 100 mg PO BID #60 caps 01/08/23 02/12/23 Rx cephalexin 500 mg capsule 500 mg PO Q6H 7 days #28 caps 02/09/23 02/12/23 Rx Past Med/Surg History Medical History Infection present to right knee, on treatment, following with PCP, some drainage present, keeps covered Poor historian History of seizure due to alcohol withdrawal quit drinking in 2020 BPH w urinary obs/LUTS Esophageal varices History of kidney stones Alcoholic cirrhosis Right knee DJD Left knee DJD Coronary artery disease no cardio Alcoholic cerebellar degeneration Peripheral neuropathy Portal hypertension Seizure disorder (01/04/13) DX > 1982 > last seizure 2019 > grand mal > follows with Dr. Cade Tremor Hypertension Chronic venous insufficiency Gout Surgical History History of colonoscopy History of anesthesia reaction "was out strong enough for scope to go down, still had gag reflex" History of varicose vein ligation and stripping BILAT History of fracture of skull REPAIR SKULL-NO PLATE History of cystoscopy History of umbilical hernia repair History of esophagogastroduodenoscopy (EGD) Family History Father , in his 70s Family history of diabetes mellitus Cardiac disorder Mother Family history of diabetes mellitus Gout Sister Family history of diabetes mellitus Other No family history of adverse response to anesthesia Social History Smoking Status: Never smoker Tobacco Type: Cigarettes Second Hand Exposure: No; Do You Dip or Chew Tobacco: No (quit 6 yrs ago); Hx Alcohol Use: Yes Alcohol type: beer Hx Substance Use: No Preferred Language: Wallisian Communication Ability: Effective Covering 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 Physical Exam Constitutional: WD/WN, vitals as above Patient in bed shivering, awakens somewhat to sternal rub. Respiratory: normal respiratory effort, lungs clear to auscultation Cardiovascular: Rate/Rhythm: regular rate and regular rhythm Heart Sounds: normal S1 and normal S2 Chronic venous stasis changes to bilateral lower extremities Gastrointestinal (Abdomen): BS+, soft, no reaction from pressing on abdomen, non distended. Skin: Multiple abrasions located at the lower and upper extremities likely from p revious falls. Psychiatric: Unable to get meaningful conversation from patient. Genitourinary: Gomez catheter draining ~900cc fluid. Results & Data Results & Data Vital Signs (Past 12 Hours) Vital Signs Pulse Resp BP Pulse Ox O2 Del Method O2 Flow Rate 02/12/23 01:20 69 20 95 02/12/23 01:10 62 18 95 02/12/23 01:00 67 15 95 02/12/23 01:00 124/93 02/12/23 00:50 63 18 96 02/12/23 00:40 67 18 94 02/12/23 00:30 64 19 96 02/12/23 00:30 160/97 H 02/12/23 00:20 62 19 95 02/12/23 00:10 61 17 94 02/12/23 00:00 151/83 H 02/12/23 00:00 63 19 95 02/11/23 23:59 64 15 95 02/11/23 23:40 63 18 98 02/11/23 23:30 150/90 H 02/11/23 23:30 63 17 98 02/11/23 23:29 65 02/11/23 23:26 66 18 95 02/11/23 23:23 93 Room Air 0 02/11/23 23:23 70 13 157/90 H 93 Room Air Supervising Physician Co-Signing Physician Notes Attending addendum: I have physically seen this patient, have supervised the medical residents activ ities, and agree with the H&P unless as otherwise noted. Assessment and Plan: Status post fall- heard him fall when she was in the other room, and is unsure if he had any seizure activity CT head only shows acute left maxillary sinusitis CT neck negative Patient with history of frequent falls, and has several bruises and abrasions Patient is drowsy, and could be consistent with a postictal state Admit to monitored bed to follow-up for possible arrhythmia as cause of falls Seizure disorder- Received Keppra 1 g IV from the ED and lorazepam 1 g IV, and Zyprexa 5 mg IM for mild agitation Continue usual dosing of Keppra 1750 mg p.o. twice daily and lamotrigine 300 mg p.o. twice daily Order EEG and brain MRI seizure protocol Lorazepam 1 mg IV as needed breakthrough seizure activity Consult neurology Urinary retention- With placement of Gomez catheter, had over 900 cc of immediate drainage Follow urine culture sensitivity Tamsulosin 0.4 mg at bedtime Alcohol use history- Thiamine and folic acid Remaining orders and notations as noted Resident Activity Tracking Resident Involvement: Resident Care Provided Care Provided: Adult Hospital Medicine
[2023-02-12] MEDS ORDERED: LORazepam 1 MG/1 ML SYR ED Inj Use IV STA (02:40)
[2023-02-12] MEDS ORDERED: OLANZapine 10 MG/2.1 ML SDV IM STA ×2 (02:44→21:50)
[2023-02-12] MEDS ORDERED: ACETAMINOPHEN 1,000 MG/100 ML VIAL IV PRN (03:43)
[2023-02-12] MEDS ORDERED: ONDANSETRON INJ 2 MG/ML 2 ML VIAL IV PRN (03:43)
[2023-02-12] MEDS ORDERED: MELATONIN 3 MG TAB PO PRN (03:43)
[2023-02-12 04:51] LABS: Basophils # (auto) 0.02 K/uL (0.00-0.20); Basophils % (auto) 0.5 %; Eosinophils # (auto) 0.09 K/uL (0.00-0.50); Eosinophils % (auto) 2.3 %; Hematocrit (blood only) 34.3 % (42.0-52.0); Hemoglobin 12.2 g/dl (14.0-18.0); Immature Granulocytes # (auto) 0.01 K/uL (0.01-0.20); Immature Granulocytes % (auto) 0.3 %; Lymphocytes # (auto) 0.87 K/uL (1.20-3.40); Lymphocytes % (auto) 22.3 %; Mean Corpuscular Hemoglobin 34.8 pg (25.0-34.0); Mean Corpuscular Hgb Conc 35.6 g/dL (32.0-36.0); Mean Corpuscular Volume 97.7 fL (80.0-100.0); Mean Platelet Volume 9.6 fL (9.4-12.4); Monocytes # (auto) 0.39 K/uL (0.11-0.59); Neutrophils # (auto) 2.53 K/uL (1.40-6.50); Neutrophils % (auto) 64.6 %; Platelet Count 99 K/uL (130-400); RDW Coefficient of Variation 12.5 % (11.5-14.5); RDW Standard Deviation 44.7 fL (36.4-46.3); Red Blood Count 3.51 M/uL (4.70-6.10); White Blood Count 3.91 K/ul (4.8-10.8)
[2023-02-12 05:06] LABS: Albumin Level 3.4 gm/dl (3.4-5.0); BUN Creatinine Ratio 20.9 (10-20); Calcium 8.9 mg/dl (8.6-10.3); Creatinine Clr Calc Pharmacy 153.6 ml/min; Est GFR (Non-African American) 104.4 ml/min; Phosphorus 2.6 mg/dl (2.5-4.9); Potassium 3.6 mmol/L (3.5-5.1)
[2023-02-12 05:48] LABS: Appearance Urine Clear (Clear); Bilirubin Urine Negative (Negative); Blood Urine Negative (Negative); Color Urine Yellow; Glucose Urine UA Negative (Negative); Ketones Urine Negative (Negative); Leukocyte Esterase Urine Negative (Negative); Nitrite Urine Negative (Negative); Protein Urine Negative (Negative); Specific Gravity Urine 1.009 (1.000-1.030); Urobilinogen Urine Negative (Negative)
[2023-02-12] MEDS: D5NSS + 20MEQ KCL 20 MEQ/1,000 ML BAG IV SCH ×2 (05:53→19:50)
[2023-02-12] MEDS: cephALEXin 500 MG CAP PO SCH ×4 (05:54→23:00)
--- NOTE | 2023-02-12 08:37 | Electroencephalogram ---
EEG Procedure Note Date of Service February 12, 2023 Start / End Times Start Time: 0739 End Time: [address] Flaherty History 58-year-old with history of previous head trauma and seizures. He had a witnessed seizure yesterday. Home Medication List Medication Instructions Recorded Confirmed Type multivitamin with folic acid 400 1 tab PO QAM #30 tabs 08/30/21 02/12/23 Rx mcg tablet (Daily-Ellie (with folic acid)) polyethylene glycol 3350 17 17 g PO QDL PRN Constipation 09/06/21 02/12/23 History gram/dose oral powder (Miralax) magnesium hydroxide 400 mg/5 mL 30 ml PO DAILY PRN Constipation 12/06/21 02/12/23 Rx oral suspension (Milk of Magnesia) #355 mL folic acid 1 mg tablet 1 mg PO DAILY #90 tabs 02/01/22 02/12/23 Rx magnesium oxide 400 mg (241.3 mg 400 mg PO BID #180 tabs 08/15/22 02/12/23 Rx magnesium) tablet rifaximin 550 mg tablet (Xifaxan) 550 mg PO BID 08/26/22 02/12/23 History allopurinol 300 mg tablet 300 mg PO QAM 11/01/22 02/12/23 History lactulose 20 gram/30 mL oral 30 ml PO QAM 11/01/22 02/12/23 History solution nadolol 40 mg tablet 100 mg PO QAM 11/01/22 02/12/23 History levetiracetam 500 mg tablet 1,500 mg (3 x 500 mg) PO BID 30 11/26/22 02/12/23 Rx days #180 tabs thiamine HCl (vitamin B1) 100 mg 100 mg PO DAILY #90 tabs 11/29/22 02/12/23 Rx tablet (Vitamin B-1) spironolactone 50 mg tablet 50 mg PO DAILY #90 tabs 12/10/22 02/12/23 Rx lamotrigine 150 mg tablet 300 mg (2 x 150 mg) PO BID 30 days 12/19/22 02/12/23 Rx #120 tabs levetiracetam 250 mg tablet 250 mg PO BID #60 tabs 12/19/22 02/12/23 Rx rimegepant 75 mg disintegrating 75 mg PO Q OTHER DAY migraine #16 12/19/22 02/12/23 Rx tablet (Nurtec ODT) tabs melatonin 3 mg tablet 3 mg PO HS #90 tabs 01/06/23 02/12/23 Rx tamsulosin 0.4 mg capsule 0.4 mg PO HS #90 caps 01/06/23 02/12/23 Rx celecoxib 100 mg capsule (Celebrex) 100 mg PO BID #60 caps 01/08/23 02/12/23 Rx cephalexin 500 mg capsule 500 mg PO Q6H 7 days #28 caps 02/09/23 02/12/23 Rx Inpatient Medication List Cephalexin HCl (Cephalexin 500 Mg Cap) 500 mg PO Q6H MISTY; Protocol Stop: 02/16/23 05:59 Last Admin: 02/12/23 05:54 Dose: 500 mg Documented By: TY Potassium Chloride/Dextrose/Sod Cl (D5nss + 20meq Kcl) 20 meq in 1,000 mls @ 80 mls/hr IV .[id number] MISTY Stop: 03/14/23 04:59 Last Admin: 02/12/23 05:53 Dose: 80 mls/hr Documented By: TY Discontinued Medications Lorazepam 1 mg/ Syringe 1 mls @ 2 mls/min IV NOW STA Stop: 02/11/23 23:31 Last Admin: 02/12/23 01:46 Dose: Not Given Documented By: OPAL Levetiracetam 1,000 mg/ Sodium (Chloride) 110 mls @ 440 mls/hr IV NOW STA Stop: 02/11/23 23:46 Last Infusion: 02/12/23 00:24 Dose: Infused Documented By: Admin: 02/12/23 00:01 Dose: 440 mls/hr Documented By: OPAL Sodium Chloride (Nss) 1,000 mls @ 999 mls/hr IV .Q1H1M MISTY Stop: 02/12/23 00:45 Last Infusion: 02/12/23 01:07 Dose: Infused Documented By: Admin: 02/12/23 00:02 Dose: 999 mls/hr Documented By: OPAL Lorazepam (Lorazepam 2 Mg/1 Ml Vial) Confirm Administered Dose 2 mg .ROUTE .STK- MED ONE Stop: 02/11/23 23:33 Last Admin: 02/12/23 00:02 Dose: Not Given Documented By: OPAL Lorazepam (Lorazepam 1 Mg/1 Ml Syr Ed Inj Use) 1 mg IV ONE STA Stop: 02/12/23 02:41 Last Admin: 02/12/23 02:43 Dose: 1 mg Documented By: OPAL Naloxone HCl (Naloxone Hcl 0.4 Mg/1 Ml Vial/Carp) Confirm Administered Dose 0.4 mg .ROUTE .STK-MED ONE Stop: 02/11/23 23:35 Last Admin: 02/12/23 00:02 Dose: Not Given Documented By: OPAL Olanzapine (Olanzapine 10 Mg/2.1 Ml Sdv) 5 mg IM NOW STA Stop: 02/12/23 02:45 Last Admin: 02/12/23 04:15 Dose: 5 mg Documented By: TY Description This is a 21 electrode EEG with a single channel dedicated to limited EKG. The electrodes were placed in accordance with the International 10-20 system. Interpretation The predominant background activity consists of an irregular 8 Hz activity, of up to 40 mV in amplitude, seen symmetrically distributed over the posterior head regions bilaterally. This activity attenuates nicely with eye-opening and other alerting procedures. Throughout all head regions was a 7-8 hertz low amplitude rhythm. Photic stimulation was performed and elicited no change in the background activity and no abnormal responses were seen. Hyperventilation was no performed. A mild amount of muscle and movement artifact activity contaminated the recording, yet did not hinder interpretation to any significant degree. Throughout the waking portion of the recording, no focal abnormalities, or potentially epileptogenic discharges are seen. The patient entered the drowsy state from time to time throughout the recording, with no further activation. In summary, this EEG was mildly abnormal in that there was some mild generalized slowing seen throughout all head regions. No focal abnormalities or potentially epileptogenic discharges were seen. Clinical Correlation The mild generalized slowing is likely due to a very mild to mild encephalopathy which could be due to a wide variety of causes including postictal. Clinical correlation is required. The absence of potentially epileptogenic activity does not exclude a seizure disorder, since interictally, EEGs can be normal. [facility] EEG Procedure Codes Indication for Procedure (1) Seizure disorder: Neurology Neurology: 86018 EEG include record awake & drowsy
[2023-02-12] MEDS: CELECOXIB 100 MG CAP PO SCH ×2 (09:38→20:33)
[2023-02-12] MEDS: MAGNESIUM OXIDE 400 MG TAB PO SCH ×2 (09:40→20:33)
[2023-02-12] MEDS: FOLIC ACID 1 MG TAB PO SCH (09:40)
[2023-02-12] MEDS: SPIRONOLACTONE 25 MG TAB PO SCH (09:41)
[2023-02-12] MEDS: allopurinoL 300 MG TAB PO SCH (09:42)
[2023-02-12] MEDS: lamoTRIgine 100 MG TAB PO SCH ×2 (09:43→20:33)
[2023-02-12] MEDS: THIAMINE HCL 100 MG TAB PO SCH (09:43)
[2023-02-12] MEDS: levETIRAcetam 250 MG TAB PO SCH ×2 (09:44→20:08)
[2023-02-12] MEDS: levETIRAcetam 500 MG TAB PO SCH ×2 (09:45→20:08)
[2023-02-12] MEDS: nadoloL 40 MG TAB PO SCH (09:47)
[2023-02-12] MEDS: rifAXIMin 550 MG TABLET PO SCH ×2 (10:03→20:33)
[2023-02-12] MEDS: ENOXAPARIN INJ 40 MG/0.4 ML SYR SQ SCH (10:04)
[2023-02-12] MEDS: LACTULOSE SYRUP 20 GM/30 ML UDC PO SCH (10:05)
--- NOTE | 2023-02-12 10:12 | Neurology Consultation ---
Date of Consultation February 12, 2023 Assessment & Plan (1) Episode of unresponsiveness: (2) Seizure disorder: (3) Alcoholic cerebellar degeneration: (4) Peripheral neuropathy: Plan This patient has a history of remote head trauma and posttraumatic epilepsy, fairly well controlled on relatively high doses of levetiracetam and lamotrigine. The patient has been falling frequently (mostly from his legs being weak and giving out or just losing his balance). The patient has alcoholic cirrhosis and alcoholic cerebellar degeneration with peripheral neuropathy. Cerebellar ataxia and peripheral neuropathy will alter gait as well. Toxic anticonvulsant levels could create gait problems and cognitive issues. The patient's believes that he is not been cognitively is sharp as he typically is over the last 5 days or so. The patient had a fall last evening that was unwitnessed. He was unresponsive for some time thereafter. Clinically he is probably back to baseline this morning. Seizure activity creating a fall and postictal state is possible. A fall with head trauma and concussion could produce this picture as well. I do not see any focal neurologic signs currently. Recommendations: 1. MRI of the brain with and without contrast- compare to 02/12 scan 2. Physical and occupational therapy consults to evaluate 3. Consider EMG nerve conduction study of the legs (unfortunately this can only be done as an outpatient) 4. Awaiting anticonvulsant levels but they will take several days to come back. 5. Consider Lyme antibody titer, B12, aldolase, ammonia 6. I will follow. Overall, I spent a total of 90 minutes with this case including review of re cords, review of CT films, direct evaluation of the patient at bedside, report generation, and discussion of the case with the patient and RN at bedside, the patient's via telephone, and Dr. Dejesus including differential diagnosis and treatment options. History of Present Illness Reason for Consultation: Patient is a 58-year-old, who I was asked to see the request of , for neurologic consultation regarding episode of altered responsiveness. Requesting Physician: Dr. Flaherty Attending Physician: Randee Dejesus MD History of Present Illness Patient has a history of head trauma at age 16. He has had posttraumatic epilepsy ever since. He had injury to his right greater than left frontal lobes. The patient also has a history of alcohol use and abuse with cirrhosis, portal hypertension, alcoholic cerebellar degeneration with ataxia, and tremor. The tremor was unresponsive to Sinemet in the past. He has been following with Dr. Cade intermittently since 2010. he has been fairly stable on a combination of lamotrigine and levetiracetam. He claims that he is not had any alcohol for the last 2 years. Patient has had multiple seizures, with multiple admissions for seizures from alcohol, alcohol withdrawal, or missed medications. He is also had admissions for falling as well over the last year. I spoke to the via telephone and she says that over the last 5 days he is not been himself. His mobility is worse, the patient himself says that his legs are weak and he falls due to his legs giving out. He claims to have double vision looking to either side. His states that he can have sharp long-term memory but sometimes has poor short-term memory. The patient states that he is compliant with his medication, but the can not verify this as she does not supervise or monitor his medications. Patient came to the ER February 09 for frequent falls. He had multiple skin tears and is dorsal forearms as well as knees and shins. The patient himself does not think he hit his head and remembers the event. He was sent home. On February 11, the patient's was upstairs when she heard a loud noise and went down to the living room and found the patient unresponsive on the floor. He was not moving. She felt that he had hit his head either on the end table or a brass horse . By the time he got to the emergency room at 11:23 p.m. he had his eyes open and would follow some one-step commands but was not speaking. He had no focal findings on exam. Blood pressure was 157/90, pulse was 70 and regular, O2 saturation 93%. He had mild anemia on CBC and Chem profile was unremarkable. TSH, CK, and urinalysis were unremarkable as well. CT scan of the head showed some mild atrophy but no acute changes. There was some left maxillary sinusitis present. CT scan of the cervical spine showed diffuse degenerative changes but no acute problems or fractures. Currently the patient feels okay. He has no pain, weakness, or other issues in bed. Allergies Allergy/AdvReac Type Severity Reaction Status Date / Time No Known Allergies Allergy Verified 02/12/23 00:12 Home Medications Medication Instructions Recorded Confirmed Type multivitamin with folic acid 400 1 tab PO QAM #30 tabs 08/30/21 02/12/23 Rx mcg tablet (Daily-Ellie (with folic acid)) polyethylene glycol 3350 17 17 g PO QDL PRN Constipation 09/06/21 02/12/23 History gram/dose oral powder (Miralax) magnesium hydroxide 400 mg/5 mL 30 ml PO DAILY PRN Constipation 12/06/21 02/12/23 Rx oral suspension (Milk of Magnesia) #355 mL folic acid 1 mg tablet 1 mg PO DAILY #90 tabs 02/01/22 02/12/23 Rx magnesium oxide 400 mg (241.3 mg 400 mg PO BID #180 tabs 08/15/22 02/12/23 Rx magnesium) tablet rifaximin 550 mg tablet (Xifaxan) 550 mg PO BID 08/26/22 02/12/23 History allopurinol 300 mg tablet 300 mg PO QAM 11/01/22 02/12/23 History lactulose 20 gram/30 mL oral 30 ml PO QAM 11/01/22 02/12/23 History solution nadolol 40 mg tablet 100 mg PO QAM 11/01/22 02/12/23 History levetiracetam 500 mg tablet 1,500 mg (3 x 500 mg) PO BID 30 11/26/22 02/12/23 Rx days #180 tabs thiamine HCl (vitamin B1) 100 mg 100 mg PO DAILY #90 tabs 11/29/22 02/12/23 Rx tablet (Vitamin B-1) spironolactone 50 mg tablet 50 mg PO DAILY #90 tabs 12/10/22 02/12/23 Rx lamotrigine 150 mg tablet 300 mg (2 x 150 mg) PO BID 30 days 12/19/22 02/12/23 Rx #120 tabs levetiracetam 250 mg tablet 250 mg PO BID #60 tabs 12/19/22 02/12/23 Rx rimegepant 75 mg disintegrating 75 mg PO Q OTHER DAY migraine #16 12/19/22 02/12/23 Rx tablet (Nurtec ODT) tabs melatonin 3 mg tablet 3 mg PO HS #90 tabs 01/06/23 02/12/23 Rx tamsulosin 0.4 mg capsule 0.4 mg PO HS #90 caps 01/06/23 02/12/23 Rx celecoxib 100 mg capsule (Celebrex) 100 mg PO BID #60 caps 01/08/23 02/12/23 Rx cephalexin 500 mg capsule 500 mg PO Q6H 7 days #28 caps 02/09/23 02/12/23 Rx Patient History Medical History Infection present to right knee, on treatment, following with PCP, some drainage present, keeps covered Poor historian History of seizure due to alcohol withdrawal quit drinking in 2020 BPH w urinary obs/LUTS Esophageal varices History of kidney stones Alcoholic cirrhosis Right knee DJD Left knee DJD Coronary artery disease no cardio Alcoholic cerebellar degeneration Peripheral neuropathy Portal hypertension Seizure disorder (01/04/13) DX > 1981 > last seizure 2019 > grand mal > follows with Dr. Cade Tremor Hypertension Chronic venous insufficiency Gout Surgical History History of colonoscopy History of anesthesia reaction "was out strong enough for scope to go down, still had gag reflex" History of varicose vein ligation and stripping BILAT History of fracture of skull REPAIR SKULL-NO PLATE History of cystoscopy History of umbilical hernia repair History of esophagogastroduodenoscopy (EGD) Family History Father , in his 70s Family history of diabetes mellitus Cardiac disorder Mother Family history of diabetes mellitus Gout Sister Family history of diabetes mellitus Other No family history of adverse response to anesthesia Social History Smoking Status: Never smoker Tobacco Type: Cigarettes Second Hand Exposure: No; Do You Dip or Chew Tobacco: No (quit 6 yrs ago); Hx Alcohol Use: Yes Alcohol type: beer Hx Substance Use: No Preferred Language: Moldovan Communication Ability: Effective Child And Family Therapist Required: No Beliefs That Will Affect Care: None Current Living Situation: Spouse Other Information That Helps Us Care for You: No Feels Safe at Home: Yes Safety Concerns: Feels Safe At This Time Safety Concerns Comment: Concerned about having seizures/falling when home alone Childhood Exposure to Second-Hand Smoke: Yes Diet: regular caffeine: No Assistive Devices: Brace/Splint/Immobilizer and Cane Review of Systems Constitutional: no fever, no fatigue and no weakness Eyes: + diplopia; no eye pain and no worsening vision Ear, Nose, Mouth, Throat: no ear pain, no tinnitus, no hearing loss, no dizziness, no snoring, no hoarseness and no dysphagia Respiratory: + dyspnea; no cough Cardiovascular: no chest pain, no palpitations and no lightheadedness Gastrointestinal: no abdominal pain, no nausea and no vomiting Musculoskeletal: no back pain, no neck pain, no radicular pain, no joint pain and no myalgia Integumentary: no rash and no lesions Neurologic: + gait abnormality, + localized weakness and + tremor(s); no generalized weakness, no tingling, no numbness, no abnormal movements, no headache(s), no abnormal speech, no confusion and no memory loss Psychiatric: no depression, no irritability, no anxiety, no difficulty concentrating, no confusion and no hallucinations Endocrine: no fatigue and no flushing Hematologic / Lymphatic: no easy bleeding and no easy bruising Allergy / Immunological: no urticaria and no problem reported Exam (Neuro) Physical Exam: The patient is right-handed to write and left handed with using tools. The patient is awake, alert, and attentive. Speech is normal without any aphasia or dysarthria. He is oriented to his name and age does fairly well with long and short-term questioning. Mood is reasonable and affect is appropriate. Pupils are 3 mm bilaterally and reactive to light. Extraocular eye muscles are intact without nystagmus. Despite his symptom of double vision with lateral gaze (which he did not have currently) I did not see any dysconjugate gaze. Visual acuity and visual callejas seem normal grossly to confrontation. There are no deficits to sensation in the face in all 3 distributions of the fifth cranial nerve bilaterally. Corneal reflexes are positive bilaterally. Facial strength and symmetry was normal bilaterally. Hearing is decreased bilaterally. Palate moves well without asymmetry. There is normal sternocleidomastoid and trapezius (shoulder shrug) strength bilaterally. Tongue is midline with good strength bilaterally. Neck has a full range of motion without discomfort. There are no cervical bruits bilaterally. There are no cranial or ocular bruits. Heart is without murmur. There is a regular rhythm and rate. Cervical spine is nontender to palpation. Gait was not tested. Stance sitting up was difficult. With outstretched arms there is no drift. There are no resting, postural, or action tremors. Patient had some mild asterixis with outstretched arms bilaterally. There is no ataxia with finger to nose testing. There is good facility in the hands. No other abnormal involuntary movements are noted. Motor strength is 5/5 diffusely in the arms bilaterally including deltoids, biceps, triceps, brachioradialis, wrist flexors and extensors, injection operator, and intrinsic hand muscles. Motor strength is 5/5 diffusely in the legs bilaterally including hip flexors, quadriceps, hamstrings, gastrocnemius, tibialis anterior, tibialis posterior, and Peroneii muscles. Toe extensors are normal and there is good bulk in the extensor digitorum brevis muscles bilaterally. The limbs have good tone without rigidity or spasticity. There is no atrophy noted in the muscles. Muscle bulk is normal, there is no tenderness to palpation, no myotonia to percussion, and no fasciculations seen. Sensory examination is intact to touch and pin throughout all 4 limbs diffusely. Reflexes are 1/4 in the biceps, triceps, brachioradialis, quadriceps, and Achilles tendons bilaterally. There is no clonus bilaterally. Toes are downgoing with plantar stimulation bilaterally. Peripheral pulses are present and of normal quality distally in all 4 limbs. There is no peripheral edema noted in the limbs. Results & Data Vital Signs (Past 12 Hours) Vital Signs Temp Pulse Pulse Resp BP BP Pulse Ox 02/12/23 09:36 63 19 160/104 H 95 02/12/23 07:58 67 02/12/23 07:00 63 17 02/12/23 06:02 153/80 H 02/12/23 06:02 66 18 02/12/23 06:01 36.8 C 68 16 153/80 H 97 02/12/23 06:00 68 23 02/12/23 05:00 78 26 H 92 02/12/23 04:53 69 18 94 02/12/23 04:53 02/12/23 04:00 66 19 94 02/12/23 03:36 68 02/12/23 03:00 69 24 95 02/12/23 02:50 71 13 92 02/12/23 02:40 23 98 02/12/23 02:30 15 94 02/12/23 02:20 15 98 02/12/23 02:10 95 02/12/23 02:00 76 22 72 L 02/12/23 01:50 75 15 93 02/12/23 01:40 67 20 94 02/12/23 01:30 141/74 H 02/12/23 01:30 64 22 88 L 02/12/23 01:20 69 20 95 02/12/23 01:10 62 18 95 02/12/23 01:00 67 15 95 02/12/23 01:00 124/93 02/12/23 00:50 63 18 96 02/12/23 00:40 67 18 94 02/12/23 00:30 64 19 96 02/12/23 00:30 160/97 H 02/12/23 00:20 62 19 95 02/12/23 00:10 61 17 94 02/12/23 00:00 151/83 H 02/12/23 00:00 63 19 95 02/11/23 23:59 64 15 95 02/11/23 23:40 63 18 98 02/11/23 23:30 150/90 H 02/11/23 23:30 63 17 98 02/11/23 23:29 65 02/11/23 23:26 66 18 95 02/11/23 23:23 93 02/11/23 23:23 70 13 157/90 H 93 Pulse Ox O2 Del Method O2 Del Method O2 Flow Rate 02/12/23 09:36 Room Air 02/12/23 07:58 02/12/23 07:00 02/12/23 06:02 02/12/23 06:02 02/12/23 06:01 Room Air 02/12/23 06:00 02/12/23 05:00 02/12/23 04:53 Room Air 02/12/23 04:53 94 Room Air 02/12/23 04:00 02/12/23 03:36 02/12/23 03:00 02/12/23 02:50 02/12/23 02:40 02/12/23 02:30 02/12/23 02:20 02/12/23 02:10 02/12/23 02:00 02/12/23 01:50 02/12/23 01:40 02/12/23 01:30 02/12/23 01:30 02/12/23 01:20 02/12/23 01:10 02/12/23 01:00 02/12/23 01:00 02/12/23 00:50 02/12/23 00:40 02/12/23 00:30 02/12/23 00:30 02/12/23 00:20 02/12/23 00:10 02/12/23 00:00 02/12/23 00:00 02/11/23 23:59 02/11/23 23:40 02/11/23 23:30 02/11/23 23:30 02/11/23 23:29 02/11/23 23:26 02/11/23 23:23 Room Air 0 02/11/23 23:23 Room Air PG Care Time/CCT Total # of Minutes Spent Total Time Spent with Patient: Total time spent is greater than 50% in coordination of care (as documented) at patient's floor/unit and/or counseling patient: Coding Level of Care Code 01970 INT INP/OBS CARE 3/75MIN Diagnoses Episode of unresponsiveness R40.4 Seizure disorder G40.909 Alcoholic cerebellar degeneration F10.20; G31.2 Peripheral neuropathy G62.9 Time Spent (min) 90
[2023-02-12 12:46] LABS: Lyme Ab IgG w/WB Rflx Negative (Negative); Lyme Ab IgM w/WB Rflx Negative (Negative)
--- NOTE | 2023-02-12 14:38 | Magnetic Resonance Report ---
MRI OF THE BRAIN COMBO CLINICAL HISTORY: Falls. Seizure. COMPARISON STUDY: CT of the brain dated 02/11/2023. MRI of the brain dated 01/31/2022. TECHNIQUE: MRI of the brain was performed utilizing various T1 and T2-weighted sequences in the axial , sagittal, and coronal planes. Contrast-enhanced sequences were acquired following the administratio n of 11 cc of Gadavist. The examination was performed using the seizure protocol. Examination is mode stly degraded by motion artifact. FINDINGS: Brain parenchyma: There is age related involutional change. Small foci of right frontal and right ant erior temporal encephalomalacia are unchanged and consistent with remote insults. There is no hemorrh age or mass effect. There is no restricted diffusion to suggest acute ischemia. No enhancing mass les ion is identified on the postcontrast images. Ayala-white matter differentiation is preserved. No extr a-axial fluid collection is seen. The cerebellar tonsils are normal in configuration. The hippocampi are normal and symmetric. Ventricles, sulci, and cisterns: Prominent secondary to involutional change. Pituitary and sella: Unremarkable. Intracranial vasculature: Normal flow voids are maintained at the skull base. Orbits: The bony orbits are grossly intact. Orbital contents are normal in appearance. Sinuses and mastoids: There is subtotal opacification of the left maxillary antrum. The remaining par anasal sinuses and the mastoid air cells are clear. Calvarium: There is chronic deformity of the right frontal bone. No destructive bony lesion is identi fied. Cervical cord: Partially visualized cervical spinal cord is normal in morphology and signal intensity . IMPRESSION: 1. Chronic changes as above with no acute intracranial abnormality identified. 2. Left maxillary sinus disease. ACT 112: Negative or not required by law. Electronically signed by: Mike Jay M.D. 02/12/2023 2:35 PM
[2023-02-12] MEDS: TAMSULOSIN HCL 0.4 MG CAP PO SCH (20:08)
[2023-02-13] MEDS ORDERED: OLANZapine 10 MG/2.1 ML SDV IM STA ×2 (01:50→06:11)
[2023-02-13] MEDS: cephALEXin 500 MG CAP PO SCH ×3 (05:19→17:58)
--- NOTE | 2023-02-13 05:41 | Billing Data ---
Date of Service February 13, 2023 Coding Level of Care Code 30293 INT INP/OBS CARE
[2023-02-13 07:16] LABS: Basophils # (auto) 0.04 K/uL (0.00-0.20); Basophils % (auto) 1.1 %; Eosinophils # (auto) 0.11 K/uL (0.00-0.50); Eosinophils % (auto) 2.9 %; Hematocrit (blood only) 37.7 % (42.0-52.0); Hemoglobin 13.4 g/dl (14.0-18.0); Immature Granulocytes # (auto) 0.02 K/uL (0.01-0.20); Immature Granulocytes % (auto) 0.5 %; Lymphocytes # (auto) 0.87 K/uL (1.20-3.40); Lymphocytes % (auto) 23.2 %; Mean Corpuscular Hemoglobin 34.3 pg (25.0-34.0); Mean Corpuscular Hgb Conc 35.5 g/dL (32.0-36.0); Mean Corpuscular Volume 96.4 fL (80.0-100.0); Mean Platelet Volume 9.2 fL (9.4-12.4); Monocytes # (auto) 0.45 K/uL (0.11-0.59); Neutrophils # (auto) 2.26 K/uL (1.40-6.50); Neutrophils % (auto) 60.3 %; Platelet Count 97 K/uL (130-400); RDW Coefficient of Variation 12.5 % (11.5-14.5); RDW Standard Deviation 44.1 fL (36.4-46.3); Red Blood Count 3.91 M/uL (4.70-6.10); White Blood Count 3.75 K/ul (4.8-10.8)
--- NOTE | 2023-02-13 07:21 | Electrocardiogram Report ---
Test Reason : Blood Pressure : / mmHG Vent. Rate : 070 BPM Atrial Rate : 070 BPM P-R Int : 146 ms QRS Dur : 086 ms QT Int : 440 ms P-R-T Axes : 036 -51 -15 degrees QTc Int : 475 ms Normal sinus rhythm Left anterior fascicular block Minimal voltage criteria for LVH, may be normal variant ( R in aVL ) Abnormal ECG When compared with ECG of 09-FEB-2023 03:33, T wave inversion now evident in Inferior leads Confirmed by Savage Toure ([id number]) on 02/13/2023 7:21:08 AM Referred By: REFERRED SELF Confirmed By:Savage Toure
--- NOTE | 2023-02-13 07:23 | Electrocardiogram Report ---
Test Reason : Blood Pressure : / mmHG Vent. Rate : 063 BPM Atrial Rate : 063 BPM P-R Int : 130 ms QRS Dur : 096 ms QT Int : 458 ms P-R-T Axes : 104 -27 -11 degrees QTc Int : 468 ms Poor data quality, interpretation may be adversely affected Normal sinus rhythm Minimal voltage criteria for LVH, may be normal variant ( R in aVL ) Abnormal ECG When compared with ECG of 09-FEB-2023 03:33, No significant change Confirmed by Savage Toure ([id number] on 02/13/2023 7:22:29 AM Referred By: REFERRED SELF Confirmed By:Savage Toure
[2023-02-13 07:40] LABS: Albumin Level 3.6 gm/dl (3.4-5.0); BUN Creatinine Ratio 9.4 (10-20); Calcium 9.3 mg/dl (8.6-10.3); Creatinine Clr Calc Pharmacy 157.9 ml/min; Est GFR (African American) 123.3 ml/min; Est GFR (Non-African American) 106.4 ml/min; Phosphorus 3.2 mg/dl (2.5-4.9); Potassium 3.9 mmol/L (3.5-5.1)
--- NOTE | 2023-02-13 08:42 | Neurology Progress Note ---
Date of Service February 13, 2023 Assessment & Plan (1) Episode of unresponsiveness: (2) Seizure disorder: (3) Alcoholic cerebellar degeneration: (4) Peripheral neuropathy: Plan This patient has a history of remote head trauma and posttraumatic epilepsy, fairly well controlled on relatively high doses of levetiracetam and lamotrigine. The patient has been falling frequently (mostly from his legs being weak and giving out or just losing his balance). He is highly bruised from this. The patient has alcoholic cirrhosis and alcoholic cerebellar degeneration with peripheral neuropathy. Cerebellar ataxia and peripheral neuropathy will alter gait as well. Toxic anticonvulsant levels could create gait problems and cognitive issues. The patient's believes that he is not been cognitively is sharp as he typically is over the last 5 days or so. Today he is appearing delirious. MRI of the brain showed no stroke or acute problems. He is afebrile with a normal white count and no meningeal signs. No seizure activity has been witnessed by nursing or the MANAGER TRAVEL at bedside. He does not have an elevated ammonia (like previous admissions creating confusion). He has no focal signs on exam Zyprexa has been given without much success so far. This appears to be to xic/metabolic/infectious, but no metabolic abnormalities have been seen and there are no signs of infection. I am concerned that he does not take medications correctly at home ( admits that he is not supervised with his medication) and now that he is in the hospital he is getting his full doses. I have seen individuals with toxic levels of levetiracetam have encephalopathy and confusion. The same would be true for Lamictal. Problem is that the levels of these medications take several days to come back. Without the levels I am hesitant to just hold anticonvulsants as he is fairly brittle with his seizure disorder. Again, interestingly, the patient had an unwitnessed fall, with unresponsiveness, the evening of February 11. When I saw him in the morning of February 12 his mental status seemed probably baseline. A seizure could not be excluded nor could a concussion after closed head trauma with the fall. The only thing that I can see that is different from yesterday morning is that he is getting his anticonvulsant medication as prescribed. Recommendations: 1. Consider changing his morning doses of anticonvulsants to 100 mg of Lamictal and 750 mg of levetiracetam 2. EMG nerve conduction study of the legs (unfortunately this can only be done as an outpatient) 3. Awaiting anticonvulsant levels but they will take several days to come back. 4. Consider lumbar puncture but, again, there are no signs of infection or any meningeal signs 5. Caution with too much Zyprexa Overall, I spent a total of 50 minutes with this case including review of records, review of MRI films, direct evaluation of the patient at bedside, report generation, and discussion of the case with the patient and RN at bedside, the patient's via telephone, and Dr. Dejesus including differential diagnosis and treatment options. Admission and Anticipated Discharge Date Admission Date: February 12, 2023 Subjective Patient has been very restless and delirious overnight. He has received a total of 12.5 mg Zyprexa since 2199February 12 up until 614 today MRI of the brain showed no acute changes although there was an active left maxillary sinusitis. He is receiving Keflex. He is receiving his prescribed doses of anticonvulsants and there has been no seizure activity noted since admission. CBC and Chem profile were largely unremarkable. Lyme antibody titers were negative and B12 was unremarkable. Ammonia level was normal at 39. Lactate was normal at 1.3. He is afebrile and blood pressure is 180/76. White count is mildly low with low platelet count and borderline anemia Results & Data Vital Signs (Past 12 Hours) Vital Signs Temp Pulse Resp BP BP Pulse Ox O2 Del Method 02/13/23 07:05 36.6 C 62 18 180/76 H 94 Room Air 02/12/23 22:00 36.5 C 68 18 171/83 H 95 Room Air Exam (Neuro) Physical Exam: He is very restless in bed and making some nonspecific noises moving all 4 limbs frequently. He will focus and look at me when I speak to him and will try to answer questions. He is dysarthric. He told me his name. He did not remember me from yesterday. Would follow simple one-step commands Extraocular eye muscles seem intact without nystagmus and there is no facial droop. Tongue is midline. Strength is 5/5 diffusely in the arms both proximally and distally. Leg strength is more difficult to be certain but seems to be close to 5/5 diffusely (he is not as cooperative). No abnormal involuntary movements are otherwise noted. Tone is reasonable in the limbs. PG Care Time/CCT Total # of Minutes Spent Total Time Spent with Patient: Total time spent is greater than 50% in coordination of care (as documented) at patient's floor/unit and/or counseling patient: Coding Level of Care Code 95057 SUB INP/OBS CARE 3/50MIN Diagnoses Episode of unresponsiveness R40.4 Seizure disorder G40.909 Alcoholic cerebellar degeneration F10.20; G31.2 Peripheral neuropathy G62.9 Time Spent (min) 50
[2023-02-13] MEDS: D5NSS + 20MEQ KCL 20 MEQ/1,000 ML BAG IV SCH (09:24)
--- NOTE | 2023-02-13 10:10 | Hospitalist Progress Note ---
Date of Service February 13, 2023 Assessment & Plan (1) Acute encephalopathy: Plan: Etiology is uncertain, could be acute toxic encephalopathy due to medications. According to the patient has been cognitively declining over the past 5 days not as sharp as he used to be. She admits that he takes his medication without being monitored. Neurology on consult, MRI of the brain did not show any acute pathology, only chronic changes. EEG showed only slight slowing Ammonia level is within normal limits no sign of infection. Will reduce the dose of Keppra to 750 mg twice daily and also lamotrigine to 100 mg daily Monitor Keppra levels and lamotrigine levels One-to-one sitter (2) Fall: Plan: -Fall at home, unclear at the current time if there was any witnessed seizure activity from the as she is not in the room with him at the time of interview. -WBC count WNL, hgb and platelets around baseline for patient. -CMP unremarkable, lactate normal, alcohol level negative. -CT head w/o acute intracranial abnormality, acute sinusitis L maxillary sinus, mild cerebral atrophy. -CT neck without any acute fractures. -Lam catheter in ER drained ~900cc, urinary retention, possible UTI vs BPH. -Patient has a history of frequent falls, difficult to say if this is the same course vs seizure. -At home, he is on Keppra 1750mg BID and lamotrigine 300mg BID. Unclear if patient is compliant. Will send for Keppra and lamotrigine level. -Possible post-ictal state with drowsiness. -Ordered EEG, consulted neurology, follows with [place] neurology outpatient, will appreciate recommendations. -Continue to monitor on telemetry (3) Urinary retention: Plan: -Urinary retention in ER with ~900cc of drainage. -Urinalysis with culture pending. -If urinalysis shows signs of infection could start on Ceftriaxone for coverage. (4) Seizure disorder: Plan: -As above, follows with [place] neurology outpatient. -On Keppra 1750mg BID and lamotrigine 300mg BID. -Ordered EEG. (5) Hypertension: Plan: -Continue home nadolol (6) Chronic venous insufficiency: Plan: -Chronic issue. Noted. (7) Multiple skin tears: Plan: -Multiple falls, abrasions from multiple falls present, wound care ordered. (8) Frequent falls: Plan: -History of frequent falls. Fall precautions in place, PT/OT consulted for eval and treat. (9) Alcoholic cirrhosis: Plan: -Alcohol negative on admission. -continue home lactulose, spironolactone, rifaximin. (10) BPH w urinary obs/LUTS: Plan: -Likely contributing to urinary retention, continue home tamsulosin. Plan F/E/N/GI: NPO while drowsy, if more awake can progress diet DVT Prophylaxis: Lovenox 40mg daily. Code status: Patient was DNR on previous admission, however not able to get response from patient at the current time regarding code status, will make full code - will need clarification during the day time with patient or . Dispo: Telemetry. Admission and Anticipated Discharge Date Admission Date: February 12, 2023 Subjective Patient seen and examined today, according to the nurse he became more delirious overnight. This morning was agitated and confused with one-to-one sitter by the bedside. Review of Systems Review of Systems: Unable to obtain due to confusion Physical Exam Physical Exam: The patient is awake, confused and agitated HEENT--PERRL, EOMI, mucous membranes and oropharynx mildly dry Neck--supple. No JVD. No bruits. Thyroid normal, trachea midline, no adenopathy. Heart--normal S1 and S2. No murmurs, rubs or gallops. Lungs--clear bilaterally, no respiratory distress, no accessory muscle use. Abdomen--normal bowel sounds and soft. Mild epigastric and left sided abdominal pain Extremities--no cyanosis or clubbing. No edema. Dermatologic--normal skin turgor, normal color, no abnormal lymph nodes, no rash. Neurologic--cranial nerves II through XII grossly intact. Rheumatologic--normal range of motion. Psychiatric--agitated. Results & Data Results & Data Vital Signs (Past 12 Hours) Vital Signs Temp Pulse Resp BP Pulse Ox O2 Del Method 02/13/23 07:05 97.9 F 62 18 180/76 H 94 Room Air PG Care Time/CCT Total # of Minutes Spent Total Time Spent with Patient: Total time spent is greater than 50% in coordination of care (as documented) at patient's floor/unit and/or counseling patient: Coding Level of Care Code 20407 SUB INP/OBS CARE 2/35MIN Diagnoses Acute encephalopathy G93.40 Fall W19.XXXA Urinary retention R33.9 Seizure disorder G40.909 Hypertension I10 Chronic venous insufficiency I87.2 Multiple skin tears T14.8XXA Frequent falls R29.6 Alcoholic cirrhosis K70.30 BPH w urinary obs/LUTS N40.1; N13.8 Time Spent (min) 35
[2023-02-13] MEDS: levETIRAcetam 500 MG TAB PO SCH (11:02)
[2023-02-13] MEDS: lamoTRIgine 100 MG TAB PO SCH ×2 (11:02→20:13)
[2023-02-13] MEDS: SODIUM CHLORIDE 0.9% 1,000 ML IV SCH ×2 (11:06→23:34)
[2023-02-13] MEDS: ENOXAPARIN INJ 40 MG/0.4 ML SYR SQ SCH (11:08)
[2023-02-13] MEDS: allopurinoL 300 MG TAB PO SCH (12:20)
[2023-02-13] MEDS: LACTULOSE SYRUP 20 GM/30 ML UDC PO SCH (12:20)
[2023-02-13] MEDS: CELECOXIB 100 MG CAP PO SCH ×2 (12:20→20:13)
[2023-02-13] MEDS: levETIRAcetam 250 MG TAB PO SCH (12:20)
[2023-02-13] MEDS: FOLIC ACID 1 MG TAB PO SCH (12:20)
[2023-02-13] MEDS: MAGNESIUM OXIDE 400 MG TAB PO SCH ×2 (12:21→20:13)
[2023-02-13] MEDS: THIAMINE HCL 100 MG TAB PO SCH (12:21)
[2023-02-13] MEDS: nadoloL 40 MG TAB PO SCH (12:21)
[2023-02-13] MEDS: SPIRONOLACTONE 25 MG TAB PO SCH (12:21)
[2023-02-13] MEDS: rifAXIMin 550 MG TABLET PO SCH ×2 (12:21→20:13)
[2023-02-13] MEDS: levETIRAcetam 750 MG in SODIUM CHLOR 0.9% MINI-B 100 ML IV SCH (14:34)
[2023-02-13] MEDS: TAMSULOSIN HCL 0.4 MG CAP PO SCH (20:13)
[2023-02-14] MEDS: levETIRAcetam 750 MG in SODIUM CHLOR 0.9% MINI-B 100 ML IV SCH ×2 (00:04→13:03)
[2023-02-14] MEDS: cephALEXin 500 MG CAP PO SCH ×4 (00:07→17:30)
[2023-02-14 07:42] LABS: Basophils # (auto) 0.02 K/uL (0.00-0.20); Basophils % (auto) 0.5 %; Eosinophils # (auto) 0.09 K/uL (0.00-0.50); Eosinophils % (auto) 2.3 %; Hematocrit (blood only) 35.7 % (42.0-52.0); Hemoglobin 12.6 g/dl (14.0-18.0); Lymphocytes # (auto) 0.67 K/uL (1.20-3.40); Lymphocytes % (auto) 17.3 %; Mean Corpuscular Hemoglobin 34.9 pg (25.0-34.0); Mean Corpuscular Hgb Conc 35.3 g/dL (32.0-36.0); Mean Corpuscular Volume 98.9 fL (80.0-100.0); Mean Platelet Volume 9.5 fL (9.4-12.4); Monocytes # (auto) 0.34 K/uL (0.11-0.59); Monocytes % (auto) 8.8 %; Neutrophils # (auto) 2.75 K/uL (1.40-6.50); Neutrophils % (auto) 71.1 %; Platelet Count 99 K/uL (130-400); RDW Coefficient of Variation 12.6 % (11.5-14.5); RDW Standard Deviation 45.3 fL (36.4-46.3); Red Blood Count 3.61 M/uL (4.70-6.10); White Blood Count 3.87 K/ul (4.8-10.8)
[2023-02-14 08:06] LABS: Albumin Level 3.2 gm/dl (3.4-5.0); Creatinine Clr Calc Pharmacy 181.5 ml/min; Est GFR (African American) 131.3 ml/min; Est GFR (Non-African American) 113.3 ml/min; Phosphorus 3.2 mg/dl (2.5-4.9); Potassium 3.7 mmol/L (3.5-5.1)
--- NOTE | 2023-02-14 09:53 | Neurology Progress Note ---
Date of Service February 14, 2023 Assessment & Plan (1) Episode of unresponsiveness: (2) Seizure disorder: (3) Alcoholic cerebellar degeneration: (4) Peripheral neuropathy: Plan This patient has a history of remote head trauma and posttraumatic epilepsy, fairly well controlled on relatively high doses of levetiracetam and lamotrigine. The patient has been falling frequently (mostly from his legs being weak and giving out or just losing his balance). He is highly bruised from this. The patient has alcoholic cirrhosis and alcoholic cerebellar degeneration with peripheral neuropathy. Cerebellar ataxia and peripheral neuropathy will alter gait as well. Toxic anticonvulsant levels could create gait problems and cognitive issues. The patient's believes that he is not been cognitively is sharp as he typically is over the last 5 days or so. On February 13, he appeared acutely delirious. MRI of the brain showed no stroke or acute problems. He is afebrile with a normal white count and no meningeal signs. No seizure activity had been witnessed by nursing or the NURSE GYNECOLOGY at bedside. He does not have an elevated ammonia (like previous admissions creating confusion). He has no focal signs on exam Zyprexa has been given without much success so far. This appeared to be toxic/metabolic/infectious, but no metabolic abnormalities have been seen and there are no signs of infection. I was concerned that he does not take medications correctly at home ( admits that he is not supervised with his medication) and now that he is in the hospital he is getting his full doses. I have seen individuals with toxic levels of levetiracetam have encephalopathy and confusion. The same would be true for Lamictal. Problem is that the levels of these medications take several days to come back. Without the levels I am hesitant to just hold anticonvulsants as he is fairly brittle with his seizure disorder. Again, interestingly, the patient had an unwitnessed fall, with unresponsiveness, the evening of February 11. When I saw him in the morning of February 12 his mental status seemed probably baseline. A seizure could not be excluded nor could a concussion after closed head trauma with the fall. The only thing that I saw on 02/13 different from 02/12 in the morning was that he was getting his anticonvulsant medication as prescribed. Anticonvulsant doses were lowered to 100 mg lamotrigine and 750 mg of levetiracetam on February 13. This morning he is back to baseline with no delirium or other acute neurologic issues. This rapid change is likely due to the lowering of anticonvulsants. Recommendations: 1. Continue with lamotrigine 150 mg twice a day and levetiracetam 1000 mg twice a day, starting on February 15. We will keep him at the current, lower dose today. 2. EMG nerve conduction study of the legs (unfortunately this can only be done as an outpatient) 3. Awaiting anticonvulsant levels but they will take several days to come back. 4. Consider lumbar puncture but, again, there are no signs of infection or any meningeal signs 5. Caution with too much Zyprexa Overall, I spent a total of 35 minutes with this case including review of records, direct evaluation of the patient at bedside, report generation, and discussion of the case with the patient and RN at bedside, and Dr. Dejesus, including differential diagnosis and treatment options. Admission and Anticipated Discharge Date Admission Date: February 12, 2023 Subjective The patient is doing very well this morning without pain, confusion, agitation, or restlessness. He is sitting in bed reading after having had breakfast. He is calm, cooperative, and pleasant. He denies headache or pain. Nursing reports no new issues. CBC and Chem profile were largely unremarkable today. Results & Data Vital Signs (Past 12 Hours) Vital Signs Temp Pulse Pulse Resp BP Pulse Ox O2 Del Method 02/14/23 07:11 36.6 C 64 18 159/77 H 96 Room Air 02/14/23 05:48 65 02/13/23 22:54 36.6 C 58 L 16 154/77 H 92 Room Air Exam (Neuro) Physical Exam: He is awake and alert. Speech is without aphasia or dysarthria. He is pleasant, calm, and cooperative. Coordination is normal in the arms although there is some mild ataxia with [id number] testing. Strength is symmetrical in the limbs. He is sitting up without issue. PG Care Time/CCT Total # of Minutes Spent Total Time Spent with Patient: Total time spent is greater than 50% in coordination of care (as documented) at patient's floor/unit and/or counseling patient: Coding Level of Care Code 30286 SUB INP/OBS CARE 2/35MIN Diagnoses Episode of unresponsiveness R40.4 Seizure disorder G40.909 Alcoholic cerebellar degeneration F10.20; G31.2 Peripheral neuropathy G62.9
[2023-02-14] MEDS: FOLIC ACID 1 MG TAB PO SCH (10:22)
[2023-02-14] MEDS: CELECOXIB 100 MG CAP PO SCH ×2 (10:23→20:58)
[2023-02-14] MEDS: THIAMINE HCL 100 MG TAB PO SCH (10:23)
[2023-02-14] MEDS: SPIRONOLACTONE 25 MG TAB PO SCH (10:23)
[2023-02-14] MEDS: lamoTRIgine 100 MG TAB PO SCH ×2 (10:23→20:58)
[2023-02-14] MEDS: allopurinoL 300 MG TAB PO SCH (10:24)
[2023-02-14] MEDS: MAGNESIUM OXIDE 400 MG TAB PO SCH ×2 (10:24→20:59)
[2023-02-14] MEDS: nadoloL 40 MG TAB PO SCH (10:24)
[2023-02-14] MEDS: LACTULOSE SYRUP 20 GM/30 ML UDC PO SCH (10:25)
[2023-02-14] MEDS: ENOXAPARIN INJ 40 MG/0.4 ML SYR SQ SCH (10:25)
[2023-02-14] MEDS: SODIUM CHLORIDE 0.9% 1,000 ML IV SCH (11:59)
--- NOTE | 2023-02-14 12:46 | Hospitalist Progress Note ---
Date of Service February 14, 2023 Assessment & Plan (1) Acute encephalopathy: Plan: Etiology is uncertain, could be acute toxic encephalopathy due to medications. Now resolved, patient back to baseline. Etiology is likely toxic due to medications, doses have been reduced. Will continue on the reduced dose of Keppra 750 milligram twice daily and also lamotrigine 100 mg BID daily According to the patient has been cognitively declining over the past 5 days not as sharp as he used to be. She admits that he takes his medication without being monitored. Neurology on consult, MRI of the brain did not show any acute pathology, only chronic changes. EEG showed only slight slowing Ammonia level is within normal limits no sign of infection. Monitor Keppra levels and lamotrigine levels One-to-one sitter will be discontinued (2) Seizure disorder: Plan: -At home on Keppra 1750mg BID and lamotrigine 300mg BID. -However was admitted on account of acute encephalopathy. He is Keppra dose has been reduced to 750 mg twice daily and also lamotrigine 100 mg BID daily (3) Fall: Plan: -Fall at home, unclear at the current time if there was any witnessed seizure activity from the as she is not in the room with him at the time of interview. -WBC count WNL, hgb and platelets around baseline for patient. -CMP unremarkable, lactate normal, alcohol level negative. -CT head w/o acute intracranial abnormality, acute sinusitis L maxillary sinus, mild cerebral atrophy. -CT neck without any acute fractures. -Lam catheter in ER drained ~900cc, urinary retention, possible UTI vs BPH. -Patient has a history of frequent falls, difficult to say if this is the same course vs seizure. -At home, he is on Keppra 1750mg BID and lamotrigine 300mg BID. Unclear if patient is compliant. Will send for Keppra and lamotrigine level. -Possible post-ictal state with drowsiness. -Ordered EEG, consulted neurology, follows with [place] neurology outpatient, will appreciate recommendations. -Continue to monitor on telemetry (4) Urinary retention: Plan: -Now resolved (5) Hypertension: Plan: -Continue home nadolol (6) Chronic venous insufficiency: Plan: -Chronic issue. Noted. (7) Multiple skin tears: Plan: -Multiple falls, abrasions from multiple falls present, wound care ordered. (8) Frequent falls: Plan: -History of frequent falls. Fall precautions in place, PT/OT consulted for eval and treat. (9) Alcoholic cirrhosis: Plan: -Alcohol negative on admission. -continue home lactulose, spironolactone, rifaximin. (10) BPH w urinary obs/LUTS: Plan: -Likely contributing to urinary retention, continue home tamsulosin. Plan F/E/N/GI: General diet DVT Prophylaxis: Lovenox 40mg daily. Code status: Patient was DNR on previous admission, however not able to get response from patient at the current time regarding code status, will make full code - will need clarification during the day time with patient or . Dispo: Telemetry. Admission and Anticipated Discharge Date Admission Date: February 12, 2023 Subjective Patient seen and examined today, now more awake alert and oriented denies any new complaints. Review of Systems Review of Systems: All systems reviewed are negative, apart from the ones contained in the history. Physical Exam Physical Exam: The patient is awake, alert and oriented 3, well developed and well nourished, normocephalic and atraumatic, lying in bed and in no acute distress. HEENT--PERRL, EOMI, mucous membranes and oropharynx mildly dry Neck--supple. No JVD. No bruits. Thyroid normal, trachea midline, no adenopathy. Heart--normal S1 and S2. No murmurs, rubs or gallops. Lungs--clear bilaterally, no respiratory distress, no accessory muscle use. Abdomen--normal bowel sounds and soft. Mild epigastric and left sided abdominal pain Extremities--no cyanosis or clubbing. No edema. Dermatologic--normal skin turgor, normal color, no abnormal lymph nodes, no rash. Neurologic--cranial nerves II through XII grossly intact. Rheumatologic--normal range of motion. Psychiatric--normal affect. Results & Data Results & Data Vital Signs (Past 12 Hours) Vital Signs Temp Pulse Pulse Resp BP Pulse Ox O2 Del Method 02/14/23 12:29 59 L 02/14/23 10:58 97.7 F 66 16 132/83 94 Room Air 02/14/23 07:11 97.9 F 64 18 159/77 H 96 Room Air 02/14/23 05:48 65 PG Care Time/CCT Total # of Minutes Spent Total Time Spent with Patient: Total time spent is greater than 50% in coordination of care (as documented) at patient's floor/unit and/or counseling patient: Coding Level of Care Code 76709 SUB INP/OBS CARE 2/35MIN Diagnoses Acute encephalopathy G93.40 Seizure disorder G40.909 Fall W19.XXXA Urinary retention R33.9 Hypertension I10 Chronic venous insufficiency I87.2 Multiple skin tears T14.8XXA Frequent falls R29.6 Alcoholic cirrhosis K70.30 BPH w urinary obs/LUTS N40.1; N13.8 Time Spent (min) 35
[2023-02-14] MEDS: rifAXIMin 550 MG TABLET PO SCH ×2 (13:03→20:59)
[2023-02-14] MEDS: TAMSULOSIN HCL 0.4 MG CAP PO SCH (20:59)
[2023-02-14] MEDS: levETIRAcetam 250 MG TAB PO SCH (21:14)
[2023-02-14] MEDS: levETIRAcetam 500 MG TAB PO SCH (21:14)
[2023-02-15] MEDS: cephALEXin 500 MG CAP PO SCH ×4 (00:23→17:09)
[2023-02-15] MEDS: SODIUM CHLORIDE 0.9% 1,000 ML IV SCH ×2 (00:23→12:00)
[2023-02-15 08:37] LABS: Calcium 9.2 mg/dl (8.6-10.3); Potassium 3.9 mmol/L (3.5-5.1)
[2023-02-15 08:43] LABS: BUN Creatinine Ratio 22.4 (10-20); Creatinine Clr Calc Pharmacy 174.1 ml/min; Est GFR (African American) 128.4 ml/min; Est GFR (Non-African American) 110.8 ml/min
[2023-02-15] MEDS: lamoTRIgine 100 MG TAB PO SCH (10:15)
[2023-02-15] MEDS: levETIRAcetam 500 MG TAB PO SCH ×2 (10:15→19:58)
[2023-02-15] MEDS: nadoloL 40 MG TAB PO SCH (10:15)
[2023-02-15] MEDS: levETIRAcetam 250 MG TAB PO SCH (10:15)
[2023-02-15] MEDS: MAGNESIUM OXIDE 400 MG TAB PO SCH ×2 (10:15→19:58)
[2023-02-15] MEDS: CELECOXIB 100 MG CAP PO SCH ×2 (10:15→19:57)
[2023-02-15] MEDS: rifAXIMin 550 MG TABLET PO SCH ×2 (10:15→19:59)
[2023-02-15] MEDS: SPIRONOLACTONE 25 MG TAB PO SCH (10:16)
[2023-02-15] MEDS: THIAMINE HCL 100 MG TAB PO SCH (10:16)
[2023-02-15] MEDS: LACTULOSE SYRUP 20 GM/30 ML UDC PO SCH (10:16)
[2023-02-15] MEDS: ENOXAPARIN INJ 40 MG/0.4 ML SYR SQ SCH (10:16)
[2023-02-15] MEDS: allopurinoL 300 MG TAB PO SCH (10:16)
[2023-02-15] MEDS: FOLIC ACID 1 MG TAB PO SCH (10:16)
--- NOTE | 2023-02-15 11:28 | Hospitalist Progress Note ---
Date of Service February 15, 2023 Assessment & Plan (1) Acute encephalopathy: Plan: Etiology is uncertain, could be acute toxic encephalopathy due to medications. Now resolved, patient back to baseline. Etiology is likely toxic due to medications, doses have been reduced. Will continue on the reduced dose of Keppra 750 milligram twice daily and also lamotrigine 100 mg BID daily According to the patient has been cognitively declining over the past 5 days not as sharp as he used to be. She admits that he takes his medication without being monitored. Neurology on consult, MRI of the brain did not show any acute pathology, only chronic changes. EEG showed only slight slowing Ammonia level is within normal limits no sign of infection. Monitor Keppra levels and lamotrigine levels One-to-one sitter will be discontinued (2) Seizure disorder: Plan: -At home on Keppra 1750mg BID and lamotrigine 300mg BID. -However was admitted on account of acute encephalopathy. He is Keppra dose has been reduced to 750 mg twice daily and also lamotrigine 100 mg BID daily (3) Fall: Plan: -Fall at home, unclear at the current time if there was any witnessed seizure activity from the as she is not in the room with him at the time of interview. -WBC count WNL, hgb and platelets around baseline for patient. -CMP unremarkable, lactate normal, alcohol level negative. -CT head w/o acute intracranial abnormality, acute sinusitis L maxillary sinus, mild cerebral atrophy. -CT neck without any acute fractures. -Lam catheter in ER drained ~900cc, urinary retention, possible UTI vs BPH. -Patient has a history of frequent falls, difficult to say if this is the same course vs seizure. -At home, he is on Keppra 1750mg BID and lamotrigine 300mg BID. Unclear if patient is compliant. Will send for Keppra and lamotrigine level. -Possible post-ictal state with drowsiness. -Ordered EEG, consulted neurology, follows with [place] neurology outpatient, will appreciate recommendations. -Continue to monitor on telemetry (4) Urinary retention: Plan: -Now resolved (5) Hypertension: Plan: -Continue home nadolol (6) Chronic venous insufficiency: Plan: -Chronic issue. Noted. (7) Multiple skin tears: Plan: -Multiple falls, abrasions from multiple falls present, wound care ordered. (8) Frequent falls: Plan: -History of frequent falls. Fall precautions in place, PT/OT consulted for eval and treat. (9) Alcoholic cirrhosis: Plan: -Alcohol negative on admission. -continue home lactulose, spironolactone, rifaximin. (10) BPH w urinary obs/LUTS: Plan: -Likely contributing to urinary retention, continue home tamsulosin. Plan Hopefully d/c him tomorrow on a lower dose of anti convuslants F/E/N/GI: General diet DVT Prophylaxis: Lovenox 40mg daily. Code status: Patient was DNR on previous admission, however not able to get response from patient at the current time regarding code status, will make full code - will need clarification during the day time with patient or . Dispo: Telemetry. Admission and Anticipated Discharge Date Admission Date: February 12, 2023 Subjective Patient seen and examined today, now more awake alert and oriented denies any new complaints. Review of Systems Review of Systems: All systems reviewed are negative, apart from the ones contained in the history. Physical Exam Physical Exam: The patient is awake, alert and oriented 3, well developed and well nourished, normocephalic and atraumatic, lying in bed and in no acute distress. HEENT--PERRL, EOMI, mucous membranes and oropharynx mildly dry Neck--supple. No JVD. No bruits. Thyroid normal, trachea midline, no adenopathy. Heart--normal S1 and S2. No murmurs, rubs or gallops. Lungs--clear bilaterally, no respiratory distress, no accessory muscle use. Abdomen--normal bowel sounds and soft. Mild epigastric and left sided abdominal pain Extremities--no cyanosis or clubbing. No edema. Dermatologic--normal skin turgor, normal color, no abnormal lymph nodes, no rash. Neurologic--cranial nerves II through XII grossly intact. Rheumatologic--normal range of motion. Psychiatric--normal affect. Results & Data Results & Data Vital Signs (Past 12 Hours) Vital Signs Temp Pulse Pulse Resp BP BP Pulse Ox 02/15/23 07:46 56 L 02/15/23 07:39 97.5 F L 55 L 16 164/90 H 98 02/15/23 03:00 98.2 F 60 20 172/82 H 95 O2 Del Method 02/15/23 07:46 02/15/23 07:39 Room Air 02/15/23 03:00 Room Air PG Care Time/CCT Total # of Minutes Spent Total Time Spent with Patient: Total time spent is greater than 50% in coordination of care (as documented) at patient's floor/unit and/or counseling patient: Coding Level of Care Code 27558 SUB INP/OBS CARE 2/35MIN Diagnoses Acute encephalopathy G93.40 Seizure disorder G40.909 Fall W19.XXXA Urinary retention R33.9 Hypertension I10 Chronic venous insufficiency I87.2 Multiple skin tears T14.8XXA Frequent falls R29.6 Alcoholic cirrhosis K70.30 BPH w urinary obs/LUTS N40.1; N13.8 Time Spent (min) 35
[2023-02-15] MEDS: TAMSULOSIN HCL 0.4 MG CAP PO SCH (19:57)
[2023-02-15] MEDS: lamoTRIgine 25 MG TAB PO SCH (19:59)
[2023-02-16] MEDS: cephALEXin 500 MG CAP PO SCH (00:45)
[2023-02-16 06:54] LABS: Calcium 9.5 mg/dl (8.6-10.3); Creatinine Clr Calc Pharmacy 210.3 ml/min; Est GFR (African American) 138.8 ml/min; Est GFR (Non-African American) 119.8 ml/min; Potassium 4.2 mmol/L (3.5-5.1)
[2023-02-16] MEDS: levETIRAcetam 500 MG TAB PO SCH ×2 (08:11→20:21)
[2023-02-16] MEDS: lamoTRIgine 25 MG TAB PO SCH ×2 (08:11→20:21)
[2023-02-16] MEDS: ENOXAPARIN INJ 40 MG/0.4 ML SYR SQ SCH (08:11)
[2023-02-16] MEDS: SPIRONOLACTONE 25 MG TAB PO SCH (08:12)
[2023-02-16] MEDS: nadoloL 40 MG TAB PO SCH (08:12)
[2023-02-16] MEDS: LACTULOSE SYRUP 20 GM/30 ML UDC PO SCH (08:13)
[2023-02-16] MEDS: CELECOXIB 100 MG CAP PO SCH ×2 (08:13→20:20)
[2023-02-16] MEDS: rifAXIMin 550 MG TABLET PO SCH ×2 (08:13→20:21)
[2023-02-16] MEDS: FOLIC ACID 1 MG TAB PO SCH (08:13)
[2023-02-16] MEDS: allopurinoL 300 MG TAB PO SCH (08:13)
[2023-02-16] MEDS: THIAMINE HCL 100 MG TAB PO SCH (08:13)
[2023-02-16] MEDS: MAGNESIUM OXIDE 400 MG TAB PO SCH ×2 (08:13→20:21)
--- NOTE | 2023-02-16 10:12 | Hospitalist Progress Note ---
Date of Service February 16, 2023 Assessment & Plan (1) Acute encephalopathy: Plan: Etiology is uncertain, could be acute toxic encephalopathy due to medications. Now resolved, patient back to baseline. Etiology is likely toxic due to medications, doses have been reduced. Will continue on the reduced dose of Keppra 1000 milligram twice daily and also lamotrigine 150 mg BID daily Neurology on consult, MRI of the brain did not show any acute pathology, only chronic changes. EEG showed only slight slowing Ammonia level is within normal limits no sign of infection. Monitor Keppra levels and lamotrigine levels (2) Seizure disorder: Plan: -At home on Keppra 1750mg BID and lamotrigine 300mg BID. -However was admitted on account of acute encephalopathy. He is Keppra dose has been reduced to 1000 mg twice daily and also lamotrigine 150 mg BID daily (3) Fall: Plan: -Fall at home, unclear at the current time if there was any witnessed seizure activity from the as she is not in the room with him at the time of interview. -WBC count WNL, hgb and platelets around baseline for patient. -CMP unremarkable, lactate normal, alcohol level negative. -Vit b12 wnl -CT head and MRI did not show any acute pathology -Patient has a history of frequent falls, difficult to say if this is the same course vs seizure. -At home, he was on Keppra 1750mg BID and lamotrigine 300mg BID, now reduced to 1000mg BID and 150mg BID respectively. -Still unsteady in his legs occasionally when he walks -Although PT recommends home with PT, I think patient will benefit from inpatient rehab (4) Urinary retention: Plan: -Now resolved (5) Hypertension: Plan: -Continue home nadolol (6) Chronic venous insufficiency: Plan: -Chronic issue. Noted. (7) Multiple skin tears: Plan: -Multiple falls, abrasions from multiple falls present, wound care ordered. (8) Frequent falls: Plan: -History of frequent falls. Fall precautions in place, PT/OT consulted for eval and treat. (9) Alcoholic cirrhosis: Plan: -Alcohol negative on admission. -continue home lactulose, spironolactone, rifaximin. (10) BPH w urinary obs/LUTS: Plan: -Likely contributing to urinary retention, continue home tamsulosin. Plan Patient may need inpatient rehab F/E/N/GI: General diet DVT Prophylaxis: Lovenox 40mg daily. Code status: Patient was DNR on previous admission, however not able to get response from patient at the current time regarding code status, will make full code - will need clarification during the day time with patient or . Dispo: Telemetry. Admission and Anticipated Discharge Date Admission Date: February 12, 2023 Subjective Patient seen and examined today, now more awake alert and oriented, said he was unsteady on his legs while walking to the bathroom last night Review of Systems Review of Systems: All systems reviewed are negative, apart from the ones contained in the history. Physical Exam Physical Exam: The patient is awake, alert and oriented 3, well developed and well nourished, normocephalic and atraumatic, lying in bed and in no acute distress. HEENT--PERRL, EOMI, mucous membranes and oropharynx mildly dry Neck--supple. No JVD. No bruits. Thyroid normal, trachea midline, no adenopathy. Heart--normal S1 and S2. No murmurs, rubs or gallops. Lungs--clear bilaterally, no respiratory distress, no accessory muscle use. Abdomen--normal bowel sounds and soft. Mild epigastric and left sided abdominal pain Extremities--no cyanosis or clubbing. No edema. Dermatologic--normal skin turgor, normal color, no abnormal lymph nodes, no rash. Neurologic--cranial nerves II through XII grossly intact. Rheumatologic--normal range of motion. Psychiatric--normal affect. Results & Data Results & Data Vital Signs (Past 12 Hours) Vital Signs Temp Pulse Pulse Resp BP BP Pulse Ox 02/16/23 08:26 02/16/23 08:22 98.2 F 78 16 143/77 H 95 02/16/23 07:50 71 02/16/23 03:42 97.7 F 74 16 141/89 H 97 02/15/23 23:25 98.4 F 73 18 160/91 H 95 O2 Del Method 02/16/23 08:26 Room Air 02/16/23 08:22 Room Air 02/16/23 07:50 02/16/23 03:42 Room Air 02/15/23 23:25 Room Air PG Care Time/CCT Total # of Minutes Spent Total Time Spent with Patient: Total time spent is greater than 50% in coordination of care (as documented) at patient's floor/unit and/or counseling patient: Coding Level of Care Code 47164 SUB INP/OBS CARE 2/35MIN Diagnoses Acute encephalopathy G93.40 Seizure disorder G40.909 Fall W19.XXXA Urinary retention R33.9 Hypertension I10 Chronic venous insufficiency I87.2 Multiple skin tears T14.8XXA Frequent falls R29.6 Alcoholic cirrhosis K70.30 BPH w urinary obs/LUTS N40.1; N13.8 Time Spent (min) 35
[2023-02-16 19:22] LABS: Lamictal(Lamotrigine) 31.4 mcg/mL (2.5-15.0); Levetiracetam Keppra 75.3 mcg/mL (6.0-46.0)
[2023-02-16] MEDS: lamoTRIgine 100 MG TAB PO SCH (20:20)
[2023-02-16] MEDS: TAMSULOSIN HCL 0.4 MG CAP PO SCH (20:22)
[2023-02-17] MEDS ORDERED: ACETAMINOPHEN 325 MG TAB PO PRN (00:42)
[2023-02-17] MEDS: rifAXIMin 550 MG TABLET PO SCH (09:35)
[2023-02-17] MEDS: levETIRAcetam 500 MG TAB PO SCH (09:36)
[2023-02-17] MEDS: MAGNESIUM OXIDE 400 MG TAB PO SCH (09:36)
[2023-02-17] MEDS: THIAMINE HCL 100 MG TAB PO SCH (09:37)
[2023-02-17] MEDS: lamoTRIgine 100 MG TAB PO SCH (09:37)
[2023-02-17] MEDS: CELECOXIB 100 MG CAP PO SCH (09:37)
[2023-02-17] MEDS: ENOXAPARIN INJ 40 MG/0.4 ML SYR SQ SCH (09:37)
[2023-02-17] MEDS: nadoloL 40 MG TAB PO SCH (09:38)
[2023-02-17] MEDS: FOLIC ACID 1 MG TAB PO SCH (09:38)
[2023-02-17] MEDS: LACTULOSE SYRUP 20 GM/30 ML UDC PO SCH (09:38)
[2023-02-17] MEDS: SPIRONOLACTONE 25 MG TAB PO SCH (09:38)
[2023-02-17] MEDS: allopurinoL 300 MG TAB PO SCH (09:38)
[2023-02-17] MEDS: lamoTRIgine 25 MG TAB PO SCH (09:42)
--- NOTE | 2023-02-17 14:27 | Discharge Summary ---
Date of Service February 17, 2023 Admission HPI Per Admitting Provider Uvaldo is a 58 year old male w/ PmHx HTN, alcoholic cirrhosis and cerebellar degeneration, migraine, chronic venous insufficiency, multiple falls with abrasions, history of seizure due to alcohol withdrawal, peripheral neuropathy coming into the hospital for being found after a fall by his at his home. Patient was not able to converse with me, barely arousable with sternal rub and only able to respond very vaguely; was not in the room at the time of visit either. Upon speaking with the ER provider, patient was found by his earlier in the night while she was in the house with him. She had heard him fall down and found him fallen in the living room nonresponsive. He was then transported to the ER via EMS for further evaluation. Patient woke up when gomez placed a little bit later, knew he was at a hospital and that it was 2022 however not able to get much else out of the patient as he was fixated on his gomez catheter. In the ER CBC was at baseline for hemoglobin and platelets, WBC 4.99, CMP unremarkable, alcohol level negative. CT head was negative for acute intracranial issue, gas fluid level within mostly opacified L maxillary sinus consistent with acute sinusitis, mild cerebral atrophy. CT cervical spine mild multilevel degenerative disc disease and facet arthrosis throughout cervical spine without acute fracture or traumatic subluxation. Principal Diagnosis Acute toxic encephalopathy, multiple falls, urinary retention Discharge Exam Constitutional General-alert and oriented x3, no fevers, no chills HEENT-head atraumatic and normocephalic, pupils equal and reactive to light, extraocular muscles intact Neck-no lymphadenopathy or thyromegaly, trachea midline Chest-clear to auscultation percussion. No rales wheezing or rhonchi Cardiac-regular rate and rhythm, normal S1 and S2 Abdomen-normal bowel sounds, nontender, no hepatosplenomegaly Extremities-no cyanosis, clubbing, or edema Neuro-cranial nerves II through XII intact, motor and sensory function within normal limits, strength symmetrical, no focal deficits Psych-normal affect, normal mood Discharge Data Allergies Allergy/AdvReac Type Severity Reaction Status Date / Time No Known Allergies Allergy Verified 02/12/23 00:12 Consultations 02/12/23 01:26 ED Decision to Admit Stat 02/12/23 03:43 Consult Neurology Routine Ordered Studies 02/11/23 23:32 CT head/brain wo con Stat 02/11/23 23:41 CT cervical spine wo con Stat 02/12/23 10:57 MRI Brain [MR brain wo/w con] Routine Hospital Course (1) Acute encephalopathy: Probably toxic encephalopathy from antiepileptic medications. Both Keppra and lamotrigine doses have been decreased. Mental status is back to baseline. Brain MRI scan revealed only chronic changes. EEG reveals diffuse slowing. Neurology consultation and recommendations appreciated. He flatly refuses to consider IPR placement and will go home with home health services. I spoke to his , Sis, today by phone. (2) Seizure disorder: Keppra and lamotrigine doses have been decreased. Appreciate neurology consultation recommendations (3) Fall: Frequent falls at home. OT and PT assessments completed. He flatly refuses to return to [facility]. He will go home with home health services. (4) Urinary retention: Present on admission. Now resolved (5) Hypertension: Stable. Continue nadolol (6) Multiple skin tears: Suffered from multiple falls at home. Local care until healed (7) Alcoholic cirrhosis: Alcohol level negative on admission. Stable on lactulose, spironolactone, rifaximin. (8) BPH w urinary obs/LUTS: Likely contributed to urinary retention. Continue tamsulosin. Plan Home today with home health services, February 17 . Total Time Total Time Spent Total Time Spent (In Minutes): 45 minutes Discharge Plan Discharge Items Patient Disposition: Home - Home Health Services Reason For Visit: FALL WITH HISTORY OF SEIZURE Discharge Diagnosis: Acute toxic encephalopathy, transient urinary retention, frequent falls Activity: Resume your previous activity Non-emergency contact: Primary Care Provider and Neurologist Follow-up/Referrals: Giana Wan MD [Primary Care Provider] - Diet: Regular Addtl Attending Provider Instructions: Keppra and lamotrigine dosages have been decreased. Prescriptions have been sent to [facility] pharmacy Pending Studies at Discharge: No Stand-Alone Forms: [facility], Smoking Cessation Medications and DC Order Prescriptions: New levetiracetam [Keppra] 500 mg Tablet 1,000 mg PO BID Qty: 60 0RF lamotrigine [Lamictal] 25 mg Tablet 50 mg PO BID Qty: 60 0RF lamotrigine 100 mg Tablet 100 mg PO BID Qty: 60 0RF Continued magnesium hydroxide [Milk of Magnesia] 400 mg/5 mL suspension 30 ml PO DAILY PRN (Reason: Constipation) Qty: 355 0RF folic acid 1 mg tablet 1 mg PO DAILY Qty: 90 3RF magnesium oxide 400 mg (241.3 mg magnesium) tablet 400 mg PO BID Qty: 180 3RF thiamine HCl (vitamin B1) [Vitamin B-1] 100 mg tablet 100 mg PO DAILY Qty: 90 3RF spironolactone 50 mg tablet 50 mg PO DAILY Qty: 90 3RF tamsulosin 0.4 mg capsule 0.4 mg PO HS Qty: 90 1RF melatonin 3 mg tablet 3 mg PO HS Qty: 90 3RF celecoxib [Celebrex] 100 mg capsule 100 mg PO BID Qty: 60 1RF Nurtec ODT 75 mg tablet,disintegrating 75 mg PO Q OTHER DAY Qty: 16 5RF levetiracetam 250 mg tablet 250 mg PO BID Qty: 60 5RF Rx Instructions: TOTAL DOSE 1,750 MG BID Xifaxan 550 mg tablet 550 mg PO BID multivitamin with folic acid [Daily-Ellie (with folic acid)] 400 mcg Tablet 1 tab PO QAM Qty: 30 0RF polyethylene glycol 3350 [Miralax] 17 gram/dose Powder 17 g PO QDL PRN (Reason: Constipation) cephalexin 500 mg capsule 500 mg PO Q6H 7 Days Qty: 28 0RF Rx Instructions: STARTED 02/09/23 FOR 7 DAYS. nadolol 40 mg tablet 100 mg PO QAM Rx Instructions: TAKES 2 1/2 TABS. allopurinol 300 mg tablet 300 mg PO QAM lactulose 20 gram/30 mL solution 30 ml PO QAM Discontinued levetiracetam 500 mg tablet 1,500 mg PO BID 30 Days Qty: 180 5RF Rx Instructions: TOTAL DOSE 1,750 MG--TAKES WITH 250 MG TAB. lamotrigine 150 mg tablet 300 mg PO BID 30 Days Qty: 120 5RF Discharge Orders: Discharge Order (Routine); Ordered 02/17/23 Ordered By: Jed Lea Admission Data Admit Date/Time: 02/12/23 02:29 Attending Provider: Jed Lea Admit Provider: Michael Flaherty Primary Care Provider: Giana Wan Other Providers: Kraig Albert; Bebeto Wong; [facility],Home Health Coding Level of Care Code 81241 INP/OBS DISCH >30 MIN Diagnoses Acute encephalopathy G93.40 Seizure disorder G40.909 Fall W19.XXXA Urinary retention R33.9 Hypertension I10 Multiple skin tears T14.8XXA Alcoholic cirrhosis K70.30 BPH w urinary obs/LUTS N40.1; N13.8
== END 2023-02-17 18:33 | disposition home health service (06) | DRG 917 ==
LOC: ED 23:16 → EDINP 02-12 02:29 → SUATTDRO 02-12 02:29 → 2N 02-12 03:42